=== PATIENT | male | born 1970 | race Caucasian/White ===

== ENCOUNTER 2020-07-31 23:23 | Emergency (ER) | payer OTHER, SELFPAY ==
--- NOTE | 2020-08-01 | ECG_ITS ---
Test Reason : CHEST PAIN Blood Pressure : / mmHG Vent. Rate : 079 BPM Atrial Rate : 079 BPM P-R Int : 196 ms QRS Dur : 154 ms QT Int : 408 ms P-R-T Axes : 055 024 -41 degrees QTc Int : 467 ms Atrial-sensed ventricular-paced rhythm Abnormal ECG When compared with ECG of 10-MAY-2020 23:18, Vent. rate has increased BY 9 BPM Referred By: Ran Lucero Electronically Signed By:JESSIE BELTRAN
[2020-08-01 01:10] VITALS: BP 126/76; PULSE 78; RESP 18; TEMP 36.9; O2SAT 99; BMI 35.5
--- NOTE | 2020-08-01 01:13 | XR_ITS ---
EXAMINATION: XR CHEST CLINICAL INFORMATION: Chest tightness COMPARISON: Report from 05/10/2020 TECHNIQUE: 2 views of the chest were obtained. FINDINGS: Left chest wall AICD/pacer with leads over the right atrium and right ventricle. Coronary sinus lead noted with curled course. Unfortunately, previous images are not available for comparison to assess for stability of lead positioning. The lungs are well expanded. There is no focal consolidation, edema, or effusion. No pneumothorax. The cardiomediastinal silhouette is within normal limits. No acute osseous abnormality. IMPRESSION: No acute pulmonary finding.
[2020-08-01 01:29] LABS: MANUAL DIFF FLAG NO
[2020-08-01 01:30] LABS: Basophils Percent Auto 0.5 % (0-2); Eosinophils Absolute Auto 0.2 X10*3/uL (0.0-0.4); Eosinophils Percent Auto 3.5 % (0-4); Hematocrit 39.3 % (42-52); Hemoglobin 13.8 g/dl (14.0-18.0); Imm Gran Abs Auto 0.03 X10*3/uL (0.00-0.03); Imm Gran Pct Auto 0.5 % (0.0-0.4); Lymphocytes Percent Auto 34.9 % (20-40); Mean Corpuscular HGB Conc 35.1 g/dl (31.0-36.0); Mean Corpuscular Hemoglobin 30.2 pg (27.0-33.0); Mean Platelet Volume 10.3 fL (9.4-12.4); Monocytes Absolute Auto 0.5 X10*3/uL (0.1-1.2); Monocytes Percent Auto 7.8 % (2-11); Neutrophils Absolute Auto 3.1 X10*3/uL (2.0-8.3); Neutrophils Percent Auto 52.8 % (45-73); Platelet Count 193 X10*3/uL (160-400); Red Blood Count 4.57 X10*6/uL (4.60-5.80); Red Cell Distribution Width 12.2 % (11.0-16.0); White Blood Count 5.8 X10*3/uL (4.8-10.8)
[2020-08-01 02:09] LABS: Anion Gap 13 (12-20); Blood Urea Nitrogen 16 mg/dL (9-16); Calcium 9.2 mg/dL (8.4-10.2); Carbon Dioxide 22 mmol/L (22-29); Chloride 103 mmol/L (96-108); Creatinine Clr Calc Pharmacy 74.3; Estimated Glomerular Filt Rate 57; Glucose Random 265 mg/dL (60-115); Sodium 134 mmol/L (135-145)
== END 2020-08-01 05:08 | disposition left against medical advice (07) ==
LOC: HO.ED 08-01 04:41
PROVIDERS: Emergency Provider Emergency Medicine
DX: Z20.828 Contact with and (suspected) exposure to other viral communicable diseases (principal)
CPT/HCPCS: 36415; 71046; 80048; 84484; 85025; 93005; 93010; 99282; 99283

== ENCOUNTER 2020-08-01 11:11 | Emergency (ER) | payer OTHER, SELFPAY ==
--- NOTE | 2020-08-01 11:12 | ECG_ITS ---
Test Reason : CHEST PAIN Blood Pressure : / mmHG Vent. Rate : 060 BPM Atrial Rate : 060 BPM P-R Int : 150 ms QRS Dur : 166 ms QT Int : 436 ms P-R-T Axes : 040 -07 -40 degrees QTc Int : 436 ms Atrial-sensed ventricular-paced rhythm Abnormal ECG When compared with ECG of 31-JUL-2020 23:25, Vent. rate has decreased BY 19 BPM Referred By: Dinora Munson Electronically Signed By:RUSTY WEBSTER MD
[2020-08-01 11:38] VITALS: BP 102/57; PULSE 73; RESP 18; TEMP 35.8; O2SAT 97; BMI 35.5
--- NOTE | 2020-08-01 14:09 | ED_ITS ---
HPI - Chest Pain General Chief Complaint: Chest Pain Stated Complaint: chest pain Time Seen by Provider: 08/01/20 13:42 Source: patient Mode of arrival: ambulatory History of Present Illness HPI narrative: 50-year-old male with a past medical history of DM, HTN, HLD, pacemaker, CHF, asthma c/o sudden onset chest tightness and SOB around 11:00 p.m. last night while rest. Reports symptoms constant since start. Also reports associated pain with inspiration. Denies fever, chills, cough, LE edema, calf pain, history of clots, recent travel, sick contacts, exposures to COVID-19 complaint: chest pain Onset (ago): day(s) Timing of current episode: constant Onset: during rest Severity: moderate Quality: tightness Risk Factors Coronary artery disease risk factors: diabetes, hyperlipidemia and hypertension Related Data Previous Rx's Medication Instructions Recorded albuterol sulfate 2 inh INHALATION Q4-6H PRN #1 ea 08/01/20 prednisone 40 mg PO DAILY 5 Days #10 tab 08/01/20 Allergies Allergy/AdvReac Type Severity Reaction Status Date / Time No Known Allergies Allergy Verified 08/01/20 11:38 [No Known Allergies*] Review of Systems Review of Systems: Constitutional: No Weight loss, No Fever, No Chills, No Night Sweats, No Fatigue, No Malaise ENT/Mouth: No Hearing loss, No Ear Pain, No Nasal Congestion, No Sinus Pain, No sore throat, No Rhinorrhea, No Swallowing Difficulty Eyes: No Eye Pain, No Swelling, No Redness, No Foreign Body, No Discharge, No Vision Changes Cardiovascular: Chest Pain, SOB, No Orthopnea, No Edema, No Palpitations Respiratory: No Cough, No Sputum, No Wheezing, No Smoke Exposure Gastrointestinal: No Nausea, No Vomiting, No Diarrhea, No Constipation, No abdominal Pain, No Hematochezia, No Melena Musculoskeletal: No joint pain, No Myalgias, No Joint Swelling Skin: No Skin Lesions, No rash Neuro: No Weakness, No Numbness, No Paresthesias, No Loss of Consciousness, No Dizziness, No Headache Psych: No Anxiety/Panic, No Depression, No SI/HI/AH/VH, No Social Issues, Heme/Lymph: No Bruising, No Bleeding, No Lymphadenopathy Endocrine: No Polyuria, No Polydipsia, No Temperature Intolerance Yes all other systems are reviewed and are negative PMFSH Past Medical History Attestation statement: The following information was validated with the patient. Medical History Diabetes High cholesterol HTN (hypertension) Pacemaker Social History Social History Advance Directives: No Advance Directives Information Provided: Yes Physical Exam Vital Signs and I&O and Narrative: Vital Signs and I&O: Vital Signs Temp 97.5 F 08/01/20 14:46 Pulse 60 08/01/20 14:46 Resp 22 H 08/01/20 14:46 BP 106/54 L 08/01/20 14:46 Pulse Ox 92 08/01/20 14:46 Intake & Output 07/31/20 08/01/20 08/01/20 18:59 06:59 18:59 Weight 99.798 kg Body Mass Index 35.5 Appearance: Alert. Oriented X3. No acute distress. Eyes: Pupils equal, round and reactive to light. ENT: Pharynx normal. Neck: Normal inspection. Neck supple. CVS: Normal heart rate and rhythm. Pulses normal. Respiratory: No respiratory distress. decreased breath sounds bibasilarly Abdomen: Soft and nontender. Skin: Skin warm and dry. Normal skin color. Normal skin turgor. Extremities: No lower extremity edema. No lower extremity edema. no calf pain Neuro: Oriented X 3. No motor deficit. No sensory deficit. Course Course Course Narrative: -1550-- D-dimer negative, creatinine slightly higher than baseline 1.47 >> will give 1 IVF initial troponin 5.0, repeat 5.6 > VT unlikely with delta CXR unremarkable -1600-- on re-evaluation patient reports symptomatic improvement after DuoNeb. Lungs with better air movement after treatment > Likely asthma exacerbation. also reports decreased p.o. intake. will give additional DuoNeb, IV Solu-Medrol and IVF with anticipated discharge home MDM - Chest Pain MDM Narrative Medical decision making narrative: 50-year-old male with a past medical history of DM, HTN, HLD, pacemaker, CHF, asthma c/o sudden onset chest tightness and SOB around 11:00 p.m. last night while rest. on exam VSS, NAD, nontoxic appearing, decreased breath sounds bibasilarly. Concern for ACS vs CHF vs PE vs asthma exacerbation. Low concern for dissection, viral syndrome/COVID-19, or pneumonia Plan: EKG, labs, CXR, albuterol, reassess Lab Data Result diagrams: 08/01/20 14:40 08/01/20 14:40 Labs: Lab Results 08/01/20 08/01/20 08/01/20 Range/Units 14:40 14:40 14:40 WBC 5.2 (4.8-10.8) X10*3/uL RBC 4.50 L (4.60-5.80) X10*6/uL Hgb 13.7 L (14.0-18.0) g/dl Hct 38.0 L (42-52) % MCV 84.4 (80-98) fL MCH 30.4 (27.0-33.0) pg MCHC 36.1 H (31.0-36.0) g/dl RDW 12.3 (11.0-16.0) % Plt Count 205 (160-400) X10*3/uL MPV 10.2 (9.4-12.4) fL Immature Gran % (Auto) 0.4 (0.0-0.4) % Neut % (Auto) 58.6 (45-73) % Lymph % (Auto) 30.0 (20-40) % [place] % (Auto) 7.5 (2-11) % Eos % (Auto) 3.1 (0-4) % Baso % (Auto) 0.4 (0-2) % Neut # (Auto) 3.0 (2.0-8.3) X10*3/uL Lymph # (Auto) 1.6 (1.2-4.9) X10*3/uL [place] # (Auto) 0.4 (0.1-1.2) X10*3/uL Eos # (Auto) 0.2 (0.0-0.4) X10*3/uL Baso # (Auto) 0.0 (0.0-0.2) X10*3/uL Abs Immat Gran (auto) 0.02 (0.00-0.03) X10*3/uL Absolute Nucleated RBC 0.000 (0.0-0.012) X10*3/uL Nucleated RBC % (auto) 0.0 (0.0-0.2) /100WBC D-Dimer < 200 NG/ML Sodium 137 (135-145) mmol/L Potassium 4.1 (3.3-5.1) mmol/l Chloride 102 (96-108) mmol/L Carbon Dioxide 24 (22-29) mmol/L Anion Gap 15 (12-20) BUN 16 (9-16) mg/dL Creatinine 1.47 H (0.5-1.4) mg/dL Estim Creat Clear Calc 67.2 Estimated GFR 51 Random Glucose 319 H (60-115) mg/dL Calcium 9.4 (8.4-10.2) mg/dL Magnesium 1.9 (1.6-2.6) mg/dL Total Bilirubin 0.3 (0.0-1.0) mg/dL Direct Bilirubin < 0.2 (0.0-0.5) mg/dL AST 16 (5-37) U/L ALT 23 (0-40) U/L Alkaline Phosphatase 85 (39-117) U/L Troponin I High Sens (<3.5-35.0) ng/L B-Natriuretic Peptide (<100) pg/mL Total Protein 7.0 (6.5-8.0) g/dL Albumin 4.2 (3.5-5.0) g/dL 08/01/20 Range/Units 14:40 WBC (4.8-10.8) X10*3/uL RBC (4.60-5.80) X10*6/uL Hgb (14.0-18.0) g/dl Hct (42-52) % MCV (80-98) fL MCH (27.0-33.0) pg MCHC (31.0-36.0) g/dl RDW (11.0-16.0) % Plt Count (160-400) X10*3/uL MPV (9.4-12.4) fL Immature Gran % (Auto) (0.0-0.4) % Neut % (Auto) (45-73) % Lymph % (Auto) (20-40) % [place] % (Auto) (2-11) % Eos % (Auto) (0-4) % Baso % (Auto) (0-2) % Neut # (Auto) (2.0-8.3) X10*3/uL Lymph # (Auto) (1.2-4.9) X10*3/uL [place] # (Auto) (0.1-1.2) X10*3/uL Eos # (Auto) (0.0-0.4) X10*3/uL Baso # (Auto) (0.0-0.2) X10*3/uL Abs Immat Gran (auto) (0.00-0.03) X10*3/uL Absolute Nucleated RBC (0.0-0.012) X10*3/uL Nucleated RBC % (auto) (0.0-0.2) /100WBC D-Dimer NG/ML Sodium (135-145) mmol/L Potassium (3.3-5.1) mmol/l Chloride (96-108) mmol/L Carbon Dioxide (22-29) mmol/L Anion Gap (12-20) BUN (9-16) mg/dL Creatinine (0.5-1.4) mg/dL Estim Creat Clear Calc Estimated GFR Random Glucose (60-115) mg/dL Calcium (8.4-10.2) mg/dL Magnesium (1.6-2.6) mg/dL Total Bilirubin (0.0-1.0) mg/dL Direct Bilirubin (0.0-0.5) mg/dL AST (5-37) U/L ALT (0-40) U/L Alkaline Phosphatase (39-117) U/L Troponin I High Sens 5.6 (<3.5-35.0) ng/L B-Natriuretic Peptide 53 (<100) pg/mL Total Protein (6.5-8.0) g/dL Albumin (3.5-5.0) g/dL ECG Data ECG #1: Attestation: I personally reviewed and interpreted this ECG as follows: Prior ECG tracings: available for review Interpretation: Atrial paced. Rate of 60. no ST elevation. unchanged from priors. Scores Heart Score History: -0- slightly suspicious ECG: -0- normal Age: -1- >45 - <65 Risk factory: -2- 3 or more risk factors or treated atherosclerosis Troponin: -0- < or = normal limit Score: 3 Risk: 1.7% Discharge Plan Discharge Clinical Impression: Chest pain, Asthma Instructions: Chest Pain (ED), Asthma (ED) Prescriptions: New prednisone 20 mg tablet 40 mg PO DAILY 5 Days Qty: 10 RF: 0 albuterol sulfate 90 mcg/actuation aerosol powdr breath activated 2 inh inhalation Q4-6H PRN (Reason: shortness of breath or wheezing) Qty: 1 RF: 0 Referrals: Tor Villela MD [Primary Care Provider] - 2 days Jose Nielson MD [Physician] - 2 days Print Language: Tunisian
[2020-08-01 14:46] VITALS: BP 106/54; PULSE 60; RESP 22; TEMP 36.4; O2SAT 92
[2020-08-01 14:54] LABS: MANUAL DIFF FLAG NO
[2020-08-01 14:56] LABS: Basophils Percent Auto 0.4 % (0-2); Eosinophils Absolute Auto 0.2 X10*3/uL (0.0-0.4); Eosinophils Percent Auto 3.1 % (0-4); Hemoglobin 13.7 g/dl (14.0-18.0); Imm Gran Abs Auto 0.02 X10*3/uL (0.00-0.03); Imm Gran Pct Auto 0.4 % (0.0-0.4); Lymphocytes Absolute Auto 1.6 X10*3/uL (1.2-4.9); Mean Corpuscular HGB Conc 36.1 g/dl (31.0-36.0); Mean Corpuscular Hemoglobin 30.4 pg (27.0-33.0); Mean Corpuscular Volume 84.4 fL (80-98); Mean Platelet Volume 10.2 fL (9.4-12.4); Monocytes Absolute Auto 0.4 X10*3/uL (0.1-1.2); Monocytes Percent Auto 7.5 % (2-11); Neutrophils Percent Auto 58.6 % (45-73); Platelet Count 205 X10*3/uL (160-400); Red Cell Distribution Width 12.3 % (11.0-16.0); White Blood Count 5.2 X10*3/uL (4.8-10.8)
[2020-08-01 15:06] LABS: D Dimer < 200 NG/ML
[2020-08-01] MEDS: Albuterol/Iprat 2.5/0.5MG 3 ML AMPUL.NEB INHALE ×2 (15:21→16:42)
[2020-08-01 15:27] LABS: Alanine Aminotransferase 23 U/L (0-40); Albumin Level 4.2 g/dL (3.5-5.0); Alkaline Phosphatase 85 U/L (39-117); Anion Gap 15 (12-20); Aspartate Amino Transferase 16 U/L (5-37); Bilirubin Direct < 0.2 mg/dL (0.0-0.5); Bilirubin Total 0.3 mg/dL (0.0-1.0); Blood Urea Nitrogen 16 mg/dL (9-16); Calcium 9.4 mg/dL (8.4-10.2); Carbon Dioxide 24 mmol/L (22-29); Chloride 102 mmol/L (96-108); Creatinine Clr Calc Pharmacy 67.2; Estimated Glomerular Filt Rate 51; Glucose Random 319 mg/dL (60-115); Magnesium 1.9 mg/dL (1.6-2.6); Potassium 4.1 mmol/l (3.3-5.1); Sodium 137 mmol/L (135-145)
[2020-08-01 15:30] LABS: B Type Natriuretic Peptide 53 pg/mL (<100); Troponin-I High Sensitivity 5.6 ng/L (<3.5-35.0)
--- NOTE | 2020-08-01 16:02 | PC.NURSE ---
REASSESSED BY MLP AT THIS TIME
[2020-08-01] MEDS: 0.9 % Sodium Chloride 1,000 ML 999 ML IVCONT (16:18)
[2020-08-01] MEDS: methylPREDNISolone Sod Succ/PF 125 MG/2 ML VIAL IVPUSH (16:19)
--- NOTE | 2020-08-01 16:19 | PC.NURSE ---
iv est 20 g l hand. ivf and steroids per orders. rt on way for 2nd ud
[2020-08-01 16:20] VITALS: BP 138/69; PULSE 76; RESP 18
== END 2020-08-01 17:30 | disposition home or self-care (01) ==
PROVIDERS: Physician Assistant; Emergency Provider Emergency Medicine; PCP Internal Medicine
DX: R07.9 Chest pain, unspecified (principal); J45.909 Unspecified asthma, uncomplicated; I10 Essential (primary) hypertension; E11.9 Type 2 diabetes mellitus without complications; Z20.828 Contact with and (suspected) exposure to other viral communicable diseases; Z79.899 Other long term (current) drug therapy
CPT/HCPCS: 36415; 80048; 80076; 83735; 83880; 84484; 85025; 85379; 93005; 96361; 96374; 99283; 99284; J2930

== ENCOUNTER → 2020-08-16 13:06 | Outpatient (BNVA) | payer OTHER, SELFPAY | PROVIDERS: PCP Internal Medicine; Referring Provider Internal Medicine; Visit Provider Nurse Practitioner Family | DX: I42.8 Other cardiomyopathies (principal); I10 Essential (primary) hypertension; E78.00 Pure hypercholesterolemia, unspecified; Z79.899 Other long term (current) drug therapy; Z95.810 Presence of automatic (implantable) cardiac defibrillator | CPT/HCPCS: 99214 ==

== ENCOUNTER 2020-11-09 13:10 | Outpatient (REF) | payer OTHER, SELFPAY | END 2020-11-09 13:11 | disposition home or self-care (01) | LOC: HO.LAB 13:10 | PROVIDERS: PCP Internal Medicine; Visit Provider Internal Medicine | DX: Z20.822 Contact with and (suspected) exposure to COVID-19 (principal) | CPT/HCPCS: 36415; C9803; U0003 ==

== ENCOUNTER 2020-12-12 12:59 | Outpatient (REF) | payer OTHER, SELFPAY ==
[2020-12-12 15:24] LABS: Anion Gap 14 (12-20); Carbon Dioxide 27 mmol/L (22-29); Chloride 97 mmol/L (96-108); Potassium 4.8 mmol/L (3.3-5.1); Sodium 133 mmol/L (135-145)
[2020-12-12 15:25] LABS: Blood Urea Nitrogen 21 mg/dL (9-16); Calcium 9.5 mg/dL (8.4-10.2); Estimated Glomerular Filt Rate 44
[2020-12-12 15:35] LABS: B Type Natriuretic Peptide 16 pg/mL (<100)
[2020-12-12 16:42] LABS: Glucose Random 448 mg/dL (60-115)
== END 2020-12-12 13:00 | disposition home or self-care (01) ==
LOC: HO.LAB 12:59
PROVIDERS: PCP Internal Medicine; Visit Provider Internal Medicine Cardiovascular Disease
DX: T82.110A Breakdown (mechanical) of cardiac electrode, initial encounter (principal); I50.20 Unspecified systolic (congestive) heart failure; I42.8 Other cardiomyopathies; Z45.02 Encounter for adjustment and management of automatic implantable cardiac defibrillator
CPT/HCPCS: 36415; 80048; 83880; 99212

== ENCOUNTER 2020-12-29 15:17 | Outpatient (REF) | payer OTHER, SELFPAY | END 2020-12-29 15:18 | disposition home or self-care (01) | LOC: HO.LAB 15:17 | PROVIDERS: Visit Provider Internal Medicine | DX: Z20.822 Contact with and (suspected) exposure to COVID-19 (principal) | CPT/HCPCS: 36415; C9803; U0003; U0005 ==

== ENCOUNTER → 2021-03-13 08:29 | Outpatient (BNVA) | payer OTHER, SELFPAY | PROVIDERS: PCP Internal Medicine; Visit Provider Nurse Practitioner Gerontology | DX: E11.22 Type 2 diabetes mellitus with diabetic chronic kidney disease (principal); I12.9 Hypertensive chronic kidney disease with stage 1 through stage 4 chronic kidney disease, or unspecified chronic kidney disease; N18.9 Chronic kidney disease, unspecified; E78.5 Hyperlipidemia, unspecified; E66.09 Other obesity due to excess calories; B35.3 Tinea pedis | CPT/HCPCS: 82947; 99212 ==

== ENCOUNTER → 2021-05-17 13:11 | Outpatient (REF) | payer OTHER, SELFPAY ==
--- NOTE | 2021-05-17 13:17 | CA_ITS ---
Transthoracic Echocardiogram Patient (Last, First, Middle): Ian Godinez, Gender: Male Date of : 1970 Age: 50 Procedure Date: 05/17/2021 Procedure Type: Transthoracic Echocardiogram Location: OP Height: 170.18 cm Weight: 97.52 kg BSA: 2.09 m2 Heart Rate: bpm BP: 110 / 64 mmHg Audio Installer: GREGG/FRANCES Referring MD: Jose Nielson MD Production Analyst: Jose Nielson MD Symptoms: I50.20 - Unspecified systolic (congestive) heart failure Study Quality: Fair/Contrast ECG Rhythm: Ventriculary paced rhythm Conclusions: - 1. [id number] LV systolic dysfunction with impaired relaxation filling pattern and elevated filling pressures 2. Moderately dilated left atrium 3. Mild mitral regurgitation 4. Normal RV systolic pressure 5. No pericardial effusion Findings Procedure Information Contrast agent, definity, is being given per protocol without apparent complications. Left Ventricle Normal left ventricular cavity size. There is normal left ventricular wall thickness. The left ventricular systolic function is mild to moderately decreased. The visually estimated ejection fraction is between 40-45%. There is moderate global hypokinesis. Spectral Doppler is indicative of an impaired relaxation filling pattern. Elevated filling pressures. E/E prime ratio is >15, consistent with elevated filling pressures. Right Ventricle Normal right ventricular cavity size and systolic function. There is an ICD wire seen in the right ventricle. Atria The left atrium is moderately dilated. There is no evidence of interatrial shunt. The right atrium is mildly dilated. A pacemaker wire is identified in the right atrium. Aortic Valve Normal aortic valve structure and function. There is no aortic valve stenosis. There is no aortic valve regurgitation. Mitral Valve There is mild anterior and posterior mitral leaflet thickening. There is mild mitral valve regurgitation. There is no mitral valve stenosis. Pulmonic Valve The pulmonic valve is likely normal. Tricuspid Valve Likely normal tricuspid valve structure and function. There is mild tricuspid valve regurgitation. The right ventricular systolic pressure is normal. The right ventricular systolic pressure is 29 mmHg. Normal right atrial pressure. There is no evidence of pulmonary hypertension. Great Vessels All visible segments of the aorta are normal in size. The pulmonary artery was not well visualized. Venous The inferior vena cava is normal in size and collapses greater than 50% with inspiration. Pericardium/Pleural There is no evidence of pericardial effusion. Prior Study Comparison No significant change compared to prior study dated: 07/07/2020. Measurements 2D Linear Measurements IVSd: 0.95 0.6-0.9/0.6-1.0 cm LVIDd: 5.45 3.9-5.3/4.2-5.9 cm LVIDd Index: 2.61 2.4-3.2/2.2-3.1 cm/m2 LVIDs: 4.55 2.0-3.6 cm LVPWd: 0.99 0.7-1.1 cm Ao Root: 3.30 2.1-3.5 cm LA Diam: 4.30 2.7-3.8/3.0-4.0 cm LAIDs Index: 2.06 1.5-2.3 cm/m2 LV Mass: 251.03 67-162/88-224 g LV Mass Index: 120.11 43-95/49-115 g/m2 LVOT Diam: 2.00 3.0+(-)1.3 cm 2D Systolic Function EF 4C: 41.60 >55% EF 2C: 40.40 >55% EF BiP: 40.70 >55% Mitral Valve MV Pk E: 1.18 MV PK A: 1.38 MV Decel Time: 270.00 E/A: 0.90 E'Lateral: 5.00 E'Medial: 5.22 E/E' Med: 22.60 E/E' Lat: 23.60 PHT: 79.00 MVA PHT: 2.78 Decel [place]: 4.38 Aortic Valve AoV Pk [place]: 1.68 AoV Mn Uastyn: 1.14 AoV VTI: 0.30 AoV Pk Grad: 11.00 Aov Mn Grad: 6.00 ALLAN Cont.VTI: 2.05 LVOT LVOT Pk Austyn: 1.11 LVOT Mn Austyn: 0.75 LVOT VTI: 0.19 LVOT Pk Grad: 5.00 LVOT Mn Grad: 3.00 LVOT Diam: 2.00 LVOT Area: 3.14 Diastolic Function MV Pk E: 1.18 MV Pk A: 1.38 E/A: 0.90 E'Medial: 5.22 E/E' Med: 22.60 E' Laterial: 5.00 E/E' Lat: 23.60 Tricuspid Valve TR Pk Austyn: 2.53 TR Pk Grad: 26.00 RA Press: 3.00 RVSP: 29.00 Great Vessels Aorta Ao Root-2D: 3.30 2.0-3.7 cm Ao Asc: 3.20 2.1-3.4 cm Ao Arch: 2.80 Updated in Other Vendor System with Status of Final Jose Nielson MD electronically signed on 05/18/2021 2:40:13 PM with status of Final
== END ==
LOC: HO.CARD 13:11
PROVIDERS: Visit Provider Internal Medicine Cardiovascular Disease
DX: I42.8 Other cardiomyopathies (principal); I50.20 Unspecified systolic (congestive) heart failure; Z95.810 Presence of automatic (implantable) cardiac defibrillator
CPT/HCPCS: 93306; Q9957

== ENCOUNTER → 2021-06-26 09:51 | Outpatient (BNVA) | payer OTHER, SELFPAY | PROVIDERS: PCP Internal Medicine; Visit Provider Nurse Practitioner Gerontology | DX: E11.22 Type 2 diabetes mellitus with diabetic chronic kidney disease (principal); I12.9 Hypertensive chronic kidney disease with stage 1 through stage 4 chronic kidney disease, or unspecified chronic kidney disease; N18.30 Chronic kidney disease, stage 3 unspecified; E78.00 Pure hypercholesterolemia, unspecified; E66.09 Other obesity due to excess calories; Z68.33 Body mass index [BMI] 33.0-33.9, adult | CPT/HCPCS: 82947; 99212 ==

== ENCOUNTER → 2021-07-23 10:35 | Outpatient (BNVA) | payer OTHER, SELFPAY | PROVIDERS: PCP Internal Medicine; Referring Provider Internal Medicine; Visit Provider Internal Medicine Cardiovascular Disease | DX: Z45.02 Encounter for adjustment and management of automatic implantable cardiac defibrillator (principal) | CPT/HCPCS: 99212 ==

== ENCOUNTER 2021-09-06 10:16 | Emergency (ER) | payer OTHER, SELFPAY ==
[2021-09-06 10:23] VITALS: BP 94/48; PULSE 73; RESP 19; TEMP 36.6; O2SAT 98; BMI 33.8
--- NOTE | 2021-09-06 11:25 | ED_ITS ---
HPI - Extremity Problem General Chief complaint: Extremity Injury, Upper Stated complaint: rt arm pain, itchy swollen hands Time Seen by Provider: 09/06/21 11:25 Source: patient Limitations: language barrier History of Present Illness HPI Narrative: Patient presents to the ER complaining of bilateral hand itching. Patient denies any pain. Patient interviewed with a foreign language interpreter. 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 Worsening itching over the past 24 hours. Patient also complaining of biceps patent after injuring his arm while pulling on a screw at work. Pain increases with range of motion or palpation of the bicipital tendon. Pain 6/10. Patient has longstanding history of hypercholesterolemia and diabetes which he takes metformin and Trulicity and Lantus 4. Symptoms are moderate. No other complaints at this time. No family members have similar rashes at home. Related Data Home Medications Medication Instructions Recorded Confirmed atorvastatin 20 mg tablet 20 mg PO DAILY 08/16/20 07/23/21 cholecalciferol (vitamin D3) 25 25 mcg PO QAM 08/16/20 07/23/21 mcg (1,000 unit) tablet trazodone 150 mg tablet 150 mg PO DAILY 08/16/20 07/23/21 insulin aspart U-100 100 unit/mL 12 unit SUBCUT ml 03/13/21 07/23/21 (3 mL) subcutaneous pen insulin glargine 100 unit/mL 40 unit SUBCUT ml 03/13/21 07/23/21 subcutaneous solution sertraline 100 mg tablet 100 mg PO tab 03/13/21 07/23/21 hydroxyzine pamoate 50 mg capsule 50 mg PO DAILY PRN 06/26/21 07/23/21 loratadine 10 mg tablet 10 mg PO DAILY 06/26/21 07/23/21 mirtazapine 45 mg tablet 45 mg PO BEDTIME 06/26/21 07/23/21 Previous Rx's Medication Instructions Recorded albuterol sulfate 2.5 mg/0.5 mL 5 mg INHALATION Q6H PRN #30 ea 08/01/20 solution for nebulization albuterol sulfate 90 mcg/actuation 2 inh INHALATION Q4-6H PRN #1 ea 08/01/20 breath activated powder inhaler blood sugar diagnostic (FreeStyle #150 ea 03/13/21 Lite Strips) lancets 33 gauge (TRUEplus Lancets) #200 ea 03/13/21 terbinafine HCl 1 % topical cream 1 appl TOPICAL BID #15 g 03/13/21 empagliflozin 10 mg tablet 10 mg PO QAM #30 tab 06/26/21 (Jardiance) metformin 500 mg tablet 500 mg PO BID #60 tab 06/26/21 dulaglutide 0.75 mg/0.5 mL 0.75 mg (0.5 mL) SUBCUT QWEEK #2 ml 07/04/21 subcutaneous pen injector (Trulicity) ivabradine 7.5 mg tablet (Corlanor) 7.5 mg PO BID #60 tab 08/08/21 sacubitril 97 mg-valsartan 103 mg 1 tab PO BID #60 tab 08/08/21 tablet (Entresto) spironolactone 25 mg tablet 25 mg PO QAM #90 tab 08/13/21 digoxin 250 mcg (0.25 mg) tablet 250 mcg PO QAM #90 tab 08/17/21 furosemide 80 mg tablet 80 mg PO QAM #90 tab 08/17/21 carvedilol 25 mg tablet See Rx Instructions PO BID #120 tab 09/06/21 dexamethasone 6 mg tablet 6 mg PO DAILY #4 tab 09/06/21 (Decadron) diphenhydramine HCl 50 mg capsule 50 mg PO TID PRN #20 cap 09/06/21 methocarbamol 750 mg tablet 750 mg PO TID PRN #30 tab 09/06/21 Allergies Allergy/AdvReac Type Severity Reaction Status Date / Time No Known Allergies Allergy Verified 06/26/21 10:22 [No Known Allergies*] Review of Systems Constitutional: Constitutional: Denies chills, Denies fever(s) and Denies headache(s) ENT: Denies headache(s) Cardiovascular: Cardiovascular: Denies chest pain and Denies dyspnea Respiratory: Respiratory: Denies dyspnea Gastrointestinal: Gastrointestinal: Denies nausea and Denies vomiting Musculoskeletal: Musculoskeletal: Denies joint swelling and Denies limited range of motion Comments: Right biceps pain Integumentary/Breasts: Skin/Breast: Reports rash Neurologic: Denies headache(s) [facility] Past Medical History Medical History Diabetes Heart failure with reduced ejection fraction High cholesterol HLD (hyperlipidemia) HTN (hypertension) Nonischemic cardiomyopathy Obesity due to excess calories NANO (obstructive sleep apnea) Pacemaker Type 2 diabetes mellitus with chronic kidney disease Surgical History History of circumcision History of permanent cardiac pacemaker placement (~2008) Hx of cardiac cath (~2006) Hx of transesophageal echocardiography (DAWN) for monitoring (~2014) Family History Family History Father HTN (hypertension) Diabetes CVD (cardiovascular disease) Hypercholesterolemia Mother Hypercholesterolemia HTN (hypertension) Diabetes Social History Social History Household Members: Significant Other Household Members Other:: SO:Thu Patient Tobacco Use Status: Current someday Tobacco user Advance Directives: No Physical Exam Vital Signs: Vital Signs: Last Vital Signs Temp 98 F 09/06/21 10:23 Pulse 73 09/06/21 10:23 Resp 19 09/06/21 10:23 BP 94/48 L 09/06/21 10:23 Pulse Ox 98 09/06/21 10:23 Body Mass Index 33.8 vital signs have been reviewed as normal and appeared to be correct. Blood pressure normal. Heart rate normal. Respiration rate normal. Temperature normal. Oxygen saturation normal. Appearance: Alert. Oriented X3. No acute distress. Head: Normal external exam. Normocephalic. Atraumatic. Eyes: PERRLA. EOMI. Conjunctiva and sclera normal. Eyelids normal. ENT: Pharynx normal. Uvula midline. Moist mucous membranes. Neck: Soft full range of motion CVS: Heart regular rate and rhythm no murmurs and rubs Respiratory: Breath sounds are clear to auscultation bilaterally. No accessory muscle use noted. Abdomen: Soft nontender no rebound or guarding positive bowel sounds Skin: Slight raised maculopapular rash to the bilateral hands webspaces are clear. Positive fortune cookie maker is equal bilaterally of the hands full flexion-extension positive pulses positive cessation no sign of lymphangitis. Extremities: Positive tenderness in the right bicep tendon no sign of bicipital tendon rupture. On exam. Neuro: Oriented X 3. No motor deficit. No sensory deficit. Reflexes normal. Course Course Course Narrative: Contact dermatitis Scabies Right arm pain Bicipital tendon rupture Bicipital tendinitis Symptoms consistent with a contact dermatitis and bicipital tendinitis. Will treat patient with diphenhydramine 0 short course of Decadron patient understands that his blood sugar will increase on the Decadron. Patient will also be placed on nonsteroidals and muscle relaxant for the right bicipital tendinitis. Discharge Plan Discharge Clinical Impression: Tendonitis, bicipital Contact dermatitis Qualifiers: Contact dermatitis type: irritant Contact dermatitis trigger: unspecified trigger Qualified Code(s): L24.9 - Irritant contact dermatitis, unspecified cause Patient Disposition: Home, Self-Care Instructions: Contact Dermatitis (ED) Additional Instructions: Rash seems to be secondary to a contact dermatitis medications as directed remember to check your blood sugars regularly since Decadron will increase her blood sugar. Clinical signs tendinitis in the right bicep. Prescriptions: New diphenhydramine HCl 50 mg capsule 50 mg PO TID PRN (Reason: itching) Qty: 20 RF: 0 dexamethasone [Decadron] 6 mg tablet 6 mg PO DAILY Qty: 4 RF: 0 methocarbamol 750 mg tablet 750 mg PO TID PRN (Reason: muscle spasm) Qty: 30 RF: 0 No Action Trulicity 0.75 mg/0.5 mL pen injector 0.75 mg subcut QWEEK Qty: 2 RF: 6 Corlanor 7.5 mg tablet 7.5 mg PO BID Qty: 60 RF: 5 Entresto 97-103 mg tablet 1 tab PO BID Qty: 60 RF: 5 spironolactone 25 mg tablet 25 mg PO QAM Qty: 90 RF: 1 furosemide 80 mg tablet 80 mg PO QAM Qty: 90 RF: 1 digoxin 250 mcg (0.25 mg) tablet 250 mcg PO QAM Qty: 90 RF: 1 carvedilol 25 mg tablet See Rx Instructions PO BID Qty: 120 RF: 3 albuterol sulfate 90 mcg/actuation aerosol powdr breath activated 2 inh inhalation Q4-6H PRN (Reason: shortness of breath or wheezing) Qty: 1 RF: 0 albuterol sulfate 2.5 mg/0.5 mL solution for nebulization 5 mg inhalation Q6H PRN (Reason: shortness of breath or wheezing) Qty: 30 RF: 0 atorvastatin 20 mg tablet 20 mg PO DAILY RF: 0 cholecalciferol (vitamin D3) 25 mcg (1,000 unit) tablet 25 mcg PO QAM RF: 0 trazodone 150 mg tablet 150 mg PO DAILY RF: 0 sertraline 100 mg tablet 100 mg PO RF: 0 insulin aspart U-100 100 unit/mL (3 mL) insulin pen 12 unit subcut RF: 0 Lantus U-100 Insulin 100 unit/mL solution 40 unit subcut RF: 0 (DME) FreeStyle Lite Strips Strip See Rx Instructions .ROUTE .MEDSUPPLY Qty: 150 RF: 11 (DME) lancets [TRUEplus Lancets] 33 gauge misc See Rx Instructions .ROUTE .MEDSUPPLY Qty: 200 RF: 11 terbinafine HCl 1 % cream 1 appl topical BID Qty: 15 RF: 1 loratadine 10 mg tablet 10 mg PO DAILY RF: 0 mirtazapine 45 mg tablet 45 mg PO BEDTIME RF: 0 hydroxyzine pamoate 50 mg capsule 50 mg PO DAILY PRNRF: 0 metformin 500 mg tablet 500 mg PO BID Qty: 60 RF: 6 Jardiance 10 mg tablet 10 mg PO QAM Qty: 30 RF: 6 Print Language: Pashto
== END 2021-09-06 11:56 | disposition home or self-care (01) ==
PROVIDERS: Emergency Provider Emergency Medicine; PCP Internal Medicine
DX: M75.21 Bicipital tendinitis, right shoulder (principal); L24.9 Irritant contact dermatitis, unspecified cause; E11.9 Type 2 diabetes mellitus without complications; I11.0 Hypertensive heart disease with heart failure; I50.20 Unspecified systolic (congestive) heart failure; Z79.4 Long term (current) use of insulin
CPT/HCPCS: 99283

== ENCOUNTER → 2021-09-11 09:46 | Outpatient (REF) | payer OTHER, SELFPAY ==
--- NOTE | ~2021-09-11 | NM_ITS ---
Lexiscan Myocardial perfusion study Indication: Chest pain, assess for coronary disease and ischemia Technique: The patient was brought in for a Lexiscan perfusion study on 09/12/2021 and was injected 0.4 mg of Lexiscan intravenously. Within a minute of this injection 35 mCi of sestamibi was given intravenously. Images were obtained using the SPECT gamma camera interlaced with the gating device. Images were obtained in supine position. Resting perfusion study was performed on 09/11/2021. Patient was administered 35 mCi of sestamibi intravenously at rest. Images were then obtained in supine position. Total DLP 104mGy-cm. Images were processed with the software and compared side to side in short axis, horizontal long axis and vertical long axis views. Findings: Raw acquisition reviewed. There is intense subdiaphragmatic hepatic tracer uptake. The stress perfusion study showed mildly diminished tracer uptake in the basal to mid septum and anterior septum; distal inferior wall. With CT attenuation correction, there is further diminished tracer uptake including the anterior wall, septum, anterior septum, apex. The gated study shows diminished LV systolic function with calculated LVEF of 29%. LV cavity is dilated in size. The gated study shows globally diminished wall thickening and contractility. Resting study shows diminished tracer uptake in the basal to mid septum and anterior septum; distal inferior wall and overall similar to the stress acquisition. Tracer uptake seems worse with the attenuation correction.. Gating at rest reveals globally diminished wall motion with ejection fraction at 24%. The findings are consistent with no clear reversible defects. Fixed defect in the basal to mid septum, anterior septum, distal inferior wall. NM/NM miah perf SPECT rest & str Impression: 1. Myocardial perfusion imaging study shows no evidence of ischemia. Fixed defects in the basal to mid anterior septum, septum probably related to known nonischemic cardiomyopathy. Distal inferior fixed defect could be from subdiaphragmatic uptake/diaphragmatic attenuation. 2. Gated LVEF is 29% during stress and 24% during rest. Correlate with echocardiogram. 3. Transient ischemic dilatation not present but LV cavity is dilated. EKG component of the test reported separately.
--- NOTE | 2021-09-11 09:51 | CA_ITS ---
Acquisition Time: 2021-09-12 10:12:42 Total Exercise Time: 00:02:00 Test Indications: Chest Pain Medications: SEE H Protocol: LEXISCAN Max HR: 088 BPM 51% of Pred: 170 BPM Max BP: 092/054 mmHG Max Work Load: 1.0 METS Pharmacological stress test with Lexiscan injection, while sitting and slowly kicking his legs, without anginal symptoms, without arrythmia, with low BP at baseline 92/50 and then 88/54 post injection, with nondiagnostic EKG for ischemia. In recovery he was given 100 cc normal saline infusion and Aminophylline 75mg IVP with improvement in BP to 90/54, asymptomatic . Nuclear images pending. Test reviewed with Dr Puente. Referred By: Jose Nielson Overread By: CONSTANTINE GAITAN
== END ==
LOC: HO.CARD 09:46
PROVIDERS: PCP Internal Medicine; Visit Provider Internal Medicine Cardiovascular Disease
DX: R07.9 Chest pain, unspecified (principal)
CPT/HCPCS: 78452; 93017; A9500; J0280; J2785

== ENCOUNTER → 2021-11-01 10:16 | Outpatient (BNVA) | payer OTHER, SELFPAY | PROVIDERS: PCP Internal Medicine; Visit Provider Nurse Practitioner Gerontology | DX: E11.22 Type 2 diabetes mellitus with diabetic chronic kidney disease (principal); I12.9 Hypertensive chronic kidney disease with stage 1 through stage 4 chronic kidney disease, or unspecified chronic kidney disease; N18.30 Chronic kidney disease, stage 3 unspecified; E78.00 Pure hypercholesterolemia, unspecified; E66.09 Other obesity due to excess calories; Z68.33 Body mass index [BMI] 33.0-33.9, adult; L60.0 Ingrowing nail | CPT/HCPCS: 82947; 83036; 99212 ==

== ENCOUNTER 2021-12-25 10:09 | Outpatient (REF) | payer OTHER, SELFPAY ==
[2021-12-25 10:51] LABS: MANUAL DIFF FLAG NO
[2021-12-25 11:04] LABS: Basophils Percent Auto 0.3 % (0-2); Eosinophils Absolute Auto 0.2 X10*3/uL (0.0-0.4); Eosinophils Percent Auto 2.7 % (0-4); Hematocrit 44.2 % (42.0-52.0); Hemoglobin 14.7 g/dl (14.0-18.0); Imm Gran Abs Auto 0.02 X10*3/uL (0.00-0.03); Imm Gran Pct Auto 0.3 % (0.0-0.4); Lymphocytes Absolute Auto 1.7 X10*3/uL (1.2-4.9); Lymphocytes Percent Auto 23.4 % (20-40); Mean Corpuscular HGB Conc 33.3 g/dl (31.0-36.0); Mean Corpuscular Hemoglobin 28.7 pg (27.0-33.0); Mean Corpuscular Volume 86.3 fL (80.0-98.0); Mean Platelet Volume 10.3 fL (9.4-12.4); Monocytes Absolute Auto 0.5 X10*3/uL (0.1-1.2); Monocytes Percent Auto 6.1 % (2-11); Neutrophils Absolute Auto 4.9 x10*3/uL (2.0-8.3); Neutrophils Percent Auto 67.2 % (45-73); Platelet Count 227 X10*3/uL (160-400); Red Blood Count 5.12 X10*6/uL (4.60-5.80); Red Cell Distribution Width 12.8 % (11.0-16.0); White Blood Count 7.4 X10*3/uL (4.8-10.8)
[2021-12-25 11:50] LABS: Phosphorus 2.6 mg/dL (2.7-4.5)
[2021-12-25 11:58] LABS: Alanine Aminotransferase 32 U/L (0-40); Albumin Level 4.8 g/dL (3.5-5.0); Alkaline Phosphatase 100 U/L (39-117); Anion Gap 17 (12-20); Aspartate Amino Transferase 18 U/L (5-37); Bilirubin Total 0.5 mg/dL (0.0-1.0); Blood Urea Nitrogen 30 mg/dL (9-16); Calcium 10.4 mg/dL (8.4-10.2); Carbon Dioxide 27 mmol/L (22-29); Chloride 97 mmol/L (96-108); Cholesterol 166 mg/dL; Estimated Glomerular Filt Rate 35; Glucose Fasting 250 mg/dL (60-99); HDL Cholesterol 34 mg/dL; Potassium 4.6 mmol/L (3.3-5.1); Sodium 136 mmol/L (135-145); Triglycerides 543 mg/dL
[2021-12-25 12:08] LABS: Vitamin D 25-OH Total 34.3 ng/mL (>30)
[2021-12-25 12:34] LABS: Creatinine Urine 18.19 mg/dL; Microalbumin Urine < 5.0 mg/L
[2021-12-25 12:46] LABS: Creatinine Urine 18.61 mg/dL; Total Protein Urine Random < 7 mg/dL (<12)
[2021-12-25 13:49] LABS: Reflex LDLD? Yes
[2021-12-26 05:31] LABS: LDL Cholesterol Direct 70 mg/dL (<100)
[2021-12-27 15:06] LABS: Calcium (PTHI) 10.5 mg/dL (8.6-10.3); PTHI 52 pg/mL (14-64)
== END 2021-12-25 10:10 | disposition home or self-care (01) ==
LOC: HO.LAB 10:09
PROVIDERS: Absent Provider Nurse Practitioner Gerontology; PCP Internal Medicine; Visit Provider Internal Medicine Nephrology
DX: I12.9 Hypertensive chronic kidney disease with stage 1 through stage 4 chronic kidney disease, or unspecified chronic kidney disease (principal); N18.32 Chronic kidney disease, stage 3b; E11.22 Type 2 diabetes mellitus with diabetic chronic kidney disease
CPT/HCPCS: 36415; 80053; 80061; 82043; 82306; 83721; 83970; 84100; 84156; 85025

== ENCOUNTER 2022-01-17 09:34 | Outpatient (REF) | payer OTHER, SELFPAY ==
[2022-01-17 12:31] LABS: B Type Natriuretic Peptide 20 pg/mL (<100)
[2022-01-17 12:35] LABS: Anion Gap 16 (12-20); Blood Urea Nitrogen 22 mg/dL (9-16); Calcium 10.4 mg/dL (8.4-10.2); Carbon Dioxide 28 mmol/L (22-29); Chloride 101 mmol/L (96-108); Estimated Glomerular Filt Rate 37; Glucose Random 137 mg/dL (60-115); Potassium 5.2 mmol/L (3.3-5.1); Sodium 140 mmol/L (135-145)
[2022-01-17 12:47] LABS: Digoxin 1.1 ng/mL (0.8-2.0)
== END 2022-01-17 09:35 | disposition home or self-care (01) ==
LOC: HO.LAB 09:34
PROVIDERS: PCP Internal Medicine; Referring Provider Internal Medicine; Visit Provider Internal Medicine Cardiovascular Disease
DX: Z01.810 Encounter for preprocedural cardiovascular examination (principal); I50.20 Unspecified systolic (congestive) heart failure; I48.20 Chronic atrial fibrillation, unspecified; Z79.899 Other long term (current) drug therapy
CPT/HCPCS: 36415; 80048; 80162; 83880; 99212

== ENCOUNTER 2022-01-25 07:41 | Day surgery (SDC) | payer OTHER, SELFPAY ==
--- NOTE | 2021-12-13 08:43 | HO.ANESPROP2 ---
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-D in situ [facility] Active Problems Active Problems: All Active Problems (Updated 12/10/21 @ 10:09 by Cristiana Tavarez, RN) Biventricular ICD (implantable cardioverter-defibrillator) in place (Acute) Implantable cardioverter-defibrillator lead failure (Acute) Tinea pedis of left foot (Acute) Ingrown toenail of left foot (Acute) Type 2 diabetes mellitus with chronic kidney disease (Acute) HLD (hyperlipidemia) (Acute) HTN (hypertension) (Acute) Obesity due to excess calories (Acute) Heart failure with reduced ejection fraction (Acute) High cholesterol (Acute) Nonischemic cardiomyopathy (Acute) Past Medical History Medical History (Updated 12/10/21 @ 10:09 by Cristiana Tavarez, RN) Asthma Diabetes GERD (gastroesophageal reflux disease) Heart failure with reduced ejection fraction High cholesterol HLD (hyperlipidemia) HTN (hypertension) Nonischemic cardiomyopathy Obesity due to excess calories NANO (obstructive sleep apnea) Pacemaker Type 2 diabetes mellitus with chronic kidney disease Family History Family History Father HTN (hypertension) Diabetes CVD (cardiovascular disease) Hypercholesterolemia Mother Hypercholesterolemia HTN (hypertension) Diabetes Surgical History Surgical History (Updated 12/10/21 @ 10:13 by Cristiana Tavarez RN) History of circumcision History of permanent cardiac pacemaker placement (~2008) History of tonsillectomy Hx of cardiac cath Hx of transesophageal echocardiography (DAWN) for monitoring Social History Social History Household Members: Significant Other Household Members Other:: SO:Thu Patient Tobacco Use Status: Current someday Tobacco user Meds Allergies Allergy/AdvReac Type Severity Reaction Status Date / Time No Known Allergies Allergy Verified 11/01/21 10:50 [No Known Allergies*] Home Medications Medication Instructions Recorded Confirmed Last Taken Type atorvastatin 20 mg tablet 20 mg PO DAILY 08/16/20 12/10/21 Unknown History cholecalciferol (vitamin D3) 25 25 mcg PO QAM 08/16/20 12/10/21 Unknown History mcg (1,000 unit) tablet trazodone 150 mg tablet 150 mg PO DAILY 08/16/20 12/10/21 Unknown History insulin aspart U-100 100 unit/mL 12 unit SUBCUT ml 03/13/21 11/01/21 Unknown History (3 mL) subcutaneous pen insulin glargine 100 unit/mL 40 unit SUBCUT BEDTIME ml 03/13/21 12/10/21 Unknown History subcutaneous solution sertraline 100 mg tablet 100 mg PO DAILY tab 03/13/21 12/10/21 Unknown History hydroxyzine pamoate 50 mg capsule 50 mg PO DAILY PRN 06/26/21 12/10/21 Unknown History loratadine 10 mg tablet 10 mg PO DAILY 06/26/21 12/10/21 Unknown History mirtazapine 45 mg tablet 45 mg PO BEDTIME 06/26/21 12/10/21 Unknown History aspirin 81 mg tablet,delayed 81 mg PO QPM 11/01/21 12/10/21 Unknown History release omeprazole 40 mg capsule,delayed 40 mg PO DAILY 11/01/21 12/10/21 Unknown History release pen needle, diabetic 32 gauge x #50 ea 11/01/21 11/01/21 Unknown History (Pentips) Exam Exam Date and Time: December 13, 2021 0843 Narrative Narrative: EKG 10/2021 Remote ICD function generated 11/13/2021.? ICD function is adequate.? Nonsustained VT episodes noted NM miah perf SPECT rest & str 08/2021 Impression: ? 1.? Myocardial perfusion imaging study shows no evidence of ischemia. Fixed defects in the basal to mid anterior septum, septum probably related to known nonischemic cardiomyopathy. Distal inferior fixed defect could be from subdiaphragmatic uptake/diaphragmatic attenuation. 2.? Gated LVEF is 29% during stress and 24% during rest. Correlate with echocardiogram. 3. Transient ischemic dilatation not present but LV cavity is dilated. ? EKG component of the test reported separately.(Nondiagnostic for ischemia) ECHO 04/2021 Conclusions: - 1. Tuqt-er-lglolqax LV systolic dysfunction with impaired? ? ? relaxation filling pattern and elevated filling pressures? 2. Moderately dilated left atrium? 3. Mild mitral regurgitation ? 4. Normal RV systolic pressure ? 5. No pericardial effusion ?? Assessment and Plan Assessment Anesthesia Assessment: Chart Reviewed
--- NOTE | 2022-01-24 10:22 | HO.ANESPROP2 ---
Documented by User: Johanny Hoffman NP 01/24/22 10:26 HPI - Anesthesia Eval Consult details Narrative: 51yo M for Upper Endoscopy and Colonoscopy LEAD MAN OVER ALL DIES IN PATTERN SHOP-D in situ Per Cardiology 01/17/22 Preoperative cardiovascular risk stratification this management with prior history of heart failure.? Clinically euvolemic and well compensated.? Currently optimized to undergo colonoscopy with low risk for perioperative cardiovascular morbidity mortality.? If use of cautery is anticipated, consider placing a magnet over the device. ? [facility] Active Problems Active Problems: All Active Problems (Updated 01/17/22 @ 10:17 by Jose Nielson MD) Biventricular ICD (implantable cardioverter-defibrillator) in place (Acute) Tinea pedis of left foot (Acute) Ingrown toenail of left foot (Acute) Type 2 diabetes mellitus with chronic kidney disease (Acute) HLD (hyperlipidemia) (Acute) HTN (hypertension) (Acute) Obesity due to excess calories (Acute) Heart failure with reduced ejection fraction (Acute) High cholesterol (Acute) Nonischemic cardiomyopathy (Acute) Past Medical History Medical History Asthma Diabetes GERD (gastroesophageal reflux disease) Heart failure with reduced ejection fraction High cholesterol HLD (hyperlipidemia) HTN (hypertension) Implantable cardioverter-defibrillator lead failure Nonischemic cardiomyopathy Obesity due to excess calories NANO (obstructive sleep apnea) Pacemaker Type 2 diabetes mellitus with chronic kidney disease Family History Family History Father HTN (hypertension) Diabetes CVD (cardiovascular disease) Hypercholesterolemia Mother Hypercholesterolemia HTN (hypertension) Diabetes Surgical History Surgical History History of circumcision History of permanent cardiac pacemaker placement (~2008) History of tonsillectomy Hx of cardiac cath Hx of transesophageal echocardiography (DAWN) for monitoring Social History Social History Household Members: Significant Other Household Members Other:: SO:Thu Patient Tobacco Use Status: Current someday Tobacco user Tobacco use type: Cigarette Use of substances other than those prescribed or required for medical reasons: No Are you DNR?: No Advance Directives: No Advance Directives Information Provided: Yes Recently lost weight without trying: No Meds Allergies Allergy/AdvReac Type Severity Reaction Status Date / Time No Known Allergies Allergy Verified 11/01/21 10:50 [No Known Allergies*] Home Medications Medication Instructions Recorded Confirmed Last Taken Type atorvastatin 20 mg tablet 20 mg PO DAILY 08/16/20 01/17/22 Unknown History cholecalciferol (vitamin D3) 25 25 mcg PO QAM 08/16/20 01/17/22 Unknown History mcg (1,000 unit) tablet trazodone 150 mg tablet 150 mg PO DAILY 08/16/20 01/17/22 Unknown History insulin aspart U-100 100 unit/mL 12 unit SUBCUT ml 03/13/21 01/17/22 Unknown History (3 mL) subcutaneous pen insulin glargine 100 unit/mL 40 unit SUBCUT BEDTIME ml 03/13/21 01/17/22 Unknown History subcutaneous solution sertraline 100 mg tablet 100 mg PO DAILY tab 03/13/21 01/17/22 Unknown History hydroxyzine pamoate 50 mg capsule 50 mg PO DAILY PRN 06/26/21 01/17/22 Unknown History loratadine 10 mg tablet 10 mg PO DAILY 06/26/21 01/17/22 Unknown History mirtazapine 45 mg tablet 45 mg PO BEDTIME 06/26/21 01/17/22 Unknown History aspirin 81 mg tablet,delayed 81 mg PO QPM 11/01/21 01/25/22 01/24/22 History release omeprazole 40 mg capsule,delayed 40 mg PO DAILY 11/01/21 01/17/22 Unknown History release pen needle, diabetic 32 gauge x #50 ea 11/01/21 01/17/22 Unknown History (P[place]ips) Exam Exam Date and Time: January 24, 2022 1022 Pertinent Lab Results Pertinent Lab Results: Laboratory Tests 12/25/21 01/17/22 10:50 11:08 WBC 7.4 Hgb 14.7 Hct 44.2 Plt Count 227 Sodium 140 Potassium 5.2 H Chloride 101 Carbon Dioxide 28 BUN 22 H Creatinine 1.93 H Laboratory Tests 01/17/22 11:08 B-Natriuretic Peptide 20 Narrative Narrative: EKG 10/2021 Remote ICD function generated 11/13/2021.? ICD function is adequate.? Nonsustained VT episodes noted NM miah perf SPECT rest & str 08/2021 Impression: ? 1.? Myocardial perfusion imaging study shows no evidence of ischemia. Fixed defects in the basal to mid anterior septum, septum probably related to known nonischemic cardiomyopathy. Distal inferior fixed defect could be from subdiaphragmatic uptake/diaphragmatic attenuation. 2.? Gated LVEF is 29% during stress and 24% during rest. Correlate with echocardiogram. 3. Transient ischemic dilatation not present but LV cavity is dilated. ? EKG component of the test reported separately.(Nondiagnostic for ischemia) ECHO 04/2021 Conclusions: - 1. Khvt-cx-vyloydwr LV systolic dysfunction with impaired? ? ? relaxation filling pattern and elevated filling pressures? 2. Moderately dilated left atrium? 3. Mild mitral regurgitation ? 4. Normal RV systolic pressure ? 5. No pericardial effusion ?? Documented by User: Neal Anderson MD 01/28/22 21:22 [facility] Past Medical History Medical History Asthma Diabetes GERD (gastroesophageal reflux disease) Heart failure with reduced ejection fraction High cholesterol HLD (hyperlipidemia) HTN (hypertension) Implantable cardioverter-defibrillator lead failure Nonischemic cardiomyopathy Obesity due to excess calories NANO (obstructive sleep apnea) Pacemaker Type 2 diabetes mellitus with chronic kidney disease Family History Family History Father HTN (hypertension) Diabetes CVD (cardiovascular disease) Hypercholesterolemia Mother Hypercholesterolemia HTN (hypertension) Diabetes Family history of problems with anesthesia: No Surgical History Surgical History History of circumcision History of permanent cardiac pacemaker placement (~2008) History of tonsillectomy Hx of cardiac cath Hx of transesophageal echocardiography (DAWN) for monitoring History of Problems with Anesthesia: No Social History Social History Household Members: Significant Other Household Members Other:: SO:Thu Patient Tobacco Use Status: Current someday Tobacco user Tobacco use type: Cigarette Use of substances other than those prescribed or required for medical reasons: No Are you DNR?: No Advance Directives: No Advance Directives Information Provided: Yes Recently lost weight without trying: No Meds Allergies Allergy/AdvReac Type Severity Reaction Status Date / Time No Known Allergies Allergy Verified 11/01/21 10:50 [No Known Allergies*] Home Medications Medication Instructions Recorded Confirmed Last Taken Type atorvastatin 20 mg tablet 20 mg PO DAILY 08/16/20 01/17/22 Unknown History cholecalciferol (vitamin D3) 25 25 mcg PO QAM 08/16/20 01/17/22 Unknown History mcg (1,000 unit) tablet trazodone 150 mg tablet 150 mg PO DAILY 08/16/20 01/17/22 Unknown History insulin aspart U-100 100 unit/mL 12 unit SUBCUT ml 03/13/21 01/17/22 Unknown History (3 mL) subcutaneous pen insulin glargine 100 unit/mL 40 unit SUBCUT BEDTIME ml 03/13/21 01/17/22 Unknown History subcutaneous solution sertraline 100 mg tablet 100 mg PO DAILY tab 03/13/21 01/17/22 Unknown History hydroxyzine pamoate 50 mg capsule 50 mg PO DAILY PRN 06/26/21 01/17/22 Unknown History loratadine 10 mg tablet 10 mg PO DAILY 06/26/21 01/17/22 Unknown History mirtazapine 45 mg tablet 45 mg PO BEDTIME 06/26/21 01/17/22 Unknown History aspirin 81 mg tablet,delayed 81 mg PO QPM 11/01/21 01/25/22 01/24/22 History release omeprazole 40 mg capsule,delayed 40 mg PO DAILY 11/01/21 01/17/22 Unknown History release pen needle, diabetic 32 gauge x #50 ea 11/01/21 01/17/22 Unknown History (Pentips) Exam Airway Mallampati Class: II TM Dist: >3cm Neck ROM: Full Loose/Missing/Broken Teeth: Yes Heart: S1 S2 Lungs: b/l breath sounds Assessment and Plan Assessment Anesthesia Assessment: Anesthesia Plan Discussed Final Anesthetic Review Family History of Problems with Anesthesia: No History of Problems with Anesthesia: No NPO: Yes ASA Class: III Final Preanesthetic Review: Meds/Allgs Chart Reviewed, Consent Obtained/Reviewed and Anes Risks/Benef Reviewed Patient Risk: High Procedure Risk: Intermediate Anesthetic Plan Anesthetic Plan: MAC: Disposition: Standard PACU
[2022-01-25] VITALS (9 sets, daily range): BP systolic 83–115; BP diastolic 47–70; PULSE 73–88; RESP 18–20; TEMP 36.2–36.7; O2SAT 95–98; BMI 31.3
[2022-01-25 07:51] LABS: Glucose, Whole Blood 264 mg/dL (60-115)
--- NOTE | 2022-01-25 08:38 | PC.NURSE ---
anesthesia aware of ptatients bs results
[2022-01-25] MEDS: Lactated Ringers 1,000 ML 50 ML IVCONT (08:50)
[2022-01-25] MEDS: Insulin Lispro 100 UNIT/ML 3 ML VIAL SUBCUT (09:02)
--- NOTE | 2022-01-25 09:56 | P.BOP_ITS ---
Brief Operative Note Date of Service: 01/25/22 Pre-op diagnosis: GERD, Screening Post-op diagnosis: other (Small hiatal hernia, Antral gastritis, Diverticulosis) Procedure: EGD with biopsy, Colonoscopy to the cecum Surgeon: Juan M Morel Anesthesia: MAC Was an Transportation Maintenance Operator used for this Procedure?: No Estimated blood loss (mL): 2.0 Pathology: other (A. Gastric antrum B. EG Junction at 40cm) Condition: stable Disposition: PACU
[2022-01-25 10:24] LABS: Glucose, Whole Blood 186 mg/dL (60-115)
--- NOTE | 2022-01-25 11:33 | OP_ITS ---
SURGEON: Juan M Morel MD INDICATIONS: The patient presents for evaluation of gastroesophageal reflux and colorectal cancer screening. Full consent was obtained from him for this, including risks of bleeding and perforation. PREOPERATIVE DIAGNOSIS: POSTOPERATIVE DIAGNOSIS: PROCEDURE PERFORMED: Esophagogastroduodenoscopy with biopsies, and colonoscopy to the cecum. ESTIMATED BLOOD LOSS: COMPLICATIONS: ANESTHESIA: Monitored anesthesia care. ASSISTANTS: SPECIMENS: PREOPERATIVE DIAGNOSES: Gastroesophageal reflux and colorectal cancer screening. POSTOPERATIVE DIAGNOSES: Gastroesophageal reflux and colorectal cancer screening, small hiatal hernia, mild antral gastritis, mild diverticulosis, small internal hemorrhoids. DESCRIPTION OF PROCEDURE: The patient was placed in the left lateral decubitus position. The Olympus video gastroscope was passed in the posterior oropharynx and upper esophagus under direct vision. The scope was passed slowly into the distal esophagus. The gastroesophageal junction appeared at 40 cm. There was some very slight irregularity consistent with reflux, but no definitive evidence of Feliciano's mucosa and there was no esophagitis. The scope entered into the stomach, there was a minimal hiatal hernia. The scope was advanced to pylorus and duodenum was cannulated to the descending portion. The duodenum including the bulb appeared normal without mass or ulceration. The scope was withdrawn back to the stomach. The gastric antrum had some areas of edema and erythema consistent with mild gastritis. There were no erosions nor ulceration. There was good peristalsis. Biopsies were obtained. The scope was retroflexed visualizing the proximal stomach carefully, which appeared normal, without any sign of mass or ulceration. The scope was straightened and withdrawn back to the esophagus. Biopsies were obtained at the EG junction at 40 cm. Proximal to that, the esophageal mucosa appeared normal. The scope was withdrawn from the patient. He was turned around for colonoscopy. The digital rectal exam revealed no abnormalities. The Olympus video pediatric colonoscope was entered into the rectum and advanced easily to the cecum. Once in the cecum. I did identify normal-appearing cecal pouch with appendiceal orifice and a normal-appearing ileocecal valve. The entire cecum and ileocecal valve were well visualized and appeared normal. The scope was slowly withdrawn assessing all mucosal surfaces carefully. Preparation was excellent. I did not visualize any sign of polyps, colitis, nor angiodysplasia. There were occasional diverticula noted in the sigmoid colon. In the rectum, scope was retroflexed visualizing internal hemorrhoids, but no other pathology. The rectal mucosa appeared normal. The scope was straightened and withdrawn from the patient. He tolerated both procedures well and was returned to recovery area in stable condition. IMPRESSION: 1. Small hiatal hernia, gastroesophageal reflux. 2. Mild antral gastritis. 3. Sigmoid diverticulosis. 4. Internal hemorrhoids. PLAN: The results of biopsies will be checked. He will continue his daily omeprazole. He was advised to resume his aspirin by tomorrow. He should have a repeat colonoscopy for screening in 10 years. He will otherwise see me on a p.r.n. basis. MD ALBA Gamboa/TESSA / [phone]
== END 2022-01-25 11:15 | disposition home or self-care (01) ==
PROVIDERS: PCP Internal Medicine; Visit Provider Internal Medicine
PROC: (CPT 43239; principal; 2022-01-25 09:10)
DX: Z12.11 Encounter for screening for malignant neoplasm of colon (principal); K57.30 Diverticulosis of large intestine without perforation or abscess without bleeding; K64.8 Other hemorrhoids; K21.00 Gastro-esophageal reflux disease with esophagitis, without bleeding; K29.70 Gastritis, unspecified, without bleeding; K44.9 Diaphragmatic hernia without obstruction or gangrene; I13.0 Hypertensive heart and chronic kidney disease with heart failure and stage 1 through stage 4 chronic kidney disease, or unspecified chronic kidney disease; I50.22 Chronic systolic (congestive) heart failure; N18.30 Chronic kidney disease, stage 3 unspecified; E11.22 Type 2 diabetes mellitus with diabetic chronic kidney disease; E78.5 Hyperlipidemia, unspecified; I27.20 Pulmonary hypertension, unspecified; J45.909 Unspecified asthma, uncomplicated; Z79.4 Long term (current) use of insulin; Z79.82 Long term (current) use of aspirin; Z79.899 Other long term (current) drug therapy
CPT/HCPCS: 43239; G0121; 82947; 88305; 88342; J2370

== ENCOUNTER → 2022-01-31 10:09 | Outpatient (BNVA) | payer OTHER, SELFPAY | PROVIDERS: PCP Internal Medicine; Visit Provider Nurse Practitioner Gerontology | DX: E11.22 Type 2 diabetes mellitus with diabetic chronic kidney disease (principal); E11.21 Type 2 diabetes mellitus with diabetic nephropathy; I13.0 Hypertensive heart and chronic kidney disease with heart failure and stage 1 through stage 4 chronic kidney disease, or unspecified chronic kidney disease; I50.20 Unspecified systolic (congestive) heart failure; N18.30 Chronic kidney disease, stage 3 unspecified; E78.5 Hyperlipidemia, unspecified; E78.00 Pure hypercholesterolemia, unspecified; E66.09 Other obesity due to excess calories; F17.210 Nicotine dependence, cigarettes, uncomplicated; Z68.32 Body mass index [BMI] 32.0-32.9, adult; Z95.0 Presence of cardiac pacemaker; Z98.890 Other specified postprocedural states; Z79.82 Long term (current) use of aspirin; Z79.4 Long term (current) use of insulin; Z79.899 Other long term (current) drug therapy | CPT/HCPCS: 82947; 83036; 99212 ==

== ENCOUNTER 2022-05-07 11:58 | Emergency (ER) | payer OTHER, MEDICAID, SELFPAY ==
--- NOTE | ~2022-05-07 | XR_ITS ---
EXAMINATION: XR CHEST CLINICAL INFORMATION: Dizziness. Low blood pressure. COMPARISON: Previous chest x-ray most recent July 2020 TECHNIQUE: 2 views of the chest were obtained. FINDINGS: Left subclavian pacemaker AICD device appear unchanged. The cardiac and mediastinal contours are normal. The lungs are clear. There is no pleural effusion or pneumothorax. Bony structures are normal. XR/XR chest 2V IMPRESSION: No evidence for acute disease in the chest.
[2022-05-07 12:44] VITALS: BP 99/52; PULSE 60; RESP 19; TEMP 36.9; O2SAT 98; BMI 32.5
--- NOTE | 2022-05-07 12:48 | ECG_ITS ---
Test Reason : dizziness Blood Pressure : / mmHG Vent. Rate : 060 BPM Atrial Rate : 060 BPM P-R Int : 194 ms QRS Dur : 180 ms QT Int : 474 ms P-R-T Axes : 058 -40 078 degrees QTc Int : 474 ms AV dual-paced rhythm Biventricular pacemaker detected Abnormal ECG When compared with ECG of 01-AUG-2020 11:12, No significant change was found Referred By: Generic ED Physician Electronically Signed By:GLO HUNTLEY MD
[2022-05-07 13:21] LABS: MANUAL DIFF FLAG NO
[2022-05-07 13:23] LABS: Appearance Urine CLEAR; Color Urine YELLOW; Glucose Urine UA >=1000 MG/DL (NEG); Leukocyte Esterase Urine NEG (NEG); Nitrite Urine NEG (NEG); Urine Blood NEG (NEG); Urine Ketones NEG (NEG); Urine Protein NEG (NEG-TRACE)
[2022-05-07 13:24] LABS: Basophils Percent Auto 0.5 % (0-2); Eosinophils Absolute Auto 0.1 X10*3/uL (0.0-0.4); Eosinophils Percent Auto 2.3 % (0-4); Hematocrit 42.4 % (42.0-52.0); Hemoglobin 14.6 g/dl (14.0-18.0); Imm Gran Abs Auto 0.02 X10*3/uL (0.00-0.03); Imm Gran Pct Auto 0.3 % (0.0-0.4); Lymphocytes Absolute Auto 1.7 X10*3/uL (1.2-4.9); Lymphocytes Percent Auto 27.4 % (20-40); Mean Corpuscular HGB Conc 34.4 g/dl (31.0-36.0); Mean Corpuscular Hemoglobin 29.7 pg (27.0-33.0); Mean Corpuscular Volume 86.2 fL (80.0-98.0); Mean Platelet Volume 9.7 fL (9.4-12.4); Monocytes Absolute Auto 0.6 X10*3/uL (0.1-1.2); Monocytes Percent Auto 9.2 % (2-11); Neutrophils Absolute Auto 3.7 x10*3/uL (2.0-8.3); Neutrophils Percent Auto 60.3 % (45-73); Platelet Count 198 X10*3/uL (160-400); Red Blood Count 4.92 X10*6/uL (4.60-5.80); Red Cell Distribution Width 13.3 % (11.0-16.0); White Blood Count 6.1 X10*3/uL (4.8-10.8)
--- NOTE | 2022-05-07 13:33 | ED_ITS ---
HPI - General Adult General Chief complaint: General Medical Stated complaint: Low Blood Pressure Dizzy Time Seen by Provider: 05/07/22 13:17 Source: patient Mode of arrival: ambulatory Limitations: no limitations History of Present Illness HPI narrative: patient with headache, diaphoresis and dizziness. the symptoms happened yesterday, but has not had them before. No history of migraine ANGELES. Patient did not know his blood pressure was running low, no recent changes to his medication. Patient has had 15lbs weight loss over the last three months. Onset (ago): day(s) Severity: moderate Exacerbating factors: movement and other (standing) Associated symptoms: headaches and weakness Related Data Home Medications Medication Instructions Recorded Confirmed atorvastatin 20 mg tablet 20 mg PO DAILY 08/16/20 01/31/22 cholecalciferol (vitamin D3) 25 25 mcg PO QAM 08/16/20 01/31/22 mcg (1,000 unit) tablet trazodone 150 mg tablet 150 mg PO DAILY 08/16/20 01/31/22 insulin glargine 100 unit/mL 40 unit subcut BEDTIME 03/13/21 01/31/22 subcutaneous solution sertraline 100 mg tablet 100 mg PO DAILY 03/13/21 01/31/22 hydroxyzine pamoate 50 mg capsule 50 mg PO DAILY PRN Anxiety 06/26/21 01/31/22 loratadine 10 mg tablet 10 mg PO DAILY 06/26/21 01/31/22 mirtazapine 45 mg tablet 45 mg PO BEDTIME 06/26/21 01/31/22 aspirin 81 mg tablet,delayed 81 mg PO QPM 11/01/21 01/31/22 release omeprazole 40 mg capsule,delayed 40 mg PO DAILY 11/01/21 01/31/22 release pen needle, diabetic 32 gauge x #50 ea 11/01/21 01/31/22/32 (Pentips) Previous Rx's Medication Instructions Recorded albuterol sulfate 2.5 mg/0.5 mL 5 mg inhalation Q6H PRN shortness 08/01/20 solution for nebulization of breath or wheezing #30 ea albuterol sulfate 90 mcg/actuation 2 inh inhalation Q4-6H PRN 08/01/20 breath activated powder inhaler shortness of breath or wheezing #1 ea lancets 33 gauge (TRUEplus Lancets) #200 ea 03/13/21 terbinafine HCl 1 % topical cream 1 appl topical BID #15 grams 03/13/21 diphenhydramine HCl 50 mg capsule 50 mg PO TID PRN itching #20 caps 09/06/21 methocarbamol 750 mg tablet 750 mg PO TID PRN muscle spasm #30 09/06/21 tabs dulaglutide 0.75 mg/0.5 mL 0.75 mg (0.5 mL) subcut QWEEK #2 mL 12/28/21 subcutaneous pen injector ([employer]) fenofibrate micronized 30 mg 30 mg PO DAILY #30 caps 01/31/22 capsule flash glucose scanning reader #1 ea 01/31/22 (FreeStyle Garrick 2 Hobbs) flash glucose sensor (FreeStyle #2 ea 01/31/22 Garrick 2 Sensor) insulin aspart U-100 100 unit/mL 12 - 20 unit (0.12 - 0.2 mL) 01/31/22 (3 mL) subcutaneous pen subcut TID #15 mL carvedilol 25 mg tablet See Rx Instructions PO BID #120 02/04/22 tabs metformin 500 mg tablet 500 mg PO BID #60 tabs 02/05/22 spironolactone 25 mg tablet 25 mg PO QAM #90 tabs 02/08/22 digoxin 250 mcg (0.25 mg) tablet 250 mcg PO QAM #90 tabs 03/06/22 furosemide 80 mg tablet 80 mg PO QAM #90 tabs 03/06/22 ivabradine 7.5 mg tablet (Corlanor) 7.5 mg PO BID #60 tabs 03/06/22 sacubitril 97 mg-valsartan 103 mg 1 tab PO BID #60 tabs 03/06/22 tablet (Entresto) empagliflozin 25 mg tablet 25 mg PO QAM #30 tabs 04/30/22 (Jardiance) blood sugar diagnostic (FreeStyle #150 ea 05/02/22 Lite Strips) Allergies Allergy/AdvReac Type Severity Reaction Status Date / Time No Known Allergies Allergy Verified 01/31/22 10:16 [No Known Allergies*] Review of Systems Constitutional: Constitutional: Reports no additional constitutional complaints Eyes: Eyes: Reports no additional eye complaints ENT: Denies dizziness Cardiovascular: Cardiovascular: Reports no additional cardiovascular complaints Respiratory: Respiratory: Reports as per HPI Gastrointestinal: Gastrointestinal: Reports no additional gastrointestinal complaints Musculoskeletal: Musculoskeletal: Reports no additional musculoskeletal complaints Integumentary/Breasts: Skin/Breast: Denies rash Neurologic: Reports system reviewed and no additional complaints, except as documented, Denies dizziness and Denies Sensory deficit (Neuro) Psychiatric: Psychiatric: Denies anxiety [facility] [place] Past Medical History Medical History Asthma Diabetes GERD (gastroesophageal reflux disease) Heart failure with reduced ejection fraction High cholesterol HLD (hyperlipidemia) HTN (hypertension) Implantable cardioverter-defibrillator lead failure Nonischemic cardiomyopathy Obesity due to excess calories NANO (obstructive sleep apnea) Pacemaker Type 2 diabetes mellitus with chronic kidney disease Surgical History History of circumcision History of permanent cardiac pacemaker placement (~2008) History of tonsillectomy Hx of cardiac cath Hx of transesophageal echocardiography (DAWN) for monitoring Family History Family History Father HTN (hypertension) Diabetes CVD (cardiovascular disease) Hypercholesterolemia Mother Hypercholesterolemia HTN (hypertension) Diabetes Social History Social History Household Members: Significant Other Household Members Other:: SO:Thu Alcohol intake: current Alcohol intake frequency: holidays/special occasions only Patient Tobacco Use Status: Current someday Tobacco user Tobacco use type: Cigarette Smoked in Last 30 Days: Yes Use of substances other than those prescribed or required for medical reasons: No Advance Directives: No Advance Directives Information Provided: Yes Physical Exam ED Vital Signs: Vital Signs - 24 hr 05/07/22 12:44 05/07/22 14:48 Temperature 98.5 F 97.6 F Pulse Rate 60 60 Respiratory Rate 19 12 Blood Pressure 99/52 L 105/53 L Pulse Oximetry 98 96 Oxygen Delivery Method Room Air Room Air BMI result Body Mass Index 32.5 Const General: healthy appearing Nutritional Appearance: average body habitus Orientation/consciousness: oriented to person and patient oriented x3 Limitations: no limitations HENMT Head: Yes normal to inspection Ears: external ears normal General nose exam: Normal external nose present Mouth: Normal oral and palatal mucosa present and oropharynx normal Throat: Yes posterior oropharynx normal Eyes General: appearance normal, both eyes and all related structures Neck Neck: Yes normal visual inspection Chest Chest palpation & inspection: normal inspection of the chest Resp Auscultation: clear to auscultation bilaterally Cardio Jugular venous distension: no JVD Rate: regular rate Rhythm: regular rhythm Heart sounds: S1 normal heart sound present and S2 normal heart sound present GI Inspection: Yes normal to inspection Palpation (GI): Soft to palpation, nontender and No hepatosplenomegaly present Auscultation: normal bowel sounds General: Yes no CVA tenderness Back/Spine/Pelvis Back: no CVA tenderness Skin General skin exam: no rashes or lesions noted Neuro General: oriented to person and patient oriented x3 Cranial nerves: Yes CN's II-XII intact bilaterally Motor exam (neuro): 5/5 motor strength present throughout Sensory Exam: No Sensory deficit (Neuro) Extrem General: Yes normal to inspection Psych Appearance: grossly normal Course Reevaluation(s) Reevaluation #1: patient with baseline renal insufficiency and hyperglycemia, BP running low probably from his weight loss and needs slight medication adjustment. Will dc home for follow up Time: 15:07 Medical Decision Making Lab Data Result diagrams: 05/07/22 13:11 05/07/22 13:11 Labs: Lab Results 05/07/22 05/07/22 05/07/22 Range/Units 13:03 13:03 13:03 WBC (4.8-10.8) X10*3/uL RBC (4.60-5.80) X10*6/uL Hgb (14.0-18.0) g/dl Hct (42.0-52.0) % MCV (80.0-98.0) fL MCH (27.0-33.0) pg MCHC (31.0-36.0) g/dl RDW (11.0-16.0) % Plt Count (160-400) X10*3/uL MPV (9.4-12.4) fL Immature Gran % (Auto) (0.0-0.4) % Neut % (Auto) (45-73) % Lymph % (Auto) (20-40) % Stevens % (Auto) (2-11) % Eos % (Auto) (0-4) % Baso % (Auto) (0-2) % Lymph # (Auto) (1.2-4.9) X10*3/uL Stevens # (Auto) (0.1-1.2) X10*3/uL Eos # (Auto) (0.0-0.4) X10*3/uL Baso # (Auto) (0.0-0.2) X10*3/uL Abs Immat Gran (auto) (0.00-0.03) X10*3/uL Absolute Neuts (auto) (2.0-8.3) x10*3/uL Absolute Nucleated RBC (0.0-0.012) X10*3/uL Nucleated RBC % (auto) (0.0-0.2) /100WBC Sodium (135-145) mmol/L Potassium (3.3-5.1) mmol/L Chloride (96-108) mmol/L Carbon Dioxide (22-29) mmol/L Anion Gap (12-20) BUN (9-16) mg/dL Creatinine (0.5-1.4) mg/dL Estim Creat Clear Calc Estimated GFR Random Glucose (60-115) mg/dL Calcium (8.4-10.2) mg/dL Troponin I High Sens (<3.5-35.0) ng/L Urine Color YELLOW Urine Appearance CLEAR Urine pH 6.0 (5.0-8.0) Ur Specific Goodman 1.010 (1.005-1.025) Urine Protein NEG (NEG-TRACE) MG/DL Urine Glucose (UA) >=1000 H (NEG) MG/DL Urine Ketones NEG (NEG) MG/DL Urine Blood NEG (NEG) Urine Nitrite NEG (NEG) Ur Leukocyte Esterase NEG (NEG) Urine RBC 0 (0) /HPF Urine WBC 0 (0-4) /HPF Ur Squamous Epith Cells NONE /LPF Urine Bacteria NONE /LPF Urine Mucus 3+ /LPF COVID-19 (CHARLES) Negative (Negative) COVID-19 Clin Com See Note Influenza Type A (NURY) Negative (Negative) Influenza Type B (NURY) Negative (Negative) Influenza A & B Note See Note 05/07/22 05/07/22 05/07/22 Range/Units 13:11 13:11 13:11 WBC 6.1 (4.8-10.8) X10*3/uL RBC 4.92 (4.60-5.80) X10*6/uL Hgb 14.6 (14.0-18.0) g/dl Hct 42.4 (42.0-52.0) % MCV 86.2 (80.0-98.0) fL MCH 29.7 (27.0-33.0) pg MCHC 34.4 (31.0-36.0) g/dl RDW 13.3 (11.0-16.0) % Plt Count 198 (160-400) X10*3/uL MPV 9.7 (9.4-12.4) fL Immature Gran % (Auto) 0.3 (0.0-0.4) % Neut % (Auto) 60.3 (45-73) % Lymph % (Auto) 27.4 (20-40) % Stevens % (Auto) 9.2 (2-11) % Eos % (Auto) 2.3 (0-4) % Baso % (Auto) 0.5 (0-2) % Lymph # (Auto) 1.7 (1.2-4.9) X10*3/uL Stevens # (Auto) 0.6 (0.1-1.2) X10*3/uL Eos # (Auto) 0.1 (0.0-0.4) X10*3/uL Baso # (Auto) 0.0 (0.0-0.2) X10*3/uL Abs Immat Gran (auto) 0.02 (0.00-0.03) X10*3/uL Absolute Neuts (auto) 3.7 (2.0-8.3) x10*3/uL Absolute Nucleated RBC 0.000 (0.0-0.012) X10*3/uL Nucleated RBC % (auto) 0.0 (0.0-0.2) /100WBC Sodium 137 (135-145) mmol/L Potassium 4.3 (3.3-5.1) mmol/L Chloride 102 (96-108) mmol/L Carbon Dioxide 22 (22-29) mmol/L Anion Gap 17 (12-20) BUN 23 H (9-16) mg/dL Creatinine 1.85 H (0.5-1.4) mg/dL Estim Creat Clear Calc 52.2 Estimated GFR 39 Random Glucose 202 H D (60-115) mg/dL Calcium 9.7 D (8.4-10.2) mg/dL Troponin I High Sens 5.3 (<3.5-35.0) ng/L Urine Color Urine Appearance Urine pH (5.0-8.0) Ur Specific Goodman (1.005-1.025) Urine Protein (NEG-TRACE) MG/DL Urine Glucose (UA) (NEG) MG/DL Urine Ketones (NEG) MG/DL Urine Blood (NEG) Urine Nitrite (NEG) Ur Leukocyte Esterase (NEG) Urine RBC (0) /HPF Urine WBC (0-4) /HPF Ur Squamous Epith Cells /LPF Urine Bacteria /LPF Urine Mucus /LPF COVID-19 (CHARLES) (Negative) COVID-19 Clin Com Influenza Type A (NURY) (Negative) Influenza Type B (NURY) (Negative) Influenza A & B Note ECG Data Attestation: I personally reviewed and interpreted this ECG as follows: Interpretation: dual paced no notable ischemia Discharge Plan Discharge Clinical Impression: Drug side effects, Blood pressure lower than prior measurement Patient Disposition: Home, Self-Care Instructions: Hypotension (ED) Prescriptions: No Action Trulicity 0.75 mg/0.5 mL pen injector 0.75 mg subcut QWEEK Qty: 2 6RF carvedilol 25 mg tablet See Rx Instructions PO BID Qty: 120 3RF Rx Instructions: 25mg 2 tablets PO 2 times a day; metformin 500 mg tablet 500 mg PO BID Qty: 60 6RF spironolactone 25 mg tablet 25 mg PO QAM Qty: 90 2RF Entresto 97-103 mg tablet 1 tab PO BID Qty: 60 5RF Corlanor 7.5 mg tablet 7.5 mg PO BID Qty: 60 5RF furosemide 80 mg tablet 80 mg PO QAM Qty: 90 1RF digoxin 250 mcg (0.25 mg) tablet 250 mcg PO QAM Qty: 90 1RF Jardiance 25 mg tablet 25 mg PO QAM Qty: 30 6RF (DME) FreeStyle Lite Strips Strip See Rx Instructions .ROUTE .MEDSUPPLY Qty: 150 11RF Rx Instructions: As directed four times a day albuterol sulfate 90 mcg/actuation aerosol powdr breath activated 2 inh inhalation Q4-6H PRN (Reason: shortness of breath or wheezing) Qty: 1 0RF albuterol sulfate 2.5 mg/0.5 mL solution for nebulization 5 mg inhalation Q6H PRN (Reason: shortness of breath or wheezing) Qty: 30 0RF diphenhydramine HCl 50 mg capsule 50 mg PO TID PRN (Reason: itching) Qty: 20 0RF methocarbamol 750 mg tablet 750 mg PO TID PRN (Reason: muscle spasm) Qty: 30 0RF atorvastatin 20 mg tablet 20 mg PO DAILY cholecalciferol (vitamin D3) 25 mcg (1,000 unit) tablet 25 mcg PO QAM trazodone 150 mg tablet 150 mg PO DAILY sertraline 100 mg tablet 100 mg PO DAILY Lantus U-100 Insulin 100 unit/mL solution 40 unit subcut BEDTIME (DME) lancets [TRUEplus Lancets] 33 gauge misc See Rx Instructions .ROUTE .MEDSUPPLY Qty: 200 11RF Rx Instructions: Four times a day terbinafine HCl 1 % cream 1 appl topical BID Qty: 15 1RF Rx Instructions: Use for 10 days loratadine 10 mg tablet 10 mg PO DAILY mirtazapine 45 mg tablet 45 mg PO BEDTIME hydroxyzine pamoate 50 mg capsule 50 mg PO DAILY PRN (Reason: Anxiety) aspirin 81 mg tablet,delayed release (DR/EC) 81 mg PO QPM omeprazole 40 mg capsule,delayed release(DR/EC) 40 mg PO DAILY (DME) pen needle, diabetic [Pentips] 32 gauge x 5/32 needle See Rx Instructions .ROUTE TID Qty: 50 Rx Instructions: As directed fenofibrate micronized 30 mg capsule 30 mg PO DAILY Qty: 30 11RF insulin aspart U-100 100 unit/mL (3 mL) insulin pen 12 - 20 unit subcut TID Qty: 15 6RF (DME) FreeStyle Garrick 2 Hobbs Misc See Rx Instructions .ROUTE .MEDSUPPLY Qty: 1 0RF Rx Instructions: As directed (DME) FreeStyle Garrick 2 Sensor Kit See Rx Instructions .ROUTE .MEDSUPPLY Qty: 2 11RF Rx Instructions: As directed every 2 weeks Referrals: Tor Villela MD [Primary Care Provider] - 3 days
[2022-05-07 13:40] LABS: Mucus Urine 3+ /LPF; RBC Urine 0 /HPF (0); WBC Urine 0 /HPF (0-4)
[2022-05-07 13:43] LABS: Influenza A Negative (Negative); Influenza B2 Negative (Negative)
[2022-05-07 13:44] LABS: COVID-19 Test Negative (Negative); IDNOW Serial# 16C4AD1C
[2022-05-07 13:47] LABS: Troponin-I High Sensitivity 5.3 ng/L (<3.5-35.0)
[2022-05-07 13:58] LABS: Anion Gap 17 (12-20); Blood Urea Nitrogen 23 mg/dL (9-16); Calcium 9.7 mg/dL (8.4-10.2); Carbon Dioxide 22 mmol/L (22-29); Chloride 102 mmol/L (96-108); Creatinine Clr Calc Pharmacy 52.2; Estimated Glomerular Filt Rate 39; Glucose Random 202 mg/dL (60-115); Potassium 4.3 mmol/L (3.3-5.1); Sodium 137 mmol/L (135-145)
[2022-05-07 14:48] VITALS: BP 105/53; PULSE 60; RESP 12; TEMP 36.4; O2SAT 96
[2022-05-07] MEDS: Acetaminophen 325 MG TABLET 975 MG PO (14:56)
[2022-05-07 15:07] LABS: Digoxin 0.7 ng/mL (0.8-2.0)
== END 2022-05-07 15:32 | disposition home or self-care (01) ==
PROVIDERS: Emergency Provider Emergency Medicine; PCP Internal Medicine
DX: R42 Dizziness and giddiness (principal); F17.210 Nicotine dependence, cigarettes, uncomplicated; Z71.6 Tobacco abuse counseling; Z20.822 Contact with and (suspected) exposure to COVID-19; Z79.899 Other long term (current) drug therapy
CPT/HCPCS: 36415; 71046; 80048; 80162; 81001; 84484; 85025; 87502; 87635; 93005; 99283; 99284

== ENCOUNTER 2022-05-16 08:02 | Emergency (ER) | payer OTHER, MEDICAID, SELFPAY ==
[2022-05-16 08:19] VITALS: BP 140/71; PULSE 83; RESP 18; TEMP 36.7; O2SAT 98; BMI 32.5
--- NOTE | 2022-05-16 09:46 | ED_ITS ---
HPI - Dental/Oral General Chief complaint: Dental/Oral Stated complaint: right side facial swelling Time Seen by Provider: 05/16/22 09:31 Source: patient and family ( at bedside) Mode of arrival: ambulatory Limitations: language barrier ( Niuean-speaking) History of Present Illness HPI Narrative: 51-year-old male with poor dentition presenting to the ED with complaints of right upper dental pain/ molar pain with right upper facial swelling for the past week worse today. Reports that he went to his dentist yesterday and they prescribed him Augmentin 500 mg t.i.d. that he is taking as prescribed reports he took approximately 4 doses along with his prescribed 800 mg ibuprofen although no symptomatic relief. He reports he took ibuprofen at 04:00. They reported to him that they did not have any x-rays or CT scans therefore they did not perform any imaging. Instructed him to return if any new or worsening symptoms although patient decided to come here. He denies any fevers, trouble swallowing or breathing, drooling, change in voice or any other symptoms complaints or concerns at this time. MD Complaint: tooth pain Teeth map: 1. Onset (ago): week(s) (1) Duration: worsening Severity: severe Severity scale (1-10): >10 Relieving factors: nothing Exacerbating factors: chewing and other ( or palpation) Context: history of dental caries and poor dental care Associated symptoms: gum swelling and other ( and right upper facial swelling) Treatment prior to arrival: other ( has been taking 100 mg ibuprofen last took at 04:00 this morning, taking 500 mg of Augmentin that he started yesterday 3 ti mes a day has taken 4 doses total.) Related Data Home Medications Medication Instructions Recorded Confirmed atorvastatin 20 mg tablet 20 mg PO DAILY 08/16/20 01/31/22 cholecalciferol (vitamin D3) 25 25 mcg PO QAM 08/16/20 01/31/22 mcg (1,000 unit) tablet trazodone 150 mg tablet 150 mg PO DAILY 08/16/20 01/31/22 insulin glargine 100 unit/mL 40 unit subcut BEDTIME 03/13/21 01/31/22 subcutaneous solution sertraline 100 mg tablet 100 mg PO DAILY 03/13/21 01/31/22 hydroxyzine pamoate 50 mg capsule 50 mg PO DAILY PRN Anxiety 06/26/21 01/31/22 loratadine 10 mg tablet 10 mg PO DAILY 06/26/21 01/31/22 mirtazapine 45 mg tablet 45 mg PO BEDTIME 06/26/21 01/31/22 aspirin 81 mg tablet,delayed 81 mg PO QPM 11/01/21 01/31/22 release omeprazole 40 mg capsule,delayed 40 mg PO DAILY 11/01/21 01/31/22 release pen needle, diabetic 32 gauge x #50 ea 11/01/21 01/31/2232 (Pentips) Previous Rx's Medication Instructions Recorded albuterol sulfate 2.5 mg/0.5 mL 5 mg inhalation Q6H PRN shortness 08/01/20 solution for nebulization of breath or wheezing #30 ea albuterol sulfate 90 mcg/actuation 2 inh inhalation Q4-6H PRN 08/01/20 breath activated powder inhaler shortness of breath or wheezing #1 ea lancets 33 gauge (TRUEplus Lancets) #200 ea 03/13/21 terbinafine HCl 1 % topical cream 1 appl topical BID #15 grams 03/13/21 diphenhydramine HCl 50 mg capsule 50 mg PO TID PRN itching #20 caps 09/06/21 methocarbamol 750 mg tablet 750 mg PO TID PRN muscle spasm #30 09/06/21 tabs dulaglutide 0.75 mg/0.5 mL 0.75 mg (0.5 mL) subcut QWEEK #2 mL 12/28/21 subcutaneous [facility] fenofibrate micronized 30 mg 30 mg PO DAILY #30 caps 01/31/22 capsule flash glucose scanning reader #1 ea 01/31/22 (FreeStyle Garrick 2 [place]) flash glucose sensor (FreeStyle #2 ea 01/31/22 Garrick 2 Sensor kit) insulin aspart U-100 100 unit/mL 12 - 20 unit (0.12 - 0.2 mL) 01/31/22 (3 mL) subcutaneous pen subcut TID #15 mL carvedilol 25 mg tablet See Rx Instructions PO BID #120 02/04/22 tabs metformin 500 mg tablet 500 mg PO BID #60 tabs 02/05/22 spironolactone 25 mg tablet 25 mg PO QAM #90 tabs 02/08/22 digoxin 250 mcg (0.25 mg) tablet 250 mcg PO QAM #90 tabs 03/06/22 furosemide 80 mg tablet 80 mg PO QAM #90 tabs 03/06/22 ivabradine 7.5 mg tablet (Corlanor) 7.5 mg PO BID #60 tabs 03/06/22 sacubitril 97 mg-valsartan 103 mg 1 tab PO BID #60 tabs 03/06/22 tablet (Entresto) empagliflozin 25 mg tablet 25 mg PO QAM #30 tabs 04/30/22 (Jardiance) blood sugar diagnostic (FreeStyle #150 ea 05/02/22 Lite Strips) acetaminophen 500 mg tablet 1,000 mg PO QID PRN fever or pain 05/16/22 (Tylenol Extra Strength) #14 tabs oxycodone 5 mg tablet 5 mg PO Q6H PRN pain #15 tabs 05/16/22 Allergies Allergy/AdvReac Type Severity Reaction Status Date / Time No Known Allergies Allergy Verified 01/31/22 10:16 [No Known Allergies*] Review of Systems Review of Systems: Constitutional : No Fever, No Chills, No changes in PO intake, No difficulty speaking, no recent dental procedure, no heat or cold intolerance while eating, no recent face trauma, ENT/Mouth : + Dental pain, No Sore throat, No Jaw pain, No throat swelling, No swallowing difficulty, no change in voice, + facial swelling, no drooling, no trismus, no bleeding, no lacerations, no tongue swelling, + gum swelling, Eyes: No Eye Pain, No periorbital Swelling Cardiovascular : No Chest Pain, No SOB Respiratory : No Cough, No Sputum, No Wheezing, No Smoke Exposure, No Dyspnea Gastrointestinal : No Nausea, No Vomiting, No Diarrhea Genitourinary : No Dysuria Musculoskeletal : No Myalgias Skin : No rash, no facial swelling or redness, Neuro : No Weakness, No Numbness, No Headache Yes all other systems are reviewed and are negative [facility] Past Medical History Attestation statement: The following information was validated with the patient. Source: old records reviewed, obtained from family and nursing notes reviewed Medical History Asthma Diabetes GERD (gastroesophageal reflux disease) Heart failure with reduced ejection fraction High cholesterol HLD (hyperlipidemia) HTN (hypertension) Implantable cardioverter-defibrillator lead failure Nonischemic cardiomyopathy Obesity due to excess calories NANO (obstructive sleep apnea) Pacemaker Type 2 diabetes mellitus with chronic kidney disease Surgical History History of circumcision History of permanent cardiac pacemaker placement (~2008) History of tonsillectomy Hx of cardiac cath Hx of transesophageal echocardiography (DAWN) for monitoring Family History Family History Father HTN (hypertension) Diabetes CVD (cardiovascular disease) Hypercholesterolemia Mother Hypercholesterolemia HTN (hypertension) Diabetes Social History Social History Household Members: Significant Other Household Members Other:: SO:Thu Alcohol intake: current Alcohol intake frequency: holidays/special occasions only Patient Tobacco Use Status: Current someday Tobacco user Tobacco use type: Cigarette Advance Directives: No Advance Directives Information Provided: Yes Physical Exam Vital Signs: Vital Signs: Last Vital Signs Temp 98.0 F 05/16/22 08:19 Pulse 83 05/16/22 08:19 Resp 18 05/16/22 08:19 BP 140/71 H 05/16/22 08:19 Pulse Ox 98 05/16/22 08:19 O2 Del Method 05/16/22 08:19 BMI result Body Mass Index 32.5 vital signs have been reviewed as normal and appeared to be correct. Blood pressure 140/71. Heart rate normal. Respiration rate normal. Temperature norm al. Oxygen saturation normal. Appearance: Alert. Oriented X3. No acute dis tress. Head: Normal external exam. Normocephalic. Atraumatic. Eyes: PERRLA. EOMI. Conjunctiva and sclera normal. Eyelids normal. ENT: EAC normal. TM's Normal. Pharynx normal. Uvula midline. Moist mucous membranes. No trismus noted. No drooling noted. No muffled voice noted. Dentition: Patient with poor dentition throughout with multiple old fractured teeth with multiple dental caries. To the right 3rd molar upper patient does have a dental/gingival abscess. No additional abscesses. The rest of the gingiva is within normal limits. No fluctuance. Not consistent with peritonsillar abscess. No salivary duct obstruction noted. Neck: Normal inspection. Neck supple. FROM. No adenopathy. Thyroid Normal. No meningeal signs. No neck mass noted. Trachea midline. CVS: Normal heart rate and rhythm. Heart sound normal. No murmurs noted. Pulses normal throughout. Respiratory: No respiratory distress. Painless inspiration. Breath sounds normal. No wheezes/rales/rhonchi noted. Chest nontender. No accessory muscle usage noted or decreased air movement noted. Back: Full range of motion noted. Skin: Skin warm and dry. Normal skin color. Normal skin turgor. No rashes/lesions/lacerations noted. Extremities:Extremities exhibit normal range of motion. Extremities nontender. Neuro: Oriented X 3. No motor deficit. No sensory deficit. Reflexes normal. Course Course Course Narrative: 51-year-old male with poor dentition presenting to the ED with complaints of right upper dental pain/ molar pain with right upper facial swelling for the past week worse today. Reports that he went to his dentist yesterday and they prescribed him Augmentin 500 mg t.i.d. that he is taking as prescribed reports he took approximately 4 doses along with his prescribed 800 mg ibuprofen a lthough no symptomatic relief. He reports he took ibuprofen at 04:00. They reported to him that they did not have any x-rays or CT scans therefore they did not perform any imaging. Instructed him to return if any new or worsening symptoms although patient decided to come here. He denies any fevers, trouble swallowing or breathing, drooling, change in voice or any other symptoms complaints or concerns at this time. patient now status post dental /gingival abscess I&D with needle aspiration and 11 and scalp 0. Moderate amount of purulent drainage of blood excreted. Patient tolerated procedure well. No complications. Not consistent with peritonsillar/ pharyngeal abscess. Patient tolerating secretions well. No complications. No trismus/ drooling. Therefore at this time I explained to the patient to continue taking his previously prescribed antibiotics as previously prescribed will also prescribe Tylenol and oxycodone so he can take with the Motrin and to follow up with his oral surgeon and to return if any new or worsening symptoms. Patient understands agrees with this plan. [facility] - Dental/Oral Medical Records Attestation: I reviewed the patient's medical records. Procedures Abscess I/D Site: other ( Dental) Side (if applicable): right Technique: needle aspiration and incised with blade Amount of fluid expressed (mL): 5 Sent for culture/gram staining?: No Irrigation: Yes Packing used?: none Complications: bleeding ( only mild bleeding no complications) Discharge Plan Discharge Clinical Impression: Dental caries, Gingival abscess, Dental abscess Patient Disposition: Home, Self-Care Instructions: Dental Abscess (ED) Additional Instructions: continue taking your previously prescribed antibiotics as previously prescribed. You can take Motrin / Tylenol and oxycodone all at the same time. Return if any new or worsening symptoms that she you develop any difficulty swallowing or breathing or any worsening swelling or worsening symptoms or fevers. Follow-up with your dentist as scheduled. contin?e tomando los antibi?ticos recetados anteriormente marisa se los recet? anteriormente. Puede esperanza Motrin / Tylenol y oxicodona al mismo tiempo. Regrese si hay alg?n s?ntoma nuevo o que empeore que desarrolle alguna dificultad para tragar o respirar o cualquier empeoramiento de la hinchaz?n o empeoramiento de los s?ntomas o fiebre. Chiki un seguimiento con roldan dentista seg?n lo programado. Prescriptions: New oxycodone 5 mg tablet 5 mg PO Q6H PRN (Reason: pain) Qty: 15 0RF Rx Instructions: Partial Fill upon patient request. acetaminophen [Tylenol Extra Strength] 500 mg tablet 1,000 mg PO QID PRN (Reason: fever or pain) Qty: 14 0RF No Action Trulicity 0.75 mg/0.5 mL pen injector 0.75 mg subcut QWEEK Qty: 2 6RF carvedilol 25 mg tablet See Rx Instructions PO BID Qty: 120 3RF Rx Instructions: 25mg 2 tablets PO 2 times a day; metformin 500 mg tablet 500 mg PO BID Qty: 60 6RF spironolactone 25 mg tablet 25 mg PO QAM Qty: 90 2RF Entresto 97-103 mg tablet 1 tab PO BID Qty: 60 5RF Corlanor 7.5 mg tablet 7.5 mg PO BID Qty: 60 5RF furosemide 80 mg tablet 80 mg PO QAM Qty: 90 1RF digoxin 250 mcg (0.25 mg) tablet 250 mcg PO QAM Qty: 90 1RF Jardiance 25 mg tablet 25 mg PO QAM Qty: 30 6RF (DME) FreeStyle Lite Strips Strip See Rx Instructions .ROUTE .MEDSUPPLY Qty: 150 11RF Rx Instructions: As directed four times a day albuterol sulfate 90 mcg/actuation aerosol powdr breath activated 2 inh inhalation Q4-6H PRN (Reason: shortness of breath or wheezing) Qty: 1 0RF albuterol sulfate 2.5 mg/0.5 mL solution for nebulization 5 mg inhalation Q6H PRN (Reason: shortness of breath or wheezing) Qty: 30 0RF diphenhydramine HCl 50 mg capsule 50 mg PO TID PRN (Reason: itching) Qty: 20 0RF methocarbamol 750 mg tablet 750 mg PO TID PRN (Reason: muscle spasm) Qty: 30 0RF atorvastatin 20 mg tablet 20 mg PO DAILY cholecalciferol (vitamin D3) 25 mcg (1,000 unit) tablet 25 mcg PO QAM trazodone 150 mg tablet 150 mg PO DAILY sertraline 100 mg tablet 100 mg PO DAILY Lantus U-100 Insulin 100 unit/mL solution 40 unit subcut BEDTIME (DME) lancets [TRUEplus Lancets] 33 gauge misc See Rx Instructions .ROUTE .MEDSUPPLY Qty: 200 11RF Rx Instructions: Four times a day terbinafine HCl 1 % cream 1 appl topical BID Qty: 15 1RF Rx Instructions: Use for 10 days loratadine 10 mg tablet 10 mg PO DAILY mirtazapine 45 mg tablet 45 mg PO BEDTIME hydroxyzine pamoate 50 mg capsule 50 mg PO DAILY PRN (Reason: Anxiety) aspirin 81 mg tablet,delayed release (DR/EC) 81 mg PO QPM omeprazole 40 mg capsule,delayed release(DR/EC) 40 mg PO DAILY (DME) pen needle, diabetic [Pentips] 32 gauge x 5/32 needle See Rx Instructions .ROUTE TID Qty: 50 Rx Instructions: As directed fenofibrate micronized 30 mg capsule 30 mg PO DAILY Qty: 30 11RF insulin aspart U-100 100 unit/mL (3 mL) insulin pen 12 - 20 unit subcut TID Qty: 15 6RF (DME) FreeStyle Garrick 2 [place] Misc See Rx Instructions .ROUTE .MEDSUPPLY Qty: 1 0RF Rx Instructions: As directed (DME) FreeStyle Garrick 2 Sensor Kit See Rx Instructions .ROUTE .MEDSUPPLY Qty: 2 11RF Rx Instructions: As directed every 2 weeks Referrals: Tor Villela MD [Primary Care Provider] - 1 week Print Language: Niuean
[2022-05-16] MEDS: oxyCODONE HCl Immed Release 5 MG TABLET PO (10:40)
== END 2022-05-16 10:43 | disposition home or self-care (01) ==
PROVIDERS: Emergency Provider Emergency Medicine Emergency Medical Services; PCP Internal Medicine
DX: K08.89 Other specified disorders of teeth and supporting structures (principal); K02.9 Dental caries, unspecified; K04.7 Periapical abscess without sinus; K05.312 Chronic periodontitis, localized, moderate; E11.22 Type 2 diabetes mellitus with diabetic chronic kidney disease; I13.0 Hypertensive heart and chronic kidney disease with heart failure and stage 1 through stage 4 chronic kidney disease, or unspecified chronic kidney disease; N18.9 Chronic kidney disease, unspecified; I50.9 Heart failure, unspecified; E78.5 Hyperlipidemia, unspecified; E66.9 Obesity, unspecified; Z68.32 Body mass index [BMI] 32.0-32.9, adult; F17.210 Nicotine dependence, cigarettes, uncomplicated; Z95.0 Presence of cardiac pacemaker; Z79.02 Long term (current) use of antithrombotics/antiplatelets; Z79.4 Long term (current) use of insulin; Z79.82 Long term (current) use of aspirin; Z79.899 Other long term (current) drug therapy
CPT/HCPCS: 41800; 99283; 99284

== ENCOUNTER → 2022-06-25 13:58 | Outpatient (REF) | payer OTHER, SELFPAY ==
--- NOTE | 2022-06-25 14:01 | CA_ITS ---
Transthoracic Echocardiogram Patient (Last, First, Middle): Ian Godinez, Gender: Male Date of : 1970 Age: 51 Procedure Date: 06/25/2022 Procedure Type: Transthoracic Echocardiogram Location: OP Height: 172.72 cm Weight: 94.35 kg BSA: 2.08 m2 Heart Rate: bpm BP: 115 / 65 mmHg Loss Prevention Coordinator: FRANCES Referring MD: Jose Nielson MD Dog Day Care Attendant: Jose Nielson MD Symptoms: I50.20 - Unspecified systolic (congestive) heart failure Study Quality: Fair/Contrast ECG Rhythm: Ventriculary paced rhythm Conclusions: - 1. [id number] LV systolic dysfunction with LVEF of 40 45% with impaired relaxation filling pattern 2. Normal cardiac valvular Doppler 3. Normal RV systolic pressure 4. No gross pericardial effusion Findings Procedure Information Contrast agent, definity, is being given per protocol without apparent complications. Left Ventricle Normal left ventricular cavity size. There is normal left ventricular wall thickness. The left ventricular systolic function is mild to moderately decreased. The visually estimated ejection fraction is between 40-45%. Spectral Doppler is indicative of an impaired relaxation filling pattern. E/E prime ratio is between 8 and 15 consistent with indeterminate filling pressures. Right Ventricle Normal right ventricular cavity size and systolic function. There is an ICD wire seen in the right ventricle. Atria The left atrium is normal in size. There is no evidence of interatrial shunt. The right atrium is normal in size. A pacemaker wire is identified in the right atrium. Aortic Valve Normal aortic valve structure and function. There is no aortic valve stenosis. There is no aortic valve regurgitation. Mitral Valve There is mild anterior and posterior mitral leaflet thickening. There is trace mitral valve regurgitation. There is no mitral valve stenosis. Pulmonic Valve The pulmonic valve was not well visualized. Tricuspid Valve Likely normal tricuspid valve structure and function. There is trace tricuspid valve regurgitation. The right ventricular systolic pressure is normal. The right ventricular systolic pressure is 31 mmHg. Normal right atrial pressure. There is no evidence of pulmonary hypertension. Great Vessels All visible segments of the aorta are normal in size. The pulmonary artery was not well visualized. Venous The inferior vena cava is normal in size and collapses greater than 50% with inspiration. Pericardium/Pleural There is no evidence of pericardial effusion. Prior Study Comparison No significant change compared to prior study dated: 05/17/2021. Measurements 2D Linear Measurements IVSd: 1.08 0.6-0.9/0.6-1.0 cm LVIDd: 5.41 3.9-5.3/4.2-5.9 cm LVIDd Index: 2.60 2.4-3.2/2.2-3.1 cm/m2 LVIDs: 4.30 2.0-3.6 cm LVPWd: 1.11 0.7-1.1 cm LA Diam: 3.50 2.7-3.8/3.0-4.0 cm LAIDs Index: 1.68 1.5-2.3 cm/m2 LV Mass: 291.86 67-162/88-224 g LV Mass Index: 140.32 43-95/49-115 g/m2 LVOT Diam: 2.20 3.0+(-)1.3 cm 2D Systolic Function EF 4C: 42.00 >55% EF 2C: 48.90 >55% EF BiP: 45.00 >55% Mitral Valve MV Pk E: 0.77 MV PK A: 1.07 MV Decel Time: 215.00 E/A: 0.70 E'Lateral: 5.87 E'Medial: 6.64 E/E' Med: 11.60 E/E' Lat: 13.10 PHT: 63.00 MVA PHT: 3.49 Decel [place]: 3.58 LVOT LVOT Diam: 2.20 LVOT Area: 3.80 Diastolic Function MV Pk E: 0.77 MV Pk A: 1.07 E/A: 0.70 E'Medial: 6.64 E/E' Med: 11.60 E' Laterial: 5.87 E/E' Lat: 13.10 Right Ventricle TAPSE (mm): 26.30 TVS' [place]: 15.10 Tricuspid Valve TR Pk [place]yn: 2.65 TR Pk Grad: 28.00 RA Press: 3.00 RVSP: 31.00 Great Vessels Aorta Sinus of Valsalva: 3.26 2.0-3.[address] [place]: 2.68 1.7-3.4 cm Ao Asc: 3.30 2.1-3.4 cm Updated in Other Vendor System with Status of Final Jose Nielson MD electronically signed on 06/26/2022 4:44:06 PM with status of Final
== END ==
LOC: HO.CARD 13:58
PROVIDERS: PCP Internal Medicine; Visit Provider Internal Medicine Cardiovascular Disease
DX: I50.20 Unspecified systolic (congestive) heart failure (principal)
CPT/HCPCS: 93306; Q9957

== ENCOUNTER → 2022-07-15 12:27 | Outpatient (BNVA) | payer OTHER, SELFPAY | PROVIDERS: PCP Internal Medicine; Referring Provider Internal Medicine; Visit Provider Internal Medicine Cardiovascular Disease | DX: T82.110A Breakdown (mechanical) of cardiac electrode, initial encounter (principal); I50.20 Unspecified systolic (congestive) heart failure; I48.20 Chronic atrial fibrillation, unspecified; Z45.02 Encounter for adjustment and management of automatic implantable cardiac defibrillator | CPT/HCPCS: 99212 ==

== ENCOUNTER 2022-07-17 11:20 | Emergency (ER) | payer OTHER, SELFPAY ==
--- NOTE | ~2022-07-17 | XR_ITS ---
EXAMINATION: XR CHEST CLINICAL INFORMATION: Dyspnea. COMPARISON: Chest radiograph dated from 05/07/2022. TECHNIQUE: Frontal view of the chest was obtained. FINDINGS: Left-sided pacer/AICD in similar positioning to prior. Stable cardiomediastinal silhouette. No focal airspace opacity, pleural effusion or pneumothorax. No acute osseous abnormalities. The included upper abdomen is within normal limits. XR/XR chest 1V IMPRESSION: No acute cardiopulmonary findings.
[2022-07-17 13:14] VITALS: BP 69/46; PULSE 62; RESP 18; TEMP 36.1; O2SAT 96; BMI 31.9
--- NOTE | 2022-07-17 13:37 | ECG_ITS ---
Test Reason : chest pain Blood Pressure : / mmHG Vent. Rate : 060 BPM Atrial Rate : 060 BPM P-R Int : 196 ms QRS Dur : 174 ms QT Int : 478 ms P-R-T Axes : 044 -42 084 degrees QTc Int : 478 ms AV dual-paced rhythm Biventricular pacemaker detected Abnormal ECG When compared with ECG of 07-MAY-2022 13:04, No significant change was found Referred By: Rianna Munson Electronically Signed By:JESSIE BELTRAN
[2022-07-17 13:38] VITALS: BP 114/59
--- NOTE | 2022-07-17 13:47 | ED_ITS ---
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 He is vaccinated for COVID x 3. He denies sick contacts, travel, recent food exposures or antibiotic use. MD complaint: chest pain Pertinent past history: other (cardiomyopathy) Onset (ago): day(s) (2) Onset: during rest Pain location: substernal, left chest and right chest Pain radiation: none Severity: mild Quality: tightness Relieving factors: nothing Exacerbating factors: exertion and other (coughing) Associated symptoms: nausea, dyspnea, cough and other (headaches, diarrhea) Treatment prior to arrival: none Related Data Home Medications Medication Instructions Recorded Confirmed atorvastatin 20 mg tablet 20 mg PO DAILY 08/16/20 07/15/22 cholecalciferol (vitamin D3) 25 25 mcg PO QAM 08/16/20 07/15/22 mcg (1,000 unit) tablet trazodone 150 mg tablet 150 mg PO DAILY 08/16/20 07/15/22 insulin glargine 100 unit/mL 40 unit subcut BEDTIME 03/13/21 07/15/22 subcutaneous solution sertraline 100 mg tablet 100 mg PO DAILY 03/13/21 07/15/22 hydroxyzine pamoate 50 mg capsule 50 mg PO DAILY PRN Anxiety 06/26/21 07/15/22 loratadine 10 mg tablet 10 mg PO DAILY 06/26/21 07/15/22 mirtazapine 45 mg tablet 45 mg PO BEDTIME 06/26/21 07/15/22 omeprazole 40 mg capsule,delayed 40 mg PO DAILY 11/01/21 07/15/22 release pen needle, diabetic 32 gauge x #50 ea 11/01/21 07/15/2232 (Pentips) Previous Rx's Medication Instructions Recorded albuterol sulfate 2.5 mg/0.5 mL 5 mg inhalation Q6H PRN shortness 08/01/20 solution for nebulization of breath or wheezing #30 ea albuterol sulfate 90 mcg/actuation 2 inh inhalation Q4-6H PRN 08/01/20 breath activated powder inhaler shortness of breath or wheezing #1 ea lancets 33 gauge (TRUEplus Lancets) #200 ea 03/13/21 terbinafine HCl 1 % topical cream 1 appl topical BID #15 grams 03/13/21 diphenhydramine HCl 50 mg capsule 50 mg PO TID PRN itching #20 caps 09/06/21 methocarbamol 750 mg tablet 750 mg PO TID PRN muscle spasm #30 09/06/21 tabs dulaglutide 0.75 mg/0.5 mL 0.75 mg (0.5 mL) subcut QWEEK #2 mL 12/28/21 subcutaneous pen injector (TrCSMG) fenofibrate micronized 30 mg 30 mg PO DAILY #30 caps 01/31/22 capsule flash glucose scanning reader #1 ea 01/31/22 (Group 47Style Garrick 2 [place]) flash glucose sensor (Group 47Style #2 ea 01/31/22 Garrick 2 Sensor kit) insulin aspart U-100 100 unit/mL 12 - 20 unit (0.12 - 0.2 mL) 01/31/22 (3 mL) subcutaneous pen subcut TID #15 mL metformin 500 mg tablet 500 mg PO BID #60 tabs 02/05/22 spironolactone 25 mg tablet 25 mg PO QAM #90 tabs 02/08/22 digoxin 250 mcg (0.25 mg) tablet 250 mcg PO QAM #90 tabs 03/06/22 furosemide 80 mg tablet 80 mg PO QAM #90 tabs 03/06/22 ivabradine 7.5 mg tablet (Corlanor) 7.5 mg PO BID #60 tabs 03/06/22 sacubitril 97 mg-valsartan 103 mg 1 tab PO BID #60 tabs 03/06/22 tablet (Entresto) empagliflozin 25 mg tablet 25 mg PO QAM #30 tabs 04/30/22 (Jardiance) blood sugar diagnostic (FreeStyle #150 ea 05/02/22 Lite Strips) acetaminophen 500 mg tablet 1,000 mg PO QID PRN fever or pain 05/16/22 (Tylenol Extra Strength) #14 tabs oxycodone 5 mg tablet 5 mg PO Q6H PRN pain #15 tabs 05/16/22 carvedilol 25 mg tablet See Rx Instructions PO BID #120 06/17/22 tabs Allergies Allergy/AdvReac Type Severity Reaction Status Date / Time No Known Allergies Allergy Verified 01/31/22 10:16 [No Known Allergies*] Review of Systems Review of Systems: Constitutional : No Fever, No Chills ENT/Mouth : No sore throat, No Rhinorrhea, No Swallowing Difficulty Eyes: No Eye Pain, No Swelling, No Redness Cardiovascular : pos Chest Pain, positive SOB, No Orthopnea, no Edema Respiratory : pos Cough, No Sputum, No Wheezing, positive dyspnea Gastrointestinal : pos Nausea, No Vomiting, pos Diarrhea, No abdominal Pain, No Hematochezia, No Melena Genitourinary : No Dysuria, No Urinary Frequency, No Hematuria Musculoskeletal : No joint pain, No Myalgias Skin : No Skin Lesions, No rash Neuro : No Weakness, No Numbness, No Dizziness, pos Headache Psych : No Anxiety/Panic, No Depression Heme/Lymph: No Bruising, No Lymphadenopathy Endocrine : No Polyuria, No Polydipsia All other systems reviewed and are negative [facility] Past Medical History Attestation statement: The following information was validated with the patient. Source: old records reviewed Medical History Asthma Diabetes GERD (gastroesophageal reflux disease) Heart failure with reduced ejection fraction High cholesterol HLD (hyperlipidemia) HTN (hypertension) Implantable cardioverter-defibrillator lead failure Nonischemic cardiomyopathy Obesity due to excess calories NANO (obstructive sleep apnea) Pacemaker Type 2 diabetes mellitus with chronic kidney disease Surgical History History of circumcision History of permanent cardiac pacemaker placement (~2008) History of tonsillectomy Hx of cardiac cath Hx of transesophageal echocardiography (DAWN) for monitoring Family History Family History Father HTN (hypertension) Diabetes CVD (cardiovascular disease) Hypercholesterolemia Mother Hypercholesterolemia HTN (hypertension) Diabetes Social History Social History Household Members: Significant Other Household Members Other:: SO:Thu Alcohol intake: current Alcohol intake frequency: a few times a week Patient Tobacco Use Status: Current someday Tobacco user Tobacco use type: Cigarette Use of substances other than those prescribed or required for medical reasons: No Advance Directives: No Advance Directives Information Provided: No Physical Exam Vital Signs: Vital Signs: Last Vital Signs Temp 98.2 F 07/17/22 15:59 Pulse 60 07/17/22 15:59 Resp 16 07/17/22 15:59 BP 110/59 L 07/17/22 15:59 Pulse Ox 98 07/17/22 15:59 O2 Del Method 07/17/22 15:59 BMI result Body Mass Index 31.9 Appearance: Alert. Oriented X3. No acute distress. Eyes: Pupils equal, round and reactive to light. ENT: Pharynx normal. Neck: Normal inspection. Neck supple. CVS: Normal heart rate and rhythm. Pulses normal. Respiratory: No respiratory distress. Breath sounds diminished throughout with scant wheezes Abdomen: Soft and non-tender. Skin: Skin warm and dry. Normal skin color. Extremities: No lower extremity edema. Neuro: Oriented X 3. No motor deficit. No sensory deficit. Course Course Course Narrative: INITIAL BP LIKELY IN ERROR - CHECKED ON ARRIVAL TO ROOM 114/59 NO INTERVENTIONS DONE, HE WAS TALKING WITHOUT ISSUE AND APPEARED WELL BNP and CXR negative, ddimer and troponin negative > 6 hours of symptoms repeat fluid bolus for dehydration ordered. patient is very stressed out about his PPM discussed no obvious lead fracture - neg troponin, CXR, bnp, ddimer he wants to know when EP is going to fix it and I discussed with him that I am not sure. COVID negative, 98% on RA, lungs CTAB the patient is also very anxious about when EP is going to change his ICD as no one has contacted him. repeat trop and lactic acid pending as well as call back from Cardiology with plan to discuss ICD follow up. signed out to Dr. Patterson plan for follow up cardiology saw CXR - no issues, he has to wait for EP to call him. MDM - Chest Pain MDM Narrative Medical decision making narrative: 52 yo male with hx of HTN, HLD, DM, nonischemic cardiomyopathy EF 40% Biventricular [employer] ICD with failed LV lead here with c/o chest tightness with wheezing - he will need CXR, bnp, neb treatment and COVID swab - troponin ordered as well. He has other symptoms such as diarrhea, headache, cough - could be COVID. Swab is ordered. He is not toxic, initial BP likely in error Lab Data Result diagrams: 07/17/22 14:18 07/17/22 14:18 Labs: Lab Results 07/17/22 07/17/22 07/17/22 Range/Units 14:18 14:18 14:18 WBC 7.1 (4.8-10.8) X10*3/uL RBC 5.03 (4.60-5.80) X10*6/uL Hgb 14.9 (14.0-18.0) g/dl Hct 42.0 (42.0-52.0) % MCV 83.5 (80.0-98.0) fL MCH 29.6 (27.0-33.0) pg MCHC 35.5 (31.0-36.0) g/dl RDW 12.6 (11.0-16.0) % Plt Count 208 (160-400) X10*3/uL MPV 9.9 (9.4-12.4) fL Immature Gran % (Auto) 0.3 (0.0-0.4) % Neut % (Auto) 59.0 (45-73) % Lymph % (Auto) 30.9 (20-40) % [place] % (Auto) 6.9 (2-11) % Eos % (Auto) 2.5 (0-4) % Baso % (Auto) 0.4 (0-2) % Lymph # (Auto) 2.2 (1.2-4.9) X10*3/uL [place] # (Auto) 0.5 (0.1-1.2) X10*3/uL Eos # (Auto) 0.2 (0.0-0.4) X10*3/uL Baso # (Auto) 0.0 (0.0-0.2) X10*3/uL Abs Immat Gran (auto) 0.02 (0.00-0.03) X10*3/uL Absolute Neuts (auto) 4.2 (2.0-8.3) x10*3/uL Absolute Nucleated RBC 0.000 (0.0-0.012) X10*3/uL Nucleated RBC % (auto) 0.0 (0.0-0.2) /100WBC PT (10.0-13.1) SEC INR (0.9-1.1) D-Dimer High Sensitivty NG/ML Sodium 137 (135-145) mmol/L Potassium 3.9 (3.3-5.1) mmol/L Chloride 98 (96-108) mmol/L Carbon Dioxide 26 (22-29) mmol/L Anion Gap 17 (12-20) BUN 32 H (9-16) mg/dL Creatinine 2.09 H (0.5-1.4) mg/dL Estim Creat Clear Calc 46.8 Estimated GFR 34 Random Glucose 254 H (60-115) mg/dL Lactic Acid (0.5-2.0) mmol/L Calcium 9.7 (8.4-10.2) mg/dL Magnesium 1.9 (1.6-2.6) mg/dL Total Bilirubin 0.5 (0.0-1.0) mg/dL Direct Bilirubin 0.2 (0.0-0.5) mg/dL AST 15 (5-37) U/L ALT 23 (0-40) U/L Alkaline Phosphatase 87 (39-117) U/L Troponin I High Sens (<3.5-35.0) ng/L C-Reactive Protein 0.34 (< or = 0.50) mg/dL B-Natriuretic Peptide < 10 (<100) pg/mL Total Protein 7.4 (6.5-8.0) g/dL Albumin 4.5 (3.5-5.0) g/dL Lipase 39 (8-78) U/L Urine Color Urine Appearance Urine pH (5.0-9.0) Ur Specific [place] (1.005-1.025) Urine Protein (Neg-Trace) mg/dL Urine Glucose (UA) (Negative) mg/dL Urine Ketones (Negative) mg/dL Urine Blood (Negative) Urine Nitrite (Negative) Ur Leukocyte Esterase (Negative) Urine RBC (0-2) /HPF Urine WBC (0-5) /HPF Ur Squamous Epith Cells (0-2) /HPF Urine Bacteria (None Seen) Hyaline Casts (0-2) /LPF COVID-19 (CHARLES) (Negative) COVID-19 Clin Com 07/17/22 07/17/2207/17/22 Range/Units 14:18 14:18 14:18 WBC (4.8-10.8) X10*3/uL RBC (4.60-5.80) X10*6/uL Hgb (14.0-18.0) g/dl Hct (42.0-52.0) % MCV (80.0-98.0) fL MCH (27.0-33.0) pg MCHC (31.0-36.0) g/dl RDW (11.0-16.0) % Plt Count (160-400) X10*3/uL MPV (9.4-12.4) fL Immature Gran % (Auto) (0.0-0.4) % Neut % (Auto) (45-73) % Lymph % (Auto) (20-40) % [place] % (Auto) (2-11) % Eos % (Auto) (0-4) % Baso % (Auto) (0-2) % Lymph # (Auto) (1.2-4.9) X10*3/uL [place] # (Auto) (0.1-1.2) X10*3/uL Eos # (Auto) (0.0-0.4) X10*3/uL Baso # (Auto) (0.0-0.2) X10*3/uL Abs Immat Gran (auto) (0.00-0.03) X10*3/uL Absolute Neuts (auto) (2.0-8.3) x10*3/uL Absolute Nucleated RBC (0.0-0.012) X10*3/uL Nucleated RBC % (auto) (0.0-0.2) /100WBC PT 10.7 (10.0-13.1) SEC INR 0.9 (0.9-1.1) D-Dimer High Sensitivty < 150 NG/ML Sodium (135-145) mmol/L Potassium (3.3-5.1) mmol/L Chloride (96-108) mmol/L Carbon Dioxide (22-29) mmol/L Anion Gap (12-20) BUN (9-16) mg/dL Creatinine (0.5-1.4) mg/dL Estim Creat Clear Calc Estimated GFR Random Glucose (60-115) mg/dL Lactic Acid 2.1 H* (0.5-2.0) mmol/L Calcium (8.4-10.2) mg/dL Magnesium (1.6-2.6) mg/dL Total Bilirubin (0.0-1.0) mg/dL Direct Bilirubin (0.0-0.5) mg/dL AST (5-37) U/L ALT (0-40) U/L Alkaline Phosphatase (39-117) U/L Troponin I High Sens 5.6 (<3.5-35.0) ng/L C-Reactive Protein (< or = 0.50) mg/dL B-Natriuretic Peptide (<100) pg/mL Total Protein (6.5-8.0) g/dL Albumin (3.5-5.0) g/dL Lipase (8-78) U/L Urine Color Urine Appearance Urine pH (5.0-9.0) Ur Specific [place] (1.005-1.025) Urine Protein (Neg-Trace) mg/dL Urine Glucose (UA) (Negative) mg/dL Urine Ketones (Negative) mg/dL Urine Blood (Negative) Urine Nitrite (Negative) Ur Leukocyte Esterase (Negative) Urine RBC (0-2) /HPF Urine WBC (0-5) /HPF Ur Squamous Epith Cells (0-2) /HPF Urine Bacteria (None Seen) Hyaline Casts (0-2) /LPF COVID-19 (CHARLES) (Negative) COVID-19 Clin Com 07/17/22 07/17/22 Range/Units 14:19 15:22 WBC (4.8-10.8) X10*3/uL RBC (4.60-5.80) X10*6/uL Hgb (14.0-18.0) g/dl Hct (42.0-52.0) % MCV (80.0-98.0) fL MCH (27.0-33.0) pg MCHC (31.0-36.0) g/dl RDW (11.0-16.0) % Plt Count (160-400) X10*3/uL MPV (9.4-12.4) fL Immature Gran % (Auto) (0.0-0.4) % Neut % (Auto) (45-73) % Lymph % (Auto) (20-40) % [place] % (Auto) (2-11) % Eos % (Auto) (0-4) % Baso % (Auto) (0-2) % Lymph # (Auto) (1.2-4.9) X10*3/uL [place] # (Auto) (0.1-1.2) X10*3/uL Eos # (Auto) (0.0-0.4) X10*3/uL Baso # (Auto) (0.0-0.2) X10*3/uL Abs Immat Gran (auto) (0.00-0.03) X10*3/uL Absolute Neuts (auto) (2.0-8.3) x10*3/uL Absolute Nucleated RBC (0.0-0.012) X10*3/uL Nucleated RBC % (auto) (0.0-0.2) /100WBC PT (10.0-13.1) SEC INR (0.9-1.1) D-Dimer High Sensitivty NG/ML Sodium (135-145) mmol/L Potassium (3.3-5.1) mmol/L Chloride (96-108) mmol/L Carbon Dioxide (22-29) mmol/L Anion Gap (12-20) BUN (9-16) mg/dL Creatinine (0.5-1.4) mg/dL Estim Creat Clear Calc Estimated GFR Random Glucose (60-115) mg/dL Lactic Acid (0.5-2.0) mmol/L Calcium (8.4-10.2) mg/dL Magnesium (1.6-2.6) mg/dL Total Bilirubin (0.0-1.0) mg/dL Direct Bilirubin (0.0-0.5) mg/dL AST (5-37) U/L ALT (0-40) U/L Alkaline Phosphatase (39-117) U/L Troponin I High Sens (<3.5-35.0) ng/L C-Reactive Protein (< or = 0.50) mg/dL B-Natriuretic Peptide (<100) pg/mL Total Protein (6.5-8.0) g/dL Albumin (3.5-5.0) g/dL Lipase (8-78) U/L Urine Color Yellow Urine Appearance Clear Urine pH 5.5 (5.0-9.0) Ur Specific [place] 1.020 (1.005-1.025) Urine Protein Negative (Neg-Trace) mg/dL Urine Glucose (UA) >=1000 H (Negative) mg/dL Urine Ketones Negative (Negative) mg/dL Urine Blood Negative (Negative) Urine Nitrite Negative (Negative) Ur Leukocyte Esterase Negative (Negative) Urine RBC 0-2 (0-2) /HPF Urine WBC 0-5 (0-5) /HPF Ur Squamous Epith Cells 0-2 (0-2) /HPF Urine Bacteria None Seen (None Seen) Hyaline Casts 0-2 (0-2) /LPF COVID-19 (CHARLES) Negative (Negative) COVID-19 Clin Com See Note ECG Data ECG #1: Attestation: I personally reviewed and interpreted this ECG as follows: ECG interpretation date: 07/17/22 ECG interpretation time: 14:00 Interpretation: Rate: 60 Rhythm: paced rhythm Okay: left Normal P waves. Normal PHILLY. wide complex ST T wave : no LYUDMILA qTC: normal prior studies: unchanged The study has been interpreted contemporaneously by me. . Discharge Plan Discharge Clinical Impression: Acute dehydration, Acute dyspnea Asthma Qualifiers: Asthma severity: mild Asthma persistence: persistent Asthma complication type: with acute exacerbation Qualified Code(s): J45.31 - Mild persistent asthma with (acute) exacerbation Patient Disposition: Still a Patient Prescriptions: No Action Trulicity 0.75 mg/0.5 mL pen injector 0.75 mg subcut QWEEK Qty: 2 6RF metformin 500 mg tablet 500 mg PO BID Qty: 60 6RF spironolactone 25 mg tablet 25 mg PO QAM Qty: 90 2RF Entresto 97-103 mg tablet 1 tab PO BID Qty: 60 5RF Corlanor 7.5 mg tablet 7.5 mg PO BID Qty: 60 5RF furosemide 80 mg tablet 80 mg PO QAM Qty: 90 1RF digoxin 250 mcg (0.25 mg) tablet 250 mcg PO QAM Qty: 90 1RF Jardiance 25 mg tablet 25 mg PO QAM Qty: 30 6RF (DME) FreeStyle Lite Strips Strip See Rx Instructions .ROUTE .MEDSUPPLY Qty: 150 11RF Rx Instructions: As directed four times a day carvedilol 25 mg tablet See Rx Instructions PO BID Qty: 120 3RF Rx Instructions: 25mg 2 tablets PO 2 times a day; albuterol sulfate 90 mcg/actuation aerosol powdr breath activated 2 inh inhalation Q4-6H PRN (Reason: shortness of breath or wheezing) Qty: 1 0RF albuterol sulfate 2.5 mg/0.5 mL solution for nebulization 5 mg inhalation Q6H PRN (Reason: shortness of breath or wheezing) Qty: 30 0RF oxycodone 5 mg tablet 5 mg PO Q6H PRN (Reason: pain) Qty: 15 0RF Rx Instructions: Partial Fill upon patient request. acetaminophen [Tylenol Extra Strength] 500 mg tablet 1,000 mg PO QID PRN (Reason: fever or pain) Qty: 14 0RF diphenhydramine HCl 50 mg capsule 50 mg PO TID PRN (Reason: itching) Qty: 20 0RF methocarbamol 750 mg tablet 750 mg PO TID PRN (Reason: muscle spasm) Qty: 30 0RF atorvastatin 20 mg tablet 20 mg PO DAILY cholecalciferol (vitamin D3) 25 mcg (1,000 unit) tablet 25 mcg PO QAM trazodone 150 mg tablet 150 mg PO DAILY sertraline 100 mg tablet 100 mg PO DAILY Lantus U-100 Insulin 100 unit/mL solution 40 unit subcut BEDTIME (DME) lancets [TRUEplus Lancets] 33 gauge misc See Rx Instructions .ROUTE .MEDSUPPLY Qty: 200 11RF Rx Instructions: Four times a day terbinafine HCl 1 % cream 1 appl topical BID Qty: 15 1RF Rx Instructions: Use for 10 days loratadine 10 mg tablet 10 mg PO DAILY mirtazapine 45 mg tablet 45 mg PO BEDTIME hydroxyzine pamoate 50 mg capsule 50 mg PO DAILY PRN (Reason: Anxiety) omeprazole 40 mg capsule,delayed release(DR/EC) 40 mg PO DAILY (DME) pen needle, diabetic [Pentips] 32 gauge x 5/32 needle See Rx Instructions .ROUTE TID Qty: 50 Rx Instructions: As directed fenofibrate micronized 30 mg capsule 30 mg PO DAILY Qty: 30 11RF insulin aspart U-100 100 unit/mL (3 mL) insulin pen 12 - 20 unit subcut TID Qty: 15 6RF (DME) FreeStyle Garrick 2 [place] Misc See Rx Instructions .ROUTE .MEDSUPPLY Qty: 1 0RF Rx Instructions: As directed (DME) FreeStyle Garrick 2 Sensor Kit See Rx Instructions .ROUTE .MEDSUPPLY Qty: 2 11RF Rx Instructions: As directed every 2 weeks
[2022-07-17 14:01] VITALS: PULSE 60; RESP 18; O2SAT 96
[2022-07-17] MEDS: Albuterol/Iprat 2.5/0.5MG 3 ML AMPUL.NEB INHALE (14:01)
[2022-07-17 14:25] LABS: MANUAL DIFF FLAG NO
[2022-07-17] MEDS: 0.9 % Sodium Chloride 500 ML IV ×2 (14:25→15:19)
[2022-07-17 14:26] VITALS: BP 103/57; PULSE 60; RESP 17; O2SAT 98
[2022-07-17 14:27] LABS: Basophils Percent Auto 0.4 % (0-2); Eosinophils Absolute Auto 0.2 X10*3/uL (0.0-0.4); Eosinophils Percent Auto 2.5 % (0-4); Hemoglobin 14.9 g/dl (14.0-18.0); Imm Gran Abs Auto 0.02 X10*3/uL (0.00-0.03); Imm Gran Pct Auto 0.3 % (0.0-0.4); Lymphocytes Absolute Auto 2.2 X10*3/uL (1.2-4.9); Lymphocytes Percent Auto 30.9 % (20-40); Mean Corpuscular HGB Conc 35.5 g/dl (31.0-36.0); Mean Corpuscular Hemoglobin 29.6 pg (27.0-33.0); Mean Corpuscular Volume 83.5 fL (80.0-98.0); Mean Platelet Volume 9.9 fL (9.4-12.4); Monocytes Absolute Auto 0.5 X10*3/uL (0.1-1.2); Monocytes Percent Auto 6.9 % (2-11); Neutrophils Absolute Auto 4.2 x10*3/uL (2.0-8.3); Platelet Count 208 X10*3/uL (160-400); Red Blood Count 5.03 X10*6/uL (4.60-5.80); Red Cell Distribution Width 12.6 % (11.0-16.0); White Blood Count 7.1 X10*3/uL (4.8-10.8)
[2022-07-17 14:31] LABS: INTERNATIONAL NORM RATIO 0.9 (0.9-1.1); Prothrombin Time 10.7 SEC (10.0-13.1)
[2022-07-17 14:40] LABS: Lactic Acid 2.1 mmol/L (0.5-2.0)
[2022-07-17 14:44] LABS: Alanine Aminotransferase 23 U/L (0-40); Albumin Level 4.5 g/dL (3.5-5.0); Alkaline Phosphatase 87 U/L (39-117); Anion Gap 17 (12-20); Aspartate Amino Transferase 15 U/L (5-37); Bilirubin Direct 0.2 mg/dL (0.0-0.5); Bilirubin Total 0.5 mg/dL (0.0-1.0); Blood Urea Nitrogen 32 mg/dL (9-16); C Reactive Protein 0.34 mg/dL (< or = 0.50); Calcium 9.7 mg/dL (8.4-10.2); Carbon Dioxide 26 mmol/L (22-29); Chloride 98 mmol/L (96-108); Creatinine Clr Calc Pharmacy 46.8; Estimated Glomerular Filt Rate 34; Glucose Random 254 mg/dL (60-115); Lipase 39 U/L (8-78); Magnesium 1.9 mg/dL (1.6-2.6); Potassium 3.9 mmol/L (3.3-5.1); Sodium 137 mmol/L (135-145); Total Protein 7.4 g/dL (6.5-8.0)
[2022-07-17 14:47] LABS: B Type Natriuretic Peptide < 10 pg/mL (<100); Troponin-I High Sensitivity 5.6 ng/L (<3.5-35.0)
[2022-07-17 14:49] LABS: D Dimer High Sensitivity < 150 NG/ML
[2022-07-17 15:06] LABS: IDNOW Serial# 16C4AD1C
[2022-07-17 15:07] LABS: COVID-19 Test Negative (Negative)
[2022-07-17] MEDS: methylPREDNISolone Sod Succ 125 MG/2 ML VIAL 60 MG IVPUSH (15:24)
[2022-07-17 15:34] LABS: Appearance Urine Clear; Color Urine Yellow; Glucose Urine UA >=1000 mg/dL (Negative); Leukocyte Esterase Urine Negative (Negative); Nitrite Urine Negative (Negative); PH 5.5 (5.0-9.0); UMIC TRIGGER UACC YES; Urine Blood Negative (Negative); Urine Ketones Negative (Negative); Urine Protein Negative (Neg-Trace)
[2022-07-17 15:39] LABS: Bacteria Urine None Seen (None Seen); Hyaline Casts Urine 0-2 /LPF (0-2); RBC Urine 0-2 /HPF (0-2); Squamous Epithelial Cell Urine 0-2 /HPF (0-2); WBC Urine 0-5 /HPF (0-5)
[2022-07-17 15:59] VITALS: BP 110/59; PULSE 60; RESP 16; TEMP 36.8; O2SAT 98
[2022-07-17 16:23] LABS: Reflex Lactate? Lactic Acid Added
[2022-07-17 16:42] VITALS: BP 123/67; PULSE 65; RESP 13; O2SAT 97
[2022-07-17] MEDS: LORazepam 1 MG TABLET 2 MG PO (16:47)
--- NOTE | 2022-07-17 16:59 | PC.NURSE ---
pt's at bedside. informed provider that pt reported 7/10 chest pain. medicated patient according to TEVIN.
[2022-07-17 17:00] LABS: ~Lactic Acid-LAB USE ONLY 0.9 mmol/L (0.5-2.0)
[2022-07-17 17:10] LABS: Troponin-I High Sensitivity 5.9 ng/L (<3.5-35.0)
== END 2022-07-17 17:52 | disposition home or self-care (01) ==
PROVIDERS: Emergency Medicine; Emergency Provider Emergency Medicine; PCP Internal Medicine
DX: J45.31 Mild persistent asthma with (acute) exacerbation (principal); Z20.822 Contact with and (suspected) exposure to COVID-19; R07.9 Chest pain, unspecified; R06.02 Shortness of breath; R53.1 Weakness; R51.9 Headache, unspecified; I10 Essential (primary) hypertension; E78.5 Hyperlipidemia, unspecified; E11.9 Type 2 diabetes mellitus without complications; F17.210 Nicotine dependence, cigarettes, uncomplicated; Z79.899 Other long term (current) drug therapy; Z79.02 Long term (current) use of antithrombotics/antiplatelets; Z79.4 Long term (current) use of insulin
CPT/HCPCS: 36415; 71045; 80048; 80076; 81001; 83605; 83690; 83735; 83880; 84484; 85025; 85379; 85610; 86140; 87635; 93005; 94640; 96361; 96374; 99284; 99285; J2930

== ENCOUNTER 2022-08-21 23:04 | Emergency (ER) | payer OTHER, SELFPAY ==
--- NOTE | ~2022-08-21 | XR_ITS ---
EXAMINATION: XR KNEE, RIGHT CLINICAL INFORMATION: Pain and swelling COMPARISON: None TECHNIQUE: Two views of the right knee. FINDINGS: No fracture or dislocation. Compartmental joint spaces are maintained. Moderate joint effusion. The soft tissues are otherwise unremarkable. XR/XR knee RT 2V IMPRESSION: Moderate joint effusion. No acute osseous abnormality.
[2022-08-21 23:13] VITALS: BP 136/81; PULSE 90; RESP 16; TEMP 37; O2SAT 99; BMI 31.9
[2022-08-22] VITALS: BP 139/76; PULSE 93; RESP 16; TEMP 37.3; O2SAT 96
[2022-08-22 01:20] LABS: Basophils Percent Auto 0.3 % (0-2); Eosinophils Absolute Auto 0.1 X10*3/uL (0.0-0.4); Hematocrit 38.3 % (42.0-52.0); Hemoglobin 13.5 g/dl (14.0-18.0); Imm Gran Abs Auto 0.03 X10*3/uL (0.00-0.03); Imm Gran Pct Auto 0.3 % (0.0-0.4); Lymphocytes Absolute Auto 1.3 X10*3/uL (1.2-4.9); Lymphocytes Percent Auto 13.6 % (20-40); MANUAL DIFF FLAG NO; Mean Corpuscular HGB Conc 35.2 g/dl (31.0-36.0); Mean Corpuscular Hemoglobin 29.2 pg (27.0-33.0); Mean Corpuscular Volume 82.7 fL (80.0-98.0); Mean Platelet Volume 10.1 fL (9.4-12.4); Monocytes Absolute Auto 0.8 X10*3/uL (0.1-1.2); Monocytes Percent Auto 8.3 % (2-11); Neutrophils Absolute Auto 7.1 x10*3/uL (2.0-8.3); Neutrophils Percent Auto 76.5 % (45-73); Platelet Count 184 X10*3/uL (160-400); Red Blood Count 4.63 X10*6/uL (4.60-5.80); Red Cell Distribution Width 12.8 % (11.0-16.0); White Blood Count 9.3 X10*3/uL (4.8-10.8)
[2022-08-22] MEDS: HYDROmorphone HCl 0.5 MG/0.5 ML SYRINGE IVPUSH (01:27)
--- NOTE | 2022-08-22 01:40 | ED_ITS ---
HPI - Extremity Injury (Lower) General Chief Complaint: Extremity Injury, Lower Stated Complaint: pain in right knee, cannot stand Time Seen by Provider: 08/22/22 00:15 History of Present Illness HPI Narrative: Patient is a 52-year-old male history of AICD history of diabetes presented today with having left knee pain. Patient denies any trauma to the knee. Complaining of pain worse with movement. Unable to ambulate. Patient home. There is no fever no chills no systemic complaints. No cough no congestion or symptoms. Patient come home. Related Data Home Medications Medication Instructions Recorded Confirmed atorvastatin 20 mg tablet 20 mg PO DAILY 08/16/20 07/15/22 cholecalciferol (vitamin D3) 25 25 mcg PO QAM 08/16/20 07/15/22 mcg (1,000 unit) tablet trazodone 150 mg tablet 150 mg PO DAILY 08/16/20 07/15/22 insulin glargine 100 unit/mL 40 unit subcut BEDTIME 03/13/21 07/15/22 subcutaneous solution sertraline 100 mg tablet 100 mg PO DAILY 03/13/21 07/15/22 hydroxyzine pamoate 50 mg capsule 50 mg PO DAILY PRN Anxiety 06/26/21 07/15/22 loratadine 10 mg tablet 10 mg PO DAILY 06/26/21 07/15/22 mirtazapine 45 mg tablet 45 mg PO BEDTIME 06/26/21 07/15/22 omeprazole 40 mg capsule,delayed 40 mg PO DAILY 11/01/21 07/15/22 release pen needle, diabetic 32 gauge x #50 ea 11/01/21 07/15/2232 (Pentips) Previous Rx's Medication Instructions Recorded albuterol sulfate 2.5 mg/0.5 mL 5 mg inhalation Q6H PRN shortness 08/01/20 solution for nebulization of breath or wheezing #30 ea albuterol sulfate 90 mcg/actuation 2 inh inhalation Q4-6H PRN 08/01/20 breath activated powder inhaler shortness of breath or wheezing #1 ea lancets 33 gauge (TRUEplus Lancets) #200 ea 03/13/21 terbinafine HCl 1 % topical cream 1 appl topical BID #15 grams 03/13/21 diphenhydramine HCl 50 mg capsule 50 mg PO TID PRN itching #20 caps 09/06/21 methocarbamol 750 mg tablet 750 mg PO TID PRN muscle spasm #30 09/06/21 tabs fenofibrate micronized 30 mg 30 mg PO DAILY #30 caps 01/31/22 capsule flash glucose scanning reader #1 ea 01/31/22 (FreeStyle Gar[place] 2 [place]) flash glucose sensor (FreeStyle #2 ea 01/31/22 Garrick 2 Sensor kit) insulin aspart U-100 100 unit/mL 12 - 20 unit (0.12 - 0.2 mL) 01/31/22 (3 mL) subcutaneous pen subcut TID #15 mL metformin 500 mg tablet 500 mg PO BID #60 tabs 02/05/22 spironolactone 25 mg tablet 25 mg PO QAM #90 tabs 02/08/22 digoxin 250 mcg (0.25 mg) tablet 250 mcg PO QAM #90 tabs 03/06/22 furosemide 80 mg tablet 80 mg PO QAM #90 tabs 03/06/22 ivabradine 7.5 mg tablet (Corlanor) 7.5 mg PO BID #60 tabs 03/06/22 sacubitril 97 mg-valsartan 103 mg 1 tab PO BID #60 tabs 03/06/22 tablet (Entresto) empagliflozin 25 mg tablet 25 mg PO QAM #30 tabs 04/30/22 (Jardiance) blood sugar diagnostic (FreeStyle #150 ea 05/02/22 Lite Strips) acetaminophen 500 mg tablet 1,000 mg PO QID PRN fever or pain 05/16/22 (Tylenol Extra Strength) #14 tabs oxycodone 5 mg tablet 5 mg PO Q6H PRN pain #15 tabs 05/16/22 carvedilol 25 mg tablet See Rx Instructions PO BID #120 06/17/22 tabs loperamide 2 mg capsule 2 mg PO Q4H PRN loose stool #14 07/17/22 (Anti-Diarrheal (loperamide)) caps ondansetron HCl 4 mg tablet 4 mg PO Q6H PRN nausea and 07/17/22 vomiting #10 tabs dulaglutide 0.75 mg/0.5 mL 0.75 mg (0.5 mL) subcut QWEEK #2 mL 08/12/22 subcutaneous pen injector ([facility]) Allergies Allergy/AdvReac Type Severity Reaction Status Date / Time No Known Allergies Allergy Verified 08/21/22 23:15 [No Known Allergies*] Review of Systems Review of Systems: Positive pain to left knee Yes all other systems are reviewed and are negative [facility] Past Medical History Attestation statement: The following information was validated with the patient. Medical History Asthma Diabetes GERD (gastroesophageal reflux disease) Heart failure with reduced ejection fraction High cholesterol HLD (hyperlipidemia) HTN (hypertension) Implantable cardioverter-defibrillator lead failure Nonischemic cardiomyopathy Obesity due to excess calories NANO (obstructive sleep apnea) Pacemaker Type 2 diabetes mellitus with chronic kidney disease Surgical History History of circumcision History of permanent cardiac pacemaker placement (~2008) History of tonsillectomy Hx of cardiac cath Hx of transesophageal echocardiography (DAWN) for monitoring Family History Family History Father HTN (hypertension) Diabetes CVD (cardiovascular disease) Hypercholesterolemia Mother Hypercholesterolemia HTN (hypertension) Diabetes Social History Social History Household Members: Significant Other Household Members Other:: SO:Thu Alcohol intake: current Alcohol intake frequency: a few times a week Patient Tobacco Use Status: Current someday Tobacco user Tobacco use type: Cigarette Advance Directives: No Advance Directives Information Provided: No Physical Exam Vital Signs: Vital Signs: Last Vital Signs Temp 98.7 F 08/22/22 01:44 Pulse 82 08/22/22 01:44 Resp 16 08/22/22 01:44 BP 117/59 L 08/22/22 01:44 Pulse Ox 94 08/22/22 01:44 O2 Del Method 08/22/22 01:44 BMI result Body Mass Index 31.9 Appearance: Alert. Oriented X3. No acute distress. Eyes: Pupils equal, round and reactive to light. ENT: Pharynx normal. Neck: Normal inspection. Neck supple. No lymph nodes noted. No crepitus CVS: Normal heart rate and rhythm. Pulses normal. Normal S1 and S2 Respiratory: No respiratory distress. Breath sounds normal. No Wheezing. No rales Abdomen: Soft and nontender. No rigidity. No distention. good BS x4 Skin: Skin warm and dry. Normal skin color. Normal skin turgor. Extremities: examination of the right knee positive for having effusion in the consult in the knee. Resume on limited range of motion. distal pulses are intact sensations are intact Neuro: Oriented X 3. No motor deficit. No sensory deficit. Moving all extermities. No slurred speech MDM - Extremity Injury (Lower) MDM Narrative Medical decision making narrative: patient has joint effusion noted in the right knee X-ray and by exam. Risk and benefit of Joint aspiration discussed with patient. An 18 gauge needle was used to aspirate approximately 30 cc of synovial fluid. Symptomatically improved. Currently awaiting cell count culture results. In stable condition.. Lab Data Result diagrams: 08/22/22 01:15 08/22/22 01:15 Labs: Lab Results 08/22/22 08/22/22 Range/Units 01:15 01:56 WBC 9.3 (4.8-10.8) X10*3/uL RBC 4.63 (4.60-5.80) X10*6/uL Hgb 13.5 L (14.0-18.0) g/dl Hct 38.3 L (42.0-52.0) % MCV 82.7 (80.0-98.0) fL MCH 29.2 (27.0-33.0) pg MCHC 35.2 (31.0-36.0) g/dl RDW 12.8 (11.0-16.0) % Plt Count 184 (160-400) X10*3/uL MPV 10.1 (9.4-12.4) fL Immature Gran % (Auto) 0.3 (0.0-0.4) % Neut % (Auto) 76.5 H (45-73) % Lymph % (Auto) 13.6 L (20-40) % Gaines % (Auto) 8.3 (2-11) % Eos % (Auto) 1.0 (0-4) % Baso % (Auto) 0.3 (0-2) % Lymph # (Auto) 1.3 (1.2-4.9) X10*3/uL Gaines # (Auto) 0.8 (0.1-1.2) X10*3/uL Eos # (Auto) 0.1 (0.0-0.4) X10*3/uL Baso # (Auto) 0.0 (0.0-0.2) X10*3/uL Abs Immat Gran (auto) 0.03 (0.00-0.03) X10*3/uL Absolute Neuts (auto) 7.1 (2.0-8.3) x10*3/uL Absolute Nucleated RBC 0.000 (0.0-0.012) X10*3/uL Nucleated RBC % (auto) 0.0 (0.0-0.2) /100WBC Synovial Source right knee Procedures Joint Aspiration/Injection Joint Asp./Inject. 1: Time Out Performed: Yes Side of body: right Joint Aspirated: knee Ultrasound Guidance: No Skin Prep: Povidone-Iodine1% Local Anesthetic: lidocaine 1% Needle Size Used: 18G Fluid Obtained: turbid Total fluid obtained (mL): 10 Amount of medication injected (mL): 30 Patient Tolerated Procedure: well Complications: none Discharge Plan Discharge Clinical Impression: Joint effusion Patient Disposition: Still a Patient Prescriptions: No Action metformin 500 mg tablet 500 mg PO BID Qty: 60 6RF spironolactone 25 mg tablet 25 mg PO QAM Qty: 90 2RF Entresto 97-103 mg tablet 1 tab PO BID Qty: 60 5RF Corlanor 7.5 mg tablet 7.5 mg PO BID Qty: 60 5RF furosemide 80 mg tablet 80 mg PO QAM Qty: 90 1RF digoxin 250 mcg (0.25 mg) tablet 250 mcg PO QAM Qty: 90 1RF Jardiance 25 mg tablet 25 mg PO QAM Qty: 30 6RF (DME) FreeStyle Lite Strips Strip See Rx Instructions .ROUTE .MEDSUPPLY Qty: 150 11RF Rx Instructions: As directed four times a day carvedilol 25 mg tablet See Rx Instructions PO BID Qty: 120 3RF Rx Instructions: 25mg 2 tablets PO 2 times a day; Trulicity 0.75 mg/0.5 mL pen injector 0.75 mg subcut QWEEK Qty: 2 2RF albuterol sulfate 90 mcg/actuation aerosol powdr breath activated 2 inh inhalation Q4-6H PRN (Reason: shortness of breath or wheezing) Qty: 1 0RF albuterol sulfate 2.5 mg/0.5 mL solution for nebulization 5 mg inhalation Q6H PRN (Reason: shortness of breath or wheezing) Qty: 30 0RF oxycodone 5 mg tablet 5 mg PO Q6H PRN (Reason: pain) Qty: 15 0RF Rx Instructions: Partial Fill upon patient request. acetaminophen [Tylenol Extra Strength] 500 mg tablet 1,000 mg PO QID PRN (Reason: fever or pain) Qty: 14 0RF loperamide [Anti-Diarrheal (loperamide)] 2 mg capsule 2 mg PO Q4H PRN (Reason: loose stool) Qty: 14 0RF Rx Instructions: administer after each loose stool until symptoms controlled; do not exceed 8 mg per 24 hrs ondansetron HCl 4 mg tablet 4 mg PO Q6H PRN (Reason: nausea and vomiting) Qty: 10 0RF diphenhydramine HCl 50 mg capsule 50 mg PO TID PRN (Reason: itching) Qty: 20 0RF methocarbamol 750 mg tablet 750 mg PO TID PRN (Reason: muscle spasm) Qty: 30 0RF atorvastatin 20 mg tablet 20 mg PO DAILY cholecalciferol (vitamin D3) 25 mcg (1,000 unit) tablet 25 mcg PO QAM trazodone 150 mg tablet 150 mg PO DAILY sertraline 100 mg tablet 100 mg PO DAILY Lantus U-100 Insulin 100 unit/mL solution 40 unit subcut BEDTIME (DME) lancets [TRUEplus Lancets] 33 gauge misc See Rx Instructions .ROUTE .MEDSUPPLY Qty: 200 11RF Rx Instructions: Four times a day terbinafine HCl 1 % cream 1 appl topical BID Qty: 15 1RF Rx Instructions: Use for 10 days loratadine 10 mg tablet 10 mg PO DAILY mirtazapine 45 mg tablet 45 mg PO BEDTIME hydroxyzine pamoate 50 mg capsule 50 mg PO DAILY PRN (Reason: Anxiety) omeprazole 40 mg capsule,delayed release(DR/EC) 40 mg PO DAILY (DME) pen needle, diabetic [Pentips] 32 gauge x 5/32 needle See Rx Instructions .ROUTE TID Qty: 50 Rx Instructions: As directed fenofibrate micronized 30 mg capsule 30 mg PO DAILY Qty: 30 11RF insulin aspart U-100 100 unit/mL (3 mL) insulin pen 12 - 20 unit subcut TID Qty: 15 6RF (DME) FreeStyle Garrick 2 [place] Misc See Rx Instructions .ROUTE .MEDSUPPLY Qty: 1 0RF Rx Instructions: As directed ([facility] [place]) FreeStyle Garrick 2 Sensor Kit See Rx Instructions .ROUTE .MEDSUPPLY Qty: 2 11RF Rx Instructions: As directed every 2 weeks
[2022-08-22 01:44] VITALS: BP 117/59; PULSE 82; RESP 16; TEMP 37.1; O2SAT 94
[2022-08-22 02:03] LABS: Source Synovial Fluid right knee
[2022-08-22 02:26] LABS: MN% 6.4 %; PMN% 93.6 %
[2022-08-22 02:28] LABS: RBC Synovial Fluid 0.007 X10*6/uL
[2022-08-22 02:52] LABS: Anion Gap 20 (12-20); Blood Urea Nitrogen 22 mg/dL (9-16); Calcium 9.3 mg/dL (8.4-10.2); Carbon Dioxide 19 mmol/L (22-29); Chloride 100 mmol/L (96-108); Creatinine Clr Calc Pharmacy 65.6; Estimated Glomerular Filt Rate 50; Glucose Random 271 mg/dL (60-115); Potassium 4.3 mmol/L (3.3-5.1); Sodium 135 mmol/L (135-145)
--- NOTE | 2022-08-22 03:14 | PC.NURSE ---
Took over care from MANSOOR Bramblia. Will continue to monitor.
[2022-08-22] MEDS: Acetaminophen 325 MG TABLET 650 MG PO (03:30)
[2022-08-22] MEDS: oxyCODONE HCl Immed Release 5 MG TABLET PO (03:31)
--- NOTE | 2022-08-22 03:33 | PC.NURSE ---
Dr. Saha into assess pt. pt reports having right Knee pain, medicated per Dec.
[2022-08-22] MEDS: predniSONE 20 MG TABLET 60 MG PO (03:44)
[2022-08-22 03:48] VITALS: BP 116/59; PULSE 87; RESP 16; TEMP 36.2; O2SAT 98
[2022-08-22 03:49] LABS: BF Shift QC OK YES; Lymphocytes Synovial Fluid 4 %; Man Diluent Bkgrd OK YES; Monocytes Synovial Fluid 11 %; Neutrophils Synovial Fluid 85 %
--- NOTE | 2022-08-22 03:49 | PC.NURSE ---
Medicated pt per Dec. Right leg has CMS and pedal pulses. Iv removed. Reviewed discharge instructions with pt and pt verbalized understanding.
[2022-08-22 06:03] LABS: Glucose Synovial Fluid 228 MG/DL
[2022-08-22 06:04] LABS: Uric Acid Synovial Fluid 8 MG/DL
[2022-08-26 16:27] LABS: Lyme PCR Source SYNOVIAL FLUID
== END 2022-08-22 03:54 | disposition home or self-care (01) ==
PROVIDERS: Emergency Provider Emergency Medicine Emergency Medical Services
DX: M25.461 Effusion, right knee (principal); M25.561 Pain in right knee; R60.0 Localized edema; Z79.899 Other long term (current) drug therapy; F17.200 Nicotine dependence, unspecified, uncomplicated; Z71.6 Tobacco abuse counseling
CPT/HCPCS: 20611; 36415; 73560; 80048; 82945; 84560; 85025; 87070; 87073; 87205; 87476; 89051; 99284; J1170

== ENCOUNTER 2022-09-16 12:23 | Emergency (ER) | payer OTHER, SELFPAY ==
--- NOTE | ~2022-09-16 | XR_ITS ---
EXAMINATION: XR KNEE, RIGHT CLINICAL INFORMATION: Pain. No history of injury. COMPARISON: Previous x-ray July 2022 TECHNIQUE: Four views of the right knee. FINDINGS: Bone alignment is normal. No fracture or dislocation. Normal disc spaces. Moderate joint effusion similar to previous exam. XR/XR knee RT 4V IMPRESSION: Moderate joint effusion similar to previous exam.
[2022-09-16 12:30] VITALS: BP 112/44; PULSE 72; RESP 18; TEMP 36.6; O2SAT 99; BMI 30.9
--- NOTE | 2022-09-16 12:35 | ED.EXTPRO ---
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 Patient states that he keeps having these incidents of his right knee swelling. Patient states that he was seen here last month and had it drained. Patient states that he has an appointment with orthopedics but it isn't until mid way through next month. Patient denies any dizziness, lightheadedness, abdominal pain, nausea, vomiting, fever, chills, blurry vision, double vision, loss of vision, chest pain, difficulty breathing, shortness of breath, back pain, night sweats, pain with urination, increased urinary frequency, increased urinary urgency, blood in his urine or stool, syncope or a near syncopal episode, recent trauma or falls, bowel incontinence, bladder incontinence, bowel retention, bladder retention, or any other complaints at this time. <FLOR Payne - Last Filed: 09/16/22 14:16> MD Complaint: extremity pain and extremity swelling <FLOR Payne - Last Filed: 09/16/22 14:16> Onset (ago): day(s) <FLOR Payne Last Filed: 09/16/22 14:16> Pain Consistency: intermittent <FLOR Payne Last Filed: 09/16/22 14:16> Location: right <FLOR Payne Last Filed: 09/16/22 14:16> Severity scale (1-10): 3 <FLOR Payne - Last Filed: 09/16/22 14:16> Quality: aching <FLOR Payne - Last Filed: 09/16/22 14:16> Radiation: none <FLOR Payne - Last Filed: 09/16/22 14:16> Relieving factors: nothing <FLOR Payne - Last Filed: 09/16/22 14:16> Exacerbating factors: nothing <FLOR Payne - Last Filed: 09/16/22 14:16> Associated symptoms: denies other symptoms <FLOR Payne - Last Filed: 09/16/22 14:16> Related Data Home medications: Home Medications Medication Instructions Recorded Confirmed atorvastatin 20 mg tablet 20 mg PO DAILY 08/16/20 07/15/22 cholecalciferol (vitamin D3) 25 25 mcg PO QAM 08/16/20 07/15/22 mcg (1,000 unit) tablet trazodone 150 mg tablet 150 mg PO DAILY 08/16/20 07/15/22 insulin glargine 100 unit/mL 40 unit subcut BEDTIME 03/13/21 07/15/22 subcutaneous solution sertraline 100 mg tablet 100 mg PO DAILY 03/13/21 07/15/22 hydroxyzine pamoate 50 mg capsule 50 mg PO DAILY PRN Anxiety 06/26/21 07/15/22 loratadine 10 mg tablet 10 mg PO DAILY 06/26/21 07/15/22 mirtazapine 45 mg tablet 45 mg PO BEDTIME 06/26/21 07/15/22 omeprazole 40 mg capsule,delayed 40 mg PO DAILY 11/01/21 07/15/22 release pen needle, diabetic 32 gauge x #50 ea 11/01/21 07/15/22 5/32 (Pentips) Previous Rx's Medication Instructions Recorded albuterol sulfate 2.5 mg/0.5 mL 5 mg inhalation Q6H PRN shortness 08/01/20 solution for nebulization of breath or wheezing #30 ea albuterol sulfate 90 mcg/actuation 2 inh inhalation Q4-6H PRN 08/01/20 breath activated powder inhaler shortness of breath or wheezing #1 ea lancets 33 gauge (TRUEplus Lancets) #200 ea 05/18/21 terbinafine HCl 1 % topical cream 1 appl topical BID #15 grams 03/13/21 diphenhydramine HCl 50 mg capsule 50 mg PO TID PRN itching #20 caps 09/06/21 methocarbamol 750 mg tablet 750 mg PO TID PRN muscle spasm #30 09/06/21 tabs fenofibrate micronized 30 mg 30 mg PO DAILY #30 caps 01/31/22 capsule flash glucose scanning reader #1 ea 01/31/22 (FreeStyle Garrick 2 [place]) flash glucose sensor (FreeStyle #2 ea 01/31/22 Garrick 2 Sensor kit) insulin aspart U-100 100 unit/mL 12 - 20 unit (0.12 - 0.2 mL) 01/31/22 (3 mL) subcutaneous pen subcut TID #15 mL metformin 500 mg tablet 500 mg PO BID #60 tabs 02/05/22 spironolactone 25 mg tablet 25 mg PO QAM #90 tabs 02/08/22 furosemide 80 mg tablet 80 mg PO QAM #90 tabs 03/06/22 ivabradine 7.5 mg tablet (Corlanor) 7.5 mg PO BID #60 tabs 03/06/22 sacubitril 97 mg-valsartan 103 mg 1 tab PO BID #60 tabs 03/06/22 tablet (Entresto) empagliflozin 25 mg tablet 25 mg PO QAM #30 tabs 04/30/22 (Jardiance) blood sugar diagnostic (FreeStyle #150 ea 05/02/22 Lite Strips) acetaminophen 500 mg tablet 1,000 mg PO QID PRN fever or pain 05/16/22 (Tylenol Extra Strength) #14 tabs oxycodone 5 mg tablet 5 mg PO Q6H PRN pain #15 tabs 05/16/22 carvedilol 25 mg tablet See Rx Instructions PO BID #120 06/17/22 tabs loperamide 2 mg capsule 2 mg PO Q4H PRN loose stool #14 07/17/22 (Anti-Diarrheal (loperamide)) caps ondansetron HCl 4 mg tablet 4 mg PO Q6H PRN nausea and 07/17/22 vomiting #10 tabs dulaglutide 0.75 mg/0.5 mL 0.75 mg (0.5 mL) subcut QWEEK #2 mL 08/12/22 subcutaneous pen injector (Trulicity) oxycodone 5 mg tablet 5 mg PO Q8H PRN pain #7 tabs 08/22/22 prednisone 20 mg tablet 40 mg PO DAILY #10 tabs 08/22/22 digoxin 250 mcg (0.25 mg) tablet 250 mcg PO QAM #90 tabs 09/16/22 <Ryan Evans DO - Last Filed: 09/16/22 12:37> Allergies/Adverse reactions: Allergies Allergy/AdvReac Type Severity Reaction Status Date / Time No Known Allergies Allergy Verified 08/21/22 23:15 [No Known Allergies*] <Ryan Evans DO - Last Filed: 09/16/22 12:37> Review of Systems Constitutional: Constitutional: Reports no additional constitutional complaints, Denies chills, Denies fever(s) and Denies night sweats <FLOR Payne Last Filed: 09/16/22 14:16> Eyes: Eyes: Reports no additional eye complaints, Denies blurry vision, Denies change in vision, Denies diplopia, Denies eye discharge, Denies loss of vision and Denies eye pain <FLOR Payne Last Filed: 09/16/22 14:16> ENT: Denies dizziness <FLOR Payne Last Filed: 09/16/22 14:16> Cardiovascular: Cardiovascular: Reports no additional cardiovascular complaints, Denies chest pain, Denies lightheadedness, Denies Loss of Consciousness and Denies dyspnea <FLOR Payne Last Filed: 09/16/22 14:16> Respiratory: Respiratory: Reports no additional respiratory complaints and Denies dyspnea <FLOR Payne Last Filed: 09/16/22 14:16> Gastrointestinal: Gastrointestinal: Reports no additional gastrointestinal complaints, Denies abdominal pain, Denies melena, Denies hematochezia, Denies change in bowel habits and Denies change in stool character <FLOR Payne Last Filed: 09/16/22 14:16> Genitourinary: Genitourinary: Reports no additional male genitourinary complaints, Denies hematuria, Denies oliguria, Denies difficulty urinating, Denies dysuria, Denies urinary frequency, Denies urinary hesitancy, Denies urinary incontinence and Denies urinary urgency <FLOR Payne - Last Filed: 09/16/22 14:16> Musculoskeletal: Musculoskeletal: Reports no additional musculoskeletal complaints, Denies numbness and Denies tingling <FLOR Payne - Last Filed: 09/16/22 14:16> Comments: right knee pain, right knee swelling <FLOR Payne - Last Filed: 09/16/22 14:16> Neurologic: Denies dizziness, Denies loss of vision, Denies numbness and Denies tingling <FLOR Payne - Last Filed: 09/16/22 14:16> Psychiatric: Psychiatric: Reports no additional psychiatric complaints <FLOR Payne - Last Filed: 09/16/22 14:16> Endocrine: Endocrine: Reports no additional endocrine complaints <FLOR Payne - Last Filed: 09/16/22 14:16> Hematologic/Lymphatic: Hematologic/Lymphatic: Reports no additional hematologic/lymphatic complaints <FLOR Payne - Last Filed: 09/16/22 14:16> Allergic/Immunologic: Allergic/Immunologic: Reports no additional allergic/immunologic complaints <FLOR Payne - Last Filed: 09/16/22 14:16> [facility] Past Medical History Attestation statement: The following information was validated with the patient. <FLOR Payne - Last Filed: 09/16/22 14:16> Source: old records reviewed <FLOR Payne - Last Filed: 09/16/22 14:16> Medical History: Medical History Asthma Diabetes GERD (gastroesophageal reflux disease) Heart failure with reduced ejection fraction High cholesterol HLD (hyperlipidemia) HTN (hypertension) Implantable cardioverter-defibrillator lead failure Nonischemic cardiomyopathy Obesity due to excess calories NANO (obstructive sleep apnea) Pacemaker Type 2 diabetes mellitus with chronic kidney disease <Ryan Evans DO - Last Filed: 09/16/22 12:37> Surgical History: Surgical History History of circumcision History of permanent cardiac pacemaker placement (~2008) History of tonsillectomy Hx of cardiac cath Hx of transesophageal echocardiography (DAWN) for monitoring <Ryan Evans DO - Last Filed: 09/16/22 12:37> Family History Family History: Family History Father HTN (hypertension) Diabetes CVD (cardiovascular disease) Hypercholesterolemia Mother Hypercholesterolemia HTN (hypertension) Diabetes <Ryan Evans DO - Last Filed: 09/16/22 12:37> Social History Social History: Social History Household Members: Significant Other Household Members Other:: SO:Thu Alcohol intake: current Alcohol intake frequency: a few times a week Patient Tobacco Use Status: Never used Tobacco Tobacco use type: Cigarette Advance Directives: No Advance Directives Information Provided: Yes <Ryan Evans DO - Last Filed: 09/16/22 12:37> Physical Exam Vital Signs: Vital Signs: Last Vital Signs Temp 97.9 F 09/16/22 12:30 Pulse 72 09/16/22 12:30 Resp 18 09/16/22 12:30 BP 112/44 L 09/16/22 12:30 Pulse Ox 99 09/16/22 12:30 O2 Del Method 09/16/22 12:30 BMI result Body Mass Index 30.9 <Ryan Evans DO - Last Filed: 09/16/22 12:37> Vital Signs: Last Vital Signs Temp 97.9 F 09/16/22 12:30 Pulse 72 09/16/22 12:30 Resp 18 09/16/22 12:30 BP 112/44 L 09/16/22 12:30 Pulse Ox 99 09/16/22 12:30 O2 Del Method 09/16/22 12:30 BMI result Body Mass Index 30.9 <FLOR Payne - Last Filed: 09/16/22 14:16> Const: General: cooperative, no acute distress, alert and awake <FLOR Payne - Last Filed: 09/16/22 14:16> Nutritional Appearance: well nourished <FLOR Payne - Last Filed: 09/16/22 14:16> Orientation/consciousness: patient oriented x3 <FLOR Payne - Last Filed: 09/16/22 14:16> Limitations: no limitations <FLOR Payne - Last Filed: 09/16/22 14:16> HEENT: Head: Yes normal to inspection and Yes atraumatic <Jennifer Sneed [facility] Last Filed: 09/16/22 14:16> Ears: hearing grossly normal bilaterally and external ears normal <Jennifer Sneed [facility] Last Filed: 09/16/22 14:16> General nose exam: Normal external nose present, no nasal discharge noted and no epistaxis <Jennifer Sneed [facility] Last Filed: 09/16/22 14:16> Face and sinus: Yes normal facial exam, No abrasion and No laceration <Jennifer Sneed [facility] Last Filed: 09/16/22 14:16> Mouth: Normal oral and palatal mucosa present, no drooling and no muffled voice <Jennifer Sneed [facility] Last Filed: 09/16/22 14:16> Eyes: General: appearance normal, both eyes and all related structures <Jennifer Sneed [facility] Last Filed: 09/16/22 14:16> Periorbital: periorbital findings normal <Jennifer Sneed [facility] Last Filed: 09/16/22 14:16> Eyelids: Yes eyelids normal <Jennifer Sneed [facility] Last Filed: 09/16/22 14:16> Conjunctivae: conjunctivae normal <Jennifer Sneed [facility] Last Filed: 09/16/22 14:16> Pupils: Equal, round and reactive pupils present <Jennifer Sneed [facility] Last Filed: 09/16/22 14:16> EOM: EOMs intact bilaterally <Jennifer Sneed [facility] Last Filed: 09/16/22 14:16> Neck: Neck: Yes normal visual inspection, Yes full ROM and Yes no lymphadenopathy <Jennifer Sneed [facility] Last Filed: 09/16/22 14:16> Chest: Chest palpation & inspection: normal inspection of the chest <Jennifer Garayjoi [facility] Last Filed: 09/16/22 14:16> Resp: Effort & Inspection: normal respiratory effort and able to speak in complete sentences <Jennifer Garayjoi [facility] Last Filed: 09/16/22 14:16> Auscultation: clear to auscultation bilaterally <Jennifer Garayjoi PA - Last Filed: 09/16/22 14:16> Cardio: Rate: regular rate <Jennifer Sneed PA - Last Filed: 09/16/22 14:16> Rhythm: regular rhythm <Jennifer Sneed PA - Last Filed: 09/16/22 14:16> GI: Inspection: Yes normal to inspection <Jennifer Sneed PA - Last Filed: 09/16/22 14:16> Neuro: General: patient oriented x3 and moves all extremities <Jennifer Sneed PA - Last Filed: 09/16/22 14:16> Cranial nerves: Yes Equal, round and reactive pupils present <Jennifer Sneed PA - Last Filed: 09/16/22 14:16> Cognition (Neuro): normal cognition <Jennifer Sneed PA - Last Filed: 09/16/22 14:16> Motor exam (neuro): 5/5 motor strength present throughout <Jennifer Sneed PA - Last Filed: 09/16/22 14:16> Sensory Exam: Normal double simultaneous stimulation for sensation <Jennifer Sneed PA - Last Filed: 09/16/22 14:16> Coordination: [id number] test normal <Jennifer Sneed PA - Last Filed: 09/16/22 14:16> Extrem: Other: minimal swelling to the right knee, no erythema, no warmth <Jennifer Sneed PA - Last Filed: 09/16/22 14:16> General: Yes full ROM and Yes capillary refill normal <Jennifer Sneed PA - Last Filed: 09/16/22 14:16> Psych: Appearance: grossly normal <Jennifer Sneed PA - Last Filed: 09/16/22 14:16> Mental Status: mental status grossly normal <Jennifer Sneed PA - Last Filed: 09/16/22 14:16> Affect: normal affect <Jennifer GarayFLOR tamez - Last Filed: 09/16/22 14:16> Attitude: cooperative <Jennifer Sneed PA - Last Filed: 09/16/22 14:16> Thought process: Normal thought process present <Jennifer GarayFLOR tamez - Last Filed: 09/16/22 14:16> Thought content: Normal thought content present <Jennifer Garayjoi PA - Last Filed: 09/16/22 14:16> Insight: Good insight present (Psych) <LFOR Payne - Last Filed: 09/16/22 14:16> Course Course Course Narrative: 52 year old male with acute on chronic right knee pain and swelling. He denies any falls or injuries. He denies fever chills nausea vomiting or diarrhea. Right knee had similiar swelling one month ago. Patient states he has not been able to follow up. Patient unsure for the reason of the swelling and states he can't walk now. He is currently disabled due to having a pacemaker and having diabetes. I will get a XR I saw this patient in triage and did a rapid medical screening exam. No redness to the knee at this time. Tender all over with palpation. I will get a XR and sign out to be seen by another provider. <Ryan Evans DO - Last Filed: 09/16/22 12:37> MDM - Extremity (Nontraumatic) MDM Narrative Medical decision making narrative: Patient is a 52 year old assigned male at with a history of DM, HTN, and heart failure presenting to the emergency department today with right knee pain. Patient's physical exam showed very minimal swelling of the right knee joint with no warmth or erythema. Patient's right knee x-ray showed a moderate joint effusion but was otherwise unremarkable. I explained my physical exam findings as well as all test results to the patient. I answered all questions asked by the patient. Patient's right knee was wrapped in a pressure dressing, without incident. I stressed the importance of the patient taking his medication as prescribed. I stressed the importance of the patient following up with his primary care provider and an orthopedic provider. I stressed the importance of the patient returning to the emergency department immediately if his symptoms were to worsen or if he were to develop any dizziness, shortness of breath, difficulty breathing, chest pain, blurry vision, loss of vision, nausea, vomiting, abdominal pain, fever, chills, back pain, or any other complaints. Patient verbalized agreement and understanding with this treatment plan and discharge. <FLOR Payne - Last Filed: 09/16/22 14:16> Medical Records Attestation: I reviewed the patient's medical records. <FLOR Payne - Last Filed: 09/16/22 14:16> Imaging Data Right knee x-ray: Attestation: I personally reviewed and interpreted this imaging study as follows: <FLOR Payne - Last Filed: 09/16/22 14:16> My impression: Moderate joint effusion. <FLOR Payne - Last Filed: 09/16/22 14:16> Radiologist's impression: EXAMINATION: XR KNEE, RIGHT? CLINICAL INFORMATION: Pain. No history of injury.? COMPARISON: Previous x-ray July 2022? TECHNIQUE: Four views of the right knee. FINDINGS: Bone alignment is normal. No fracture or dislocation. Normal disc spaces. Moderate joint effusion similar to previous exam.? XR/XR knee RT 4V IMPRESSION: Moderate joint effusion similar to previous exam. ? Dictated By: Era Valerio MD Signed By: Electronically signed by Era Valerio MD 09/16/22 [id number] <FLOR Payne - Last Filed: 09/16/22 14:16> Procedures Orthopedic Splinting/Casting Injury #1: Side: right <FLOR Payne - Last Filed: 09/16/22 14:16> Lower Extremity Injury Location: knee <FLOR Pyane - Last Filed: 09/16/22 14:16> Lower Extremity Immobilizer: Ryan wrap <FLOR Payne - Last Filed: 09/16/22 14:16> Discharge Plan Discharge Clinical Impression: Joint effusion <Ryan Evans DO - Last Filed: 09/16/22 12:37> Patient Disposition: Home, Self-Care <Ryan Evans DO - Last Filed: 09/16/22 12:37> Instructions: Swollen Knee Joint (ED) <Ryan Evans DO - Last Filed: 09/16/22 12:37> Additional Instructions: Follow up with your primary care provider and an orthopedic provider. Return to the emergency department immediately if your symptoms worsen or if you develop any dizziness, shortness of breath, difficulty breathing, chest pain, blurry vision, loss of vision, nausea, vomiting, abdominal pain, fever, chills, back pain, or any other complaints. Chiki un seguimiento con roldan proveedor de atenci?n primaria y un proveedor ortop?dico. Regrese al departamento de emergencias de inmediato si emma s?ntomas empeoran o si presenta mareos, falta de aire, dificultad para respirar, dolor de pecho, visi?n borrosa, p?rdida de la visi?n, n?useas, v?mitos, dolor abdominal, fiebre, escalofr?os, dolor de espalda o cualquier otras quejas. <Ryan Evans, DO - Last Filed: 09/16/22 12:37> Prescriptions: No Action metformin 500 mg tablet 500 mg PO BID Qty: 60 6RF spironolactone 25 mg tablet 25 mg PO QAM Qty: 90 2RF Entresto 97-103 mg tablet 1 tab PO BID Qty: 60 5RF Corlanor 7.5 mg tablet 7.5 mg PO BID Qty: 60 5RF furosemide 80 mg tablet 80 mg PO QAM Qty: 90 1RF Jardiance 25 mg tablet 25 mg PO QAM Qty: 30 6RF (DME) FreeStyle Lite Strips Strip See Rx Instructions .ROUTE .MEDSUPPLY Qty: 150 11RF Rx Instructions: As directed four times a day carvedilol 25 mg tablet See Rx Instructions PO BID Qty: 120 3RF Rx Instructions: 25mg 2 tablets PO 2 times a day; Trulicity 0.75 mg/0.5 mL pen injector 0.75 mg subcut QWEEK Qty: 2 2RF digoxin 250 mcg (0.25 mg) tablet 250 mcg PO QAM Qty: 90 3RF albuterol sulfate 90 mcg/actuation aerosol powdr breath activated 2 inh inhalation Q4-6H PRN (Reason: shortness of breath or wheezing) Qty: 1 0RF albuterol sulfate 2.5 mg/0.5 mL solution for nebulization 5 mg inhalation Q6H PRN (Reason: shortness of breath or wheezing) Qty: 30 0RF oxycodone 5 mg tablet 5 mg PO Q6H PRN (Reason: pain) Qty: 15 0RF Rx Instructions: Partial Fill upon patient request. acetaminophen [Tylenol Extra Strength] 500 mg tablet 1,000 mg PO QID PRN (Reason: fever or pain) Qty: 14 0RF loperamide [Anti-Diarrheal (loperamide)] 2 mg capsule 2 mg PO Q4H PRN (Reason: loose stool) Qty: 14 0RF Rx Instructions: administer after each loose stool until symptoms controlled; do not exceed 8 mg per 24 hrs ondansetron HCl 4 mg tablet 4 mg PO Q6H PRN (Reason: nausea and vomiting) Qty: 10 0RF oxycodone 5 mg tablet 5 mg PO Q8H PRN (Reason: pain) Qty: 7 0RF Rx Instructions: Partial Fill upon patient request. prednisone 20 mg tablet 40 mg PO DAILY Qty: 10 0RF diphenhydramine HCl 50 mg capsule 50 mg PO TID PRN (Reason: itching) Qty: 20 0RF methocarbamol 750 mg tablet 750 mg PO TID PRN (Reason: muscle spasm) Qty: 30 0RF atorvastatin 20 mg tablet 20 mg PO DAILY cholecalciferol (vitamin D3) 25 mcg (1,000 unit) tablet 25 mcg PO QAM trazodone 150 mg tablet 150 mg PO DAILY sertraline 100 mg tablet 100 mg PO DAILY Lantus U-100 Insulin 100 unit/mL solution 40 unit subcut BEDTIME (DME) lancets [TRUEplus Lancets] 33 gauge misc See Rx Instructions .ROUTE .MEDSUPPLY Qty: 200 11RF Rx Instructions: Four times a day terbinafine HCl 1 % cream 1 appl topical BID Qty: 15 1RF Rx Instructions: Use for 10 days loratadine 10 mg tablet 10 mg PO DAILY mirtazapine 45 mg tablet 45 mg PO BEDTIME hydroxyzine pamoate 50 mg capsule 50 mg PO DAILY PRN (Reason: Anxiety) omeprazole 40 mg capsule,delayed release(DR/EC) 40 mg PO DAILY (DME) pen needle, diabetic [Pentips] 32 gauge x 532 needle See Rx Instructions .ROUTE TID Qty: 50 Rx Instructions: As directed fenofibrate micronized 30 mg capsule 30 mg PO DAILY Qty: 30 11RF insulin aspart U-100 100 unit/mL (3 mL) insulin pen 12 - 20 unit subcut TID Qty: 15 6RF (DME) FreeStyle Garrick 2 [place] Misc See Rx Instructions .ROUTE .MEDSUPPLY Qty: 1 0RF Rx Instructions: As directed (DME) FreeStyle Garrick 2 Sensor Kit See Rx Instructions .ROUTE .MEDSUPPLY Qty: 2 11RF Rx Instructions: As directed every 2 weeks <Ryan Evans DO - Last Filed: 09/16/22 12:37> Referrals: [facility] [facility] [Provider Group] Tor Villela MD [Primary Care Provider] - <Ryan Evans DO - Last Filed: 09/16/22 12:37> Print Language: Greenlandic <Ryan Evans DO - Last Filed: 09/16/22 12:37>
--- OUTSIDE RECORDS SUMMARY | 2022-09-16 12:48 | XMS_ITS ---
:1970 Author Organization [facility] Address [address] [place] [address] Care Team Providers Name Role Phone Juan M Morel Unavailable Unavailable PROBLEMS Type Condition ICD9-CM [id number] Onset Condition SNOMED Cod e Code Code Dates Status Problem Gastritis K29.70 Active 5850752 Problem Diverticulosis of K57.30 Active 73 4702807 colon Problem Encounter for Z12.11 Active 561502 004 screening for malignant neoplasm of colon Problem Gastroesophageal K21.9 Active 235 000671 reflux disease, unspecified whether esophagitis present Problem Gastroesophageal K21.9 Active reflux ALLERGIES No Known Allergies ENCOUNTERS Encounter Location Date Diagnosis [facility] Outpatient [address] [place] [address] Jan, Colon cancer [place], [place] [id number] Z12.11 ; D iverticulosis of colon K57.30 ; I nternal hemorrhoid K64.8 ; Gastritis K29.70 ; Gastroe sophageal reflux K21.9 and Hiatal hernia K44.[address] [facility] [address] [place] [address] [facility] [address] [place] [address] Sep, [facility] [address] [place] disease, u nspecified whether [address] esophagitis pres ent K21.9 and Encounter fo r screening for malignant ne oplasm of colon Z12.11 IMMUNIZATIONS No Known Immunizations SOCIAL HISTORY Qualifiers Date Current Smoker REASON FOR REFERRAL FUNCTIONAL STATUS PLAN OF CARE Activity Details Pending Test Pathology Future/Pending Procedure UPPER GI ENDOSCOPY 20211009 Future/Pending Procedure COLONOSCOPY 20211009 VITAL SIGNS Weight 205 lbs 2021-10-09 Height 67 in 2021-10-09 BMI 32.10 kg/m2 2021-10-09 Temperature 97.3 degrees Fahrenheit 2021-10-09 Blood pressure systolic 00 mm Hg 2021-10-09 Blood pressure diastolic 00 mm Hg 2021-10-09 MEDICATIONS Medication Instructions Dosage Frequency Start End Duration Statu s Date Date Entresto 30 Active MG Lantus 100 INJECT 40 UNITS 24 Activ e UNIT/ML SUBCUTANEOUSLY AT BEDTIME Spironolactone 25 90 Active MG Jardiance 10 MG TAKE 1 TABLET BY 30 Active MOUTH EVERY MORNING Diagnosis Unavailable Furosemide 80 MG TAKE 1 TABLET BY 30 Active MOUTH EVERY MORNING Corlanor 7.5 MG 30 Active Omeprazole 40 MG 90 Active metFORMIN HCl 500 30 Active MG Carvedilol 25 MG TAKE 2 TABLETS 30 Active BY MOUTH TWICE DAILY IN THE MORNING AND EVENING Digoxin 250 MCG 30 Active NovoLOG FlexPen 30 Active 100 UNIT/ML glipiZIDE XL 10 30 Active MG Sertraline HCl TAKE 2 TABLETS 30 Ac tive 100 MG BY MOUTH EVERY DAY AT BEDTIME Diagnosis Unavailable Loratadine 10 MG 30 Active Albuterol Sulfate INHALE 1 AMPULE 10 Active (2.5 MG/3ML) USING A 0.083% NEBULIZER THREE TIMES DAILY Atorvastatin TAKE 1 TABLET BY 90 Ac tive Calcium 20 MG MOUTH EVERY EVENING Aspirin Low Dose 90 Active 81 MG Trulicity 0.75 28 Active MG/0.5ML Vitamin D3 25 MCG TAKE 1 TABLET BY 90 Active MOUTH EVERY MORNING PROCEDURES Procedure Date Ordered Result Body Site BP SCR NOT PRFRM REC REASON NOS Oct 09, 2021 Pt scrn tbco and id as user Oct 09, 2021 DOC MEDS VERIFIED W/PT OR RE Oct 09, 2021 UPPER GI ENDOSCOPY, BIOPSY January 25, 2022 COLORECTAL CA SCREEN DOC REV Oct 09, 2021 DIAGNOSTIC COLONOSCOPY January 25, 2022 RESULTS Name Result Date Reference Range Glucose, Whole Blood 2022-01-25 Glucose, Whole Blood 186 60-115 Glucose, Whole Blood 2022-01-25 Glucose, Whole Blood 264 60-115 REASON FOR VISIT gerd,screening, gerd,screening, clearance , Patient presents today for a screening colonoscopy Insurance Providers [facility] Health Member Patient Patient Patient Patient Patient Subscriber Subscriber Subscriber Group Insurance Plan Plan Plan Plan ID Relationship Address Phone Name Date of ID Name Date of No Type Insurance Insurance Insurance Coverage to Subscriber Address Phone Name Dates [employer] [phone] [employer] self [place]MINA [id number] [facility] [address] [facility] [address]
[2022-09-16] MEDS: HYDROcodone Bit/Acetam 5/325 TABLET 1 TAB PO (14:29)
== END 2022-09-16 14:43 | disposition home or self-care (01) ==
PROVIDERS: Emergency Provider Student in an Organized Health Care Education/Training Program; PCP Internal Medicine
DX: M25.461 Effusion, right knee (principal); M25.561 Pain in right knee
CPT/HCPCS: 73564; 99283

== ENCOUNTER 2022-09-21 06:09 | Emergency (ER) | payer OTHER, SELFPAY ==
--- NOTE | ~2022-09-21 | XR_ITS ---
EXAMINATION: XR CHEST CLINICAL INFORMATION: Cough and congestion COMPARISON: 07/17/2022 TECHNIQUE: 2 views of the chest were obtained. FINDINGS: Left chest wall pacer is unchanged. The lungs are well expanded. There is no focal consolidation, edema, or effusion. No pneumothorax. The cardiomediastinal silhouette is within normal limits. No acute osseous abnormality. Degenerative changes of the spine. XR/XR chest 2V IMPRESSION: Clear lungs.
[2022-09-21 06:12] VITALS: BP 131/79; PULSE 82; RESP 16; TEMP 36.5; O2SAT 98; BMI 30.9
--- OUTSIDE RECORDS SUMMARY | 2022-09-21 06:38 | XMS_ITS ---
:1970 Author Organization [facility] Address [address] [place] [address] Care Team Providers Name Role Phone Juan M Morel Unavailable Unavailable PROBLEMS Type Condition ICD9-CM [id number] Onset Condition SNOMED Cod e Code Code Dates Status Problem Gastritis K29.70 Active 8275595 Problem Diverticulosis of K57.30 Active 73 5027436 colon Problem Encounter for Z12.11 Active 717915 004 screening for malignant neoplasm of colon Problem Gastroesophageal K21.9 Active 235 417222 reflux disease, unspecified whether esophagitis present Problem Gastroesophageal K21.9 Active reflux ALLERGIES No Known Allergies ENCOUNTERS Encounter Location Date Diagnosis [facility] Outpatient [address] [place] [address] Jan, Colon cancer [place], [place] [id number] Z12.11 ; D iverticulosis of colon K57.30 ; I nternal hemorrhoid K64.8 ; Gastritis K29.70 ; Gastroe sophageal reflux K21.9 and Hiatal hernia K44.[address] [facility] [address] [place] [address] [facility] [address] [place] [address] Sep, [facility] [address] [place] disease, u nspecified whether [address] esophagitis pres ent K21.9 and Encounter fo [...] today for a screening colonoscopy Insurance Providers [facility] Health Member Patient Patient Patient Patient Patient Subscriber Subscriber Subscriber Group Insurance Plan Plan Plan Plan ID Relationship Address Phone Name Date of ID Name Date of No Type Insurance Insurance Insurance Coverage to Subscriber Address Phone Name Dates COMM[employer]WEAL [phone] [employer] self [place]MINA [id number] [facility] [address] [facility] [address]
[2022-09-21 06:43] LABS: COVID-19 Test Negative (Negative); IDNOW Serial# 16C4AD1C; IDNOW Serial# BCCEAD1C; Influenza A Positive (Negative); Influenza B2 Negative (Negative)
[2022-09-21] MEDS: Albuterol/Iprat 2.5/0.5MG 3 ML AMPUL.NEB INHALE (07:20)
[2022-09-21] MEDS: Albuterol Sulfate 2.5 MG, Albuterol Sulfate (0.083%) 2.5 MG 5 MG INHALE (07:21)
[2022-09-21 07:22] VITALS: PULSE 71; RESP 17; O2SAT 96
[2022-09-21] MEDS: predniSONE 20 MG TABLET 40 MG PO (07:31)
--- NOTE | 2022-09-21 07:44 | ED_ITS ---
HPI - URI/Sore Throat General Chief Complaint: Upper Respiratory Symptoms Stated Complaint: Sob Time Seen by Provider: 09/21/22 06:45 Source: patient and student finance advisor Mode of arrival: ambulatory Limitations: no limitations History of Present Illness HPI Narrative: 52-year-old male for came in for evaluation of coughing and shortness of breath with wheezing. Patient is known to have asthma 3 days ago started to have upper respiratory symptoms with generalized body ache and low-grade fever, no exposure to sick contacts. Coughing with clear sputum, no fever chills. Related Data Home Medications Medication Instructions Recorded Confirmed atorvastatin 20 mg tablet 20 mg PO DAILY 08/16/20 07/15/22 cholecalciferol (vitamin D3) 25 25 mcg PO QAM 08/16/20 07/15/22 mcg (1,000 unit) tablet trazodone 150 mg tablet 150 mg PO DAILY 08/16/20 07/15/22 insulin glargine 100 unit/mL 40 unit subcut BEDTIME 03/13/21 07/15/22 subcutaneous solution sertraline 100 mg tablet 100 mg PO DAILY 03/13/21 07/15/22 hydroxyzine pamoate 50 mg capsule 50 mg PO DAILY PRN Anxiety 06/26/21 07/15/22 loratadine 10 mg tablet 10 mg PO DAILY 06/26/21 07/15/22 mirtazapine 45 mg tablet 45 mg PO BEDTIME 06/26/21 07/15/22 omeprazole 40 mg capsule,delayed 40 mg PO DAILY 11/01/21 07/15/22 release pen needle, diabetic 32 gauge x #50 ea 11/01/21 07/15/22 5/32 (Pentips) Previous Rx's Medication Instructions Recorded albuterol sulfate 2.5 mg/0.5 mL 5 mg inhalation Q6H PRN shortness 08/01/20 solution for nebulization of breath or wheezing #30 ea albuterol sulfate 90 mcg/actuation 2 inh inhalation Q4-6H PRN 08/01/20 breath activated powder inhaler shortness of breath or wheezing #1 ea lancets 33 gauge (TRUEplus Lancets) #200 ea 03/13/21 terbinafine HCl 1 % topical cream 1 appl topical BID #15 grams 03/13/21 diphenhydramine HCl 50 mg capsule 50 mg PO TID PRN itching #20 caps 09/06/21 methocarbamol 750 mg tablet 750 mg PO TID PRN muscle spasm #30 09/06/21 tabs fenofibrate micronized 30 mg 30 mg PO DAILY #30 caps 01/31/22 capsule flash glucose scanning reader #1 ea 01/31/22 (FreeStyle Garrick 2 Novinger) flash glucose sensor (FreeStyle #2 ea 01/31/22 Garrick 2 Sensor kit) insulin aspart U-100 100 unit/mL 12 - 20 unit (0.12 - 0.2 mL) 01/31/22 (3 mL) subcutaneous pen subcut TID #15 mL metformin 500 mg tablet 500 mg PO BID #60 tabs 02/05/22 spironolactone 25 mg tablet 25 mg PO QAM #90 tabs 02/08/22 furosemide 80 mg tablet 80 mg PO QAM #90 tabs 03/06/22 ivabradine 7.5 mg tablet (Corlanor) 7.5 mg PO BID #60 tabs 03/06/22 sacubitril 97 mg-valsartan 103 mg 1 tab PO BID #60 tabs 03/06/22 tablet (Entresto) empagliflozin 25 mg tablet 25 mg PO QAM #30 tabs 04/30/22 (Jardiance) blood sugar diagnostic (FreeStyle #150 ea 05/02/22 Lite Strips) acetaminophen 500 mg tablet 1,000 mg PO QID PRN fever or pain 05/16/22 (Tylenol Extra Strength) #14 tabs oxycodone 5 mg tablet 5 mg PO Q6H PRN pain #15 tabs 05/16/22 carvedilol 25 mg tablet See Rx Instructions PO BID #120 06/17/22 tabs loperamide 2 mg capsule 2 mg PO Q4H PRN loose stool #14 07/17/22 (Anti-Diarrheal (loperamide)) caps ondansetron HCl 4 mg tablet 4 mg PO Q6H PRN nausea and 07/17/22 vomiting #10 tabs dulaglutide 0.75 mg/0.5 mL 0.75 mg (0.5 mL) subcut QWEEK #2 mL 08/12/22 subcutaneous pen injector ([facility]) oxycodone 5 mg tablet 5 mg PO Q8H PRN pain #7 tabs 08/22/22 prednisone 20 mg tablet 40 mg PO DAILY #10 tabs 08/22/22 digoxin 250 mcg (0.25 mg) tablet 250 mcg PO QAM #90 tabs 09/16/22 albuterol sulfate 90 mcg/actuation 1 inh inhalation QID PRN shortness 09/21/22 aerosol inhaler of breath or wheezing #8.5 grams dextromethorphan 5 mg-guaifenesin 20 ml PO Q4-6H PRN cough #118 mL 09/21/22 50 mg/5 mL oral liquid (Robitussin Cough-Chest Congestion DM) prednisone 20 mg tablet 20 mg PO BID #10 tabs 09/21/22 Allergies Allergy/AdvReac Type Severity Reaction Status Date / Time No Known Allergies Allergy Verified 08/21/22 23:15 [No Known Allergies*] Review of Systems Review of Systems: All other systems are reviewed and are negative Constitutional: Reports as per HPI and Reports no additional constitutional complaints Eyes: Reports as per HPI and Reports no additional eye complaints Reports system reviewed and no additional complaints, except as documented Cardiovascular: Reports as per HPI and Reports no additional cardiovascular complaints Respiratory: Reports as per HPI and Reports no additional respiratory complaints Gastrointestinal: Reports as per HPI and Reports no additional gastrointestinal complaints Genitourinary: Reports no additional female genitourinary complaints Musculoskeletal: Reports no additional musculoskeletal complaints Skin/Breast: Reports system reviewed and no additional complaints, except as docu Psychiatric: Reports no additional psychiatric complaints Endocrine: Reports no additional endocrine complaints Hematologic/Lymphatic: Reports no additional hematologic/lymphatic complaints Allergic/Immunologic: Reports no additional allergic/immunologic complaints Reports system reviewed and no additional complaints, except as documented and Reports Abnormal speech present [facility] Past Medical History Medical History Asthma Diabetes GERD (gastroesophageal reflux disease) Heart failure with reduced ejection fraction High cholesterol HLD (hyperlipidemia) HTN (hypertension) Implantable cardioverter-defibrillator lead failure Nonischemic cardiomyopathy Obesity due to excess calories NANO (obstructive sleep apnea) Pacemaker Type 2 diabetes mellitus with chronic kidney disease Surgical History History of circumcision History of permanent cardiac pacemaker placement (~2008) History of tonsillectomy Hx of cardiac cath Hx of transesophageal echocardiography (DAWN) for monitoring Family History Family History Father HTN (hypertension) Diabetes CVD (cardiovascular disease) Hypercholesterolemia Mother Hypercholesterolemia HTN (hypertension) Diabetes Social History Social History Household Members: Significant Other Household Members Other:: SO:Thu Alcohol intake: never Patient Tobacco Use Status: Never used Tobacco Tobacco use type: Cigarette Smoked in Last 30 Days: Yes Use of substances other than those prescribed or required for medical reasons: No Advance Directives: No Advance Directives Information Provided: No Physical Exam Vital Signs: Vital Signs: Last Vital Signs Temp 97.7 F 09/21/22 06:12 Pulse 71 09/21/22 07:22 Resp 17 09/21/22 07:22 BP 131/79 09/21/22 06:12 Pulse Ox 98 09/21/22 06:12 O2 Del Method 09/21/22 06:12 BMI result Body Mass Index 30.9 Vital signs have been reviewed as appeared to be correct. Blood pressure normal. Heart rate normal. Respiration rate normal. Temperature normal. Oxygen saturation normal. Appearance: Alert. Oriented X3. No acute distress. Head: Normal external exam. Normocephalic. Atraumatic. No Cox signs noted. No raccoon eyes noted Eyes: PERRLA. EOMI. Conjunctiva and sclera normal. Eyelids normal. ENT: TM's Normal. Pharynx normal. Uvula midline. Moist mucous membranes. No trismus noted. No drooling noted. No muffled voice noted. Neck: Normal inspection. Neck supple. FROM. No adenopathy. Thyroid Normal. No meningeal signs. No neck mass noted. CVS: Normal heart rate and rhythm. Heart sound normal. No murmurs noted. Pulses normal throughout. Respiratory: No respiratory distress. Painless inspiration. Breath sounds normal. Expiratory wheezing with prolonged expiration. Chest nontender. No accessory muscle usage noted or decreased air movement noted. Abdomen: Soft and nontender. Bowel sounds normal in all 4 quadrants. No distention noted. No organomegaly noted. No visible injury noted. Back: No CVA tenderness. Full range of motion noted. Skin: Skin warm and dry. Normal skin color. Normal skin turgor. No rashes/lesions/lacerations noted. Extremities: No lower extremity edema. Extremities exhibit normal range of motion. Extremities nontender. Neuro: Oriented X 3. Cranial nerve exam: II-XII are grossly intact No motor deficit. No sensory deficit. Reflexes normal. Course Course Course Narrative: 52-year-old male with history of asthma came in with upper respiratory symptoms patient tested positive for influenza A, patient's upper respiratory symptoms has improved 3 days ago patient will not benefit from Tamiflu at this point, improvement with bronchodilator and prednisone and coughing medication. Medications Administered Discontinued Medications Generic Name Dose Route Start Last Admin Trade Name Freq PRN Reason Stop Dose Admin Albuterol Sulfate 2.5 mg/ 5 mg 09/21/22 07:01 09/21/22 07:21 Albuterol Sulfate 2.5 mg INHALE 09/21/22 07:02 5 mg ONCE ONE Administration Albuterol/Ipratropium 3 ml 09/21/22 07:01 09/21/22 07:20 Albuterol/Iprat 2.5/0.5mg 3 Ml Ampul.Neb INHALE 09/21/22 07:02 3 ml ONCE ONE Administration Prednisone 40 mg 09/21/22 07:01 09/21/22 07:31 Prednisone 20 Mg Tablet PO 09/21/22 07:02 40 mg ONCE ONE Administration MDM - URI/Sore Throat Lab Data Attestation: I reviewed the patient's lab results. Labs: Lab Results 09/21/22 09/21/22 Range/Units 06:15 06:15 COVID-19 (CHARLES) Negative (Negative) COVID-19 Clin Com See Note Influenza Type A (NURY) Positive A (Negative) Influenza Type B (NURY) Negative (Negative) Influenza A & B Note See Note Imaging Data Chest x-ray: Attestation: I personally reviewed and interpreted this imaging study as follows: Radiologist's impression: No acute pathology. Discharge Plan Discharge Clinical Impression: Influenza A, Asthma exacerbation Patient Disposition: Home, Self-Care Instructions: Asthma (ED) Prescriptions: New albuterol sulfate 90 mcg/actuation HFA aerosol inhaler 1 inh inhalation QID PRN (Reason: shortness of breath or wheezing) Qty: 8.5 0RF prednisone 20 mg tablet 20 mg PO BID Qty: 10 0RF Robitussin Cough-Chest Satnam DM 5-50 mg/5 mL liquid 20 ml PO Q4-6H PRN (Reason: cough) Qty: 118 0RF No Action metformin 500 mg tablet 500 mg PO BID Qty: 60 6RF spironolactone 25 mg tablet 25 mg PO QAM Qty: 90 2RF Entresto 97-103 mg tablet 1 tab PO BID Qty: 60 5RF Corlanor 7.5 mg tablet 7.5 mg PO BID Qty: 60 5RF furosemide 80 mg tablet 80 mg PO QAM Qty: 90 1RF Jardiance 25 mg tablet 25 mg PO QAM Qty: 30 6RF (DME) FreeStyle Lite Strips Strip See Rx Instructions .ROUTE .MEDSUPPLY Qty: 150 11RF Rx Instructions: As directed four times a day carvedilol 25 mg tablet See Rx Instructions PO BID Qty: 120 3RF Rx Instructions: 25mg 2 tablets PO 2 times a day; Trulicity 0.75 mg/0.5 mL pen injector 0.75 mg subcut QWEEK Qty: 2 2RF digoxin 250 mcg (0.25 mg) tablet 250 mcg PO QAM Qty: 90 3RF albuterol sulfate 90 mcg/actuation aerosol powdr breath activated 2 inh inhalation Q4-6H PRN (Reason: shortness of breath or wheezing) Qty: 1 0RF albuterol sulfate 2.5 mg/0.5 mL solution for nebulization 5 mg inhalation Q6H PRN (Reason: shortness of breath or wheezing) Qty: 30 0RF oxycodone 5 mg tablet 5 mg PO Q6H PRN (Reason: pain) Qty: 15 0RF Rx Instructions: Partial Fill upon patient request. acetaminophen [Tylenol Extra Strength] 500 mg tablet 1,000 mg PO QID PRN (Reason: fever or pain) Qty: 14 0RF loperamide [Anti-Diarrheal (loperamide)] 2 mg capsule 2 mg PO Q4H PRN (Reason: loose stool) Qty: 14 0RF Rx Instructions: administer after each loose stool until symptoms controlled; do not exceed 8 mg per 24 hrs ondansetron HCl 4 mg tablet 4 mg PO Q6H PRN (Reason: nausea and vomiting) Qty: 10 0RF oxycodone 5 mg tablet 5 mg PO Q8H PRN (Reason: pain) Qty: 7 0RF Rx Instructions: Partial Fill upon patient request. prednisone 20 mg tablet 40 mg PO DAILY Qty: 10 0RF diphenhydramine HCl 50 mg capsule 50 mg PO TID PRN (Reason: itching) Qty: 20 0RF methocarbamol 750 mg tablet 750 mg PO TID PRN (Reason: muscle spasm) Qty: 30 0RF atorvastatin 20 mg tablet 20 mg PO DAILY cholecalciferol (vitamin D3) 25 mcg (1,000 unit) tablet 25 mcg PO QAM trazodone 150 mg tablet 150 mg PO DAILY sertraline 100 mg tablet 100 mg PO DAILY Lantus U-100 Insulin 100 unit/mL solution 40 unit subcut BEDTIME (DME) lancets [TRUEplus Lancets] 33 gauge misc See Rx Instructions .ROUTE .MEDSUPPLY Qty: 200 11RF Rx Instructions: Four times a day terbinafine HCl 1 % cream 1 appl topical BID Qty: 15 1RF Rx Instructions: Use for 10 days loratadine 10 mg tablet 10 mg PO DAILY mirtazapine 45 mg tablet 45 mg PO BEDTIME hydroxyzine pamoate 50 mg capsule 50 mg PO DAILY PRN (Reason: Anxiety) omeprazole 40 mg capsule,delayed release(DR/EC) 40 mg PO DAILY (DME) pen needle, diabetic [Pentips] 32 gauge x 5/32 needle See Rx Instructions .ROUTE TID Qty: 50 Rx Instructions: As directed fenofibrate micronized 30 mg capsule 30 mg PO DAILY Qty: 30 11RF insulin aspart U-100 100 unit/mL (3 mL) insulin pen 12 - 20 unit subcut TID Qty: 15 6RF (DME) FreeStyle Garrick 2 Novinger Misc See Rx Instructions .ROUTE .MEDSUPPLY Qty: 1 0RF Rx Instructions: As directed (DME) FreeStyle Garrick 2 Sensor Kit See Rx Instructions .ROUTE .MEDSUPPLY Qty: 2 11RF Rx Instructions: As directed every 2 weeks Referrals: Tor Villela MD [Primary Care Provider] -
[2022-09-21 08:03] VITALS: PULSE 95; RESP 15; O2SAT 96
[2022-09-21] MEDS: guaiFEN/Codeine SF 200/20/10ML 10 ML LIQUID PO (08:04)
== END 2022-09-21 09:10 | disposition home or self-care (01) ==
PROVIDERS: Emergency Provider Emergency Medicine; PCP Internal Medicine
DX: J11.1 Influenza due to unidentified influenza virus with other respiratory manifestations (principal); J45.901 Unspecified asthma with (acute) exacerbation; R50.9 Fever, unspecified; Z20.822 Contact with and (suspected) exposure to COVID-19
CPT/HCPCS: 71046; 87502; 87635; 99284

== ENCOUNTER 2022-09-26 07:42 | Outpatient (REF) | payer OTHER, SELFPAY ==
--- NOTE | ~2022-09-26 | XR_ITS ---
EXAMINATION: Knee x-ray CLINICAL INFORMATION: Knee pain COMPARISON: Previous x-ray of the right knee August 2022 TECHNIQUE: AP bilateral standing view of the knees and sunrise view of the right knee was obtained. FINDINGS: Bone alignment is normal. No fracture or dislocation. Joint spaces are normal. Soft tissue calcification or ossification that projects adjacent to the medial patellar facet on the sunrise view likely corresponds to a soft tissue calcification adjacent to the inferior patellar tendon when compared with lateral x-ray August 2022. XR/XR knee RT 1V IMPRESSION: Unremarkable exam.
--- NOTE | ~2022-09-26 | XR_ITS ---
EXAMINATION: Knee x-ray CLINICAL INFORMATION: Knee pain COMPARISON: Previous x-ray of the right knee August 2022 TECHNIQUE: AP bilateral standing view of the knees and sunrise view of the right knee was obtained. FINDINGS: Bone alignment is normal. No fracture or dislocation. Joint spaces are normal. Soft tissue calcification or ossification that projects adjacent to the medial patellar facet on the sunrise view likely corresponds to a soft tissue calcification adjacent to the inferior patellar tendon when compared with lateral x-ray August 2022. XR/XR knee standing BI IMPRESSION: Unremarkable exam.
== END 2022-09-26 07:43 | disposition home or self-care (01) ==
LOC: HO.HOSX 07:42
PROVIDERS: Visit Provider Physician Assistant
DX: M17.11 Unilateral primary osteoarthritis, right knee (principal); E11.9 Type 2 diabetes mellitus without complications
CPT/HCPCS: 20610; 73560; 73565; 99202; 99212; J1020

== ENCOUNTER → 2022-10-16 12:33 | Outpatient (BNVA) | payer OTHER, SELFPAY | PROVIDERS: PCP Internal Medicine; Visit Provider Internal Medicine Cardiovascular Disease | DX: T82.110A Breakdown (mechanical) of cardiac electrode, initial encounter (principal); I50.20 Unspecified systolic (congestive) heart failure; Z45.02 Encounter for adjustment and management of automatic implantable cardiac defibrillator | CPT/HCPCS: 99212 ==

== ENCOUNTER 2023-01-15 16:58 | Outpatient (REF) | payer OTHER, SELFPAY ==
[2023-01-15 18:33] LABS: Anion Gap 12 (12-20); Blood Urea Nitrogen 12 mg/dL (9-16); Calcium 9.5 mg/dL (8.4-10.2); Carbon Dioxide 28 mmol/L (22-29); Chloride 104 mmol/L (96-108); Estimated Glomerular Filt Rate 59; Potassium 4.4 mmol/L (3.3-5.1); Sodium 140 mmol/L (135-145)
== END 2023-01-15 16:59 | disposition home or self-care (01) ==
LOC: HO.LAB 16:58
PROVIDERS: PCP Internal Medicine; Visit Provider Internal Medicine Nephrology
DX: I12.9 Hypertensive chronic kidney disease with stage 1 through stage 4 chronic kidney disease, or unspecified chronic kidney disease (principal); N18.32 Chronic kidney disease, stage 3b
CPT/HCPCS: 36415; 80051; 82310; 82565; 84520

== ENCOUNTER 2023-01-17 10:00 | Outpatient (RCR) | payer OTHER, SELFPAY ==
--- NOTE | 2022-11-08 13:08 | MHC.PT.EP ---
[facility] [place] Office [place] Office [place] Office [address] [phone] F: [phone] F: [phone] F: [phone] F: [phone] Physical Therapy Plan of Care Date of Evaluation: Date of Surgery: Diagnosis: R knee internal derangement Assessment: Patient is a 52 y.o. male who is referred to PT by Destini Champion with Dx of R knee internal derangement. PT diagnosis is unclear due to him being unable to do or tolerate most palpation and movement with increased muscle guarding and also some resistance to education about proper use of cane in opposite hand to reduce his compensation. He also requests pain medication but I let him know we do not precribe that in PT, will need to contact ortho or PCP. Patient impairments include pain, weakness, and limited ROM. Patient current functional limitations are walking, sit/stand low surfaces, ascend/descend stairs, dressing or bathing without assist, and sleeping through the night. Patient will benefit from skilled PT to address aforementioned impairments and functional limitations to meet established goals. Frequency and Duration: The patient will be seen 1x/week for 4 weeks Short Term Goals: 2 weeks Patient demonstrates consistency and independence with HEP to self manage symptoms. Patient is able to demonstrate improves gait pattern with cane in L hand with step through pattern to reduce compensatory patterns. Longterm Goals: 4 weeks Patient presents with increased R knee flexion 110 degrees to perform sit to stand from low surfaces. Patient presents with increased R extension 4-/5 to be able to ascend/descend 3 steps with cane. Treatment Plan: Modalities to reduce pain, spasms and effusion. Manual therapy to restore motion and function. Therapeutic exercise to improve strength and flexibility. Neuromuscular re-education for posture and balance. Therapeutic activities to return to functional activities of daily living. Electronically signed by: Chloe Sevilla, PT, DPT Please sign and return to therapist. Thank you for your referral.
--- NOTE | 2023-01-22 17:05 | MHC.PT.DC ---
[facility] [place] Office [place] Office [place] Office [address] Kevin Garibay [address] [phone] F: [phone] F: [phone] F: [phone] F: [phone] Physical Therapy Discharge Report Diagnosis: R knee internal derangement Date of Surgery: Date of Evaluation: 11/08/22 Date of Discharge: 01/17/23 Treatments to Date: 9 Cancellations to Date: 1 No Shows to Date: 2 Discharge Status: Improved Function Independent with HEP Discharge Summary: Pt is I with HEP , with significant improvement LEFS score. 7 to 22 out of 80. He is discharged from PT at this time. Electronically signed by: Chloe Sevilla, PT, DPT Please sign and return to therapist. Thank you for your referral.
== END 2023-01-22 17:06 | disposition home or self-care (01) ==
LOC: HO.PT 10:00
PROVIDERS: PCP Internal Medicine; Visit Provider Physician Assistant
DX: M23.91 Unspecified internal derangement of right knee (principal)
CPT/HCPCS: 97035; 97110; 97116; 97140; 97162; 97530

== ENCOUNTER → 2023-02-27 13:24 | Outpatient (BNVA) | payer OTHER, MEDICAID, SELFPAY | PROVIDERS: PCP Internal Medicine; Visit Provider Physician Assistant | DX: M17.11 Unilateral primary osteoarthritis, right knee (principal); E11.9 Type 2 diabetes mellitus without complications | CPT/HCPCS: 20610; 99212; J1020 ==

== ENCOUNTER 2023-04-09 13:00 | Outpatient (RCR) | payer OTHER, SELFPAY ==
--- NOTE | 2023-04-04 12:39 | MHC.PT.EP ---
[facility] [place] Office [place] Office [place] Office [address] Traci Garibay [address] [phone] F: [phone] F: [phone] F: [phone] F: [phone] Physical Therapy Plan of Care Date of Evaluation: Date of Surgery: NA Diagnosis: INTERNAL DERANGEMENT R KNEE Assessment: Pt 52 YO M REFERRED TO PT FROM ORTHO ([facility]) WITH INTERNAL DERANGEMENT R KNEE. Pt REPORTS SOME PAIN IN L KNEE ALSO. Pt WAS SEEN IN PT FROM OCT TO DECEMBER FOR SAME DIAGNOSIS WITH SOME RELIEF BUT HAS NOT CONTINUED WITH HOME PROGRAM. Pt REPORTS HAS TRIED TO GO TO GYM BUT UNABLE TO DO MUCH (RECOMMENDED POOL TRIAL). PRESENTS TO PT WITH SLIGHT DECREASE END RANGE OF R KNEE FLEXION (WITH PAIN) AND SOME PATELLAR MALALIGNMENT. SHOULD BENEFIT FROM PT TO ADDRESS THESE ISSUES WITH HOME PROGRAM AND KT TRIAL Frequency and Duration: The patient will be seen 2X/WK X4 WKS Short Term Goals: 1.INCREASED AWARENESS KNEE CARE 2. I KT IF INDICATED Residential Goals: 1. I HEP WITH DC EX PLAN 2. DECREASED KNEE PAIN AT LEAST 50% WITH ADLS 3. R KNEE FLEX TO 135 WITH LESS END RANGE PAIN Treatment Plan: Modalities to reduce pain, spasms and effusion. Manual therapy to restore motion and function. Therapeutic exercise to improve strength and flexibility. Neuromuscular re-education for posture and balance. Therapeutic activities to return to functional activities of daily living. Electronically signed by: JESU BAILEY PT Please sign and return to therapist. Thank you for your referral.
--- NOTE | 2023-05-20 16:06 | MHC.PT.DC ---
[facility] [place] Office [place] Office [place] Office [address] Kevin Garibay [address] [phone] F: [phone] F: [phone] F: [phone] F: [phone] Physical Therapy Discharge Report Diagnosis: INTERNAL DERANGEMENT R KNEE Date of Surgery: NA Date of Evaluation: 04/04/23 Date of Discharge: 05/20/23 Treatments to Date: 2 Cancellations to Date: No Shows to Date: Discharge Status: Visit Non-compliance Discharge Summary: Pt SEEN FOR INIT EVAL AND 1 VISIT. PER ASSESSMENT AT LAST APPT BY KARLI GARZA MEDICAL PRACTICE ADMINISTRATOR ON 04/09 pt encourage to continue SLR at home. Today pt was falling to sleep between ex. PER INITIAL ASSESSMENT Pt 52 YO M REFERRED TO PT FROM ORTHO ([facility]) WITH INTERNAL DERANGEMENT R KNEE. Pt REPORTS SOME PAIN IN L KNEE ALSO. Pt WAS SEEN IN PT FROM OCT TO DECEMBER FOR SAME DIAGNOSIS WITH SOME RELIEF BUT HAS NOT CONTINUED WITH HOME PROGRAM. Pt REPORTS HAS TRIED TO GO TO GYM BUT UNABLE TO DO MUCH (RECOMMENDED POOL TRIAL). PRESENTS TO PT WITH SLIGHT DECREASE END RANGE OF R KNEE FLEXION (WITH PAIN) AND SOME PATELLAR MALALIGNMENT. SHOULD BENEFIT FROM PT TO ADDRESS THESE ISSUES WITH HOME PROGRAM AND KT TRIAL Electronically signed by: JESU BAILEY PT Please sign and return to therapist. Thank you for your referral.
== END 2023-05-20 16:07 | disposition home or self-care (01) ==
LOC: HO.PT 13:00
PROVIDERS: PCP Internal Medicine; Visit Provider Physician Assistant
DX: M23.91 Unspecified internal derangement of right knee (principal)
CPT/HCPCS: 97110; 97161; 97535

== ENCOUNTER 2023-05-12 12:35 | Outpatient (AMB) | payer OTHER, SELFPAY ==
[2023-05-12 12:49] VITALS: BP 116/70; PULSE 64; BMI 30.5
--- NOTE | 2023-05-12 12:49 | A.OFFVIS_ITS ---
Intake Vital Signs 05/12/23 12:49 Height 5 ft 8 in Weight 200 lb 9.93 oz BMI 30.5 BP 116/70 Blood Pressure Location Lt brachial Position Sitting Pulse 64 Intake Visit Reasons: pacer check then follow-up Intake Note: Follow-up after [facility] check feeling good Residential Field Manager Required: Yes Residential Field Manager Name: Katharina de oliveira Roller Skate Assembler: Roller Skate Assembler Present Accompanied by: Spouse Allergies No Known Allergies [No Known Allergies*] Allergy (Verified 02/27/23 13:37) Medication List - Last Reconciled 05/12/23 by Jose Nielson MD acetaminophen (Tylenol Extra Strength) 1,000 mg (2 x 500 mg) PO QID PRN albuterol sulfate 90 mcg/actuation 2 inhalations inhalation Q4-6H PRN albuterol sulfate 5 mg inhalation Q6H PRN albuterol sulfate 90 mcg/actuation 1 inh inhalation QID PRN aspirin 81 mg PO DAILY atorvastatin 20 mg PO DAILY blood sugar diagnostic (FreeStyle Lite Strips) As directed four times a day carvedilol 50 mg (2 x 25 mg) PO BID 30 days cholecalciferol (vitamin D3) 25 mcg PO QAM dextromethorphan polistirex ER (12-Hour Cough Relief) 10 mL PO Q12H PRN dextromethorphan-guaifenesin 5-50 mg/5 mL (Robitussin Cough-Chest Congestion DM) 20 mL PO Q4-6H PRN digoxin 250 mcg PO QAM diphenhydramine HCl 50 mg PO TID PRN dulaglutide (Trulicity) 0.75 mg (0.5 mL) subcut QWEEK empagliflozin (Jardiance) 25 mg PO QAM fenofibrate micronized 30 mg PO DAILY flash glucose scanning reader (FAGUOStyle Garrick 2 [place]) As directed flash glucose sensor (FreeStyle Garrick 2 Sensor kit) As directed every 2 weeks furosemide 80 mg PO QAM hydroxyzine pamoate 50 mg PO DAILY PRN insulin aspart U-100 12 - 20 units (0.12 - 0.2 mL) subcut TID insulin glargine 40 units subcut BEDTIME ivabradine (Corlanor) 7.5 mg PO BID lancets (TRUEplus Lancets) Four times a day loperamide (Anti-Diarrheal (loperamide)) 2 mg PO Q4H PRN loratadine 10 mg PO DAILY metformin 500 mg PO BID methocarbamol 750 mg PO TID PRN mirtazapine 45 mg PO BEDTIME omeprazole 40 mg PO DAILY ondansetron HCl 4 mg PO Q6H PRN oxycodone 5 mg PO Q6H PRN pen needle, diabetic ([place]) As directed sacubitril-valsartan 97-103 mg (Entresto) 1 tab PO BID sertraline 100 mg PO DAILY spironolactone 25 mg PO QAM terbinafine HCl 1% 1 appl topical BID trazodone 150 mg PO DAILY HPI HPI Comments History of Present Illness Details Ian comes for follow-up. History was obtained with help of local superintendent. Patient says he is doing very well. He has had no worsening symptoms of heart failure. Maintains high level of activity level and NYHA class 1. Takes all his medications. Denies orthopnea, PND, leg edema, abdominal distension. Denies palpitations, lightheadedness, syncope, ICD discharge. [facility] Medical History Asthma Diabetes GERD (gastroesophageal reflux disease) Heart failure with reduced ejection fraction High cholesterol HLD (hyperlipidemia) HTN (hypertension) Implantable cardioverter-defibrillator lead failure Nonischemic cardiomyopathy Obesity due to excess calories NANO (obstructive sleep apnea) Pacemaker Type 2 diabetes mellitus with chronic kidney disease Surgical History History of circumcision History of permanent cardiac pacemaker placement (~2008) History of tonsillectomy Hx of cardiac cath Hx of transesophageal echocardiography (DAWN) for monitoring Family History Father HTN (hypertension) Diabetes CVD (cardiovascular disease) Hypercholesterolemia Mother Hypercholesterolemia HTN (hypertension) Diabetes Social History Household Members: Significant Other Household Members Other:: SO:Thu Alcohol intake: never Patient Tobacco Use Status: Never used Tobacco Tobacco use type: Cigarette Review of Systems Const Denies chills, Denies fatigue, Denies fever(s), Denies frequent falls, Denies weakness, Denies weight gain and Denies weight loss ENT Denies dizziness Card Denies chest pain, Denies leg edema, Denies lightheadedness, Denies palpitations, Denies dyspnea, Denies dyspnea on exertion, Denies orthopnea and Denies other (loss of consciousness) Resp Denies cough, Denies dyspnea and Denies dyspnea on exertion GI Denies hematochezia and Denies change in stool character Musc Denies abnormal gait, Denies muscle weakness, Denies numbness, Denies radiating pain into limb and Denies tingling Neuro Denies abnormal gait, Denies dizziness, Denies frequent falls, Denies numbness, Denies tingling and Denies weakness Endo Denies fatigue and Denies palpitations Physical Exam Vital Signs: Last Vital Signs Pulse 64 05/12/23 12:49 BP 116/70 05/12/23 12:49 BMI result Body Mass Index 30.5 Const General: cooperative, comfortable, no acute distress, alert and awake Nutritional Appearance: obese Orientation/consciousness: patient oriented x3 Limitations: no limitations Neck Neck: Yes trachea midline, Yes supple and Yes no JVD Chest Chest palpation & inspection: normal inspection of the chest Resp Effort & Inspection: normal respiratory effort Auscultation: clear to auscultation bilaterally Cardio Jugular venous distension: no JVD Palpation: abnormal PMI displaced PMI Rate: regular rate Rhythm: regular rhythm Heart sounds: S1 normal heart sound present and S2 normal heart sound present GI Auscultation: normal bowel sounds Skin General skin exam: no rashes or lesions noted Neuro General: patient oriented x3 and no focal motor deficits Extrem General: Yes no clubbing, cyanosis or edema Psych Appearance: grossly normal Office Procedures Cardiac Device Check Cardiac Device Check Details: Biventricular [employer] ICD with LV lead failure. Programmed in VVI at 40 beats per minute. RV pacing thresholds are excellent. RA and RV pacing lead impedance and shock lead impedance are within acceptable limits. Battery life is not 6 years. Some nonsustained ventricular tachycardia noted. Heart failure monitoring would be programmed [id number] Cardiac Device Check, multi lead implantable defibrillator Procedure code (CPT) selection complete Assessment & Plan Assessment & Plan (1) Heart failure with reduced ejection fraction: Code(s): I50.20 - Unspecified systolic (congestive) heart failure Plan: Heart failure with reduced ejection fraction with much improved LV ejection fraction 40-45% with much improved symptoms with NYHA class 1 symptoms. Currently still follows with advanced heart failure clinic at [facility] on annual basis. Continue current neurohormonal modulation with Entresto, carvedilol, Jardiance, spironolactone and Corlanor therapy. Continue current diuretic regimen. Daily weight monitoring and avoidance of salt loading was discussed. Continue aggressive blood pressure control. Encouraged to continue to participate in physical activity as tolerated and participate in weight loss program. He has done extremely well with medical management despite no DIRECTOR ECONOMIC. Follow-up echocardiogram in 1 month's time. Advised to call me with any worsening symptoms. (2) Biventricular ICD (implantable cardioverter-defibrillator) in place: Code(s): Z95.810 - Presence of automatic (implantable) cardiac defibrillator Plan: Biventricular ICD in place with failed LV pacing lead. Has had no change in his symptomatology since loss of cardiac resynchronization therapy. Will continue monitor clinically. If there is any worsening symptoms may require earlier reoperation and upgrade to cardiac resynchronization therapy with ICD. This was discussed with him. Will follow with him in the clinic in 6 months time. Orders: Orders CA echo transthoracic complete 1 Month I42.8 - Other cardiomyopathies Coding Level of Care Code Est Pt Level 4 (69329) Diagnoses Heart failure with reduced ejection fraction I50.20 Biventricular ICD (implantable cardioverter-defibrillator) in place Z95.810 CPT Codes Cardiac Device Check - Cardiac Device 6: [id number] Cardiac Device Check, multi lead implantable defibrillator ([id number])
== END 2023-05-12 13:24 | disposition home or self-care (01) ==
PROVIDERS: PCP Internal Medicine; Visit Provider Internal Medicine Cardiovascular Disease
DX: I50.20 Unspecified systolic (congestive) heart failure (principal); Z95.810 Presence of automatic (implantable) cardiac defibrillator
CPT/HCPCS: 93284; 99214

== ENCOUNTER → 2023-05-12 12:35 | Outpatient (BNVA) | payer OTHER, SELFPAY | PROVIDERS: PCP Internal Medicine; Visit Provider Internal Medicine Cardiovascular Disease | DX: I50.20 Unspecified systolic (congestive) heart failure (principal); Z45.02 Encounter for adjustment and management of automatic implantable cardiac defibrillator; Z79.899 Other long term (current) drug therapy | CPT/HCPCS: 99212 ==

== ENCOUNTER → 2023-05-20 23:59 | Outpatient (BNV) | payer OTHER, SELFPAY ==
--- NOTE | 2023-05-28 14:58 | A.OFFVIS_ITS ---
Intake Intake Visit Reasons: Remote ICD Check- I Do Now I Don't Allergies No Known Allergies [No Known Allergies*] Allergy (Verified 02/27/23 13:37) PFSH Medical History Asthma Diabetes GERD (gastroesophageal reflux disease) Heart failure with reduced ejection fraction High cholesterol HLD (hyperlipidemia) HTN (hypertension) Implantable cardioverter-defibrillator lead failure Nonischemic cardiomyopathy Obesity due to excess calories NANO (obstructive sleep apnea) Pacemaker Type 2 diabetes mellitus with chronic kidney disease Surgical History History of circumcision History of permanent cardiac pacemaker placement (~2008) History of tonsillectomy Hx of cardiac cath Hx of transesophageal echocardiography (DAWN) for monitoring Family History Father HTN (hypertension) Diabetes CVD (cardiovascular disease) Hypercholesterolemia Mother Hypercholesterolemia HTN (hypertension) Diabetes Social History Household Members: Significant Other Household Members Other:: SO:Thu Alcohol intake: never Patient Tobacco Use Status: Never used Tobacco Tobacco use type: Cigarette Office Procedures Cardiac Device Check Cardiac Device Check Details: Remote ICD report generated 05/20/2023. ICD function is adequate. [id number] Cardiac Interrogation, implant defibrillator w/interim Procedure code (CPT) selection complete Coding Level of Care Code Procedure Only Diagnoses CPT Codes Cardiac Device Check - Cardiac Device 13: [id number] Cardiac Interrogation, im plant defibrillator w/interim ([id number])
== END ==
PROVIDERS: PCP Internal Medicine; Visit Provider Internal Medicine Cardiovascular Disease
DX: I42.8 Other cardiomyopathies (principal); Z95.810 Presence of automatic (implantable) cardiac defibrillator
CPT/HCPCS: 93295

== ENCOUNTER 2023-06-04 10:41 | Outpatient (REF) | payer OTHER, SELFPAY ==
[2023-06-04 11:56] LABS: Cholesterol 192 mg/dL; HDL Cholesterol 31 mg/dL; Triglycerides 1078 mg/dL
[2023-06-04 11:57] LABS: Alanine Aminotransferase 27 U/L (0-40); Albumin Level 4.3 g/dL (3.5-5.0); Alkaline Phosphatase 108 U/L (39-117); Anion Gap 17 (12-20); Aspartate Amino Transferase 18 U/L (5-37); Bilirubin Direct 0.1 mg/dL (0.0-0.5); Bilirubin Total 0.6 mg/dL (0.0-1.0); Blood Urea Nitrogen 27 mg/dL (9-16); Calcium 10.2 mg/dL (8.4-10.2); Carbon Dioxide 23 mmol/L (22-29); Chloride 101 mmol/L (96-108); Estimated Glomerular Filt Rate 43; Glucose Random 328 mg/dL (60-115); Potassium 4.5 mmol/L (3.3-5.1); Sodium 136 mmol/L (135-145); Total Protein 7.9 g/dL (6.5-8.0)
[2023-06-04 12:12] LABS: Reflex LDLD? Yes
[2023-06-06 09:03] LABS: LDL Cholesterol Direct 46 mg/dL (<100)
== END 2023-06-04 10:42 | disposition home or self-care (01) ==
LOC: HO.LAB 10:41
PROVIDERS: PCP Internal Medicine; Visit Provider Internal Medicine
DX: E78.2 Mixed hyperlipidemia (principal)
CPT/HCPCS: 36415; 80048; 80061; 80076; 83721

== ENCOUNTER 2023-06-05 13:51 | Outpatient (REF) | payer OTHER, SELFPAY ==
[2023-06-05 16:08] LABS: Anion Gap 16 (12-20); Blood Urea Nitrogen 33 mg/dL (9-16); Carbon Dioxide 25 mmol/L (22-29); Chloride 99 mmol/L (96-108); Estimated Glomerular Filt Rate 33; Potassium 3.9 mmol/L (3.3-5.1); Sodium 136 mmol/L (135-145)
== END 2023-06-05 13:52 | disposition home or self-care (01) ==
LOC: HO.LAB 13:51
PROVIDERS: PCP Internal Medicine; Visit Provider Internal Medicine Nephrology
DX: I12.9 Hypertensive chronic kidney disease with stage 1 through stage 4 chronic kidney disease, or unspecified chronic kidney disease (principal); N18.32 Chronic kidney disease, stage 3b
CPT/HCPCS: 36415; 80051; 82310; 82565; 84520

== ENCOUNTER → 2023-06-12 09:31 | Outpatient (REF) | payer OTHER, SELFPAY ==
--- NOTE | 2023-06-12 09:33 | CA_ITS ---
Transthoracic Echocardiogram Patient (Last, First, Middle): Ian Hernandez, Gender: Male Date of : 1970 Age: 52 Procedure Date: 06/12/2023 Procedure Type: Transthoracic Echocardiogram Location: OP Height: 170.18 cm Weight: 90.72 kg BSA: 2.02 m2 Heart Rate: 64 bpm BP: 85 / 55 mmHg Fashion Intern: CARINA Referring MD: Jose Nielson MD Lumber Marker: Jose Nielson MD Symptoms: I42.8 - Other cardiomyopathies Study Quality: Fair ECG Rhythm: Arrhythmia Conclusions: - 1. Mildly reduced LV ejection fraction 45-50% with impaired relaxation filling pattern 2. Mildly dilated left atrium 3. Normal cardiac valvular Dopplers 4. Normal RV systolic pressure 5. Upper limits of normal ascending aortic size 6. No pericardial effusion Findings Left Ventricle Normal left ventricular cavity size. There is normal left ventricular wall thickness. The left ventricular systolic function is mildly decreased. The visually estimated ejection fraction is between 45-50%. Spectral Doppler is indicative of an impaired relaxation filling pattern. E/E prime ratio is between 8 and 15 consistent with indeterminate filling pressures. Right Ventricle Normal right ventricular cavity size. There is normal right ventricular systolic function. There is an ICD wire seen in the right ventricle. Atria The left atrium is mildly dilated. There is lipomatous hypertrophy of the interatrial septum. There is no evidence of interatrial shunt. The right atrium is normal in size. A pacemaker wire is identified in the right atrium. Aortic Valve Normal aortic valve structure and function. There is no aortic valve stenosis. There is no aortic valve regurgitation. Mitral Valve There is mild anterior and posterior mitral leaflet thickening. There is mild anterior and mild posterior mitral annular calcification. There is trace mitral valve regurgitation. There is no mitral valve stenosis. Pulmonic Valve The pulmonic valve was not well visualized. Tricuspid Valve Normal tricuspid valve structure. There is trace tricuspid valve regurgitation. The right ventricular systolic pressure is normal. The right ventricular systolic pressure is 24 mmHg. Normal right atrial pressure. There is no evidence of pulmonary hypertension. Great Vessels The pulmonary artery was not well visualized. Venous The inferior vena cava is normal in size and collapses greater than 50% with inspiration. Pericardium/Pleural There is no evidence of pericardial effusion. Prior Study Comparison Changes noted compared to prior study dated: 06/25/2022. LV ejection fraction is marginally improved Measurements 2D Linear Measurements IVSd: 0.99 0.6-0.9/0.6-1.0 cm LVIDd: 5.36 3.9-5.3/4.2-5.9 cm LVIDd Index: 2.65 2.4-3.2/2.2-3.1 cm/m2 LVIDs: 4.13 2.0-3.6 cm LVPWd: 0.90 0.7-1.1 cm LA Diam: 3.40 2.7-3.8/3.0-4.0 cm LAIDs Index: 1.68 1.5-2.3 cm/m2 LV Mass: 236.17 67-162/88-224 g LV Mass Index: 116.92 43-95/49-115 g/m2 LVOT Diam: 2.30 3.0+(-)1.3 cm 2D Systolic Function EF 4C: 44.00 >55% EF 2C: 48.90 >55% EF BiP: 46.20 >55% Mitral Valve MV Pk E: 0.79 MV PK A: 0.88 MV Decel Time: 357.00 E/A: 0.90 E'Lateral: 5.96 E'Medial: 7.18 E/E' Med: 11.00 E/E' Lat: 13.20 PHT: 104.00 MVA PHT: 2.12 Decel [place]: 2.21 Aortic Valve AoV Pk [place]: 1.44 AoV Mn [place]: 1.06 AoV VTI: 0.26 AoV Pk Grad: 8.00 Aov Mn Grad: 5.00 ALLAN Cont.VTI: 2.93 LVOT LVOT Pk [place]: 1.05 LVOT Mn [place]: 0.76 LVOT VTI: 0.18 LVOT Pk Grad: 4.00 LVOT Mn Grad: 3.00 LVOT Diam: 2.30 LVOT Area: 4.15 Diastolic Function MV Pk E: 0.79 MV Pk A: 0.88 E/A: 0.90 E'Medial: 7.18 E/E' Med: 11.00 E' Laterial: 5.96 E/E' Lat: 13.20 Right Ventricle TAPSE (mm): 2.30 TVS' [place]: 17.10 Tricuspid Valve TR Pk [place]: 2.28 TR Pk Grad: 21.00 RA Press: 3.00 RVSP: 24.00 Great Vessels Aorta Sinus of Valsalva: 3.50 2.0-3.5 cm Ao Asc: 3.50 2.1-3.4 cm Pulmonary Valve PV Pk [place]: 1.29 Peak PV Grad: 7.00 Updated in Other Vendor System with Status of Final Jose Nielson MD electronically signed on 06/13/2023 2:24:34 PM with status of Final
== END ==
LOC: HO.CARD 09:31
PROVIDERS: PCP Internal Medicine; Visit Provider Internal Medicine Cardiovascular Disease
DX: I42.8 Other cardiomyopathies (principal)
CPT/HCPCS: 93306

== ENCOUNTER → 2023-06-12 09:33 | Outpatient (BNV) | payer OTHER, SELFPAY | PROVIDERS: PCP Internal Medicine; Visit Provider Internal Medicine Cardiovascular Disease | DX: I34.81 Nonrheumatic mitral (valve) annulus calcification (principal); I42.8 Other cardiomyopathies | CPT/HCPCS: 93306 ==

== ENCOUNTER 2023-07-10 09:50 | Outpatient (REF) | payer OTHER, SELFPAY ==
[2023-07-10 11:15] LABS: Anion Gap 15 (12-20); Blood Urea Nitrogen 22 mg/dL (9-16); Carbon Dioxide 24 mmol/L (22-29); Chloride 103 mmol/L (96-108); Estimated Glomerular Filt Rate 35; Potassium 4.6 mmol/L (3.3-5.1); Sodium 137 mmol/L (135-145)
== END 2023-07-10 09:51 | disposition home or self-care (01) ==
LOC: HO.LAB 09:50
PROVIDERS: PCP Internal Medicine; Visit Provider Internal Medicine Nephrology
DX: I12.9 Hypertensive chronic kidney disease with stage 1 through stage 4 chronic kidney disease, or unspecified chronic kidney disease (principal); N18.32 Chronic kidney disease, stage 3b
CPT/HCPCS: 36415; 80051; 82310; 82565; 84520

== ENCOUNTER 2023-08-06 09:49 | Outpatient (REF) | payer OTHER, SELFPAY ==
[2023-08-06 11:13] LABS: Anion Gap 16 (12-20); Blood Urea Nitrogen 20 mg/dL (9-16); Calcium 9.9 mg/dL (8.4-10.2); Carbon Dioxide 25 mmol/L (22-29); Chloride 99 mmol/L (96-108); Estimated Glomerular Filt Rate 38; Potassium 4.8 mmol/L (3.3-5.1); Sodium 135 mmol/L (135-145)
== END 2023-08-06 09:50 | disposition home or self-care (01) ==
LOC: HO.LAB 09:49
PROVIDERS: PCP Internal Medicine; Visit Provider Internal Medicine Nephrology
DX: Z13.89 Encounter for screening for other disorder (principal)
CPT/HCPCS: 36415; 80051; 82310; 82565; 84520

== ENCOUNTER 2023-08-13 13:57 | Inpatient (IN) | payer OTHER, SELFPAY ==
[2023-08-13] VITALS (9 sets, daily range): BP systolic 86–123; BP diastolic 49–68; PULSE 58–71; RESP 18–22; O2SAT 93–98; BMI 32.9
--- NOTE | ~2023-08-13 | XR_ITS ---
EXAMINATION: XR CHEST CLINICAL INFORMATION: Syncope COMPARISON: 09/21/2022, 07/17/2022 TECHNIQUE: 2 views of the chest were obtained. FINDINGS: Pacer/AICD with unchanged leads. Heart, mediastinum, pulmonary vessels and lung etienne within normal limits. Bony structures are intact. XR/XR chest 2V IMPRESSION: No acute cardiopulmonary disease or interval change.
--- NOTE | ~2023-08-13 | CT_ITS ---
EXAMINATION: CT HEAD WITHOUT CONTRAST CLINICAL INFORMATION: Fall with head strike. Revision. COMPARISON: CT head 11/30/2018. TECHNIQUE: Contiguous axial imaging was performed from the skull base to vertex without intravenous administration of contrast. This CT examination was performed using dose optimization techniques as appropriate, variously including the following: *Automated exposure control *Adjustment of mA and/or kV according to patient size (this includes techniques or standardized protocols for targeted exams where dose is matched to indication/reason for exam; i.e. extremities or head) *Use of iterative reconstruction technique DLP: 794 mGy-cm FINDINGS: There is no acute intracranial hemorrhage or abnormal extra-axial collection. No intracranial mass effect or midline shift. No hydrocephalus. Martinze-white matter differentiation is grossly preserved and there is no evidence of acute territorial infarct. There is mild focal swelling of the left parietal scalp. The underlying calvarium is intact. No acute skull base fracture. No active paranasal sinus disease. CT/CT head/brain wo IV con IMPRESSION: Mild focal swelling of the left parietal scalp. Otherwise unremarkable examination. No acute intracranial hemorrhage.
--- NOTE | 2023-08-13 14:04 | ED_ITS ---
HPI - General Adult General Chief complaint: Syncope Stated complaint: DIZZINESS Time Seen by Provider: 08/13/23 14:03 Source: patient and dermatology physician assistant Mode of arrival: EMS Limitations: language barrier History of Present Illness HPI narrative: Patient is a 53-year-old Japanese-speaking male with history of T2DM with CKD, heart failure with reduced EF, nonischemic cardiomyopathy, biventricular ICD with failed LV pacing lead, asthma, NANO, HLD, HTN presenting to the emergency department with complaint of dizziness and syncope at home. States that his reported to him that his eyes rolled back prior to his syncopal episode. He is unsure if he hit his head, states that he believes his assisted him to the ground. not currently at the bedside but patient states she is coming to the ED. He reports mild dizziness and 6/10 headache at this time as well as blurred vision. Denies chest pain or shortness of breath. Denies abdominal pain, nausea, vomiting, diarrhea. States that he was recently started on Corlanor 7.5mg. States checked BP at home and it was low. Reports that he was feeling fine yesterday. MD complaint: syncope, dizziness Onset (ago): minute(s) Location: head Radiation: non-radiation Severity scale (1-10): 6 Quality: aching Pain Consistency: constant Relieving factors: none Exacerbating factors: none Associated symptoms: other (blurred vision) Treatments prior to arrival: none Related Data Home Medications Medication Instructions Recorded Confirmed atorvastatin 20 mg tablet 20 mg PO DAILY 08/16/20 05/12/23 cholecalciferol (vitamin D3) 25 25 mcg PO QAM 08/16/20 05/12/23 mcg (1,000 unit) tablet trazodone 150 mg tablet 150 mg PO DAILY 08/16/20 05/12/23 insulin glargine 100 unit/mL 40 unit subcut BEDTIME 03/13/21 05/12/23 subcutaneous solution sertraline 100 mg tablet 100 mg PO DAILY 03/13/21 05/12/23 hydroxyzine pamoate 50 mg capsule 50 mg PO DAILY PRN Anxiety 06/26/21 05/12/23 loratadine 10 mg tablet 10 mg PO DAILY 06/26/21 05/12/23 mirtazapine 45 mg tablet 45 mg PO BEDTIME 06/26/21 05/12/23 omeprazole 40 mg capsule,delayed 40 mg PO DAILY 11/01/21 05/12/23 release pen needle, diabetic 32 gauge x #50 ea 11/01/21 05/12/23/32 (Pentips) aspirin 81 mg tablet,delayed 81 mg PO DAILY 10/16/22 05/12/23 release Previous Rx's Medication Instructions Recorded albuterol sulfate 2.5 mg/0.5 mL 5 mg inhalation Q6H PRN shortness 08/01/20 solution for nebulization of breath or wheezing #30 ea albuterol sulfate 90 mcg/actuation 2 inh inhalation Q4-6H PRN 08/01/20 breath activated powder inhaler shortness of breath or wheezing #1 ea lancets 33 gauge (TRUEplus Lancets) #200 ea 03/13/21 terbinafine HCl 1 % topical cream 1 appl topical BID #15 grams 03/13/21 diphenhydramine HCl 50 mg capsule 50 mg PO TID PRN itching #20 caps 09/06/21 methocarbamol 750 mg tablet 750 mg PO TID PRN muscle spasm #30 09/06/21 tabs fenofibrate micronized 30 mg 30 mg PO DAILY #30 caps 01/31/22 capsule flash glucose scanning reader #1 ea 01/31/22 (FreeStyle Garrick 2 [place]) flash glucose sensor (FreeStyle #2 ea 01/31/22 Garrick 2 Sensor kit) insulin aspart U-100 100 unit/mL 12 - 20 unit (0.12 - 0.2 mL) 01/31/22 (3 mL) subcutaneous pen subcut TID #15 mL metformin 500 mg tablet 500 mg PO BID #60 tabs 02/05/22 empagliflozin 25 mg tablet 25 mg PO QAM #30 tabs 04/30/22 (Jardiance) blood sugar diagnostic (FreeStyle #150 ea 05/02/22 Lite Strips) acetaminophen 500 mg tablet 1,000 mg (2 x 500 mg) PO QID PRN 05/16/22 (Tylenol Extra Strength) fever or pain #14 tabs oxycodone 5 mg tablet 5 mg PO Q6H PRN pain #15 tabs 05/16/22 loperamide 2 mg capsule 2 mg PO Q4H PRN loose stool #14 07/17/22 (Anti-Diarrheal (loperamide)) caps ondansetron HCl 4 mg tablet 4 mg PO Q6H PRN nausea and 07/17/22 vomiting #10 tabs dulaglutide 0.75 mg/0.5 mL 0.75 mg (0.5 mL) subcut QWEEK #2 mL 08/12/22 subcutaneous pen injector (Trulicity) digoxin 250 mcg (0.25 mg) tablet 250 mcg PO QAM #90 tabs 09/16/22 albuterol sulfate 90 mcg/actuation 1 inh inhalation QID PRN shortness 09/21/22 aerosol inhaler of breath or wheezing #8.5 grams dextromethorphan 5 mg-guaifenesin 20 ml PO Q4-6H PRN cough #118 mL 09/21/22 50 mg/5 mL oral liquid (Robitussin Cough-Chest Congestion DM) dextromethorphan polistirex 30 10 ml PO Q12H PRN cough #89 mL 09/21/22 mg/5 mL oral susp ext.release 12hr (12-Hour Cough Relief) furosemide 80 mg tablet 80 mg PO QAM #90 tabs 09/26/22 sacubitril 97 mg-valsartan 103 mg 1 tab PO BID #60 tabs 09/26/22 tablet (Entresto) carvedilol 25 mg tablet 50 mg (2 x 25 mg) PO BID 30 days 10/22/22 #120 tabs spironolactone 25 mg tablet 25 mg PO QAM #90 tabs 01/20/23 ivabradine 7.5 mg tablet (Corlanor) 7.5 mg PO BID #60 tabs 08/01/23 Allergies Allergy/AdvReac Type Severity Reaction Status Date / Time No Known Allergies Allergy Verified 02/27/23 13:37 [No Known Allergies*] Review of Systems 2 Review of Systems: As per HPI. Yes all other systems are reviewed and are negative Constitutional: Constitutional: Reports as per HPI COUNT INCLUDES [facility] Past Medical History Medical History Asthma Diabetes GERD (gastroesophageal reflux disease) Heart failure with reduced ejection fraction High cholesterol HLD (hyperlipidemia) HTN (hypertension) Implantable cardioverter-defibrillator lead failure Nonischemic cardiomyopathy Obesity due to excess calories NANO (obstructive sleep apnea) Pacemaker Type 2 diabetes mellitus with chronic kidney disease Surgical History History of circumcision History of permanent cardiac pacemaker placement (~2008) History of tonsillectomy Hx of cardiac cath Hx of transesophageal echocardiography (DAWN) for monitoring Family History Family History Father HTN (hypertension) Diabetes CVD (cardiovascular disease) Hypercholesterolemia Mother Hypercholesterolemia HTN (hypertension) Diabetes Social History Social History Household Members: Significant Other Household Members Other:: SO:Thu Alcohol intake: current Alcohol intake frequency: 3 or more drinks per day Patient Tobacco Use Status: Never used Tobacco Tobacco use type: Cigarette Smoked in Last 30 Days: Yes Use of substances other than those prescribed or required for medical reasons: No Advance Directives: No Advance Directives Information Provided: No Physical Exam ED Vital Signs: Vital Signs - 24 hr 08/13/23 14:14 08/13/23 15:31 08/13/23 15:33 Pulse Rate 58 61 Respiratory Rate 18 20 Blood Pressure 97/49 L 108/61 Pulse Oximetry 97 96 98 Oxygen Delivery Method Room Air Room Air Room Air 08/13/23 16:17 08/13/23 18:17 08/13/23 18:20 Pulse Rate 60 64 67 Respiratory Rate 19 Blood Pressure 111/54 L 110/60 98/56 L Pulse Oximetry 97 Oxygen Delivery Method Room Air 08/13/23 18:20 Pulse Rate 71 Respiratory Rate Blood Pressure 86/55 L Pulse Oximetry Oxygen Delivery Method BMI result Body Mass Index 32.9 Vital signs have been reviewed and appear to be correct. Blood pressure low. Heart rate bradycardic. Respiratory rate normal. Temperature normal. Oxygen saturation normal. Const General: cooperative, healthy appearing and no acute distress Orientation/consciousness: oriented to person, oriented to place, oriented to time and patient oriented x3 Limitations: no limitations HENMT Head: Yes normal to inspection, Yes No palpable skull fracture present, Yes normocephalic, Yes atraumatic, No Cox's sign, No raccoon eyes and No periorbital ecchymosis Ears: external ears normal, TM's normal bilaterally and EAC's normal General nose exam: Normal external nose present, Normal nasal mucous membranes and turbinates present and Normal septum present Face and sinus: Yes face symmetric Mouth: oropharynx normal and moist mucous membranes Teeth and gingiva: dentition normal Throat: Yes uvula midline Eyes Pupils: Equal, round and reactive pupils present Neck Neck: Yes normal visual inspection and Yes supple Resp Effort & Inspection: normal respiratory effort and able to speak in complete sentences Auscultation: clear to auscultation bilaterally Cardio Rate: bradycardic Rhythm: regular rhythm Heart sounds: S1 normal heart sound present and S2 normal heart sound present GI Palpation (GI): Soft to palpation and nontender Auscultation: normoactive bowel sounds General: Yes no CVA tenderness Back/Spine/Pelvis Back: no CVA tenderness Skin General skin exam: elasticity normal and turgor normal Neuro General: oriented to person, oriented to place, oriented to time, patient oriented x3, moves all extremities, no focal motor deficits and CN's II-XI intact bilaterally Cranial nerves: Yes Equal, round and reactive pupils present Cognition (Neuro): normal cognition Extrem General: Yes full ROM, Yes no pedal edema and Yes no calf tenderness Psych Mental Status: mental status grossly normal Affect: normal affect Thought process: Normal thought process present Course Reevaluation(s) Reevaluation #1: Reviewed CBC, CMP, Trop today without acute abnormalities when compared to prior. I reviewed Cardiology Dr. Nielson's note from April 2023, at that time he had no changes in symptomology since loss of cardiac resynchronization therapy, the plan was to monitor him and should he develop symptoms he may require reoperation with upgrade of ICD. His EKG today appears to be a sinus bradycardia with LBBB, continues to have significant dizziness and unsteady gait, positive orthostatics, ordered 500 mL normal saline ICV, consulted with cardiology shampoo person, Dr. Joel no additional recommendations at this time, patient to be admitted to Medicine Service under Dr. Davis, cardiology to consult tomorrow Time: 19:38 Medications Administered Discontinued Medications Generic Name Dose Route Start Last Admin Trade Name Freq PRN Reason Stop Dose Admin Sodium Chloride 500 mls @ 999 mls/hr 08/13/23 18:45 08/13/23 18:50 Ns IV 08/13/23 19:15 999 mls/hr .Q31M RITA Administration Medical Decision Making Medical Decision Making MDM Narrative: Patient is a 53-year-old Japanese-speaking male with history of T2DM with CKD, heart failure with reduced EF, nonischemic cardiomyopathy, biventricular ICD with failed LV pacing lead, asthma, NANO, HLD, HTN presenting to the emergency department with complaint of dizziness and syncope at home. On exam patient is awake, A+Ox3, VS WNL, afebrile, normal neurological exam without focal deficits, physical exam findings as above. Given reported symptoms and physical exam findings, initial differential includes ACS, cardiac dysrhythmia, ICD malfunction, electrolyte abnormality, anemia, orthostatic intolerance, vasovagal, adverse medication reaction. Less likely SAH/ICH but will obtain CT head. Do not suspect AAA rupture, aortic dissection, PE. EKG showing sinus bradycardia with LBBB. All prior EKGs show paced rhythm. [place] text to Dr. Joel. now at beside, reporting that earlier today patient got out of bed to go to the bathroom and she was in another room. He called out to her and as she walked into the room where he was, his eyes rolled back in his head and he started to fall backwards. She ran towards him and was able to assist him to the bed. She states he did not fully fall to the floor and she denies head strike. She states that he was only unresponsive for a few seconds, that he was able to answer questions once she lowered him onto the bed. She also reports that around one week ago he complained of palpitations but did not call his PCP or furnace combination analyst at that time. No evidence of infection on UA. X-ray chest without acute abnormalities. CT head shows no evidence of ICH. My interpretation is in agreement with the radiologist's interpretation. Patient signed out to VIKKI Esquivel pending labs. Differential Diagnosis Differential Diagnoses: The differential diagnosis associated with the presentation includes As per [facility] Admission/Observation Consideration of admission/observation: Escalation of care including admission/observation considered Consult Healthcare Provider Management of the patient was discussed with: Director Script (Dr. Joel) Lab Data 08/13/23 16:16 08/13/23 16:16 Labs: Lab Results 08/13/23 08/13/23 08/13/23 Range/Units 15:39 15:49 16:16 WBC 8.4 (4.8-10.8) X10*3/uL RBC 4.88 (4.60-5.80) X10*6/uL Hgb 14.6 (14.0-18.0) g/dl Hct 41.4 L (42.0-52.0) % MCV 84.8 (80.0-98.0) fL MCH 29.9 (27.0-33.0) pg MCHC 35.3 (31.0-36.0) g/dl RDW 12.8 (11.0-16.0) % Plt Count 212 (160-400) X10*3/uL MPV 10.0 (9.4-12.4) fL Immature Gran % (Auto) 0.5 H (0.0-0.4) % Neut % (Auto) 69.2 (45-73) % Lymph % (Auto) 20.9 (20-40) % [place] % (Auto) 6.8 (2-11) % Eos % (Auto) 2.2 (0-4) % Baso % (Auto) 0.4 (0-2) % Lymph # (Auto) 1.8 (1.2-4.9) X10*3/uL [place] # (Auto) 0.6 (0.1-1.2) X10*3/uL Eos # (Auto) 0.2 (0.0-0.4) X10*3/uL Baso # (Auto) 0.0 (0.0-0.2) X10*3/uL Abs Immat Gran (auto) 0.04 H (0.00-0.03) X10*3/uL Absolute Neuts (auto) 5.8 (2.0-8.3) x10*3/uL Absolute Nucleated RBC 0.000 (0.0-0.012) X10*3/uL Nucleated RBC % (auto) 0.0 (0.0-0.2) /100WBC PT 10.8 L (11.1-13.3) SEC INR 0.9 (0.9-1.1) Sodium 139 (135-145) mmol/L Potassium 4.6 (3.3-5.1) mmol/L Chloride 101 (96-108) mmol/L Carbon Dioxide 23 (22-29) mmol/L Anion Gap 20 (12-20) BUN 23 H (9-16) mg/dL Creatinine 2.03 H (0.5-1.4) mg/dL Estim Creat Clear Calc 46.8 Estimated GFR 35 POC Glucose 195 H (60-115) mg/dL Random Glucose 181 H (60-115) mg/dL Calcium 10.5 H D (8.4-10.2) mg/dL Total Bilirubin 0.3 (0.0-1.0) mg/dL AST 18 (5-37) U/L ALT 27 (0-40) U/L Alkaline Phosphatase 79 (39-117) U/L Troponin I High Sens < 2.7 (<3.5-35.0) ng/L Total Protein 7.6 (6.5-8.0) g/dL Albumin 4.3 (3.5-5.0) g/dL Urine Color Yellow Urine Appearance Clear Urine pH 5.5 (5.0-9.0) Ur Specific [place] 1.015 (1.005-1.025) Urine Protein Negative (Neg-Trace) mg/dL Urine Glucose (UA) >=1000 H (Negative) mg/dL Urine Ketones Negative (Negative) mg/dL Urine Blood Negative (Negative) Urine Nitrite Negative (Negative) Ur Leukocyte Esterase Negative (Negative) Urine RBC 0-2 (0-2) /HPF Urine WBC 0-5 (0-5) /HPF Ur Squamous Epith Cells 0-2 (0-2) /HPF Urine Bacteria None Seen (None Seen) Hyaline Casts 3-5 (0-2) /LPF Independent Interpretation I performed an independent interpretation of an: Plain X-Ray and CT Scan Interpretation: X-ray chest without acute abnormalities. CT head shows mild focal swelling of left parietal scalp but otherwise unremarkable exam, no ICH. Radiology Impression Discussion of test interpretation with radiology: I have reviewed the radiologist's reading. Radiologist Impression: XR/XR chest 2V IMPRESSION: No acute cardiopulmonary disease or interval change. CT/CT head/brain wo IV con IMPRESSION: Mild focal swelling of the left parietal scalp. Otherwise unremarkable examination. No acute intracranial hemorrhage. Independent Historian Clinical information obtained from an independent historian. History obtained from or confirmed by: Spouse External Record Review External record reviewed: Inpatient record and Office record Chronic Conditions Patient?s care impacted by: Diabetes and Other (heart failure, ICD) Discharge Plan Discharge Clinical Impression: Syncope Patient Disposition: Admitted As Inpatient Prescriptions: No Action metformin 500 mg tablet 500 mg PO BID Qty: 60 6RF Jardiance 25 mg tablet 25 mg PO QAM Qty: 30 6RF (DME) FreeStyle Lite Strips Strip See Rx Instructions .ROUTE .MEDSUPPLY Qty: 150 11RF Rx Instructions: As directed four times a day Trulicity 0.75 mg/0.5 mL pen injector 0.75 mg subcut QWEEK Qty: 2 2RF digoxin 250 mcg (0.25 mg) tablet 250 mcg PO QAM Qty: 90 3RF Entresto 97-103 mg tablet 1 tab PO BID Qty: 60 5RF furosemide 80 mg tablet 80 mg PO QAM Qty: 90 3RF carvedilol 25 mg tablet 50 mg PO BID 30 Days Qty: 120 5RF spironolactone 25 mg tablet 25 mg PO QAM Qty: 90 3RF Corlanor 7.5 mg tablet 7.5 mg PO BID Qty: 60 5RF albuterol sulfate 90 mcg/actuation aerosol powdr breath activated 2 inh inhalation Q4-6H PRN (Reason: shortness of breath or wheezing) Qty: 1 0RF albuterol sulfate 2.5 mg/0.5 mL solution for nebulization 5 mg inhalation Q6H PRN (Reason: shortness of breath or wheezing) Qty: 30 0RF oxycodone 5 mg tablet 5 mg PO Q6H PRN (Reason: pain) Qty: 15 0RF Rx Instructions: Partial Fill upon patient request. acetaminophen [Tylenol Extra Strength] 500 mg tablet 1,000 mg PO QID PRN (Reason: fever or pain) Qty: 14 0RF loperamide [Anti-Diarrheal (loperamide)] 2 mg capsule 2 mg PO Q4H PRN (Reason: loose stool) Qty: 14 0RF Rx Instructions: administer after each loose stool until symptoms controlled; do not exceed 8 mg per 24 hrs ondansetron HCl 4 mg tablet 4 mg PO Q6H PRN (Reason: nausea and vomiting) Qty: 10 0RF diphenhydramine HCl 50 mg capsule 50 mg PO TID PRN (Reason: itching) Qty: 20 0RF methocarbamol 750 mg tablet 750 mg PO TID PRN (Reason: muscle spasm) Qty: 30 0RF albuterol sulfate 90 mcg/actuation HFA aerosol inhaler 1 inh inhalation QID PRN (Reason: shortness of breath or wheezing) Qty: 8.5 0RF Robitussin Cough-Chest Satnam DM 5-50 mg/5 mL liquid 20 ml PO Q4-6H PRN (Reason: cough) Qty: 118 0RF dextromethorphan polistirex [12-Hour Cough Relief] 30 mg/5 mL suspension,extended rel 12 hr 10 ml PO Q12H PRN (Reason: cough) Qty: 89 0RF atorvastatin 20 mg tablet 20 mg PO DAILY cholecalciferol (vitamin D3) 25 mcg (1,000 unit) tablet 25 mcg PO QAM trazodone 150 mg tablet 150 mg PO DAILY sertraline 100 mg tablet 100 mg PO DAILY Lantus U-100 Insulin 100 unit/mL solution 40 unit subcut BEDTIME (DME) lancets [TRUEplus Lancets] 33 gauge misc See Rx Instructions .ROUTE .MEDSUPPLY Qty: 200 11RF Rx Instructions: Four times a day terbinafine HCl 1 % cream 1 appl topical BID Qty: 15 1RF Rx Instructions: Use for 10 days loratadine 10 mg tablet 10 mg PO DAILY mirtazapine 45 mg tablet 45 mg PO BEDTIME hydroxyzine pamoate 50 mg capsule 50 mg PO DAILY PRN (Reason: Anxiety) omeprazole 40 mg capsule,delayed release(DR/EC) 40 mg PO DAILY (DME) pen needle, diabetic [Pentips] 32 gauge x 5/32 needle See Rx Instructions .ROUTE TID Qty: 50 Rx Instructions: As directed fenofibrate micronized 30 mg capsule 30 mg PO DAILY Qty: 30 11RF insulin aspart U-100 100 unit/mL (3 mL) insulin pen 12 - 20 unit subcut TID Qty: 15 6RF (DME) FreeStyle Garrick 2 [place] Misc See Rx Instructions .ROUTE .MEDSUPPLY Qty: 1 0RF Rx Instructions: As directed (DME) FreeStyle Garrick 2 Sensor Kit See Rx Instructions .ROUTE .MEDSUPPLY Qty: 2 11RF Rx Instructions: As directed every 2 weeks aspirin 81 mg tablet,delayed release (DR/EC) 81 mg PO DAILY
--- NOTE | 2023-08-13 14:19 | ECG_ITS ---
Test Reason : cp Blood Pressure : / mmHG Vent. Rate : 057 BPM Atrial Rate : 057 BPM P-R Int : 200 ms QRS Dur : 158 ms QT Int : 448 ms P-R-T Axes : 007 027 -38 degrees QTc Int : 436 ms Sinus bradycardia T-wave inversion in Inferior leads Left bundle branch block Abnormal ECG When compared with ECG of 17-JUL-2022 13:36, Sinus rhythm has replaced Electronic ventricular pacemaker Referred By: Lin Haley Electronically Signed By:RUSTY WEBSTER MD
--- OUTSIDE RECORDS SUMMARY | 2023-08-13 14:37 | XMS_ITS | Patient Health Record ---
Author Name Unknown Organization [facility] Address [address] [place] [address] Care Team Providers Care Search Engine Optimizer Name Role Phone Megan Bañuelos MD, Tor Primary Care Provide r Unavailable Juan M Morel Unavailable [phone] ALLERGIES No Known Allergies REASON FOR REFERRAL No Information MEDICATIONS Medication SIG (Take, Route, Frequency, Duration) Notes Start Date End Date Status Furosemide 80 MG TAKE 1 TABLET BY IOANA TH EVERY MORNING Oral for 30 Active Trulicity 0.75 MG/0.5ML Subcutaneous for 28 Active Entresto 97-103 MG Oral for 30 Active Lantus 100 UNIT/ML INJECT 40 UNITS SUBCUTANEOUSLY AT BEDTIME Subcutaneous for 24 Active Digoxin 250 MCG Oral for 30 Ac tive Corlanor 7.5 MG Oral for 30 Ac tive Atorvastatin Calcium 20 MG TAKE 1 TABLET BY MOUTH EVERY EVENING Oral for 90 Active Loratadine 10 MG Oral for 30 A ctive glipiZIDE XL 10 MG Oral for 30 Active metFORMIN HCl 500 MG Oral for 30 Active Sertraline HCl 100 MG TAKE 2 TABLETS BY MOUTH EVERY DAY AT BEDTIME Diagnosis Unavailable Oral for 30 Active Jardiance 10 MG TAKE 1 TABLET BY IOANA TH EVERY MORNING Diagnosis Unavailable Oral for 30 Active NovoLOG FlexPen 100 UNIT/ML Subcutaneous for 30 Active Albuterol Sulfate (2.5 MG/3ML) 0.083% INHALE 1 AMPULE USING A NEBULIZER THREE TIMES DAILY Inhalation for 10 Active Aspirin Low Dose 81 MG Oral for 90 Active Spironolactone 25 MG Oral for 90 Active Carvedilol 25 MG TAKE 2 TABLETS BY MO UTH TWICE DAILY IN THE MORNING AND EVENING Oral for 30 Active Vitamin D3 25 MCG TAKE 1 TABLET BY IOANA TH EVERY MORNING Oral for 90 Active Omeprazole 40 MG Oral for 90 A ctive IMMUNIZATIONS Vaccine Route Administration Date Status Comme nts Influenza Unknown 10/09/2021 Refused SOCIAL HISTORY Tobacco Use: Social History Observation Description Date Details (start date - stop date) Current Smoker NA - NA Sex Assigned At : Social History Observation Description Sex Assigned At Unknown Tobacco Use/Smoking Question Answer Notes Patient is a current smoker How often do you smoke cigarettes? some days, bu t not every day How many cigarettes a day do you smoke? 5 or les s Alcohol Screen Question Answer Notes Did you have a drink contain ing alcohol in the past year? Yes How often did you have a dri nk containing alcohol in the past year? 2 to 4 times a month (2 points) How many drinks did you have on a typical day when you were drinking in the past year? 1 or 2 drinks (0 point) Points 2 Interpretation Negative PROBLEMS Problem Type ICD Code Onset Dates Problem Status W/U Status Risk SNOMED Code Notes Problem Gastroesophageal reflux disease, unspecified whether esophagitis present (K21.9) Active confirmed 947150740 Problem Encounter for screening for malignant neoplasm of colon (Z12.11) Active confirmed 356617140 Problem Diverticulosis of colon (K57.30) Active confirmed Diverticulosi s of colon (131179053) Problem Gastritis (K29.70) Active confirmed Gas tritis (5376222) Problem Gastroesophageal reflux (K21.9) Active confirmed Esophageal reflux finding (473011334) PLAN OF TREATMENT Pending Test Test Name Order Date Pathology 01/25/2022 Future Test Test Name Order Date UPPER GI ENDOSCOPY 10/09/2021 COLONOSCOPY 10/09/2021 Insurance Providers Payer Name Payer Address Payer Phone Subscriber Number Group Number Insured Name Patient Relationship to Insured Coverage Start Date Coverage End Date [facility] [address] [place] [address] [id number] CARMINA LOMAX Self - patient is the insured MEDICAL (GENERAL) HISTORY Medical History History ICD Code GERD IDDM Hypertension Nonischemic cardiomyopathy-Johnny Nielson---seen at [facility] in [place] for ? cardiac transplant, but not on active list Sleep apnea- cpap machine Depression CHF Hyperlipidemia CKD stage 3 Asthma Pacemaker Denies [place],CVA Surgical History Surgery Date(Month/Year) Pacemaker 2008
--- NOTE | 2023-08-13 15:42 | PC.NURSE ---
pt is alert and oriented, skin appropriate for ethnicity, respirations even and unlabored, pt's reports that the pt had a syncope episode in front of her, pt was walking then started to collapse the eased him to the bed, never hit head but when the pt came to he reported feeling dizzy, pt is still feeling slightly dizzy, spinning in circles but pt denies pain, nadeem on the monitor ranging from 50-60's with a bundle branch
[2023-08-13 15:48] LABS: Appearance Urine Clear; Color Urine Yellow; Glucose Urine UA >=1000 mg/dL (Negative); Leukocyte Esterase Urine Negative (Negative); Nitrite Urine Negative (Negative); PH 5.5 (5.0-9.0); Specific Gravity - Urine 1.015 (1.005-1.025); UMIC TRIGGER UACC YES; Urine Blood Negative (Negative); Urine Ketones Negative (Negative); Urine Protein Negative (Neg-Trace)
[2023-08-13 15:52] LABS: Bacteria Urine None Seen (None Seen); RBC Urine 0-2 /HPF (0-2); Squamous Epithelial Cell Urine 0-2 /HPF (0-2); WBC Urine 0-5 /HPF (0-5)
[2023-08-13 15:54] LABS: Glucose, Whole Blood 195 mg/dL (60-115)
[2023-08-13 16:23] LABS: MANUAL DIFF FLAG NO
[2023-08-13 16:30] LABS: Basophils Percent Auto 0.4 % (0-2); Eosinophils Absolute Auto 0.2 X10*3/uL (0.0-0.4); Eosinophils Percent Auto 2.2 % (0-4); Hematocrit 41.4 % (42.0-52.0); Hemoglobin 14.6 g/dl (14.0-18.0); Imm Gran Abs Auto 0.04 X10*3/uL (0.00-0.03); Imm Gran Pct Auto 0.5 % (0.0-0.4); Lymphocytes Absolute Auto 1.8 X10*3/uL (1.2-4.9); Lymphocytes Percent Auto 20.9 % (20-40); Mean Corpuscular HGB Conc 35.3 g/dl (31.0-36.0); Mean Corpuscular Hemoglobin 29.9 pg (27.0-33.0); Mean Corpuscular Volume 84.8 fL (80.0-98.0); Monocytes Absolute Auto 0.6 X10*3/uL (0.1-1.2); Monocytes Percent Auto 6.8 % (2-11); Neutrophils Absolute Auto 5.8 x10*3/uL (2.0-8.3); Neutrophils Percent Auto 69.2 % (45-73); Platelet Count 212 X10*3/uL (160-400); Red Blood Count 4.88 X10*6/uL (4.60-5.80); Red Cell Distribution Width 12.8 % (11.0-16.0); White Blood Count 8.4 X10*3/uL (4.8-10.8)
[2023-08-13 16:32] LABS: INTERNATIONAL NORM RATIO 0.9 (0.9-1.1); Prothrombin Time 10.8 SEC (11.1-13.3)
[2023-08-13 16:44] LABS: Alanine Aminotransferase 27 U/L (0-40); Albumin Level 4.3 g/dL (3.5-5.0); Alkaline Phosphatase 79 U/L (39-117); Anion Gap 20 (12-20); Aspartate Amino Transferase 18 U/L (5-37); Bilirubin Total 0.3 mg/dL (0.0-1.0); Blood Urea Nitrogen 23 mg/dL (9-16); Calcium 10.5 mg/dL (8.4-10.2); Carbon Dioxide 23 mmol/L (22-29); Chloride 101 mmol/L (96-108); Creatinine Clr Calc Pharmacy 46.8; Estimated Glomerular Filt Rate 35; Glucose Random 181 mg/dL (60-115); Potassium 4.6 mmol/L (3.3-5.1); Sodium 139 mmol/L (135-145); Total Protein 7.6 g/dL (6.5-8.0)
[2023-08-13 16:52] LABS: Troponin-I High Sensitivity < 2.7 ng/L (<3.5-35.0)
--- NOTE | 2023-08-13 18:27 | PC.NURSE ---
pt's orthostatic vs performed pt did drop significantly from laying to standing, but denies feeling dizzy and no pain at this time, kelley SENIOR LEAD JAVA DEVELOPER aware
[2023-08-13] MEDS: 0.9 % Sodium Chloride 500 ML 999 ML IV (18:50)
--- NOTE | 2023-08-13 19:38 | PM.IMHP ---
History of Present Illness Date of Service: 08/13/23 Chief Complaint: Syncope This is a 53-year-old male with pertinent history of congestive heart failure with reduced ejection fraction, essential hypertension, mixed hyperlipidemia, insulin-dependent diabetes mellitus, mood disorder who presents to the emergency department for evaluation of syncope. Patient states while he was getting up to go to the bathroom, he got dizzy/lightheaded and passed out. Patient's saw him lying on the floor. He was passed out for about 10 seconds. No rhythmic jerking movement of extremities prior to passing out. Patient states has been having loose stools, 5-6 episodes on the day of presentation. No vomiting. Patient also states he has been having chest discomfort at rest that has been ongoing for the last 1 week. Not relieved with rest but sometimes exacerbated with exertion. No fever, chills, palpitations, shortness of breath, abdominal pain, changes in urinary or bowel habits. In the emergency department, orthostatic vital signs noted to be positive and Cardiology was consulted who requested admission. Review of Systems Constitutional: Constitutional: Reports fatigue and Reports malaise ENT: Reports dizziness Cardiovascular: Cardiovascular: Reports chest pain and Reports syncope Respiratory: Respiratory: Reports no additional respiratory complaints Gastrointestinal: Gastrointestinal: Reports diarrhea Genitourinary: Genitourinary: Reports no additional male genitourinary complaints Neurologic: Reports dizziness and Reports syncope Endocrine: Endocrine: Reports fatigue [facility] Medical History GERD (gastroesophageal reflux disease) Asthma NANO (obstructive sleep apnea) Obesity due to excess calories HLD (hyperlipidemia) Type 2 diabetes mellitus with chronic kidney disease Heart failure with reduced ejection fraction Implantable cardioverter-defibrillator lead failure Nonischemic cardiomyopathy High cholesterol Diabetes HTN (hypertension) Pacemaker Family History Father HTN (hypertension) Diabetes CVD (cardiovascular disease) Hypercholesterolemia Mother Hypercholesterolemia HTN (hypertension) Diabetes Surgical History History of tonsillectomy Hx of cardiac cath Hx of transesophageal echocardiography (DAWN) for monitoring History of permanent cardiac pacemaker placement (~2008) History of circumcision Social History Household Members: Significant Other Household Members Other:: SO:Thu Alcohol intake: current Alcohol intake frequency: 3 or more drinks per day Patient Tobacco Use Status: Never used Tobacco Tobacco use type: Cigarette Smoked in Last 30 Days: Yes Use of substances other than those prescribed or required for medical reasons: No Advance Directives: No Advance Directives Information Provided: No Nutrition Risks: No Nutritional Risk Meds Allergies Allergy/AdvReac Type Severity Reaction Status Date / Time No Known Allergies Allergy Verified 02/27/23 13:37 [No Known Allergies*] Active Medications: Current Medications Sodium Chloride (Ns) 500 mls @ 500 mls/hr IV .Q1H ONE Stop: 08/13/23 20:35 Home Medications Medication Instructions Recorded Confirmed Last Taken Type cholecalciferol (vitamin D3) 25 25 mcg PO QAM 08/16/20 08/13/23 08/13/23 History mcg (1,000 unit) tablet insulin glargine 100 unit/mL 40 unit subcut BEDTIME 03/13/21 08/13/23 Unknown History subcutaneous solution sertraline 100 mg tablet 200 mg PO DAILY 03/13/21 08/13/23 08/13/23 History hydroxyzine pamoate 50 mg capsule 50 mg PO BEDTIME PRN Anxiety 06/26/21 08/13/23 Unknown History mirtazapine 45 mg tablet 45 mg PO BEDTIME 06/26/21 08/13/23 Unknown History omeprazole 40 mg capsule,delayed 40 mg PO DAILY 11/01/21 08/13/23 08/13/23 History release pen needle, diabetic 32 gauge x #50 ea 11/01/21 05/12/23 Unknown History (Pentips) aspirin 81 mg tablet,delayed 81 mg PO DAILY 10/16/22 08/13/23 08/13/23 History release albuterol sulfate 2.5 mg/3 mL 2.5 mg inhalation TID PRN wheezing 08/13/23 08/13/23 Unknown History (0.083 %) solution for nebulization dulaglutide 1.5 mg/0.5 mL 1.5 mg subcut TU 08/13/23 08/13/23 08/12/23 History subcutaneous pen injector (Trulicity) fenofibrate 54 mg tablet 54 mg PO QAM 08/13/23 08/13/23 08/13/23 History insulin aspart U-100 100 unit/mL See Protocol subcut QIDACHS 08/13/23 08/13/23 08/13/23 History (3 mL) subcutaneous pen omega-3 300 mg-dha 120 mg-epa 180 1 cap PO TID 08/13/23 08/13/23 08/13/23 History mg-fish oil 1,000 mg capsule Physical Exam Vital Signs and Narrative: Vital Signs: Last Vital Signs Pulse 71 08/13/23 18:20 Resp 19 08/13/23 16:17 BP 86/55 L 08/13/23 18:20 Pulse Ox 97 08/13/23 16:17 O2 Del Method Room Air 08/13/23 16:17 BMI result Body Mass Index 32.9 Middle-aged male lying in bed in no distress Neck supple, no JVD Regular rate and rhythm, S1-S2 heard Regular breath sounds bilaterally, no wheezing or crackles appreciated Abdomen soft nontender, no guarding, no rigidity Patient is awake, alert and oriented to self, place, time and person ; no focal motor deficit Psych: Normal mood No pedal edema Results Labs 08/13/23 16:16 08/13/23 16:16 Labs: Laboratory Results - last 24 hr 08/13/23 08/13/23 08/13/23 15:39 15:49 16:16 MCV 84.8 MCH 29.9 MCHC 35.3 RDW 12.8 Plt Count 212 MPV 10.0 Immature Gran % (Auto) 0.5 H Neut % (Auto) 69.2 Lymph % (Auto) 20.9 [place] % (Auto) 6.8 Eos % (Auto) 2.2 Baso % (Auto) 0.4 Lymph # (Auto) 1.8 [place] # (Auto) 0.6 Eos # (Auto) 0.2 Baso # (Auto) 0.0 Abs Immat Gran (auto) 0.04 H Absolute Neuts (auto) 5.8 Absolute Nucleated RBC 0.000 Nucleated RBC % (auto) 0.0 PT 10.8 L INR 0.9 Anion Gap 20 Estim Creat Clear Calc 46.8 Estimated GFR 35 POC Glucose 195 H Random Glucose 181 H Calcium 10.5 H D Total Bilirubin 0.3 AST 18 ALT 27 Alkaline Phosphatase 79 Total Protein 7.6 Albumin 4.3 Urine Color Yellow Urine Appearance Clear Urine pH 5.5 Ur Specific [place] 1.015 Urine Protein Negative Urine Glucose (UA) >=1000 H Urine Ketones Negative Urine Blood Negative Urine Nitrite Negative Ur Leukocyte Esterase Negative Urine RBC 0-2 Urine WBC 0-5 Ur Squamous Epith Cells 0-2 Urine Bacteria None Seen Hyaline Casts 3-5 Imaging Radiologist's Impressions: Impressions Chest X-Ray 08/13/23 14:28 IMPRESSION: No acute cardiopulmonary disease or interval change. Head CT 08/13/23 14:41 IMPRESSION: Mild focal swelling of the left parietal scalp. Otherwise unremarkable examination. No acute intracranial hemorrhage. Assessment and Plan (1) Syncope: Status: Acute Plan This is a 53-year-old male with pertinent history of congestive heart failure with reduced ejection fraction, essential hypertension, mixed hyperlipidemia, insulin-dependent diabetes mellitus, mood disorder who presents to the emergency department for evaluation of syncope. #. Syncope, likely orthostatic: Noted orthostatic vital signs positive in the ER. Will admit patient with cardiac monitoring. Repeat orthostatic vital signs in a.m. Resuscitated with IV crystalloids #. Chest discomfort, atypical: Trend troponin. Cardiology consulted from the ER, appreciate assistance #. Diarrhea: Supportive care. GI panel pending #. Congestive heart failure with reduced ejection fraction: No decompensation during admission. #. Insulin-dependent diabetes mellitus with hyperglycemia. Initiating basal plus insulin regimen #. Mood disorder: Continue home mood stabilizers Med rec pending DVT prophylaxis: Lovenox Full code Time Spent With Patient Time: Total time managing care of this patient today ____ minutes. Quality Stroke Does the patient have a stroke diagnosis?: No VTE Prior VTE?: No VTE Risk Level:: Medical - moderate - high VTE Device Contraindication: Treatment Not Indicated VTE Drug Contraindication: N/A - Med Ordered
--- NOTE | 2023-08-13 20:02 | PHA.MEDREC ---
Pharmacy Consult ? Medication Reconciliation Pharmacy has completed the medication reconciliation. Patient had med box list with him. Patient confirmed medicaitons that were not on list. Scarlett Martinez, LokiD
[2023-08-13] MEDS: Enoxaparin Sodium 40 MG/0.4 ML SYRINGE SUBCUT (20:28)
[2023-08-13] MEDS: 0.9 % Sodium Chloride 500 ML IV (20:29)
[2023-08-13] MEDS: Insulin Lispro 100 UNIT/ML 3 ML VIAL SUBCUT (20:35)
[2023-08-13 20:37] LABS: Glucose, Whole Blood 196 mg/dL (60-115)
[2023-08-13 20:46] LABS: B Type Natriuretic Peptide 12 pg/mL (<100)
[2023-08-13] MEDS: Insulin Glargine,Hum.rec.anlog 100 UNIT/ML 10 ML VIAL 30 UNIT SUBCUT (21:28)
[2023-08-14] VITALS (8 sets, daily range): BP systolic 96–116; BP diastolic 51–74; PULSE 68–79; RESP 16–20; TEMP 36–36.7; O2SAT 93–97; BMI 31.9
[2023-08-14 05:17] LABS: Hematocrit 40.3 % (42.0-52.0); Hemoglobin 14.4 g/dl (14.0-18.0); Mean Corpuscular HGB Conc 35.7 g/dl (31.0-36.0); Mean Corpuscular Hemoglobin 30.8 pg (27.0-33.0); Mean Corpuscular Volume 86.1 fL (80.0-98.0); Mean Platelet Volume 10.1 fL (9.4-12.4); Platelet Count 200 X10*3/uL (160-400); Red Blood Count 4.68 X10*6/uL (4.60-5.80); Red Cell Distribution Width 12.8 % (11.0-16.0); White Blood Count 6.7 X10*3/uL (4.8-10.8)
[2023-08-14 05:33] LABS: Anion Gap 17 (12-20); Blood Urea Nitrogen 22 mg/dL (9-16); Calcium 9.7 mg/dL (8.4-10.2); Carbon Dioxide 20 mmol/L (22-29); Chloride 105 mmol/L (96-108); Creatinine Clr Calc Pharmacy 58.2; Estimated Glomerular Filt Rate 45; Glucose Random 230 mg/dL (60-115); Sodium 138 mmol/L (135-145)
[2023-08-14 05:46] LABS: Troponin-I High Sensitivity < 2.7 ng/L (<3.5-35.0)
[2023-08-14 07:21] LABS: Glucose, Whole Blood 179 mg/dL (60-115)
[2023-08-14] MEDS: Insulin Lispro 100 UNIT/ML 3 ML VIAL SUBCUT ×4 (07:22→20:16)
[2023-08-14] MEDS: 0.9 % Sodium Chloride Flush 3 ML SYRINGE IVFLUSH ×3 (07:23→21:15)
--- NOTE | 2023-08-14 08:04 | PC.NURSE ---
awake, alert, and oriented. resting quietly in room eating breakfast. offering no complaints at this time.
[2023-08-14] MEDS: Acetaminophen 325 MG TABLET 650 MG PO (09:36)
--- NOTE | 2023-08-14 09:39 | MHC.CM.PN ---
CM met with Patient and his at bedside and addressed DESIR with them, providing Patient with the original and placing a copy on the chart. Patient lives in an apartment with his and he uses a walker to assist with mobility. Patient receives 6 hours/day of [employer] services and home/resume said services is the goal. CM has initiated and will follow for dc planning. PCP is Dr. Tor Villela.
--- NOTE | 2023-08-14 11:19 | P.CONCA_ITS ---
History of Present Illness History of Present Illness Date of Service: 08/14/23 Chief complaint: Syncope Narrative: This is a cardiology consultation for syncope. Patient has a history of cardiomyopathy. He has a ICD in place but apparently LV lead has a high pacing threshold and hence the device is only used for primary prevention and programmed VVI. In spite of this, apparently has been generally doing okay. Per last office note by Dr. Nielson, his ejection fraction is generally in the 40s and he has been stable. He is on a very good regimen including Entresto, carvedilol, Jardiance, spironolactone as well as Corlanor. Patient was apparently doing well but more recently started feeling dizzy. This has been going on for the last few days. Every time he walks, he feels as though he is going to be unsteady and fall down. That led to the current hospitalization. Blood pressures are lower side but not profoundly low. He is not able to unfortunately recall the names but for the most part meds are accurate. With regard to the interested dose, it seems that he might be taking 1 tablet in the morning and half a tablet at nighttime but again difficult to be absolutely sure of that. He thinks the kidney doctor also made some changes and hence there is a confusion because of that. Review of Systems 2 Review of Systems: Yes all other systems are reviewed and are negative Constitutional: Constitutional: Reports as per HPI and Reports no additional constitutional complaints Eyes: Eyes: Reports as per HPI and Denies no additional eye complaints ENT: Denies system reviewed and no additional complaints, except as documented and Reports as per HPI Cardiovascular: Cardiovascular: Reports as per HPI, Reports no additional cardiovascular complaints, Denies acrocyanosis, Denies cool extremities, Denies chest pain, Denies leg edema, Denies lightheadedness, Denies palpitations and Reports dyspnea Respiratory: Respiratory: Reports as per HPI, Denies no additional respiratory complaints and Reports dyspnea Gastrointestinal: Gastrointestinal: Reports as per HPI and Denies no additional gastrointestinal complaints Genitourinary: Genitourinary: Reports no additional male genitourinary complaints and Reports as per HPI Musculoskeletal: Musculoskeletal: Reports no additional musculoskeletal complaints and Reports as per HPI Integumentary/Breasts: Skin/Breast: Reports system reviewed and no additional complaints, except as docu Neurologic: Reports system reviewed and no additional complaints, except as documented and Reports as per HPI Psychiatric: Psychiatric: Reports no additional psychiatric complaints and Reports as per HPI Endocrine: Endocrine: Reports no additional endocrine complaints, Reports as per HPI and Denies palpitations Hematologic/Lymphatic: Hematologic/Lymphatic: Reports no additional hematologic/lymphatic complaints and Reports as per HPI Allergic/Immunologic: Allergic/Immunologic: Reports no additional allergic/immunologic complaints and Reports as per HPI [facility] Past Medical History Medical History GERD (gastroesophageal reflux disease) Asthma NANO (obstructive sleep apnea) Obesity due to excess calories HLD (hyperlipidemia) Type 2 diabetes mellitus with chronic kidney disease Heart failure with reduced ejection fraction Implantable cardioverter-defibrillator lead failure Nonischemic cardiomyopathy High cholesterol Diabetes HTN (hypertension) Pacemaker Family History Family History Father HTN (hypertension) Diabetes CVD (cardiovascular disease) Hypercholesterolemia Mother Hypercholesterolemia HTN (hypertension) Diabetes Surgical History Surgical History History of tonsillectomy Hx of cardiac cath Hx of transesophageal echocardiography (DAWN) for monitoring History of permanent cardiac pacemaker placement (~2008) History of circumcision Social History Social History Household Members: Significant Other Household Members Other:: SO:Thu Alcohol intake: current Alcohol intake frequency: 3 or more drinks per day Patient Tobacco Use Status: Never used Tobacco Tobacco use type: Cigarette service: No Meds Allergies Allergy/AdvReac Type Severity Reaction Status Date / Time No Known Allergies Allergy Verified 02/27/23 13:37 [No Known Allergies*] Active Medications: Current Medications Acetaminophen (Acetaminophen 325 Mg Tablet) 650 mg PO Q6H PRN PRN Reason: Pain, Mild (Pain Scale 1-3) Last Admin: 08/14/23 09:36 Dose: 650 mg Dextrose (Dextrose 50 % 25 Gm/50 Ml Syringe) 25 gm IVPUSH Q15M PRN; Protocol PRN Reason: per Hypoglycemia Standing Ord. Enoxaparin Sodium (Enoxaparin Sodium 40 Mg/0.4 Ml Syringe) 40 mg SUBCUT Q24H RITA Last Admin: 08/13/23 20:28 Dose: 40 mg Glucose (Glucose Gel 15 Gm Gel..Gram.) 15 gm PO Q15M PRN; Protocol PRN Reason: per Hypoglycemia Standing Ord. Insulin Glargine (Insulin Glargine,Hum.Rec.Anlog 100 Unit/Ml 10 Ml Vial) 30 unit SUBCUT BEDTIME [facility] Last Admin: 08/13/23 21:28 Dose: 30 unit Insulin Human Lispro (Insulin Lispro 100 Unit/Ml 3 Ml Vial) 0 unit SUBCUT QIDACHS [facility]; Protocol Last Admin: 08/14/23 07:22 Dose: 2 unit Melatonin (Melatonin 3 Mg Tablet) 6 mg PO BEDTIME PRN PRN Reason: Insomnia Mirtazapine (Mirtazapine 15 Mg Tablet) 45 mg PO BEDTIME [facility] Last Admin: 08/13/23 22:24 Dose: Not Given Ondansetron HCl (Ondansetron Hcl 4 Mg/2 Ml Vial) 4 mg IVPUSH Q8H PRN PRN Reason: Nausea and Vomiting Sodium Chloride (0.9 % Sodium Chloride Flush 3 Ml Syringe) 3 ml IVFLUSH QSHIFT [facility] Last Admin: 08/14/23 07:23 Dose: 3 ml Home Medications Medication Instructions Recorded Confirmed Last Taken Type cholecalciferol (vitamin D3) 25 25 mcg PO QAM 08/16/20 08/13/23 08/13/23 History mcg (1,000 unit) tablet insulin glargine 100 unit/mL 40 unit subcut BEDTIME 03/13/21 08/13/23 Unknown History subcutaneous solution sertraline 100 mg tablet 200 mg PO DAILY 03/13/21 08/13/23 08/13/23 History hydroxyzine pamoate 50 mg capsule 50 mg PO BEDTIME PRN Anxiety 06/26/21 08/13/23 Unknown History mirtazapine 45 mg tablet 45 mg PO BEDTIME 06/26/21 08/13/23 Unknown History omeprazole 40 mg capsule,delayed 40 mg PO DAILY 11/01/21 08/13/23 08/13/23 History release pen needle, diabetic 32 gauge x #50 ea 11/01/21 05/12/23 Unknown History (Pentips) aspirin 81 mg tablet,delayed 81 mg PO DAILY 10/16/22 08/13/23 08/13/23 History release albuterol sulfate 2.5 mg/3 mL 2.5 mg inhalation TID PRN wheezing 08/13/23 08/13/23 Unknown History (0.083 %) solution for nebulization dulaglutide 1.5 mg/0.5 mL 1.5 mg subcut TU 08/13/23 08/13/23 08/12/23 History subcutaneous pen injector (Trulicity) fenofibrate 54 mg tablet 54 mg PO QAM 08/13/23 08/13/23 08/13/23 History insulin aspart U-100 100 unit/mL See Protocol subcut QIDACHS 08/13/23 08/13/23 08/13/23 History (3 mL) subcutaneous pen omega-3 300 mg-dha 120 mg-epa 180 1 cap PO TID 08/13/23 08/13/23 08/13/23 History mg-fish oil 1,000 mg capsule Physical Exam 2 Vital Signs: Vital Signs: Last Vital Signs Temp 97.8 F 08/14/23 09:25 Pulse 79 08/14/23 09:31 Resp 20 08/14/23 09:25 BP 108/62 08/14/23 09:31 Pulse Ox 97 08/14/23 09:25 O2 Del Method Room Air 08/14/23 09:25 BMI result Body Mass Index 31.9 Const: General: comfortable and no acute distress O rientation/consciousness: patient oriented x3 HEENT: Other: Unremarkable Head: Yes normal to inspection Neck: Neck: Yes normal visual inspection Chest: Chest palpation & inspection: normal inspection of the chest Resp: Auscultation: clear to auscultation bilaterally Cardio: Palpation: normal PMI Heart sounds: S1 normal heart sound present, S2 normal heart sound present, no gallops, no murmurs and no rubs GI: Palpation (GI): Soft to palpation Back/Spine/Pelvis: Other: unremarkable Skin: General skin exam: no rashes or lesions noted Neuro: General: patient oriented x3 Extrem: General: Yes normal to inspection Psych: Mental Status: mental status grossly normal Objective Labs and Meds 08/14/23 05:12 08/14/23 05:12 Lab results: Laboratory Results - last 24 hr 08/13/23 08/13/23 08/13/23 15:39 15:49 16:16 WBC 8.4 RBC 4.88 Hgb 14.6 Hct 41.4 L MCV 84.8 MCH 29.9 MCHC 35.3 RDW 12.8 Plt Count 212 MPV 10.0 Immature Gran % (Auto) 0.5 H Neut % (Auto) 69.2 Lymph % (Auto) 20.9 [place] % (Auto) 6.8 Eos % (Auto) 2.2 Baso % (Auto) 0.4 Lymph # (Auto) 1.8 [place] # (Auto) 0.6 Eos # (Auto) 0.2 Baso # (Auto) 0.0 Abs Immat Gran (auto) 0.04 H Absolute Neuts (auto) 5.8 Absolute Nucleated RBC 0.000 Nucleated RBC % (auto) 0.0 PT 10.8 L INR 0.9 Sodium 139 Potassium 4.6 Chloride 101 Carbon Dioxide 23 Anion Gap 20 BUN 23 H Creatinine 2.03 H Estim Creat Clear Calc 46.8 Estimated GFR 35 POC Glucose 195 H Random Glucose 181 H Calcium 10.5 H D Total Bilirubin 0.3 AST 18 ALT 27 Alkaline Phosphatase 79 Troponin I High Sens < 2.7 B-Natriuretic Peptide 12 Total Protein 7.6 Albumin 4.3 Urine Color Yellow Urine Appearance Clear Urine pH 5.5 Ur Specific [place] 1.015 Urine Protein Negative Urine Glucose (UA) >=1000 H Urine Ketones Negative Urine Blood Negative Urine Nitrite Negative Ur Leukocyte Esterase Negative Urine RBC 0-2 Urine WBC 0-5 Ur Squamous Epith Cells 0-2 Urine Bacteria None Seen Hyaline Casts 3-5 08/13/23 08/14/23 08/14/23 20:32 05:12 07:18 WBC 6.7 RBC 4.68 Hgb 14.4 Hct 40.3 L MCV 86.1 MCH 30.8 MCHC 35.7 RDW 12.8 Plt Count 200 MPV 10.1 Immature Gran % (Auto) Neut % (Auto) Lymph % (Auto) [place] % (Auto) Eos % (Auto) Baso % (Auto) Lymph # (Auto) [place] # (Auto) Eos # (Auto) Baso # (Auto) Abs Immat Gran (auto) Absolute Neuts (auto) Absolute Nucleated RBC 0.000 Nucleated RBC % (auto) 0.0 PT INR Sodium 138 Potassium 4.0 Chloride 105 Carbon Dioxide 20 L Anion Gap 17 BUN 22 H Creatinine 1.63 H Estim Creat Clear Calc 58.2 Estimated GFR 45 POC Glucose 196 H 179 H Random Glucose 230 H Calcium 9.7 D Total Bilirubin AST ALT Alkaline Phosphatase Troponin I High Sens < 2.7 B-Natriuretic Peptide Total Protein Albumin Urine Color Urine Appearance Urine pH Ur Specific [place] Urine Protein Urine Glucose (UA) Urine Ketones Urine Blood Urine Nitrite Ur Leukocyte Esterase Urine RBC Urine WBC Ur Squamous Epith Cells Urine Bacteria Hyaline Casts ECG Interpretation: EKG shows sinus bradycardia 57/Min; left bundle-branch block pattern. Imaging Radiologist's impression: Impressions Chest X-Ray 08/13/23 14:28 IMPRESSION: No acute cardiopulmonary disease or interval change. Head CT 08/13/23 14:41 IMPRESSION: Mild focal swelling of the left parietal scalp. Otherwise unremarkable examination. No acute intracranial hemorrhage. Assessment and Plan (1) Syncope: Status: Acute (2) Nonischemic cardiomyopathy: Status: Acute (3) Biventricular ICD (implantable cardioverter-defibrillator) in place: Status: Acute (4) ICD (implantable cardioverter-defibrillator) lead failure: Status: Acute Plan Based on the last echocardiogram, LVEF 45-50%. Otherwise mostly unremarkable. With regard to labs, BUN is 22 and creatinine is 1.63. High sensitivity troponins are within range. Cardiac BNP is well within normal limits. In fact almost all his cardiac BNPs on record are well within range. Imaging studies also noted. Overall, feeling dizzy/presyncopal in context of lowish blood pressures but not profound hypotension. Based on cardiac BNP and overall symptoms, no evidence of heart failure decompensation. Due to ongoing dizzy feeling, we can cut back on the Entresto dosing. Listed to be on 97/103 mg b.i.d. but he states he does not take that does and not be just taking either 1 in the morning and half at nighttime or have both the times- somewhat confusing. Hence we can cut this dose to the lowest possible dose and hopefully that should help with this dizziness. Would like to at least continue other medications without changes. If he still however feels dizzy, may have to cut back on those as well. Discussed with significant other as well. Used senior cytogenetic technologist for this encounter. Discussed with Traci Alvarado. Time Spent With Patient Time: Total time managing care of this patient today ____ minutes. Procedures Date of Service Date of Service: 08/14/23
[2023-08-14 11:32] LABS: Glucose, Whole Blood 270 mg/dL (60-115)
--- NOTE | 2023-08-14 14:42 | MHC.CM.PN ---
PER RN/UR CM, Patient will be switched from OBSERVATION to INPATIENT. CM met with Patient at bedside and addressed IMM with him, providing Patient with the original and a copy has been placed on the chart.
--- NOTE | 2023-08-14 15:13 | HO.PM.IMPN ---
Subjective Subjective Date of Service: 08/14/23 Interval History: Orthostatic hypotension resolved Still dizzy at rest and with positional changes intermittently no palps, sob, cp Review of Systems Review of Systems: Yes all other systems are reviewed and are negative Physical Exam Vital Signs: Vital Signs: Last Vital Signs Temp 98.0 F 08/14/23 11:18 Pulse 78 08/14/23 11:18 Resp 20 08/14/23 11:18 BP 96/55 L 08/14/23 11:18 Pulse Ox 95 08/14/23 11:18 O2 Del Method Room Air 08/14/23 11:18 BMI result Body Mass Index 31.9 Constitutional - Awake and Alert, No apparent distress Eyes - PERRLA, EOMI Cardiovascular - S1S2, RRR, No edema Respiratory - Normal lung expansion, Normal respiratory effort, No respiratory distress, CTA bilaterally Extremities - no calf tenderness bilaterally, no swelling Skin - Warm/Dry Neurological - Alert & oriented x3, CN II-XII in tact Psychological - Appropriate affect Objective Data Active Medications Acetaminophen (Acetaminophen 325 Mg Tablet) 650 mg PO Q6H PRN PRN Reason: Pain, Mild (Pain Scale 1-3) Last Admin: 08/14/23 09:36 Dose: 650 mg Documented By: JAVID Dextrose (Dextrose 50 % 25 Gm/50 Ml Syringe) 25 gm IVPUSH Q15M PRN; Protocol PRN Reason: per Hypoglycemia Standing Ord. Enoxaparin Sodium (Enoxaparin Sodium 40 Mg/0.4 Ml Syringe) 40 mg SUBCUT Q24H [facility] Last Admin: 08/13/23 20:28 Dose: 40 mg Documented By: JANIE Glucose (Glucose Gel 15 Gm Gel..Gram.) 15 gm PO Q15M PRN; Protocol PRN Reason: per Hypoglycemia Standing Ord. Insulin Glargine (Insulin Glargine,Hum.Rec.Anlog 100 Unit/Ml 10 Ml Vial) 30 unit SUBCUT BEDTIME [facility] Last Admin: 08/13/23 21:28 Dose: 30 unit Documented By: JANIE Insulin Human Lispro (Insulin Lispro 100 Unit/Ml 3 Ml Vial) 0 unit SUBCUT QIDACHS [facility]; Protocol Last Admin: 08/14/23 11:42 Dose: 6 unit Documented By: JAVID Melatonin (Melatonin 3 Mg Tablet) 6 mg PO BEDTIME PRN PRN Reason: Insomnia Mirtazapine (Mirtazapine 15 Mg Tablet) 45 mg PO BEDTIME [facility] Last Admin: 08/13/23 22:24 Dose: Not Given Documented By: JANIE Non-Admin Reason: Patient Refused Ondansetron HCl (Ondansetron Hcl 4 Mg/2 Ml Vial) 4 mg IVPUSH Q8H PRN PRN Reason: Nausea and Vomiting Sodium Chloride (0.9 % Sodium Chloride Flush 3 Ml Syringe) 3 ml IVFLUSH QSHIFT [facility] Last Admin: 08/14/23 07:23 Dose: 3 ml Documented By: QUINCY Labs 08/14/23 05:12 08/14/23 05:12 Labs: Laboratory Results - last 24 hr 08/13/23 08/13/23 08/13/23 15:39 15:49 16:16 MCV 84.8 MCH 29.9 MCHC 35.3 RDW 12.8 Plt Count 212 MPV 10.0 Immature Gran % (Auto) 0.5 H Neut % (Auto) 69.2 Lymph % (Auto) 20.9 [place] % (Auto) 6.8 Eos % (Auto) 2.2 Baso % (Auto) 0.4 Lymph # (Auto) 1.8 [place] # (Auto) 0.6 Eos # (Auto) 0.2 Baso # (Auto) 0.0 Abs Immat Gran (auto) 0.04 H Absolute Neuts (auto) 5.8 Absolute Nucleated RBC 0.000 Nucleated RBC % (auto) 0.0 PT 10.8 L INR 0.9 Anion Gap 20 Estim Creat Clear Calc 46.8 Estimated GFR 35 POC Glucose 195 H Random Glucose 181 H Calcium 10.5 H D Total Bilirubin 0.3 AST 18 ALT 27 Alkaline Phosphatase 79 B-Natriuretic Peptide 12 Total Protein 7.6 Albumin 4.3 Urine Color Yellow Urine Appearance Clear Urine pH 5.5 Ur Specific [place] 1.015 Urine Protein Negative Urine Glucose (UA) >=1000 H Urine Ketones Negative Urine Blood Negative Urine Nitrite Negative Ur Leukocyte Esterase Negative Urine RBC 0-2 Urine WBC 0-5 Ur Squamous Epith Cells 0-2 Urine Bacteria None Seen Hyaline Casts 3-5 08/13/23 08/14/23 08/14/23 20:32 05:12 07:18 MCV 86.1 MCH 30.8 MCHC 35.7 RDW 12.8 Plt Count 200 MPV 10.1 Immature Gran % (Auto) Neut % (Auto) Lymph % (Auto) [place] % (Auto) Eos % (Auto) Baso % (Auto) Lymph # (Auto) [place] # (Auto) Eos # (Auto) Baso # (Auto) Abs Immat Gran (auto) Absolute Neuts (auto) Absolute Nucleated RBC 0.000 Nucleated RBC % (auto) 0.0 PT INR Anion Gap 17 Estim Creat Clear Calc 58.2 Estimated GFR 45 POC Glucose 196 H 179 H Random Glucose 230 H Calcium 9.7 D Total Bilirubin AST ALT Alkaline Phosphatase B-Natriuretic Peptide Total Protein Albumin Urine Color Urine Appearance Urine pH Ur Specific [place] Urine Protein Urine Glucose (UA) Urine Ketones Urine Blood Urine Nitrite Ur Leukocyte Esterase Urine RBC Urine WBC Ur Squamous Epith Cells Urine Bacteria Hyaline Casts 08/14/23 11:13 MCV MCH MCHC RDW Plt Count MPV Immature Gran % (Auto) Neut % (Auto) Lymph % (Auto) [place] % (Auto) Eos % (Auto) Baso % (Auto) Lymph # (Auto) [place] # (Auto) Eos # (Auto) Baso # (Auto) Abs Immat Gran (auto) Absolute Neuts (auto) Absolute Nucleated RBC Nucleated RBC % (auto) PT INR Anion Gap Estim Creat Clear Calc Estimated GFR POC Glucose 270 H Random Glucose Calcium Total Bilirubin AST ALT Alkaline Phosphatase B-Natriuretic Peptide Total Protein Albumin Urine Color Urine Appearance Urine pH Ur Specific [place] Urine Protein Urine Glucose (UA) Urine Ketones Urine Blood Urine Nitrite Ur Leukocyte Esterase Urine RBC Urine WBC Ur Squamous Epith Cells Urine Bacteria Hyaline Casts Assessment and Plan (1) Syncope: Status: Acute (2) Hypotension: Status: Acute (3) Orthostatic hypotension: Status: Acute Plan This is a 53-year-old male with pertinent history of congestive heart failure with reduced ejection fraction, essential hypertension, mixed hyperlipidemia, insulin-dependent diabetes mellitus, mood disorder who presents to the emergency department for evaluation of syncope. # orthostatic hypotension with syncope -likely multifactorial r/t medication and diarrhea -resolved with IV fluids -continue telemetry # lightheadedness- related to hypotension -persists -antihypertensives on hold -blood pressure improved to 115/66 on re-evaluation -resume antihypertensives a.m.. Reduce Entresto dose to 24/36 per Cardiology -encourage p.o. hydration -cardiology input appreciated #Chest discomfort, atypical -resolved -troponins unremarkable #Diarrhea- resolved #Congestive heart failure with reduced ejection fraction -No decompensation during admission -resume diuretics am #Insulin-dependent diabetes mellitus with hyperglycemia -dose adjusted basal insulin, Humalog on sliding scale -diabetic diet -POC glucose #Mood disorder -Continue home mood stabilizers DVT prophylaxis-Lovenox Full code Patient requires ongoing inpatient stay of at least 2 midnights for management of persistent lightheadedness and recent syncope with systolic blood pressure in the 90s requiring close monitoring as well as medication adjustment and expert consultation Time Spent With Patient Time: Total time managing care of this patient today ____ minutes. Quality Stroke Does the patient have a stroke diagnosis?: No VTE Prior VTE?: No VTE Risk Level:: Medical - moderate - high VTE Device Contraindication: Treatment Not Indicated VTE Drug Contraindication: N/A - Med Ordered
[2023-08-14] MEDS: Furosemide 40 MG TABLET 80 MG PO (16:15)
[2023-08-14] MEDS: Spironolactone 25 MG TABLET 12.5 MG PO (16:16)
[2023-08-14] MEDS: Empagliflozin 25 MG TABLET PO (16:16)
[2023-08-14] MEDS: Cholecalciferol (Vitamin D3) 25 MCG TABLET PO (16:16)
[2023-08-14] MEDS: Digoxin 0.25 MG TABLET PO (16:16)
[2023-08-14] MEDS: Fenofibrate 54 MG TABLET PO (16:22)
[2023-08-14 16:30] LABS: Glucose, Whole Blood 283 mg/dL (60-115)
[2023-08-14 19:38] LABS: Glucose, Whole Blood 268 mg/dL (60-115)
[2023-08-14] MEDS: Insulin Glargine,Hum.rec.anlog 100 UNIT/ML 10 ML VIAL 30 UNIT SUBCUT (20:17)
[2023-08-14] MEDS: carvediloL 12.5 MG TABLET PO (20:18)
[2023-08-14] MEDS: Mirtazapine 15 MG TABLET 45 MG PO (20:18)
[2023-08-14] MEDS: Enoxaparin Sodium 40 MG/0.4 ML SYRINGE SUBCUT (20:19)
[2023-08-15 03:54] VITALS: BP 129/59; PULSE 75; RESP 14; TEMP 36.5; O2SAT 96
[2023-08-15 05:43] LABS: MANUAL DIFF FLAG NO
[2023-08-15 05:46] LABS: Basophils Percent Auto 0.7 % (0-2); Eosinophils Absolute Auto 0.2 X10*3/uL (0.0-0.4); Eosinophils Percent Auto 3.4 % (0-4); Hematocrit 42.3 % (42.0-52.0); Hemoglobin 14.6 g/dl (14.0-18.0); Imm Gran Abs Auto 0.04 X10*3/uL (0.00-0.03); Imm Gran Pct Auto 0.7 % (0.0-0.4); Lymphocytes Absolute Auto 2.2 X10*3/uL (1.2-4.9); Mean Corpuscular HGB Conc 34.5 g/dl (31.0-36.0); Mean Corpuscular Hemoglobin 29.3 pg (27.0-33.0); Mean Corpuscular Volume 84.8 fL (80.0-98.0); Mean Platelet Volume 9.7 fL (9.4-12.4); Monocytes Absolute Auto 0.5 X10*3/uL (0.1-1.2); Monocytes Percent Auto 8.1 % (2-11); Neutrophils Absolute Auto 3.2 x10*3/uL (2.0-8.3); Neutrophils Percent Auto 52.1 % (45-73); Platelet Count 192 X10*3/uL (160-400); Red Blood Count 4.99 X10*6/uL (4.60-5.80); Red Cell Distribution Width 12.7 % (11.0-16.0); White Blood Count 6.2 X10*3/uL (4.8-10.8)
[2023-08-15 06:06] LABS: Anion Gap 18 (12-20); Blood Urea Nitrogen 25 mg/dL (9-16); Calcium 9.9 mg/dL (8.4-10.2); Carbon Dioxide 20 mmol/L (22-29); Chloride 104 mmol/L (96-108); Creatinine Clr Calc Pharmacy 59.2; Estimated Glomerular Filt Rate 46; Glucose Random 269 mg/dL (60-115); Potassium 4.1 mmol/L (3.3-5.1); Sodium 138 mmol/L (135-145)
[2023-08-15] MEDS: Omeprazole 40 MG CAPSULE.DR PO (06:08)
[2023-08-15 07:45] VITALS: BP 112/63; PULSE 83
[2023-08-15 08:00] VITALS: BP 107/67; PULSE 80; RESP 16; TEMP 36.1; O2SAT 96
[2023-08-15 08:13] LABS: Glucose, Whole Blood 294 mg/dL (60-115)
[2023-08-15 08:45] VITALS: BP 102/62; BP 109/64; PULSE 93; PULSE 99
[2023-08-15] MEDS: Spironolactone 25 MG TABLET 12.5 MG PO (09:04)
[2023-08-15] MEDS: Digoxin 0.25 MG TABLET PO (09:04)
[2023-08-15] MEDS: Aspirin Enteric Coated 81 MG TABLET.DR PO (09:05)
[2023-08-15] MEDS: Fenofibrate 54 MG TABLET PO (09:05)
[2023-08-15] MEDS: Sertraline HCL 100 MG TABLET 200 MG PO (09:05)
[2023-08-15] MEDS: carvediloL 12.5 MG TABLET PO (09:05)
[2023-08-15] MEDS: Empagliflozin 25 MG TABLET PO (09:05)
[2023-08-15] MEDS: Cholecalciferol (Vitamin D3) 25 MCG TABLET PO (09:05)
[2023-08-15] MEDS: Furosemide 40 MG TABLET 80 MG PO (09:05)
[2023-08-15] MEDS: Insulin Lispro 100 UNIT/ML 3 ML VIAL SUBCUT ×2 (09:07→11:53)
[2023-08-15] MEDS: 0.9 % Sodium Chloride Flush 3 ML SYRINGE IVFLUSH (09:11)
--- NOTE | 2023-08-15 10:38 | MHC.CM.PN ---
EMR reviewed and per MD rounds pt is medically cleared for dc. DP: Home, is at bedside and will transport, resume private pay [employer] services. IMM 08/14.
--- NOTE | 2023-08-15 10:55 | P.DS_ITS ---
DS: Providers Provider Date of Service: 08/15/23 Date of admission: 08/14/23 14:45 Primary care physician: Tor Villela MD Consults: 08/13/23 19:38 Consult to Cardiology Routine Consulting Provider: [facility] Reason for consultation: syncope Has provider been notified: Yes DS: Diagnosis Discharge Diagnosis (1) Syncope: Status: Acute (2) Hypotension: Status: Acute (3) Orthostatic hypotension: Status: Acute DS: Summary Hospital Course Hospital Course: Admission note HPI This is a 53-year-old male with pertinent history of congestive heart failure with reduced ejection fraction, essential hypertension, mixed hyperlipidemia, insulin-dependent diabetes mellitus, mood disorder who presents to the emergency department for evaluation of syncope. Patient states while he was getting up to go to the bathroom, he got dizzy/lightheaded and passed out. Patient's saw him lying on the floor. He was passed out for about 10 seconds. No rhythmic jerking movement of extremities prior to passing out. Patient states has been having loose stools, 5-6 episodes on the day of presentation. No vomiting. Patient also states he has been having chest discomfort at rest that has been ongoing for the last 1 week. Not relieved with rest but sometimes exacerbated with exertion. No fever, chills, palpitations, shortness of breath, abdominal pain, changes in urinary or bowel habits. In the emergency department, orthostatic vital signs noted to be positive and Cardiology was consulted who requested admission. Hospital course Treated for orthostatic hypotension with syncope with IV fluids and decreasing his home medicaitons doses of Carvedilol, Enteresto and Spironoloactone. Followed by bushel worker who recommended to keep all his medications but in a lower dose. repeated Orthostatic vitals were negative. To be followed as outpatient. Decrease Carvedilol, Enteresto and Spironolactone as prescribed Follow with cardiiology as outpatient take your time when changing position Monitor blood pressure at home and report readings for your PCP\Biomedical Scientist Time Spent with Patient Time attestation: Total time managing care of this patient today ____ minutes. Discharge coordination time: Less than 30 minutes Quality: Safe Use of Opioids Does Pt have an Active Cancer Diagnosis on the Problem List?: No Quality: Stroke Does the patient have a stroke diagnosis?: No Physical Exam Vital Signs: Vital Signs: Last Vital Signs Temp 97.0 F 08/15/23 08:00 Pulse 99 08/15/23 08:45 Resp 16 08/15/23 08:00 BP 109/64 08/15/23 08:45 Pulse Ox 96 08/15/23 08:00 O2 Del Method Room Air 08/15/23 08:00 BMI result Body Mass Index 31.9 Const: Other: Constitutional : Awake, interactive, not in distress Neck : Normal inspection, Supple Cardiovascular : RRR, no JVP, no lower extremity edema, pacemaker in place Respiratory : good bilateral air entry, no crackles, wheezes or rhonchi Gastrointestinal: soft, lax, Normal bowel sounds, Non tender Skin : Warm, Dry Neurological : Alert & oriented x3, No focal deficit DS: Data Data Completed and Pending Labs on day of discharge: Laboratory Results - last 24 hr 08/14/23 08/14/23 08/14/23 11:13 16:22 19:17 WBC RBC Hgb Hct MCV MCH MCHC RDW Plt Count MPV Immature Gran % (Auto) Neut % (Auto) Lymph % (Auto) [place] % (Auto) Eos % (Auto) Baso % (Auto) Lymph # (Auto) [place] # (Auto) Eos # (Auto) Baso # (Auto) Abs Immat Gran (auto) Absolute Neuts (auto) Absolute Nucleated RBC Nucleated RBC % (auto) Sodium Potassium Chloride Carbon Dioxide Anion Gap BUN Creatinine Estim Creat Clear Calc Estimated GFR POC Glucose 270 H 283 H 268 H Random Glucose Calcium 08/15/23 08/15/23 05:37 08:09 WBC 6.2 RBC 4.99 Hgb 14.6 Hct 42.3 MCV 84.8 MCH 29.3 MCHC 34.5 RDW 12.7 Plt Count 192 MPV 9.7 Immature Gran % (Auto) 0.7 H Neut % (Auto) 52.1 Lymph % (Auto) 35.0 [place] % (Auto) 8.1 Eos % (Auto) 3.4 Baso % (Auto) 0.7 Lymph # (Auto) 2.2 [place] # (Auto) 0.5 Eos # (Auto) 0.2 Baso # (Auto) 0.0 Abs Immat Gran (auto) 0.04 H Absolute Neuts (auto) 3.2 Absolute Nucleated RBC 0.000 Nucleated RBC % (auto) 0.0 Sodium 138 Potassium 4.1 Chloride 104 Carbon Dioxide 20 L Anion Gap 18 BUN 25 H Creatinine 1.58 H Estim Creat Clear Calc 59.2 Estimated GFR 46 POC Glucose 294 H Random Glucose 269 H Calcium 9.9 Imaging Chest x-ray: Radiologist's impression: ITS Impressions Chest X-Ray 08/13/23 14:28 IMPRESSION: No acute cardiopulmonary disease or interval change. Head CT 08/13/23 14:41 IMPRESSION: Mild focal swelling of the left parietal scalp. Otherwise unremarkable examination. No acute intracranial hemorrhage. Discharge Plan Discharge Anticipated Discharge Date/Time: 08/15/23 10:28 Patient Disposition: Home, Self-Care Discharge Diagnosis: Orthostatic hypotenstion Referrals: Tor Villela MD [Primary Care Provider] - 1 Week Discharge Medications: New carvedilol 12.5 mg Tablet 12.5 mg PO BID Qty: 60 0RF Protocol: Hold for SBP/HR < HOLD for SBP < : 90 HOLD for HR < : 60 spironolactone 25 mg Tablet 12.5 mg PO DAILY Qty: 30 0RF Protocol: Hold for SBP< HOLD for SBP < : 90 Entresto 24-26 mg Tablet 1 tab PO BID Qty: 30 0RF Protocol: Hold for SBP< HOLD for SBP < : 90 Continued metformin 500 mg tablet 500 mg PO BID Qty: 60 6RF Jardiance 25 mg tablet 25 mg PO QAM Qty: 30 6RF (DME) FreeStyle Lite Strips Strip See Rx Instructions .ROUTE .MEDSUPPLY Qty: 150 11RF Rx Instructions: As directed four times a day digoxin 250 mcg (0.25 mg) tablet 250 mcg PO QAM Qty: 90 3RF furosemide 80 mg tablet 80 mg PO QAM Qty: 90 3RF Corlanor 7.5 mg tablet 7.5 mg PO BID Qty: 60 5RF albuterol sulfate 90 mcg/actuation aerosol powdr breath activated 2 inh inhalation Q4-6H PRN (Reason: shortness of breath or wheezing) Qty: 1 0RF acetaminophen [Tylenol Extra Strength] 500 mg tablet 1,000 mg PO QID PRN (Reason: fever or pain) Qty: 14 0RF albuterol sulfate 2.5 mg /3 mL (0.083 %) solution for nebulization 2.5 mg inhalation TID PRN (Reason: wheezing) fenofibrate 54 mg tablet 54 mg PO QAM Trulicity 1.5 mg/0.5 mL pen injector 1.5 mg subcut TU omega 2-oed-pcz-fish oil 300 mg (120 mg- 180mg)-1,000 mg capsule 1 cap PO TID insulin aspart U-100 100 unit/mL (3 mL) insulin pen See Protocol subcut QIDACHS Protocol: Insulin Correction Scale Less than or equal to 110 ---- Give (units): 0 111 to 150 Give (units): 0 151 to 200 Give (units): 2 201 to 250 Give (units): 4 251 to 300 Give (units): 6 301 to 350 Give (units): 8 Greater than 350 Give (units): 10 Call MD if Blood Glucose > : 350 cholecalciferol (vitamin D3) 25 mcg (1,000 unit) tablet 25 mcg PO QAM sertraline 100 mg tablet 200 mg PO DAILY insulin glargine 100 unit/mL solution 40 unit subcut BEDTIME (DME) lancets [TRUEplus Lancets] 33 gauge misc See Rx Instructions .ROUTE .MEDSUPPLY Qty: 200 11RF Rx Instructions: Four times a day mirtazapine 45 mg tablet 45 mg PO BEDTIME hydroxyzine pamoate 50 mg capsule 50 mg PO BEDTIME PRN (Reason: Anxiety) omeprazole 40 mg capsule,delayed release(DR/EC) 40 mg PO DAILY (DME) pen needle, diabetic [Pentips] 32 gauge x 32 needle See Rx Instructions .ROUTE TID Qty: 50 Rx Instructions: As directed (DME) FreeStyle Garrick 2 Pinnacle Misc See Rx Instructions .ROUTE .MEDSUPPLY Qty: 1 0RF Rx Instructions: As directed (DME) FreeStyle Gar[place] 2 Sensor Kit See Rx Instructions .ROUTE .MEDSUPPLY Qty: 2 11RF Rx Instructions: As directed every 2 weeks aspirin 81 mg tablet,delayed release (DR/EC) 81 mg PO DAILY Discontinued Entresto 97-103 mg tablet 1 tab PO BID Qty: 60 5RF carvedilol 25 mg tablet 50 mg PO BID 30 Days Qty: 120 5RF spironolactone 25 mg tablet 25 mg PO QAM Qty: 90 3RF Discharge Orders: Discharge Order (Routine); Ordered 08/15/23 Ordered By: Yanely Gallardo Diet: Advance to usual diet Activity on Discharge: As tolerated Stand Alone Forms: Patient Portal Discharge page Care Plan Goals: Read below Health Concerns: Read below Plan of Treatment: Read below Assessment: You were treated for low blood pressures readings. evaluated by bushel worker. Decrease Carvedilol, Enteresto and Spironolactone as prescribed Follow with cardiiology as outpatient take your time when changing position Monitor blood pressure at home and report readings for your PCP\Biomedical Scientist
[2023-08-15 11:28] LABS: Glucose, Whole Blood 228 mg/dL (60-115)
[2023-08-15 11:41] VITALS: BP 110/67; PULSE 80; RESP 18; TEMP 36.1; O2SAT 94
== END 2023-08-15 12:06 | disposition home or self-care (01) | DRG 312 ==
LOC: HO.ED 19:39 → HO.EDOVER 19:43 → HO.IMC 08-14 07:45
PROVIDERS: Physician Assistant; Registered Nurse Emergency; Admitting Provider Student in an Organized Health Care Education/Training Program; Emergency Provider Emergency Medicine Emergency Medical Services; PCP Internal Medicine; Visit Provider Student in an Organized Health Care Education/Training Program
DX: I95.1 Orthostatic hypotension (principal); I42.8 Other cardiomyopathies; I50.22 Chronic systolic (congestive) heart failure; G47.33 Obstructive sleep apnea (adult) (pediatric); E78.2 Mixed hyperlipidemia; I11.0 Hypertensive heart disease with heart failure; E11.65 Type 2 diabetes mellitus with hyperglycemia; Z95.810 Presence of automatic (implantable) cardiac defibrillator; Z79.82 Long term (current) use of aspirin; Z79.4 Long term (current) use of insulin; Z79.84 Long term (current) use of oral hypoglycemic drugs; Z79.899 Other long term (current) drug therapy
CPT/HCPCS: 36415; 70450; 71046; 80048; 80053; 81001; 82947; 83880; 84484; 85025; 85027; 85610; 93005; 99285; J1650

== ENCOUNTER → 2023-08-13 19:37 | Outpatient (BNV) | payer OTHER, SELFPAY | PROVIDERS: Admitting Provider Student in an Organized Health Care Education/Training Program; Emergency Provider Emergency Medicine Emergency Medical Services; PCP Internal Medicine; Visit Provider Internal Medicine | DX: R55 Syncope and collapse (principal); I42.8 Other cardiomyopathies; Z95.810 Presence of automatic (implantable) cardiac defibrillator; T82.110A Breakdown (mechanical) of cardiac electrode, initial encounter | CPT/HCPCS: 99223 ==

== ENCOUNTER → 2023-08-13 19:37 | Outpatient (BNV) | payer OTHER, SELFPAY | PROVIDERS: Admitting Provider Student in an Organized Health Care Education/Training Program; Emergency Provider Emergency Medicine Emergency Medical Services; PCP Internal Medicine; Visit Provider Student in an Organized Health Care Education/Training Program | DX: I95.9 Hypotension, unspecified (principal); I95.1 Orthostatic hypotension | CPT/HCPCS: 99222; 99232; 99238 ==

== ENCOUNTER → 2023-08-20 23:59 | Outpatient (BNV) | payer OTHER, SELFPAY ==
--- NOTE | 2023-09-08 12:05 | A.OFFVIS_ITS ---
Intake Intake Visit Reasons: Remote ICD Check- [employer] Allergies No Known Allergies [No Known Allergies*] Allergy (Verified 09/05/23 13:20) [facility] Medical History (Updated 09/05/23 @ 15:12 by Gabbi Lopez CNP) ICD (implantable cardioverter-defibrillator) lead failure Biventricular ICD (implantable cardioverter-defibrillator) in place GERD (gastroesophageal reflux disease) Asthma NANO (obstructive sleep apnea) Obesity due to excess calories HLD (hyperlipidemia) Type 2 diabetes mellitus with chronic kidney disease Heart failure with reduced ejection fraction Implantable cardioverter-defibrillator lead failure Nonischemic cardiomyopathy High cholesterol Diabetes HTN (hypertension) Pacemaker Surgical History History of tonsillectomy Hx of cardiac cath Hx of transesophageal echocardiography (DAWN) for monitoring History of permanent cardiac pacemaker placement (~2008) History of circumcision Family History Father HTN (hypertension) Diabetes CVD (cardiovascular disease) Hypercholesterolemia Mother Hypercholesterolemia HTN (hypertension) Diabetes Social History Household Members: Significant Other Household Members Other:: SO:Thu Alcohol intake: current Alcohol intake frequency: 3 or more drinks per day Patient Tobacco Use Status: Never used Tobacco Tobacco use type: Cigarette service: No Office Procedures Cardiac Device Check Cardiac Device Check Details: Remote ICD report generated 08/26/2023. ICD function is adequate [id number] Cardiac Interrogation, implant defibrillator w/interim Procedure code (CPT) selection complete Coding Level of Care Code Procedure Only CPT Codes Cardiac Device Check - Cardiac Device 13: [id number] Cardiac Interrogation, implant defibrillator w/interim ([id number])
== END ==
PROVIDERS: PCP Internal Medicine; Visit Provider Internal Medicine Cardiovascular Disease
DX: I42.9 Cardiomyopathy, unspecified (principal); Z95.810 Presence of automatic (implantable) cardiac defibrillator
CPT/HCPCS: 93295

== ENCOUNTER 2023-09-04 10:48 | Outpatient (AMB) | payer OTHER, SELFPAY ==
[2023-09-04 11:20] VITALS: BP 80/60; PULSE 69; BMI 30.4
--- NOTE | 2023-09-04 11:20 | HO.NEPHOV_ITS ---
HPI HPI Comments History of Present Illness Details I had the privilege of seeing Ian in follow-up his chronic kidney disease. He has cardiomyopathy. He is followed up in [place] for his heart issues. His diabetic control is better. He is now compliant with medications. His was physically present during the encounter. He denies any chest pain, shortness of breath, nausea, vomiting, diarrhea, pedal edema or dizziness. He denies taking nonsteroidal anti-inflammatory medications. His recent serum creatinine was 1.58. [facility] Medical History GERD (gastroesophageal reflux disease) Asthma NANO (obstructive sleep apnea) Obesity due to excess calories HLD (hyperlipidemia) Type 2 diabetes mellitus with chronic kidney disease Heart failure with reduced ejection fraction Implantable cardioverter-defibrillator lead failure Nonischemic cardiomyopathy High cholesterol Diabetes HTN (hypertension) Pacemaker Surgical History History of tonsillectomy Hx of cardiac cath Hx of transesophageal echocardiography (DAWN) for monitoring History of permanent cardiac pacemaker placement (~2008) History of circumcision Family History Father HTN (hypertension) Diabetes CVD (cardiovascular disease) Hypercholesterolemia Mother Hypercholesterolemia HTN (hypertension) Diabetes Social History Household Members: Significant Other Household Members Other:: SO:Thu Alcohol intake: current Alcohol intake frequency: 3 or more drinks per day Patient Tobacco Use Status: Never used Tobacco Tobacco use type: Cigarette service: No Vital Signs 09/04/23 11:20 Height 5 ft 8 in Weight 200 lb 2 oz BMI 30.4 BP 80/60 L Blood Pressure Location Lt brachial Position Sitting Pulse 69 Pulse Source Pulse Oximeter Physical Exam Vital Signs: Last Vital Signs Pulse 69 09/04/23 11:20 BP 80/60 L 09/04/23 11:20 BMI result Body Mass Index 30.4 Const General: comfortable and no acute distress Orientation/consciousness: patient oriented x3 HEENT Head: Yes normocephalic Mouth: Normal oral and palatal mucosa present Eyes EOM: EOMs intact bilaterally Neck Neck: Yes supple Resp Auscultation: clear to auscultation bilaterally Cardio Jugular venous distension: no JVD Rate: regular rate Heart sounds: Murmur heart sound present GI Palpation (GI): Soft to palpation Auscultation: normal bowel sounds General: Yes no CVA tenderness Back/Spine/Pelvis Back: no CVA tenderness Skin General skin exam: no rashes or lesions noted Neuro General: patient oriented x3 and moves all extremities Extrem General: Yes no pedal edema Assessment & Plan Assessment & Plan (1) CKD stage G3b/A1, GFR 30-44 and albumin creatinine ratio <30 mg/g: Code(s): N18.32 - Chronic kidney disease, stage 3b Gerri Sosa has chronic kidney disease at baseline. He recently had a acute kidney injury which has been resolved. His serum creatinine has settled down to 1.58. His blood sugar control is better. He is on Jardiance. He is followed up closely in [place] for his cardiomyopathy. If his cardiac function and renal function decline he will need evaluation for heart and kidney transplantation. I reiterated the need for compliance with medications and keeping his blood sugar at goal. He is tolerating Entresto. He is also on spironolactone as well. His volume status is optimal. He should avoid nonsteroidal anti- inflammatory medications. All his and his 's questions were answered. Follow-up blood work and urine studies were ordered. Follow-up appointment was given. Time for the condition, patient care and retrieval of data 34 minutes. Orders: Orders Electrolytes 09/04/23 N18.32 - Chronic kidney disease, stage 3b Creatinine 09/04/23 N18.32 - Chronic kidney disease, stage 3b Calcium 09/04/23 N18.32 - Chronic kidney disease, stage 3b Complete Blood Count Auto Diff 09/04/23 N18.32 - Chronic kidney disease, stage 3b Protein Creatinine Ratio, Ur 09/04/23 N18.32 - Chronic kidney disease, stage 3b Blood Urea Nitrogen 09/04/23 N18.32 - Chronic kidney disease, stage 3b Coding Level of Care Code Est Pt Level 4 (71538) Diagnoses CKD stage G3b/A1, GFR 30-44 and albumin creatinine ratio <30 mg/g N18.32
== END 2023-09-04 11:38 | disposition home or self-care (01) ==
PROVIDERS: PCP Internal Medicine; Visit Provider Internal Medicine Nephrology
DX: N18.32 Chronic kidney disease, stage 3b (principal)
CPT/HCPCS: 99214

== ENCOUNTER → 2023-09-04 10:48 | Outpatient (BNVA) | payer OTHER, SELFPAY | PROVIDERS: PCP Internal Medicine; Visit Provider Internal Medicine Nephrology | DX: N18.32 Chronic kidney disease, stage 3b (principal); E11.22 Type 2 diabetes mellitus with diabetic chronic kidney disease; I42.9 Cardiomyopathy, unspecified | CPT/HCPCS: 99212 ==

== ENCOUNTER 2023-09-05 12:52 | Outpatient (AMB) | payer OTHER, SELFPAY ==
--- NOTE | 2023-09-05 13:13 | MHC.OFFVIS ---
Intake Vital Signs 09/05/23 13:14 Height 5 ft 8 in Weight 202 lb 2 oz BMI 30.7 BP 102/56 L Blood Pressure Location Rt brachial Position Sitting Respiration 16 Pulse 66 Pulse Source Pulse Oximeter Pulse Oximetry (%) 97 Oxygen Delivery Method Room Air Intake Visit Reasons: E-[employer] ARTILLERY: NANO -Confirmed Intake Note: Pt presents to the office for follow up NANO. He reports he has not been compliant with his CPAP. He has not been using it for almost a year. His states he is still having episodes and snoring a lot. Mandarin Tutor Required: No Allergies No Known Allergies [No Known Allergies*] Allergy (Verified 09/05/23 13:20) HPI HPI Comments History of Present Illness Details 53 male patient presents for new in-person visit to manage sleep apnea. Pt reports that he was diagnosed with NANO 3-4 years ago, started CPAP. The CPAP tubing was broken but he has not received the supplies and stopped using it, about an year ago. Pt does not know the current CPAP setting. The CPAP works well. His home care company is [employer]. He continues to have snoring, gasping, and frequent arousals. He is having non refreshing sleep and daytime sleepiness. Sleep questionnaire: Have you ever been diagnosed with a sleep disorder? Yes. NANO. Have you ever had a sleep study in the past? Yes. Have you ever been treated for a sleep disorder? Yes, CPAP, but stopped using it about an year ago. Do you take medications for a sleep disorder? Mirtazapine 45 mg. Do you snore? Yes. Do you wake up gasping at night? Yes. Do you have episodes of apneas? Yes. If yes, are they witnessed? Do you have episodes of nocturnal chest pain or dyspnea? Do you have difficulty initiating sleep? Yes. Do you have difficulty maintaining sleep? Yes. Do you wake up tired? Yes. Do you have headaches upon awakening? Yes, sometimes. Do you wake up with dry mouth or throat? Yes. Do you have GERD? Yes. Do you have nocturia? Yes. Do you have nocturnal leg cramps? No. Do you have symptoms of restless legs? Yes. Do you act out your dreams? No. Sleep hygiene questionnaire: What is your usual sleep routine? Usual bedtime is at 7 pm; Usual wake up time is at 5-6 am. Do you take naps? Yes, occasionally. Is your sleep environment cool, dark, and quiet? Yes. Do you exercise? Yes, gym, almost every day. Do you take caffeine or other stimulants? Coffee in the morning. Do you use electronics in bed? No. What is your work schedule? N/A. Hypersomnolence questionnaire: Do you have daytime tiredness or fatigue? Yes. Do you easily fall asleep when inactive? Yes. Have you ever had episodes of sudden weakness? No. Have you ever had episodes of sudden weakness associated with strong emotions? No. PFSH Medical History (Updated 09/05/23 @ 15:12 by Gabbi Lopez CNP) ICD (implantable cardioverter-defibrillator) lead failure Biventricular ICD (implantable cardioverter-defibrillator) in place GERD (gastroesophageal reflux disease) Asthma NANO (obstructive sleep apnea) Obesity due to excess calories HLD (hyperlipidemia) Type 2 diabetes mellitus with chronic kidney disease Heart failure with reduced ejection fraction Implantable cardioverter-defibrillator lead failure Nonischemic cardiomyopathy High cholesterol Diabetes HTN (hypertension) Pacemaker Surgical History History of tonsillectomy Hx of cardiac cath Hx of transesophageal echocardiography (DAWN) for monitoring History of permanent cardiac pacemaker placement (~2008) History of circumcision Family History Father HTN (hypertension) Diabetes CVD (cardiovascular disease) Hypercholesterolemia Mother Hypercholesterolemia HTN (hypertension) Diabetes Social History Household Members: Significant Other Household Members Other:: SO:Thu Alcohol intake: current Alcohol intake frequency: 3 or more drinks per day Patient Tobacco Use Status: Never used Tobacco Tobacco use type: Cigarette service: No Review of Systems Const All systems reviewed & are unremarkable except as noted in HPI and below ENT Reports Normal hearing present Neuro Reports Normal hearing present Physical Exam Vital Signs: Last Vital Signs Pulse 66 09/05/23 13:14 Resp 16 09/05/23 13:14 BP 102/56 L 09/05/23 13:14 Pulse Ox 97 09/05/23 13:14 Oxygen Delivery Method Room Air 09/05/23 13:14 BMI result Body Mass Index 30.7 Const General: cooperative Nutritional Appearance: obese Orientation/consciousness: patient oriented x3 Limitations: language barrier Neck Neck: Yes full ROM and Yes supple Resp Effort & Inspection: normal respiratory effort and able to speak in complete sentences Neuro General: patient oriented x3 and gait normal Cranial nerves: Yes Bilaterally intact EOM present, Yes Normal facial strength present, Yes Midline tongue present, Yes Symmetric palate elevation present, Yes Normal hearing present, Yes Ability to bilaterally rotate head present and Yes Ability to bilaterally elevate shoulders present Cognition (Neuro): normal cognition Gait exam (Neuro): Normal gait present Motor exam (neuro): 5/5 motor strength present throughout, Pronator motor function not present and no tremor noted Psych Appearance: grossly normal Mental Status: mental status grossly normal Speech and movement: Normal speech and movement present Affect: normal affect Attitude: cooperative Assessment & Plan Assessment & Plan (1) NANO (obstructive sleep apnea): Code(s): G47.33 - Obstructive sleep apnea (adult) (pediatric) Plan CPAP supply prescription sent to [facility], [place], and also provided the copy of the prescription to patient. Advised patient to restart CPAP. Stressed compliance, use CPAP nightly and more than 4 hrs. Wt reduction advised. Coding Level of Care Code New Pt Level 3 (39894) Diagnoses NANO (obstructive sleep apnea) G47.33
[2023-09-05 13:14] VITALS: BP 102/56; PULSE 66; RESP 16; O2SAT 97; BMI 30.7
== END 2023-09-05 13:53 | disposition home or self-care (01) ==
PROVIDERS: PCP Internal Medicine; Visit Provider Nurse Practitioner Family
DX: G47.33 Obstructive sleep apnea (adult) (pediatric) (principal)
CPT/HCPCS: 99203

== ENCOUNTER → 2023-09-05 12:52 | Outpatient (BNVA) | payer OTHER, SELFPAY | PROVIDERS: PCP Internal Medicine; Visit Provider Nurse Practitioner Family | DX: G47.33 Obstructive sleep apnea (adult) (pediatric) (principal) | CPT/HCPCS: 99202 ==

== ENCOUNTER 2023-09-09 07:32 | Outpatient (REF) | payer OTHER, SELFPAY ==
[2023-09-09 08:47] LABS: Anion Gap 18 (12-20); Blood Urea Nitrogen 18 mg/dL (9-16); Calcium 10.7 mg/dL (8.4-10.2); Carbon Dioxide 27 mmol/L (22-29); Chloride 103 mmol/L (96-108); Estimated Glomerular Filt Rate 40; Glucose Random 205 mg/dL (60-115); Potassium 4.6 mmol/L (3.3-5.1); Sodium 143 mmol/L (135-145)
[2023-09-09 08:49] LABS: Cholesterol 204 mg/dL (<200); HDL Cholesterol 34 mg/dL (>40); Triglycerides 448 mg/dL (<150)
[2023-09-09 09:20] LABS: Reflex LDLD? Yes
[2023-09-11 01:58] LABS: LDL Cholesterol Direct 105 mg/dL (<100)
== END 2023-09-09 07:33 | disposition home or self-care (01) ==
LOC: HO.LAB 07:32
PROVIDERS: Absent Provider Internal Medicine; PCP Internal Medicine; Visit Provider Internal Medicine Nephrology
DX: E78.1 Pure hyperglyceridemia (principal); I10 Essential (primary) hypertension
CPT/HCPCS: 36415; 80048; 80061; 83721; 99212

== ENCOUNTER 2023-09-09 08:05 | Outpatient (AMB) | payer OTHER, SELFPAY ==
[2023-09-09 08:43] VITALS: BP 100/62; PULSE 81
--- NOTE | 2023-09-09 08:43 | A.OFFVIS_ITS ---
Intake Vital Signs 09/09/23 08:43 Height 5 ft 8 in Weight 197 lb 8.547 oz BMI 30.0 BP 100/62 Blood Pressure Location Lt brachial Position Sitting Pulse 81 Pulse Source Pulse Oximeter Intake Visit Reasons: f/u [facility] Plunger Scoop Operator Required: Yes Plunger Scoop Operator Language: Rocket Test Fire Worker Name: yennifer dawson [id number] Student Union Consultant: Student Union Consultant Present Accompanied by: Significant Other Allergies No Known Allergies [No Known Allergies*] Allergy (Verified 09/09/23 08:46) Medication List - Last Reconciled 09/09/23 by CONCHITA Davies acetaminophen (Tylenol Extra Strength) 1,000 mg (2 x 500 mg) PO QID PRN albuterol sulfate 90 mcg/actuation 2 inhalations inhalation Q4-6H PRN albuterol sulfate 2.5 mg inhalation TID PRN aspirin 81 mg PO DAILY blood sugar diagnostic (FreeStyle Lite Strips) As directed four times a day carvedilol 12.5 mg See Protocol PO BID cholecalciferol (vitamin D3) 25 mcg PO QAM digoxin 250 mcg PO QAM dulaglutide (Trulicity) 1.5 mg subcut TU empagliflozin (Jardiance) 25 mg PO QAM fenofibrate 54 mg PO QAM flash glucose scanning reader (FreeStyle Garrick 2 Se[place]our) As directed flash glucose sensor (FreeStyle Garrick 2 Sensor kit) As directed every 2 weeks furosemide 80 mg PO QAM hydroxyzine pamoate 50 mg PO BEDTIME PRN insulin aspart U-100 See Protocol sliding scale doses subcut QIDACHS insulin glargine 40 units subcut BEDTIME ivabradine (Corlanor) 7.5 mg PO BID lancets (TRUEplus Lancets) Four times a day metformin 500 mg PO BID mirtazapine 45 mg PO BEDTIME omega 6-bhl-ozz-fish oil 300 mg (120 mg- 180mg)-1,000 mg 1 cap PO TID omeprazole 40 mg PO DAILY pen needle, diabetic (Pentips) As directed sacubitril-valsartan 24-26 mg (Entresto) 1 tab See Protocol PO BID sertraline 200 mg PO DAILY spironolactone 12.5 mg See Protocol PO DAILY HPI f/u [facility] HPI Details Ian is a 53-year-old male with past medical history of hypertension, hyperlipidemia, obstructive sleep apnea, nonischemic cardiomyopathy, Bi V ICD who was recently seen in the emergency room for a syncopal event. He was treated with IV fluids and reduction in his medication doses. Today he reports that he feels well overall with no concerning symptoms. He denies recurrent lightheadedness, presyncope, syncope, falls. No chest discomfort at rest or with activity. At times he will feel heart palpitations and fatigue. No shortness of breath, PND, orthopnea or edema. He feels he tires easy with exercise. Is interested in going to the gym. He says he was recently seen at [facility] and they are planning to change his pacemaker. is present. [facility] Medical History (Updated 09/09/23 @ 10:45 by Sue Diallo NP-C) ICD (implantable cardioverter-defibrillator) lead failure Biventricular ICD (implantable cardioverter-defibrillator) in place Nonischemic cardiomyopathy GERD (gastroesophageal reflux disease) Asthma NANO (obstructive sleep apnea) Obesity due to excess calories HLD (hyperlipidemia) Type 2 diabetes mellitus with chronic kidney disease Heart failure with reduced ejection fraction Implantable cardioverter-defibrillator lead failure High cholesterol Diabetes HTN (hypertension) Pacemaker Surgical History History of tonsillectomy Hx of cardiac cath Hx of transesophageal echocardiography (DAWN) for monitoring History of permanent cardiac pacemaker placement (~2008) History of circumcision Family History Father HTN (hypertension) Diabetes CVD (cardiovascular disease) Hypercholesterolemia Mother Hypercholesterolemia HTN (hypertension) Diabetes Social History Household Members: Significant Other Household Members Other:: SO:Thu Alcohol intake: current Alcohol intake frequency: 3 or more drinks per day Patient Tobacco Use Status: Never used Tobacco Tobacco use type: Cigarette service: No Review of Systems Const Details: fatigue All systems reviewed & are unremarkable except as noted in HPI and below ENT Denies dizziness Card Details: heart palpitations Denies chest pain, Denies chest pain at rest, Denies chest pain with activity, Denies rapid heart rate, Denies pedal edema, Denies edema, Denies leg edema, Denies lightheadedness, Denies palpitations, Denies dyspnea, Denies dyspnea on exertion and Denies orthopnea Resp Details: gasping in night. Has been without his mask as it broke. Denies cough, Denies dyspnea and Denies dyspnea on exertion GI Denies hematochezia and Denies change in stool character Musc Denies abnormal gait, Denies limited range of motion, Denies muscle cramps, Denies muscle weakness, Denies numbness, Denies radiating pain into limb, Denies stiffness and Denies tingling Neuro Denies abnormal gait, Denies dizziness, Denies numbness and Denies tingling Endo Denies palpitations Physical Exam Vital Signs: Last Vital Signs Pulse 81 09/09/23 08:43 BP 100/62 09/09/23 08:43 BMI result Body Mass Index 30.0 Assessment & Plan Assessment & Plan (1) Nonischemic cardiomyopathy: Comment: Follows with Dr Nielson and at [facility] Code(s): I42.8 - Other cardiomyopathies Plan: History of nonischemic cardiomyopathy. Prior cardiac catheterizations showed normal coronary arteries. Last echocardiogram done 06/12/2023 showing EF 45-50%, mildly dilated left atrium, normal valves, normal RV. He follows with [facility] heart failure clinic and recently reports visit with Dr. Solis. He was seen in the emergency room last week with syncopal event. He was found to be hypotensive and treated with a L of IV fluid. The doses of his carvedilol, Entresto and spironolactone were reduced. Blood pressure is still low today however he denies having any recurrent presyncope or syncope. On examination has no clinical signs of decompensated heart failure. He denies shortness of breath or leg edema. Will continue meds at current doses. Continue carvedilol and Entresto for neurohormonal modulation. Continue Corlanor, Aldactone, digoxin. Last digoxin level in our system 05/07/2022 was 0.7. Will order digoxin level to be done with next lab draw. Due to low blood pressure and recent med changes. Will have him follow-up in our office in 3-4 months for re- evaluation of blood pressure, heart failure. (2) Biventricular ICD (implantable cardioverter-defibrillator) in place: Code(s): Z95.810 - Presence of automatic (implantable) cardiac defibrillator Plan: [employer] Bi V ICD in place. LV lead not functioning properly, this is previously known. RA and RV leads are normal. He tells me that when he went to [facility] Dr. Solis is making arrangements to have him have a device change. Will work on obtaining his records to see plan of care. (3) ICD (implantable cardioverter-defibrillator) lead failure: Code(s): T82.110A - Breakdown (mechanical) of cardiac electrode, initial encounter Qualifiers: Encounter type: subsequent encounter Qualified Code(s): T82.110D - Breakdown (mechanical) of cardiac electrode, subsequent encounter Plan: Remote monitoring in use. Office interrogation will be due next visit (4) NANO (obstructive sleep apnea): Code(s): G47.33 - Obstructive sleep apnea (adult) (pediatric) Plan: He reports compliance with his CPAP however it recently broke. He is waiting for replacement equipment at this time. (5) HTN (hypertension): Code(s): I10 - Essential (primary) hypertension Qualifiers: Hypertension type: primary hypertension Qualified Code(s): I10 - Essential (primary) hypertension Plan: Blood pressure on low side, asymptomatic at present. He was seen in the emergency room last week for syncope which occurred when he got out of bed to use the bathroom. Most likel hypotensive event. Medications affecting blood pressure have been reduced. (6) High cholesterol: Code(s): E78.00 - Pure hypercholesterolemia, unspecified Coding Level of Care Code Est Pt Level 4 (94398) Diagnoses Nonischemic cardiomyopathy I42.8 Biventricular ICD (implantable cardioverter-defibrillator) in place Z95.810 Failure of implantable cardioverter-defibrillator (ICD) lead, subsequent encounter T82.110D Encounter type: subsequent encounter NANO (obstructive sleep apnea) G47.33 Primary hypertension I10 Hypertension type: primary hypertension High cholesterol E78.00 Time Spent (min) 30
== END 2023-09-09 09:16 | disposition home or self-care (01) ==
PROVIDERS: PCP Internal Medicine; Visit Provider Nurse Practitioner Family
DX: I42.8 Other cardiomyopathies (principal); Z95.810 Presence of automatic (implantable) cardiac defibrillator; T82.110D Breakdown (mechanical) of cardiac electrode, subsequent encounter; G47.33 Obstructive sleep apnea (adult) (pediatric); I10 Essential (primary) hypertension; E78.00 Pure hypercholesterolemia, unspecified
CPT/HCPCS: 99214

== ENCOUNTER 2023-09-11 08:59 | Outpatient (AMB) | payer OTHER, SELFPAY ==
--- NOTE | 2023-09-11 09:08 | MHC.OFFVIS ---
Intake Intake Visit Reasons: Inj - right knee injection, last inj 02/27/23 Intake Note: Ian is a 53 year old male who presents today for a injection for his right knee, last injection 02/27/23. Patient reports his last injection gave him 3 + months of relief. He is having complaints of right ankle pain which started before his knee pain. Allergies No Known Allergies [No Known Allergies*] Allergy (Verified 09/11/23 09:20) HPI Inj - right knee injection, last inj 02/27/23 HPI Details 53-year-old male, who is Danish speaking, presents in the office today for a follow up of right knee pain. The patient had a cortisone injection in the right knee on 02/27/2023. He reports 3+ months of relief. The patient reports having right ankle pain that began before the right knee pain. Patient has a significant medical history of diabetes mellitus. [facility] Medical History (Updated 09/11/23 @ 09:24 by Enid Borjas) ICD (implantable cardioverter-defibrillator) lead failure Biventricular ICD (implantable cardioverter-defibrillator) in place Nonischemic cardiomyopathy GERD (gastroesophageal reflux disease) Asthma NANO (obstructive sleep apnea) Obesity due to excess calories HLD (hyperlipidemia) Type 2 diabetes mellitus with chronic kidney disease Heart failure with reduced ejection fraction Implantable cardioverter-defibrillator lead failure High cholesterol Diabetes HTN (hypertension) Pacemaker Surgical History History of tonsillectomy Hx of cardiac cath Hx of transesophageal echocardiography (DAWN) for monitoring History of permanent cardiac pacemaker placement (~2008) History of circumcision Family History Father HTN (hypertension) Diabetes CVD (cardiovascular disease) Hypercholesterolemia Mother Hypercholesterolemia HTN (hypertension) Diabetes Social History Household Members: Significant Other Household Members Other:: SO:Thu Alcohol intake: current Alcohol intake frequency: 3 or more drinks per day Patient Tobacco Use Status: Never used Tobacco Tobacco use type: Cigarette service: No Review of Systems Const All systems reviewed & are unremarkable except as noted in HPI and below Physical Exam Const General: cooperative, healthy appearing and no acute distress Resp Effort & Inspection: normal respiratory effort and able to speak in complete sentences Cardio Rate: regular rate Peripheral pulses: Peripheral pulses 2+ throughout GI Palpation (GI): Soft to palpation Skin Lesions: no lesions Rashes: no rashes Extrem Other: Right knee: Normal to inspection. No ecchymosis, erythema, or joint effusion. No tenderness to palpation to the medial or lateral joint lines. ROM is 10-95 degrees. Negative Kenji's. Negative anterior draw. NVI. Office Procedures Joint Injection/Drain Joint Injection/Drain Primary Site: right knee Prep: site was prepped using aseptic technique, ethochloride spray was applied and injection warnings given Injected: 40 mg of, DepoMedrol, with 8 mL of (2% plain lido) and in the joint Approach Used: anterolateral Procedure: The patient tolerated the procedure well, but had some pain with the injection and there was some relief with the local anesthesia Coding 74091 - Large joint Procedure code (CPT) selection complete Assessment & Plan Assessment & Plan (1) Osteoarthritis of right knee: Code(s): M17.11 - Unilateral primary osteoarthritis, right knee Qualifiers: Osteoarthritis type: unspecified Qualified Code(s): M17.11 - Unilateral primary osteoarthritis, right knee (2) Diabetes: Code(s): E11.9 - Type 2 diabetes mellitus without complications Plan Mr. Herbert Godinez is a 53-year-old male, who is Danish speaking, presents in the office today for a follow up of right knee pain. The patient had a cortisone injection in the right knee on 02/27/2023. He reports 3+ months of relief. The patient reports having right ankle pain that began before the right knee pain. Patient has a significant medical history of diabetes mellitus. The patient was offered a cortisone injection in the right knee with 40 mg of DepoMedrol. The patient was explained the risk, benefits, and alternatives to receiving this injection. After receiving consent for the injection, the patient had the procedure done while in office today. The patient tolerated the procedure well with no complications. Due to the patient?s history of diabetes, they were instructed to monitor his blood glucose level. The patient was informed that they could see a rise in their numbers and if the numbers became too high, they were instructed to call their PCP. The patient was also informed that they could have facial flushing as a side effect of the injection but this will pass. Follow up will be PRN, or sooner if needed. Patient Instructions: Scribed for Destini Champion PA-C by Enid Borjas medical office asst, on 09/11/2023 at 9:03 am, EST. Coding Level of Care Code Est Pt Level 3 (75333) Diagnoses Osteoarthritis of right knee, unspecified osteoarthritis type M17.11 Osteoarthritis type: unspecified Diabetes E11.9 CPT Codes Coding - 71325 Large joint: 28097 - Large joint ([id number])
== END 2023-09-11 09:23 | disposition home or self-care (01) ==
PROVIDERS: PCP Internal Medicine; Visit Provider Physician Assistant
DX: M17.11 Unilateral primary osteoarthritis, right knee (principal); E11.9 Type 2 diabetes mellitus without complications
CPT/HCPCS: 20610; 99213

== ENCOUNTER → 2023-09-11 08:59 | Outpatient (BNVA) | payer OTHER, SELFPAY | PROVIDERS: PCP Internal Medicine; Visit Provider Physician Assistant | DX: M17.11 Unilateral primary osteoarthritis, right knee (principal); E11.9 Type 2 diabetes mellitus without complications | CPT/HCPCS: 20610; 99212; J1020 ==

== ENCOUNTER 2023-10-02 09:18 | Outpatient (REF) | payer OTHER, SELFPAY ==
--- NOTE | ~2023-10-02 | XR_ITS ---
EXAMINATION: XR ANKLE, RIGHT CLINICAL INFORMATION: Pain in right ankle and joints of foot. COMPARISON: None available. TECHNIQUE: AP, lateral, and mortise views of the right ankle. FINDINGS: Vascular calcifications. Tiny plantar calcaneal spur. Soft tissue swelling at the ankle. Bone mineralization is normal. Alignment preserved. XR/XR ankle RT min 3V IMPRESSION: Tiny plantar calcaneal spur. No displaced fracture. Recommend follow-up imaging in 10-14 days if fracture is suspected.. Correlation with clinical exam recommended to determine further management. If there is concern for fracture or other underlying pathology, MRI could be obtained for further evaluation.
== END 2023-10-02 09:19 | disposition home or self-care (01) ==
LOC: HO.HOSX 09:18
PROVIDERS: Visit Provider Physician Assistant
DX: M25.571 Pain in right ankle and joints of right foot (principal); M79.671 Pain in right foot
CPT/HCPCS: 73610; 99212

== ENCOUNTER 2023-10-02 10:34 | Outpatient (AMB) | payer OTHER, SELFPAY ==
--- NOTE | 2023-10-02 10:37 | A.OFFVIS_ITS ---
Intake Vital Signs 10/02/23 10:37 Height 5 ft 8 in Weight 197 lb BMI 30.0 Intake Visit Reasons: New Prob- Right ankle pain/ swelling Intake Note: Ian is a 53 year old male who presents today with his partner for a evaluation of his right ankle pain/swelling. Patient reports no recent injuries that might of caused his pain. He states that his pain came out of no where and he is unable to walk. Pain is worse when applying weight to that side per patient. He also noticed swelling on his ankle. Allergies No Known Allergies [No Known Allergies*] Allergy (Verified 10/02/23 10:37) HPI New Prob- Right ankle pain/ swelling HPI Details 53-year-old male, who is Moroccan speakin g, presents in the office today, with his partner, for an evaluation of right ankle pain and edema. The patient reports the pain started on 09/29/2023. denies any recent injury to the right ankle that might cause him pain. He claims his pain started out of no where and he is unable to ambulate. He reports his pain is worse when applying weight to the right lower extremity. He confirms edema in the right ankle. He states when he goes to bed he is fine but when he wakes up in the morning he is unable to step on the right foot. He reports his pain over the entire foot and ankle He states it is intermittent. He reports the pain radiated up to the knee. He denies numbness or tingling. He confirms he has been taking Tylenol with no relief. He states he had this pain 2-3 months ago with more edema. He denies a history of gout. He is accompanied by a family member while in the office today. [facility] Medical History (Updated 10/02/23 @ 11:02 by Enid Borjas) ICD (implantable cardioverter-defibrillator) lead failure Biventricular ICD (implantable cardioverter-defibrillator) in place Nonischemic cardiomyopathy GERD (gastroesophageal reflux disease) Asthma NANO (obstructive sleep apnea) Obesity due to excess calories HLD (hyperlipidemia) Type 2 diabetes mellitus with chronic kidney disease Heart failure with reduced ejection fraction Implantable cardioverter-defibrillator lead failure High cholesterol Diabetes HTN (hypertension) Pacemaker Surgical History History of tonsillectomy Hx of cardiac cath Hx of transesophageal echocardiography (DAWN) for monitoring History of permanent cardiac pacemaker placement (~2008) History of circumcision Family History Father HTN (hypertension) Diabetes CVD (cardiovascular disease) Hypercholesterolemia Mother Hypercholesterolemia HTN (hypertension) Diabetes Social History Household Members: Significant Other Household Members Other:: SO:Thu Alcohol intake: current Alcohol intake frequency: 3 or more drinks per day Patient Tobacco Use Status: Never used Tobacco Tobacco use type: Cigarette service: No Review of Systems Const All systems reviewed & are unremarkable except as noted in HPI and below Physical Exam Vital Signs: BMI result Body Mass Index 30.0 Const General: cooperative, healthy appearing and no acute distress Resp Effort & Inspection: normal respiratory effort and able to speak in complete sentences Cardio Rate: regular rate Peripheral pulses: Peripheral pulses 2+ throughout GI Palpation (GI): Soft to palpation Skin Lesions: no lesions Rashes: no rashes Extrem Other: Right ankle: Extremely reactive to palpation on all anatomical landmarks including medial and lateral malleolus, anterior and dorsal aspect of the right ankle, and plantar aspect of the foot into all the toes. Able to slightly dorsiflex and plantarflex but is limited due to pain. Sensation intact. Pedal pulse intact. Assessment & Plan Assessment & Plan (1) Right ankle pain: Code(s): M25.571 - Pain in right ankle and joints of right foot Qualifiers: Chronicity: unspecified Qualified Code(s): M25.571 - Pain in right ankle and joints of right foot (2) Right foot pain: Code(s): M79.671 - Pain in right foot (3) Diabetes: Code(s): E11.9 - Type 2 diabetes mellitus without complications Plan Mr. Herbert Godinez is a 53-year-old male, who is Moroccan speaking, presents in the office today, with his partner, for an evaluation of right ankle pain and edema. The patient reports the pain started on 09/29/2023. denies any recent injury to the right ankle that might cause him pain. He claims his pain started out of no where and he is unable to ambulate. He reports his pain is worse when applying weight to the right lower extremity. He confirms edema in the right ankle. He states when he goes to bed he is fine but when he wakes up in the morning he is unable to step on the right foot. He reports his pain over the entire foot and ankle He states it is intermittent. He reports the pain radiated up to the knee. He denies numbness or tingling. He confirms he has been taking Tylenol with no relief. He states he had this pain 2-3 months ago with more edema. He denies a history of gout. He is accompanied by a family member while in the office today. I will send in a prescription for ibuprofen 800 mg TID to the pharmacy to be taken for a few weeks to help with the edema. I have placed an order for physical therapy to work on ROM to keep the patient from becoming stiff. I do recommend wearing a supportive shoe. He was given a night splint, off the shelf, to only wear at night for support. Follow up will be in 4 weeks, or sooner if needed. X-rays of the right ankle which were obtained while in the office today and were reviewed by me, Destini Champion PA-C, revealed no acute fracture or dislocation. Orders: Orders XR ankle RT min 3V Today M25.579 - Pain in unspecified ankle and joints of unspecified foot PT Evaluation and Treatment Today M25.571 - Pain in right ankle and joints of right foot Medications: New ibuprofen 800 mg PO TID PRN 90 tabs 0RF pain Patient Instructions: Scribed for Destini Champion PA-C by Enid Borjas medical lab scientist, on 10/02/2023 at 10:44 am, EST. Coding Level of Care Code Est Pt Level 3 (93578) Diagnoses Right ankle pain, unspecified chronicity M25.571 Chronicity: unspecified Right foot pain M79.671 Diabetes E11.9
== END 2023-10-02 11:06 | disposition home or self-care (01) ==
PROVIDERS: PCP Internal Medicine; Visit Provider Physician Assistant
DX: M25.571 Pain in right ankle and joints of right foot (principal); M79.671 Pain in right foot; E11.9 Type 2 diabetes mellitus without complications
CPT/HCPCS: 99213

== ENCOUNTER 2023-11-10 12:47 | Outpatient (AMB) | payer OTHER, SELFPAY ==
[2023-11-10 13:24] VITALS: BP 110/70; PULSE 78; BMI 29.8
--- NOTE | 2023-11-10 13:24 | MHC.OFFVIS ---
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 Concrete Pipe Machine Operator Name: Magda de oliveira Allergies No Known Allergies [No Known Allergies*] Allergy (Verified 10/02/23 10:37) Medication List - Last Reconciled 11/10/23 by Jose Nielson MD acetaminophen (Tylenol Extra Strength) 1,000 mg (2 x 500 mg) PO QID PRN albuterol sulfate 90 mcg/actuation 2 inhalations inhalation Q4-6H PRN albuterol sulfate 2.5 mg inhalation TID PRN aspirin 81 mg PO DAILY blood sugar diagnostic (FreeStyle Lite Strips) As directed four times a day carvedilol 12.5 mg See Protocol PO BID cholecalciferol (vitamin D3) 25 mcg PO QAM digoxin 250 mcg PO QAM dulaglutide (Trulicity) 1.5 mg subcut TU empagliflozin (Jardiance) 25 mg PO QAM fenofibrate 54 mg PO QAM flash glucose scanning reader (Central LogicStyle Garrick 2 Delong) As directed flash glucose sensor (FreeStyle Garrick 2 Sensor kit) As directed every 2 weeks furosemide 80 mg PO QAM hydroxyzine pamoate 50 mg PO BEDTIME PRN ibuprofen 800 mg PO TID PRN insulin aspart U-100 See Protocol sliding scale doses subcut QIDACHS insulin glargine 40 units subcut BEDTIME ivabradine (Corlanor) 7.5 mg PO BID lancets (TRUEplus Lancets) Four times a day metformin 500 mg PO BID mirtazapine 45 mg PO BEDTIME omega 6-hju-jib-fish oil 300 mg (120 mg- 180mg)-1,000 mg 1 cap PO TID omeprazole 40 mg PO DAILY pen needle, diabetic (Pentips) As directed sacubitril-valsartan 24-26 mg (Entresto) 1 tab See Protocol PO BID sertraline 200 mg PO DAILY spironolactone 12.5 mg See Protocol PO DAILY HPI HPI Comments History of Present Illness Details Oliver comes for follow-up. He is scheduled to undergo LV lead revision on November 28 in [place]. His CPAP machine also currently not working. History was obtained with help of quiller tender. He says when he lays down the 1st time he does get short of breath and has to sit up. Per the gradually the symptoms resolve and then he is able to lay flat. He has currently not using his CPAP. Taking all his medications. He denies any palpitations, lightheadedness, syncope, ICD discharge. He denies worsening exertional shortness of breath and says he walks 1 miles without any issues. Denies any weight gain, leg edema, abdominal distension. [facility] Medical History ICD (implantable cardioverter-defibrillator) lead failure Biventricular ICD (implantable cardioverter-defibrillator) in place Nonischemic cardiomyopathy GERD (gastroesophageal reflux disease) Asthma NANO (obstructive sleep apnea) Obesity due to excess calories HLD (hyperlipidemia) Type 2 diabetes mellitus with chronic kidney disease Heart failure with reduced ejection fraction Implantable cardioverter-defibrillator lead failure High cholesterol Diabetes HTN (hypertension) Pacemaker Surgical History History of tonsillectomy Hx of cardiac cath Hx of transesophageal echocardiography (DAWN) for monitoring History of permanent cardiac pacemaker placement (~2008) History of circumcision Family History Father HTN (hypertension) Diabetes CVD (cardiovascular disease) Hypercholesterolemia Mother Hypercholesterolemia HTN (hypertension) Diabetes Social History Household Members: Significant Other Household Members Other:: SO:Thu Alcohol intake: current Alcohol intake frequency: 3 or more drinks per day Patient Tobacco Use Status: Never used Tobacco Tobacco use type: Cigarette service: No Review of Systems Const Denies chills, Denies fatigue, Denies fever(s), Denies frequent falls, Denies weakness, Denies weight gain and Denies weight loss ENT Denies dizziness Card Denies chest pain, Denies leg edema, Denies lightheadedness, Denies palpitations, Denies dyspnea, Denies dyspnea on exertion, Denies orthopnea and Denies other (loss of consciousness) Resp Denies cough, Denies dyspnea and Denies dyspnea on exertion GI Denies hematochezia and Denies change in stool character Musc Denies abnormal gait, Denies muscle weakness, Denies numbness, Denies radiating pain into limb and Denies tingling Neuro Denies abnormal gait, Denies dizziness, Denies frequent falls, Denies numbness, Denies tingling and Denies weakness Endo Denies fatigue and Denies palpitations Physical Exam Vital Signs: Last Vital Signs Pulse 78 11/10/23 13:24 BP 110/70 11/10/23 13:24 BMI result Body Mass Index 29.8 Const General: cooperative, comfortable, no acute distress, alert and awake Nutritional Appearance: obese Orientation/consciousness: patient oriented x3 Limitations: no limitations Neck Neck: Yes trachea midline, Yes supple and Yes no JVD Chest Chest palpation & inspection: normal inspection of the chest Resp Effort & Inspection: normal respiratory effort Auscultation: clear to auscultation bilaterally Cardio Jugular venous distension: no JVD Palpation: abnormal PMI displaced PMI Rate: regular rate Rhythm: regular rhythm Heart sounds: S1 normal heart sound present and S2 normal heart sound present GI Auscultation: normal bowel sounds Skin General skin exam: no rashes or lesions noted Neuro General: patient oriented x3 and no focal motor deficits Extrem General: Yes no clubbing, cyanosis or edema Psych Appearance: grossly normal Office Procedures Cardiac Device Check Cardiac Device Check Details: Biventricular [place] [employer] ICD in place. Programmed currently in VVI due to LV lead failure. Atrial and RV lead pacing thresholds are adequate. Pacing and shock lead impedance is stable. Battery life is excellent. [id number] Cardiac Device Check, multi lead implantable defibrillator Procedure code (CPT) selection complete Assessment & Plan Assessment & Plan (1) Heart failure with reduced ejection fraction: Code(s): I50.20 - Unspecified systolic (congestive) heart failure Plan: Patient with prior severe heart failure with reduced ejection fraction with progressive and advanced heart failure syndrome. Has done extremely well with medical therapy as well as with Bi V ICD and CPAP therapy. Therefore recommend to continue to pursue the same. Continue current neurohormonal modulation with Entresto, carvedilol, Jardiance as well as spironolactone therapy. Recommend blood work every 6 months. Continue current diuretic dose. Daily weight monitoring avoidance of salt loading was discussed. Continue Corlanor therapy as well. Encouraged to continue to participate in physical activity as tolerated. I think he will benefit from revision of his LV lead as there is some reductions LV systolic function since LV lead is functioning. Continue CPAP therapy. Continue participate in weight loss program. Additional diuretics as need be was discussed. He understands management well. Continue to follow with advanced heart failure clinic at [facility]. (2) Biventricular ICD (implantable cardioverter-defibrillator) in place: Code(s): Z95.810 - Presence of automatic (implantable) cardiac defibrillator Plan: Biventricular ICD in place with LV lead failure. Currently device was reprogrammed into VVI mode. Plan for LV lead revision in near future. I think he will benefit significantly with cardiac resynchronization therapy as he has in the past with improvement in heart failure symptoms as well as LV ejection fraction. Will follow up in 2 months time, sooner p.r.n.. Thank you for allowing me to partake in his care Coding Level of Care Code Est Pt Level 4 (97386) Diagnoses Heart failure with reduced ejection fraction I50.20 Biventricular ICD (implantable cardioverter-defibrillator) in place Z95.810 CPT Codes Cardiac Device Check - Cardiac Device 6: [id number]-[id number] Cardiac Device Check, multi lead implantable defibrillator ([id number])
== END 2023-11-10 13:48 | disposition home or self-care (01) ==
PROVIDERS: PCP Internal Medicine; Visit Provider Internal Medicine Cardiovascular Disease
DX: I50.20 Unspecified systolic (congestive) heart failure (principal); Z95.810 Presence of automatic (implantable) cardiac defibrillator
CPT/HCPCS: 93284; 99214

== ENCOUNTER → 2023-11-10 12:47 | Outpatient (BNVA) | payer OTHER, SELFPAY | PROVIDERS: PCP Internal Medicine; Visit Provider Internal Medicine Cardiovascular Disease | DX: Z45.02 Encounter for adjustment and management of automatic implantable cardiac defibrillator (principal); I50.20 Unspecified systolic (congestive) heart failure | CPT/HCPCS: 99212 ==

== ENCOUNTER 2023-11-18 09:26 | Outpatient (REF) | payer OTHER, SELFPAY | END 2023-11-18 09:27 | disposition home or self-care (01) | LOC: HO.HOSX 09:26 | PROVIDERS: Visit Provider Physician Assistant | DX: Z13.89 Encounter for screening for other disorder (principal) ==

== ENCOUNTER → 2023-11-25 23:59 | Outpatient (BNV) | payer OTHER, SELFPAY ==
--- NOTE | 2023-11-26 16:25 | A.OFFVIS_ITS ---
Intake Intake Visit Reasons: Remote ICD Check- [employer] Allergies No Known Allergies [No Known Allergies*] Allergy (Verified 10/02/23 10:37) [facility] Medical History ICD (implantable cardioverter-defibrillator) lead failure Biventricular ICD (implantable cardioverter-defibrillator) in place Nonischemic cardiomyopathy GERD (gastroesophageal reflux disease) Asthma NANO (obstructive sleep apnea) Obesity due to excess calories HLD (hyperlipidemia) Type 2 diabetes mellitus with chronic kidney disease Heart failure with reduced ejection fraction Implantable cardioverter-defibrillator lead failure High cholesterol Diabetes HTN (hypertension) Pacemaker Surgical History History of tonsillectomy Hx of cardiac cath Hx of transesophageal echocardiography (DAWN) for monitoring History of permanent cardiac pacemaker placement (~2008) History of circumcision Family History Father HTN (hypertension) Diabetes CVD (cardiovascular disease) Hypercholesterolemia Mother Hypercholesterolemia HTN (hypertension) Diabetes Social History Household Members: Significant Other Household Members Other:: SO:Thu Alcohol intake: current Alcohol intake frequency: 3 or more drinks per day Patient Tobacco Use Status: Never used Tobacco Tobacco use type: Cigarette service: No Office Procedures Cardiac Device Check Cardiac Device Check Details: Remote ICD report generated 11/25/2023. ICD function is adequate [id number] Cardiac Interrogation, implant defibrillator w/interim Procedure code (CPT) selection complete Assessment & Plan Assessment & Plan (1) Biventricular ICD (implantable cardioverter-defibrillator) in place: Code(s): Z95.810 - Presence of automatic (implantable) cardiac defibrillator Plan: See above Coding Level of Care Code Procedure Only Diagnoses Biventricular ICD (implantable cardioverter-defibrillator) in place Z95.810 CPT Codes Cardiac Device Check - Cardiac Device 13: [id number] Cardiac Interrogation, implant defibrillator w/interim ([id number])
== END ==
PROVIDERS: PCP Internal Medicine; Visit Provider Internal Medicine Cardiovascular Disease
DX: I50.20 Unspecified systolic (congestive) heart failure (principal); Z95.810 Presence of automatic (implantable) cardiac defibrillator
CPT/HCPCS: 93295

== ENCOUNTER 2023-12-05 09:42 | Outpatient (AMB) | payer OTHER, SELFPAY ==
[2023-12-05 09:48] VITALS: BP 80/50; PULSE 80; O2SAT 98; BMI 30.4
--- NOTE | 2023-12-05 09:48 | HO.NEPHOV ---
HPI HPI Comments History of Present Illness Details I had the privilege of seeing Ian in follow-up his chronic kidney disease. He has cardiomyopathy. He is followed up in [place] for his heart issues. His diabetic control is better. He is now compliant with medications. His was physically present during the encounter. He denies any chest pain, shortness of breath, nausea, vomiting, diarrhea, pedal edema or dizziness. He denies taking nonsteroidal anti-inflammatory medications. His recent serum creatinine was 1.79 PFSH Medical History ICD (implantable cardioverter-defibrillator) lead failure Biventricular ICD (implantable cardioverter-defibrillator) in place Nonischemic cardiomyopathy GERD (gastroesophageal reflux disease) Asthma NANO (obstructive sleep apnea) Obesity due to excess calories HLD (hyperlipidemia) Type 2 diabetes mellitus with chronic kidney disease Heart failure with reduced ejection fraction Implantable cardioverter-defibrillator lead failure High cholesterol Diabetes HTN (hypertension) Pacemaker Surgical History History of tonsillectomy Hx of cardiac cath Hx of transesophageal echocardiography (DAWN) for monitoring History of permanent cardiac pacemaker placement (~2008) History of circumcision Family History Father HTN (hypertension) Diabetes CVD (cardiovascular disease) Hypercholesterolemia Mother Hypercholesterolemia HTN (hypertension) Diabetes Social History Household Members: Significant Other Household Members Other:: SO:Thu Alcohol intake: current Alcohol intake frequency: 3 or more drinks per day Patient Tobacco Use Status: Never used Tobacco Tobacco use type: Cigarette service: No Vital Signs 12/05/23 09:48 Height 5 ft 8 in Weight 200 lb 2 oz BMI 30.4 BP 80/50 L Blood Pressure Location Rt brachial Position Sitting Pulse 80 Pulse Source Pulse Oximeter Pulse Oximetry (%) 98 Oxygen Delivery Method Room Air Physical Exam Vital Signs: Last Vital Signs Pulse 80 12/05/23 09:48 BP 80/50 L 12/05/23 09:48 Pulse Ox 98 12/05/23 09:48 Oxygen Delivery Method Room Air 12/05/23 09:48 BMI result Body Mass Index 30.4 Const General: comfortable and no acute distress Orientation/consciousness: patient oriented x3 HEENT Head: Yes normocephalic Mouth: Normal oral and palatal mucosa present Eyes EOM: EOMs intact bilaterally Neck Neck: Yes supple Resp Auscultation: clear to auscultation bilaterally Cardio Jugular venous distension: no JVD Rate: regular rate GI Palpation (GI): Soft to palpation Auscultation: normal bowel sounds General: Yes no CVA tenderness Back/Spine/Pelvis Back: no CVA tenderness Skin General skin exam: no rashes or lesions noted Neuro General: patient oriented x3 and moves all extremities Extrem General: Yes no pedal edema Assessment & Plan Assessment & Plan (1) CKD stage G3b/A1, GFR 30-44 and albumin creatinine ratio <30 mg/g: Code(s): N18.32 - Chronic kidney disease, stage 3b (2) HTN (hypertension): Code(s): I10 - Essential (primary) hypertension Qualifiers: Hypertension type: primary hypertension Qualified Code(s): I10 - Essential (primary) hypertension Plan Ian has chronic kidney disease at baseline. His serum creatinine has settled down to 1.79. His blood sugar control is better. He is on Jardiance. He is followed up closely in [place] for his cardiomyopathy. If his cardiac function and renal function decline he will need evaluation for heart and kidney transplantation. I reiterated the need for compliance with medications and keeping his blood sugar at goal. He is tolerating Entresto. He is also on spironolactone as well. His volume status is optimal. He should avoid nonsteroidal anti-inflammatory medications. All his and his 's questions were answered. Follow-up blood work and urine studies were ordered. Follow-up appointment was given. Orders: Orders Creatinine Today N18.32 - Chronic kidney disease, stage 3b Blood Urea Nitrogen Today N18.32 - Chronic kidney disease, stage 3b Electrolytes Today N18.32 - Chronic kidney disease, stage 3b Vitamin D 25-OH Total Today N18.32 - Chronic kidney disease, stage 3b Parathyroid Hormone Intact Today N18.32 - Chronic kidney disease, stage 3b Medications: Discontinued ibuprofen Discontinued Reason: Doctor's Order 800 mg PO TID PRN 90 tabs 0RF pain Coding Level of Care Code Est Pt Level 3 (31703) Diagnoses CKD stage G3b/A1, GFR 30-44 and albumin creatinine ratio <30 mg/g N18.32 Primary hypertension I10 Hypertension type: primary hypertension Results Reviewed Nephrology Results: Sodium 143 mmol/L (135-145) 09/09/23 Potassium 4.6 mmol/L (3.3-5.1) 09/09/23 Chloride 103 mmol/L (96-108) 09/09/23 Carbon Dioxide 27 mmol/L (22-29) 09/09/23 BUN 18 mg/dL (9-16) H 09/09/23 Creatinine 1.79 mg/dL (0.5-1.4) H 09/09/23 Calcium 10.7 mg/dL (8.4-10.2) H 09/09/23
== END 2023-12-05 10:12 | disposition home or self-care (01) ==
PROVIDERS: PCP Internal Medicine; Visit Provider Internal Medicine Nephrology
DX: N18.32 Chronic kidney disease, stage 3b (principal); I10 Essential (primary) hypertension
CPT/HCPCS: 99213

== ENCOUNTER → 2023-12-05 09:42 | Outpatient (BNVA) | payer OTHER, SELFPAY | PROVIDERS: PCP Internal Medicine; Visit Provider Internal Medicine Nephrology | DX: I12.9 Hypertensive chronic kidney disease with stage 1 through stage 4 chronic kidney disease, or unspecified chronic kidney disease (principal); N18.32 Chronic kidney disease, stage 3b | CPT/HCPCS: 99212 ==

== ENCOUNTER 2023-12-12 09:21 | Outpatient (AMB) | payer OTHER, SELFPAY ==
[2023-12-12 09:23] VITALS: BMI 30.4
--- NOTE | 2023-12-12 09:23 | A.OFFVIS_ITS ---
Intake Vital Signs 12/12/23 09:23 Height 5 ft 8 in Weight 200 lb BMI 30.4 Intake Visit Reasons: inj - right knee injection Intake Note: Ian is a 53 year old male who presents today for a injection for his right knee, last injection 09/11/23. Patient reports his last injection gave him 3 months of relief. Allergies No Known Allergies [No Known Allergies*] Allergy (Verified 12/12/23 09:23) HPI inj - right knee injection HPI Details 53-year-old male who presents in the office today for a follow up of right knee pain. I last saw the patient for his right knee on 09/11/2023 when he received a cortisone injection. Patient has a significant medical history of diabetes mellitus. [facility] Medical History ICD (implantable cardioverter-defibrillator) lead failure Biventricular ICD (implantable cardioverter-defibrillator) in place Nonischemic cardiomyopathy GERD (gastroesophageal reflux disease) Asthma NANO (obstructive sleep apnea) Obesity due to excess calories HLD (hyperlipidemia) Type 2 diabetes mellitus with chronic kidney disease Heart failure with reduced ejection fraction Implantable cardioverter-defibrillator lead failure High cholesterol Diabetes HTN (hypertension) Pacemaker Surgical History History of tonsillectomy Hx of cardiac cath Hx of transesophageal echocardiography (DAWN) for monitoring History of permanent cardiac pacemaker placement (~2008) History of circumcision Family History Father HTN (hypertension) Diabetes CVD (cardiovascular disease) Hypercholesterolemia Mother Hypercholesterolemia HTN (hypertension) Diabetes Social History Household Members: Significant Other Household Members Other:: SO:Thu Alcohol intake: current Alcohol intake frequency: 3 or more drinks per day Patient Tobacco Use Status: Never used Tobacco Tobacco use type: Cigarette service: No Review of Systems Const All systems reviewed & are unremarkable except as noted in HPI and below Physical Exam Vital Signs: BMI result Body Mass Index 30.4 Const General: cooperative, healthy appearing and no acute distress Resp Effort & Inspection: normal respiratory effort and able to speak in complete sentences Cardio Rate: regular rate Peripheral pulses: Peripheral pulses 2+ throughout GI Palpation (GI): Soft to palpation Skin Lesions: no lesions Rashes: no rashes Extrem Other: Right knee: Normal to inspection. No ecchymosis, erythema, or joint effusion. No tenderness to palpation to the medial or lateral joint lines. ROM is 10-95 degrees. Negative Kenji's. Negative anterior draw. NVI. Office Procedures Joint Injection/Drain Joint Injection/Drain Primary Site: right knee Prep: site was prepped using aseptic technique, ethochloride spray was applied and injection warnings given Injected: 40 mg of, DepoMedrol and with 8 mL of (2% plain lido ) Approach Used: anterolateral Procedure: The patient tolerated the procedure well, but had some pain with the injection and there was some relief with the local anesthesia Coding 01885 - Large joint Procedure code (CPT) selection complete Assessment & Plan Assessment & Plan (1) Osteoarthritis of right knee: Code(s): M17.11 - Unilateral primary osteoarthritis, right knee Qualifiers: Osteoarthritis type: unspecified Qualified Code(s): M17.11 - Unilateral primary osteoarthritis, right knee (2) Diabetes: Code(s): E11.9 - Type 2 diabetes mellitus without complications Plan Mr. Godinez is a 53-year-old male who presents in the office today for a follow up of right knee pain. I last saw the patient for his right knee on 09/11/2023 when he received a cortisone injection. Patient has a significant medical history of diabetes mellitus. The patient was offered a cortisone injection in the right knee with 40 mg of DepoMedrol. The patient was explained the risk, benefits, and alternatives to receiving this injection. After receiving consent for the injection, the patient had the procedure done while in office today. The patient tolerated the procedure well with no complications. Due to the patient?s history of diabetes, they were instructed to monitor his blood glucose level. The patient was informed that they could see a rise in their numbers and if the numbers became too high, they were instructed to call their PCP. The patient was also informed that they could have facial flushing as a side effect of the injection but this will pass. Follow up will be PRN, or sooner if needed. Patient Instructions: Scribed by megan Field scribe, radha Champion PA-C on 12/12/2023 at 9:25 am, EST. Coding Level of Care Code Est Pt Level 4 (84995) Diagnoses Osteoarthritis of right knee, unspecified osteoarthritis type M17.11 Osteoarthritis type: unspecified Diabetes E11.9 CPT Codes Coding - 99542 Large joint: 65008 - Large joint ([id number])
== END 2023-12-12 09:40 | disposition home or self-care (01) ==
PROVIDERS: PCP Internal Medicine; Visit Provider Physician Assistant
DX: M17.11 Unilateral primary osteoarthritis, right knee (principal); E11.9 Type 2 diabetes mellitus without complications
CPT/HCPCS: 20610

== ENCOUNTER → 2023-12-12 09:21 | Outpatient (BNVA) | payer OTHER, SELFPAY | PROVIDERS: PCP Internal Medicine; Visit Provider Physician Assistant | DX: M17.11 Unilateral primary osteoarthritis, right knee (principal); E11.9 Type 2 diabetes mellitus without complications | CPT/HCPCS: 20610; J1020 ==

== ENCOUNTER 2024-01-12 12:40 | Outpatient (AMB) | payer OTHER, SELFPAY ==
[2024-01-12 12:47] VITALS: BP 110/64; PULSE 68; BMI 30.6
--- NOTE | 2024-01-12 12:47 | MHC.OFFVIS ---
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: Yes Transfer Car Operator Drier [place] [facility] [place] Specialist: Commission Specialist Present Accompanied by: Spouse Allergies No Known Allergies [No Known Allergies*] Allergy (Verified 12/12/23 09:23) Medication List - Last Reconciled 01/12/24 by Jose Nielson MD acetaminophen (Tylenol Extra Strength) 1,000 mg (2 x 500 mg) PO QID PRN albuterol sulfate 90 mcg/actuation 2 inhalations inhalation Q4-6H PRN albuterol sulfate 2.5 mg inhalation TID PRN aspirin 81 mg PO DAILY blood sugar diagnostic (FreeStyle Lite Strips) As directed four times a day carvedilol 12.5 mg See Protocol PO BID cholecalciferol (vitamin D3) 25 mcg PO QAM digoxin 250 mcg PO QAM dulaglutide (Trulicity) 1.5 mg subcut TU empagliflozin (Jardiance) 25 mg PO QAM fenofibrate 54 mg PO QAM flash glucose scanning reader (FreeStyle Garrick 2 [place]) As directed flash glucose sensor (FreeStyle Garrick 2 Sensor kit) As directed every 2 weeks furosemide 80 mg PO QAM hydroxyzine pamoate 50 mg PO BEDTIME PRN insulin aspart U-100 See Protocol sliding scale doses subcut QIDACHS insulin glargine 40 units subcut BEDTIME ivabradine (Corlanor) 7.5 mg PO BID lancets (TRUEplus Lancets) Four times a day metformin 500 mg PO BID mirtazapine 45 mg PO BEDTIME omega 6-xwh-mjg-fish oil 300 mg (120 mg- 180mg)-1,000 mg 1 cap PO TID omeprazole 40 mg PO DAILY pen needle, diabetic ([place]) As directed sacubitril-valsartan 24-26 mg (Entresto) 1 tab See Protocol PO BID sertraline 200 mg PO DAILY spironolactone 12.5 mg See Protocol PO DAILY HPI HPI Comments History of Present Illness Details Ian comes for follow-up, accompanied by his . He has been taking all his medications. History was obtained with help of chiller tender at bedside. Patient says that over the last couple months he has been getting increasingly fatigued and short of breath with exercise. Denies any orthopnea, PND, leg edema. He has been taking all his medications. He did go and see the cardiology team in [place] for his heart failure and they decided not to upgrade his device, unclear as to the reason probably because he has not had any worsening heart failure syndrome. Last echocardiogram from May last year had shown LVEF of 45-50%. He does have underlying left bundle-branch block. Also says for the last 3 months he did not have his CPAP machine. He just guarded yesterday and he has been using it ever since. Denies any palpitations, lightheadedness, syncope, ICD discharge. Denies any exertional chest pain. Takes all his medications. [facility] Medical History ICD (implantable cardioverter-defibrillator) lead failure Biventricular ICD (implantable cardioverter-defibrillator) in place Nonischemic cardiomyopathy GERD (gastroesophageal reflux disease) Asthma NANO (obstructive sleep apnea) Obesity due to excess calories HLD (hyperlipidemia) Type 2 diabetes mellitus with chronic kidney disease Heart failure with reduced ejection fraction Implantable cardioverter-defibrillator lead failure High cholesterol Diabetes HTN (hypertension) Pacemaker Surgical History History of tonsillectomy Hx of cardiac cath Hx of transesophageal echocardiography (DAWN) for monitoring History of permanent cardiac pacemaker placement (~2008) History of circumcision Family History Father HTN (hypertension) Diabetes CVD (cardiovascular disease) Hypercholesterolemia Mother Hypercholesterolemia HTN (hypertension) Diabetes Social History Household Members: Significant Other Household Members Other:: SO:Thu Alcohol intake: current Alcohol intake frequency: 3 or more drinks per day Patient Tobacco Use Status: Never used Tobacco Tobacco use type: Cigarette service: No Review of Systems Const Denies chills, Denies fatigue, Denies fever(s), Denies frequent falls, Denies weakness, Denies weight gain and Denies weight loss ENT Denies dizziness Card Denies chest pain, Denies leg edema, Denies lightheadedness, Denies palpitations, Denies dyspnea, Denies dyspnea on exertion, Denies orthopnea and Denies other (loss of consciousness) Resp Denies cough, Denies dyspnea and Denies dyspnea on exertion GI Denies hematochezia and Denies change in stool character Musc Denies abnormal gait, Denies muscle weakness, Denies numbness, Denies radiating pain into limb and Denies tingling Neuro Denies abnormal gait, Denies dizziness, Denies frequent falls, Denies numbness, Denies tingling and Denies weakness Endo Denies fatigue and Denies palpitations Physical Exam Vital Signs: Last Vital Signs Pulse 68 01/12/24 12:47 BP 110/64 01/12/24 12:47 BMI result Body Mass Index 30.6 Const General: cooperative, comfortable, no acute distress, alert and awake Nutritional Appearance: obese Orientation/consciousness: patient oriented x3 Limitations: no limitations Neck Neck: Yes trachea midline, Yes supple and Yes no JVD Chest Chest palpation & inspection: normal inspection of the chest Resp Effort & Inspection: normal respiratory effort Auscultation: clear to auscultation bilaterally Cardio Jugular venous distension: no JVD Palpation: abnormal PMI displaced PMI Rate: regular rate Rhythm: regular rhythm Heart sounds: S1 normal heart sound present and S2 normal heart sound present GI Auscultation: normal bowel sounds Skin General skin exam: no rashes or lesions noted Neuro General: patient oriented x3 and no focal motor deficits Extrem General: Yes no clubbing, cyanosis or edema Psych Appearance: grossly normal Office Procedures Cardiac Device Check Cardiac Device Check Details: Biventricular [place] [employer] ICD in place but is programmed in VVI at 40 beats per min due to LV lead failure. Atrial ventricular sensing is adequate. RV pacing thresholds excellent. Battery life is at 5 and half years. Pacing and shock lead impedance is stable. No arrhythmias detected 68581-XC Cardiac Device Check, multi lead implantable defibrillator Procedure code (CPT) selection complete EKG Details: EKG shows normal sinus rhythm with left bundle-branch block 64258-[id number], Complete Assessment & Plan Assessment & Plan (1) Heart failure with reduced ejection fraction: Code(s): I50.20 - Unspecified systolic (congestive) heart failure Plan: Prior history of heart failure with reduced ejection fraction severe LV systolic dysfunction advanced heart failure being seen by heart transplant team at [facility]. He is done remarkably well with cardiac resynchronization therapy in the past as well as neurohormonal modulation with improving himself to NYHA class 1 with improved LV systolic function as well as by echocardiogram. Last echocardiogram showed mild LV systolic dysfunction but is current worsening of symptoms with exertion is concerning for worsening LV systolic function especially that he currently does not have the benefit of cardiac resynchronization therapy due to LV lead failure. At this point time therefore discussed with the patient about repeating an echocardiogram to pursue determination of LV systolic function this further worsening his LV systolic function may need to reconsider upgrading his device to a cardiac resynchronization therapy device. This was discussed with him. He understands agrees. Also possible that his symptoms are related to him not participating in CPAP therapy. Therefore will follow-up after the echocardiogram. Continue current neurohormonal modulation with carvedilol, Entresto, spironolactone, Corlanor, Jardiance. He is also currently on digoxin therapy. Clinically appears to be euvolemic and well compensated on current diuretic dose. Continue the same. Heart failure management was discussed. Daily weight monitoring avoidance of salt loading was discussed blood pressure is currently well optimized. (2) Biventricular ICD (implantable cardioverter-defibrillator) in place: Code(s): Z95.810 - Presence of automatic (implantable) cardiac defibrillator Plan: Bi V ICD in place with LV lead failure and currently programmed in VVI mode. Patient done very well with cardiac resynchronization therapy given that he had severe nonischemic cardiomyopathy with left bundle-branch block. Has done well over the last many months with heart failure syndrome and no worsening heart failure syndrome although his symptoms of worsening fatigue and shortness of breath or concerning. Will check LV systolic function if there is further reductions LV ejection fraction will pursue upgrade and revision of his LV lead. Will follow with him in 3 months time, sooner p.r.n.. Thank you for allowing me to partake in his care Orders: Orders CA echo transthoracic complete Today I42.8 - Other cardiomyopathies Coding Level of Care Code Est Pt Level 4 (57848) Diagnoses Heart failure with reduced ejection fraction I50.20 Biventricular ICD (implantable cardioverter-defibrillator) in place Z95.810 CPT Codes Cardiac Device Check - Cardiac Device 6: 12817-FF Cardiac Device Check, multi lead implantable defibrillator ([id number]) EKG - CPT: 58999-[id number], Complete ([id number])
== END 2024-01-12 13:46 | disposition home or self-care (01) ==
PROVIDERS: PCP Internal Medicine; Visit Provider Internal Medicine Cardiovascular Disease
DX: I50.20 Unspecified systolic (congestive) heart failure (principal); Z95.810 Presence of automatic (implantable) cardiac defibrillator
CPT/HCPCS: 93010; 93284; 99214

== ENCOUNTER → 2024-01-12 12:40 | Outpatient (BNVA) | payer OTHER, SELFPAY | PROVIDERS: PCP Internal Medicine; Visit Provider Internal Medicine Cardiovascular Disease | DX: R53.83 Other fatigue (principal); R06.02 Shortness of breath; I50.20 Unspecified systolic (congestive) heart failure; I42.8 Other cardiomyopathies; Z95.810 Presence of automatic (implantable) cardiac defibrillator | CPT/HCPCS: 93005; 99212 ==

== ENCOUNTER 2024-01-27 10:40 | Outpatient (AMB) | payer OTHER, SELFPAY ==
--- NOTE | 2024-01-27 10:41 | MHC.OFFVIS ---
Intake Vital Signs 01/27/24 10:43 Height 5 ft 8 in Weight 202 lb BMI 30.7 BP 124/82 Blood Pressure Location Rt brachial Position Sitting Pulse 86 Pulse Source Pulse Oximeter Pulse Oximetry (%) 98 Oxygen Delivery Method Room Air Intake Visit Reasons: Follow up - CONF w/ chic address Intake Note: Patient presents for follow up.patient using machine. Allergies No Known Allergies [No Known Allergies*] Allergy (Verified 01/27/24 10:44) HPI HPI Comments History of Present Illness Details 53 male patient presents for follow up of NANO on CPAP. Pt reports he has received the CPAP mask and tubing this morning from [employer]. Pt reports that he was diagnosed with NANO 3-4 years ago, started CPAP. The CPAP tubing was broken but he has not received the supplies and stopped using it, about an year ago. Pt does not know the current CPAP setting. The CPAP works well. He thought his home care company was [employer] but he got the supplies from [employer]. [facility] Medical History ICD (implantable cardioverter-defibrillator) lead failure Biventricular ICD (implantable cardioverter-defibrillator) in place Nonischemic cardiomyopathy GERD (gastroesophageal reflux disease) Asthma NANO (obstructive sleep apnea) Obesity due to excess calories HLD (hyperlipidemia) Type 2 diabetes mellitus with chronic kidney disease Heart failure with reduced ejection fraction Implantable cardioverter-defibrillator lead failure High cholesterol Diabetes HTN (hypertension) Pacemaker Surgical History History of tonsillectomy Hx of cardiac cath Hx of transesophageal echocardiography (DAWN) for monitoring History of permanent cardiac pacemaker placement (~2008) History of circumcision Family History Father HTN (hypertension) Diabetes CVD (cardiovascular disease) Hypercholesterolemia Mother Hypercholesterolemia HTN (hypertension) Diabetes Social History Household Members: Significant Other Household Members Other:: SO:Thu Alcohol intake: current Alcohol intake frequency: 3 or more drinks per day Patient Tobacco Use Status: Never used Tobacco Tobacco use type: Cigarette service: No Review of Systems Const All systems reviewed & are unremarkable except as noted in HPI and below ENT Reports Normal hearing present Neuro Reports Normal hearing present Physical Exam Vital Signs: Last Vital Signs Pulse 86 01/27/24 10:43 BP 124/82 01/27/24 10:43 Pulse Ox 98 01/27/24 10:43 Oxygen Delivery Method Room Air 01/27/24 10:43 BMI result Body Mass Index 30.7 Const General: cooperative, comfortable, no acute distress, alert and awake Nutritional Appearance: obese Orientation/consciousness: patient oriented x3 Limitations: no limitations Neck Neck: Yes trachea midline, Yes supple and Yes no JVD Chest Chest palpation & inspection: normal inspection of the chest Resp Effort & Inspection: normal respiratory effort Auscultation: clear to auscultation bilaterally Cardio Jugular venous distension: no JVD Palpation: abnormal PMI displaced PMI Rate: regular rate Rhythm: regular rhythm Heart sounds: S1 normal heart sound present and S2 normal heart sound present GI Auscultation: normal bowel sounds Skin General skin exam: no rashes or lesions noted Neuro General: patient oriented x3 and no focal motor deficits Cranial nerves: Yes Bilaterally intact EOM present, Yes Normal facial strength present, Yes Midline tongue present, Yes Symmetric palate elevation present, Yes Normal hearing present, Yes Ability to bilaterally rotate head present and Yes Ability to bilaterally elevate shoulders present Cognition (Neuro): normal cognition Gait exam (Neuro): Normal gait present Motor exam (neuro): 5/5 motor strength present throughout, Pronator motor function not present and no tremor noted Extrem General: Yes no clubbing, cyanosis or edema Psych Appearance: grossly normal Mental Status: mental status grossly normal Speech and movement: Normal speech and movement present Affect: normal affect Attitude: cooperative Assessment & Plan Assessment & Plan (1) NANO (obstructive sleep apnea): Code(s): G47.33 - Obstructive sleep apnea (adult) (pediatric) Plan Advised patient to restart CPAP. Stressed compliance, use CPAP nightly and more than 4 hrs. Wt reduction advised. Coding Level of Care Code Est Pt Level 3 (26051) Diagnoses NANO (obstructive sleep apnea) G47.33
[2024-01-27 10:43] VITALS: BP 124/82; PULSE 86; O2SAT 98; BMI 30.7
== END 2024-01-27 10:57 | disposition home or self-care (01) ==
PROVIDERS: PCP Internal Medicine; Visit Provider Nurse Practitioner Family
DX: G47.33 Obstructive sleep apnea (adult) (pediatric) (principal)
CPT/HCPCS: 99213

== ENCOUNTER → 2024-01-27 10:40 | Outpatient (BNVA) | payer OTHER, SELFPAY | PROVIDERS: PCP Internal Medicine; Visit Provider Nurse Practitioner Family | DX: G47.33 Obstructive sleep apnea (adult) (pediatric) (principal) | CPT/HCPCS: 99212 ==

== ENCOUNTER → 2024-02-19 07:43 | Outpatient (REF) | payer OTHER, SELFPAY ==
--- NOTE | 2024-02-19 07:47 | CA_ITS ---
Transthoracic Echocardiogram Patient (Last, First, Middle): Ian Hernandez, Gender: Male Date of : 1970 Age: 53 Procedure Date: 02/19/2024 Procedure Type: Transthoracic Echocardiogram Location: OP Height: 172.72 cm Weight: 90.72 kg BSA: 2.04 m2 Heart Rate: bpm BP: 110 / 78 mmHg Roll Tube Setter: TO Referring MD: Jose Nielson MD Symptoms: I42.8 - Other cardiomyopathies Study Quality: Fair/Contrast Conclusions: - 1. Mildly dilated left ventricle with moderate to severe LV systolic dysfunction with LVEF of 30-35% with impaired relaxation filling pattern 2. Mild mitral regurgitation 3. Normal RV systolic pressure 4. No gross pericardial effusion Findings Procedure Information Contrast agent, definity, is being given per protocol without apparent complications. Left Ventricle Mildly increased left ventricular cavity size. There is normal left ventricular wall thickness. The left ventricular systolic function is moderate to severely decreased. The visually estimated ejection fraction is between 30-35%. There is paradoxical septal motion consistent with a left bundle branch block. Spectral Doppler is indicative of an impaired relaxation filling pattern. Elevated filling pressures. E/E prime ratio is >15, consistent with elevated filling pressures. Right Ventricle Normal right ventricular cavity size and systolic function. There is an ICD wire seen in the right ventricle. Atria The left atrium is likely dilated. There is no evidence of interatrial shunt. The right atrium is normal in size. A pacemaker wire is identified in the right atrium. Aortic Valve Normal aortic valve structure and function. There is no aortic valve stenosis. There is no aortic valve regurgitation. Mitral Valve There is mild anterior and posterior mitral leaflet thickening. There is mild mitral valve regurgitation. There is no mitral valve stenosis. Pulmonic Valve The pulmonic valve is likely normal. Tricuspid Valve Normal tricuspid valve structure. There is mild tricuspid valve regurgitation. The right ventricular systolic pressure is normal. The right ventricular systolic pressure is 27 mmHg. Normal right atrial pressure. There is no evidence of pulmonary hypertension. Great Vessels All visible segments of the aorta are normal in size. The pulmonary artery was not well visualized. Venous The inferior vena cava is normal in size and collapses greater than 50% with inspiration. Pericardium/Pleural There is no evidence of pericardial effusion. Prior Study Comparison Changes noted compared to prior study dated: 06/12/2023. LV systolic function is significantly reduced Measurements 2D Linear Measurements IVSd: 0.93 0.6-0.9/0.6-1.0 cm LVIDd: 6.08 3.9-5.3/4.2-5.9 cm LVIDd Index: 2.98 2.4-3.2/2.2-3.1 cm/m2 LVIDs: 5.24 2.0-3.6 cm LVPWd: 0.96 0.7-1.1 cm LA Diam: 4.30 2.7-3.8/3.0-4.0 cm LAIDs Index: 2.11 1.5-2.3 cm/m2 LV Mass: 293.76 67-162/88-224 g LV Mass Index: 144.00 43-95/49-115 g/m2 LVOT Diam: 2.20 3.0+(-)1.3 cm 2D Systolic Function EF 4C: 32.10 >55% EF 2C: 32.50 >55% EF BiP: 31.80 >55% Mitral Valve MV VTI: 0.33 MV Pk Austyn: 1.19 MV Mn Austyn: 0.92 MV Pk Grad: 6.00 MV Mn Grad: 4.00 MV Pk E: 0.88 MV PK A: 1.12 MV Decel Time: 178.00 E/A: 0.80 E'Lateral: 5.77 E'Medial: 6.42 E/E' Med: 13.80 E/E' Lat: 15.30 PHT: 52.00 MVA PHT: 4.23 MVA Continuity: 2.17 Decel [place]: 4.96 Aortic Valve AoV Pk Austyn: 1.58 AoV Mn Austyn: 1.10 AoV VTI: 0.30 AoV Pk Grad: 10.00 Aov Mn Grad: 5.00 ALLAN Cont.VTI: 2.46 LVOT LVOT Pk [place]yn: 1.04 LVOT Mn Austyn: 0.72 LVOT VTI: 0.19 LVOT Pk Grad: 4.00 LVOT Mn Grad: 2.00 LVOT Diam: 2.20 LVOT Area: 3.80 Diastolic Function MV Pk E: 0.88 MV Pk A: 1.12 E/A: 0.80 E'Medial: 6.42 E/E' Med: 13.80 E' Laterial: 5.77 E/E' Lat: 15.30 Right Ventricle TAPSE (mm): 22.90 TVS' Austyn: 14.10 Tricuspid Valve TV Pk Austyn: 1.15 TV Mn Austyn: 0.77 TV Pk Grad: 5.00 TV Mn Grad: 3.00 TR Pk Austyn: 2.44 TR Pk Grad: 24.00 RA Press: 3.00 RVSP: 27.00 Great Vessels Aorta Sinus of Valsalva: 3.22 2.0-3.5 cm Ao Asc: 3.40 2.1-3.4 cm Updated in Other Vendor System with Status of Final Jose Nielson MD electronically signed on 02/20/2024 3:26:17 PM with status of Final
[2024-02-19 09:30] LABS: MANUAL DIFF FLAG NO
[2024-02-19 10:08] LABS: Basophils Absolute Auto 0.1 X10*3/uL (0.0-0.2); Eosinophils Absolute Auto 0.2 X10*3/uL (0.0-0.4); Eosinophils Percent Auto 3.1 % (0-4); Hematocrit 46.5 % (42.0-52.0); Hemoglobin 15.9 g/dl (14.0-18.0); Imm Gran Abs Auto 0.07 X10*3/uL (0.00-0.03); Imm Gran Pct Auto 1.2 % (0.0-0.4); Lymphocytes Absolute Auto 1.8 X10*3/uL (1.2-4.9); Lymphocytes Percent Auto 31.4 % (20-40); Mean Corpuscular HGB Conc 34.2 g/dl (31.0-36.0); Mean Corpuscular Hemoglobin 29.6 pg (27.0-33.0); Mean Corpuscular Volume 86.6 fL (80.0-98.0); Monocytes Absolute Auto 0.5 X10*3/uL (0.1-1.2); Monocytes Percent Auto 8.2 % (2-11); Neutrophils Absolute Auto 3.2 x10*3/uL (2.0-8.3); Neutrophils Percent Auto 55.1 % (45-73); Platelet Count 220 X10*3/uL (160-400); Red Blood Count 5.37 X10*6/uL (4.60-5.80); Red Cell Distribution Width 13.1 % (11.0-16.0); White Blood Count 5.8 X10*3/uL (4.8-10.8)
[2024-02-19 11:11] LABS: Anion Gap 13 (12-20); Blood Urea Nitrogen 22 mg/dL (9-16); Calcium 9.9 mg/dL (8.4-10.2); Carbon Dioxide 29 mmol/L (22-29); Chloride 105 mmol/L (96-108); Estimated Glomerular Filt Rate 48; Potassium 4.7 mmol/L (3.3-5.1); Sodium 142 mmol/L (135-145)
[2024-02-19 11:12] LABS: Creatinine Urine 18.71 mg/dL; Total Protein Urine Random < 7 mg/dL (<12)
[2024-02-19 11:22] LABS: Vitamin D 25-OH Total 30.9 ng/mL (>30)
== END ==
LOC: HO.CARD 07:43
PROVIDERS: Absent Provider Internal Medicine Nephrology; PCP Internal Medicine; Visit Provider Internal Medicine Cardiovascular Disease
DX: N18.32 Chronic kidney disease, stage 3b (principal); I42.8 Other cardiomyopathies
CPT/HCPCS: 36415; 80051; 82306; 82310; 82565; 82570; 83970; 84156; 84520; 85025; 93306; Q9957

== ENCOUNTER → 2024-02-19 07:47 | Outpatient (BNV) | payer OTHER, SELFPAY | PROVIDERS: Absent Provider Internal Medicine Nephrology; PCP Internal Medicine; Visit Provider Internal Medicine Cardiovascular Disease | DX: I42.8 Other cardiomyopathies (principal) | CPT/HCPCS: 93306 ==

== ENCOUNTER → 2024-02-24 23:59 | Outpatient (BNV) | payer OTHER, SELFPAY ==
--- NOTE | 2024-02-25 12:56 | MHC.OFFVIS ---
Intake Visit Reasons: Remote ICd Check- [employer] Allergies No Known Allergies [No Known Allergies*] Allergy (Verified 01/27/24 10:44) [facility] Medical History ICD (implantable cardioverter-defibrillator) lead failure Biventricular ICD (implantable cardioverter-defibrillator) in place Nonischemic cardiomyopathy GERD (gastroesophageal reflux disease) Asthma NANO (obstructive sleep apnea) Obesity due to excess calories HLD (hyperlipidemia) Type 2 diabetes mellitus with chronic kidney disease Heart failure with reduced ejection fraction Implantable cardioverter-defibrillator lead failure High cholesterol Diabetes HTN (hypertension) Pacemaker Surgical History History of tonsillectomy Hx of cardiac cath Hx of transesophageal echocardiography (DAWN) for monitoring History of permanent cardiac pacemaker placement (~2008) History of circumcision Family History Father HTN (hypertension) Diabetes CVD (cardiovascular disease) Hypercholesterolemia Mother Hypercholesterolemia HTN (hypertension) Diabetes Social History Household Members: Significant Other Household Members Other:: SO:Thu Alcohol intake: current Alcohol intake frequency: 3 or more drinks per day Patient Tobacco Use Status: Never used Tobacco Tobacco use type: Cigarette service: No Office Procedures Cardiac Device Check Cardiac Device Check Details: Remote ICD report generated 02/24/2024. ICD function is adequate. Known LV lead failure [id number] Cardiac Interrogation, implant defibrillator w/interim Procedure code (CPT) selection complete Assessment & Plan Assessment & Plan (1) Biventricular ICD (implantable cardioverter-defibrillator) in place: Code(s): Z95.810 - Presence of automatic (implantable) cardiac defibrillator Category: Medical Plan: See above Coding Level of Care Code Procedure Only Diagnoses Biventricular ICD (implantable cardioverter-defibrillator) in place Z95.810 CPT Codes Cardiac Device Check - Cardiac Device 13: [id number] Cardiac Interrogation, implant defibrillator w/interim ([id number])
== END ==
PROVIDERS: PCP Internal Medicine; Visit Provider Internal Medicine Cardiovascular Disease
DX: T82.110D Breakdown (mechanical) of cardiac electrode, subsequent encounter (principal); Z95.810 Presence of automatic (implantable) cardiac defibrillator
CPT/HCPCS: 93295

== ENCOUNTER 2024-02-25 10:00 | Outpatient (RCR) | payer OTHER, SELFPAY | END 2024-04-23 08:26 | disposition home or self-care (01) | LOC: HO.PT 10:00 | PROVIDERS: PCP Internal Medicine; Visit Provider Physician Assistant | DX: M25.571 Pain in right ankle and joints of right foot (principal) | CPT/HCPCS: 97110; 97112; 97161; 97535 ==

== ENCOUNTER 2024-03-05 10:44 | Outpatient (AMB) | payer OTHER, SELFPAY ==
--- NOTE | 2024-03-05 11:12 | HO.NEPHOV ---
Vital Signs 03/05/24 11:13 Height 5 ft 8 in Weight 205 lb BMI 31.2 BP 124/70 Blood Pressure Location Rt brachial Position Sitting Pulse 80 Pulse Source Pulse Oximeter Pulse Oximetry (%) 95 Oxygen Delivery Method Room Air Intake Visit Reasons: CKD/ 3 MO F/ Confirmed Buffing Wheel Former Machine Required: Yes Buffing Wheel Former Machine Name: Buffing Wheel Former Machine services refused Accompanied by: Significant Other Allergies No Known Allergies [No Known Allergies*] Allergy (Verified 03/05/24 11:15) HPI Comments Details: I had the privilege of seeing Ian in follow-up his chronic kidney disease. He has cardiomyopathy. He is followed up in [place] for his heart issues. His diabetic control is better. He is now compliant with medications. His was physically present during the encounter. He denies any chest pain, shortness of breath, nausea, vomiting, diarrhea, pedal edema or dizziness. He denies taking nonsteroidal anti-inflammatory medications. His recent serum creatinine is at baseline REPLACED BY [facility] Medical History ICD (implantable cardioverter-defibrillator) lead failure Biventricular ICD (implantable cardioverter-defibrillator) in place Nonischemic cardiomyopathy GERD (gastroesophageal reflux disease) Asthma NANO (obstructive sleep apnea) Obesity due to excess calories HLD (hyperlipidemia) Type 2 diabetes mellitus with chronic kidney disease Heart failure with reduced ejection fraction Implantable cardioverter-defibrillator lead failure High cholesterol Diabetes HTN (hypertension) Pacemaker Surgical History History of tonsillectomy Hx of cardiac cath Hx of transesophageal echocardiography (DAWN) for monitoring History of permanent cardiac pacemaker placement (~2008) History of circumcision Family History Father HTN (hypertension) Diabetes CVD (cardiovascular disease) Hypercholesterolemia Mother Hypercholesterolemia HTN (hypertension) Diabetes Social History Household Members: Significant Other Household Members Other:: SO:Thu Alcohol intake: current Alcohol intake frequency: 3 or more drinks per day Patient Tobacco Use Status: Never used Tobacco Tobacco use type: Cigarette service: No Physical Exam Vital Signs: Last Vital Signs Pulse 80 03/05/24 11:13 BP 124/70 03/05/24 11:13 Pulse Ox 95 03/05/24 11:13 Oxygen Delivery Method Room Air 03/05/24 11:13 BMI result Body Mass Index 31.2 Const General: comfortable and no acute distress Orientation/consciousness: patient oriented x3 HEENT Head: Yes normocephalic Mouth: Normal oral and palatal mucosa present Eyes EOM: EOMs intact bilaterally Neck Neck: Yes supple Resp Auscultation: clear to auscultation bilaterally Cardio Jugular venous distension: no JVD Rate: regular rate GI Palpation (GI): Soft to palpation Auscultation: normal bowel sounds General: Yes no CVA tenderness Back/Spine/Pelvis Back: no CVA tenderness Skin General skin exam: no rashes or lesions noted Neuro General: patient oriented x3 and moves all extremities Extrem General: Yes no pedal edema Results Reviewed Nephrology Results: Hgb 15.9 g/dl (14.0-18.0) 02/19/24 WBC 5.8 X10*3/uL (4.8-10.8) 02/19/24 Plt Count 220 X10*3/uL (160-400) 02/19/24 Sodium 142 mmol/L (135-145) 02/19/24 Potassium 4.7 mmol/L (3.3-5.1) 02/19/24 Chloride 105 mmol/L (96-108) 02/19/24 Carbon Dioxide 29 mmol/L (22-29) 02/19/24 BUN 22 mg/dL (9-16) H 02/19/24 Creatinine 1.54 mg/dL (0.5-1.4) H 02/19/24 Calcium 9.9 mg/dL (8.4-10.2) 02/19/24 Urine Creatinine 18.71 mg/dL 02/19/24 Protein/Creatinin Ratio TNP 02/19/24 Assessment & Plan Assessment & Plan (1) CKD stage G3b/A1, GFR 30-44 and albumin creatinine ratio <30 mg/g: Code(s): N18.32 - Chronic kidney disease, stage 3b Category: Medical (2) HTN (hypertension): Code(s): I10 - Essential (primary) hypertension Category: Medical Qualifiers: Hypertension type: primary hypertension Qualified Code(s): I10 - Essential (primary) hypertension Plan Ian has chronic kidney disease at baseline. His serum creatinine is at baseline now. His blood sugar control is better. He is on Jardiance. He is followed up closely in [place] for his cardiomyopathy. If his cardiac function and renal function decline he will need evaluation for heart and kidney transplantation. I reiterated the need for compliance with medications and keeping his blood sugar at goal. He is tolerating Entresto. He is also on spironolactone as well. His volume status is optimal. He should avoid nonsteroidal anti-inflammatory medications. All his and his 's questions were answered. Follow-up blood work was ordered. Follow-up appointment was given. Orders: Orders Creatinine Today N18.32 - Chronic kidney disease, stage 3b Blood Urea Nitrogen Today N18.32 - Chronic kidney disease, stage 3b Electrolytes Today N18.32 - Chronic kidney disease, stage 3b Coding Level of Care Code Est Pt Level 4 (85553) Diagnoses CKD stage G3b/A1, GFR 30-44 and albumin creatinine ratio <30 mg/g N18.32 Primary hypertension I10 Hypertension type: primary hypertension
[2024-03-05 11:13] VITALS: BP 124/70; PULSE 80; O2SAT 95; BMI 31.2
== END 2024-03-05 11:37 | disposition home or self-care (01) ==
PROVIDERS: PCP Internal Medicine; Visit Provider Internal Medicine Nephrology
DX: N18.32 Chronic kidney disease, stage 3b (principal); I10 Essential (primary) hypertension
CPT/HCPCS: 99214

== ENCOUNTER → 2024-03-05 10:44 | Outpatient (BNVA) | payer OTHER, SELFPAY | PROVIDERS: PCP Internal Medicine; Visit Provider Internal Medicine Nephrology | DX: I12.9 Hypertensive chronic kidney disease with stage 1 through stage 4 chronic kidney disease, or unspecified chronic kidney disease (principal); N18.32 Chronic kidney disease, stage 3b | CPT/HCPCS: 99212 ==

== ENCOUNTER 2024-03-19 07:50 | Outpatient (REF) | payer OTHER, SELFPAY ==
--- NOTE | ~2024-03-19 | XR_ITS ---
EXAMINATION: XR ANKLE, RIGHT CLINICAL INFORMATION: Pain in unspecified ankle and joints of foot. COMPARISON: 10/02/2023 right ankle. TECHNIQUE: AP, lateral, and mortise views of the right ankle. FINDINGS: Vascular calcifications. Ankle mortise is preserved. Tiny plantar calcaneal spur. No displaced fracture is appreciated. Bone mineralization is normal. Alignment maintained. XR/XR ankle RT min 3V IMPRESSION: Tiny plantar calcaneal spur.
== END 2024-03-19 07:51 | disposition home or self-care (01) ==
LOC: HO.HOSX 07:50
PROVIDERS: Visit Provider Physician Assistant
DX: M25.571 Pain in right ankle and joints of right foot (principal); M79.671 Pain in right foot; E11.9 Type 2 diabetes mellitus without complications
CPT/HCPCS: 73610; 99212

== ENCOUNTER 2024-03-19 10:53 | Outpatient (AMB) | payer OTHER, SELFPAY ==
--- NOTE | 2024-03-19 11:04 | A.OFFVIS_ITS ---
Intake Visit Reasons: OV- rt ANKLE PAIN Intake Note: Ian is a 53 year old male who presents today with his partner for a of his right ankle pain. Patient reports he report that he is noticing still having some swelling when he is coming out of PT. He states that he noticed a lump under his foot, which he notice about a month ago. Allergies No Known Allergies [No Known Allergies*] Allergy (Verified 03/19/24 11:05) HPI HPI OV- rt ANKLE PAIN: Details: 53-year-old male, who is Mongolian speaking, presents in the office today for a follow up of right ankle pain that began on 09/29/2023. I last saw the patient for the right ankle on 10/02/2023 when he was referred to PT and given a night splint for support. While in the office today the patient reports continued edema in the right ankle after attending physical therapy. He also reports a lump on the bottom of the right foot, which appeared around a month ago, in 01/2024. States it presents on the plantar aspect between the 1st and 2nd metatarsals. Patient has been attending physical therapy for his right ankle and has currently attended 8 sessions as of 02/25/2024. Patient has a significant medical history of diabetes mellitus. [facility] Medical History ICD (implantable cardioverter-defibrillator) lead failure Biventricular ICD (implantable cardioverter-defibrillator) in place Nonischemic cardiomyopathy GERD (gastroesophageal reflux disease) Asthma NANO (obstructive sleep apnea) Obesity due to excess calories HLD (hyperlipidemia) Type 2 diabetes mellitus with chronic kidney disease Heart failure with reduced ejection fraction Implantable cardioverter-defibrillator lead failure High cholesterol Diabetes HTN (hypertension) Pacemaker Surgical History History of tonsillectomy Hx of cardiac cath Hx of transesophageal echocardiography (DAWN) for monitoring History of permanent cardiac pacemaker placement (~2008) History of circumcision Family History Father HTN (hypertension) Diabetes CVD (cardiovascular disease) Hypercholesterolemia Mother Hypercholesterolemia HTN (hypertension) Diabetes Social History Household Members: Significant Other Household Members Other:: SO:Thu Alcohol intake: current Alcohol intake frequency: 3 or more drinks per day Patient Tobacco Use Status: Never used Tobacco Tobacco use type: Cigarette service: No Review of Systems Const All systems reviewed & are unremarkable except as noted in HPI and below Physical Exam Const General: cooperative, healthy appearing and no acute distress Resp Effort & Inspection: normal respiratory effort and able to speak in complete sentences Cardio Rate: regular rate Peripheral pulses: Peripheral pulses 2+ throughout GI Palpation (GI): Soft to palpation Skin Lesions: no lesions Rashes: no rashes Extrem Other: Right ankle: Extremely reactive to palpation on all anatomical landmarks including medial and lateral malleolus, anterior and dorsal aspect of the right ankle, and plantar aspect of the foot into all the toes. Able to slightly dorsiflex and plantarflex but is limited due to pain. Sensation intact. Pedal pulse intact. Assessment & Plan Assessment & Plan (1) Right ankle pain: Code(s): M25.571 - Pain in right ankle and joints of right foot Category: Medical Qualifiers: Chronicity: unspecified Qualified Code(s): M25.571 - Pain in right ankle and joints of right foot (2) Right foot pain: Code(s): M79.671 - Pain in right foot Category: Medical (3) Diabetes: Code(s): E11.9 - Type 2 diabetes mellitus without complications Category: Medical Plan Mr. Herbert Godinez is a 53-year-old male, who is Mongolian speaking, presents in the office today for a follow up of right ankle pain that began on 09/29/2023. I last saw the patient for the right ankle on 10/02/2023 when he was referred to PT and given a night splint for support. While in the office today the patient reports continued edema in the right ankle after attending physical therapy. He also reports a lump on the bottom of the right foot, which appeared around a month ago, in 01/2024. States it presents on the plantar aspect between the 1st and 2nd metatarsals. Patient has been attending physical therapy for his right ankle and has currently attended 8 sessions as of 02/25/2024. Patient has a significant medical history of diabetes mellitus. Patient will continue to work with physical therapy. A referral will be placed to [facility] for further evaluation and treatment. Follow up will be PRN, or sooner if needed. X-rays of the right ankle which were obtained while in the office today and were reviewed by me, Destini Champion PA-C, revealed no acute fracture or dislocation. Some calcified vessels and some small osteophytes along the calcaneus, the Achilles attachment, and the plantar fascia. Orders: Orders XR ankle RT min 3V Today M25.579 - Pain in unspecified ankle and joints of unspecified foot Referrals Orthopedics Referral M25.571 - Pain in right ankle and joints of right foot, M79.671 - Pain in right foot Patient Instructions: Scribed by Enid Borjas medical insurance claims processor, for Destini Champion PA-C on 03/19/2024 at 11:03 am, EST. Coding Level of Care Code Est Pt Level 3 (95224) Diagnoses Right ankle pain, unspecified chronicity M25.571 Chronicity: unspecified Right foot pain M79.671 Diabetes E11.9
== END 2024-03-19 11:17 | disposition home or self-care (01) ==
PROVIDERS: PCP Internal Medicine; Visit Provider Physician Assistant
DX: M25.571 Pain in right ankle and joints of right foot (principal); M79.671 Pain in right foot; E11.9 Type 2 diabetes mellitus without complications
CPT/HCPCS: 99213

== ENCOUNTER 2024-04-07 09:02 | Outpatient (REF) | payer OTHER, SELFPAY ==
[2024-04-07 09:54] LABS: Anion Gap 19 (12-20); Blood Urea Nitrogen 29 mg/dL (9-16); Carbon Dioxide 22 mmol/L (22-29); Chloride 99 mmol/L (96-108); Estimated Glomerular Filt Rate 45; Potassium 3.8 mmol/L (3.3-5.1); Sodium 136 mmol/L (135-145)
[2024-04-07 10:01] LABS: Parathyroid Hormone Intact 83.6 pg/mL (8.7-77.1)
== END 2024-04-07 09:03 | disposition home or self-care (01) ==
LOC: HO.LAB 09:02
PROVIDERS: PCP Internal Medicine; Visit Provider Internal Medicine Nephrology
DX: N18.32 Chronic kidney disease, stage 3b (principal)
CPT/HCPCS: 36415; 80051; 82565; 83970; 84520

== ENCOUNTER 2024-04-12 12:33 | Outpatient (AMB) | payer OTHER, SELFPAY ==
[2024-04-12 13:00] VITALS: BP 120/80; PULSE 77; BMI 30.4
--- NOTE | 2024-04-12 13:00 | MHC.OFFVIS ---
Vital Signs 04/12/24 13:00 Height 5 ft 8 in Weight 200 lb BMI 30.4 BP 120/80 Blood Pressure Location Lt brachial Position Sitting Pulse 77 Intake Visit Reasons: 3 mth w/ device ck Intake Note: 3 month follow-up with [facility] have surgery 04/26 feelng good Needle Leader Required: Yes Needle Leader Name: Jose A de oliveira Corporate Travel Consultant: Corporate Travel Consultant Present Accompanied by: Spouse Allergies No Known Allergies [No Known Allergies*] Allergy (Verified 03/19/24 11:05) Medication List - Last Reconciled 04/12/24 by Jose Nielson MD acetaminophen (Tylenol Extra Strength) 1,000 mg (2 x 500 mg) PO QID PRN albuterol sulfate 90 mcg/actuation 2 inhalations inhalation Q4-6H PRN albuterol sulfate 2.5 mg inhalation TID PRN aspirin 81 mg PO DAILY blood sugar diagnostic (FreeStyle Lite Strips) As directed four times a day carvedilol 12.5 mg See Protocol PO BID cholecalciferol (vitamin D3) 25 mcg PO QAM digoxin 250 mcg PO QAM dulaglutide (Trulicity) 1.5 mg subcut TU empagliflozin (Jardiance) 25 mg PO QAM fenofibrate 54 mg PO QAM flash glucose scanning reader (FreeStyle Garrick 2 [place]) As directed flash glucose sensor (FreeStyle Garrick 2 Sensor kit) As directed every 2 weeks furosemide 80 mg PO QAM hydroxyzine pamoate 50 mg PO BEDTIME PRN insulin aspart U-100 See Protocol sliding scale doses subcut QIDACHS insulin glargine 40 units subcut BEDTIME ivabradine (Corlanor) 7.5 mg PO BID lancets (TRUEplus Lancets) Four times a day metformin 500 mg PO BID mirtazapine 45 mg PO BEDTIME omega 2-nbe-ibu-fish oil 300 mg (120 mg- 180mg)-1,000 mg 1 cap PO TID omeprazole 40 mg PO DAILY pen needle, diabetic (Pentips) As directed sacubitril-valsartan 24-26 mg (Entresto) 1 tab See Protocol PO BID sertraline 200 mg PO DAILY spironolactone 12.5 mg See Protocol PO DAILY HPI Comments Details: Ian comes for follow-up. He has had no hospitalization related to heart failure. Denies any worsening symptoms. Stable currently. Is scheduled for ICD redo especially LV lead, was plan for today was canceled for unclear reasons. He has scheduled in the coming 2 weeks. He is taking all his medications. Denies any orthopnea, PND, leg edema. Denies any prolonged palpitations, irregular heartbeat. No lightheadedness, syncope, ICD discharge. [facility] Medical History ICD (implantable cardioverter-defibrillator) lead failure Biventricular ICD (implantable cardioverter-defibrillator) in place Nonischemic cardiomyopathy GERD (gastroesophageal reflux disease) Asthma NANO (obstructive sleep apnea) Obesity due to excess calories HLD (hyperlipidemia) Type 2 diabetes mellitus with chronic kidney disease Heart failure with reduced ejection fraction Implantable cardioverter-defibrillator lead failure High cholesterol Diabetes HTN (hypertension) Pacemaker Surgical History History of tonsillectomy Hx of cardiac cath Hx of transesophageal echocardiography (DAWN) for monitoring History of permanent cardiac pacemaker placement (~2008) History of circumcision Family History Father HTN (hypertension) Diabetes CVD (cardiovascular disease) Hypercholesterolemia Mother Hypercholesterolemia HTN (hypertension) Diabetes Social History Household Members: Significant Other Household Members Other:: SO:Thu Alcohol intake: current Alcohol intake frequency: 3 or more drinks per day Patient Tobacco Use Status: Never used Tobacco Tobacco use type: Cigarette service: No Review of Systems Const Denies chills, Denies fatigue, Denies fever(s), Denies frequent falls, Denies weakness, Denies weight gain and Denies weight loss ENT Denies dizziness Card Denies chest pain, Denies leg edema, Denies lightheadedness, Denies palpitations, Denies dyspnea, Denies dyspnea on exertion, Denies orthopnea and Denies other (loss of consciousness) Resp Denies cough, Denies dyspnea and Denies dyspnea on exertion GI Denies hematochezia and Denies change in stool character Musc Denies abnormal gait, Denies muscle weakness, Denies numbness, Denies radiating pain into limb and Denies tingling Neuro Denies abnormal gait, Denies dizziness, Denies frequent falls, Denies numbness, Denies tingling and Denies weakness Endo Denies fatigue and Denies palpitations Physical Exam Vital Signs: Last Vital Signs Pulse 77 04/12/24 13:00 BP 120/80 04/12/24 13:00 BMI result Body Mass Index 30.4 Const General: cooperative, comfortable, no acute distress, alert and awake Nutritional Appearance: obese Orientation/consciousness: patient oriented x3 Limitations: no limitations Neck Neck: Yes trachea midline, Yes supple and Yes no JVD Chest Chest palpation & inspection: normal inspection of the chest Resp Effort & Inspection: normal respiratory effort Auscultation: clear to auscultation bilaterally Cardio Jugular venous distension: no JVD Palpation: abnormal PMI displaced PMI Rate: regular rate Rhythm: regular rhythm Heart sounds: S1 normal heart sound present and S2 normal heart sound present GI Auscultation: normal bowel sounds Skin General skin exam: no rashes or lesions noted Neuro General: patient oriented x3 and no focal motor deficits Extrem General: Yes no clubbing, cyanosis or edema Psych Appearance: grossly normal Office Procedures Cardiac Device Check Cardiac Device Check Details: Biventricular [employer] ICD in place. Programmed in VVI at 40 beats per minute. Battery life is 5 years. LV lead failure. Couple of episodes of nonsustained ventricular tachycardia noted. Episode of SVT noted as well. RA and RV pacing thresholds adequate. Pacing lead impedance stable. Shock lead impedance is adequate. Atrial ventricular sensing is adequate. [id number] Cardiac Device Check, multi lead implantable defibrillator Procedure code (CPT) selection complete Assessment & Plan Assessment & Plan (1) Heart failure with reduced ejection fraction: Code(s): I50.20 - Unspecified systolic (congestive) heart failure Category: Medical Plan: Heart failure with reduced ejection fraction with marked LV systolic dysfunction in the past at done very well with resynchronization therapy till the LV lead failure. Since then his LV systolic function has reduced and he was having increased symptoms. Currently on guideline based medical therapy. Requires given his age re-attempt at cardiac resynchronization therapy. Has seen electrophysiology and plan for undergoing the procedure in the near future. Potentially increase risk given that he has multiple leads was discussed with him. Continue current neurohormonal modulation. Will require digoxin assay. Signs and symptoms of heart failure discussed advised to call me with worsening heart failure symptoms. Will follow up in the clinic in 2 months time. Thank you for allowing me to partake in his care Coding Level of Care Code Est Pt Level 4 (04355) Diagnoses Heart failure with reduced ejection fraction I50.20 CPT Codes Cardiac Device Check - Cardiac Device 6: [id number] Cardiac Device Check, multi lead implantable defibrillator ([id number])
== END 2024-04-12 13:32 | disposition home or self-care (01) ==
PROVIDERS: PCP Internal Medicine; Visit Provider Internal Medicine Cardiovascular Disease
DX: I50.20 Unspecified systolic (congestive) heart failure (principal); Z95.810 Presence of automatic (implantable) cardiac defibrillator
CPT/HCPCS: 93284; 99214

== ENCOUNTER → 2024-04-12 12:33 | Outpatient (BNVA) | payer OTHER, SELFPAY | PROVIDERS: PCP Internal Medicine; Visit Provider Internal Medicine Cardiovascular Disease | DX: Z45.02 Encounter for adjustment and management of automatic implantable cardiac defibrillator (principal); I50.20 Unspecified systolic (congestive) heart failure | CPT/HCPCS: 99212 ==

== ENCOUNTER 2024-05-03 10:21 | Outpatient (AMB) | payer OTHER, SELFPAY ==
--- NOTE | 2024-05-03 10:24 | MHC.OFFVIS ---
Intake Visit Reasons: Inj- Right knee injection, last inj 12/12/23 AH Intake Note: Ian is a 53 year old male who presents to the office today for right knee injection. Last injection was 12/12/23. Pt states the prior injection gave him a lot of relief. Allergies No Known Allergies [No Known Allergies*] Allergy (Verified 05/03/24 10:26) HPI HPI Inj- Right knee injection, last inj 12/12/23 AH: Details: 53-year-old male who is Czech speaking, presents in the office today for a follow-up of right knee pain. I last saw the patient in the office on 12/12/2023, when he received a cortisone injection in the right knee.? While in the office today, the patient reports that he has noticed significant relief from his previous cortisone injection in the right knee.? Patient has a significant medical history of diabetes mellitus.? [facility] Medical History ICD (implantable cardioverter-defibrillator) lead failure Biventricular ICD (implantable cardioverter-defibrillator) in place Nonischemic cardiomyopathy GERD (gastroesophageal reflux disease) Asthma NANO (obstructive sleep apnea) Obesity due to excess calories HLD (hyperlipidemia) Type 2 diabetes mellitus with chronic kidney disease Heart failure with reduced ejection fraction Implantable cardioverter-defibrillator lead failure High cholesterol Diabetes HTN (hypertension) Pacemaker Surgical History History of tonsillectomy Hx of cardiac cath Hx of transesophageal echocardiography (DAWN) for monitoring History of permanent cardiac pacemaker placement (~2008) History of circumcision Family History Father HTN (hypertension) Diabetes CVD (cardiovascular disease) Hypercholesterolemia Mother Hypercholesterolemia HTN (hypertension) Diabetes Social History Household Members: Significant Other Household Members Other:: SO:Thu Alcohol intake: current Alcohol intake frequency: 3 or more drinks per day Patient Tobacco Use Status: Never used Tobacco Tobacco use type: Cigarette service: No Review of Systems Const All systems reviewed & are unremarkable except as noted in HPI and below Physical Exam Const General: cooperative, healthy appearing and no acute distress Resp Effort & Inspection: normal respiratory effort and able to speak in complete sentences Cardio Rate: regular rate Peripheral pulses: Peripheral pulses 2+ throughout GI Palpation (GI): Soft to palpation Skin Lesions: no lesions Rashes: no rashes Extrem Other: Right knee: Normal to inspection. No ecchymosis, erythema, or joint effusion. No tenderness to palpation to the medial or lateral joint lines. ROM is 10-95 degrees. Negative Kenji's. Negative anterior draw. NVI. Office Procedures Joint Injection/Drain Joint Injection/Drain Primary Site: right knee Prep: site was prepped using aseptic technique, ethochloride spray was applied and injection warnings given Injected: 40 mg of, DepoMedrol and with 8 mL of (2% plain lido ) Approach Used: anterolateral Procedure: The patient tolerated the procedure well, but had some pain with the injection and there was some relief with the local anesthesia Coding 75515 - Large joint Procedure code (CPT) selection complete Assessment & Plan Assessment & Plan (1) Osteoarthritis of right knee: Code(s): M17.11 - Unilateral primary osteoarthritis, right knee Category: Medical Qualifiers: Osteoarthritis type: unspecified Qualified Code(s): M17.11 - Unilateral primary osteoarthritis, right knee (2) Diabetes: Code(s): E11.9 - Type 2 diabetes mellitus without complications Category: Medical Plan Mr. Godinez is a 53-year-old male who is Czech speaking, presents in the office today for a follow up of right knee pain. I last saw the patient in the office on 12/12/2023, when he received a cortisone injection into the right knee.? While in the office today, the patient reports that he has noticed significant relief from his previous cortisone injection in the right knee.? Patient has a significant medical history of diabetes mellitus.? ? The patient was offered a cortisone injection in the right knee with 40 mg of DepoMedrol. The patient was explained the risk, benefits, and alternatives to receiving this injection. After receiving consent for the injection, the patient had the procedure done while in the office today. The patient tolerated the procedure well with no complications.? ? Due to the patient?s history of diabetes, they were instructed to monitor his blood glucose level. The patient was informed that they could see a rise in their numbers and if the numbers became too high, they were instructed to call their PCP. The patient was also informed that they could have facial flushing as a side effect of the injection but this will pass. Follow-up will be PRN, or sooner if needed.? Patient Instructions: Scribed by Jp Sanchez medical collections specialist, for Destini Champion PA-C on 05/03/2024 at?10:45 AM EST.? Coding Level of Care Code Est Pt Level 4 (24477) Diagnoses Osteoarthritis of right knee, unspecified osteoarthritis type M17.11 Osteoarthritis type: unspecified Diabetes E11.9 CPT Codes Coding - 59524 Large joint: 11080 - Large joint ([id number])
== END 2024-05-03 10:39 | disposition home or self-care (01) ==
PROVIDERS: PCP Internal Medicine; Visit Provider Physician Assistant
DX: M17.11 Unilateral primary osteoarthritis, right knee (principal); E11.9 Type 2 diabetes mellitus without complications
CPT/HCPCS: 20610; 99213

== ENCOUNTER → 2024-05-03 10:21 | Outpatient (BNVA) | payer OTHER, SELFPAY | PROVIDERS: PCP Internal Medicine; Visit Provider Physician Assistant | DX: M17.11 Unilateral primary osteoarthritis, right knee (principal); E11.9 Type 2 diabetes mellitus without complications | CPT/HCPCS: 20610; 99212; J1010 ==

== ENCOUNTER 2024-05-04 13:10 | Outpatient (AMB) | payer OTHER, SELFPAY ==
--- NOTE | 2024-05-04 13:16 | A.OFFVIS_ITS ---
Vital Signs 05/04/24 13:17 Height 5 ft 8 in Weight 197 lb BMI 30.0 BMI Reason not done Patient refused/unable BP 118/60 Blood Pressure Location Lt brachial Position Sitting Pulse 67 Pulse Source Pulse Oximeter Intake Visit Reasons: wound check only Hand Shoes Sewer Required: Yes Hand Shoes Sewer Name: JOLENE [id number] / [id number] Accompanied by: Allergies No Known Allergies [No Known Allergies*] Allergy (Verified 05/04/24 13:40) Medication List - Last Reconciled 05/04/24 by Siena Valentino NP acetaminophen (Tylenol Extra Strength) 1,000 mg (2 x 500 mg) PO QID PRN albuterol sulfate 90 mcg/actuation 2 inhalations inhalation Q4-6H PRN albuterol sulfate 2.5 mg inhalation TID PRN aspirin 81 mg PO DAILY blood sugar diagnostic (FreeStyle Lite Strips) As directed four times a day carvedilol 12.5 mg See Protocol PO BID cholecalciferol (vitamin D3) 25 mcg PO QAM digoxin 250 mcg PO QAM dulaglutide (Trulicity) 1.5 mg subcut TU empagliflozin (Jardiance) 25 mg PO QAM fenofibrate 54 mg PO QAM flash glucose scanning reader (FreeStyle Garrick 2 [place]) As directed flash glucose sensor (FreeStyle Garrick 2 Sensor kit) As directed every 2 weeks furosemide 80 mg PO QAM hydroxyzine pamoate 50 mg PO BEDTIME PRN insulin aspart U-100 See Protocol sliding scale doses subcut QIDACHS insulin glargine 40 units subcut BEDTIME ivabradine (Corlanor) 7.5 mg PO BID lancets (TRUEplus Lancets) Four times a day metformin 500 mg PO BID mirtazapine 45 mg PO BEDTIME omega 4-qkl-exp-fish oil 300 mg (120 mg- 180mg)-1,000 mg 1 cap PO TID omeprazole 40 mg PO DAILY pen needle, diabetic (P[place]ips) As directed sacubitril-valsartan 24-26 mg (Entresto) 1 tab See Protocol PO BID sertraline 200 mg PO DAILY spironolactone 12.5 mg See Protocol PO DAILY HPI Comments Details: 53-year-old male presents for a wound check after ICD generator change. He reports he has been doing well with no fever, chills, pain, drainage, or odor. He had the ICD changed on 04/[address] Cota. Site is dressed. [facility] Medical History ICD (implantable cardioverter-defibrillator) lead failure Biventricular ICD (implantable cardioverter-defibrillator) in place Nonischemic cardiomyopathy GERD (gastroesophageal reflux disease) Asthma NANO (obstructive sleep apnea) Obesity due to excess calories HLD (hyperlipidemia) Type 2 diabetes mellitus with chronic kidney disease Heart failure with reduced ejection fraction Implantable cardioverter-defibrillator lead failure High cholesterol Diabetes HTN (hypertension) Pacemaker Surgical History (Updated 05/04/24 @ 13:44 by Siena Valentino NP) S/P ICD (internal cardiac defibrillator) procedure History of tonsillectomy Hx of cardiac cath Hx of transesophageal echocardiography (DAWN) for monitoring History of permanent cardiac pacemaker placement (~2008) History of circumcision Family History Father HTN (hypertension) Diabetes CVD (cardiovascular disease) Hypercholesterolemia Mother Hypercholesterolemia HTN (hypertension) Diabetes Social History Household Members: Significant Other Household Members Other:: SO:Thu Alcohol intake: current Alcohol intake frequency: 3 or more drinks per day Patient Tobacco Use Status: Never used Tobacco Tobacco use type: Cigarette service: No Review of Systems Const Denies weakness ENT Denies dizziness Card Denies chest pain, Denies chest pain with activity, Denies syncope, Denies rapid heart rate, Denies pedal edema, Denies edema, Denies leg edema, Denies lightheadedness, Denies palpitations, Denies dyspnea, Denies dyspnea on exertion and Denies orthopnea Resp Denies cough, Denies dyspnea and Denies dyspnea on exertion GI Denies hematochezia and Denies change in stool character Musc Denies abnormal gait, Denies muscle cramps, Denies muscle weakness, Denies numbness, Denies radiating pain into limb and Denies tingling Neuro Denies abnormal gait, Denies dizziness, Denies syncope, Denies numbness, Denies tingling and Denies weakness Endo Denies palpitations Physical Exam Vital Signs: Last Vital Signs Pulse 67 05/04/24 13:17 BP 118/60 05/04/24 13:17 BMI result Body Mass Index 30.0 Const General: healthy appearing and no acute distress Orientation/consciousness: patient oriented x3 HEENT Head: Yes normal to inspection Eyes General: appearance normal, both eyes and all related structures Neck Neck: Yes normal visual inspection Chest Other: ICD dressed with tegaderm and gauze. Removed. Site well approximated with skin glue. No erythema, drainage, odor, noted. Mild swelling. No tenderness with light palpitation. Chest palpation & inspection: normal inspection of the chest Resp Effort & Inspection: normal respiratory effort Auscultation: clear to auscultation bilaterally Cardio Jugular venous distension: no JVD Palpation: normal PMI Rate: regular rate Rhythm: regular rhythm Heart sounds: S1 normal heart sound present, S2 normal heart sound present, no click, no gallops, no murmurs and no rubs GI Inspection: Yes normal to inspection Palpation (GI): Soft to palpation Skin General skin exam: no rashes or lesions noted Neuro General: patient oriented x3 Extrem General: Yes normal to inspection Psych Appearance: grossly normal Assessment & Plan Assessment & Plan (1) S/P ICD (internal cardiac defibrillator) procedure: Comment: [employer]. Implant date 04/26/[address] Cota. Device [employer] TECHNICAL SYSTEM ANALYST-D [id number] Code(s): Z95.810 - Presence of automatic (implantable) cardiac defibrillator Category: Surgical Plan ICD dressed with tegaderm and gauze. Removed. Site well approximated with skin glue. No erythema, drainage, odor, noted. Mild swelling. No tenderness with light palpitation. Will follow remotely. Signs of infection reviewed. In office interrogation coming up. Appointment already made. Coding Level of Care Code Est Pt Level 3 (60935) Diagnoses S/P ICD (internal cardiac defibrillator) procedure Z95.810
[2024-05-04 13:17] VITALS: BP 118/60; PULSE 67
== END 2024-05-04 13:40 | disposition home or self-care (01) ==
PROVIDERS: PCP Internal Medicine; Visit Provider Nurse Practitioner
DX: Z95.810 Presence of automatic (implantable) cardiac defibrillator (principal)
CPT/HCPCS: 99213

== ENCOUNTER → 2024-05-04 13:10 | Outpatient (BNVA) | payer OTHER, SELFPAY | PROVIDERS: PCP Internal Medicine; Visit Provider Nurse Practitioner | DX: Z48.89 Encounter for other specified surgical aftercare (principal) | CPT/HCPCS: 99212 ==

== ENCOUNTER → 2024-05-25 23:59 | Outpatient (BNV) | payer OTHER, SELFPAY ==
--- NOTE | 2024-05-26 14:14 | MHC.OFFVIS ---
Intake Visit Reasons: Remote ICD check- [employer] Allergies No Known Allergies [No Known Allergies*] Allergy (Verified 05/04/24 13:40) [facility] Medical History ICD (implantable cardioverter-defibrillator) lead failure Biventricular ICD (implantable cardioverter-defibrillator) in place Nonischemic cardiomyopathy GERD (gastroesophageal reflux disease) Asthma NANO (obstructive sleep apnea) Obesity due to excess calories HLD (hyperlipidemia) Type 2 diabetes mellitus with chronic kidney disease Heart failure with reduced ejection fraction Implantable cardioverter-defibrillator lead failure High cholesterol Diabetes HTN (hypertension) Pacemaker Surgical History (Updated 05/04/24 @ 13:44 by Siena Valentino NP) S/P ICD (internal cardiac defibrillator) procedure History of tonsillectomy Hx of cardiac cath Hx of transesophageal echocardiography (DAWN) for monitoring History of permanent cardiac pacemaker placement (~2008) History of circumcision Family History Father HTN (hypertension) Diabetes CVD (cardiovascular disease) Hypercholesterolemia Mother Hypercholesterolemia HTN (hypertension) Diabetes Social History Household Members: Significant Other Household Members Other:: SO:Thu Alcohol intake: current Alcohol intake frequency: 3 or more drinks per day Patient Tobacco Use Status: Never used Tobacco Tobacco use type: Cigarette service: No Office Procedures Cardiac Device Check Cardiac Device Check Details: Remote ICD report generated 05/25/2024. Bi V pacing 97% of the time. ICD function is adequate 38404-Oufeac Cardiac Interrogation, implant defibrillator w/interim Procedure code (CPT) selection complete Assessment & Plan Assessment & Plan (1) S/P ICD (internal cardiac defibrillator) procedure: Comment: [employer]. Implant date 04/26/[address] Cota. Device [employer] MANAGER PULMONARY-D [id number] Code(s): Z95.810 - Presence of automatic (implantable) cardiac defibrillator Category: Surgical Plan: See above Coding Level of Care Code Procedure Only Diagnoses S/P ICD (internal cardiac defibrillator) procedure Z95.810 CPT Codes Cardiac Device Check - Cardiac Device 13: 06815-[place] Cardiac Interrogation, implant defibrillator w/interim ([id number])
== END ==
PROVIDERS: PCP Internal Medicine; Visit Provider Internal Medicine Cardiovascular Disease
DX: Z45.02 Encounter for adjustment and management of automatic implantable cardiac defibrillator (principal)
CPT/HCPCS: 93295

== ENCOUNTER 2024-05-27 08:42 | Outpatient (REF) | payer OTHER, SELFPAY ==
[2024-05-27 10:05] LABS: Anion Gap 14 (12-20); Blood Urea Nitrogen 28 mg/dL (9-16); Calcium 10.3 mg/dL (8.4-10.2); Carbon Dioxide 27 mmol/L (22-29); Chloride 106 mmol/L (96-108); Estimated Glomerular Filt Rate 42; Potassium 4.7 mmol/L (3.3-5.1); Sodium 142 mmol/L (135-145)
== END 2024-05-27 08:43 | disposition home or self-care (01) ==
LOC: HO.LAB 08:42
PROVIDERS: PCP Internal Medicine; Visit Provider Internal Medicine Nephrology
DX: N18.32 Chronic kidney disease, stage 3b (principal)
CPT/HCPCS: 36415; 80051; 82310; 82565; 84520

== ENCOUNTER 2024-06-02 12:04 | Outpatient (AMB) | payer OTHER, SELFPAY ==
--- NOTE | 2024-06-02 12:07 | HO.NEPHOV_ITS ---
Vital Signs 06/02/24 12:09 Height 5 ft 8 in Weight 203 lb BMI 30.9 BP 90/60 Blood Pressure Location Lt brachial Position Sitting Pulse 65 Pulse Source Pulse Oximeter Pulse Oximetry (%) 97 Oxygen Delivery Method Room Air Intake Visit Reasons: CKD/ 3 MO FU/ Conf Auto Research Engineer Required: Yes Auto Research Engineer Services: Auto Research Engineer Present Auto Research Engineer Name: Gabe [id number] Accompanied by: Significant Other Allergies No Known Allergies [No Known Allergies*] Allergy (Verified 06/02/24 12:12) HPI Comments Details: I had the privilege of seeing Ian in follow-up his chronic kidney disease. He has cardiomyopathy. He is followed up in [place] for his heart issues. His diabetic control is better. He is now compliant with medications. His was physically present during the encounter. He denies any chest pain, shortness of breath, nausea, vomiting, diarrhea, pedal edema or dizziness. He denies taking nonsteroidal anti-inflammatory medications. His recent serum creatinine is close to baseline [facility] Medical History ICD (implantable cardioverter-defibrillator) lead failure Biventricular ICD (implantable cardioverter-defibrillator) in place Nonischemic cardiomyopathy GERD (gastroesophageal reflux disease) Asthma NANO (obstructive sleep apnea) Obesity due to excess calories HLD (hyperlipidemia) Type 2 diabetes mellitus with chronic kidney disease Heart failure with reduced ejection fraction Implantable cardioverter-defibrillator lead failure High cholesterol Diabetes HTN (hypertension) Pacemaker Surgical History (Updated 05/04/24 @ 13:44 by Siena Valentino NP) S/P ICD (internal cardiac defibrillator) procedure History of tonsillectomy Hx of cardiac cath Hx of transesophageal echocardiography (DAWN) for monitoring History of permanent cardiac pacemaker placement (~2008) History of circumcision Family History Father HTN (hypertension) Diabetes CVD (cardiovascular disease) Hypercholesterolemia Mother Hypercholesterolemia HTN (hypertension) Diabetes Social History Household Members: Significant Other Household Members Other:: SO:Thu Alcohol intake: current Alcohol intake frequency: 3 or more drinks per day Patient Tobacco Use Status: Never used Tobacco Tobacco use type: Cigarette service: No Review of Systems Const All systems reviewed & are unremarkable except as noted in HPI and below Physical Exam Vital Signs: Last Vital Signs Pulse 65 06/02/24 12:09 BP 90/60 06/02/24 12:09 Pulse Ox 97 06/02/24 12:09 Oxygen Delivery Method Room Air 06/02/24 12:09 BMI result Body Mass Index 30.9 Const General: comfortable and no acute distress Orientation/consciousness: patient oriented x3 HEENT Head: Yes normocephalic Mouth: Normal oral and palatal mucosa present Eyes EOM: EOMs intact bilaterally Neck Neck: Yes supple Resp Auscultation: clear to auscultation bilaterally Cardio Jugular venous distension: no JVD Rate: regular rate GI Palpation (GI): Soft to palpation Auscultation: normal bowel sounds General: Yes no CVA tenderness Back/Spine/Pelvis Back: no CVA tenderness Skin General skin exam: no rashes or lesions noted Neuro General: patient oriented x3 and moves all extremities Extrem General: Yes no pedal edema Results Reviewed Nephrology Results: Sodium 142 mmol/L (135-145) 05/27/24 Potassium 4.7 mmol/L (3.3-5.1) 05/27/24 Chloride 106 mmol/L (96-108) 05/27/24 Carbon Dioxide 27 mmol/L (22-29) 05/27/24 BUN 28 mg/dL (9-16) H 05/27/24 Creatinine 1.73 mg/dL (0.5-1.4) H 05/27/24 Calcium 10.3 mg/dL (8.4-10.2) H 05/27/24 PTH Intact 83.6 pg/mL (8.7-77.1) H 04/07/24 Assessment & Plan Assessment & Plan (1) CKD stage G3b/A1, GFR 30-44 and albumin creatinine ratio <30 mg/g: Code(s): N18.32 - Chronic kidney disease, stage 3b Category: Medical (2) HTN (hypertension): Code(s): I10 - Essential (primary) hypertension Category: Medical Qualifiers: Hypertension type: primary hypertension Qualified Code(s): I10 - Essential (primary) hypertension Plan Ian has chronic kidney disease & the serum creatinine is close to baseline now. His blood sugar control is better. He is on Jardiance as well as Entresto. He is followed up closely in [place] for his cardiomyopathy. If his cardiac function and renal function decline he will need evaluation for heart and kidney transplantation. I reiterated the need for compliance with medications and keeping his blood sugar at goal. He is also on spironolactone as well with serum K being normal . His volume status is optimal. He should avoid nonsteroidal anti-inflammatory medications. All his and his 's questions were answered. Follow-up blood work was ordered. Follow-up appointment was given Orders: Orders Calcium Today I10 - Essential (primary) hypertension, N18.32 - Chronic kidney disease, stage 3b Blood Urea Nitrogen Today I10 - Essential (primary) hypertension, N18.32 - Chr onic kidney disease, stage 3b Electrolytes Today I10 - Essential (primary) hypertension, N18.32 - Chronic kidney disease, stage 3b Creatinine Today I10 - Essential (primary) hypertension, N18.32 - Chronic kidney disease, stage 3b Coding Level of Care Code Est Pt Level 4 (25855) Diagnoses CKD stage G3b/A1, GFR 30-44 and albumin creatinine ratio <30 mg/g N18.32 Primary hypertension I10 Hypertension type: primary hypertension
[2024-06-02 12:09] VITALS: BP 90/60; PULSE 65; O2SAT 97; BMI 30.9
== END 2024-06-02 12:23 | disposition home or self-care (01) ==
PROVIDERS: PCP Internal Medicine; Visit Provider Internal Medicine Nephrology
DX: N18.32 Chronic kidney disease, stage 3b (principal); I10 Essential (primary) hypertension
CPT/HCPCS: 99214

== ENCOUNTER → 2024-06-02 12:04 | Outpatient (BNVA) | payer OTHER, SELFPAY | PROVIDERS: PCP Internal Medicine; Visit Provider Internal Medicine Nephrology | DX: I12.9 Hypertensive chronic kidney disease with stage 1 through stage 4 chronic kidney disease, or unspecified chronic kidney disease (principal); N18.32 Chronic kidney disease, stage 3b | CPT/HCPCS: 99212 ==

== ENCOUNTER 2024-06-14 12:55 | Outpatient (AMB) | payer OTHER, SELFPAY ==
[2024-06-14 13:07] VITALS: BP 100/60; PULSE 60; BMI 30.8
--- NOTE | 2024-06-14 13:07 | MHC.OFFVIS ---
Vital Signs 06/14/24 13:07 Height 5 ft 8 in Weight 202 lb 13.204 oz BMI 30.8 BP 100/60 Blood Pressure Location Lt brachial Position Sitting Pulse 60 Pulse Source Monitor Intake Visit Reasons: 2 mth [facility] Intake Note: 2 mth f/up with device check Pinking Sewing Machine Operator Required: Yes Pinking Sewing Machine Operator Name: clare sr/yennifer/czech Accompanied by: Spouse Allergies No Known Allergies [No Known Allergies*] Allergy (Verified 06/02/24 12:12) Medication List - Last Reconciled 06/14/24 by Jose Nielson MD acetaminophen (Tylenol Extra Strength) 1,000 mg (2 x 500 mg) PO QID PRN albuterol sulfate 90 mcg/actuation 2 inhalations inhalation Q4-6H PRN albuterol sulfate 2.5 mg inhalation TID PRN aspirin 81 mg PO DAILY blood sugar diagnostic (FreeStyle Lite Strips) As directed four times a day carvedilol 12.5 mg See Protocol PO BID cholecalciferol (vitamin D3) 25 mcg PO QAM digoxin 250 mcg PO QAM dulaglutide (Trulicity) 1.5 mg subcut TU empagliflozin (Jardiance) 25 mg PO QAM fenofibrate 54 mg PO QAM flash glucose scanning reader (FollowapStyle Garrick 2 [place]) As directed flash glucose sensor (FreeStyle Garrick 2 Sensor kit) As directed every 2 weeks furosemide 80 mg PO QAM hydroxyzine pamoate 50 mg PO BEDTIME PRN insulin aspart U-100 See Protocol sliding scale doses subcut QIDACHS insulin glargine 40 units subcut BEDTIME ivabradine (Corlanor) 7.5 mg PO BID lancets (TRUEplus Lancets) Four times a day metformin 500 mg PO BID mirtazapine 45 mg PO BEDTIME omega 1-cft-xht-fish oil 300 mg (120 mg- 180mg)-1,000 mg 1 cap PO TID omeprazole 40 mg PO DAILY pen needle, diabetic (Pentips) As directed sacubitril-valsartan 24-26 mg (Entresto) 1 tab See Protocol PO BID sertraline 200 mg PO DAILY spironolactone 12.5 mg See Protocol PO DAILY HPI Comments Details: Oliver comes for follow-up. History was obtained with help of survey analyst. He underwent recently redo of his biventricular ICD with [employer] with left bundle-branch block lead. Patient did well after that. Currently says that he has been feeling better with improved shortness of breath with exertion. No heart failure symptoms. Denies any palpitations, syncope, ICD discharge. Does have low blood pressure and lightheadedness related to that. Uses CPAP. Denies any orthopnea, PND, leg edema. Taking all his medications regularly. [facility] Medical History ICD (implantable cardioverter-defibrillator) lead failure Biventricular ICD (implantable cardioverter-defibrillator) in place Nonischemic cardiomyopathy GERD (gastroesophageal reflux disease) Asthma NANO (obstructive sleep apnea) Obesity due to excess calories HLD (hyperlipidemia) Type 2 diabetes mellitus with chronic kidney disease Heart failure with reduced ejection fraction Implantable cardioverter-defibrillator lead failure High cholesterol Diabetes HTN (hypertension) Pacemaker Surgical History S/P ICD (internal cardiac defibrillator) procedure History of tonsillectomy Hx of cardiac cath Hx of transesophageal echocardiography (DAWN) for monitoring History of permanent cardiac pacemaker placement (~2008) History of circumcision Family History Father HTN (hypertension) Diabetes CVD (cardiovascular disease) Hypercholesterolemia Mother Hypercholesterolemia HTN (hypertension) Diabetes Social History Household Members: Significant Other Household Members Other:: SO:Thu Alcohol intake: current Alcohol intake frequency: 3 or more drinks per day Patient Tobacco Use Status: Never used Tobacco Tobacco use type: Cigarette service: No Review of Systems Const Denies chills, Denies fatigue, Denies fever(s), Denies frequent falls, Reports weakness, Denies weight gain and Denies weight loss ENT Reports dizziness Card Reports chest pain, Denies leg edema, Reports lightheadedness, Reports palpitations, Reports dyspnea and Reports dyspnea on exertion Resp Denies cough, Reports dyspnea and Reports dyspnea on exertion GI Denies hematochezia Musc Denies abnormal gait, Denies muscle weakness, Denies numbness, Denies radiating pain into limb and Denies tingling Neuro Denies abnormal gait, Reports dizziness, Denies frequent falls, Denies numbness, Denies tingling and Reports weakness Endo Denies fatigue and Reports palpitations Physical Exam Vital Signs: Last Vital Signs Pulse 60 06/14/24 13:07 BP 100/60 06/14/24 13:07 BMI result Body Mass Index 30.8 Const General: cooperative, comfortable, no acute distress, alert and awake Nutritional Appearance: obese Orientation/consciousness: patient oriented x3 Limitations: no limitations Neck Neck: Yes trachea midline, Yes supple and Yes no JVD Chest Chest palpation & inspection: normal inspection of the chest Resp Effort & Inspection: normal respiratory effort Auscultation: clear to auscultation bilaterally Cardio Jugular venous distension: no JVD Palpation: abnormal PMI displaced PMI Rate: regular rate Rhythm: regular rhythm Heart sounds: S1 normal heart sound present and S2 normal heart sound present GI Auscultation: normal bowel sounds Skin General skin exam: no rashes or lesions noted Neuro General: patient oriented x3 and no focal motor deficits Extrem General: Yes no clubbing, cyanosis or edema Psych Appearance: grossly normal Office Procedures Cardiac Device Check Cardiac Device Check Details: Biventricular [employer] ICD in place. Was reprogrammed for auto capture with battery life at 11 years now. Atrial and ventricular sensing was excellent. Atrial and biventricular pacing thresholds excellent. Pacing and shock lead impedance is stable. Couple of episodes of nonsustained ventricular tachycardia noted. Bi V pacing 97% of the time [id number] Cardiac Device Check, multi lead implantable defibrillator Procedure code (CPT) selection complete EKG Details: EKG shows atrially sensed, ventricularly paced rhythm with left bundle morphology [id number], Complete Assessment & Plan Assessment & Plan (1) Biventricular ICD (implantable cardioverter-defibrillator) in place: Code(s): Z95.810 - Presence of automatic (implantable) cardiac defibrillator Category: Medical Plan: Biventricular ICD with recent upgrade to functioning left bundle-branch block lead. Since then he said he has improved functional capacity which is expected. In the past he has done very well with LEAD DATA ARCHITECT. Will continue monitor remotely for heart failure as well as device check. Follow-up limited echocardiogram 6 weeks time, see below. (2) Heart failure with reduced ejection fraction: Code(s): I50.20 - Unspecified systolic (congestive) heart failure Category: Medical Plan: Heart failure with reduced ejection fraction with very advanced heart failure syndrome in the past which had improved with neurohormonal modulation as well as with LEAD DATA ARCHITECT therapy. Currently with much improved symptoms with NYHA class 1-2 symptoms. Follow-up limited echocardiogram in 6 weeks time. Continue neurohormonal modulation although noted low blood pressure lightheadedness. Will reduce carvedilol to 6.25 mg b.i.d.. Continue Entresto, spironolactone, Corlanor as well as Jardiance therapy. Continue current diuretic dose. Daily weight monitoring avoidance salt loading was discussed. Continue CPAP therapy. He is encouraged to continue to participate in regular physical activity and weight loss program. Follow up in the clinic in 6 months time, sooner p.r.n.. Thank you for allowing me to partake in his care Orders: Orders CA Echo Limited 6 Weeks I42.8 - Other cardiomyopathies Medications: New carvedilol (Coreg) must administer with a meal/food 6.25 mg PO BID 60 tabs 5RF Discontinued carvedilol Discontinued Reason: Doctor's Order 12.5 mg See Protocol PO BID 60 tabs 0RF Coding Level of Care Code Est Pt Level 4 (20438) Diagnoses Biventricular ICD (implantable cardioverter-defibrillator) in place Z95.810 Heart failure with reduced ejection fraction I50.20 CPT Codes Cardiac Device Check - Cardiac Device 6: 67926-PH Cardiac Device Check, multi lead implantable defibrillator ([id number]) EKG - CPT: 92243-[id number], Complete ([id number])
== END 2024-06-14 13:31 | disposition home or self-care (01) ==
PROVIDERS: PCP Internal Medicine; Visit Provider Internal Medicine Cardiovascular Disease
DX: Z95.810 Presence of automatic (implantable) cardiac defibrillator (principal); I50.20 Unspecified systolic (congestive) heart failure
CPT/HCPCS: 93010; 93284; 99214

== ENCOUNTER → 2024-06-14 12:55 | Outpatient (BNVA) | payer OTHER, SELFPAY | PROVIDERS: PCP Internal Medicine; Visit Provider Internal Medicine Cardiovascular Disease | DX: I50.20 Unspecified systolic (congestive) heart failure (principal); I42.8 Other cardiomyopathies; Z99.89 Dependence on other enabling machines and devices; Z95.810 Presence of automatic (implantable) cardiac defibrillator | CPT/HCPCS: 93005; 99212 ==

== ENCOUNTER 2024-07-02 08:49 | Outpatient (AMB) | payer OTHER, SELFPAY ==
[2024-07-02 08:51] VITALS: BP 100/74; BMI 30.9
--- NOTE | 2024-07-02 08:51 | MHC.OFFVIS ---
Vital Signs 07/02/24 08:51 Height 5 ft 8 in Weight 203 lb BMI 30.9 BP 100/74 Blood Pressure Location Rt brachial Position Sitting Intake Visit Reasons: 6 mnts f/u appt Intake Note: Patient presents for 6 month follow up Hand Dry Cleaner Required: Yes Hand Dry Cleaner Name: lei ortiz Allergies No Known Allergies [No Known Allergies*] Allergy (Verified 07/02/24 09:07) Medication List - Last Reconciled 07/02/24 by DARINEL Castillo acetaminophen (Tylenol Extra Strength) 1,000 mg (2 x 500 mg) PO QID PRN albuterol sulfate 90 mcg/actuation 2 inhalations inhalation Q4-6H PRN albuterol sulfate 2.5 mg inhalation TID PRN aspirin 81 mg PO DAILY blood sugar diagnostic (FreeStyle Lite Strips) As directed four times a day carvedilol (Coreg) 6.25 mg PO BID cholecalciferol (vitamin D3) 25 mcg PO QAM digoxin 250 mcg PO QAM dulaglutide (Trulicity) 1.5 mg subcut TU empagliflozin (Jardiance) 25 mg PO QAM fenofibrate 54 mg PO QAM flash glucose scanning reader (FreeStyle Garrick 2 [place]) As directed flash glucose sensor (FreeStyle Garrick 2 Sensor kit) As directed every 2 weeks furosemide 80 mg PO QAM hydroxyzine pamoate 50 mg PO BEDTIME PRN insulin aspart U-100 See Protocol sliding scale doses subcut QIDACHS insulin glargine 40 units subcut BEDTIME ivabradine (Corlanor) 7.5 mg PO BID lancets (TRUEplus Lancets) Four times a day metformin 500 mg PO BID mirtazapine 45 mg PO BEDTIME omega 9-wsm-kob-fish oil 300 mg (120 mg- 180mg)-1,000 mg 1 cap PO TID omeprazole 40 mg PO DAILY pen needle, diabetic (Pentips) As directed sacubitril-valsartan 24-26 mg (Entresto) 1 tab See Protocol PO BID sertraline 200 mg PO DAILY spironolactone 12.5 mg See Protocol PO DAILY HPI Comments Details: 53-yr-old male presents for follow-up visit for sleep apnea. Pt denies any significant medical changes since the last visit. Pt states he has not been able to use his CPAP, as his current masks is a full face mask, which he does not tolerate as he is claustrophobic. He states in the past, he used nasal pillows which he tolerated much better. States his dancing teacher wants him to use his CPAP nightly. He does wonder if he still needs to memo CPAP as he has lost 45 lbs since his last sleep study many years ago. He also notes episodes of waking up with body jerks (not coming from his pacemaker), restlessness in bed or sitting, and leg cramps when in bed or sitting for long. [facility], [facility] Medical History (Updated 07/02/24 @ 09:53 by DARINEL Castillo) ICD (implantable cardioverter-defibrillator) lead failure Biventricular ICD (implantable cardioverter-defibrillator) in place Nonischemic cardiomyopathy GERD (gastroesophageal reflux disease) Asthma NANO (obstructive sleep apnea) Obesity due to excess calories HLD (hyperlipidemia) Type 2 diabetes mellitus with chronic kidney disease Heart failure with reduced ejection fraction Implantable cardioverter-defibrillator lead failure High cholesterol Diabetes HTN (hypertension) Pacemaker Surgical History S/P ICD (internal cardiac defibrillator) procedure History of tonsillectomy Hx of cardiac cath Hx of transesophageal echocardiography (DAWN) for monitoring History of permanent cardiac pacemaker placement (~2008) History of circumcision Family History Father HTN (hypertension) Diabetes CVD (cardiovascular disease) Hypercholesterolemia Mother Hypercholesterolemia HTN (hypertension) Diabetes Social History Household Members: Significant Other Household Members Other:: SO:Thu Alcohol intake: current Alcohol intake frequency: 3 or more drinks per day Patient Tobacco Use Status: Never used Tobacco Tobacco use type: Cigarette service: No Physical Exam Vital Signs: Last Vital Signs BP 100/74 07/02/24 08:51 BMI result Body Mass Index 30.9 Const General: no acute distress Orientation/consciousness: patient oriented x3 Resp Effort & Inspection: able to speak in complete sentences Neuro General: patient oriented x3 Psych Mental Status: mental status grossly normal Speech and movement: Clear speech present Attitude: cooperative Assessment & Plan Assessment & Plan (1) NANO (obstructive sleep apnea): Code(s): G47.33 - Obstructive sleep apnea (adult) (pediatric) Category: Medical (2) Muscle cramps: Code(s): R25.2 - Cramp and spasm Category: Medical (3) Restless legs syndrome (RLS): Code(s): G25.81 - Restless legs syndrome Category: Medical Plan Will request in-lab PSG to assess status of obstructive sleep apnea, as pt reports he has had 45 lb weight loss since the last sleep study. In the meantime, continue CPAP 12 cmH2O nightly > 4 hrs. Will request new mask fitting for nasal pillow/mask. Will check labs for common etiologies of nocturnal/rest muscle cramps and restless leg symptoms. f/u in 6 months or sooner prn. Orders: Orders CRP High Sensitivity Today I10 - Essential (primary) hypertension, I42.8 - Other cardiomyopathies, R25.2 - Cramp and spasm TSH reflex Free T4 Today I10 - Essential (primary) hypertension, I42.8 - Other cardiomyopathies, R25.2 - Cramp and spasm Magnesium Today R25.2 - Cramp and spasm Complete Blood Count Auto Diff Today I10 - Essential (primary) hypertension, I42.8 - Other cardiomyopathies, R25.2 - Cramp and spasm Comprehensive Met. Panel Today I10 - Essential (primary) hypertension, I42.8 - Other cardiomyopathies, R25.2 - Cramp and spasm Creatine Kinase Total Today I10 - Essential (primary) hypertension, I42.8 - Other cardiomyopathies, R25.2 - Cramp and spasm Erythrocyte Sedimentation Rate Today I10 - Essential (primary) hypertension, I42.8 - Other cardiomyopathies, R25.2 - Cramp and spasm Vitamin B12 and Folate Today I10 - Essential (primary) hypertension, I42.8 - Other cardiomyopathies, R25.2 - Cramp and spasm Vitamin D 25-OH (D2 and D3) Today I10 - Essential (primary) hypertension, I42.8 - Other cardiomyopathies, R25.2 - Cramp and spasm RT PSG in-lab sleep study Today E66.09 - Other obesity due to excess calories, Z68.33 - Body mass index [BMI] 33.0-33.9, adult Coding Level of Care Code Est Pt Level 4 (15549) Diagnoses NANO (obstructive sleep apnea) G47.33 Muscle cramps R25.2 Restless legs syndrome (RLS) G25.81
== END 2024-07-02 09:48 | disposition home or self-care (01) ==
PROVIDERS: PCP Internal Medicine; Visit Provider Nurse Practitioner Family
DX: G47.33 Obstructive sleep apnea (adult) (pediatric) (principal); R25.2 Cramp and spasm
CPT/HCPCS: 99214

== ENCOUNTER → 2024-07-02 08:49 | Outpatient (BNVA) | payer OTHER, SELFPAY | PROVIDERS: PCP Internal Medicine; Visit Provider Nurse Practitioner Family | DX: G47.33 Obstructive sleep apnea (adult) (pediatric) (principal); G25.81 Restless legs syndrome; I10 Essential (primary) hypertension; I42.8 Other cardiomyopathies; Z99.89 Dependence on other enabling machines and devices | CPT/HCPCS: 99212 ==

== ENCOUNTER 2024-07-20 11:18 | Outpatient (REF) | payer OTHER, SELFPAY ==
[2024-07-20 12:49] LABS: Anion Gap 11 (12-20); Blood Urea Nitrogen 23 mg/dL (9-16); Calcium 9.3 mg/dL (8.4-10.2); Carbon Dioxide 22 mmol/L (22-29); Chloride 106 mmol/L (96-108); Estimated Glomerular Filt Rate 51; Sodium 135 mmol/L (135-145)
== END 2024-07-20 11:19 | disposition home or self-care (01) ==
LOC: HO.LAB 11:18
PROVIDERS: Absent Provider Internal Medicine Nephrology; PCP Internal Medicine; Visit Provider Nurse Practitioner Family
DX: I10 Essential (primary) hypertension (principal); N18.32 Chronic kidney disease, stage 3b
CPT/HCPCS: 36415; 80051; 82310; 82565; 84520

== ENCOUNTER → 2024-07-26 10:41 | Outpatient (REF) | payer OTHER, SELFPAY ==
--- NOTE | 2024-07-26 10:46 | CA_ITS ---
Transthoracic Echocardiogram Patient (Last, First, Middle): Ian Hernandez, Gender: Male Date of : 1970 Age: 54 Procedure Date: 07/26/2024 Procedure Type: Transthoracic Echocardiogram Location: OP Height: 172.72 cm Weight: 92.08 kg BSA: 2.06 m2 Heart Rate: bpm BP: 100 / 60 mmHg Platform Beater: FRANCES Referring MD: Jose Nielson MD Symptoms: I42.8 - Other cardiomyopathies Study Quality: Adequate with contrast Conclusions: - The left ventricular systolic function is mildly decreased. The visually estimated ejection fraction is between 45-50%. Findings Procedure Information Contrast agent, definity, is being given per protocol without apparent complications. Left Ventricle Normal left ventricular cavity size. The left ventricular systolic function is mildly decreased. The visually estimated ejection fraction is between 45 50%. There is paradoxical septal motion consistent with a left bundle branch block. Prior Study Comparison Changes noted compared to prior study dated: 02/19/2024. LVEF slightly higher than prior study. Measurements 2D Linear Measurements IVSd: 0.95 0.6-0.9/0.6-1.0 cm LVIDd: 5.89 3.9-5.3/4.2-5.9 cm LVIDd Index: 2.86 2.4-3.2/2.2-3.1 cm/m2 LVIDs: 4.58 2.0-3.6 cm LVPWd: 0.71 0.7-1.1 cm LV Mass: 235.79 67-162/88-224 g LV Mass Index: 114.46 43-95/49-115 g/m2 LVOT Diam: 2.00 3.0+(-)1.3 cm 2D Systolic Function EF 4C: 37.30 >55% EF 2C: 68.60 >55% EF BiP: 56.80 >55% LVOT LVOT Pk Austyn: 0.88 LVOT Mn Austyn: 0.64 LVOT VTI: 0.17 LVOT Pk Grad: 3.00 LVOT Mn Grad: 2.00 LVOT Diam: 2.00 LVOT Area: 3.14 Updated in Other Vendor System with Status of Final Marcelo Joel MD electronically signed on 07/27/2024 12:38:04 PM with status of Final
== END ==
LOC: HO.CARD 10:41
PROVIDERS: PCP Internal Medicine; Visit Provider Internal Medicine Cardiovascular Disease
DX: I42.8 Other cardiomyopathies (principal)
CPT/HCPCS: 93308; Q9957

== ENCOUNTER → 2024-07-26 10:46 | Outpatient (BNV) | payer OTHER, SELFPAY | PROVIDERS: PCP Internal Medicine; Visit Provider Internal Medicine | DX: I44.7 Left bundle-branch block, unspecified (principal) | CPT/HCPCS: 93308 ==

== ENCOUNTER 2024-07-29 11:41 | Outpatient (REF) | payer OTHER, SELFPAY ==
--- NOTE | ~2024-07-29 | XR_ITS ---
EXAMINATION: XR FOOT, RIGHT CLINICAL INFORMATION: Foot pain. Pain 3 months. Denies injury COMPARISON: X-ray right ankle 03/19/2024 TECHNIQUE: 4 views of the right foot. FINDINGS: Alignment is anatomic. Mild first joint arthritis. Mild arthritis in some of the interphalangeal joints of the toes. No acute displaced fracture is appreciated. Small plantar and posterior calcaneal spur. Vascular calcification. No unexpected radiopaque densities. XR/XR foot RT min 3V IMPRESSION: Mild arthritis. No radiographic evidence of acute fracture. Calcaneal spur Electronically signed by: Judd Walker MD 07/29/2024 02:10 PM EDT
== END 2024-07-29 11:42 | disposition home or self-care (01) ==
LOC: HO.HHCX 11:41
PROVIDERS: Visit Provider Internal Medicine
DX: M79.671 Pain in right foot (principal)
CPT/HCPCS: 73630

== ENCOUNTER 2024-09-03 09:22 | Outpatient (AMB) | payer OTHER, SELFPAY ==
--- NOTE | 2024-09-03 09:35 | HO.NEPHOV_ITS ---
Vital Signs 09/03/24 09:37 Height 5 ft 8 in Weight 202 lb 2 oz BMI 30.7 BP 80/60 L Blood Pressure Location Lt brachial Position Sitting Pulse 84 Pulse Source Pulse Oximeter Pulse Oximetry (%) 97 Oxygen Delivery Method Room Air Intake Visit Reasons: CKD-Conf Boat Painter Required: No Accompanied by: Significant Other Allergies No Known Allergies [No Known Allergies*] Allergy (Verified 09/03/24 09:37) HPI Comments Details: Ian was seen in follow-up his chronic kidney disease. He has cardiomyopathy. He is followed up in [place] for his heart issues. His diabetic control is better. He is now compliant with medications. His was physically present during the encounter. He denies any chest pain, shortness of breath, nausea, vomiting, diarrhea, pedal edema or dizziness. He denies taking nonsteroidal anti-inflammatory medications. His recent serum creatinine is close to baseline [facility] Medical History (Updated 07/02/24 @ 09:53 by DARINEL Castillo) ICD (implantable cardioverter-defibrillator) lead failure Biventricular ICD (implantable cardioverter-defibrillator) in place Nonischemic cardiomyopathy GERD (gastroesophageal reflux disease) Asthma NANO (obstructive sleep apnea) Obesity due to excess calories HLD (hyperlipidemia) Type 2 diabetes mellitus with chronic kidney disease Heart failure with reduced ejection fraction Implantable cardioverter-defibrillator lead failure High cholesterol Diabetes HTN (hypertension) Pacemaker Surgical History S/P ICD (internal cardiac defibrillator) procedure History of tonsillectomy Hx of cardiac cath Hx of transesophageal echocardiography (DAWN) for monitoring History of permanent cardiac pacemaker placement (~2008) History of circumcision Family History Father HTN (hypertension) Diabetes CVD (cardiovascular disease) Hypercholesterolemia Mother Hypercholesterolemia HTN (hypertension) Diabetes Social History Household Members: Significant Other Household Members Other:: SO:Thu Alcohol intake: current Alcohol intake frequency: 3 or more drinks per day Patient Tobacco Use Status: Never used Tobacco Tobacco use type: Cigarette service: No Review of Systems Const All systems reviewed & are unremarkable except as noted in HPI and below Physical Exam Vital Signs: Last Vital Signs Pulse 84 09/03/24 09:37 BP 80/60 L 09/03/24 09:37 Pulse Ox 97 09/03/24 09:37 Oxygen Delivery Method Room Air 09/03/24 09:37 BMI result Body Mass Index 30.7 Const General: comfortable and no acute distress Orientation/consciousness: patient oriented x3 HEENT Head: Yes normocephalic Mouth: Normal oral and palatal mucosa present Eyes EOM: EOMs intact bilaterally Neck Neck: Yes supple Resp Auscultation: clear to auscultation bilaterally Cardio Jugular venous distension: no JVD Rate: regular rate GI Palpation (GI): Soft to palpation Auscultation: normal bowel sounds General: Yes no CVA tenderness Back/Spine/Pelvis Back: no CVA tenderness Skin General skin exam: no rashes or lesions noted Neuro General: patient oriented x3 and moves all extremities Extrem General: Yes no pedal edema Results Reviewed Nephrology Results: Sodium 135 mmol/L (135-145) 07/20/24 Potassium 4.0 mmol/L (3.3-5.1) 07/20/24 Chloride 106 mmol/L (96-108) 07/20/24 Carbon Dioxide 22 mmol/L (22-29) 07/20/24 BUN 23 mg/dL (9-16) H 07/20/24 Creatinine 1.44 mg/dL (0.5-1.4) H 07/20/24 Calcium 9.3 mg/dL (8.4-10.2) 07/20/24 Assessment & Plan Assessment & Plan (1) CKD stage G3b/A1, GFR 30-44 and albumin creatinine ratio <30 mg/g: Code(s): N18.32 - Chronic kidney disease, stage 3b Category: Medical (2) HTN (hypertension): Code(s): I10 - Essential (primary) hypertension Category: Medical Qualifiers: Hypertension type: primary hypertension Qualified Code(s): I10 - Essential (primary) hypertension Plan Ian has chronic kidney disease & the serum creatinine is close to baseline now. His blood sugar control is better. He is on Jardiance as well as Entresto. He is followed up closely in [place] for his cardiomyopathy. If his cardiac function and renal function decline he will need evaluation for heart and kidney transplantation. I reiterated the need for compliance with medications and keeping his blood sugar at goal. He is also on spironolactone as well with serum K being normal . His volume status is optimal. He should avoid nonsteroidal anti-inflammatory medications. All his and his 's questions were answered. Follow-up blood work was ordered. Follow-up appointment was given Orders: Orders Creatinine 3 Months I10 - Essential (primary) hypertension, N18.32 - Chronic kidney disease, stage 3b Blood Urea Nitrogen 3 Months I10 - Essential (primary) hypertension, N18.32 - Chronic kidney disease, stage 3b Parathyroid Hormone Intact 3 Months I10 - Essential (primary) hypertension, N18.32 - Chronic kidney disease, stage 3b Complete Blood Count Auto Diff 3 Months I10 - Essential (primary) hypertension, N18.32 - Chronic kidney disease, stage 3b Electrolytes 3 Months I10 - Essential (primary) hypertension, N18.32 - Chronic kidney disease, stage 3b Calcium 3 Months I10 - Essential (primary) hypertension, N18.32 - Chronic kidney disease, stage 3b Vitamin D 25-OH Total 3 Months I10 - Essential (primary) hypertension, N18.32 - Chronic kidney disease, stage 3b Coding Level of Care Code Est Pt Level 4 (65459) Diagnoses CKD stage G3b/A1, GFR 30-44 and albumin creatinine ratio <30 mg/g N18.32 Primary hypertension I10 Hypertension type: primary hypertension
[2024-09-03 09:37] VITALS: BP 80/60; PULSE 84; O2SAT 97; BMI 30.7
== END 2024-09-03 09:47 | disposition home or self-care (01) ==
PROVIDERS: PCP Internal Medicine; Visit Provider Internal Medicine Nephrology
DX: I12.9 Hypertensive chronic kidney disease with stage 1 through stage 4 chronic kidney disease, or unspecified chronic kidney disease (principal); N18.32 Chronic kidney disease, stage 3b
CPT/HCPCS: 99214

== ENCOUNTER → 2024-09-03 09:22 | Outpatient (BNVA) | payer OTHER, SELFPAY | PROVIDERS: PCP Internal Medicine; Visit Provider Internal Medicine Nephrology | DX: I12.9 Hypertensive chronic kidney disease with stage 1 through stage 4 chronic kidney disease, or unspecified chronic kidney disease (principal); N18.32 Chronic kidney disease, stage 3b | CPT/HCPCS: 99212 ==

== ENCOUNTER 2024-09-13 10:08 | Outpatient (AMB) | payer OTHER, SELFPAY ==
--- NOTE | 2024-09-13 10:38 | MHC.OFFVIS ---
Intake Visit Reasons: OV- Inj- Right knee injection, last inj 05/03/24 Intake Note: Ian is a 54 year old male who presents today for a repeat injection for his right knee, last injection 05/03/24. Patient reports his last injection gave him about 3 - 4 months of relief. Allergies No Known Allergies [No Known Allergies*] Allergy (Verified 09/13/24 10:45) HPI HPI OV- Inj- Right knee injection, last inj 05/03/24: Details: 54-year-old male, who is Indonesian speaking, presents in the office today for a follow-up of right knee pain. I last saw the patient in the office on 05/03/24 when he received a cortisone injection in the right knee. While in the office today, the patient reports his last cortisone injection in the right knee provided about 3-4 months of relief. He would like to have a repeat injection today. The patient has a significant medical history of diabetes mellitus. [facility] Medical History (Updated 07/02/24 @ 09:53 by DARINEL Castillo) ICD (implantable cardioverter-defibrillator) lead failure Biventricular ICD (implantable cardioverter-defibrillator) in place Nonischemic cardiomyopathy GERD (gastroesophageal reflux disease) Asthma NANO (obstructive sleep apnea) Obesity due to excess calories HLD (hyperlipidemia) Type 2 diabetes mellitus with chronic kidney disease Heart failure with reduced ejection fraction Implantable cardioverter-defibrillator lead failure High cholesterol Diabetes HTN (hypertension) Pacemaker Surgical History S/P ICD (internal cardiac defibrillator) procedure History of tonsillectomy Hx of cardiac cath Hx of transesophageal echocardiography (DAWN) for monitoring History of permanent cardiac pacemaker placement (~2008) History of circumcision Family History Father HTN (hypertension) Diabetes CVD (cardiovascular disease) Hypercholesterolemia Mother Hypercholesterolemia HTN (hypertension) Diabetes Social History Household Members: Significant Other Household Members Other:: SO:Thu Alcohol intake: current Alcohol intake frequency: 3 or more drinks per day Patient Tobacco Use Status: Never used Tobacco Tobacco use type: Cigarette service: No Review of Systems Const All systems reviewed & are unremarkable except as noted in HPI and below Physical Exam Const General: cooperative, healthy appearing and no acute distress Resp Effort & Inspection: normal respiratory effort and able to speak in complete sentences Cardio Rate: regular rate Peripheral pulses: Peripheral pulses 2+ throughout GI Palpation (GI): Soft to palpation Skin Lesions: no lesions Rashes: no rashes Extrem Other: Right knee: Normal to inspection. No ecchymosis, erythema, or joint effusion. No tenderness to palpation to the medial or lateral joint lines. ROM is 10-95 degrees. Negative Kenji's. Negative anterior draw. NVI. Office Procedures AMB Joint Injection/Aspiration Joint Injection/Aspiration Primary Site: right knee Prep: site was prepped using aseptic technique, ethochloride spray was applied and injection warnings given Injected: 40 mg of, DepoMedrol, with 8 mL of (2% plain lido ) and in the joint Approach Used: anterolateral Procedure: The patient tolerated the procedure well, but had some pain with the injection and there was some relief with the local anesthesia Coding 97567 - Large joint Procedure code (CPT) selection complete Assessment & Plan Assessment & Plan (1) Osteoarthritis of right knee: Code(s): M17.11 - Unilateral primary osteoarthritis, right knee Category: Medical Qualifiers: Osteoarthritis type: unspecified Qualified Code(s): M17.11 - Unilateral primary osteoarthritis, right knee (2) Diabetes: Code(s): E11.9 - Type 2 diabetes mellitus without complications Category: Medical Plan Mr. Godinez is a 54-year-old male, who is Indonesian speaking, presents in the office today for a follow-up of right knee pain. I last saw the patient in the office on 05/03/24 when he received a cortisone injection in the right knee. While in the office today, the patient reports his last cortisone injection in the right knee provided about 3-4 months of relief. He would like to have a repeat injection today. The patient has a significant medical history of diabetes mellitus. The patient was offered a cortisone injection in the right knee with 40 mg of Depo-Medrol. The patient was explained the risk, benefits, and alternatives to receiving this injection. After receiving consent for the injection, the patient had the procedure done while in the office today. The patient tolerated the procedure well with no complications. Due to the patient?s history of diabetes, they were instructed to monitor his blood glucose level. The patient was informed that they could see a rise in their numbers and if the numbers became too high, they were instructed to call their PCP. The patient was also informed that they could have facial flushing as a side effect of the injection but this will pass. Follow up will be PRN, or sooner if needed. Patient Instructions: Scribed by Janae Hoover emergency medical technician basic, for Destini Champion PA-C on 09/13/2024 at 10:57 am EST. Coding Level of Care Code Est Pt Level 4 (69660) Diagnoses Osteoarthritis of right knee, unspecified osteoarthritis type M17.11 Osteoarthritis type: unspecified Diabetes E11.9 CPT Codes Coding - 33929 Large joint: 87329 - Large joint ([id number])
== END 2024-09-13 10:46 | disposition home or self-care (01) ==
PROVIDERS: PCP Internal Medicine; Visit Provider Physician Assistant
DX: M17.11 Unilateral primary osteoarthritis, right knee (principal); E11.9 Type 2 diabetes mellitus without complications
CPT/HCPCS: 20610; 99213

== ENCOUNTER → 2024-09-13 10:08 | Outpatient (BNVA) | payer OTHER, SELFPAY | PROVIDERS: PCP Internal Medicine; Visit Provider Physician Assistant | DX: M17.11 Unilateral primary osteoarthritis, right knee (principal); E11.9 Type 2 diabetes mellitus without complications | CPT/HCPCS: 20610; 99212; J1010; J2003 ==

== ENCOUNTER 2024-10-11 08:58 | Outpatient (REF) | payer OTHER, SELFPAY | END 2024-10-11 08:59 | disposition home or self-care (01) | LOC: HO.HOSX 08:58 | PROVIDERS: Visit Provider Physician Assistant | DX: Z13.89 Encounter for screening for other disorder (principal) ==

== ENCOUNTER 2024-10-16 11:23 | Emergency (ER) | payer OTHER, SELFPAY ==
--- NOTE | ~2024-10-16 | XR_ITS ---
EXAMINATION: XR CHEST CLINICAL INFORMATION: asthma, cough, sob COMPARISON: Chest 08/13/2023 TECHNIQUE: 2 views of the chest were obtained. FINDINGS: The lungs are well-expanded and clear acute process. There are pacer electrodes in right atrium and right ventricle. Heart size and pulmonary vascularity is normal. No gross bony abnormality seen. XR/XR chest 2V IMPRESSION: Unremarkable chest exam. Electronically signed by: Orlando Atkinson MD 10/16/2024 12:55 PM BARBARA
[2024-10-16 11:53] VITALS: BP 110/68; PULSE 96; RESP 18; TEMP 36.9; O2SAT 97; BMI 31.3
--- NOTE | 2024-10-16 11:53 | ED.ASTHMA ---
HPI - Asthma General Chief Complaint: Asthma Stated Complaint: asthma Time Seen by Provider: 10/16/24 12:06 Source: patient, family, RN notes reviewed and old records reviewed Mode of arrival: ambulatory Limitations: no limitations History of Present Illness ED Provider: Marian Jara PA-C HPI Narrative: 54 yo male with history of CKD, DM, NANO, nonischemic cardiomyopathy s/p ICD/PPM, HTN, HLD, who presents to the ER for evaluation of worsening asthma symptoms for the last 6 days. He reports chest tightness, shortness of breath wheezing, dry cough. He states his home nebulizer machine is broken and does not dispense the medication appropriately. He reports last night he was unable to sleep well due to coughing and shortness of breath. He denies any associated chest pain other than when he is coughing. He has had subjective fever and chills. He denies any known sick contacts. He denies any nausea, vomiting, diarrhea, abdominal pain. No leg swelling. MD complaint: shortness of breath and wheezing Onset (ago): day(s) Severity: moderate Context: medication non-compliance Associated symptoms: dry cough Treatments Prior to Arrival: inhaled bronchodilator Related Data Current Asthma Therapy: inhaled bronchodilator Home Medications ?Medication ?Instructions ?Recorded ?Confirmed cholecalciferol (vitamin D3) 25 25 mcg PO QAM 08/16/20 07/02/24 mcg (1,000 unit) tablet insulin glargine 100 unit/mL 40 unit subcut BEDTIME 03/13/21 07/02/24 subcutaneous solution sertraline 100 mg tablet 200 mg PO DAILY 03/13/21 07/02/24 hydroxyzine pamoate 50 mg capsule 50 mg PO BEDTIME PRN Anxiety 06/26/21 07/02/24 mirtazapine 45 mg tablet 45 mg PO BEDTIME 06/26/21 07/02/24 omeprazole 40 mg capsule,delayed 40 mg PO DAILY 11/01/21 07/02/24 release pen needle, diabetic 32 gauge x #50 ea 11/01/21 07/02/24 (Pentips Pen Needle) aspirin 81 mg tablet,delayed 81 mg PO DAILY 10/16/22 07/02/24 release albuterol sulfate 2.5 mg/3 mL 2.5 mg inhalation TID PRN wheezing 08/13/23 07/02/24 (0.083 %) solution for nebulization dulaglutide 1.5 mg/0.5 mL 1.5 mg subcut TU 08/13/23 07/02/24 subcutaneous pen injector (Trulicity) fenofibrate 54 mg tablet 54 mg PO QAM 08/13/23 07/02/24 insulin aspart U-100 100 unit/mL See Protocol subcut QIDACHS 08/13/23 07/02/24 (3 mL) subcutaneous pen omega-3 300 mg-dha 120 mg-epa 180 1 cap PO TID 08/13/23 07/02/24 mg-fish oil 1,000 mg capsule Previous Rx's ?Medication ?Instructions ?Recorded albuterol sulfate 90 mcg/actuation 2 inh inhalation Q4-6H PRN 08/01/20 breath activated powder inhaler shortness of breath or wheezing #1 ea lancets 33 gauge (TRUEplus Lancets) #200 ea 03/13/21 flash glucose scanning reader #1 ea 01/31/22 (FreeStyle Garrick 2 [place]) flash glucose sensor (FreeStyle #2 ea 01/31/22 Garrick 2 Sensor kit) metformin 500 mg tablet 500 mg PO BID #60 tabs 02/05/22 empagliflozin 25 mg tablet 25 mg PO QAM #30 tabs 04/30/22 (Jardiance) blood sugar diagnostic (FreeStyle #150 ea 05/02/22 Lite Strips) acetaminophen 500 mg tablet 1,000 mg (2 x 500 mg) PO QID PRN 05/16/22 (Tylenol Extra Strength) fever or pain #14 tabs furosemide 80 mg tablet 80 mg PO QAM #90 tabs 09/26/22 sacubitril 24 mg-valsartan 26 mg 1 tab PO BID #30 tabs 08/15/23 tablet (Entresto) spironolactone 25 mg tablet 12.5 mg PO DAILY #30 tabs 08/15/23 digoxin 250 mcg (0.25 mg) tablet 250 mcg PO QAM #90 tabs 10/15/23 carvedilol 6.25 mg tablet (Coreg) 6.25 mg PO BID #60 tabs 06/14/24 ivabradine 7.5 mg tablet (Corlanor) 7.5 mg PO BID #180 tabs 08/23/24 albuterol sulfate 2.5 mg/0.5 mL 5 mg inhalation Q6H PRN shortness 10/16/24 solution for nebulization of breath or wheezing #30 ea azithromycin 250 mg tablet See Rx Instructions PO .COMPLEX #6 10/16/24 (Zithromax Z-Chepe) tabs nebulizers (AeroEclipse II #1 ea 10/16/24 Nebulizer) prednisone 20 mg tablet 40 mg (2 x 20 mg) PO DAILY #10 tabs 10/16/24 Allergies Allergy/AdvReac Type Severity Reaction Status Date / Time No Known Allergies Allergy Verified 10/16/24 11:57 [No Known Allergies*] Review of Systems Review of Systems: Yes all other systems are reviewed and are negative [facility] Past Medical History Medical History (Updated 10/16/24 @ 14:17 by FLOR Baez) ICD (implantable cardioverter-defibrillator) lead failure Biventricular ICD (implantable cardioverter-defibrillator) in place Nonischemic cardiomyopathy GERD (gastroesophageal reflux disease) Asthma NANO (obstructive sleep apnea) Obesity due to excess calories HLD (hyperlipidemia) Type 2 diabetes mellitus with chronic kidney disease Heart failure with reduced ejection fraction Implantable cardioverter-defibrillator lead failure High cholesterol Diabetes HTN (hypertension) Pacemaker Surgical History S/P ICD (internal cardiac defibrillator) procedure History of tonsillectomy Hx of cardiac cath Hx of transesophageal echocardiography (DAWN) for monitoring History of permanent cardiac pacemaker placement (~2008) History of circumcision Family History Family History Father HTN (hypertension) Diabetes CVD (cardiovascular disease) Hypercholesterolemia Mother Hypercholesterolemia HTN (hypertension) Diabetes Social History Social History Household Members: Significant Other Household Members Other:: SO:Thu Alcohol intake: current Alcohol intake frequency: 3 or more drinks per day Patient Tobacco Use Status: Never used Tobacco Tobacco use type: Cigarette Advance Directives: No Advance Directives Information Provided: No service: No Physical Exam Vital Signs: Vital Signs: Last Vital Signs Temp 98.5 F 10/16/24 14:30 Pulse 103 H 10/16/24 14:30 Resp 16 10/16/24 14:30 BP 122/58 L 10/16/24 14:30 Pulse Ox 98 10/16/24 14:30 O2 Del Method Room Air 10/16/24 14:30 BMI result Body Mass Index 31.3 Appearance: Alert. Oriented X3. No acute distress. Head: normocephalic, atraumatic. Eyes: Pupils equal, round and reactive to light. ENT: Pharynx normal. No tonsillar swelling or exudate. Neck: Normal inspection. Neck supple. CVS: Normal heart rate and rhythm. Pulses normal. Respiratory: Mild respiratory distress, RR 20. Breath sounds wtih audible insp/exp wheezing throughout, coarse. Abdomen: Soft and nontender. +BS x4 Skin: Skin warm and dry. Normal skin color. Normal skin turgor. No rashes. Extremities: No lower extremity edema. No joint swelling. superficial abrasions on fingers on both hands Neuro/psych: Oriented X 3. No motor deficit. No sensory deficit. CN II-XII intact. Normal speech and cognition. Course Course Course Narrative: This is a Rapid Medical Exam performed in triage by Caitlin Alexandra PA-C. Full HPI, ROS and PE to be performed by primary ED provider. 54yo M w/PMHx GERD, asthma, NANO, HLD, diabetes, AICD, cardiomyopathy presenting to the ED c/o asthma exacerbation since Friday with dry cough, chest tightness & SOB. Has been using treatments at home w/o relief. Went to [facility] on & they prescribed Prednisone & some other medication w/o relief PE: +dry cough, insp/exp wheeze appreciated Plan: EKG, labs, CXR, viral testing Medications Administered Discontinued Medications Generic Name Dose Route Start Last Admin Trade Name Freq PRN Reason Stop Dose Admin Albuterol Sulfate 2.5 mg/ 5 mg 10/16/24 13:15 10/16/24 13:26 Albuterol Sulfate 2.5 mg INHALE 10/16/24 13:16 5 mg ONCE ONE Administration Bacitracin 1 appl 10/16/24 14:10 10/16/24 14:28 Bacitracin Oint 0.9 Gm Packet TOPICAL 10/16/24 14:11 1 appl ONCE ONE Administration Protocol Albuterol Sulfate 5 mg/ 0 mg 10/16/24 12:18 10/16/24 12:25 Albuterol/Ipratropium 3 ml INHALE 10/16/24 12:19 7.5 each ONCE ONE Administration Diphtheria/Tetanus/Acell Pertussis 0.5 ml 10/16/24 14:10 10/16/24 14:29 Diphth,Pertus(Acell),Tet Adult 0.5 Ml Syringe IM 10/16/24 14:11 0.5 ml .ONCE ONE Administration Insulin Human Lispro 10 unit 10/16/24 12:52 10/16/24 13:10 Insulin Lispro 100 Unit/Ml 3 Ml Vial SUBCUT 10/16/24 12:53 10 unit ONCE ONE Administration Prednisone 60 mg 10/16/24 12:24 10/16/24 12:44 Prednisone 20 Mg Tablet PO 10/16/24 12:25 60 mg ONCE ONE Administration Medical Decision Making Medical Decision Making MDM Narrative: 54 yo male with history of CKD, DM, NANO, nonischemic cardiomyopathy s/p ICD/PPM, HTN, HLD, who presents to the ER for evaluation of worsening asthma symptoms for the last 6 days. mild resp distress on arrival with audible wheezing. afebrile and hemodyncamically stable bronchodilator protocol ordered and patient given PO prednisone 60 mg labs showing no leukocytosis. there is a mild normocytic anemia. CKD is baseline. glucose 300s without anion gap. insulin sq given EKG w/ paced rhythm. troponin is nonischemic. no chest pain upon re-evaluation patient had ongoing wheezing although aeration was improved. another breathing treatment administererd cxr without focal infiltrate or effusion tested negative for covid, flu, rsv pt re-evaluated. he is feeling better after 2 nebs and steroids. he reports his neb machine at home is broken. will send a script for a new machine and albuterol refills. at this time he is stable for d/c home with treatment for acute bronchitis w/ steroids, nebs and zpack. advised to return if new or worsening symptoms. Differential Diagnosis Differential Diagnoses: The differential diagnosis associated with the presentation includes acute asthma exacerbation, acute CHF exacerbation, strep, covid, flu, rsv, other viral syndrome, bronchitis, pneumonia Admission/Observation Consideration of admission/observation: Escalation of care including admission/observation considered Lab Data [facility] Lab Attestation statement: I reviewed the patient's lab results. as above 10/16/24 12:21 10/16/24 12:21 Labs: Lab Results 10/16/24 10/16/24 Range/Units 12:21 13:10 WBC 8.2 (4.8-10.8) X10*3/uL RBC 4.71 (4.60-5.80) X10*6/uL Hgb 13.4 L (14.0-18.0) g/dl Hct 37.7 L (42.0-52.0) % MCV 80.0 (80.0-98.0) fL MCH 28.5 (27.0-33.0) pg MCHC 35.5 (31.0-36.0) g/dl RDW 12.7 (11.0-16.0) % Plt Count 230 (160-400) X10*3/uL MPV 9.8 (9.4-12.4) fL Immature Gran % (Auto) 1.2 H (0.0-0.4) % Neut % (Auto) 69.6 (45-73) % Lymph % (Auto) 20.5 (20-40) % Wagoner % (Auto) 7.4 (2-11) % Eos % (Auto) 1.1 (0-4) % Baso % (Auto) 0.2 (0-2) % Lymph # (Auto) 1.7 (1.2-4.9) X10*3/uL Wagoner # (Auto) 0.6 (0.1-1.2) X10*3/uL Eos # (Auto) 0.1 (0.0-0.4) X10*3/uL Baso # (Auto) 0.0 (0.0-0.2) X10*3/uL Abs Immat Gran (auto) 0.10 H (0.00-0.03) X10*3/uL Absolute Neuts (auto) 5.7 (2.0-8.3) x10*3/uL Absolute Nucleated RBC 0.000 (0.0-0.012) X10*3/uL Nucleated RBC % (auto) 0.0 (0.0-0.2) /100WBC Sodium 137 (135-145) mmol/L Potassium 3.8 (3.3-5.1) mmol/L Chloride 107 (96-108) mmol/L Carbon Dioxide 20 L (22-29) mmol/L Anion Gap 14 (12-20) BUN 30 H (9-16) mg/dL Creatinine 1.65 H (0.5-1.4) mg/dL Estim Creat Clear Calc 55.6 Estimated GFR 44 POC Glucose 340 H (60-115) mg/dL Random Glucose 339 H (60-115) mg/dL Calcium 8.8 (8.4-10.2) mg/dL Total Bilirubin 0.3 (0.0-1.0) mg/dL Direct Bilirubin 0.1 (0.0-0.5) mg/dL AST 19 (5-37) U/L ALT 23 (0-40) U/L Alkaline Phosphatase 73 (39-117) U/L Troponin I High Sens 5.1 D (<3.5-35.0) ng/L Total Protein 7.1 (6.5-8.0) g/dL Albumin 4.0 (3.5-5.0) g/dL Influenza Type A (PCR) NEGATIVE (Negative) Influenza Type B (PCR) NEGATIVE (Negative) RSV RNA Qual (PCR) NEGATIVE (Negative) SARS-CoV-2 RNA (RT-PCR) NEGATIVE (Negative) Independent Interpretation I performed an independent interpretation of an: Plain X-Ray Interpretation: no focal infiltrate or effusion Radiology Impression Discussion of test interpretation with radiology: I have reviewed the radiologist's reading. Independent Historian Clinical information obtained from an independent historian. History obtained from or confirmed by: Spouse External Record Review External record reviewed: Outpatient record, Prior outpatient labs and Prior outpatient radiology Prescription Management I considered prescription management with: Antibiotic and Other (bronchodilator, insulin, steroids) Chronic Conditions Patient?s care impacted by: Other (cardiomyopathy, asthma) Critical Care Time Critical Care Time Critical Care Time: Yes Total Critical Care Time: 36 Attestation: I have personally provided critical care time exclusive of time spent on separately billable procedures. Time includes review of lab data, radiology results, bedside reassessment of resp status after multiple neb treatments, and monitoring for potential decompensation. Intervention performed as documented. Discharge Plan Discharge Clinical Impression: Asthma exacerbation Qualifiers: Asthma severity: unspecified severity Asthma persistence: unspecified Qualified Code(s): J45.901 - Unspecified asthma with (acute) exacerbation Acute bronchitis Qualifiers: Bronchitis organism: unspecified organism Qualified Code(s): J20.9 - Acute bronchitis, unspecified Patient Disposition: Home, Self-Care Instructions: Asthma (DC), Acute Bronchitis (ED) Additional Instructions: You tested negative for COVID, flu, RSV. Your chest x-ray did not show any evidence of pneumonia. You are being treated for acute bronchitis with steroids, antibiotics and breathing treatments. Start the prednisone tomorrow and take it for 5 days. Your given 1st dose today in the ER. Adjust your insulin as needed. The prednisone is going to make her sugars higher. A paper prescription for the nebulizer is also provided in the event that the [facility] does not carry it. You may need to go to a medical supply store to fill this such as [facility] Follow up with your doctor next week If you develop new or worsening symptoms call 911 or come back to the ER for further evaluation. Prescriptions: New (DME) nebulizers [AeroEclipse II Nebulizer] [facility] See Rx Instructions .Route Qty: 1 0RF Rx Instructions: As directed albuterol sulfate 2.5 mg/0.5 mL solution for nebulization 5 mg inhalation Q6H PRN (Reason: shortness of breath or wheezing) Qty: 30 0RF azithromycin [Zithromax Z-Chepe] 250 mg tablet See Rx Instructions .ROUTE .COMPLEX Qty: 6 0RF Rx Instructions: take 500 mg today (day 1), then 250 mg for 4 days (days 2-5) prednisone 20 mg tablet 40 mg PO DAILY Qty: 10 0RF No Action metformin 500 mg tablet 500 mg PO BID Qty: 60 6RF Jardiance 25 mg tablet 25 mg PO QAM Qty: 30 6RF (DME) FreeStyle Lite Strips Strip See Rx Instructions .ROUTE .MEDSUPPLY Qty: 150 11RF Rx Instructions: As directed four times a day furosemide 80 mg tablet 80 mg PO QAM Qty: 90 3RF digoxin 250 mcg (0.25 mg) tablet 250 mcg PO QAM Qty: 90 3RF Corlanor 7.5 mg tablet 7.5 mg PO BID Qty: 180 3RF albuterol sulfate 90 mcg/actuation aerosol powdr breath activated 2 inh inhalation Q4-6H PRN (Reason: shortness of breath or wheezing) Qty: 1 0RF acetaminophen [Tylenol Extra Strength] 500 mg tablet 1,000 mg PO QID PRN (Reason: fever or pain) Qty: 14 0RF albuterol sulfate 2.5 mg /3 mL (0.083 %) solution for nebulization 2.5 mg inhalation TID PRN (Reason: wheezing) fenofibrate 54 mg tablet 54 mg PO QAM Trulicity 1.5 mg/0.5 mL pen injector 1.5 mg subcut TU omega 8-[id number]-lxn-fish oil 300 mg (120 mg- 180mg)-1,000 mg capsule 1 cap PO TID insulin aspart U-100 100 unit/mL (3 mL) insulin pen See Protocol subcut QIDACHS Protocol: Insulin Correction Scale Less than or equal to 110 ---- Give (units): 0 111 to 150 Give (units): 0 151 to 200 Give (units): 2 201 to 250 Give (units): 4 251 to 300 Give (units): 6 301 to 350 Give (units): 8 Greater than 350 Give (units): 10 Call MD if Blood Glucose > : 350 spironolactone 25 mg Tablet 12.5 mg PO DAILY Qty: 30 0RF Protocol: Hold for SBP< HOLD for SBP < : 90 Entresto 24-26 mg Tablet 1 tab PO BID Qty: 30 0RF Protocol: Hold for SBP< HOLD for SBP < : 90 cholecalciferol (vitamin D3) 25 mcg (1,000 unit) tablet 25 mcg PO QAM sertraline 100 mg tablet 200 mg PO DAILY insulin glargine 100 unit/mL solution 40 unit subcut BEDTIME (DME) lancets [TRUEplus Lancets] 33 gauge misc See Rx Instructions .ROUTE .MEDSUPPLY Qty: 200 11RF Rx Instructions: Four times a day mirtazapine 45 mg tablet 45 mg PO BEDTIME hydroxyzine pamoate 50 mg capsule 50 mg PO BEDTIME PRN (Reason: Anxiety) omeprazole 40 mg capsule,delayed release(DR/EC) 40 mg PO DAILY (DME) pen needle, diabetic [Pentips Pen Needle] 32 gauge x 5/32 needle See Rx Instructions .ROUTE TID Qty: 50 Rx Instructions: As directed (DME) FreeStyle Garrick 2 [place] Misc See Rx Instructions .ROUTE .MEDSUPPLY Qty: 1 0RF Rx Instructions: As directed (DME) FreeStyle Garrick 2 Sensor Kit See Rx Instructions .ROUTE .MEDSUPPLY Qty: 2 11RF Rx Instructions: As directed every 2 weeks aspirin 81 mg tablet,delayed release (DR/EC) 81 mg PO DAILY carvedilol [Coreg] 6.25 mg tablet 6.25 mg PO BID Qty: 60 5RF Rx Instructions: must administer with a meal/food Referrals: Tor Villela MD [Primary Care Provider] - Interventions: ED Discharge Assessment Last Done: 10/16/24 14:30 Discharge Date/Time: 10/16/24 14:34 Print Language: Jamaican
--- NOTE | 2024-10-16 11:57 | ECG_ITS ---
Test Reason : SOB Blood Pressure : / mmHG Vent. Rate : 087 BPM Atrial Rate : 087 BPM P-R Int : 032 ms QRS Dur : 134 ms QT Int : 366 ms P-R-T Axes : 088 093 -27 degrees QTc Int : 440 ms atrial-sensed ventricular-paced complexes Abnormal ECG When compared with ECG of 13-AUG-2023 14:55, Electronic ventricular pacemaker has replaced Sinus rhythm Vent. rate has increased BY 30 BPM Referred By: Caitlin Alexandra Electronically Signed By:JOZEF WORLEY
[2024-10-16 12:00] VITALS: BP 121/55; PULSE 95; RESP 28; TEMP 36.8; O2SAT 96
[2024-10-16 12:19] VITALS: PULSE 77; RESP 26; O2SAT 97
[2024-10-16] MEDS: Albuterol Sulfate 5 MG, Albuterol/Iprat 2.5/0.5MG 3 ML 3 ML INHALE (12:25)
[2024-10-16 12:26] LABS: MANUAL DIFF FLAG NO
[2024-10-16 12:37] LABS: Basophils Percent Auto 0.2 % (0-2); Eosinophils Absolute Auto 0.1 X10*3/uL (0.0-0.4); Eosinophils Percent Auto 1.1 % (0-4); Hematocrit 37.7 % (42.0-52.0); Hemoglobin 13.4 g/dl (14.0-18.0); Imm Gran Pct Auto 1.2 % (0.0-0.4); Lymphocytes Absolute Auto 1.7 X10*3/uL (1.2-4.9); Lymphocytes Percent Auto 20.5 % (20-40); Mean Corpuscular HGB Conc 35.5 g/dl (31.0-36.0); Mean Corpuscular Hemoglobin 28.5 pg (27.0-33.0); Mean Platelet Volume 9.8 fL (9.4-12.4); Monocytes Absolute Auto 0.6 X10*3/uL (0.1-1.2); Monocytes Percent Auto 7.4 % (2-11); Neutrophils Absolute Auto 5.7 x10*3/uL (2.0-8.3); Neutrophils Percent Auto 69.6 % (45-73); Platelet Count 230 X10*3/uL (160-400); Red Blood Count 4.71 X10*6/uL (4.60-5.80); Red Cell Distribution Width 12.7 % (11.0-16.0); White Blood Count 8.2 X10*3/uL (4.8-10.8)
[2024-10-16] MEDS: predniSONE 20 MG TABLET 60 MG PO (12:44)
[2024-10-16 12:45] LABS: Alanine Aminotransferase 23 U/L (0-40); Alkaline Phosphatase 73 U/L (39-117); Anion Gap 14 (12-20); Aspartate Amino Transferase 19 U/L (5-37); Bilirubin Direct 0.1 mg/dL (0.0-0.5); Bilirubin Total 0.3 mg/dL (0.0-1.0); Blood Urea Nitrogen 30 mg/dL (9-16); Calcium 8.8 mg/dL (8.4-10.2); Carbon Dioxide 20 mmol/L (22-29); Chloride 107 mmol/L (96-108); Creatinine Clr Calc Pharmacy 55.6; Estimated Glomerular Filt Rate 44; Glucose Random 339 mg/dL (60-115); Potassium 3.8 mmol/L (3.3-5.1); Sodium 137 mmol/L (135-145); Total Protein 7.1 g/dL (6.5-8.0)
[2024-10-16 12:51] LABS: Troponin-I High Sensitivity 5.1 ng/L (<3.5-35.0)
[2024-10-16 13:05] LABS: Influenza A PCR NEGATIVE (Negative); Influenza B PCR NEGATIVE (Negative); Resp Syncy Virus RNA Qual PCR NEGATIVE (Negative); SARS COV2 PCR INHOUSE NEGATIVE (Negative)
--- NOTE | 2024-10-16 13:07 | PC.NURSE ---
10 units double check confirmed with Rd MAX.
[2024-10-16] MEDS: Insulin Lispro 100 UNIT/ML 3 ML VIAL 10 UNIT SUBCUT (13:10)
[2024-10-16 13:15] VITALS: PULSE 104; RESP 24; O2SAT 95
[2024-10-16 13:16] LABS: Glucose, Whole Blood 340 mg/dL (60-115)
[2024-10-16] MEDS: Albuterol Sulfate 2.5 MG, Albuterol Sulfate (0.083%) 2.5 MG 5 MG INHALE (13:26)
[2024-10-16 14:00] VITALS: BP 124/52; PULSE 107; RESP 16; TEMP 36.6; O2SAT 97
[2024-10-16] MEDS: Bacitracin Oint 0.9 GM PACKET 1 APPL TOPICAL (14:28)
[2024-10-16] MEDS: Diphth,Pertus(ACell),Tet Adult 0.5 ML SYRINGE IM (14:29)
[2024-10-16 14:30] VITALS: BP 122/58; PULSE 103; RESP 16; TEMP 36.9; O2SAT 98
== END 2024-10-16 14:34 | disposition home or self-care (01) ==
PROVIDERS: Physician Assistant; Emergency Provider Emergency Medicine Emergency Medical Services; PCP Internal Medicine
DX: J45.901 Unspecified asthma with (acute) exacerbation (principal); J20.9 Acute bronchitis, unspecified; R06.02 Shortness of breath; S60.418A Abrasion of other finger, initial encounter; X58.XXXA Exposure to other specified factors, initial encounter; Y93.9 Activity, unspecified; Y92.9 Unspecified place or not applicable; Y99.9 Unspecified external cause status; E11.22 Type 2 diabetes mellitus with diabetic chronic kidney disease; I13.0 Hypertensive heart and chronic kidney disease with heart failure and stage 1 through stage 4 chronic kidney disease, or unspecified chronic kidney disease; N18.32 Chronic kidney disease, stage 3b; I50.20 Unspecified systolic (congestive) heart failure; E78.00 Pure hypercholesterolemia, unspecified; G47.33 Obstructive sleep apnea (adult) (pediatric); Z95.0 Presence of cardiac pacemaker; Z03.818 Encounter for observation for suspected exposure to other biological agents ruled out; Z79.84 Long term (current) use of oral hypoglycemic drugs; Z79.899 Other long term (current) drug therapy; Z79.85 Long-term (current) use of injectable non-insulin antidiabetic drugs; Z79.4 Long term (current) use of insulin; Z79.82 Long term (current) use of aspirin; Z23 Encounter for immunization
CPT/HCPCS: 0241U; 71046; 80048; 80076; 82947; 84484; 85025; 90471; 90715; 93005; 94640; 99284

== ENCOUNTER → 2024-10-16 11:57 | Outpatient (BNV) | payer OTHER, SELFPAY | PROVIDERS: Emergency Provider Emergency Medicine Emergency Medical Services; PCP Internal Medicine; Visit Provider Internal Medicine | DX: R94.31 Abnormal electrocardiogram [ECG] [EKG] (principal) | CPT/HCPCS: 93010 ==

== ENCOUNTER 2024-10-20 23:34 | Inpatient (IN) | payer OTHER, SELFPAY ==
--- NOTE | ~2024-10-20 | XR_ITS ---
CLINICAL HISTORY: SOB Chest Radiographs, 2 views Comparison: 10/16/24 Findings: No cardiomegaly. Left chest wall cardiac pacemaker/AICD. Normal mediastinal contours. No pneumothorax. No opacity. No pleural effusion. Normal upper abdomen. No acute fracture. Impression: No acute findings. This document has been electronically signed by: Kaelyn Mason MD on 10/23/2024 15:13:23
--- NOTE | ~2024-10-20 | XR_ITS ---
EXAMINATION: XR CHEST CLINICAL INFORMATION: dyspnea, wheezing, cough COMPARISON: October 16, 2024 TECHNIQUE: Frontal view of the chest was obtained. FINDINGS: The cardiomediastinal silhouette is stable. Pacer leads are again seen in place stable in position. There is no focal lung consolidation or pleural effusions. The bony structures and the soft tissues are unremarkable. XR/XR chest 1V IMPRESSION: No acute cardiopulmonary process. Electronically signed by: Isael Randolph MD 10/21/2024 12:37 AM [facility]
[2024-10-20 23:41] VITALS: BP 119/64; BP 125/71; PULSE 108; PULSE 70; RESP 10; TEMP 36.8; O2SAT 90; O2SAT 98
[2024-10-20 23:51] VITALS: PULSE 105; RESP 33; O2SAT 97
[2024-10-20] MEDS: Albuterol Sulfate 7.5 MG, Albuterol Sulfate (0.083%) 2.5 MG 10 MG INHALE (23:53)
[2024-10-21] VITALS (12 sets, daily range): BP systolic 113–143; BP diastolic 59–68; PULSE 93–109; RESP 17–24; TEMP 36.5–37; O2SAT 93–99
[2024-10-21 00:03] LABS: Basophils Percent Auto 0.5 % (0-2); Eosinophils Absolute Auto 0.2 X10*3/uL (0.0-0.4); Eosinophils Percent Auto 2.1 % (0-4); Hematocrit 37.2 % (42.0-52.0); Hemoglobin 12.9 g/dl (14.0-18.0); Imm Gran Pct Auto 1.3 % (0.0-0.4); Lymphocytes Absolute Auto 3.6 X10*3/uL (1.2-4.9); Lymphocytes Percent Auto 46.6 % (20-40); MANUAL DIFF FLAG NO; Mean Corpuscular HGB Conc 34.7 g/dl (31.0-36.0); Mean Corpuscular Hemoglobin 28.3 pg (27.0-33.0); Mean Corpuscular Volume 81.6 fL (80.0-98.0); Mean Platelet Volume 9.8 fL (9.4-12.4); Monocytes Absolute Auto 0.3 X10*3/uL (0.1-1.2); Monocytes Percent Auto 4.2 % (2-11); Neutrophils Absolute Auto 3.5 x10*3/uL (2.0-8.3); Neutrophils Percent Auto 45.3 % (45-73); Platelet Count 240 X10*3/uL (160-400); Red Blood Count 4.56 X10*6/uL (4.60-5.80); Red Cell Distribution Width 13.1 % (11.0-16.0); White Blood Count 7.7 X10*3/uL (4.8-10.8)
[2024-10-21 00:05] LABS: Venous Blood Gas Refer to POC result
[2024-10-21 00:06] LABS: VBG Base Excess -4.1 mmol/L; VBG HCO3 20 mmol/L (22-26); VBG pCO2 33 mmHg; VBG pH 7.38 (7.32-7.43); VBG pO2 219 mmHg
[2024-10-21] MEDS: Magnesium Sulfate/H2O 2 GM/50 ML PIGGYBACK IV (00:23)
[2024-10-21 00:30] LABS: Alanine Aminotransferase 32 U/L (0-40); Albumin Level 3.9 g/dL (3.5-5.0); Alkaline Phosphatase 97 U/L (39-117); Anion Gap 21 (12-20); Aspartate Amino Transferase 54 U/L (5-37); Bilirubin Total 0.2 mg/dL (0.0-1.0); Blood Urea Nitrogen 19 mg/dL (9-16); Calcium 8.8 mg/dL (8.4-10.2); Carbon Dioxide 17 mmol/L (22-29); Chloride 106 mmol/L (96-108); Creatinine Clr Calc Pharmacy 46.1; Estimated Glomerular Filt Rate 35; Glucose Random 440 mg/dL (60-115); Sodium 139 mmol/L (135-145); Total Protein 7.5 g/dL (6.5-8.0)
[2024-10-21 00:40] LABS: Influenza A PCR NEGATIVE (Negative); Influenza B PCR NEGATIVE (Negative); Resp Syncy Virus RNA Qual PCR NEGATIVE (Negative); SARS COV2 PCR INHOUSE NEGATIVE (Negative)
[2024-10-21 00:42] LABS: Glucose, Whole Blood 437 mg/dL (60-115)
[2024-10-21] MEDS: Insulin Lispro 100 UNIT/ML 3 ML VIAL 12 UNIT SUBCUT (00:43)
--- NOTE | 2024-10-21 00:57 | ED_ITS ---
HPI - SOB/Dyspnea General Chief Complaint: Dyspnea Stated Complaint: SOB hx of Asthma Time Seen by Provider: 10/20/24 23:43 Source: patient Mode of arrival: EMS Limitations: no limitations History of Present Illness ED Provider: HPI Narrative: Patient's history of asthma usually stable but last 2 weeks been very sick was seen here on 10/16 started on prednisone still not feeling good saturating 90% at room air on arrival. Patient does have a history of systolic CHF , CMP on ICD, HTN, HLD, insulin-dependent diabetes mellitus, mood disorder. Denies any chest pain no fever no chills cough is mostly dry patient received 2 DuoNeb treatment and IV Solu-Medrol by EMS Related Data Home Medications ?Medication ?Instructions ?Recorded ?Confirmed cholecalciferol (vitamin D3) 25 25 mcg PO QAM 08/16/20 07/02/24 mcg (1,000 unit) tablet insulin glargine 100 unit/mL 40 unit subcut BEDTIME 03/13/21 07/02/24 subcutaneous solution sertraline 100 mg tablet 200 mg PO DAILY 03/13/21 07/02/24 hydroxyzine pamoate 50 mg capsule 50 mg PO BEDTIME PRN Anxiety 06/26/21 07/02/24 mirtazapine 45 mg tablet 45 mg PO BEDTIME 06/26/21 07/02/24 omeprazole 40 mg capsule,delayed 40 mg PO DAILY 11/01/21 07/02/24 release pen needle, diabetic 32 gauge x #50 ea 11/01/21 07/02/24/32 (Pentips Pen Needle) aspirin 81 mg tablet,delayed 81 mg PO DAILY 10/16/22 07/02/24 release albuterol sulfate 2.5 mg/3 mL 2.5 mg inhalation TID PRN wheezing 08/13/23 07/02/24 (0.083 %) solution for nebulization dulaglutide 1.5 mg/0.5 mL 1.5 mg subcut TU 08/13/23 07/02/24 subcutaneous pen injector ([facility]) fenofibrate 54 mg tablet 54 mg PO QAM 08/13/23 07/02/24 insulin aspart U-100 100 unit/mL See Protocol subcut QIDACHS 08/13/23 07/02/24 (3 mL) subcutaneous pen omega-3 300 mg-dha 120 mg-epa 180 1 cap PO TID 08/13/23 07/02/24 mg-fish oil 1,000 mg capsule Previous Rx's ?Medication ?Instructions ?Recorded albuterol sulfate 90 mcg/actuation 2 inh inhalation Q4-6H PRN 08/01/20 breath activated powder inhaler shortness of breath or wheezing #1 ea lancets 33 gauge (TRUEplus Lancets) #200 ea 03/13/21 flash glucose scanning reader #1 ea 01/31/22 (FreeStyle Garrick 2 Cope) flash glucose sensor (FreeStyle #2 ea 01/31/22 Garrick 2 Sensor kit) metformin 500 mg tablet 500 mg PO BID #60 tabs 02/05/22 empagliflozin 25 mg tablet 25 mg PO QAM #30 tabs 04/30/22 (Jardiance) blood sugar diagnostic (FreeStyle #150 ea 05/02/22 Lite Strips) acetaminophen 500 mg tablet 1,000 mg (2 x 500 mg) PO QID PRN 05/16/22 (Tylenol Extra Strength) fever or pain #14 tabs furosemide 80 mg tablet 80 mg PO QAM #90 tabs 09/26/22 sacubitril 24 mg-valsartan 26 mg 1 tab PO BID #30 tabs 08/15/23 tablet (Entresto) spironolactone 25 mg tablet 12.5 mg PO DAILY #30 tabs 08/15/23 digoxin 250 mcg (0.25 mg) tablet 250 mcg PO QAM #90 tabs 10/15/23 carvedilol 6.25 mg tablet (Coreg) 6.25 mg PO BID #60 tabs 06/14/24 ivabradine 7.5 mg tablet (Corlanor) 7.5 mg PO BID #180 tabs 08/23/24 albuterol sulfate 2.5 mg/0.5 mL 5 mg inhalation Q6H PRN shortness 10/16/24 solution for nebulization of breath or wheezing #30 ea azithromycin 250 mg tablet See Rx Instructions PO .COMPLEX #6 10/16/24 (Zithromax Z-Chepe) tabs nebulizers (AeroEclipse II #1 ea 10/16/24 Nebulizer) prednisone 20 mg tablet 40 mg (2 x 20 mg) PO DAILY #10 tabs 10/16/24 Allergies Allergy/AdvReac Type Severity Reaction Status Date / Time No Known Allergies Allergy Verified 10/20/24 23:42 [No Known Allergies*] Review of Systems 2 Review of Systems: Yes all other systems are reviewed and are negative [facility] Past Medical History Medical History ICD (implantable cardioverter-defibrillator) lead failure Biventricular ICD (implantable cardioverter-defibrillator) in place Nonischemic cardiomyopathy GERD (gastroesophageal reflux disease) Asthma NANO (obstructive sleep apnea) Obesity due to excess calories HLD (hyperlipidemia) Type 2 diabetes mellitus with chronic kidney disease Heart failure with reduced ejection fraction Implantable cardioverter-defibrillator lead failure High cholesterol Diabetes HTN (hypertension) Pacemaker Surgical History S/P ICD (internal cardiac defibrillator) procedure History of tonsillectomy Hx of cardiac cath Hx of transesophageal echocardiography (DAWN) for monitoring History of permanent cardiac pacemaker placement (~2008) History of circumcision Family History Family History Father HTN (hypertension) Diabetes CVD (cardiovascular disease) Hypercholesterolemia Mother Hypercholesterolemia HTN (hypertension) Diabetes Social History Social History Household Members: Significant Other Household Members Other:: SO:Thu Alcohol intake: current Alcohol intake frequency: 3 or more drinks per day Patient Tobacco Use Status: Never used Tobacco Tobacco use type: Cigarette Smoked in Last 30 Days: Yes Use of substances other than those prescribed or required for medical reasons: No Advance Directives: No Advance Directives Information Provided: Yes service: No Physical Exam 2 Vital Signs: Vital Signs: Last Vital Signs Temp 98.3 F 10/20/24 23:41 Pulse 98 10/21/24 04:47 Resp 18 10/21/24 04:47 BP 113/59 L 10/21/24 02:55 Pulse Ox 96 10/21/24 02:55 O2 Del Method Nasal Cannula 10/21/24 02:55 O2 Flow Rate 2 10/21/24 02:55 Oxygen Flow Rate 6 10/20/24 23:41 BMI result Body Mass Index 30.0 Appearance: Alert. Oriented X3. No acute distress. Eyes: No pallor or icterus ENT: Pharynx normal. Oral Mucosa moist Neck: Normal inspection. Neck supple. CVS: Normal heart rate and rhythm. Pulses normal. Respiratory: No respiratory distress. Equal air entry bilateral, bilateral wheezing occasional rales Abdomen: Soft and nontender. Bowel sounds are present, no mass palpable, no CVA tenderness Skin: Skin warm and dry. Normal skin color. Normal skin turgor. Extremities: No lower extremity edema. No calf tenderness Neuro: Oriented X 3. No motor deficit. No sensory deficit Medications Administered Generic Name Dose Route Start Last Admin Trade Name Freq PRN Reason Stop Dose Admin Albuterol Sulfate 2.5 mg 10/21/24 03:54 10/21/24 04:45 Albuterol Sulfate (0.083%) 2.5 Mg/3 Ml Vial.Neb INHALE 2.5 mg Q4H PRN Administration Shortness of Breath/Wheezing Insulin Glargine 40 unit 10/21/24 04:00 10/21/24 05:06 Insulin Glargine,Hum.Rec.Anlog 100 Unit/Ml 10 Ml Vial SUBCUT 40 unit BEDTIME COUNT INCLUDES THE [facility] Administration Discontinued Medications Generic Name Dose Route Start Last Admin Trade Name Freq PRN Reason Stop Dose Admin Albuterol Sulfate 7.5 mg/ 10 mg 10/20/24 23:46 10/20/24 23:53 Albuterol Sulfate 2.5 mg INHALE 10/20/24 23:47 10 mg ONCE ONE Administration Magnesium Sulfate 2 gm in 50 mls @ 150 mls/hr 10/21/24 00:08 10/21/24 00:44 Magnesium Sulfate/H2o IV 10/21/24 00:27 Infused ONCE ONE Infusion Insulin Human Lispro 12 unit 10/21/24 00:31 10/21/24 00:43 Insulin Lispro 100 Unit/Ml 3 Ml Vial SUBCUT 10/21/24 00:32 12 unit ONCE ONE Administration Insulin Human Lispro 0 unit 10/21/24 04:00 10/21/24 05:27 Insulin Lispro 100 Unit/Ml 3 Ml Vial SUBCUT Not Given Q6H COUNT INCLUDES THE [facility] Protocol Medical Decision Making Medical Decision Making [facility] Narrative: Patient with asthma with exacerbation with resting hypoxia chest x-ray negative for infiltrate labs are stable clinically not in CHF will admit patient for worsening of the asthma for IV steroid and nebulizing treatment Differential Diagnosis Differential Diagnoses: The differential diagnosis associated with the presentation includes Asthma exacerbation/coronary artery disease/CHF Admission/Observation Consideration of admission/observation: Escalation of care including admission/observation considered Consult Healthcare Provider Management of the patient was discussed with: Hospitalist Lab Data MDM Lab Attestation statement: I reviewed the patient's lab results. 10/21/24 04:42 10/21/24 04:42 Labs: Lab Results 10/20/24 10/21/24 10/21/24 Range/Units 23:54 00:01 00:37 WBC 7.7 (4.8-10.8) X10*3/uL RBC 4.56 L (4.60-5.80) X10*6/uL Hgb 12.9 L (14.0-18.0) g/dl Hct 37.2 L (42.0-52.0) % MCV 81.6 (80.0-98.0) fL MCH 28.3 (27.0-33.0) pg MCHC 34.7 (31.0-36.0) g/dl RDW 13.1 (11.0-16.0) % Plt Count 240 (160-400) X10*3/uL MPV 9.8 (9.4-12.4) fL Immature Gran % (Auto) 1.3 H (0.0-0.4) % Neut % (Auto) 45.3 (45-73) % Lymph % (Auto) 46.6 H (20-40) % [place] % (Auto) 4.2 (2-11) % Eos % (Auto) 2.1 (0-4) % Baso % (Auto) 0.5 (0-2) % Lymph # (Auto) 3.6 (1.2-4.9) X10*3/uL [place] # (Auto) 0.3 (0.1-1.2) X10*3/uL Eos # (Auto) 0.2 (0.0-0.4) X10*3/uL Baso # (Auto) 0.0 (0.0-0.2) X10*3/uL Abs Immat Gran (auto) 0.10 H (0.00-0.03) X10*3/uL Absolute Neuts (auto) 3.5 (2.0-8.3) x10*3/uL Absolute Nucleated RBC 0.000 (0.0-0.012) X10*3/uL Nucleated RBC % (auto) 0.0 (0.0-0.2) /100WBC VBG pH 7.38 (7.32-7.43) VBG pCO2 33 mmHg VBG pO2 219 mmHg VBG HCO3 20 L (22-26) mmol/L VBG O2 Saturation 100.0 % VBG Base Excess -4.1 mmol/L Sodium 139 (135-145) mmol/L Potassium 5.0 D (3.3-5.1) mmol/L Chloride 106 (96-108) mmol/L Carbon Dioxide 17 L (22-29) mmol/L Anion Gap 21 H (12-20) BUN 19 H (9-16) mg/dL Creatinine 2.01 H (0.5-1.4) mg/dL Estim Creat Clear Calc 46.1 Estimated GFR 35 POC Glucose 437 H* (60-115) mg/dL Random Glucose 440 H* (60-115) mg/dL Calcium 8.8 (8.4-10.2) mg/dL Total Bilirubin 0.2 (0.0-1.0) mg/dL AST 54 H (5-37) U/L ALT 32 (0-40) U/L Alkaline Phosphatase 97 (39-117) U/L Total Protein 7.5 (6.5-8.0) g/dL Albumin 3.9 (3.5-5.0) g/dL Influenza Type A (PCR) NEGATIVE (Negative) Influenza Type B (PCR) NEGATIVE (Negative) RSV RNA Qual (PCR) NEGATIVE (Negative) SARS-CoV-2 RNA (RT-PCR) NEGATIVE (Negative) Independent Interpretation I performed an independent interpretation of an: Plain X-Ray Interpretation: NAD Radiology Impression Discussion of test interpretation with radiology: I discussed test interpretation with the radiologist and I have reviewed the radiologist's reading. Critical Care Time Critical Care Time Critical Care Time: Yes Total Critical Care Time: 55 Attestation: The patient was critically ill with a high probability of imminent or life threatening deterioration. I spent greater than 60??minutes of discontinuous time evaluating the patient,delivering critical care at the bedside, discussing and evaluating pertinent data with consultants. Critical care time does not include time spent performing separately billable procedures or teaching. Total time spent performing critical care was 55???minutes. Discharge Plan Discharge Clinical Impression: Asthma exacerbation, Nonischemic cardiomyopathy, Hypoxic respiratory failure Patient Disposition: Admitted As Inpatient
--- NOTE | 2024-10-21 04:01 | PM.IMHP ---
History of Present Illness Date of Service: 10/21/24 Chief Complaint: Dyspnea, wheezing A 54-year-old male with PMH of systolic CHF , CMP on ICD, HTN, HLD, insulin-dependent diabetes mellitus, mood disorder who presents to the emergency department for evaluation of worsening dyspnea and wheezing for few days. The patient states that he has been complaining of difficulties breathing and increasing cough and shortness of breath for the last 2 week inspite of using his home inhaler and nebulizer. No chest pain, palpitations, nausea, vomiting, diarrhea or urinary symptoms. In ED CXR did not show any infiltrates. BMP showed worsening CKD 3 and hyperglycemia. Started on Steroids, nebulizer treatment and admitted for further work up and management. Review of Systems Review of Systems: No fever, chills or weakness No chest pain, palpitation reporting shortness of breath and coughing No abdominal pain, nausea or vomiting No urinary symptoms No any rash or wounds PMFSH Medical History ICD (implantable cardioverter-defibrillator) lead failure Biventricular ICD (implantable cardioverter-defibrillator) in place Nonischemic cardiomyopathy GERD (gastroesophageal reflux disease) Asthma NANO (obstructive sleep apnea) Obesity due to excess calories HLD (hyperlipidemia) Type 2 diabetes mellitus with chronic kidney disease Heart failure with reduced ejection fraction Implantable cardioverter-defibrillator lead failure High cholesterol Diabetes HTN (hypertension) Pacemaker Family History Father HTN (hypertension) Diabetes CVD (cardiovascular disease) Hypercholesterolemia Mother Hypercholesterolemia HTN (hypertension) Diabetes Surgical History S/P ICD (internal cardiac defibrillator) procedure History of tonsillectomy Hx of cardiac cath Hx of transesophageal echocardiography (DAWN) for monitoring History of permanent cardiac pacemaker placement (~2008) History of circumcision Social History Household Members: Significant Other Household Members Other:: SO:Thu Alcohol intake: current Alcohol intake frequency: 3 or more drinks per day Patient Tobacco Use Status: Never used Tobacco Tobacco use type: Cigarette Smoked in Last 30 Days: Yes Use of substances other than those prescribed or required for medical reasons: No Advance Directives: No Advance Directives Information Provided: Yes service: No Meds Allergies Allergy/AdvReac Type Severity Reaction Status Date / Time No Known Allergies Allergy Verified 10/20/24 23:42 [No Known Allergies*] Active Medications: Current Medications Acetaminophen (Acetaminophen 325 Mg Tablet) 650 mg PO Q6H PRN PRN Reason: Pain, Mild 1-3,fever,headache Albuterol Sulfate (Albuterol Sulfate (0.083%) 2.5 Mg/3 Ml Vial.Neb) 2.5 mg INHALE Q4H PRN PRN Reason: Shortness of Breath/Wheezing Albuterol/Ipratropium (Albuterol/Iprat 2.5/0.5mg 3 Ml Ampul.Neb) 3 ml INHALE Q4H PRN PRN Reason: Shortness of Breath/Wheezing Benzonatate (Benzonatate 100 Mg Capsule) 100 mg PO TID PRN PRN Reason: Cough Calcium Carbonate (Calcium Carbonate 750 Mg Tab.Chew) 750 mg PO Q4H PRN PRN Reason: Heartburn Heparin Sodium (Porcine) (Heparin Sodium,Porcine 5,000 Unit/Ml Vial) 5,000 unit SUBCUT Q12H RITA Insulin Glargine (Insulin Glargine,Hum.Rec.Anlog 100 Unit/Ml 10 Ml Vial) 40 unit SUBCUT BEDTIME RITA Insulin Human Lispro (Insulin Lispro 100 Unit/Ml 3 Ml Vial) 0 unit SUBCUT Q6H RITA; Protocol Magnesium Hydroxide (Milk Of Magnesia 30 Ml Oral.Susp) 30 ml PO DAILY PRN PRN Reason: Constipation Melatonin (Melatonin 3 Mg Tablet) 6 mg PO BEDTIME PRN PRN Reason: Insomnia Methylprednisolone Sodium Succinate (Methylprednisolone Sod Succ 40 Mg/Ml Vial) 40 mg IVPUSH Q12H RITA Ondansetron HCl (Ondansetron Hcl 4 Mg/2 Ml Vial) 4 mg IVPUSH Q8H PRN PRN Reason: Nausea and Vomiting Sodium Chloride (0.9 % Sodium Chloride Flush 3 Ml Syringe) 3 ml IVFLUSH QSHIFT [facility] Home Medications ?Medication ?Instructions ?Recorded ?Confirmed ?Last Taken ?Type cholecalciferol (vitamin D3) 25 25 mcg PO QAM 08/16/20 07/02/24 08/13/23 History mcg (1,000 unit) tablet insulin glargine 100 unit/mL 40 unit subcut BEDTIME 03/13/21 07/02/24 Unknown History subcutaneous solution sertraline 100 mg tablet 200 mg PO DAILY 03/13/21 07/02/24 08/13/23 History hydroxyzine pamoate 50 mg capsule 50 mg PO BEDTIME PRN Anxiety 06/26/21 07/02/24 Unknown History mirtazapine 45 mg tablet 45 mg PO BEDTIME 06/26/21 07/02/24 Unknown History omeprazole 40 mg capsule,delayed 40 mg PO DAILY 11/01/21 07/02/24 08/13/23 History release pen needle, diabetic 32 gauge x #50 ea 11/01/21 07/02/24 Unknown History (Pentips Pen Needle) aspirin 81 mg tablet,delayed 81 mg PO DAILY 10/16/22 07/02/24 08/13/23 History release albuterol sulfate 2.5 mg/3 mL 2.5 mg inhalation TID PRN wheezing 08/13/23 07/02/24 Unknown History (0.083 %) solution for nebulization dulaglutide 1.5 mg/0.5 mL 1.5 mg subcut TU 08/13/23 07/02/24 08/12/23 History subcutaneous pen injector (Trulicity) fenofibrate 54 mg tablet 54 mg PO QAM 08/13/23 07/02/24 08/13/23 History insulin aspart U-100 100 unit/mL See Protocol subcut QIDACHS 08/13/23 07/02/24 08/13/23 History (3 mL) subcutaneous pen omega-3 300 mg-dha 120 mg-epa 180 1 cap PO TID 08/13/23 07/02/24 08/13/23 History mg-fish oil 1,000 mg capsule Physical Exam Vital Signs and Narrative: Vital Signs: Last Vital Signs Temp 98.3 F 10/20/24 23:41 Pulse 102 H 10/21/24 02:55 Resp 18 10/21/24 02:55 BP 113/59 L 10/21/24 02:55 Pulse Ox 96 10/21/24 02:55 O2 Del Method Nasal Cannula 10/21/24 02:55 O2 Flow Rate 2 10/21/24 02:55 Oxygen Flow Rate 6 10/20/24 23:41 BMI result Body Mass Index 30.0 Const: Other: Constitutional : Awake, interactive, in respiratory distress Neck : Normal inspection, Supple Cardiovascular : RRR, no JVP, no lower extremity edema Respiratory : decreased bilateral air entry, no crackles, bilateral expiratory wheezes Gastrointestinal: soft, lax, Normal bowel sounds, Non tender Skin : Warm, Dry Neurological : Alert & oriented x3, No focal deficit Results Labs 10/20/24 23:54 10/20/24 23:54 Labs: Laboratory Results - last 24 hr 10/20/24 10/21/24 10/21/24 23:54 00:01 00:37 MCV 81.6 MCH 28.3 MCHC 34.7 RDW 13.1 Plt Count 240 MPV 9.8 Immature Gran % (Auto) 1.3 H Neut % (Auto) 45.3 Lymph % (Auto) 46.6 H [place] % (Auto) 4.2 Eos % (Auto) 2.1 Baso % (Auto) 0.5 Lymph # (Auto) 3.6 [place] # (Auto) 0.3 Eos # (Auto) 0.2 Baso # (Auto) 0.0 Abs Immat Gran (auto) 0.10 H Absolute Neuts (auto) 3.5 Absolute Nucleated RBC 0.000 Nucleated RBC % (auto) 0.0 VBG pH 7.38 VBG pCO2 33 VBG pO2 219 VBG HCO3 20 L VBG O2 Saturation 100.0 VBG Base Excess -4.1 Anion Gap 21 H Estim Creat Clear Calc 46.1 Estimated GFR 35 POC Glucose 437 H* Random Glucose 440 H* Calcium 8.8 Total Bilirubin 0.2 AST 54 H ALT 32 Alkaline Phosphatase 97 Total Protein 7.5 Albumin 3.9 Influenza Type A (PCR) NEGATIVE Influenza Type B (PCR) NEGATIVE RSV RNA Qual (PCR) NEGATIVE SARS-CoV-2 RNA (RT-PCR) NEGATIVE Imaging Radiologist's Impressions: Impressions Chest X-Ray 10/20/24 23:51 IMPRESSION: No acute cardiopulmonary process. Electronically signed by: Isael Randolph MD 10/21/2024 12:37 AM [facility] Assessment and Plan (1) Asthma exacerbation: Status: Acute (2) Acute kidney injury superimposed on stage 3b chronic kidney disease: Status: Acute (3) Hyperglycemia due to type 2 diabetes mellitus: Status: Acute Plan A 54-year-old male with PMH of systolic CHF , CMP on ICD, HTN, HLD, insulin-dependent diabetes mellitus, mood disorder who presents to the emergency department for evaluation of worsening dyspnea and wheezing for few days. Dyspnea 2/2 Acute Asthma exacerbation IV steroids nebulizers ATC and PRN Wean O2 down as tolerated JULY on CKD Hold nephrotoxics for now monitor BMP and I\O Hyperglycemia 2/2 diabetes type 2 Start Lantus 40 units SSI w POC diabetic diet Congestive heart failure with reduced ejection fraction BNP pending, CXR not showing fluid overload Continue PO lasix for now Mood disorder Continue home mood stabilizers Pending med rec. DVT prophylaxis Heparin Full code The patient will need 2 overnight hospital stay for treatment of acute asthma exacerbation, monitoring worsening kidney function and elevated blood sugar which can not be done at any less acute care. Quality Stroke Does the patient have a stroke diagnosis?: No VTE Prior VTE?: No VTE Risk Level:: Medical - moderate - high VTE Device Contraindication: Treatment Not Indicated VTE Drug Contraindication: N/A - Med Ordered
[2024-10-21 04:41] LABS: Glucose, Whole Blood 319 mg/dL (60-115)
[2024-10-21] MEDS: Albuterol Sulfate (0.083%) 2.5 MG/3 ML VIAL.NEB INHALE (04:45)
[2024-10-21 04:56] LABS: Hematocrit 37.6 % (42.0-52.0); Hemoglobin 12.7 g/dl (14.0-18.0); Mean Corpuscular HGB Conc 33.8 g/dl (31.0-36.0); Mean Corpuscular Hemoglobin 28.2 pg (27.0-33.0); Mean Corpuscular Volume 83.6 fL (80.0-98.0); Platelet Count 211 X10*3/uL (160-400); White Blood Count 5.3 X10*3/uL (4.8-10.8)
[2024-10-21] MEDS: Insulin Glargine,Hum.rec.anlog 100 UNIT/ML 10 ML VIAL 40 UNIT SUBCUT ×2 (05:06→20:59)
[2024-10-21 05:13] LABS: Anion Gap 20 (12-20); Blood Urea Nitrogen 19 mg/dL (9-16); Calcium 8.9 mg/dL (8.4-10.2); Carbon Dioxide 16 mmol/L (22-29); Chloride 106 mmol/L (96-108); Creatinine Clr Calc Pharmacy 55.2; Estimated Glomerular Filt Rate 43; Glucose Random 347 mg/dL (60-115); Potassium 4.1 mmol/L (3.3-5.1); Sodium 138 mmol/L (135-145)
--- NOTE | 2024-10-21 06:41 | PC.NURSE ---
Patient is alert and oriented x4. Patient denies any pain, he continues to complaint of intermittent, productive cough and dyspnea with minimal exertion. O2 applied at 2 LPM NC. Patient has been maintaining O2 Sat at 98% on supplemental O2. Patient independent with ADL and ambulation, however he has been using urinal in bed to prevent episodes of dyspnea.
[2024-10-21 07:25] LABS: Glucose, Whole Blood 329 mg/dL (60-115)
[2024-10-21] MEDS: Insulin Lispro 100 UNIT/ML 3 ML VIAL SUBCUT ×2 (07:29→11:30)
[2024-10-21] MEDS: 0.9 % Sodium Chloride Flush 3 ML SYRINGE IVFLUSH ×3 (07:30→20:14)
[2024-10-21] MEDS: Albuterol/Iprat 2.5/0.5MG 3 ML AMPUL.NEB INHALE ×3 (07:30→15:29)
[2024-10-21] MEDS: Heparin Sodium,Porcine 5,000 UNIT/ML VIAL 5000 UNIT SUBCUT ×2 (07:32→20:14)
--- NOTE | 2024-10-21 08:27 | PHA.MEDREC ---
Addendum entered by Wagner Amin [facility] 10/21/24 08:57: Pt started Zpack on 10/18, only took 2 days, has 3 days remaining. Claims show Lantus 46 units daily, but pt states he takes 40 units daily. Addendum entered by Judy Lainez 10/21/24 08:49: Patient stated he stopped the Prednisone regimen 2 days ago due to feeling like it wasn't giving him any relief. Addendum entered by Wagner Amin [facility] 10/21/24 08:43: Reviewed by [facility]. Pharmacy claims show pt has not filled Trulicity recently, and HAS filled Ozempic recently. Waiting for to confirm dose and day of the week, and re-confirm pt is no longer on Trulicity. Claims show Ozempic 0.5mg once weekly, last filled last August. Original Note: Pharmacy Consult ? Medication Reconciliation Pharmacy has completed the medication reconciliation. 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 Patient was able to confirm his medications. Patient was able to confirm his Novolog sliding scale injection and confirmed he is injection it three times a day before meals. He confirmed the Lantus injection and confirmed he is injecting 40 units at bedtime. He states he is not taking any of the Albuterol [employer]ization [employer] at home right now and did not like how it made him feel, he confirmed he is still using the Albuterol Inhaler 2 puffs as needed. He states he is still taking the Carvedilol 6.25mg tablets twice daily. I asked about the patients Ozempic and he confirmed he takes it on Friday and when I asked about the dose and if he takes 0.5mg a week he stated I believe 1.5mg I asked if he was talking about the Trulicity but was not sure and called his to confirm. The stated she believes its 0.25mg once a week on Tuesdays and when I asked about it being 0.5mg once a week and asked about the Trulicity she was confused and stated she would look for her husbands list of medications and send it to him. I confirmed the med rec of the medications the patient confirmed with me and kept the Ozempic and Trulicity unconfirmed until I can correctly confirm those.
[2024-10-21 09:10] LABS: Beta-Hydroxybutyrate 0.83 mmol/L (0.02-0.27)
[2024-10-21] MEDS: Furosemide 40 MG TABLET 80 MG PO ×2 (09:19→09:25)
[2024-10-21] MEDS: Insulin Glargine,Hum.rec.anlog 100 UNIT/ML 10 ML VIAL 20 UNIT SUBCUT (09:20)
[2024-10-21] MEDS: methylPREDNISolone Sod Succ 40 MG/ML VIAL IVPUSH ×2 (09:25→20:14)
[2024-10-21] MEDS: guaiFENesin DM 600/30 1 TAB TAB.ER.12H PO ×2 (09:25→20:14)
[2024-10-21] MEDS: Lactated Ringers 1,000 ML 999 ML IV (09:28)
[2024-10-21] MEDS: Sacubitril/Valsartan 24/26 1 TAB TABLET PO ×2 (09:30→20:14)
[2024-10-21 11:12] LABS: Glucose, Whole Blood 388 mg/dL (60-115)
--- NOTE | 2024-10-21 11:28 | PC.NURSE ---
BS 388 ,Dr. Avery made aware
[2024-10-21] MEDS: Metoprolol Succinate ER 12.5 MG HALFTAB.ER.24H PO (11:32)
[2024-10-21] MEDS: carvediloL 6.25 MG TABLET PO ×2 (11:32→20:14)
[2024-10-21 13:25] LABS: Alanine Aminotransferase 29 U/L (0-40); Albumin Level 4.2 g/dL (3.5-5.0); Alkaline Phosphatase 86 U/L (39-117); Anion Gap 17 (12-20); Aspartate Amino Transferase 21 U/L (5-37); Bilirubin Total 0.3 mg/dL (0.0-1.0); Blood Urea Nitrogen 24 mg/dL (9-16); Calcium 9.5 mg/dL (8.4-10.2); Carbon Dioxide 24 mmol/L (22-29); Chloride 100 mmol/L (96-108); Estimated Glomerular Filt Rate 41; Potassium 4.9 mmol/L (3.3-5.1); Sodium 136 mmol/L (135-145); Total Protein 7.3 g/dL (6.5-8.0)
[2024-10-21 13:28] LABS: Glucose Random 462 mg/dL (60-115)
--- NOTE | 2024-10-21 13:53 | PM.EVENT ---
Event Note Date of Service: 10/21/24 Event Note: Chart reviewed/patient examined. Agree with exam as outlined. Review of labs this a.m. demonstrates a bicarb of 60 and a sugar of greater than 350. Normal saline DC in favor of a 500 cc lactated Ringer's bolus. 20 units of Lantus was given as well this a.m.. Repeat labs at noon time showed gap closed sugars remain elevated likely secondary steroids. We will adjust long-acting insulin based on response Time Spent With Patient Time: Total time managing care of this patient today ____ minutes.
[2024-10-21] MEDS: Insulin Regular, Human 100 UNIT/ML 10 ML VIAL 10 UNIT IVPUSH (15:05)
[2024-10-21 16:15] LABS: Glucose, Whole Blood 195 mg/dL (60-115)
[2024-10-21] MEDS: Insulin Regular, Human 100 UNIT/ML 10 ML VIAL SUBCUT ×2 (16:28→20:59)
[2024-10-21] MEDS: Mirtazapine 15 MG TABLET 45 MG PO (20:14)
[2024-10-21] MEDS: Benzonatate 100 MG CAPSULE PO (20:14)
[2024-10-21] MEDS: metFORMIN HCl 500 MG TABLET PO (20:14)
[2024-10-21 20:37] LABS: Glucose, Whole Blood 396 mg/dL (60-115)
[2024-10-21 20:44] LABS: B Type Natriuretic Peptide 32 pg/mL (<100)
--- NOTE | 2024-10-21 21:52 | PC.NURSE ---
Pt's blood sugar was 396. Pt received 40 units of Lantus and [address] Paulina dean.
[2024-10-22 03:25] VITALS: BP 113/70; PULSE 83; RESP 17; TEMP 36.3; O2SAT 94
[2024-10-22] MEDS: Benzonatate 100 MG CAPSULE PO ×2 (05:49→13:20)
[2024-10-22] MEDS: Omeprazole 40 MG CAPSULE.DR PO (05:52)
[2024-10-22 06:22] LABS: MANUAL DIFF FLAG NO
[2024-10-22 06:41] LABS: Alanine Aminotransferase 24 U/L (0-40); Alkaline Phosphatase 75 U/L (39-117); Anion Gap 16 (12-20); Aspartate Amino Transferase 20 U/L (5-37); Bilirubin Total 0.4 mg/dL (0.0-1.0); Blood Urea Nitrogen 29 mg/dL (9-16); Calcium 9.2 mg/dL (8.4-10.2); Carbon Dioxide 23 mmol/L (22-29); Chloride 102 mmol/L (96-108); Creatinine Clr Calc Pharmacy 65.8; Estimated Glomerular Filt Rate 53; Glucose Fasting 344 mg/dL (60-99); Potassium 4.6 mmol/L (3.3-5.1); Sodium 136 mmol/L (135-145); Total Protein 6.9 g/dL (6.5-8.0)
[2024-10-22 07:07] LABS: Basophils Percent Auto 0.1 % (0-2); Hematocrit 41.4 % (42.0-52.0); Imm Gran Abs Auto 0.09 X10*3/uL (0.00-0.03); Imm Gran Pct Auto 0.9 % (0.0-0.4); Lymphocytes Absolute Auto 0.8 X10*3/uL (1.2-4.9); Lymphocytes Percent Auto 8.5 % (20-40); Mean Corpuscular HGB Conc 33.8 g/dl (31.0-36.0); Mean Corpuscular Hemoglobin 27.9 pg (27.0-33.0); Mean Corpuscular Volume 82.5 fL (80.0-98.0); Mean Platelet Volume 10.3 fL (9.4-12.4); Monocytes Absolute Auto 0.2 X10*3/uL (0.1-1.2); Monocytes Percent Auto 2.3 % (2-11); Neutrophils Absolute Auto 8.4 x10*3/uL (2.0-8.3); Neutrophils Percent Auto 88.2 % (45-73); Platelet Count 245 X10*3/uL (160-400); Red Blood Count 5.02 X10*6/uL (4.60-5.80); Red Cell Distribution Width 13.2 % (11.0-16.0); White Blood Count 9.6 X10*3/uL (4.8-10.8)
[2024-10-22 07:13] VITALS: BP 128/67; PULSE 78; RESP 16; TEMP 36.3; O2SAT 96
[2024-10-22 07:22] LABS: Glucose, Whole Blood 349 mg/dL (60-115)
[2024-10-22] MEDS: Heparin Sodium,Porcine 5,000 UNIT/ML VIAL 5000 UNIT SUBCUT ×2 (08:20→21:00)
[2024-10-22] MEDS: methylPREDNISolone Sod Succ 40 MG/ML VIAL IVPUSH ×2 (08:20→21:28)
[2024-10-22] MEDS: Digoxin 0.25 MG TABLET PO (08:21)
[2024-10-22] MEDS: Sertraline HCL 100 MG TABLET 200 MG PO (08:21)
[2024-10-22] MEDS: 0.9 % Sodium Chloride Flush 3 ML SYRINGE IVFLUSH ×3 (08:21→21:05)
[2024-10-22] MEDS: guaiFENesin DM 600/30 1 TAB TAB.ER.12H PO ×2 (08:21→21:00)
[2024-10-22] MEDS: Insulin Glargine,Hum.rec.anlog 100 UNIT/ML 10 ML VIAL 30 UNIT SUBCUT (08:21)
[2024-10-22] MEDS: Furosemide 40 MG TABLET 80 MG PO (08:21)
[2024-10-22] MEDS: Insulin Regular, Human 100 UNIT/ML 10 ML VIAL SUBCUT ×4 (08:21→21:34)
[2024-10-22] MEDS: carvediloL 6.25 MG TABLET PO ×2 (08:21→21:01)
[2024-10-22] MEDS: Spironolactone 25 MG TABLET 12.5 MG PO (08:22)
[2024-10-22] MEDS: Sacubitril/Valsartan 24/26 1 TAB TABLET PO ×2 (08:22→21:01)
[2024-10-22] MEDS: Aspirin Enteric Coated 81 MG TABLET.DR PO (08:22)
[2024-10-22] MEDS: Metoprolol Succinate ER 12.5 MG HALFTAB.ER.24H PO (08:22)
[2024-10-22] MEDS: metFORMIN HCl 500 MG TABLET PO (08:22)
[2024-10-22 11:18] LABS: Glucose, Whole Blood 346 mg/dL (60-115)
--- NOTE | 2024-10-22 12:46 | HO.PM.IMPN ---
Subjective Subjective Date of Service: 10/22/24 Interval History: Continues to improve slowly. Sugars more control with regular insulin sliding scale Review of Systems Denies chest pain Admits shortness of breath with minimal movement Denies nausea vomiting diarrhea Denies fever chills Physical Exam Vital Signs: Vital Signs: Last Vital Signs Temp 97.3 F 10/22/24 07:13 Pulse 78 10/22/24 07:13 Resp 16 10/22/24 07:13 BP 128/67 10/22/24 07:13 Pulse Ox 96 10/22/24 07:13 O2 Del Method Room Air 10/22/24 07:13 O2 Flow Rate 6 10/21/24 07:33 Oxygen Flow Rate 6 10/20/24 23:41 BMI result Body Mass Index 30.0 Const: Other: Awake alert oriented x3 Resp: Other: Diminished at bases with improved aeration. Scattered coarse rhonchi with diffuse expiratory wheezes throughout lower lobes Cardio: Other: No S4; positive S1-S2; no S3 murmurs rubs or gallops GI: Other: Soft nontender nondistended normoactive bowel sounds Extrem: Other: No edema Objective Data Active Medications Acetaminophen (Acetaminophen 325 Mg Tablet) 650 mg PO Q6H PRN PRN Reason: Pain, Mild 1-3,fever,headache Albuterol Sulfate (Albuterol Sulfate (0.083%) 2.5 Mg/3 Ml Vial.Neb) 2.5 mg INHALE Q4H PRN PRN Reason: Shortness of Breath/Wheezing Last Admin: 10/21/24 04:45 Dose: 2.5 mg Documented By: EVELYNE Albuterol/Ipratropium (Albuterol/Iprat 2.5/0.5mg 3 Ml Ampul.Neb) 3 ml INHALE Q4H PRN PRN Reason: Shortness of Breath/Wheezing Last Admin: 10/21/24 15:29 Dose: 3 ml Documented By: KONSTANTIN Aspirin (Aspirin Enteric Coated 81 Mg Tablet.) 81 mg PO DAILY RITA Last Admin: 10/22/24 08:22 Dose: 81 mg Documented By: LUIS Benzonatate (Benzonatate 100 Mg Capsule) 100 mg PO TID PRN PRN Reason: Cough Last Admin: 10/22/24 05:49 Dose: 100 mg Documented By: DONNIE Calcium Carbonate (Calcium Carbonate 750 Mg Tab.Chew) 750 mg PO Q4H PRN PRN Reason: Heartburn Carvedilol (Carvedilol 6.25 Mg Tablet) 6.25 mg PO BID [facility]; Protocol Last Admin: 10/22/24 08:21 Dose: 6.25 mg Documented By: LUIS Digoxin (Digoxin 0.25 Mg Tablet) 0.25 mg PO DAILY [facility]; Protocol Last Admin: 10/22/24 08:21 Dose: 0.25 mg Documented By: LUIS Furosemide (Furosemide 40 Mg Tablet) 80 mg PO DAILY [facility]; Protocol Last Admin: 10/22/24 08:21 Dose: 80 mg Documented By: LUIS Glucose (Glucose Gel 15 Gm Gel..Gram.) 15 gm PO Q15M PRN; Protocol PRN Reason: per Hypoglycemia Standing Ord. Guaifenesin/Dextromethorphan (Guaifenesin Dm 600/30 1 Tab Tab.Er.12h) 1 tab PO BID [facility] Last Admin: 10/22/24 08:21 Dose: 1 tab Documented By: LUIS Heparin Sodium (Porcine) (Heparin Sodium,Porcine 5,000 Unit/Ml Vial) 5,000 unit SUBCUT Q12H [facility] Last Admin: 10/22/24 08:20 Dose: 5,000 unit Documented By: LUIS Hydroxyzine HCl (Hydroxyzine Hcl 50 Mg Tablet) 50 mg PO BEDTIME PRN PRN Reason: Anxiety Dextrose (D10) 250 mls @ 750 mls/hr IV Q15M PRN; Protocol PRN Reason: per Hypoglycemia Standing Ord. Insulin Glargine (Insulin Glargine,Hum.Rec.Anlog 100 Unit/Ml 10 Ml Vial) 40 unit SUBCUT BEDTIME [facility] Last Admin: 10/21/24 20:59 Dose: 40 unit Documented By: DONNIE Insulin Human Regular (Insulin Regular, Human 100 Unit/Ml 10 Ml Vial) 0 unit SUBCUT QIDACHS [facility]; Protocol Last Admin: 10/22/24 11:47 Dose: 8 unit Documented By: ROSI Co-signed By: LUIS Magnesium Hydroxide (Milk Of Magnesia 30 Ml Oral.Susp) 30 ml PO DAILY PRN PRN Reason: Constipation Melatonin (Melatonin 3 Mg Tablet) 6 mg PO BEDTIME PRN PRN Reason: Insomnia Metformin HCl (Metformin Hcl 500 Mg Tablet) 500 mg PO BID [facility] Last Admin: 10/22/24 08:22 Dose: 500 mg Documented By: LUIS Methylprednisolone Sodium Succinate (Methylprednisolone Sod Succ 40 Mg/Ml Vial) 40 mg IVPUSH Q12H [facility] Last Admin: 10/22/24 08:20 Dose: 40 mg Documented By: LUIS Metoprolol Succinate (Metoprolol Succinate Er 12.5 Mg Halftab.Er.24h) 12.5 mg PO DAILY [facility]; Protocol Last Admin: 10/22/24 08:22 Dose: 12.5 mg Documented By: LUIS Mirtazapine (Mirtazapine 15 Mg Tablet) 45 mg PO BEDTIME [facility] Last Admin: 10/21/24 20:14 Dose: 45 mg Documented By: DONNIE Non-Formulary Medication (Ivabradine [Corlanor]) 7.5 mg PO BID [facility] Omeprazole (Omeprazole 40 Mg Capsule.Dr) 40 mg PO DAILY@0630 [facility] Last Admin: 10/22/24 05:52 Dose: 40 mg Documented By: DONNIE Ondansetron HCl (Ondansetron Hcl 4 Mg/2 Ml Vial) 4 mg IVPUSH Q8H PRN PRN Reason: Nausea and Vomiting Sacubitril/Valsartan (Sacubitril/Valsartan 1 Tab Tablet) 1 tab PO BID [facility]; Protocol Last Admin: 10/22/24 08:22 Dose: 1 tab Documented By: LUIS Sertraline HCl (Sertraline Hcl 100 Mg Tablet) 200 mg PO DAILY [facility] Last Admin: 10/22/24 08:21 Dose: 200 mg Documented By: LUIS Sodium Chloride (0.9 % Sodium Chloride Flush 3 Ml Syringe) [facility] Last Admin: 10/22/24 08:21 Dose: 3 ml Documented By: LUIS Spironolactone (Spironolactone 25 Mg Tablet) 12.5 mg PO DAILY [facility]; Protocol Last Admin: 10/22/24 08:22 Dose: 12.5 mg Documented By: LUIS Labs 10/22/24 05:33 10/22/24 05:33 Labs: Laboratory Results - last 24 hr 12/10/21/24 10/21/24 23:54 13:03 16:11 MCV MCH MCHC RDW Plt Count MPV Immature Gran % (Auto) Neut % (Auto) Lymph % (Auto) Cotton % (Auto) Eos % (Auto) Baso % (Auto) Lymph # (Auto) Cotton # (Auto) Eos # (Auto) Baso # (Auto) Abs Immat Gran (auto) Absolute Neuts (auto) Absolute Nucleated RBC Nucleated RBC % (auto) Anion Gap 17 Estim Creat Clear Calc 53.0 Estimated GFR 41 POC Glucose 195 H Random Glucose 462 H* Fasting Glucose Calcium 9.5 D Total Bilirubin 0.3 AST 21 ALT 29 Alkaline Phosphatase 86 B-Natriuretic Peptide 32 Total Protein 7.3 Albumin 4.2 10/21/24 10/22/24 10/22/24 20:33 05:33 07:18 MCV 82.5 MCH 27.9 MCHC 33.8 RDW 13.2 Plt Count 245 MPV 10.3 Immature Gran % (Auto) 0.9 H Neut % (Auto) 88.2 H Lymph % (Auto) 8.5 L Cotton % (Auto) 2.3 Eos % (Auto) 0.0 Baso % (Auto) 0.1 Lymph # (Auto) 0.8 L Cotton # (Auto) 0.2 Eos # (Auto) 0.0 Baso # (Auto) 0.0 Abs Immat Gran (auto) 0.09 H Absolute Neuts (auto) 8.4 H Absolute Nucleated RBC 0.000 Nucleated RBC % (auto) 0.0 Anion Gap 16 Estim Creat Clear Calc 65.8 Estimated GFR 53 POC Glucose 396 H* 349 H Random Glucose Fasting Glucose 344 H Calcium 9.2 Total Bilirubin 0.4 AST 20 ALT 24 Alkaline Phosphatase 75 B-Natriuretic Peptide Total Protein 6.9 Albumin 4.0 10/22/24 11:06 MCV MCH MCHC RDW Plt Count MPV Immature Gran % (Auto) Neut % (Auto) Lymph % (Auto) Cotton % (Auto) Eos % (Auto) Baso % (Auto) Lymph # (Auto) Cotton # (Auto) Eos # (Auto) Baso # (Auto) Abs Immat Gran (auto) Absolute Neuts (auto) Absolute Nucleated RBC Nucleated RBC % (auto) Anion Gap Estim Creat Clear Calc Estimated GFR POC Glucose 346 H Random Glucose Fasting Glucose Calcium Total Bilirubin AST ALT Alkaline Phosphatase B-Natriuretic Peptide Total Protein Albumin Assessment and Plan (1) Asthma exacerbation: Status: Acute (2) Hyperglycemia due to type 2 diabetes mellitus: Status: Acute Plan A 54-year-old male with PMH of systolic CHF , CMP on ICD, HTN, HLD, insulin-dependent diabetes mellitus, mood disorder who presents to the emergency department for evaluation of worsening dyspnea and wheezing for few days. 1.Acute Asthma exacerbation -continue IV steroids... Switch to p.o. when improved -will start IV doxycyline given productive cough -nebulizers ATC and PRN -Wean O2 down as tolerated 2.JULY on CKD -responded to fluids. -follow renals/divalents 3.Type II DDM... Sugars elevated secondary to steroids -responding well to regular insulin sliding scale -Lantus 40 units HS/30 units a.m. -will increase metformin to a 1000 mg twice daily 4.Systolic Congestive heart failure with reduced ejection fraction -stable and well compensated Heparin Full code Patient requires ongoing hospitalization for IV steroids to treat asthma exacerbation Quality Stroke Does the patient have a stroke diagnosis?: No VTE Prior VTE?: No VTE Risk Level:: Medical - moderate - high VTE Device Contraindication: Treatment Not Indicated VTE Drug Contraindication: N/A - Med Ordered
--- NOTE | 2024-10-22 12:59 | MHC.CM.PN ---
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
[2024-10-22] MEDS: Doxycycline Hyclate 100 MG in 0.9 % Sodium Chloride 250 ML 166.67 MG IV ×2 (13:16→21:02)
[2024-10-22 15:49] VITALS: BP 117/64; PULSE 71; RESP 18; TEMP 36.6; O2SAT 94
[2024-10-22 16:31] LABS: Glucose, Whole Blood 371 mg/dL (60-115)
[2024-10-22] MEDS: metFORMIN HCl 1,000 MG TABLET 1000 MG PO (16:41)
--- NOTE | 2024-10-22 18:05 | P.CDIM_ITS ---
PROVIDER RESPONSE TEXT: To clarify, the appropriate diagnosis supported by the clinical indicators: Mild persistent: with exacerbation QUERY TEXT: PHYSICIAN'S DOCUMENTATION REQUEST Date of Query: 10/22/2024 08:51 AM EST Patient Name: Ian Hernandez Admit Date: 10/21/2024 Dear Nic Avery DO, A review of the medical record indicates additional documentation may be needed. Please review below and update the documentation accordingly. The diagnosis of asthma was documented in the record on 10/21/24. Additional clinical indicators from the record include: dyspnea, acute asthma exacerbation IV steroids, nebulizers, oxygen Based on the above, please clarify in the Progress Notes further specificity regarding the type and a cuity of the asthma: Mild intermittent Please specify if with or without acute exacerbation or status asthmaticus Mild persistent Please specify if with or without acute exacerbation or status asthmaticus Moderate persistent Please specify if with or without acute exacerbation or status asthmaticus Severe persistent Please specify if with or without acute exacerbation or status asthmaticus Exercise induced Please specify if with or without acute exacerbation or status asthmaticus Chronic obstructive asthma and indicate if with acute lower respiratory infection Please specify if with or without acute exacerbation or status asthmaticus Asthma with underlying COPD and indicate if with acute lower respiratory infection Please specify if with or without acute exacerbation or status asthmaticus Other (explain) Clinically unable to determine (explain) Thank you, Lore Davalos RN Use of terms such as suspected, likely, concern for, or probable (associated with a specific diagnosi s that is being evaluated, monitored, or treated as if it exists) are acceptable and can be coded in the inpatient se tting, when documented at the time of discharge. Please use your independent medical judgment in providing your response. THIS QUERY IS PART OF THE PERMANENT MEDICAL RECORD
[2024-10-22 20:00] VITALS: BP 106/56; PULSE 75; RESP 18; TEMP 36.6; O2SAT 96
[2024-10-22] MEDS: Mirtazapine 15 MG TABLET 45 MG PO (21:01)
[2024-10-22 21:05] LABS: Glucose, Whole Blood 255 mg/dL (60-115)
[2024-10-22] MEDS: Insulin Glargine,Hum.rec.anlog 100 UNIT/ML 10 ML VIAL 40 UNIT SUBCUT (21:26)
[2024-10-23 03:39] VITALS: BP 111/59; PULSE 70; RESP 18; TEMP 36.4; O2SAT 93
[2024-10-23] MEDS: Omeprazole 40 MG CAPSULE.DR PO (05:54)
[2024-10-23 06:29] LABS: MANUAL DIFF FLAG NO
[2024-10-23 06:54] LABS: Alanine Aminotransferase 31 U/L (0-40); Albumin Level 3.9 g/dL (3.5-5.0); Alkaline Phosphatase 89 U/L (39-117); Anion Gap 15 (12-20); Aspartate Amino Transferase 16 U/L (5-37); Bilirubin Total 0.4 mg/dL (0.0-1.0); Blood Urea Nitrogen 36 mg/dL (9-16); Carbon Dioxide 24 mmol/L (22-29); Chloride 105 mmol/L (96-108); Creatinine Clr Calc Pharmacy 53.9; Estimated Glomerular Filt Rate 42; Potassium 5.1 mmol/L (3.3-5.1); Sodium 139 mmol/L (135-145); Total Protein 6.9 g/dL (6.5-8.0)
[2024-10-23 06:59] LABS: Basophils Percent Auto 0.1 % (0-2); Eosinophils Percent Auto 0.1 % (0-4); Hematocrit 44.6 % (42.0-52.0); Hemoglobin 15.1 g/dl (14.0-18.0); Imm Gran Abs Auto 0.12 X10*3/uL (0.00-0.03); Imm Gran Pct Auto 1.6 % (0.0-0.4); Lymphocytes Absolute Auto 1.2 X10*3/uL (1.2-4.9); Lymphocytes Percent Auto 15.6 % (20-40); Mean Corpuscular HGB Conc 33.9 g/dl (31.0-36.0); Mean Corpuscular Hemoglobin 28.4 pg (27.0-33.0); Mean Corpuscular Volume 83.8 fL (80.0-98.0); Mean Platelet Volume 10.5 fL (9.4-12.4); Monocytes Absolute Auto 0.2 X10*3/uL (0.1-1.2); Monocytes Percent Auto 2.7 % (2-11); Neutrophils Percent Auto 79.9 % (45-73); Platelet Count 244 X10*3/uL (160-400); Red Blood Count 5.32 X10*6/uL (4.60-5.80); Red Cell Distribution Width 13.2 % (11.0-16.0); White Blood Count 7.5 X10*3/uL (4.8-10.8)
[2024-10-23 07:07] LABS: Glucose Fasting 355 mg/dL (60-99)
[2024-10-23 07:53] LABS: Glucose, Whole Blood 298 mg/dL (60-115)
[2024-10-23 07:54] VITALS: BP 104/64; PULSE 76; RESP 16; TEMP 36.1; O2SAT 95
[2024-10-23] MEDS: Sertraline HCL 100 MG TABLET 200 MG PO (08:12)
[2024-10-23] MEDS: Spironolactone 25 MG TABLET 12.5 MG PO (08:12)
[2024-10-23] MEDS: guaiFENesin DM 600/30 1 TAB TAB.ER.12H PO ×2 (08:12→20:42)
[2024-10-23] MEDS: carvediloL 6.25 MG TABLET PO ×2 (08:12→20:42)
[2024-10-23] MEDS: metFORMIN HCl 1,000 MG TABLET 1000 MG PO (08:13)
[2024-10-23] MEDS: Aspirin Enteric Coated 81 MG TABLET.DR PO (08:13)
[2024-10-23] MEDS: Digoxin 0.25 MG TABLET PO (08:13)
[2024-10-23] MEDS: Metoprolol Succinate ER 12.5 MG HALFTAB.ER.24H PO (08:13)
[2024-10-23] MEDS: 0.9 % Sodium Chloride Flush 3 ML SYRINGE IVFLUSH ×2 (08:14→16:48)
[2024-10-23] MEDS: Sacubitril/Valsartan 24/26 1 TAB TABLET PO ×2 (08:14→20:42)
[2024-10-23] MEDS: Insulin Regular, Human 100 UNIT/ML 10 ML VIAL SUBCUT ×4 (08:14→21:52)
[2024-10-23] MEDS: Heparin Sodium,Porcine 5,000 UNIT/ML VIAL 5000 UNIT SUBCUT ×2 (08:17→20:43)
[2024-10-23] MEDS: Doxycycline Hyclate 100 MG in 0.9 % Sodium Chloride 250 ML 166.67 MG IV ×2 (08:18→20:37)
[2024-10-23] MEDS: Furosemide 40 MG TABLET 80 MG PO (08:21)
[2024-10-23] MEDS: Benzonatate 100 MG CAPSULE PO (09:38)
[2024-10-23] MEDS: methylPREDNISolone Sod Succ 125 MG/2 ML VIAL 60 MG IVPUSH ×3 (09:49→21:51)
--- NOTE | 2024-10-23 11:09 | P.PNIM_ITS ---
Subjective Subjective Date of Service: 10/23/24 Interval History: Some improvement with the addition of doxycycline however remains wheezy. Sugars fairly well control with NPH sliding scale Review of Systems Denies chest pain Admits shortness of breath with minimal movement Denies nausea vomiting diarrhea Denies fever chills Physical Exam 2 Vital Signs: Vital Signs: Last Vital Signs Temp 96.9 F 10/23/24 07:54 Pulse 76 10/23/24 07:54 Resp 16 10/23/24 07:54 BP 104/64 10/23/24 07:54 Pulse Ox 95 10/23/24 07:54 O2 Del Method Room Air 10/23/24 07:54 O2 Flow Rate 6 10/21/24 07:33 Oxygen Flow Rate 6 10/20/24 23:41 BMI result Body Mass Index 30.0 Const: Other: Awake alert oriented x3 Resp: Other: Diminished at bases with improved aeration. Scattered coarse rhonchi with diffuse expiratory wheezes throughout lower lobes; faint crackles right base Cardio: Other: No S4; positive S1-S2; no S3 murmurs rubs or gallops GI: Other: Soft nontender nondistended normoactive bowel sounds Extrem: Other: No edema Objective Data Active Medications Acetaminophen (Acetaminophen 325 Mg Tablet) 650 mg PO Q6H PRN PRN Reason: Pain, Mild 1-3,fever,headache Albuterol Sulfate (Albuterol Sulfate (0.083%) 2.5 Mg/3 Ml Vial.Neb) 2.5 mg INHALE Q4H PRN PRN Reason: Shortness of Breath/Wheezing Last Admin: 10/21/24 04:45 Dose: 2.5 mg Documented By: EVELYNE Albuterol/Ipratropium (Albuterol/Iprat 2.5/0.5mg 3 Ml Ampul.Neb) 3 ml INHALE Q4H PRN PRN Reason: Shortness of Breath/Wheezing Last Admin: 10/21/24 15:29 Dose: 3 ml Documented By: KONSTANTIN Aspirin (Aspirin Enteric Coated 81 Mg Tablet.) 81 mg PO DAILY [facility] Last Admin: 10/23/24 08:13 Dose: 81 mg Documented By: ROSI Benzonatate (Benzonatate 100 Mg Capsule) 100 mg PO TID PRN PRN Reason: Cough Last Admin: 10/23/24 09:38 Dose: 100 mg Documented By: ROSI Calcium Carbonate (Calcium Carbonate 750 Mg Tab.Chew) 750 mg PO Q4H PRN PRN Reason: Heartburn Carvedilol (Carvedilol 6.25 Mg Tablet) 6.25 mg PO BID [facility]; Protocol Last Admin: 10/23/24 08:12 Dose: 6.25 mg Documented By: ROSI Digoxin (Digoxin 0.25 Mg Tablet) 0.25 mg PO DAILY [facility]; Protocol Last Admin: 10/23/24 08:13 Dose: 0.25 mg Documented By: ROSI Furosemide (Furosemide 40 Mg Tablet) 80 mg PO DAILY [facility]; Protocol Last Admin: 10/22/24 08:21 Dose: 80 mg Documented By: LUIS Glucose (Glucose Gel 15 Gm Gel..Gram.) 15 gm PO Q15M PRN; Protocol PRN Reason: per Hypoglycemia Standing Ord. Glyburide (Glyburide 5 Mg Tablet) 10 mg PO BIDWM [facility] Guaifenesin/Dextromethorphan (Guaifenesin Dm 600/30 1 Tab Tab.Er.12h) 1 tab PO BID [facility] Last Admin: 10/23/24 08:12 Dose: 1 tab Documented By: ROSI Heparin Sodium (Porcine) (Heparin Sodium,Porcine 5,000 Unit/Ml Vial) 5,000 unit SUBCUT Q12H [facility] Last Admin: 10/23/24 08:17 Dose: 5,000 unit Documented By: ROSI Hydroxyzine HCl (Hydroxyzine Hcl 50 Mg Tablet) 50 mg PO BEDTIME PRN PRN Reason: Anxiety Dextrose (D10) 250 mls @ 750 mls/hr IV Q15M PRN; Protocol PRN Reason: per Hypoglycemia Standing Ord. Doxycycline Hyclate 100 mg/ (Sodium Chloride) 250 mls @ 166.67 mls/hr IV BID [facility] Last Infusion: 10/23/24 09:52 Dose: Infused Documented By: ROSI Insulin Glargine (Insulin Glargine,Hum.Rec.Anlog 100 Unit/Ml 10 Ml Vial) 40 unit SUBCUT BEDTIME [facility] Last Admin: 10/22/24 21:26 Dose: 40 unit Documented By: JAMEY Insulin Human Regular (Insulin Regular, Human 100 Unit/Ml 10 Ml Vial) 0 unit SUBCUT QIDACHS [facility]; Protocol Last Admin: 10/23/24 08:14 Dose: 6 unit Documented By: ROSI Co-signed By: BRIDGETTE Magnesium Hydroxide (Milk Of Magnesia 30 Ml Oral.Susp) 30 ml PO DAILY PRN PRN Reason: Constipation Melatonin (Melatonin 3 Mg Tablet) 6 mg PO BEDTIME PRN PRN Reason: Insomnia Metformin HCl (Metformin Hcl 500 Mg Tablet) 500 mg PO BIDWM [facility] Methylprednisolone Sodium Succinate (Methylprednisolone Sod Succ 125 Mg/2 Ml Vial) 60 mg IVPUSH Q6H [facility] Last Admin: 10/23/24 09:49 Dose: 60 mg Documented By: ROSI Metoprolol Succinate (Metoprolol Succinate Er 12.5 Mg Halftab.Er.24h) 12.5 mg PO DAILY [facility]; Protocol Last Admin: 10/23/24 08:13 Dose: 12.5 mg Documented By: ROSI Mirtazapine (Mirtazapine 15 Mg Tablet) 45 mg PO BEDTIME [facility] Last Admin: 10/22/24 21:01 Dose: 45 mg Documented By: JAMEY Non-Formulary Medication (Ivabradine [Corlanor]) 7.5 mg PO BID [facility] Omeprazole (Omeprazole 40 Mg Capsule.Dr) 40 mg PO DAILY@0630 [facility] Last Admin: 10/23/24 05:54 Dose: 40 mg Documented By: JAMEY Ondansetron HCl (Ondansetron Hcl 4 Mg/2 Ml Vial) 4 mg IVPUSH Q8H PRN PRN Reason: Nausea and Vomiting Sacubitril/Valsartan (Sacubitril/Valsartan 1 Tab Tablet) 1 tab PO BID [facility]; Protocol Last Admin: 10/23/24 08:14 Dose: 1 tab Documented By: ROSI Sertraline HCl (Sertraline Hcl 100 Mg Tablet) 200 mg PO DAILY [facility] Last Admin: 10/23/24 08:12 Dose: 200 mg Documented By: ROSI Sodium Chloride (0.9 % Sodium Chloride Flush 3 Ml Syringe) 3 ml IVFLUSH QSHIFT [facility] Last Admin: 10/23/24 08:14 Dose: 3 ml Documented By: ROSI Spironolactone (Spironolactone 25 Mg Tablet) 12.5 mg PO DAILY [facility]; Protocol Last Admin: 10/23/24 08:12 Dose: 12.5 mg Documented By: ROSI Labs 10/23/24 05:33 10/23/24 05:33 Labs: Laboratory Results - last 24 hr 10/22/24 10/22/24 10/22/24 11:06 16:25 21:02 MCV MCH MCHC RDW Plt Count MPV Immature Gran % (Auto) Neut % (Auto) Lymph % (Auto) Butts % (Auto) Eos % (Auto) Baso % (Auto) Lymph # (Auto) Butts # (Auto) Eos # (Auto) Baso # (Auto) Abs Immat Gran (auto) Absolute Neuts (auto) Absolute Nucleated RBC Nucleated RBC % (auto) Anion Gap Estim Creat Clear Calc Estimated GFR POC Glucose 346 H 371 H* 255 H Fasting Glucose Calcium Total Bilirubin AST ALT Alkaline Phosphatase Total Protein Albumin 10/23/24 10/23/24 05:33 07:50 MCV 83.8 MCH 28.4 MCHC 33.9 RDW 13.2 Plt Count 244 MPV 10.5 Immature Gran % (Auto) 1.6 H Neut % (Auto) 79.9 H Lymph % (Auto) 15.6 L Butts % (Auto) 2.7 Eos % (Auto) 0.1 Baso % (Auto) 0.1 Lymph # (Auto) 1.2 Butts # (Auto) 0.2 Eos # (Auto) 0.0 Baso # (Auto) 0.0 Abs Immat Gran (auto) 0.12 H Absolute Neuts (auto) 6.0 Absolute Nucleated RBC 0.000 Nucleated RBC % (auto) 0.0 Anion Gap 15 Estim Creat Clear Calc 53.9 Estimated GFR 42 POC Glucose 298 H Fasting Glucose 355 H* Calcium 10.0 D Total Bilirubin 0.4 AST 16 ALT 31 Alkaline Phosphatase 89 Total Protein 6.9 Albumin 3.9 Assessment and Plan (1) Asthma exacerbation: Status: Acute (2) Acute kidney injury superimposed on stage 3b chronic kidney disease: Status: Acute (3) Hyperglycemia due to type 2 diabetes mellitus: Status: Acute Plan A 54-year-old male with PMH of systolic CHF , CMP on ICD, HTN, HLD, insulin- dependent diabetes mellitus, mood disorder who presents to the emergency department for evaluation of worsening dyspnea and wheezing for few days. 1.Acute Asthma exacerbation -increase Solu-Medrol to 60 mg IV q.6 hours -continue doxycycline (2) -nebulizers ATC and PRN -no O2 requirement -repeat chest x-ray in department 2.JULY on CKD -responded to fluids. -follow renals/divalents 3.Type II DDM... Sugars elevated secondary to steroids -responding well to regular insulin sliding scale -Lantus 40 units HS/30 units a.m.... -metformin reduced to 500 mg b.i.d. secondary to renal function -add glyburide 10 mg b.i.d. 4.Systolic Congestive heart failure with reduced ejection fraction -stable and well compensated Heparin Full code Patient requires ongoing hospitalization for IV steroids to treat asthma exacerbation Quality Stroke Does the patient have a stroke diagnosis?: No VTE Prior VTE?: No VTE Risk Level:: Medical - moderate - high VTE Device Contraindication: Treatment Not Indicated VTE Drug Contraindication: N/A - Med Ordered
[2024-10-23 11:46] LABS: Glucose, Whole Blood 320 mg/dL (60-115)
[2024-10-23] MEDS: glyBURIDE 5 MG TABLET 10 MG PO ×2 (11:52→16:43)
[2024-10-23] MEDS: Albuterol Sulfate (0.083%) 2.5 MG/3 ML VIAL.NEB INHALE (15:16)
[2024-10-23 15:17] VITALS: PULSE 76; RESP 16; O2SAT 98
[2024-10-23 15:22] VITALS: BP 119/69; PULSE 68; RESP 16; TEMP 35.9; O2SAT 98
[2024-10-23 16:34] LABS: Glucose, Whole Blood 294 mg/dL (60-115)
[2024-10-23] MEDS: metFORMIN HCl 500 MG TABLET PO (16:43)
[2024-10-23 19:13] VITALS: BP 120/67; PULSE 70; RESP 14; TEMP 36; O2SAT 96
[2024-10-23 20:34] LABS: Glucose, Whole Blood 345 mg/dL (60-115)
[2024-10-23] MEDS: Mirtazapine 15 MG TABLET 45 MG PO (20:42)
[2024-10-23] MEDS: Insulin Glargine,Hum.rec.anlog 100 UNIT/ML 10 ML VIAL 40 UNIT SUBCUT (21:51)
[2024-10-24] MEDS: 0.9 % Sodium Chloride Flush 3 ML SYRINGE IVFLUSH ×3 (01:06→16:56)
[2024-10-24 03:16] VITALS: BP 100/61; PULSE 75; RESP 16; TEMP 36.2; O2SAT 95
[2024-10-24] MEDS: methylPREDNISolone Sod Succ 125 MG/2 ML VIAL 60 MG IVPUSH ×4 (03:21→21:54)
[2024-10-24] MEDS: Omeprazole 40 MG CAPSULE.DR PO (06:30)
[2024-10-24 06:40] LABS: MANUAL DIFF FLAG NO
[2024-10-24 06:42] LABS: Basophils Percent Auto 0.1 % (0-2); Hematocrit 42.4 % (42.0-52.0); Hemoglobin 14.6 g/dl (14.0-18.0); Imm Gran Abs Auto 0.13 X10*3/uL (0.00-0.03); Imm Gran Pct Auto 1.3 % (0.0-0.4); Lymphocytes Absolute Auto 0.9 X10*3/uL (1.2-4.9); Lymphocytes Percent Auto 8.9 % (20-40); Mean Corpuscular HGB Conc 34.4 g/dl (31.0-36.0); Mean Corpuscular Hemoglobin 28.2 pg (27.0-33.0); Mean Platelet Volume 10.4 fL (9.4-12.4); Monocytes Absolute Auto 0.2 X10*3/uL (0.1-1.2); Monocytes Percent Auto 2.1 % (2-11); Neutrophils Absolute Auto 8.9 x10*3/uL (2.0-8.3); Neutrophils Percent Auto 87.6 % (45-73); Platelet Count 235 X10*3/uL (160-400); Red Blood Count 5.17 X10*6/uL (4.60-5.80); Red Cell Distribution Width 13.2 % (11.0-16.0); White Blood Count 10.2 X10*3/uL (4.8-10.8)
[2024-10-24 06:58] LABS: Alanine Aminotransferase 28 U/L (0-40); Albumin Level 3.6 g/dL (3.5-5.0); Alkaline Phosphatase 76 U/L (39-117); Anion Gap 14 (12-20); Aspartate Amino Transferase 11 U/L (5-37); Bilirubin Total 0.3 mg/dL (0.0-1.0); Blood Urea Nitrogen 35 mg/dL (9-16); Calcium 9.7 mg/dL (8.4-10.2); Carbon Dioxide 23 mmol/L (22-29); Chloride 106 mmol/L (96-108); Creatinine Clr Calc Pharmacy 67.7; Estimated Glomerular Filt Rate 54; Glucose Fasting 303 mg/dL (60-99); Potassium 4.5 mmol/L (3.3-5.1); Sodium 138 mmol/L (135-145); Total Protein 6.4 g/dL (6.5-8.0)
[2024-10-24 07:16] LABS: Glucose, Whole Blood 257 mg/dL (60-115)
[2024-10-24 07:28] VITALS: BP 104/60; PULSE 83; RESP 16; TEMP 36.4; O2SAT 97
[2024-10-24] MEDS: Albuterol Sulfate (0.083%) 2.5 MG/3 ML VIAL.NEB INHALE (07:40)
[2024-10-24 07:42] VITALS: PULSE 85; RESP 16; O2SAT 97
[2024-10-24] MEDS: Insulin Regular, Human 100 UNIT/ML 10 ML VIAL SUBCUT ×4 (08:10→20:10)
[2024-10-24] MEDS: Furosemide 40 MG TABLET 80 MG PO (08:10)
[2024-10-24] MEDS: Heparin Sodium,Porcine 5,000 UNIT/ML VIAL 5000 UNIT SUBCUT ×2 (08:10→20:12)
[2024-10-24] MEDS: Aspirin Enteric Coated 81 MG TABLET.DR PO (08:12)
[2024-10-24] MEDS: Sertraline HCL 100 MG TABLET 200 MG PO (08:12)
[2024-10-24] MEDS: Digoxin 0.25 MG TABLET PO (08:12)
[2024-10-24] MEDS: guaiFENesin DM 600/30 1 TAB TAB.ER.12H PO ×2 (08:12→20:14)
[2024-10-24] MEDS: carvediloL 6.25 MG TABLET PO ×2 (08:12→20:13)
[2024-10-24] MEDS: Metoprolol Succinate ER 12.5 MG HALFTAB.ER.24H PO (08:12)
[2024-10-24] MEDS: Sacubitril/Valsartan 24/26 1 TAB TABLET PO ×2 (08:13→20:13)
[2024-10-24] MEDS: metFORMIN HCl 500 MG TABLET PO ×2 (08:13→16:56)
[2024-10-24] MEDS: glyBURIDE 5 MG TABLET 10 MG PO ×2 (08:13→16:56)
[2024-10-24] MEDS: Spironolactone 25 MG TABLET 12.5 MG PO (08:13)
[2024-10-24] MEDS: Doxycycline Hyclate 100 MG in 0.9 % Sodium Chloride 250 ML 166.67 MG IV ×2 (08:15→20:14)
--- NOTE | 2024-10-24 10:22 | HO.PM.IMPN ---
Subjective Subjective Date of Service: 10/24/24 Interval History: Notable improvement with increase in steroids. Sugars remained fairly well controlled. Review of Systems Denies chest pain Admits shortness of breath with minimal movement Denies nausea vomiting diarrhea Denies fever chills Physical Exam Vital Signs: Vital Signs: Last Vital Signs Temp 97.6 F 10/24/24 07:28 Pulse 85 10/24/24 07:42 Resp 16 10/24/24 07:42 BP 104/60 10/24/24 07:28 Pulse Ox 97 10/24/24 07:28 O2 Del Method Room Air 10/24/24 07:28 O2 Flow Rate 6 10/21/24 07:33 Oxygen Flow Rate 6 10/20/24 23:41 BMI result Body Mass Index 30.0 Const: Other: Awake alert oriented x3 Resp: Other: Diminished at bases with improved aeration. Scattered coarse rhonchi with diffuse expiratory wheezes throughout lower lobes; faint crackles right base Cardio: Other: No S4; positive S1-S2; no S3 murmurs rubs or gallops GI: Other: Soft nontender nondistended normoactive bowel sounds Extrem: Other: No edema Objective Data Active Medications Acetaminophen (Acetaminophen 325 Mg Tablet) 650 mg PO Q6H PRN PRN Reason: Pain, Mild 1-3,fever,headache Albuterol Sulfate (Albuterol Sulfate (0.083%) 2.5 Mg/3 Ml Vial.Neb) 2.5 mg INHALE Q4H PRN PRN Reason: Shortness of Breath/Wheezing Last Admin: 10/24/24 07:40 Dose: 2.5 mg Documented By: BAKARI Albuterol/Ipratropium (Albuterol/Iprat 2.5/0.5mg 3 Ml Ampul.Neb) 3 ml INHALE Q4H PRN PRN Reason: Shortness of Breath/Wheezing Last Admin: 10/21/24 15:29 Dose: 3 ml Documented By: KONSTANTIN Aspirin (Aspirin Enteric Coated 81 Mg Tablet.Dr) 81 mg PO DAILY RITA Last Admin: 10/24/24 08:12 Dose: 81 mg Documented By: ROSI Benzonatate (Benzonatate 100 Mg Capsule) 100 mg PO TID PRN PRN Reason: Cough Last Admin: 10/23/24 09:38 Dose: 100 mg Documented By: ROSI Calcium Carbonate (Calcium Carbonate 750 Mg Tab.Chew) 750 mg PO Q4H PRN PRN Reason: Heartburn Carvedilol (Carvedilol 6.25 Mg Tablet) 6.25 mg PO BID [facility]; Protocol Last Admin: 10/24/24 08:12 Dose: 6.25 mg Documented By: ROSI Digoxin (Digoxin 0.25 Mg Tablet) 0.25 mg PO DAILY [facility]; Protocol Last Admin: 10/24/24 08:12 Dose: 0.25 mg Documented By: ROSI Furosemide (Furosemide 40 Mg Tablet) 80 mg PO DAILY [facility]; Protocol Last Admin: 10/24/24 08:10 Dose: 80 mg Documented By: ROSI Glucose (Glucose Gel 15 Gm Gel..Gram.) 15 gm PO Q15M PRN; Protocol PRN Reason: per Hypoglycemia Standing Ord. Glyburide (Glyburide 5 Mg Tablet) 10 mg PO BIDWM [facility] Last Admin: 10/24/24 08:13 Dose: 10 mg Documented By: ROSI Guaifenesin/Dextromethorphan (Guaifenesin Dm 600/30 1 Tab Tab.Er.12h) 1 tab PO BID [facility] Last Admin: 10/24/24 08:12 Dose: 1 tab Documented By: ROSI Heparin Sodium (Porcine) (Heparin Sodium,Porcine 5,000 Unit/Ml Vial) 5,000 unit SUBCUT Q12H [facility] Last Admin: 10/24/24 08:10 Dose: 5,000 unit Documented By: ROSI Hydroxyzine HCl (Hydroxyzine Hcl 50 Mg Tablet) 50 mg PO BEDTIME PRN PRN Reason: Anxiety Dextrose (D10) 250 mls @ 750 mls/hr IV Q15M PRN; Protocol PRN Reason: per Hypoglycemia Standing Ord. Doxycycline Hyclate 100 mg/ (Sodium Chloride) 250 mls @ 166.67 mls/hr IV BID [facility] Last Admin: 10/24/24 08:15 Dose: 166.67 mls/hr Documented By: ROSI Insulin Glargine (Insulin Glargine,Hum.Rec.Anlog 100 Unit/Ml 10 Ml Vial) 40 unit SUBCUT BEDTIME [facility] Last Admin: 10/23/24 21:51 Dose: 40 unit Documented By: JAMEY Insulin Human Regular (Insulin Regular, Human 100 Unit/Ml 10 Ml Vial) 0 unit SUBCUT QIDACHS [facility]; Protocol Last Admin: 10/24/24 08:10 Dose: 6 unit Documented By: ROSI Co-signed By: BRIELLE Magnesium Hydroxide (Milk Of Magnesia 30 Ml Oral.Susp) 30 ml PO DAILY PRN PRN Reason: Constipation Melatonin (Melatonin 3 Mg Tablet) 6 mg PO BEDTIME PRN PRN Reason: Insomnia Metformin HCl (Metformin Hcl 500 Mg Tablet) 500 mg PO BIDWM [facility] Last Admin: 10/24/24 08:13 Dose: 500 mg Documented By: ROSI Methylprednisolone Sodium Succinate (Methylprednisolone Sod Succ 125 Mg/2 Ml Vial) 60 mg IVPUSH Q6H [facility] Last Admin: 10/24/24 08:11 Dose: 60 mg Documented By: ROSI Metoprolol Succinate (Metoprolol Succinate Er 12.5 Mg Halftab.Er.24h) 12.5 mg PO DAILY [facility]; Protocol Last Admin: 10/24/24 08:12 Dose: 12.5 mg Documented By: ROSI Mirtazapine (Mirtazapine 15 Mg Tablet) 45 mg PO BEDTIME [facility] Last Admin: 10/23/24 20:42 Dose: 45 mg Documented By: JAMEY Non-Formulary Medication (Ivabradine [Corlanor]) 7.5 mg PO BID [facility] Omeprazole (Omeprazole 40 Mg Capsule.Dr) 40 mg PO DAILY@0630 [facility] Last Admin: 10/24/24 06:30 Dose: 40 mg Documented By: JAMEY Ondansetron HCl (Ondansetron Hcl 4 Mg/2 Ml Vial) 4 mg IVPUSH Q8H PRN PRN Reason: Nausea and Vomiting Sacubitril/Valsartan (Sacubitril/Valsartan 1 Tab Tablet) 1 tab PO BID [facility]; Protocol Last Admin: 10/24/24 08:13 Dose: 1 tab Documented By: ROSI Sertraline HCl (Sertraline Hcl 100 Mg Tablet) 200 mg PO DAILY [facility] Last Admin: 10/24/24 08:12 Dose: 200 mg Documented By: ROSI Sodium Chloride (0.9 % Sodium Chloride Flush 3 Ml Syringe) 3 ml IVFLUSH QSHIFT [facility] Last Admin: 10/24/24 08:16 Dose: 3 ml Documented By: ROSI Spironolactone (Spironolactone 25 Mg Tablet) 12.5 mg PO DAILY [facility]; Protocol Last Admin: 10/24/24 08:13 Dose: 12.5 mg Documented By: ROSI Labs 10/24/24 06:02 10/24/24 06:02 Labs: Laboratory Results - last 24 hr 10/23/24 10/23/24 10/23/24 11:42 16:26 20:30 MCV MCH MCHC RDW Plt Count MPV Immature Gran % (Auto) Neut % (Auto) Lymph % (Auto) Stearns % (Auto) Eos % (Auto) Baso % (Auto) Lymph # (Auto) Stearns # (Auto) Eos # (Auto) Baso # (Auto) Abs Immat Gran (auto) Absolute Neuts (auto) Absolute Nucleated RBC Nucleated RBC % (auto) Anion Gap Estim Creat Clear Calc Estimated GFR POC Glucose 320 H 294 H 345 H Fasting Glucose Calcium Total Bilirubin AST ALT Alkaline Phosphatase Total Protein Albumin 10/24/24 10/24/24 06:02 07:12 MCV 82.0 MCH 28.2 MCHC 34.4 RDW 13.2 Plt Count 235 MPV 10.4 Immature Gran % (Auto) 1.3 H Neut % (Auto) 87.6 H Lymph % (Auto) 8.9 L Stearns % (Auto) 2.1 Eos % (Auto) 0.0 Baso % (Auto) 0.1 Lymph # (Auto) 0.9 L Stearns # (Auto) 0.2 Eos # (Auto) 0.0 Baso # (Auto) 0.0 Abs Immat Gran (auto) 0.13 H Absolute Neuts (auto) 8.9 H Absolute Nucleated RBC 0.000 Nucleated RBC % (auto) 0.0 Anion Gap 14 Estim Creat Clear Calc 67.7 Estimated GFR 54 POC Glucose 257 H Fasting Glucose 303 H Calcium 9.7 Total Bilirubin 0.3 AST 11 ALT 28 Alkaline Phosphatase 76 Total Protein 6.4 L Albumin 3.6 Assessment and Plan (1) Asthma exacerbation: Status: Acute (2) Acute kidney injury superimposed on stage 3b chronic kidney disease: Status: Acute (3) Type 2 diabetes mellitus with chronic kidney disease: Status: Acute Plan A 54-year-old male with PMH of systolic CHF , CMP on ICD, HTN, HLD, insulin-dependent diabetes mellitus, mood disorder who presents to the emergency department for evaluation of worsening dyspnea and wheezing for few days. 1.Acute Asthma exacerbation -increase Solu-Medrol to 60 mg IV q.6 hours -continue doxycycline (3)... Likely switch to p.o. in a.m. -nebulizers ATC and PRN -no O2 requirement -repeat chest x-ray without acute findings 2.JULY on CKD -responded to fluids. -follow renals/divalents 3.Type II DDM... Sugars elevated secondary to steroids -responding well to regular insulin sliding scale -Lantus 40 units HS/30 units a.m.... -metformin reduced to 500 mg b.i.d. secondary to renal function -add glyburide 10 mg b.i.d.... Good response -continue same hopefully switch to p.o. steroids in a.m. 4.Systolic Congestive heart failure with reduced ejection fraction -stable and well compensated Heparin Full code Patient requires ongoing hospitalization for IV steroids to treat asthma exacerbation Quality Stroke Does the patient have a stroke diagnosis?: No VTE Prior VTE?: No VTE Risk Level:: Medical - moderate - high VTE Device Contraindication: Treatment Not Indicated VTE Drug Contraindication: N/A - Med Ordered
[2024-10-24 11:20] LABS: Glucose, Whole Blood 374 mg/dL (60-115)
[2024-10-24 15:19] VITALS: BP 108/63; PULSE 71; RESP 15; TEMP 36.1; O2SAT 95
[2024-10-24 16:33] LABS: Glucose, Whole Blood 350 mg/dL (60-115)
[2024-10-24 19:05] VITALS: BP 114/58; PULSE 74; RESP 16; TEMP 36.3; O2SAT 94
[2024-10-24 19:50] LABS: Glucose, Whole Blood 301 mg/dL (60-115)
[2024-10-24] MEDS: Insulin Glargine,Hum.rec.anlog 100 UNIT/ML 10 ML VIAL 40 UNIT SUBCUT (20:08)
[2024-10-24] MEDS: Mirtazapine 15 MG TABLET 45 MG PO (20:12)
[2024-10-24 20:13] VITALS: BP 118/67; PULSE 65
[2024-10-25 03:06] VITALS: BP 114/56; PULSE 74; RESP 16; TEMP 36.1; O2SAT 95
[2024-10-25] MEDS: methylPREDNISolone Sod Succ 125 MG/2 ML VIAL 60 MG IVPUSH ×2 (03:10→10:48)
[2024-10-25] MEDS: 0.9 % Sodium Chloride Flush 3 ML SYRINGE IVFLUSH ×2 (03:13→08:04)
[2024-10-25] MEDS: Omeprazole 40 MG CAPSULE.DR PO (05:56)
[2024-10-25 07:15] VITALS: BP 106/61; PULSE 76; RESP 16; TEMP 36.2; O2SAT 95
[2024-10-25 07:33] LABS: Glucose, Whole Blood 215 mg/dL (60-115)
[2024-10-25] MEDS: Sacubitril/Valsartan 24/26 1 TAB TABLET PO (08:05)
[2024-10-25] MEDS: metFORMIN HCl 500 MG TABLET PO (08:05)
[2024-10-25] MEDS: glyBURIDE 5 MG TABLET 10 MG PO (08:05)
[2024-10-25] MEDS: Heparin Sodium,Porcine 5,000 UNIT/ML VIAL 5000 UNIT SUBCUT (08:05)
[2024-10-25] MEDS: carvediloL 6.25 MG TABLET PO (08:05)
[2024-10-25] MEDS: Furosemide 40 MG TABLET 80 MG PO (08:06)
[2024-10-25] MEDS: Sertraline HCL 100 MG TABLET 200 MG PO (08:06)
[2024-10-25] MEDS: Metoprolol Succinate ER 12.5 MG HALFTAB.ER.24H PO (08:06)
[2024-10-25] MEDS: Doxycycline Monohydrate 100 MG CAPSULE PO (08:06)
[2024-10-25] MEDS: Digoxin 0.25 MG TABLET PO (08:06)
[2024-10-25] MEDS: guaiFENesin DM 600/30 1 TAB TAB.ER.12H PO (08:07)
[2024-10-25] MEDS: Spironolactone 25 MG TABLET 12.5 MG PO (08:07)
[2024-10-25] MEDS: Aspirin Enteric Coated 81 MG TABLET.DR PO (08:07)
[2024-10-25] MEDS: Insulin Regular, Human 100 UNIT/ML 10 ML VIAL SUBCUT ×2 (08:25→11:27)
--- NOTE | 2024-10-25 11:01 | P.DS_ITS ---
DS: Providers Provider Date of Service: 10/25/24 Date of admission: 10/21/24 03:54 Date of discharge: 10/25/24 Primary care physician: Tor Villela MD DS: Diagnosis Discharge Diagnosis (1) Asthma exacerbation: Status: Acute (2) Acute kidney injury superimposed on stage 3b chronic kidney disease: Status: Acute (3) Type 2 diabetes mellitus with chronic kidney disease: Status: Acute DS: Summary Hospital Course Hospital Course: 54-year-old male with PMH of systolic CHF , CMP on ICD, HTN, HLD, insulin- dependent diabetes mellitus, mood disorder who presents to the emergency department for evaluation of worsening dyspnea and wheezing for few days. The patient states that he has been complaining of difficulties breathing and increasing cough and shortness of breath for the last 2 week inspite of using his home inhaler and nebulizer. No chest pain, palpitations, nausea, vomiting, diarrhea or urinary symptoms. In ED CXR did not show any infiltrates. BMP showed worsening CKD 3 and hyperglycemia. Started on Steroids, nebulizer treatment and admitted for further work up and management. Hospital Course Patient admitted to general medical floor and continued on pulse dose steroids. Wheezing persisted and steroids were increased to q.6 hours. Doxycycline was added given productive cough. The patient progressed slowly over the next 48 hours however at this point in time is medically acceptable for discharge. Patient sugars were initially difficult to manage so patient was maintained on a regular insulin sliding scale. Glipizide 10 mg b.i.d. was added to his regimen for discharge. He will be discharged home to complete a short taper prednisone on a course of doxycycline Time Attestation Discharge Coordination Time (in mins): 35 Quality: Safe Use of Opioids Does Pt have an Active Cancer Diagnosis on the Problem List?: No Quality: Stroke Does the patient have a stroke diagnosis?: No Physical Exam Vital Signs: Vital Signs: Last Vital Signs Temp 97.1 F 10/25/24 07:15 Pulse 76 10/25/24 07:15 Resp 16 10/25/24 07:15 BP 106/61 10/25/24 07:15 Pulse Ox 95 10/25/24 07:15 O2 Del Method Room Air 10/25/24 07:15 O2 Flow Rate 6 10/21/24 07:33 Oxygen Flow Rate 6 10/20/24 23:41 BMI result Body Mass Index 30.0 Const: Other: Awake alert oriented x3 Resp: Other: Good aeration to bases with scattered expiratory wheezes noted Cardio: Other: No S4; positive S1-S2; no S3 murmurs rubs or gallops GI: Other: Soft nontender nondistended normoactive bowel sounds Extrem: Other: No edema DS: Data Data Completed and Pending Labs on day of discharge: Laboratory Results - last 24 hr 10/24/24 10/24/24 10/24/24 11:14 16:29 19:46 POC Glucose 374 H* 350 H* 301 H 10/25/24 07:17 POC Glucose 215 H Discharge Plan Discharge Anticipated Discharge Date/Time: 10/25/24 10:49 Patient Disposition: Home Health Service Discharge Diagnosis: Acute exacerbation of asthma Referrals: Tor Villela MD [Primary Care Provider] - 1 Week Discharge Medications: New glyburide 5 mg Tablet 10 mg PO BIDWM Qty: 60 0RF doxycycline hyclate 100 mg tablet 100 mg PO BID Qty: 14 0RF prednisone 20 mg tablet See Rx Instructions .Route .COMPLEX Qty: 18 0RF Rx Instructions: 20 mg orally; 3 tabs daily for 3 days, 2 tabs daily for 3 days, 1 tab daily for 3 days Continued metformin 500 mg tablet 500 mg PO BID Qty: 60 6RF (DME) FreeStyle Lite Strips Strip See Rx Instructions .ROUTE .MEDSUPPLY Qty: 150 11RF Rx Instructions: As directed four times a day Corlanor 7.5 mg tablet 7.5 mg PO BID Qty: 180 3RF albuterol sulfate 90 mcg/actuation aerosol powdr breath activated 2 inh inhalation Q4-6H PRN (Reason: shortness of breath or wheezing) Qty: 1 0RF acetaminophen [Tylenol Extra Strength] 500 mg tablet 1,000 mg PO QID PRN (Reason: fever or pain) Qty: 14 0RF fenofibrate 54 mg tablet 54 mg PO DAILY omega 8-ptz-crg-fish oil 300 mg (120 mg- 180mg)-1,000 mg capsule 1 cap PO TID insulin aspart U-100 100 unit/mL (3 mL) insulin pen See Protocol subcut TIDAC Protocol: Insulin Correction Scale Less than or equal to 110 ---- Give (units): 0 111 to 150 Give (units): 0 151 to 200 Give (units): 2 201 to 250 Give (units): 4 251 to 300 Give (units): 6 301 to 350 Give (units): 8 Greater than 350 Give (units): 10 Call MD if Blood Glucose > : 350 spironolactone 25 mg Tablet 12.5 mg PO DAILY Qty: 30 0RF Protocol: Hold for SBP< HOLD for SBP < : 90 sacubitril-valsartan [Entresto] 24-26 mg Tablet 1 tab PO BID Qty: 30 0RF Protocol: Hold for SBP< HOLD for SBP < : 90 furosemide 40 mg tablet 40 mg PO DAILY metoprolol succinate 25 mg tablet extended release 24 hr 12.5 mg PO DAILY Ozempic 0.25 mg or 0.5 mg (2 mg/3 mL) pen injector 0.5 mg subcut WE digoxin 250 mcg (0.25 mg) tablet 250 mcg PO DAILY Jardiance 25 mg tablet 25 mg PO DAILY (DME) nebulizers [AeroEclipse II Nebulizer] Misc See Rx Instructions .Route Qty: 1 0RF Rx Instructions: As directed cholecalciferol (vitamin D3) 25 mcg (1,000 unit) tablet 25 mcg PO DAILY sertraline 100 mg tablet 200 mg PO DAILY insulin glargine 100 unit/mL solution 40 unit subcut BEDTIME (DME) lancets [TRUEplus Lancets] 33 gauge misc See Rx Instructions .ROUTE .MEDSUPPLY Qty: 200 11RF Rx Instructions: Four times a day mirtazapine 45 mg tablet 45 mg PO BEDTIME hydroxyzine pamoate 50 mg capsule 50 mg PO BEDTIME PRN (Reason: Anxiety) omeprazole 40 mg capsule,delayed release(DR/EC) 40 mg PO DAILY@0630 (DME) pen needle, diabetic [Pentips Pen Needle] 32 gauge x 5/32 needle See Rx Instructions .ROUTE TID Qty: 50 Rx Instructions: As directed (DME) FreeStyle Garrick 2 [place] Misc See Rx Instructions .ROUTE .MEDSUPPLY Qty: 1 0RF Rx Instructions: As directed (DME) FreeStyle Garrick 2 Sensor Kit See Rx Instructions .ROUTE .MEDSUPPLY Qty: 2 11RF Rx Instructions: As directed every 2 weeks aspirin 81 mg tablet,delayed release (DR/EC) 81 mg PO DAILY carvedilol [Coreg] 6.25 mg tablet 6.25 mg PO BID Qty: 60 5RF Rx Instructions: must administer with a meal/food Discontinued azithromycin [Zithromax Z-Chepe] 250 mg tablet See Rx Instructions .ROUTE .COMPLEX Qty: 6 0RF Rx Instructions: take 500 mg today (day 1), then 250 mg for 4 days (days 2-5) Discharge Orders: Discharge Order (Routine); Ordered 10/25/24 Ordered By: Nic Avery Diet: Advance to usual diet Activity on Discharge: As tolerated Stand Alone Forms: Patient Portal Discharge page Print Language: Belarusian Care Plan Goals: Resume all meds as taken prior to the hospital. Glipizide 10 mg twice daily has been added to your regimen. You sugars were all remain elevated but will return to baseline when you complete the prednisone taper. Health Concerns: You have been given a course of prednisone; take as directed. You also have been given a course of doxycycline 100 mg twice daily for 7 days Plan of Treatment: Follow up with your PCP next available. [facility]NA will assist you in managing his sugars Assessment: See discharge summary
[2024-10-25 11:12] LABS: Glucose, Whole Blood 199 mg/dL (60-115)
--- NOTE | 2024-10-25 12:35 | W.MHC.F2F ---
Service Date Service Date: 10/25/24 Encounter Date of encounter: 10/25/24 Encounter: Acute hospitalization Reasons for Services Signs and symptoms assessed: Respiratory status and blood sugar Reason for shelter: diabetic teaching, medication management and teach disease management Homebound: Leaving the home is medically contraindicated at this time without the asist of a device and/or another person due th the listed conditions above and below. Reason homebound: unsteady gait / fall risk and unable to drive Certification: Based on the above findings, I certify that this patient is confined to the home and needs intermittent shelter care, physical therapy and/or speech therapy, or continues to need occupational therapy. The patient is under my care, and I have initiated the establishment of the plan of care. The patient will be followed by a physician who will periodically review the plan of care. Time Spent With Patient Time: Total time managing care of this patient today ____ minutes.
== END 2024-10-25 12:18 | disposition home health service (06) | DRG 202 ==
LOC: HO.ED 10-21 00:34 → HO.EDOVER 10-21 04:13 → HO.S3 10-21 07:14
PROVIDERS: Admitting Provider Student in an Organized Health Care Education/Training Program; Emergency Provider Internal Medicine; PCP Internal Medicine; Visit Provider Hospitalist
DX: J45.31 Mild persistent asthma with (acute) exacerbation (principal); J96.01 Acute respiratory failure with hypoxia; I13.0 Hypertensive heart and chronic kidney disease with heart failure and stage 1 through stage 4 chronic kidney disease, or unspecified chronic kidney disease; I50.22 Chronic systolic (congestive) heart failure; N17.9 Acute kidney failure, unspecified; I42.8 Other cardiomyopathies; N18.32 Chronic kidney disease, stage 3b; E11.22 Type 2 diabetes mellitus with diabetic chronic kidney disease; E11.65 Type 2 diabetes mellitus with hyperglycemia; Z20.822 Contact with and (suspected) exposure to COVID-19; Z95.810 Presence of automatic (implantable) cardiac defibrillator; Z79.4 Long term (current) use of insulin; Z79.82 Long term (current) use of aspirin; Z79.85 Long-term (current) use of injectable non-insulin antidiabetic drugs; Z79.899 Other long term (current) drug therapy
CPT/HCPCS: 0241U; 36415; 71045; 71046; 80048; 80053; 82010; 82803; 82947; 83880; 85025; 85027; 94640; 99285; J1644; J2919; J3475; J7120

== ENCOUNTER 2024-10-21 03:54 | Outpatient (BNV) | payer OTHER, SELFPAY | END 2024-10-23 10:05 | PROVIDERS: Admitting Provider Student in an Organized Health Care Education/Training Program; Emergency Provider Internal Medicine; PCP Internal Medicine; Visit Provider Radiology Diagnostic Radiology | DX: R06.02 Shortness of breath (principal) | CPT/HCPCS: 71046 ==

== ENCOUNTER → 2024-10-21 03:54 | Outpatient (BNV) | payer OTHER, SELFPAY | PROVIDERS: Admitting Provider Student in an Organized Health Care Education/Training Program; Emergency Provider Internal Medicine; Visit Provider Student in an Organized Health Care Education/Training Program | DX: N17.9 Acute kidney failure, unspecified (principal); E11.22 Type 2 diabetes mellitus with diabetic chronic kidney disease; N18.32 Chronic kidney disease, stage 3b; J45.901 Unspecified asthma with (acute) exacerbation | CPT/HCPCS: 99223; 99232; 99239; 99499; G0180 ==

== ENCOUNTER 2024-11-23 10:26 | Outpatient (REF) | payer OTHER, SELFPAY ==
[2024-11-23 10:38] LABS: MANUAL DIFF FLAG NO
[2024-11-23 10:56] LABS: Basophils Percent Auto 0.3 % (0-2); Eosinophils Absolute Auto 0.1 X10*3/uL (0.0-0.4); Eosinophils Percent Auto 1.5 % (0-4); Hemoglobin 14.5 g/dl (14.0-18.0); Imm Gran Abs Auto 0.06 X10*3/uL (0.00-0.03); Imm Gran Pct Auto 0.8 % (0.0-0.4); Lymphocytes Absolute Auto 1.5 X10*3/uL (1.2-4.9); Lymphocytes Percent Auto 20.7 % (20-40); Mean Corpuscular HGB Conc 34.5 g/dl (31.0-36.0); Mean Corpuscular Hemoglobin 28.5 pg (27.0-33.0); Mean Corpuscular Volume 82.7 fL (80.0-98.0); Mean Platelet Volume 10.4 fL (9.4-12.4); Monocytes Absolute Auto 0.4 X10*3/uL (0.1-1.2); Monocytes Percent Auto 5.8 % (2-11); Neutrophils Absolute Auto 5.2 x10*3/uL (2.0-8.3); Neutrophils Percent Auto 70.9 % (45-73); Platelet Count 231 X10*3/uL (160-400); Red Blood Count 5.08 X10*6/uL (4.60-5.80); Red Cell Distribution Width 13.1 % (11.0-16.0); White Blood Count 7.3 X10*3/uL (4.8-10.8)
--- OUTSIDE RECORDS SUMMARY | 2024-11-23 11:24 | XMS_ITS | Encounter Summary ---
Author Organization [employer] Address [address] [place] [address] Care Team Providers Care Telephone Interviewer Name Role Phone Tor Crews MD Primary Care Provide r Reason for Visit * Reason Comments Med Refill Encounter Details Date Type Department Care Team (Late st Contact Info) Description 12/19/2023 Refill [facility]S [address] [place], [place] [phone] Sinai Sesay MD [address] [place] [address] Social History Tobacco Use Types Packs/Day Years Used Date Smoking Tobacco: Some Days Cigarettes Passive Smoke Exposure: Current Smokeless Tobacco: Never Alcohol Use Standard Drinks/Week Comments Yes 0 (1 standard drink = 0.6 oz pur e alcohol) Depression Answer Date Recorded Patient Health Questionnaire-9 Score 4 03/04/2023 Housing Stability Answer Date Recorded What is your housing situation today? I have jessbrandon su 08/11/[address] you li ve. Do you have problems with any of the following? None of the above 08/11/2023 Food Insecurity Answer Date Recorded Within the past 12 months, y ou worried that your food would run out before you got money to buy more: Never True 08/11/2023 Within the past 12 months,th e food you bought just didn't last and you didn't have enough money to get more: Never True Transportation Answer Date Recorded In the past 12 months, has l ack of transportation kept you from medical appts, meetings, work or from getting things needed for daily living? No 08/11/2023 Utilities Answer Date Recorded In the past 12 months, has t he electric, gas, oil or water company threatened to shut off services in your home? No 08/11/2023 Depression Answer Date Recorded Patient Health Questionnaire-2 Score 1 03/04/2023 Sex and Gender Information Value Date Recorded Sex Assigned at Male 08/26/2022 10:22 AM EDT Legal Sex Male 10:22 AM EDT Gender Identity Male 08/26/2022 10:22 AM EDT Sexual Orientation Straight 08/26/2022 10 :22 AM EDT documented as of this encounter Plan of Treatment Upcoming Encounters Date Type Department Care Team (Late st Contact Info) Description 11/29/2024 10:00 AM EST Office Visit [facility] AD[facility] DENTAL [address] [place] [address] Kristen Perez 12/07/2024 11:15 AM EST Office Visit [facility] MEDICINE [address] [place] [address] Tor Crews MD [address] [place] [phone] documented as of this encounter Visit Diagnoses Not on filedocumented in this encounter Additional Health Concerns Assessment Noted Time PHQ-9 Depression Total Score: 4 03/04/20 23 2:58 PM EDT documented as of this encounter Care Teams Telephone Interviewer Relationship Specialty Start Date End Date Tor Crews MD [address] [place] [phone] PCP - General Internal Medicine 07/21/14 documented as of this encounter
--- OUTSIDE RECORDS SUMMARY | 2024-11-23 11:24 | XMS_ITS | Encounter Summary ---
Author Organization [employer] Address [address] [place] [address] Care Team Providers Care Trim Mounter Name Role Phone Tor Crews MD Primary Care Provide r Reason for Visit * Reason Comments Med Refill Encounter Details Date Type Department Care Team ([facility] st Contact Info) Description 08/07/2023 Refill [facility] MED[facility] [address] [place], [place] [phone] Tor Crews MD [address] [place], [place] [phone] Hypertriglyceridemia Social History Tobacco Use Types Packs/Day Years [...] Description 11/29/2024 10:00 AM EST Office Visit [facility] ADULT DENTAL [address] [place] [address] Kristen Perez 12/07/2024 11:15 AM EST Office Visit [facility] MED[facility] [address] [place] [address] Tor Crews MD [address] [place] [phone] documented as of this encounter Visit Diagnoses Diagnosis Hypertriglyceridemia Pure hyperglyceridemia documented in this encounter Additional Health Concerns Assessment Noted Time PHQ-9 Depression Total Score: 4 03/04/20 23 2:58 PM EDT documented as of this encounter Care Teams Trim Mounter Relationship Specialty Start Date End Date Tor Crews MD [address] [place] [phone] PCP - General Internal Medicine 07/21/14 documented as of this encounter
--- OUTSIDE RECORDS SUMMARY | 2024-11-23 11:24 | XMS_ITS | Patient Health Record ---
Author Organization [facility] Address [address] [place] [address] Care Team Providers Care Hair Blender Name Role Phone Megan Bañuelos MD, Tor Primary Care Provide r Unavailable Juan M Morel Unavailable [phone] ALLERGIES No Known Allergies REASON FOR REFERRAL [...] unspecified whether esophagitis present (K21.9) Active confirmed [id number] Problem Encounter for screening for malignant neoplasm of colon (Z12.11) Active confirmed [id number] Problem Diverticulosis of colon (K57.30) Active confirmed Diverticulosi s of colon (570567933) Problem Gastritis (K29.70) Active confirmed Gas tritis (7297840) Problem Gastroesophageal reflux (K21.9) Active confirmed Esophageal reflux finding (917357431) PLAN OF TREATMENT Pending Test Test Name Order Date Pathology 01/25/2022 Future Test Test Name Order Date UPPER GI ENDOSCOPY 10/09/2021 COLONOSCOPY 10/09/2021 Insurance Providers Payer Name Payer Address Payer Phone Subscriber Number Group Number Insured Name Patient Relationship to Insured Coverage Start Date Coverage End Date [facility] [address] [facility] [place] [phone] [id number] CARMINA LOMAX Self - patient is the insured MEDICAL (GENERAL) HISTORY Medical History History ICD Code GERD IDDM Hypertension Nonischemic cardiomyopathy-[place]---seen at [facility] in [place] for ? cardiac transplant, but not on active list Sleep apnea- cpap machine Depression CHF Hyperlipidemia CKD stage [address],CVA Surgical History Surgery Date(Month/Year) Pacemaker 2009
--- OUTSIDE RECORDS SUMMARY | 2024-11-23 11:25 | XMS_ITS | Encounter Summary ---
Author Organization [employer] Address [address] [facility] [address] [place] [address] Care Team Providers Care Janitorial Manager Name Role Phone Tor Crews MD Primary Care Provide r Reason for Visit * Reason Onset Date Comments Chart Prep 11/11/2024 Encounter Details Date Type Department Care Team ([facility] st Contact Info) Description 11/11/2024 Telephone [facility] MEDICINE [address] [place], [place] [phone] Tor Crews MD [address] [place], [place] [phone] Chart Prep Social History Tobacco Use Types Packs/Day Years Used Date Smoking Tobacco: Former Cigarettes Passive Smoke Exposure: Past Smokeless Tobacco: Never Alcohol Use Standard Drinks/Week Comments Yes 0 (1 standard drink = 0.6 oz pur e alcohol) Depression Answer Date Recorded Patient Health Questionnaire-9 Score 4 03/04/2023 Housing Stability Answer Date Recorded What is your housing situation today? I have jess su 03/23/[address] you li ve. Do you have problems with any of the following? None of the above 03/23/2024 Food Insecurity Answer Date Recorded Within the past 12 months, y ou worried that your food would run out before you got money to buy more: Never True 03/23/2024 Within the past 12 months,th e food you bought just didn't last and you didn't have enough money to get more: Never True Transportation Answer Date Recorded In the past 12 months, has l ack of transportation kept you from medical appts, meetings, work or from getting things needed for daily living? No 03/23/2024 Utilities Answer Date Recorded In the past 12 months, has t he electric, gas, oil or water company threatened to shut off services in your home? No 03/23/2024 Depression Answer Date Recorded Patient Health Questionnaire-2 Score 1 03/23/2024 Internet Access Answer Date Recorded Internet Access Q1 Yes 10/26/2024 Internet Access Q2 Not on file 10/26/2024 Sex and Gender Information Value Date Recorded Sex Assigned at Male 08/26/2022 10:22 AM EDT Legal Sex Male 10:22 AM EDT Gender Identity Male 08/26/2022 10:22 AM EDT Sexual Orientation Straight 08/26/2022 10 :22 AM EDT documented as of this encounter Miscellaneous Notes * Telephone Encounter - Beverley Hollis MA - 11/11/2024 2:47 PM EST Chart Prep Labs: not applicable Images: not applicable Vaccines due: Covid Due and Hep B Due Referrals: Not Applicable Screenings: Foot Exam and HIV screening Overdue care gaps: Glucose, Sbirt, and Oral Health Chart prep for upcoming appt with Dr.Esparza campbell. LB documented in this encounter Plan of Treatment Upcoming Encounters Date Type Department Care Team (Late st Contact Info) Description 11/29/2024 10:00 AM EST Office Visit [facility] ADULT DENTAL [address] [place] [phone] Kristen Perez 12/07/2024 11:15 AM EST Office Visit [facility] MEDICINE [address] [place] [phone] Tor Crews MD [address] [place] [phone] documented as of this encounter Visit Diagnoses Not on filedocumented in this encounter Additional Health Concerns Assessment Noted Time PHQ-9 Depression Total Score: 4 03/04/20 23 2:58 PM EDT documented as of this encounter Care Teams Janitorial Manager Relationship Specialty Start Date End Date Tor Crews MD [address] [place] [id number] PCP - General Internal Medicine 07/21/14 documented as of this encounter
--- OUTSIDE RECORDS SUMMARY | 2024-11-23 11:25 | XMS_ITS | Encounter Summary ---
Author Organization [facility] Address [address] [facility] [address] [place] [address] Phone Care Team Providers Care Retread Builder Name Role Phone Tor Guzman MD Primary Care Provider Derek ailable Encounter Details Date Type Department Care Team (Late st Contact Info) Description 11/10/2023 Office Communication [facility] [address] [place] [place] [address] Ko Gorman MD [address] [facility] [address] [place] [address] Social History Tobacco Use Types Packs/Day Years Used Date Smoking Tobacco: Never Smokeless Tobacco: Never Alcohol Use Standard Drinks/Week Comments Yes 0 (1 standard drink = 0.6 oz pure alcohol) Alcoholic Drinks/day: Occasional social drink Sex and Gender Information Value Date Recorded Sex Assigned at Not on file Legal Sex Male 4:43 PM EST Gender Identity Not on file Sexual Orientation Not on file documented as of this encounter Miscellaneous Notes * Telephone Encounter - Nelsy Peng - 11/11/2023 8:42 AM EST Patient following up with Dr. Guzmán per 08/28 cancellation, and follow up call when patient hung up. He stated he is not coming to [facility] * Telephone Encounter - Ko Gorman MD - 11/10/2023 8:42 PM EST Cathy appt with me in 4-6 wks documented in this encounter Plan of Treatment Not on file documented as of this encounter Visit Diagnoses Not on filedocumented in this encounter Care Teams Retread Builder Relationship Specialty Start Date End Date Tor Guzman MD PCP - General 11/06/20 documented as of this encounter
--- OUTSIDE RECORDS SUMMARY | 2024-11-23 11:25 | XMS_ITS | Encounter Summary ---
Author Organization [employer] Address [address] [facility] [address] [place] [address] Care Team Providers Care Tool Drawing Checker Name Role Phone Tor Crews MD Primary Care Provide r Reason for Visit * Reason Comments Transition Of Care (Tcm) HDF- scheduled and SDOH screening completed on 03/23/2024 Encounter Details Date Type Department Care Team ([facility] st Contact Info) Description 10/26/2024 Patient Outreach [facility] MEDICINE [address] [place], [place] [phone] Tor Crews MD [address] [place], [place] [phone] Transition Of Care (Tcm) (HDF- scheduled and SDOH screening completed on 03/23/2024) Social History Tobacco Use Types Packs/Day Years [...] as of this encounter Miscellaneous Notes * Significant Event - Traci Kaye - 10/26/2024 9:51 AM EST 10/26/24 0950 Hospital Discharges and Admission for [facility] Type of Visit Hospital Admission Date of Admission/Visit 10/21/24 Date of Discharge 10/25/24 Facility [facility] Diagnosis Asthma exacerbation, Acute kidney injury superimposed on stage 3b chronic kidney disease,Type 2 diabetes mellitus with chronic kidney disease Disposition Discharged with Home Care Services Follow-Up Actions Follow-Up Needed Provider appointment Follow-Up Outcome Spoke to Patient;Booked Appointment Initial Contact Date 10/26/24 MANUEL Scott placed outbound call to patient for HDF outreach. Patient's name and were confirmed. Patient educated on the importance of follow up with provider following inpatient admission. Patient offered an HDF appt. Patient is agreeable to an appointment and has been scheduled for 11/18/2024t 1:30PM with . Insurance verified prior to scheduling. Patient advised to bring to appointment a photo id and insurance card. Patient provided with education on contacting the Health Center with any questions or concerns prior to the scheduled appointment. Patient educated on extended clinic hours on Mondays and Wednesdays, and Walk-In Urgent Care Located in [facility]. Patient provided with after-hours line for [facility], , which offer night time triage service and option to transfer to cushion worker provider if needed. CC scanned discharge summary into patient's chart. Biggestconcern for appointment at this time is patient would like to know why he was diagnosed with asthmaif he never had asthma before Appropriate screenings completed in anticipation of appointment. documented in this encounter Plan of Treatment Upcoming Encounters Date Type Department Care Team (Late st Contact Info) Description 11/29/2024 10:00 AM EST Office Visit [facility] ADULT DENTAL [address] [place] [phone] Kristen Perez 12/07/2024 11:15 AM EST Office Visit [facility] MEDICINE [address] [place] [address] Tor Crews MD [address] [place] [phone] documented as of this encounter Visit Diagnoses Not on filedocumented in this encounter Additional Health Concerns Assessment Noted Time PHQ-9 Depression Total Score: 4 03/04/20 23 2:58 PM EDT documented as of this encounter Care Teams Tool Drawing Checker Relationship Specialty Start Date End Date Tor Crews MD [address] [place] [phone] PCP - General Internal Medicine 07/21/14 documented as of this encounter
--- OUTSIDE RECORDS SUMMARY | 2024-11-23 11:25 | XMS_ITS | Clinical Summary ---
Author Organization [employer] Address [address] [place] [address] Care Team Providers Care Dry Wall Applicator Name Role Phone Tor Crews MD Primary Care Provide r Allergies No known active allergies Medications cholecalciferol (Vitamin D-3) 25 MCG tabletIndication s:Low vitamin D level Take 1 tablet (25 mcg) by mouth in the morning. 90 tablet 3 022 Active albuterol (ProAir HFA) 108 (90 Base) MCG/ACT inhaler Inhale 2 puffs every 4 (four) hours if needed. 018 Active EPINEPHrine (Epipen) 0.3 MG/0.3ML injection syringe Inject into the shoulder, thigh, or buttocks. 022 Active hydrOXYzine pamoate (Vistaril) 50 MG capsule Take 1 capsule by mouth if needed at bedtime. 021 Active Corlanor 7.5 MG tablet TAKE 1 TABLET BY MOUTH TWICE DAILY IN THE MORNING AND IN THE EVENING 023 Active metFORMIN (Glucophage) 500 MG tablet Take 500 mg by mouth 2 times daily. Active mirtazapine (Remeron) 45 MG tablet Take 45 mg by mouth at bedtime. 023 Active oxyCODONE (Roxicodone) 5 MG immediate release tablet Take 1 tablet by mouth every 8 (eight) hours. Active sertraline (Zoloft) 100 MG tablet TAKE 2 TABLETS BY MOUTH EVERY DAY AT BEDTIME Diagnosis Unavailable 021 Active SM All Day Allergy Relief 10 MG tabletIndication s:Mixed hyperlipidemia TAKE 1 TABLET BY MOUTH EVERY DAY 90 tablet 023 Active empagliflozin (Jardiance) 25 MGIndications:Ty pe 2 diabetes mellitus without complication, unspecified whether snf insulin use ([facility]) take 1 tablet by oral route every day in the morning 90 tablet 1 023 Active atorvastatin (Lipitor) 40 MG tablet TAKE 1 TABLET BY MOUTH AT BEDTIME 90 tablet 3 023 Active Alcohol Swabs (Alcohol Prep) 70 % pads USE TWICE DAILY 100 each 11 023 Active UltiCare Insulin Syringe 30G X 1/2 0.5 ML misc USE DIRECTED ONCE DAILY 90 each 3 023 Active Pentips 32G X 4 MM misc USE DIRECTED WITH NOVOLOG FLEXPEN 100 each 3 024 Active aspirin (Aspirin Low Dose) 81 MG EC tabletIndication s:Cardiomyopathy , unspecified type ([facility]) TAKE 1 TABLET BY MOUTH EVERY EVENING 90 tablet 3 024 Active omega-3 (Fish Oil) 1000 MG capsuleIndicatio ns:Mixed hyperlipidemia TAKE 1 CAPSULE BY MOUTH THREE TIMES DAILY 90 capsule 5 024 Active digoxin (Lanoxin) 250 MCG tab;et Take 250 mcg by mouth in the morning. 024 Active fluticasone (Flonase) 50 MCG/ACT nasal sprayIndications :Seasonal allergies INSTILL 2 SPRAYS IN EACH NOSTRIL ONCE DAILY. SHAKE GENTLY. PRIME BEFORE FIRST USE. CLEAN DIRECTED 16 g 3 024 Active NovoLOG FLEXPEN 100 UNIT/ML penIndications:T ype 2 diabetes mellitus without complication, with long-term current use of insulin ([facility]) INJECT SUBCUTANEOUSLY PER SLIDING SCALE: BLOOD SUGAR < 150 = DO NOT USE, 151-200 = 3 UNITS, 201-250 = 5U, 251-300 = 8U, 301-350 = 10U, 351-400 = 12U, > 400 = 15U AND CALL DOCTOR 15 mL 3 024 Active omeprazole (PriLOSEC) [address] capsuleIndicatio ns:Gastroesophag eal reflux disease without esophagitis TAKE 1 CAPSULE BY MOUTH EVERY DAY BEFORE MEALS 90 capsule 2 024 Active metoprolol succinate XL (Toprol-XL) 25 MG 24 hr tablet Take 25 mg by mouth Once per day. 1/2 tab daily Active furosemide (Lasix) 40 MG tablet Take 40 mg by mouth in the morning. 024 Active FREESTYLE LITE test stripIndications :Type 2 diabetes mellitus with stage 3b chronic kidney disease, with long-term current use of insulin ([facility]) Use to test blood sugar 3 times daily 100 each 12 024 2024 Active Lancets miscIndications: Type 2 diabetes mellitus with stage 3b chronic kidney disease, with long-term current use of insulin ([facility]) Use to test blood sugar 3 times daily 100 each 024 Active Blood Glucose Monitoring Suppl (FreeStyle [place] Lite) w/Device kitIndications:T ype 2 diabetes mellitus with stage 3b chronic kidney disease, with long-term current use of insulin ([facility]) Use to test blood sugar 3 times daily 1 kit 024 Active predniSONE (Deltasone) 20 MG tabletIndication s:Viral URI,Mild intermittent asthma with acute exacerbation 2 tabs po daily for 5 days 10 tablet 024 Active Vaporizer miscIndications: Viral URI,Mild intermittent asthma with acute exacerbation Dx asthma, viral uri 1 each 024 Active fenofibrate (Tricor) 54 MG tabletIndication s:Hypertriglycer idemia TAKE 1 TABLET BY MOUTH EVERY MORNING 90 tablet 1 024 Active albuterol (2.5 MG/3ML) 0.083% nebulizer solution Take 3 mL (2.5 mg) by nebulization every 8 (eight) hours if needed for wheezing. 75 mL 2 024 Active spironolactone (Aldactone) 25 MG tablet TAKE 1/2 TABLET BY MOUTH EVERY MORNING 45 tablet 024 Active Lantus 100 UNIT/ML injectionIndicat ions:Type 2 diabetes mellitus without complication, with long-term current use of insulin ([facility]) INJECT 46 UNITS SUBCUTANEOUSLY AT BEDTIME 15 mL 3 025 Active Entresto 24-26 MG tablet Take 1 tablet by mouth 2 times daily. 025 Active semaglutide (Ozempic) 2 MG/1.5ML solution pen-injectorIndi cations:Type 2 diabetes mellitus with stage 3b chronic kidney disease, with long-term current use of insulin ([facility]) Inject 1 mg under the skin 1 (one) time per week. 2 each 12 Active glyBURIDE (Diabeta) 5 MG tabletIndication s:Type 2 diabetes mellitus with stage 3b chronic kidney disease, with long-term current use of insulin (CMS/HCC) Take 1 tablet (5 mg) by mouth 2 times daily. 60 tablet 1 Active triamcinolone (Kenalog) 0.1 % cream Apply topically if needed in the morning and at bedtime (affected area). 30 g 2 Active Lantus 100 UNIT/ML injectionIndicat ions:Type 2 diabetes mellitus without complication, with long-term current use of insulin (CMS/HCC) INJECT 46 UNITS SUBCUTANEOUSLY AT BEDTIME 10 mL 3 024 2024 Discontinued semaglutide (Ozempic) 2 MG/1.5ML solution pen-injectorIndi cations:Type 2 diabetes mellitus without complication, with long-term current use of insulin (CMS/HCC) Inject 0.5 mg under the skin 1 (one) time per week. 1 each 1 024 2024 Discontinued(M ed list cleanup (will not trigger notification to Pharmacy)) glyBURIDE (Diabeta) 5 MG tablet Take 2 tablets by mouth 2 times daily. 024 2024 Discontinued(R eorder (will not trigger notification to Pharmacy)) Ozempic, 0.25 or 0.5 MG/DOSE, 2 MG/3ML solution pen-injector Inject 0.5 mg under the skin every 7 (seven) days. 025 2024 Discontinued(D ose adjustment) Active Problems Problem Noted Date Diagnosed Date Hospital discharge follow-up 11/18/2024 Assessment & Plan (11/18/2024 1:37 PM EST): Patient is here for a HDF He was admitted to [facility] from 10/21-10/25/2024 After he presented with worsening dyspnea and wheezing for 2 weeks. CXR showed no infiltrates. BMP revealed worsening CKD and hyperglycemia (374 mg/dL). Started on steroids and nebulizer, admitted for further workup. Wheezing persisted, steroids increased to every 6 hours. Productive cough was treated with doxycycline. Hyperglycemia was challenging to manage while in the Hospital and he was started on a sulfonylurea. Mild intermittent asthma without complication Assessment & Plan (11/18/2024 1:38 PM EST): Recent exacerbation requiring hospitalization Assessment & Plan (10/14/2024 10:04 AM EST): Expiratory wheezing with scattered rhonchi. Likely asthma exacerbation due to underlying URI. -prescribed azithromycin (Zithromax) 250 MG tablet, BID for first day and then once daily for 5 days. -prescribed predniSONE (Deltasone) 20 MG tablet, taper. -ER precautions discussed. -Seek medical attention for worsening symptoms. Viral URI 10/14/2024 Assessment & Plan (10/14/2024 9:59 AM EST): COVID, Flu, and Strep negative. -No evidence of respiratory distress. Symptoms mild. -No evidence of dehydration. -Supportive care advised. -Isolation recommendations discussed. -ER precautions discussed. -Seek medical attention for worsening symptoms. Laceration of left ring fing er without foreign body without damage to nail 10/14/2024 Assessment & Plan (10/14/2024 10:10 AM EST): Superficial laceration. See image in chart. -Cleaned and used [place] cary to close laceration. -ER precautions discussed. -Seek medical attention for worsening symptoms. Laceration of left index fin glory w/o foreign body w/o damage to nail, initial encounter 10/14/2024 Assessment & Plan (10/14/2024 10:09 AM EST): Superficial laceration. See image in chart. -Encouraged keeping wound cleaned and covered. -Supportive care discussed. -ER precautions discussed. -Seek medical attention for worsening symptoms. Right foot pain 07/27/2024 Assessment & Plan (07/27/2024 3:43 PM EDT): Patient with c/o right foot pain for several weeks. On exam there is tenderness to palpation underneath his right 2 MTT joint, no redness, no swelling, no palpable masses. Plan: Podiatry evaluation,plain x-ray Implantable cardioverter-defibrillator lead fail ure 03/23/2024 Assessment & Plan (03/23/2024 11:08 AM EDT): Patient under the care of Dr. Nielson, he is awaiting this to be changed, pt tells me he is awaiting a phone call Onychomycosis 11/25/2023 Assessment & Plan (11/25/2023 12:06 PM EST): Right great toe nail start Terbinafine 250 mg po daily x 3 months Syncope 08/21/2023 Assessment & Plan (08/21/2023 2:35 PM EDT): Pt here for a HDF after a recent admission to [facility] for a syncopal episode. Pt presented to the emergency department after a fall at home.. Patient states while he was getting up to go to the bathroom, he got dizzy/lightheaded and passed out. Patient's saw him lying on the floor. He was passed out for about 10 seconds. No rhythmic jerking movement of extremities prior to passing out. Patient stated has been having loose stools, 5-6 episodes on the day of presentation. No vomiting. Patient also stated he had been having chest discomfort at rest that has been ongoing for the last 1 week. In the emergency department, orthostatic vital signs noted to be positive and Cardiology was consulted who requested admission. Patient was treated for orthostatic hypotension with syncope with IV fluids and his home medicaitons were decreased. doses of Carvedilol, Enteresto and Spironoloactone. Followed by electric freight car operator who recommended to keep all his medications but in a lower dose. repeated Orthostatic vitals were negative prior to discharge. Pt feeling much better with the adjustment in his medications. Alcohol use 07/15/2023 Assessment & Plan (07/15/2023 3:31 PM EDT): Patient's mentioned that he drinks heavily 3 to 4 days a week, sometimes up to 18 cans of beer in one day. She reports instances of having to take him out of places due to alcohol intoxication. Patient minimizes this, insists that if he wants to stop drinking he can do that on his own, refuses help or referrals to our AUD provider. I had a detailed conversation with patient and his partners and let them know that if he changes his mind he should reach out to us. Discussed with him the risk that he is putting himself given his underlying medical conditions and heavy drinking could result in worsening heart failure and liver damage. Pt verbalizes understanding Extruded tooth 07/10/2023 Periodontal disease 07/10/2023 Primary osteoarthritis of right knee 05/13/2023 Assessment & Plan (09/21/2024 12:59 PM EST): Pt here for a follow up He was initially seen in the ER 08/22/2022. Pt reported that while he was lifting his laundry his right knee gave way, he twisted his knee since that moment he developed persistent pain, swelling and difficulty walking, also his knee gives way when he walks, he has been using a cane. X-ray in the ER showed effusion but no bony abnormality Unable to do MRI of right knee due to Pace maker Pt was last seen by Ortho 09/13/2024 received a steroid injection. Assessment & Plan (05/13/2023 9:52 AM EDT): Pt here for a follow up He was initially seen in the ER 08/22/2022. Pt reported that while he was lifting his laundry his right knee gave way, he twisted his knee since that moment he developed persistent pain, swelling and difficulty walking, also his knee gives way when he walks, he has been using a cane. X-ray in the ER showed effusion but no bony abnormality Unable to do MRI of right knee due to Pace maker Pt was referred to Ortho According to RN notes: Pt was seen last at ortho on 02/27 for for injection of??methylPREDNISolone acetate [DEPO-MedroL] ??40 mg. They stated, he patient had a cortisone injection on 09/26/2022. He states the injection gave him relief. ?? Pt was referred to PT by Destini Champion with Dx of R knee internal derangement on 11/08/22 and discharged on 01/22/23. He was then re-referred on 03/11/23 for unspecified R knee internal derangement. Pt had PT scheduled for 04/04 at 11am. Records requested Today pt tells me he is doing great in terms of his knee and does not need anything else. 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 Personal goal of weight loss discussedPatient has comorbidity of: DM Dietary Recommendations: Fruits, vegetables, whole grains, protein foods, and fat-free or low-fat dairy products are healthy choices. Eat different types of protein foods in your diet. This can include seafood, lean meats, poultry, beans, peas, lentils, nuts, seeds, soy products, and eggs. Limit foods and beverages higher in added sugars, saturated fat, and sodium. Exercise Recommendations: At least 150 minutes of moderate-intensity physical activity per week, or an equivalent combination of moderate- and vigorous-intensity activity Assessment & Plan (03/04/2023 3:08 PM EDT): Patient has been counseled and educated about diet and exercise. Personal goal of weight loss discussedPatient has comorbidity of: DM Other male erectile dysfunction 02/25/2023 Assessment & Plan (05/13/2023 9:00 AM EDT): Testosterone free and total to r/o hypogonadism 08/16/2015 Normal I asked him to discuss with Dr. Nielson regarding medications such as Viagra. Assessment & Plan (03/04/2023 3:02 PM EDT): Testosterone free and total to r/o hypogonadism 08/16/2015 Normal I asked him to discuss with Dr. Nielson regarding medications such as Viagra. Preventative health care 02/25/2023 Assessment & Plan (05/13/2023 8:59 AM EDT): Colonoscopy: January 25/2022 Dr carreon , diverticulosis and hemorrhoids. 10 year follow up recommended Assessment & Plan (03/04/2023 3:06 PM EDT): Colonoscopy: January 25/2022 Dr carreon , diverticulosis and hemorrhoids. 10 year follow up recommended Stress incontinence of urine 11/01/2022 Assessment & Plan (05/13/2023 8:56 AM EDT): Referred to Urology, pt missed the appointment Pt needs diapers Diverticulosis of colon 09/11/2022 Assessment & Plan (03/04/2023 3:02 PM EDT): Seen on colonoscopy 01/25/2022 Chronic systolic heart failure 07/31/2017 Assessment & Plan (09/21/2024 1:02 PM EST): Patient is here for a f/u He has non-ischemic cardiomyopathy diagnosed in 2008 (etiology ? NANO ? ETOH relate ? Pt gives a Hx of over 20 years of very heavy drinking. Basic blood work to r/o other etiologies: TSH 06/09/2013 was wnl, , Lyme titers were negative, HIV (neg 12/2012 at [facility]) , SAMEER (neg 01/03/2013 at [facility] ) , ADRIÁN level was normal. Pt is s/p ICD placement in 2008 ([facility]) Follows at the HF clinic , last seen 07/2022 Dr. Nielson recommended to Continue current neurohormonal modulation with Entresto, Daily weight monitoring and avoidance of salt loading . Continue aggressive blood pressure control. Encouraged to continue to participate in physical activity as tolerated and participate in weight loss program. He has done extremely well with medical management despite no UTILITY DRIVER. He was advised to continue to follow at [facility] for heart transplant evaluation.on annual basis. Last seen 07/14/2024 He was last seen by Dr Nielson 02/25/2024 He is on: Toprol X: 12.5 mg One tablet Daily Entresto 24-26 mg BID And Lasix 40 mg once Daily Had stress test at [facility] 09/14/[address] Rich ECHO 08/05/2024 showed a normal EF improved from previous one. Assessment & Plan (07/27/2024 11:44 AM EDT): Patient is here for a f/u He has non-ischemic cardiomyopathy diagnosed in 2008 (etiology ? NANO ? ETOH relate ? Pt gives a Hx of over 20 years of very heavy drinking. Basic blood work to r/o other etiologies: TSH 06/09/2013 was wnl, , Lyme titers were negative, HIV (neg 12/2012 at [facility]) , SAMEER (neg 01/03/2013 at [facility] ) , ADRIÁN level was normal. Pt is s/p ICD placement in 2008 ([facility]) Follows at the HF clinic , last seen 07/2022 Heart failure with reduced ejection fraction with much improved LV ejection fraction 40-45% with much improved symptoms with NYHA class [address] Nielson recommended to Continue current neurohormonal modulation with Entresto, Daily weight monitoring and avoidance of salt loading . Continue aggressive blood pressure control. Encouraged to continue to participate in physical activity as tolerated and participate in weight loss program. He has done extremely well with medical management despite no UTILITY DRIVER. He was advised to continue to follow at [facility] for heart transplant evaluation.on annual basis. Last seen 07/14/2024 He was last seen by Dr Nielson 02/25/2024 His Carvedilol was replaced with Toprol X: 12.5 mg One tablet Daily His Entresto was lowered to 24-26 mg BID His Lasix was lowered to 40 mg once Daily by Dr Rich at [facility] Assessment & Plan (03/23/2024 11:09 AM EDT): Patient is here for a f/u He has non-ischemic cardiomyopathy diagnosed in 2008 (etiology ? NANO ? ETOH relate ? Pt gives a Hx of over 20 years of very heavy drinking. Basic blood work to r/o other etiologies: TSH 06/09/2013 was wnl, , Lyme titers were negative, HIV (neg 12/2012 at [facility]) , SAMEER (neg 01/03/2013 at [facility] ) , ADRIÁN level was normal. Pt is s/p ICD placement in 2008 ([employer]) Follows at the HF clinic , last seen 07/2022 Heart failure with reduced ejection fraction with much improved LV ejection fraction 40-45% with much improved symptoms with NYHA class [address] Nielson recommended to Continue current neurohormonal modulation with Entresto, carvedilol, Jardiance, spironolactone and Corlanor therapy. Continue current diuretic regimen. Daily weight monitoring and avoidance of salt loading . Continue aggressive blood pressure control. Encouraged to continue to participate in physical activity as tolerated and participate in weight loss program. He has done extremely well with medical management despite no UTILITY DRIVER. He was advised to continue to follow with Dr Rivas at [facility] for heart transplant evaluation.on annual basis. He was last seen by Dr Nielson 02/25/2024 Assessment & Plan (11/25/2023 12:04 PM EST): Patient is here for a f/u He has non-ischemic cardiomyopathy diagnosed in 2008 (etiology ? NANO ? ETOH relate ? Pt gives a Hx of over 20 years of very heavy drinking. Basic blood work to r/o other etiologies: TSH 06/09/2013 was wnl, , Lyme titers were negative, HIV (neg 12/2012 at [facility]) , SAMEER (neg 01/03/2013 at [facility] ) , ADRIÁN level was normal. Pt is s/p ICD placement in 2008 ([employer]) Follows at the HF clinic , last seen 07/2022 Heart failure with reduced ejection fraction with much improved LV ejection fraction 40-45% with much improved symptoms with NYHA class [address] Nielson recommended to Continue current neurohormonal modulation with Entresto, carvedilol, Jardiance, spironolactone and Corlanor therapy. Continue current diuretic regimen. Daily weight monitoring and avoidance of salt loading . Continue aggressive blood pressure control. Encouraged to continue to participate in physical activity as tolerated and participate in weight loss program. He has done extremely well with medical management despite no UTILITY DRIVER. Dr Nielson recommended Follow-up echocardiogram in 1 month's time. He was advised to continue to follow with Dr Rivas at [facility] for heart transplant evaluation.on annual basis. He was last seen 10/2023 Assessment & Plan (05/13/2023 9:40 AM EDT): Patient is here for a f/u He has non-ischemic cardiomyopathy diagnosed in 2008 (etiology ? NANO ? ETOH relate ? Pt gives a Hx of over 20 years of very heavy drinking. Basic blood work to r/o other etiologies: TSH 06/09/2013 was wnl, , Lyme titers were negative, HIV (neg 12/2012 at [facility]) , SAMEER (neg 01/03/2013 at [facility] ) , ADRIÁN level was normal. Pt is s/p ICD placement in 2008 ([employer]) Follows at the HF clinic , last seen 07/2022 Heart failure with reduced ejection fraction with much improved LV ejection fraction 40-45% with much improved symptoms with NYHA class 1 symptoms. Last seen by Dr. Nielson 05/12/2023 He was advised to continue to follow with Dr Rivas at [facility] for heart transplant evaluation.on annual basis. Dr. Nielson recommended to Continue current neurohormonal modulation with Entresto, carvedilol, Jardiance, spironolactone and Corlanor therapy. Continue current diuretic regimen. Daily weight monitoring and avoidance of salt loading . Continue aggressive blood pressure control. Encouraged to continue to participate in physical activity as tolerated and participate in weight loss program. He has done extremely well with medical management despite no UTILITY DRIVER. Dr Nielson recommended Follow-up echocardiogram in 1 month's time. Assessment & Plan (03/04/2023 3:01 PM EDT): Patient is here for a f/u He has non-ischemic cardiomyopathy diagnosed in 2008 (etiology ? NANO ? ETOH relate ? Pt gives a Hx of over 20 years of very heavy drinking. Basic blood work to r/o other etiologies: TSH 06/09/2013 was wnl, , Lyme titers were negative, HIV (neg 12/2012 at [facility]) , SAMEER (neg 01/03/2013 at [facility] ) , ADRIÁN level was normal. last EF 20-25% 2017 Pt is s/p ICD placement in 2008 ([employer]) Follows at the HF clinic , last seen 07/2022 Pt tells me he has a f/u with Dr. Nielson as well He was advised to continue to keep appointment with Dr Rivas at [facility] for heart transplant evaluation. CKD stage 3 secondary to diabetes 12/26/2015 Assessment & Plan (11/18/2024 1:39 PM EST): Under the care of Nephrology, last seen 09/03/2024 Dr. Chad campbell client technologies analyst Lab Results Component Value Date GLUCOSE 340 (H) 10/16/2024 NA 137 10/16/2024 K 3.8 10/16/2024 CO2 20 (L) 10/16/2024 CL 107 10/16/2024 BUN 30 (H) 10/16/2024 CREATININE 1.65 (H) 10/16/2024 Will repeat Assessment & Plan (09/21/2024 12:58 PM EST): Under the care of Nephrology, last seen 09/03/2024 Dr. Chad campbell client technologies analyst Assessment & Plan (07/27/2024 11:47 AM EDT): Under the care of Nephrology, last seen 03/05/2024 Dr. Chad campbell client technologies analyst Assessment & Plan (03/23/2024 11:01 AM EDT): Under the care of Nephrology, last seen 03/05/2024 Dr. Chad campbell client technologies analyst Assessment & Plan (11/25/2023 12:08 PM EST): Under the care of Nephrology, last seen 07/16/2023. Dr. Chad campbell client technologies analyst Assessment & Plan (06/10/2023 9:25 AM EDT): Under the care of Nephrology, last seen 12/2022. I sent a message via [employer] to Dr. Chad campbell client technologies analyst letting him know I am starting patient on fenofibrate Assessment & Plan (05/13/2023 8:55 AM EDT): Under the care of Nephrology Assessment & Plan (03/04/2023 3:02 PM EDT): Under the care of Nephrology Essential hypertension 10/26/2015 Assessment & Plan (11/18/2024 1:38 PM EST): Here for a f/u BP controlled on Metoprolol ER 12.5 mg daily, Entresto 24/26 mg twice a day and Spironolactone 12.5 mg daily, Furosemide 40 mg po daily l I have recommended: to continue with current medical regimen. Most recent BMP Lab Results Component Value Date NA 137 10/16/2024 NA 135 07/20/2024 K 3.8 10/16/2024 K 4.0 07/20/2024 CL 107 10/16/2024 CL 106 07/20/2024 BUN 30 (H) 10/16/2024 BUN 23 (H) 07/20/2024 CREATININE 1.65 (H) 10/16/2024 CREATININE 1.44 (H) 07/20/2024 Will repeat today patient has advised to adhere to a low sodium diet, encouraged about medication compliance, counseled about weight loss. Assessment & Plan (09/21/2024 1:02 PM EST): Here for a f/u BP controlled on Metoprolol ER 12.5 mg daily, Entresto 24/26 mg twice a day and Spironolactone 12.5 mg daily, Furosemide 40 mg po daily l I have recommended: to continue with current medical regimen. Lytes Bun and Cr 07/20/2024 showed an elevated Cr 1.44 patient has advised to adhere to a low sodium diet, encouraged about medication compliance, counseled about weight loss. Assessment & Plan (07/27/2024 11:46 AM EDT): Here for a f/u BP controlled on Metoprolol ER 12.5 mg daily, Entresto 24/26 mg twice a day and Spironolactone 12.5 mg daily, Furosemide 40 mg po daily l I have recommended: to continue with current medical regimen. Lytes Bun and Cr 07/20/2024 showed an elevated Cr 1.44 patient has advised to adhere to a low sodium diet, encouraged about medication compliance, counseled about weight loss. Assessment & Plan (03/23/2024 11:00 AM EDT): Here for a f/u BP controlled on Carvedilol 12.5 mg bid, Entresto 24/26 mg twice a day and Spironolactone 12.5 mg daily, Furosemide 40 mg po daily l I have recommended: to continue with current medical regimen. Lytes Bun and Cr 01/2024 showed an elevated Cr 1.54 patient has advised to adhere to a low sodium diet, encouraged about medication compliance, counseled about weight loss. Assessment & Plan (11/25/2023 11:59 AM EST): Here for a f/u BP controlled on Carvedilol 12.5 mg bid, Entresto 24/26 mg twice a day and Spironolactone 12.5 mg daily, Furosemide 40 mg po daily l I have recommended: to continue with current medical regimen. Lytes Bun and Cr 09/09/2023 showed an elevated Cr 1.79 patient has advised to adhere to a low sodium diet, encouraged about medication compliance, counseled about weight loss. Assessment & Plan (08/21/2023 2:34 PM EDT): Here for a f/u BP controlled on Carvedilol 12.5 mg bid, Entresto 24/26 mg twice a day and Spironolactone 12.5 mg daily, Furosemide 40 mg po daily l I have recommended: to continue with current medical regimen. Lytes Bun and Cr 07/10/2023 showed an elevated Cr 2.03. Will repeat patient has advised to adhere to a low sodium diet, encouraged about medication compliance, counseled about weight loss. Assessment & Plan (05/13/2023 8:51 AM EDT): Here for a f/u BP controlled on Entresto 49/51 BID, spironolactone 25 mg 1/2 tab po daily, Coreg 25 mg 2 tabs po BID , Furosemide 80mg po daily Given adequate blood pressure control I have recommended: to continue with current medical regimen. Lytes Bun and Cr 02/05/2023 showed an elevated Cr 1.34 patient has advised to adhere to a low sodium diet, encouraged about medication compliance, counseled about weight loss. Assessment & Plan (03/04/2023 3:02 PM EDT): Here for a f/u BP controlled on Entresto 49/51 BID, spironolactone 25 mg 1/2 tab po daily, Coreg 25 mg 2 tabs po BID , Furosemide 80mg po daily Given adequate blood pressure control I have recommended: to continue with current medical regimen. Lytes Bun and Cr 02/05/2023 showed an elevated Cr 1.34 patient has advised to adhere to a low sodium diet, encouraged about medication compliance, counseled about weight loss. Hypertriglyceridemia 10/26/2015 Assessment & Plan (08/21/2023 2:30 PM EDT): Here for a f/u Most recent lipid profile from: 06/04/2023 shows a total cholesterol of: 192 triglycerides of: 1,078 HDL of: 31 and LDL of: Unable to calculate Pt's tells me he overeats fried chicken and fried food in general as well as eats a lot od cheese He was on Atorvastatin 40 mg po daily and Fish Oil capsules Last visit I DC Atorvastatin and started Fenofibrate Insurance would not cover the brand name. Last visit we substituted for generic Follow up with me in 3 months. We might re-introduce Atorvastatin after triglycerides are at a more acceptable range. counseled and educated about diet and exercise, Patient encouraged to come up with a personal goal for weight loss. Will repeat Lipid profile Assessment & Plan (07/15/2023 3:28 PM EDT): Here for a f/u Most recent lipid profile from: 06/04/2023 shows a total cholesterol of: 192 triglycerides of: 1,078 HDL of: 31 and LDL of: Unable to calculate Pt's tells me he overeats fried chicken and fried food in general as well as eats a lot od cheese He was on Atorvastatin 40 mg po daily and Fish Oil capsules Last visit I DC Atorvastatin and started Fenofibrate Insurance would not cover the brand name. Today we substituted for generic Follow up with me in 1 month. We might re-introduce Atorvastatin after triglycerides are at a more acceptable range. counseled and educated about diet and exercise, Patient encouraged to come up with a personal goal for weight loss. Will repeat Lipid profile in 1 month, prior to his next visit with me Assessment & Plan (06/10/2023 9:19 AM EDT): Here for a f/u Most recent lipid profile from: 06/04/2023 shows a total cholesterol of: 192 triglycerides of: 1,078 HDL of: 31 and LDL of: Unable to calculate Currently on Atorvastatin 40 mg po daily , Pt reports compliance ( Has a medbox ( He is also on Fish Oil capsules Plan: Discussed lifestyle changes, counseled about low fat low cholesterol diet, Referred to Bag Maker. RENITA Atorvastatin . Start Fenofibrate Follow up with me in 1 month. We might re-introduce Atorvastatin after triglycerides are at a more acceptable range. counseled and educated about diet and exercise, Patient encouraged to come up with a personal goal for weight loss. Assessment & Plan (05/13/2023 8:52 AM EDT): Here for a f/u Most recent lipid profile from: 02/06/2022 shows a total cholesterol of: 140 triglycerides of: 483 HDL of: 33 and LDL of: Unable to calculate Currently on Atorvastatin 40 mg po daily Plan: Continue with current regimen, Repeat Lipid profile advised to try to adhere to a low cholesterol diet, counseled and educated about diet and exercise, Patient encouraged to come up with a personal goal for weight loss. Type 2 diabetes mellitus wit h stage 3b chronic kidney disease, with long-term current use of insulin 04/13/2014 Assessment & Plan (11/18/2024 1:54 PM EST): Pt here for a f/u Blood glucose log shows BG ranging between 99 296 Hgb A1c 09/21/2024 was: 9.2 from 9.7 Microalbumin level 12/25/2021 was 5 Eye exam: 01/23/2022 Currently on a regimen of: Lantus 46 units sc qpm, Humalog sliding scale, Jardiance 25 mg, Ozempic 0.5 once a week His Metformin was restarted by Triage Technician in [place] 500 mg po BID once a day he stopped taking the Trulicity due to c/o nausea and vomiting. While in the hospital he was started on a sulfonylurea Glyburide 10 mg po BID Plan: Increase Ozempic 1mg once a week, Lower Glyburide to 5 mg po BID and I have instructed patient to STOP if Blood sugar starts dropping below 80 2 month follow up Foot check risk of zero Pt reports compliance with Asa 81 mg po daily Pt advised to: adhere to diabetic diet check your blood sugars regularly check your feet on a daily basis Assessment & Plan (09/21/2024 1:20 PM EST): Pt here for a f/u Did not bring gluvometer, new onse sent Hgb A1c 09/21/2024 was: 9.2 from 9.7 Microalbumin level 12/25/2021 was 5 Eye exam: 01/23/2022 Currently on a regimen of: Lantus 46 units sc qpm, Humalog 12 units with breakfast and Lunch and 16 units with dinner, Jardiance 25 mg, His Metformin was restarted by Triage Technician in [place] 500 mg po BID once a day he stopped taking the Trulicity due to c/o nausea and vomiting. And Ozempic 0.25 once a week Plan: increase Ozempic to 0.5 mg briscoe a week 2 month follow up f/u 3 months Foot check risk of zero Pt reports compliance with Asa 81 mg po daily Pt advised to: adhere to diabetic diet check your blood sugars regularly check your feet on a daily basis Assessment & Plan (07/27/2024 3:42 PM EDT): Pt here for a f/u Glucose; 325 Hgb A1c 07/27/2024 was: 9.7 from 8.4 from 7.6 Microalbumin level 12/25/2021 was 5 Eye exam: 01/23/2022 Pt did not bring his glucometer again. Currently on a regimen of: Lantus 46 units sc qpm, Humalog 12 units with breakfast and Lunch and 16 units with dinner, Jardiance 25 mg, His Metformin was restarted by Triage Technician in [place] 500 mg po BID once a day he stopped taking the Trulicity due to c/o nausea and vomiting. Plan: DC trulicity , start Ozempic 0.25 once a week f/u 1 month Foot check risk of zero Pt reports compliance with Asa 81 mg po daily Pt advised to: adhere to diabetic diet check your blood sugars regularly check your feet on a daily basis Assessment & Plan (03/23/2024 11:16 AM EDT): Pt here for a f/u Hgb A1c 03/23/2024 was: 8.4 from 7.6 Microalbumin level 12/25/2021 was 5 Eye exam: 01/23/2022 Pt did not bring his glucometer Currently on a regimen of: Lantus 46 units sc qpm, Humalog 12 units with breakfast and Lunch and 16 units with dinner, Jardiance 25 mg once a day and Trulicity once a week 1.5 mg His Metformin was restarted by Triage Technician in [place] 500 mg po BID Plan: No changes until he brings his glucometer f/u 2 months Foot check risk of zero Pt reports compliance with Asa 81 mg po daily Pt advised to: adhere to diabetic diet check your blood sugars regularly check your feet on a daily basis Assessment & Plan (11/25/2023 12:02 PM EST): Pt here for a f/u Hgb A1c 11/25/2023 was: 7.6 Microalbumin level 12/25/2021 was 5 Eye exam: 01/23/2022 Pt's glucometer show an average of: 148 Currently on a regimen of: Lantus 46 units sc qpm, Humalog 12 units with breakfast and Lunch and 16 units with dinner, Jardiance 25 mg once a day and Trulicity once a week 1.5 mg Metformin was Dced due to worsening renal function. Plan: Continue with current regimen f/u 4 months Foot check risk of zero Pt reports compliance with Asa 81 mg po daily Pt advised to: adhere to diabetic diet check your blood sugars regularly check your feet on a daily basis Assessment & Plan (07/15/2023 3:32 PM EDT): Pt here for a f/u Hgb A1c 07/15/2023 was: 7.8 from 8.2 from 8.6 Microalbumin level 12/25/2021 was 5 Eye exam: 01/23/2022 Pt's glucometer show an average of: 136 Currently on a regimen of: Lantus 46 units sc qpm, Humalog 12 units with breakfast and Lunch and 16 units with dinner, Jardiance 25 mg once a day and Trulicity once a week 1.5 mg Metformin was Dced due to worsening renal function. Plan: Continue with current regimen f/u 4 months Foot check risk of zero Pt reports compliance with Asa 81 mg po daily Pt advised to: adhere to diabetic diet check your blood sugars regularly check your feet on a daily basis Assessment & Plan (05/13/2023 9:49 AM EDT): Pt here for a f/u Hgb A1c 05/13/2023 was: 8.2 from 8.6 Microalbumin level 12/25/2021 was 5 Eye exam: 01/23/2022 Pt's glucometer show an average of: 176 Currently on a regimen of: Lantus 40 units sc qpm, Humalog 12 units with breakfast and Lunch and 16 units with dinner, Jardiance 25 mg once a day and Trulicity once a week 1.5 mg Metformin was Dced due to worsening renal function. Plan: Increase Lantus to 46 units q pm f/u 4 months Foot check risk of zero Pt reports compliance with Asa 81 mg po daily Pt advised to: adhere to diabetic diet check your blood sugars regularly check your feet on a daily basis Assessment & Plan (03/04/2023 3:17 PM EDT): Pt here for a f/u Hgb A1c 03/04/2023 was: 8.6 Microalbumin level 12/25/2021 was 5 Eye exam: 01/23/2022 Pt's glucometer show an average of: 198 Currently on a regimen of: Lantus 40 units sc qpm, Humalog 12 units with breakfast and Lunch and 16 units with dinner, Jardiance 25 mg once a day and Trulicity once a week 1.5 mg Metformin was Dced due to worsening renal function. I discussed with Pharmacy pt non compliant Plan: No changes until it becomes compliant f/u 4 months Foot check risk of zero Pt reports compliance with Asa 81 mg po daily Pt advised to: adhere to diabetic diet check your blood sugars regularly check your feet on a daily basis Depressive disorder 08/25/2013 Assessment & Plan (05/13/2023 8:57 AM EDT): Pt currently seeing a psychotherapist her name is Aj at [facility] . He used to see Dr. Colon but stopped due to lack of transportation His biggest complaint was lack of sleep. I have agreed to prescribe trazodone 100 mg po q hs prn. Obstructive sleep apnea syndrome 01/21/2013 Assessment & Plan (03/23/2024 10:59 AM EDT): Under the care of medical certification specialist (Dr Rucker). [facility] 01/27/2024 Awaiting Cpap Assessment & Plan (11/25/2023 11:58 AM EST): Sleep study done on 03/08/2013 confirmed the diagnosis of moderately severe NANO. Pt reported compliance with Cpap machine And is now under the care of medical certification specialist (Dr Rucker). Awaiting Cpap Assessment & Plan (05/13/2023 8:57 AM EDT): Sleep study done on 03/08/2013 confirmed the diagnosis of moderately severe NANO. Pt reported compliance with Cpap machine And is now under the care of medical certification specialist (Dr Rucker). He told me his Cpap was no longer working and needed a new one He was referred back for Sleep study, to sleep clinic. Appointment scheduled for 05/16/2023 Assessment & Plan (03/04/2023 3:01 PM EDT): Sleep study done on 03/08/2013 confirmed the diagnosis of moderately severe NANO. Pt reported compliance with Cpap machine And is now under the care of medical certification specialist (Dr Rucker). He tells me his Cpap is no longer working and needs a new one Plan: Sleep study, will refer to sleep clinic Cardiomyopathy 01/11/2013 Gastroesophageal reflux disease 01/11/2013 Resolved Problems Problem Noted Date Diagnosed Date Resolved Date Ingrowing nail, right great toe 10/06/2017 11/25/2023 Assessment & Plan (07/15/2023 3:25 PM EDT): Pt tells me the health nurse requested authorization from PCP to take care of his ingrown toe nail Plan: Podiatry referral Congestive heart failure 01/21/2013 Encounters Date Type Department Care Team Description 11/23/2024 Orders Only GENERIC EXTERNAL DATA DEPARTMENT Provider, Generic External Data 11/20/2024 Refill [facility] [place] [address] Tor Crews MD Mixed hyperlipidemia; Type 2 diabetes mellitus without complication, with long-term current use of insulin ([facility]) 11/18/2024 1:30 PM EST Office Visit [facility] [place] [address] Tor Crews MD Hospital discharge follow-up (Primary Dx); Mild intermittent asthma without complication; Essential hypertension; CKD stage 3 secondary to diabetes ([facility]); Type 2 diabetes mellitus with stage 3b chronic kidney disease, with long-term current use of insulin ([facility]); Class 1 obesity due to excess calories with serious comorbidity and body mass index (BMI) of 30.0 to 30.9 in adult; Dietary counseling; Exercise counseling 11/18/2024 Travel 11/18/2024 Refill [facility] [place] [address] Tor Crews MD Type 2 diabetes mellitus without complications ([facility]/HCC) 11/12/2024 Refill [facility] [place] [address] Brooke Meraz MD Type 2 diabetes mellitus without complication, with long-term current use of insulin ([facility]) 11/11/2024 Telephone [facility] [place] [address] oTr Crews MD Chart Prep 10/26/2024 Patient Outreach [facility] [place] [address] Tor Crews MD Transition Of Care (Tcm) (HDF- scheduled and SDOH screening completed on 03/23/2024) 10/26/2024 Telephone [facility] [place] [address] Tor Crews MD Hospital Follow-up 10/21/2024 Orders Only [facility] External Provider, [facility] 10/20/2024 Refill [facility] MED & PEDS [address] [place] [address] Tor Crews MD 10/18/2024 Refill [facility] MED[facility]INE [address] [place] [id number] Tor Crews MD 10/16/2024 Orders Only GENERIC EXTERNAL DATA DEPARTMENT Provider, Generic External Data 10/15/2024 Orders Only [facility] [address] [place] [id number] Arcelia Watkins ANP 10/15/2024 Refill [facility] [address] [place] [address] Tor Crews MD Hypertriglyceridemia 10/14/2024 9:40 AM EST [facility] [address] [address] Michelle Sosa MD Viral URI (Primary Dx); Mild intermittent asthma with acute exacerbation; Laceration of left ring finger without foreign body without damage to nail, initial encounter; Laceration of left index finger w/o foreign body w/o damage to nail, initial encounter 10/07/2024 9:20 AM EST [facility] [address] [address] Adebayo Baker MD Arthritis of right knee (Primary Dx) 10/07/[address] [address] Tor Crews MD Nurse Triage 09/21/2024 1:00 PM EST Office Visit [address] [address] Tor Crews MD Type 2 diabetes mellitus with stage 3b chronic kidney disease, with long-term current use of insulin ([facility]/H[facility]) (Primary Dx); Essential hypertension; Chronic systolic heart failure ([facility]); Type 2 diabetes mellitus without complication, with long-term current use of insulin ([facility]); CKD stage 3 secondary to diabetes ([facility]); Primary osteoarthritis of right knee; Encounter for immunization 09/21/2024 Travel 09/20/2024 11:30 AM EST Office Visit [facility] ADULT DENTAL [address] [facility] [address] Marlon Durham DMD 09/06/2024 Telephone [facility] [address] [facility] [place] [address] Tor Crews MD Error (VOID this visit) 09/06/2024 Telephone [facility] [address] [facility] [place] [address] Tor Crews MD Chart Prep from Last 3 Months Immunizations Name Administration Dates Next Due Hep B, adult 09/21/2024 Influenza injectable quadriv alent IIV4 with preservative 10/26/2015 Influenza injectable quadrivalent preservative f ree 08/21/2023 Influenza, Split (incl. purified surface antigen ) 09/06/2014,08/25/2013 Influenza, seasonal, injectable, preservative fr ee 09/21/2024 Pneumococcal Conjugate PCV 20 04/17/2023 Pneumococcal Polysaccharide PPSV23 02/03/2012 Tdap 10/16/2024,10/26/2015 Zoster, Recombinant 04/17/2023,02/13/2023 Family History Medical History Relation Name Comments Blindness Father Diabetes Father Diabetes Mother Relation Name Status Comments Father Mother Social History Tobacco Use Types Packs/Day Years Used Date Smoking Tobacco: Former Cigarettes Passive Smoke Exposure: Past Smokeless Tobacco: Never Tobacco Cessation:Counseling Given: Not Answered Alcohol Use Standard Drinks/Week Comments Yes 0 [...] Orientation Straight 08/26/2022 10 :22 AM EDT Last Filed Vital Signs Vital Sign Reading Time Taken Comments Blood Pressure 101/61 11/18/2024 1:33 PM EST Pulse 83 11/18/2024 1:33 PM EST Temperature 36.7 ??C (98.1 ??F) 11/18/2024 1:33 PM ES T Respiratory Rate 17 11/18/2024 1:33 PM EST Oxygen Saturation 98% 11/18/2024 1:33 PM EST Inhaled Oxygen Concentration - - Weight 93.4 kg (206 lb) 11/18/2024 1:33 PM EST Height 172.7 cm (5' 8 ) 11/18/2024 1:33 PM EST Body Mass Index 31.32 11/18/2024 1:33 PM EST Plan of Treatment Upcoming Encounters Date Type Department Care Team (Late st Contact Info) Description 11/29/2024 10:00 AM EST Office Visit [facility] ADULT DENTAL [address] [place] [address] Kristen Perez 12/07/2024 11:15 AM EST Office Visit [facility] MEDICINE [address] [place] [address] Tor Crews MD [address] [place] [address] Health Maintenance Due Date Last Done Comments CT Colonography 1971 Dental Prophylaxis 1971 FIT DNA/Cologuard 1971 FIT 1971 FOBT 1971 HIV Screening 1971 Sigmoidoscopy 1971 Diabetes: Foot Exam 1981 Alcohol/Substance Use Screening 1983 Hepatitis C Screening 1989 Dental Oral Exam 10/19/2021 04/18/2021 COVID-19 Vaccine ( season) 2024 11/20/2021, 01/10/2021, 12/20/2020 Lipid Panel 09/09/2024 09/09/2023, 08/27, 06/04/2023, Additional history exists Hepatitis B Vaccines (2 of 3 - 19+ 3-dose series) 10/19/2024 09/21/2024 Diabetes: Hemoglobin A1C 12/22/2024 024, 07/27/2024, 03/23/2024, Additional history exists Depression Screening 03/23/2025 03/23/2024, 03/04/20 23 SDOH Screening 03/23/2025 03/23/2024 Dental X-Ray: Bitewings 09/21/2025 09/20/2024, 04/18 Tobacco Screening 11/18/2025 11/18/2024 Eye Exam 07/02/2026 07/02/2024, 0903/2024, 07/02/2024, Additional history exists Dental X-Ray: Full Mouth 07/11/2026 07/10/2023, 03/28 Colonoscopy 01/26/2032 01/25/2022 Colorectal Cancer Screening 01/26/2032 DTaP/Tdap/Td Vaccines (3 - Td or Tdap) 10/16/2034 10/16/2024, 10/26/2015 RSV Patients and Patients Aged 60 years or older (1 - 1-dose 75+ series) 2046 Pneumococcal Vaccine: Pediatrics (0 to 5 Years) and At-Risk Patients (6 to 64 Years) Completed 04/17/2023, 02/03/2012 Zoster Vaccines Completed 04/17/2023, 02/13/2023 Influenza Vaccine Completed 09/21/2024, , 10/26/2015, Additional history exists HIB Vaccines Aged Out No longer eligi ble based on patient's age to complete this topic HPV Vaccines Aged Out No longer eligi ble based on patient's age to complete this topic Hepatitis A Vaccines Aged Out No long er eligible based on patient's age to complete this topic IPV Vaccines Aged Out No longer eligi ble based on patient's age to complete this topic Meningococcal Vaccine Aged Out No [place] eligible based on patient's age to complete this topic RSV under 20 months Aged Out No longe r eligible based on patient's age to complete this topic Rotavirus Vaccines Aged Out No longer eligible based on patient's age to complete this topic Procedures Procedure Name Priority Date/Time Associated Diagnosis Comments CBC WITH AUTO DIFFERENTIAL Routine 11/23/2024 10:37 AM EST XR CHEST 2 VIEWS Routine 10/23/2024 3:13 PM EST GLUCOSE, WHOLE BLOOD Routine 10/16/2024 1:10 PM EST XR CHEST 2 VIEWS Routine 10/16/2024 12:3 0 PM EST HIGH SENSITIVITY TROPONIN I Routine 10/16/2024 12:21 PM EST BASIC METABOLIC PANEL Routine 10/16/2024 12:21 PM EST HEPATIC FUNCTION PANEL Routine 12:21 PM EST CBC WITH AUTO DIFFERENTIAL Routine 10/16/2024 12:21 PM EST SARS COV2/INFLUENZA A/B AND RSV RNA QL NAAT Routine 10/16/2024 12:21 PM EST LACERATION REPAIR Routine 10/14/2024 10: 20 AM EST Laceration of left ring finger without foreign body without damage to nail, initial encounter POCT INFLUENZA B (ID NOW RAPID MOLECULAR) Routine 10/14/2024 9:52 AM EST Viral URI POCT INFLUENZA A (ID NOW RAPID MOLECULAR) Routine 10/14/2024 9:52 AM EST Viral URI POCT RAPID COVID ANTIGEN Routine 10/14/2024 9:52 AM EST Viral URI POCT GLYCATED HEMOGLOBIN, TOTAL Routine 09/21/2024 1:05 PM EST Type 2 diabetes mellitus without complication, with long-term current use of insulin ([facility]) POCT GLUCOSE Routine 09/21/2024 12:57 PM EST Type 2 diabetes mellitus without complication, with long-term current use of insulin ([facility]) ADJUNCTIVE GENERAL SERVICES - PROFESSIONAL VISITS - CASE PRESENTATION, SUBSEQUENT TO DETAILED AND EXTENSIVE TREATMENT PLANNING Routine 09/20/2024 11:30 AM EST ADJUNCTIVE GENERAL SERVICES - UNCLASSIFIED TREATMENT - PALLIATIVE TREATMENT OF DENTAL PAIN - PER VISIT Routine 09/20/2024 11:30 AM EST INTRAORAL - PERIAPICAL EACH ADDITIONAL RADIOGRAPHIC IMAGE Routine 09/20/2024 11:30 AM EST BITEWING - SINGLE RADIOGRAPHIC IMAGE Routine 09/20/2024 11:30 AM EST 19 INTRAORAL - PERIAPICAL FIRST RADIOGRAPHIC IMAGE Routine 09/20/2024 11:30 AM EST LIPID PANEL WITH REFLEX TO DIRECT LDL Routine 09/09/2023 7:57 AM EST Hypertriglyceridem ia PANORAMIC RADIOGRAPHIC IMAGE Routine 07/10/2023 10:45 AM EDT HM COLONOSCOPY Routine 01/25/2022 COMPREHENSIVE ORAL EVALUATION - NEW OR ESTABLISHED PATIENT Routine 04/18/2021 12:00 AM EDT from Last 3 Months or Most Recently Relevant to Health Maintenance Results * (ABNORMAL) CBC auto differential (11/23/2024 10:37 AM EST) Only the most recent of2 resultswithin the time period is included. White Blood Count 7.3 4.8 - 10.8 X10*3/uL [facility] Red Blood Count 5.08 4.60 - 5.80 X10*6/uL [facility] Hemoglobin 14.5 14.0 - 18.0 g/dl [facility] Hematocrit 42.0 42.0 - 52.0 % [facility] Mean Corpuscular Volume 82.7 80.0 - 98.0 fL [facility] Mean Corpuscular Hemoglobin 28.5 27.0 - 33.0 pg [facility] Mean Corpuscular HGB Conc 34.5 31.0 - 36.0 g/dl [facility] Red Cell Distribution Width 13.1 11.0 - 16.0 % [facility] Platelet Count 231 160 - 400 X10*3/uL [facility] Mean Platelet Volume 10.4 9.4 - 12.4 fL [facility] Neutrophils Percent Auto 70.9 45 - 73 % [facility] Imm Gran Pct Auto 0.8(H) 0.0 - 0.4 % [facility] Lymphocytes Percent Auto 20.7 20 - 40 % [facility] Monocytes Percent Auto 5.8 2 - 11 % [facility] Eosinophils Percent Auto 1.5 0 - 4 % [facility] Basophils Percent Auto 0.3 0 - 2 % [facility] NRBC Pct Auto 0.0 0.0 - 0.2 /100WBC [facility] Neutrophils Absolute Auto 5.2 2.0 - 8.3 x10*3/uL [facility] Imm Gran Abs Auto 0.06(H) 0.00 - 0.03 X10*3/uL [facility] Lymphocytes Absolute Auto 1.5 1.2 - 4.9 X10*3/uL [facility] Monocytes Absolute Auto 0.4 0.1 - 1.2 X10*3/uL [facility] Eosinophils Absolute Auto 0.1 0.0 - 0.4 X10*3/uL [facility] Basophils Absolute Auto 0.0 0.0 - 0.2 X10*3/uL [facility] NRBC Abs Auto 0.000 0.0 - 0.012 X10*3/uL [facility] 11/23/2024 10:3 7 AM EST 11/23/2024 10:37 AM EST us Generic External Data Provider LAB BLOOD ORDERAB LES Final Result [facility] [address] [place] [address] [phone] * XR Chest 2 Views (10/23/2024 3:13 PM EST) Only the most recent of2 resultswithin the time period is included. Anatomical Region Laterality Modality Chest Radiographic Fabiana ging 10/23/2024 3:13 PM EST Narrative 10/23/2024 3:14 PM EST ? [facility] ?[address] ?[place] [address] ?XRay Report ? Signed ? Patient: Godinez Godinez,Ian ?MR#: [id number] ?? [id number] ? : 1970 ?Acct:[id number] ? Age/Sex: 54 / M ?ADM Date: 10/21/24 ? Loc: HO.S3 ?346-1 ? Attending Dr: Nic Avery DO ? Ordering Physician: Nic Avery DO ?? Date of Service: 10/23/24 ?? Procedure(s): XR chest 2V ?? Accession Number(s): [id number] ? cc: Tor Villela MD; Nic Avery DO ? CLINICAL HISTORY: SOB ? Chest Radiographs, 2 views ? Comparison: 10/16/24 ? Findings: ?? No cardiomegaly. Left chest wall cardiac pacemaker/AICD. ?? Normal mediastinal contours. ?? No pneumothorax. No opacity. No pleural effusion. ?? Normal upper abdomen. ?? No acute fracture. ? Impression: ?? No acute findings. ? This document has been electronically signed by: Kaelyn Mason MD ?? on 10/23/2024 15:13:23 ? Dictated By: ?Kaelyn Leon MD ? Signed By: ?<Electronically signed by Kaelyn Leon MD in OV> ? 10/23/24 1514 ? DD/ 1513 ? TD/TT: 10/23/24 1513 ? Nursing Executive: ? Procedure Note Jessy, Image - 10/23/2024 [facility] [address] [place] [address] XRay Report Signed Patient: Ian HernandezMR#: [id number] : 1970Acct:[id number] Age/Sex: 54 / MADM Date: 10/21/24 Loc: [facility] 346-[address]: Nic Avery DO Ordering Physician: Nic Avery DO Date of Service: 10/23/24 Procedure(s): XR chest 2V Accession Number(s): [id number] cc: Tor Villela MD; Nic Avery DO CLINICAL HISTORY: SOB Chest Radiographs, 2 views Comparison: 10/16/24 Findings: No cardiomegaly. Left chest wall cardiac pacemaker/AICD. Normal mediastinal contours. No pneumothorax. No opacity. No pleural effusion. Normal upper abdomen. No acute fracture. Impression: No acute findings. This document has been electronically signed by: Kaelyn Mason MD on 10/23/2024 15:13:23 Dictated By: Kaelyn Leon MD Signed By: <Electronically signed by Kaelyn Leon MD in OV> 10/23/24 1514 DD/ 1513 TD/TT: 10/23/24 1513 Nursing Executive: [facility] External Provider IMG XR PROCEDURES Edited Result - Final * (ABNORMAL) Glucose, Whole Blood (10/16/2024 1:10 PM EST) Pathologist [facility] [place] Glucose, Whole Blood 340(H) 60 - 115 mg/dL [facility] Comment:METER #: [id number] 10/16/2024 1:10 PM EST 10/16/2024 1:15 PM EST Generic External Data Provider LAB BLOOD ORDERAB LES Final Result [facility] [address] [place] [phone] * High Sensitivity Troponin I (10/16/2024 12:21 PM EST) [facility] TROPONIN I HIGH SENSITIVITY 5.1 <3.5 - 35.0 ng/L [facility] Comment:The [place] high sens itivity Troponin-I results should beused in conjunction with other diagnostic information suchas ECG, clinical observations and information, and patientsymptoms to aid in the diagnosis of [place]. 10/16/2024 12:2 1 PM EST 10/16/2024 12:24 PM EST Generic External Data Provider LAB BLOOD ORDERAB LES Final Result Performing Organization Address [facility] Co de Phone Number [facility] [address] [place] [phone] * SARS-CoV-2 RNA, Influenza A/B, and RSV RNA, Ql NAAT (10/16/2024 12:21 PM EST) Influenza A PCR NEGATIVE Negative [facility] Influenza B PCR NEGATIVE Negative [facility] Resp Syncy Virus RNA Qual PCR NEGATIVE Negative [facility] SARS COV2 PCR NEGATIVE Negative [facility] Comment:All test results mus t be correlated with clinical findings.Negative results do not preclude SARS-CoV2, influenza Avirus, influenza B virus and/or RSV infectionand should not be used as the sole basis for treatment orother patient management decisions. Negative results must becombined with clinical observations, patient history, andepidemiological information.This test has not been evaluated for monitoring treatment ofinfection.This test has been authorized by the FDA under an EmergencyUse Authorization (EUA) for use by authorized laboratories.Testing performed on the [employer] GeneXpert utilizingreal-time RT-PCR.All SARS CoV2 and positive influenza A/B results arereported to [facility]. 10/16/2024 12:2 1 PM EST 10/16/2024 12:24 PM EST Generic External Data Provider LAB MICROBIOLOGY - GENERAL ORDERABLES Final Result Performing Organization Address [facility] Co de Phone Number [facility] [address] [place] [phone] * Hepatic Function Panel (10/16/2024 12:21 PM EST) Bilirubin, Total 0.3 0.0 - 1.0 mg/dL [facility] Bilirubin, Direct 0.1 0.0 - 0.5 mg/dL [facility] Aspartate Amino Transferase 19 5 - 37 U/L [facility] Alanine Aminotransferase 23 0 - 40 U/L [facility] Total Protein 7.1 6.5 - 8.0 g/dL [facility] Albumin Level 4.0 3.5 - 5.0 g/dL [facility] Alkaline Phosphatase 73 39 - 117 U/L [facility] 10/16/2024 12:2 1 PM EST 10/16/2024 12:24 PM EST us Generic External Data Provider LAB BLOOD ORDERAB LES Final Result Performing Organization Address City/State/[facility] Co de Phone Number [facility] [address] [place] [phone] * (ABNORMAL) Basic Metabolic Panel (10/16/2024 12:21 PM EST) Pathologist [facility] [place] Sodium 137 135 - 145 mmol/L [facility] Potassium 3.8 3.3 - 5.1 mmol/L [facility] Chloride 107 96 - 108 mmol/L [facility] Carbon Dioxide 20(L) 22 - 29 mmol/L [facility] Anion Gap 14 12 - 20 [facility] Urea Nitrogen (BUN) 30(H) 9 - 16 mg/dL [facility] Creatinine, Serum 1.65(H) 0.5 - 1.4 mg/dL [facility] Creatinine Clr Calc Pharmacy 55.6 [facility] Comment:eGFR (calculated fro m the MDRD study equation) and eCrCl(calculated from the Cockcroft-Gault equation) are based ondifferent parameters and may not yield comparable results.If eCrCl result is absurd, please check patient'sheight/weight. Estimated Glomerular Filt Rate 44 [facility] Comment:Chronic Kidney Disea se: Estimated GFR < 60 mL/min/1.69y2Ndzmpv Kidney Disease: Estimated GFR < 15 mL/min/1.73m2 Glucose 339(H) 60 - 115 mg/dL [facility] Calcium 8.8 8.4 - 10.2 mg/dL [facility] 10/16/2024 12:2 1 PM EST 10/16/2024 12:24 PM EST us Generic External Data Provider LAB BLOOD ORDERAB LES Final Result [facility] [address] [place] [phone] * Laceration Repair (10/14/2024 10:20 AM EST) Narrative Michelle Sosa MD - 10/14/2024 10:20 AM EST Michelle Sosa MD ? 10/14/2024 11:08 AM Laceration Repair Date/Time: 10/14/2024 10:20 AM Performed by: Michelle Sosa MD Authorized by: Michelle Sosa MD ?? Consent: ??Consent obtained: ??Verbal ??Consent given by: ??Patient ??Risks, benefits, and alternatives were discussed: yes ?Risks discussed: ??Pain ??Alternatives discussed: ??No treatment [place] protocol: ??Procedure explained and questions answered to patient or proxy's satisfaction: yes ?Site/side marked: yes ?Immediately prior to procedure, a time out was called: yes ?Patient identity confirmed: ??Verbally with patient Anesthesia: ??Anesthesia method: ??None Laceration details: ??Location: ??Finger ??Finger location: ??L small finger ??Length (cm): ??1 Exploration: ??Hemostasis achieved with: ??Direct pressure Treatment: ??Irrigation solution: ??Sterile saline ??Irrigation method: ??Syringe ??Debridement: ??None ??Undermining: ??None Skin repair: ??Repair method: derma cary. Repair type: ??Repair type: ??Simple Post-procedure details: ??Dressing: ??Non-adherent dressing ??Procedure completion: ??Tolerated Michelle Sosa MD IN CLINIC/BEDSIDE ORDERABL ES Final Result * Influenza B (ID NOW Rapid Molecular) (10/14/2024 9:52 AM EST) [facility] Influenza B Negative Negative, Indeterminate [facility] Swab 10/14/2024 9:52 AM EST Michelle Sosa MD POINT OF CARE TEST ENTER/E DIT ORDERABLES Final Result Performing Organization Address [facility] Co de Phone Number [facility] [address] [place] [phone] * Influenza A (ID NOW Rapid Molecular) (10/14/2024 9:52 AM EST) [facility] Influenza A Negative Negative, Indeterminate [facility] Swab 10/14/2024 9:52 AM EST Michelle Sosa MD POINT OF CARE TEST ENTER/E DIT ORDERABLES Final Result Performing Organization Address [facility] Co de Phone Number [facility] [address] [place] [phone] * POCT Rapid COVID Ag (10/14/2024 9:52 AM EST) [facility] Rapid COVID Ag Negative [facility] Swab 10/14/2024 9:52 AM EST Michelle Sosa MD POINT OF CARE TEST ENTER/E DIT ORDERABLES Final Result Performing Organization Address [facility] de Phone Number [facility] [address] [place] [phone] * (ABNORMAL) POCT HGB A1C (09/21/2024 1:05 PM EST) [facility] Hemoglobin A1C 9.2(A) 4.0 - 6.0 % QC Media Lot # [id number] Lot# Expiration Date [id number] Blood 09/21/2024 1:05 PM EST us Tor Bañuelos MD POINT OF CARE TEST EN TER/EDIT ORDERABLES Final Result * POCT Glucose (09/21/2024 12:57 PM EST) Glucose Blood, POC 160 60 - 200 mg/dL QC Media Lot # [id number] Lot# Expiration Date 5723,[id number] Blood Capillary blood specimen / Unknown 09/21/2024 12:57 PM EST us Tor Bañuelos MD POINT OF CARE TEST EN TER/EDIT ORDERABLES Final Result * (ABNORMAL) Lipid Panel with Reflex to Direct LDL (09/09/2023 7:57 AM EST) Triglycerides 448(H) <150 mg/dL [facility] Comment:Desirable Triglyceri de: less than 150 mg/dLBorderline High Triglyceride 150-199 mg/dLHigh Triglyceride: 200-499 mg/dLVery High Triglyceride: greater than or equal to 5OO mg/dL Cholesterol 204(H) <200 mg/dL [facility] Comment:Desirable Cholestero l: less than 200 mg/dLBorderline High Cholesterol: 200-239 mg/dLHigh Cholesterol: greater than 239 mg/dL LDL Cholesterol Calculated TNP <100 mg/dL [facility] Comment:Unable to calculate the LDL. The formula of Friedwald,Shepherd, and Pearl is only valid if the triglycerides areless than 400 mg/dl. HDL Cholesterol 34(L) >40 mg/dL [facility] Comment:Desirable HDL: great er than 40 mg/dL Note: This HDL assay may give artificially low results in patients with liver disease. Blood 09/09/2023 7:57 AM EST 09/09/2023 7:57 AM EST us Tor Bañuelos MD LAB BLOOD ORDERABLES Final Result [facility] [address] [place] [phone] * Colonoscopy (01/25/2022) Colonoscopy Normal Normal 01/25/2022 Radha Reed - 01/25/2022 2:56 PM EDT Recommended 10 year follow up ( see scanned notes) us Historical Provider HEALTH MAINTENANCE Edited Result - Final from Last 3 Months or Most Recently Relevant to Health Maintenance Insurance [facility] - [facility] Care Teams Dry Wall Applicator Relationship Specialty Start Date End Date Tor Crews MD [address] [place] [phone] PCP - General Internal Medicine 07/21/14
--- OUTSIDE RECORDS SUMMARY | 2024-11-23 11:25 | XMS_ITS | Encounter Summary ---
Author Organization [employer] Address [address] [place] [address] Care Team Providers Care Supervisor Blood Name Role Phone Tor Crews MD Primary Care Provide r Encounter Details Date Type Department Care Team ([facility] st Contact Info) Description 10/15/2024 Orders Only [facility] [address] [place], [place] [phone] Arcelia Watkins ANP [address] [place], [place] [phone] Social History Tobacco Use Types Packs/Day Years [...] Recorded Patient Health Questionnaire-2 Score 1 03/23/2024 Sex and Gender Information Value Date Recorded Sex Assigned at Male 08/26/2022 10:22 AM EDT Legal Sex Male 10:22 AM EDT Gender Identity Male 08/26/2022 10:22 AM EDT Sexual Orientation Straight 08/26/2022 10 :22 AM EDT documented as of this encounter Plan of Treatment Upcoming Encounters Date Type Department Care Team (Late st Contact Info) Description 11/29/2024 10:00 AM EST Office Visit [facility] [address] [place] [address] Kristen Perez 12/07/2024 11:15 AM EST Office Visit [facility] [address] [place] [address] Tor Crews MD [address] [place] [address] documented as of this encounter Visit Diagnoses Not on filedocumented in this encounter Additional Health Concerns Assessment Noted Time PHQ-9 Depression Total Score: 4 03/04/20 23 2:58 PM EDT documented as of this encounter Care Teams Supervisor Blood Relationship Specialty Start Date End Date Tor Crews MD [address] [place] [phone] PCP - General Internal Medicine 07/21/14 documented as of this encounter
--- OUTSIDE RECORDS SUMMARY | 2024-11-23 11:25 | XMS_ITS | Encounter Summary ---
Author Organization [employer] Address [address]t [place] [address] Care Team Providers Care Fireproof Door Assembler Name Role Phone Tor Crews MD Primary Care Provide r Reason for Visit * Reason Comments Med Refill Encounter Details Date Type Department Care Team ([facility] st Contact Info) Description 11/20/2024 Refill [facility] [address] [place], [place] [phone] Tor Crews MD [address] [place], [place] [phone] Mixed hyperlipidemia; Type 2 diabetes mellitus without complication, with long-term current use of insulin ([facility]) Social History Tobacco Use Types Packs/Day Years [...] Description 11/29/2024 10:00 AM EST Office Visit [facility] [address] [place] [address] Kristen Perez 12/07/2024 11:15 AM EST Office Visit [facility] [address] [place] [phone] Tor Crews MD [address] [place] [phone] documented as of this encounter Visit Diagnoses Diagnosis Mixed hyperlipidemia Type 2 diabetes mellitus without complication, with long-term current use of insulin ([facility]) documented in this encounter Additional Health Concerns Assessment Noted Time PHQ-9 Depression Total Score: 4 03/04/20 23 2:58 PM EDT documented as of this encounter Care Teams Fireproof Door Assembler Relationship Specialty Start Date End Date Tor Crews MD [address] [place] [phone] PCP - General Internal Medicine 07/21/14 documented as of this encounter
--- OUTSIDE RECORDS SUMMARY | 2024-11-23 11:25 | XMS_ITS | Encounter Summary ---
Author Organization [employer] Address [address] [place] [address] Care Team Providers Care Card Grinder Name Role Phone Tor Crews MD Primary Care Provide r Reason for Visit * Reason Comments Med Refill Encounter Details Date Type Department Care Team ([facility] st Contact Info) Description 11/12/2024 Refill [facility] [address] [place], [place] [phone] Brooke Meraz MD [address] [place] [phone] Type 2 diabetes mellitus without complication, with long-term current use of insulin ([facility]) Social History Tobacco Use Types Packs/Day Years [...] Description 11/29/2024 10:00 AM EST Office Visit [facility] ADULT [facility] [address] [place] [address] Kristen Perez 12/07/2024 11:15 AM EST Office Visit [facility] [address] [place] [address] Tor Crews MD [address] [place] [address] documented as of this encounter Visit Diagnoses Diagnosis Type 2 diabetes mellitus without complication, with long-term current use of insulin ([facility]) documented in this encounter Additional Health Concerns Assessment Noted Time PHQ-9 Depression Total Score: 4 03/04/20 23 2:58 PM EDT documented as of this encounter Care Teams Card Grinder Relationship Specialty Start Date End Date Tor Crews MD [address] [place] [phone] PCP - General Internal Medicine 07/21/14 documented as of this encounter
--- OUTSIDE RECORDS SUMMARY | 2024-11-23 11:25 | XMS_ITS | Encounter Summary ---
Author Organization [employer] Address [address] [place] [address] Care Team Providers Care Deep Submergence Vehicle Operator Name Role Phone Tor Crews MD Primary Care Provide r Encounter Details Date Type Department Care Team (Latest Contact Info) Description 11/18/2024 Travel Social History Tobacco Use Types Packs/Day Years Used Date Smoking Tobacco: Former Cigarettes Passive Smoke Exposure: Past Smokeless Tobacco: Never Alcohol Use Standard Drinks/Week Comments Yes 0 (1 standard drink = 0.6 oz pur e alcohol) Depression Answer Date Recorded Patient Health Questionnaire-9 Score 4 03/04/2023 Housing Stability Answer Date Recorded What is your housing situation today? I have jess sing 03/23/[address] you li [...] Description 11/29/2024 10:00 AM EST Office Visit [facility] [address] [place] [phone] Kristen Perez 12/07/2024 11:15 AM EST Office Visit [facility] [address] [place] [address] Tor Crews MD [address] [place] [address] documented as of this encounter Visit Diagnoses Not on filedocumented in this encounter Additional Health Concerns Assessment Noted Time PHQ-9 Depression Total Score: 4 03/04/20 23 2:58 PM EDT documented as of this encounter Care Teams Deep Submergence Vehicle Operator Relationship Specialty Start Date End Date Tor Crews MD [address] [place] [address] PCP - General Internal Medicine 07/21/14 documented as of this encounter
--- OUTSIDE RECORDS SUMMARY | 2024-11-23 11:25 | XMS_ITS | Encounter Summary ---
Author Organization [employer] Address [address] [facility] 7t [place] [address] Care Team Providers Care Semiconductor Wafers Tester Name Role Phone Tor Crews MD Primary Care Provide r Reason for Visit * Reason Comments Hospital Follow-up Encounter Details Date Type Department Care Team ([facility] st Contact Info) Description 11/18/2024 1:30 PM EST Office Visit [facility] MEDICINE [address] [place], [place] [phone] Tor Crews MD [address] [place], [place] [phone] Hospital discharge follow-up (Primary Dx); Mild intermittent asthma without complication; Essential hypertension; CKD stage 3 secondary to diabetes ([facility]); Type 2 diabetes mellitus with stage 3b chronic kidney disease, with long-term current use of insulin ([facility]); Class 1 obesity due to excess calories with serious comorbidity and body mass index (BMI) of 30.0 to 30.9 in adult; Dietary counseling; Exercise counseling Social History Tobacco Use Types Packs/Day Years [...] AM EDT documented as of this encounter Last Filed Vital Signs Vital Sign Reading [...] Mass Index 31.32 11/18/2024 1:33 PM EST documented in this encounter Progress Notes * Tor Bañuelos MD - 11/18/2024 1:30 PM EST SUBJECTIVE Ian Godinez is a 54 y.o. male who presents for Hospital Follow-up. Pt here for a HDF Review of Systems Constitutional: Negative for fever. HENT: Negative for sore throat. Respiratory: Negative for cough and shortness of breath. Cardiovascular: Negative for chest pain. Gastrointestinal: Negative for abdominal pain. Neurological: Negative for headaches. No Known Allergies OBJECTIVE Vitals: 11/18/24 1333 BP: 101/61 BP Location: Right arm Patient Position: Sitting BP Cuff Size: Adult Pulse: 83 Resp: 17 Temp: 98.1 ??F (36.7 ??C) TempSrc: Temporal SpO2: 98% Weight: 206 lb (93.4 kg) Height: 5' 8 (1.727 m) Physical Exam Vitals reviewed. Constitutional: Appearance: Normal appearance. HENT: Head: Normocephalic and atraumatic. Right Ear: External ear normal. Left Ear: External ear normal. Nose: Nose normal. Mouth/Throat: Mouth: Mucous membranes are moist. Eyes: Conjunctiva/sclera: Conjunctivae normal. Cardiovascular: Rate and Rhythm: Normal rate and regular rhythm. Pulmonary: Effort: Pulmonary effort is normal. Breath sounds: Normal breath sounds. Skin: General: Skin is warm. Neurological: Mental Status: He is alert. Mental status is at baseline. Assessment/Plan Problem List Items Addressed This Visit Hospital discharge follow-up - Primary Patient is here for a HDF He was admitted to [facility] from 10/21-10/25/2024 After he presented with worsening [...] and he was started on a sulfonylurea. Relevant Orders Basic Metabolic Panel Mild intermittent asthma without complication Recent exacerbation requiring hospitalization Essential hypertension Here for a f/u BP controlled on [...] about medication compliance, counseled about weight loss. CKD stage 3 secondary to diabetes ([facility]) Under the care of Nephrology, last seen 09/03/2024 Dr. Bonilla his resident athletic trainer Lab Results Component Value Date GLUCOSE 340 (H) 10/16/2024 NA 137 10/16/2024 K 3.8 10/16/2024 CO2 20 (L) 10/16/2024 CL 107 10/16/2024 BUN 30 (H) 10/16/2024 CREATININE 1.65 (H) 10/16/2024 Will repeat Type 2 diabetes mellitus with stage 3b chronic kidney disease, with long-term current use of insulin ([facility]) Pt here for a f/u Blood glucose log shows BG ranging between 99 296 Hgb A1c 09/21/2024 was: 9.2 from 9.7 Microalbumin level 12/25/2021 was 5 Eye exam: 01/23/2022 Currently on a regimen of: Lantus 46 units sc qpm, Humalog sliding scale, Jardiance 25 mg, Ozempic 0.5 once a week His Metformin was restarted by Compressor Repairer in [place] 500 mg po BID once a day [...] check your feet on a daily basis Relevant Medications semaglutide (Ozempic) 2 MG/1.5ML solution pen-injector glyBURIDE (Diabeta) 5 MG tablet Class 1 obesity due to excess calories with serious comorbidity and body mass index (BMI) of 30.0 to 30.9 in adult Patient has been counseled and educated about diet and exercise. Personal goal of weight loss discussedPatient has comorbidity of: DM Dietary Recommendations: Fruits, vegetables, whole grains, protein foods, and fat-free or low-fat dairy products are healthychoices. Eat different types of protein foods in your diet. This can include seafood, lean meats, poultry, beans, peas, lentils, nuts, seeds, soy products, and eggs. Limit foods and beverages higher in added sugars, saturated fat, and sodium. Exercise Recommendations: At least 150 minutes of moderate-intensity physical activity per week, or an equivalent combinationof moderate- and vigorous-intensity activity Other Visit Diagnoses Dietary counseling Exercise counseling documented in this encounter Miscellaneous Notes * Assessment & Plan Note - Tor Bañuelos MD - 11/18/2024 1:42 PM EST Associated Problem(s): Class 1 obesity due to excess calories with serious comorbidity and body mass index (BMI) of 30.0 to 30.9 in adult Patient has been counseled and educated about diet and exercise. Personal goal of weight loss discussedPatient has comorbidity of: DM Dietary Recommendations: Fruits, vegetables, whole grains, protein foods, and fat-free or low-fat dairy products are healthychoices. Eat different types of protein foods in your diet. This can include seafood, lean meats, poultry, beans, peas, lentils, nuts, seeds, soy products, and eggs. Limit foods and beverages higher in added sugars, saturated fat, and sodium. Exercise Recommendations: At least 150 minutes of moderate-intensity physical activity per week, or an equivalent combinationof moderate- and vigorous-intensity activity * Assessment & Plan Note - Tor Bañuelos MD - 11/18/2024 1:40 PM EST Associated Problem(s): Type 2 diabetes mellitus with stage 3b chronic kidney disease, with long-term current use of insulin ([facility]) Pt here for a f/u Blood glucose log shows BG ranging between 99 296 Hgb A1c 09/21/2024 was: 9.2 from 9.7 Microalbumin level 12/25/2021 was 5 Eye exam: 01/23/2022 Currently on a regimen of: Lantus 46 units sc qpm, Humalog sliding scale, Jardiance 25 mg, Ozempic 0.5 once a week His Metformin was restarted by Compressor Repairer in [place] 500 mg po BID once a day [...] check your feet on a daily basis * Assessment & Plan Note - Tor Bañuelos MD - 11/18/2024 1:39 PM EST Associated Problem(s): CKD stage 3 secondary to diabetes ([facility]) Under the care of Nephrology, last seen 09/03/2024 Dr. Bonilla his resident athletic trainer Lab Results Component Value Date GLUCOSE 340 (H) 10/16/2024 NA 137 10/16/2024 K 3.8 10/16/2024 CO2 20 (L) 10/16/2024 CL 107 10/16/2024 BUN 30 (H) 10/16/2024 CREATININE 1.65 (H) 10/16/2024 Will repeat * Assessment & Plan Note - Tor Bañuelos MD - 11/18/2024 1:38 PM EST Associated Problem(s): Essential hypertension Here for a f/u BP controlled on [...] about medication compliance, counseled about weight loss. * Assessment & Plan Note - Tor Bañuelos MD - 11/18/2024 1:38 PM EST Associated Problem(s): Mild intermittent asthma without complication Recent exacerbation requiring hospitalization * Assessment & Plan Note - Tor Bañuelos MD - 11/18/2024 1:37 PM EST Associated Problem(s): Hospital discharge follow-up Patient is here for a HDF He was admitted to [facility] from 10/21-10/25/2024 After he presented with worsening [...] and he was started on a sulfonylurea. documented in this encounter Plan of Treatment Upcoming Encounters Date Type Department Care Team (Late st Contact Info) Description 11/29/2024 10:00 AM EST Office Visit [facility] ADULT DENTAL [address] [place] [address] Kristen Perez 12/07/2024 11:15 AM EST Office Visit [facility] MEDICINE [address] [place] [address] Tor Crews MD [address] [place] [address] Scheduled Orders Name Type Priority Associated Diagnoses Orde r Schedule Basic Metabolic Panel Lab Routine Hospital discharge follow-up Ordered: 11/18/2024 documented as of this encounter Visit Diagnoses Diagnosis Hospital discharge follow-up- Primary Other follow-up examination Mild intermittent asthma without complication Essential hypertension Unspecified essential hypertension CKD stage 3 secondary to diabetes ([facility]) Type 2 diabetes mellitus with stage 3b chronic kidney disease, with long-term current use of insulin ([facility]) Class 1 obesity due to excess calories with serious comorbidity and body mass index (BMI) of 30.0 to 30.9 in adult Dietary counseling Dietary surveillance and counseling Exercise counseling documented in this encounter Additional Health Concerns Assessment Noted Time PHQ-9 Depression Total Score: 4 03/04/20 23 2:58 PM EDT documented as of this encounter Care Teams Semiconductor Wafers Tester Relationship Specialty Start Date End Date Tor Crews MD [address] [place] [address] PCP - General Internal Medicine 07/21/14 documented as of this encounter
--- OUTSIDE RECORDS SUMMARY | 2024-11-23 11:25 | XMS_ITS | Encounter Summary ---
Author Organization [employer] Address [address] [address] [place] [address] Care Team Providers Care Lapeler Name Role Phone Tor Crews MD Primary Care Provide r Encounter Details Date Type Department Care Team (Late st Contact Info) Description 11/23/2024 Orders Only GENERIC EXTERNAL DATA DEPARTMENT Provider, Generic External Data Social History Tobacco Use Types Packs/Day Years Used Date Smoking Tobacco: Former Cigarettes Passive Smoke Exposure: Past Smokeless Tobacco: Never Alcohol Use Standard Drinks/Week Comments Yes 0 (1 standard drink = 0.6 oz pur e alcohol) Depression Answer Date Recorded Patient Health Questionnaire-9 Score 4 03/04/2023 Housing Stability Answer Date Recorded What is your housing situation today? I have jess sharlene 03/23/[address] you li [...] 10:00 AM EST Office Visit [facility] ADULT DENTAL [address] [place] [address] Kristen Perez 12/07/2024 11:15 AM EST Office Visit [facility] MEDICINE [address] [place], [place] [phone] Tor Crews MD [address] [place] [address] documented as of this encounter Procedures Procedure Name Priority Date/Time Associated Diagnosis Comments CBC WITH AUTO DIFFERENTIAL Routine 11/23/2024 10:37 AM EST documented in this encounter Results * (ABNORMAL) CBC auto differential (11/23/2024 10:37 AM EST) White Blood Count 7.3 4.8 - 10.8 X10*3/uL [facility] Red Blood Count 5.08 4.60 - 5.80 X10*6/uL [facility] Hemoglobin 14.5 14.0 - 18.0 g/dl [facility] Hematocrit 42.0 42.0 - 52.0 % [facility] Mean Corpuscular Volume 82.7 80.0 - 98.0 fL [facility] Mean Corpuscular Hemoglobin 28.5 27.0 - 33.0 pg [facility] Mean Corpuscular HGB Conc 34.5 31.0 - 36.0 g/dl [facility] Red Cell Distribution Width 13.1 11.0 - 16.0 % [facility] Platelet Count 231 160 - 400 X10*3/uL [facility] Mean Platelet Volume 10.4 9.4 - 12.4 fL [facility] Neutrophils Percent Auto 70.9 45 - 73 % [facility] Imm Gran Pct Auto 0.8(H) 0.0 - 0.4 % [facility] Lymphocytes Percent Auto 20.7 20 - 40 % [facility] Monocytes Percent Auto 5.8 2 - 11 % [facility] Eosinophils Percent Auto 1.5 0 - 4 % [facility] Basophils Percent Auto 0.3 0 - 2 % [facility] NRBC Pct Auto 0.0 0.0 - 0.2 /100WBC [facility] Neutrophils Absolute Auto 5.2 2.0 - 8.3 x10*3/uL [facility] Imm Gran Abs Auto 0.06(H) 0.00 - 0.03 X10*3/uL [facility] Lymphocytes Absolute Auto 1.5 1.2 - 4.9 X10*3/uL [facility] Monocytes Absolute Auto 0.4 0.1 - 1.2 X10*3/uL [facility] Eosinophils Absolute Auto 0.1 0.0 - 0.4 X10*3/uL [facility] Basophils Absolute Auto 0.0 0.0 - 0.2 X10*3/uL [facility] NRBC Abs Auto 0.000 0.0 - 0.012 X10*3/uL [facility] 11/23/2024 10:3 7 AM EST 11/23/2024 10:37 AM EST us Generic External Data Provider LAB BLOOD ORDERAB LES Final Result [facility] [address] [place] [phone] documented in this encounter Visit Diagnoses Not on filedocumented in this encounter Additional Health Concerns Assessment Noted Time PHQ-9 Depression Total Score: 4 03/04/20 23 2:58 PM EDT documented as of this encounter Care Teams Lapeler Relationship Specialty Start Date End Date Tor Crews MD [address] [place] [id number] PCP - General Internal Medicine 07/21/14 documented as of this encounter
--- OUTSIDE RECORDS SUMMARY | 2024-11-23 11:25 | XMS_ITS | Encounter Summary ---
Author Organization [employer] Address [address] [facility] 7t [place] [address] Care Team Providers Care Speech Therapy Director Name Role Phone Tor Crews MD Primary Care Provide r Encounter Details Date Type Department Care Team (Late st Contact Info) Description 10/30/2022 Orders Only [facility] [address] [place] [address] Mahsa Bustillos LPN Social History Tobacco Use Types Packs/Day Years Used Date Smoking Tobacco: Never Assessed Sex and Gender Information Value Date Recorded [...] 10:00 AM EST Office Visit [facility] ADULT DENTAL [address] [place] [address] Kristen Perez 12/07/2024 11:15 AM EST Office Visit [facility] MEDICINE [address] [place] [address] Tor Crews MD [address] [place] [address] documented as of this encounter Visit Diagnoses Not on filedocumented in this encounter Care Teams Speech Therapy Director Relationship Specialty Start Date End Date Tor Crews MD [address] [place] [address] PCP - General Internal Medicine 07/21/14 documented as of this encounter
--- OUTSIDE RECORDS SUMMARY | 2024-11-23 11:25 | XMS_ITS | Encounter Summary ---
Author Organization [employer] Address [address] [facility] 7t [place] [address] Care Team Providers Care Biosecurity Officer Name Role Phone Tor Crews MD Primary Care Provide r Encounter Details Date Type Department Care Team (Latest Contact Info) Description 04/26/2021 Abstract [facility] CONVERSIONS Dental, Provider, DDS Social History Tobacco Use Types Packs/Day Years [...] Description 11/29/2024 10:00 AM EST Office Visit [facility] ADULT DENTAL [address] [place] [address] Kristen Perez 12/07/2024 11:15 AM EST Office Visit [facility] MEDICINE [address] [place] [address] Tor Crews MD [address] [place] [address] documented as of this encounter Visit Diagnoses Not on filedocumented in this encounter Care Teams Biosecurity Officer Relationship Specialty Start Date End Date Tor Crwes MD [address] [place] [address] PCP - General Internal Medicine 07/21/14 documented as of this encounter
--- OUTSIDE RECORDS SUMMARY | 2024-11-23 11:25 | XMS_ITS | Encounter Summary ---
Author Organization [employer] Address [address] [address] [facility] [address] [place] [address] Care Team Providers Care Hog Cutter Name Role Phone Tor Crews MD Primary Care Provide r Reason for Visit * Reason Onset Date Comments Hospital Follow-up 10/26/2024 Encounter Details Date Type Department Care Team ([facility] st Contact Info) Description 10/26/2024 Telephone [facility] MEDICINE [address] [place], [place] [phone] Tor Crews MD [address] [place], [place] [phone] Hospital Follow-up Social History Tobacco Use Types Packs/Day Years [...] encounter Miscellaneous Notes * Telephone Encounter - Harsha Song - 10/26/2024 9:32 AM EST Tc from pt requesting a HDF appt. Hospital: [facility] Date of admission: 10/20/2024 Discharge date: 10/25/2024 Diagnosed: Asthma *Send message to [place] Clinical Care Coordinators documented in this encounter Plan of Treatment Upcoming Encounters Date Type Department Care Team (Late st Contact Info) Description 11/29/2024 10:00 AM EST Office Visit [facility] ADULT DENTAL [address] [place] [address] Kristen Perez 12/07/2024 11:15 AM EST Office Visit [facility] MEDICINE [address] [place] [address] Tor Crews MD [address] [place] [address] documented as of this encounter Visit Diagnoses Not on filedocumented in this encounter Additional Health Concerns Assessment Noted Time PHQ-9 Depression Total Score: 4 03/04/20 23 2:58 PM EDT documented as of this encounter Care Teams Hog Cutter Relationship Specialty Start Date End Date Tor Crews MD [address] [place] [address] PCP - General Internal Medicine 07/21/14 documented as of this encounter
--- OUTSIDE RECORDS SUMMARY | 2024-11-23 11:25 | XMS_ITS | Encounter Summary ---
Author Organization [employer] Address [address] [facility] 7t [place] [address] Care Team Providers Care Combine Mechanic Name Role Phone Tor Crews MD Primary Care Provide r Reason for Visit * Reason Comments Med Refill Encounter Details Date Type Department Care Team ([facility] st Contact Info) Description 11/18/2024 Refill [facility] MEDICINE [address] [place], [place] [phone] Tor Crews MD [address] [place], [place] [phone] Type 2 diabetes mellitus without complications (CMS/HCC) Social History Tobacco Use Types Packs/Day Years [...] 10:00 AM EST Office Visit [facility] ADULT DENTAL [address] [place] [address] Kristen Perez 12/07/2024 11:15 AM EST Office Visit [facility] MEDICINE [address] [place] [address] Tor Crews MD [address] [place] [address] documented as of this encounter Visit Diagnoses Diagnosis Type 2 diabetes mellitus without complications (CMS/HCC) documented in this encounter Additional Health Concerns Assessment Noted Time PHQ-9 Depression Total Score: 4 03/04/20 23 2:58 PM EDT documented as of this encounter Care Teams Combine Mechanic Relationship Specialty Start Date End Date Tor Crews MD [address] [place] [phone] PCP - General Internal Medicine 07/21/14 documented as of this encounter
--- OUTSIDE RECORDS SUMMARY | 2024-11-23 11:25 | XMS_ITS | Encounter Summary ---
Author Organization [employer] Address [address] [facility] [address] [facility] [address] [place] [address] Care Team Providers Care Sleep Manager Name Role Phone Tor Crews MD Primary Care Provide r Encounter Details Date Type Department Care Team (Late Contact Info) Description 02/27/2023 Abstract [facility] MEDICINE [address] [place] [phone] Tor Crews MD [address] [place], [place] [phone] Social History Tobacco Use Types Packs/Day Years Used Date Smoking Tobacco: Every Day Cigarettes Smokeless Tobacco: Never Alcohol Use Standard Drinks/Week Comments Yes 0 (1 standard drink = 0.6 oz pur e alcohol) Sex and Gender Information Value Date Recorded Sex Assigned at Male 08/26/2022 10:22 AM EDT Legal Sex Male 10:22 AM EDT Gender Identity Male 08/26/2022 10:22 AM EDT Sexual Orientation Straight 08/26/2022 10 :22 AM EDT COVID-19 Exposure Response Date Recorded In the last 10 days, have yo u been in contact with someone who was confirmed or suspected to have Coronavirus/COVID-19? No / Unsure 02/13/2023 10:53 AM EDT documented as of this encounter Plan of Treatment Upcoming Encounters Date Type Department Care Team (Late st Contact Info) Description 11/29/2024 10:00 AM EST Office Visit [facility] ADULT DENTAL [address] [place] [phone] Kristen Perez 12/07/2024 11:15 AM EST Office Visit [facility] MEDICINE [address] [place], [place] [phone] Tor Crews MD [address] [place] [address] documented as of this encounter Procedures Procedure Name Priority Date/Time Associated Diagnosis Comments COLONOSCOPY Routine 01/25/2022 documented in this encounter Results * Hm Colonoscopy (01/25/2022) Colonoscopy Normal Normal 01/25/2022 Narrative Radha Alves - 01/25/2022 2:56 PM EDT Recommended 10 year follow up ( see scanned notes) us Historical Provider [employer] [facility] Edited Result - Final documented in this encounter Visit Diagnoses Not on filedocumented in this encounter Care Teams Sleep Manager Relationship Specialty Start Date End Date Tor Crews MD [address] [place] [address] PCP - General Internal Medicine 07/21/14 documented as of this encounter
--- OUTSIDE RECORDS SUMMARY | 2024-11-23 11:25 | XMS_ITS | Encounter Summary ---
Author Organization [employer] Address [address] [facility] 7t [place] [address] Care Team Providers Care Ultrasonic Seaming Machine Operator Name Role Phone Tor Crews MD Primary Care Provide r Reason for Visit * Reason Comments Med Refill Encounter Details Date Type Department Care Team (Late st Contact Info) Description 05/23/2023 Refill [facility] MEDICINE [address] [place], [place] [phone] Tor Crews MD [address] [place], [place] [phone] Acute pain of right knee Social History Tobacco Use Types Packs/Day Years Used Date Smoking Tobacco: Some Days Cigarettes Passive Smoke Exposure: Current Smokeless Tobacco: Never Alcohol Use Standard Drinks/Week Comments Yes 0 (1 standard drink = 0.6 oz pur e alcohol) Depression Answer Date Recorded Patient Health Questionnaire-9 Score 4 03/04/2023 Depression Answer Date Recorded Patient Health Questionnaire-2 [...] Description 11/29/2024 10:00 AM EST Office Visit [facility] ADULT DENTAL [address] [place], [place] [phone] Kristen Perez 12/07/2024 11:15 AM EST Office Visit [facility] MEDICINE [address] [place], [place] [phone] Tor Crews MD [address] [place], [place] [phone] documented as of this encounter Visit Diagnoses Diagnosis Acute pain of right knee documented in this encounter Additional Health Concerns Assessment Noted Time PHQ-9 Depression Total Score: 4 03/04/20 23 2:58 PM EDT documented as of this encounter Care Teams Ultrasonic Seaming Machine Operator Relationship Specialty Start Date End Date Tor Crews MD [address] [place] [address] PCP - General Internal Medicine 07/21/14 documented as of this encounter
--- OUTSIDE RECORDS SUMMARY | 2024-11-23 11:25 | XMS_ITS | Encounter Summary ---
Author Organization [employer] Address [address] [facility] 7t [place] [address] Care Team Providers Care Chucker Name Role Phone Tor Crews MD Primary Care Provide r Encounter Details Date Type Department Care Team (Late Contact Info) Description 11/28/2022 Abstract [facility] [address] [place] [phone] Tor Crews MD [address] [place], [place] [phone] Social History Tobacco Use Types Packs/Day Years [...] suspected to have Coronavirus/COVID-19? No / Unsure 11/15/2022 1:51 PM EST documented as of this encounter Plan of Treatment Upcoming Encounters Date Type Department Care Team (Late st Contact Info) Description 11/29/2024 10:00 AM EST Office Visit [facility] ADULT DENTAL [address] [place] [address] [phone] Kristen Perez 12/07/2024 11:15 AM EST Office Visit [facility] [address] [place], [place] [phone] Tor Crews MD [address] [place], [place] [phone] documented as of this encounter Visit Diagnoses Not on filedocumented in this encounter Care Teams Chucker Relationship Specialty Start Date End Date Tor Crews MD [address] [place], [place] [phone] PCP - General Internal Medicine 07/21/14 documented as of this encounter
--- OUTSIDE RECORDS SUMMARY | 2024-11-23 11:25 | XMS_ITS | Encounter Summary ---
Author Organization [employer] Address [address] [facility] [address] 7[address] [place] [address] Care Team Providers Care Sap Pi Architect Name Role Phone Tor Crews MD Primary Care Provide r Reason for Visit * Reason Onset Date Comments triage 01/13/2023 Encounter Details Date Type Department Care Team ([facility] st Contact Info) Description 01/13/2023 Telephone [facility] [address] [place] [address] Tor Crews MD [address] [place] [address] triage Social History Tobacco Use Types Packs/Day Years [...] encounter Miscellaneous Notes * Telephone Encounter - Fiorella Cabello RN - 01/13/2023 1:24 PM EDT Triage call with [place] [id number] Pt reports upper abdominal pain since last night. Pt has had diarrhea, watery, >5x and vomiting >7x today. Pt is unable to eat but, is drinking liquids which causes more vomiting. Advised to drink liquids in small sips constantly and Pt agreed. Pt reports headache neg for fever. Pt abdominal pain comes and goes with the diarrhea. Pt urine is light yellow/clear. Advised Pt to come to [facility] today and Pt agreed. Home care reviewed. Protocol Used: Abdominal Pain - Upper (Adult) Protocol-Based Disposition: See in Office or Video Visit Today or Tomorrow Video visit not offered Positive Triage Question: * Mild to Moderate pain that comes and goes (cramps) lasts > 24 hours * All higher-acuity triage questions were negative Care Advice Discussed: * Reassurance and Education - Stomach Pain * Drink Clear Fluids * Diet * Antacid Medicine * Reasons To Call Back - Abdomen pain is constant and present for more than 2 hours. - You become worse * Telephone Encounter - Aminah Rosenthal - 01/13/2023 12:05 PM EDT Symptom: Abdominal Pain - Male vomiting and diarrhea Outcome: Schedule an appointment to be seen within 24 hours Reason: No high acuity concerns reported by caller The caller accepted this outcome documented in this encounter Plan of Treatment Upcoming Encounters Date Type Department Care Team (Late st Contact Info) Description 11/29/2024 10:00 AM EST Office Visit [facility] ADULT [facility] [address] [place] [address] Kristen Perez 12/07/2024 11:15 AM EST Office Visit [facility] [address] [place] [address] Tor Crews MD [address] [place] [phone] documented as of this encounter Visit Diagnoses Not on filedocumented in this encounter Care Teams Sap Pi Architect Relationship Specialty Start Date End Date Tor Crews MD [address] [place] [phone] PCP - General Internal Medicine 07/21/14 documented as of this encounter
--- OUTSIDE RECORDS SUMMARY | 2024-11-23 11:25 | XMS_ITS | Encounter Summary ---
Author Organization [employer] Address [address] [facility] 7t [place] [address] Care Team Providers Care Computer Networking Instructor Name Role Phone Tor Crews MD Primary Care Provide r Encounter Details Date Type Department Care Team (Late st Contact Info) Description 12/17/2022 Orders Only [facility] [address] [place] [phone] Ally Rodríguez LPN Social History Tobacco Use Types Packs/Day [...] Description 11/29/2024 10:00 AM EST Office Visit [facility] ADULT DENTAL [address] [place] [phone] Kristen Perez 12/07/2024 11:15 AM EST Office Visit [facility] [address] [place], [place] [phone] Tor Crews MD [address] [place] [address] documented as of this encounter Visit Diagnoses Not on filedocumented in this encounter Care Teams Computer Networking Instructor Relationship Specialty Start Date End Date Tor Crews MD [address] [place] [address] PCP - General Internal Medicine 07/21/14 documented as of this encounter
--- OUTSIDE RECORDS SUMMARY | 2024-11-23 11:25 | XMS_ITS | Clinical Summary ---
Author Organization [facility] Address [address] [place] [phone] Phone Care Team Providers Care Training Coordinator Name Role Phone oTr Guzman MD Primary Care Provider Unav ailable Allergies No known active allergies Medications carvedilol (COREG) 25 MG tablet Take 2 tablets by mouth 2 (two) times a day Active cholecalcifero l (VITAMIN D-3) 25 MCG (1000 UT) capsule Take 1 capsule by mouth 1 (one) time each day Active digoxin (LANOXIN) 250 MCG tablet Take 1 tablet by mouth 1 (one) time each day Active furosemide (LASIX) 80 MG tablet Take 1 tablet by mouth 1 (one) time each day Active glipiZIDE (GLUCOTROL XL) 5 MG 24 hr tablet Take 1 tablet by mouth 1 (one) time each day Active omeprazole (PriLOSEC) [address] capsule Take 1 capsule by mouth 1 (one) time each day Active spironolactone (ALDACTONE) 25 MG tablet Take 1 tablet by mouth 1 (one) time each day Active traZODone (DESYREL) 150 MG tablet Take 1 tablet by mouth 1 (one) time each day Active Aspirin Low Dose 81 MG EC tablet Take 1 tablet by mouth at bed time 1 Active hydrOXYzine (VISTARIL) 50 MG capsule Take 1 capsule by mouth at night if needed 1 Active NovoLOG FLEXPEN 100 UNIT/ML injection INJECT NO INSULIN IF BG <150, INJECT 3 UNITS SUBCUTANEOUSLY FOR BG 151-200, INJECT 5 UNITS FOR BG 201-250, INJECT 8 UNITS IF BG IS 251-300, 1 Active Corlanor 7.5 MG tablet Take 1 tablet by mouth 2 (two) times a day 1 Active loratadine (CLARITIN) 10 MG tablet Take 1 tablet by mouth 1 (one) time each day 1 Active mirtazapine (REMERON) 45 MG tablet Take 1 tablet by mouth at bed time 1 Active Entresto 97-103 MG per tablet Take 1 tablet by mouth 2 (two) times a day 1 Active sertraline (ZOLOFT) 100 MG tablet Take 1.5 tablets by mouth at bed time 1 Active Cholecalcifero l (Vitamin D3) 25 MCG tablet Take 1 tablet by mouth 1 (one) time each day 1 Active metFORMIN (GLUCOPHAGE) 500 MG tablet Take 1 tablet by mouth 2 (two) times a day 1 Active albuterol (2.5 MG/3ML) 0.083% nebulizer solution INHALE 1 AMPULE USING A NEBULIZER THREE TIMES DAILY 2 Active Jardiance 25 MG tablet 2 Active Trulicity 1.5 MG/0.5ML solution pen-injector 2 Active omega-3 (FISH OIL) 1000 MG capsule 2 Active fluticasone (FLONASE) 50 MCG/ACT nasal spray INSTILL 2 SPRAYS IN EACH NOSTRIL ONCE DAILY 2 Active insulin glargine (LANTUS) 100 UNIT/ML injection Inject 46 Units under the skin 1 (one) time each day 2 Active fenofibrate (TRICOR) 54 MG tablet Take 1 tablet by mouth 1 (one) time each day 3 Active Active Problems Problem Noted Date Diagnosed Date Current drinker 07/15/2023 08/28/2023 Overview (08/28/2023): Last Assessment & Plan: Patient's mentioned that he drinks heavily 3 [...] failure and liver damage. Pt verbalizes understanding Periodontal disease 07/10/2023 08/28/2023 Extruded tooth 07/10/2023 08/28/2023 Chronic anal fissure 05/13/2023 06/11/2023 Overview (06/11/2023): Last Assessment & Plan: Pt was seen by Dr Stallings 07/27/2013 and underwent a lateral sphincterotomy Primary osteoarthritis of right knee 05/13/2023 06/11/2023 Overview (06/11/2023): Last Assessment & Plan: Pt here for a follow up He [...] ortho if any issues in the future Obesity 03/04/2023 06/11/2023 Overview (06/11/2023): Last Assessment & Plan: Patient has been counseled and educated about diet and exercise. Personal goal of weight loss discussedPatient has comorbidity of: DM Other male erectile dysfunction 02/25/2023 06/11/2023 Overview (06/11/2023): Last Assessment & Plan: Testosterone free and total to r/o hypogonadism 08/16/2015 Normal I asked him to discuss with Dr. Nielson regarding medications such as Viagra. Patient encounter status 02/25/2023 023 Overview (06/11/2023): Last Assessment & Plan: Colonoscopy: January 25/2022 Dr carreon , diverticulosis and hemorrhoids. 10 year follow up recommended Genuine stress incontinence 11/01/2022 Diverticulosis of colon 09/11/2022 Screening for malignant neoplasm of colon 2021 Hypertension 08/22/2021 Acute nontraumatic kidney injury 03/01/2021 Stage 3b chronic kidney disease 03/01/2021 Hypertensive disorder 03/01/2021 Hypertensive renal disease 03/01/2021 Type 2 diabetes mellitus 03/01/2021 Ingrowing toenail 10/06/2017 Chronic systolic heart failure 07/31/2017 Mixed hyperlipidemia 10/26/2015 Depressive disorder 08/25/2013 Pneumonia 01/31/2013 Overview (07/27/2024): Replacing diagnoses that were inactivated after the 07/27/24 Regulatory Import Congestive heart failure 01/21/2013 Obstructive sleep apnea syndrome 01/21/2013 Gastroesophageal reflux disease 01/11/2013 Cardiomyopathy 01/11/2013 Immunizations Name Administration Dates Next Due Influenza Split 08/25/2013 Influenza, Quadrivalent, With Preservative 10/26 Pneumococcal Conjugate Pcv 20 04/17/2023 Shingrix 04/17/2023,02/13/2023 Tdap 10/26/2015 Family History Medical History Relation Comments Diabetes Father Heart disease Father Hypertension Father Kidney disease Father Relation Status Comments Father Social History Tobacco Use Types Packs/Day Years Used Date Smoking Tobacco: Never Smokeless Tobacco: Never Tobacco Cessation:Counseling Given: Not Answered Alcohol Use Standard Drinks/Week Comments Yes 0 (1 standard drink = 0.6 oz pure alcohol) Alcoholic Drinks/day: Occasional social drink Sex and Gender Information Value Date Recorded Sex Assigned at Not on file Legal Sex Male 4:43 PM EST Gender Identity Not on file Sexual Orientation Not on file Last Filed Vital Signs Vital Sign Reading Time Taken Comments Blood Pressure 82/50 07/16/2023 2:02 PM EDT Pulse 63 07/16/2023 2:02 PM EDT Temperature - - Respiratory Rate - - Oxygen Saturation 97% 09/11/2022 2:37 PM EST Inhaled Oxygen Concentration - - Weight 91.8 kg (202 lb 6.4 oz) 07/16/2023 2:02 P M EDT Height 167.6 cm (5' 6 ) 03/03/2020 12:00 PM EDT Body Mass Index 32.67 03/03/2020 12:00 PM EDT Plan of Treatment Health Maintenance Due Date Last Done Comments Hepatitis B Vaccine (1 of 3 - 19+ 3-dose series) 1990 Colorectal Cancer Screening: Annual FOBT 2020 Colorectal Cancer Screening: Sigmoidoscopy 2020 Diabetes: Ophthalmology Exam 11/27/2020 Diabetes: Pedal Pulse Checked 11/27/2020 Diabetes: Sensory Foot Exam 11/27/2020 Diabetes: Visual Foot Exam 11/27/2020 Diabetes: Hemoglobin A1C 10/14/2023 023, 05/13/2023, 02/05/2023 Influenza Vaccine (#1) 2024 10/26/2015, 2012 Colorectal Cancer Screening: Colonoscopy 01/26/2032 01/25/2022 Pneumococcal Vaccine: Pediat rics (0 to 5 Years) and At-Risk Patients (6 to 64 Years) Completed 04/17/2023 [place] [id number] [facility] ([id number]) [facility] ([id number]) Care Teams Training Coordinator Relationship Specialty Start Date End Date Tor Guzman MD PCP - General 11/06/20
[2024-11-23 11:55] LABS: Parathyroid Hormone Intact 18.6 pg/mL (8.7-77.1)
[2024-11-23 11:59] LABS: Anion Gap 10 (12-20); Blood Urea Nitrogen 17 mg/dL (9-16); Calcium 10.3 mg/dL (8.4-10.2); Carbon Dioxide 24 mmol/L (22-29); Chloride 110 mmol/L (96-108); Estimated Glomerular Filt Rate 47; Potassium 4.3 mmol/L (3.3-5.1); Sodium 140 mmol/L (135-145)
[2024-11-23 12:04] LABS: Vitamin D 25-OH Total 31.5 ng/mL (>30)
== END 2024-11-23 10:27 | disposition home or self-care (01) ==
LOC: HO.LAB 10:26
PROVIDERS: PCP Internal Medicine; Visit Provider Internal Medicine Nephrology
DX: N18.32 Chronic kidney disease, stage 3b (principal); I10 Essential (primary) hypertension
CPT/HCPCS: 36415; 80051; 82306; 82310; 82565; 83970; 84520; 85025

== ENCOUNTER → 2024-11-23 23:59 | Outpatient (BNV) | payer OTHER, SELFPAY ==
--- NOTE | 2024-12-01 15:55 | MHC.OFFVIS ---
Intake Visit Reasons: Remote ICD check- [employer] Allergies No Known Allergies [No Known Allergies*] Allergy (Verified 12/01/24 10:44) REPLACED BY [facility] Medical History ICD (implantable cardioverter-defibrillator) lead failure Biventricular ICD (implantable cardioverter-defibrillator) in place Nonischemic cardiomyopathy GERD (gastroesophageal reflux disease) Asthma NANO (obstructive sleep apnea) Obesity due to excess calories HLD (hyperlipidemia) Type 2 diabetes mellitus with chronic kidney disease Heart failure with reduced ejection fraction Implantable cardioverter-defibrillator lead failure High cholesterol Diabetes HTN (hypertension) Pacemaker Surgical History S/P ICD (internal cardiac defibrillator) procedure History of tonsillectomy Hx of cardiac cath Hx of transesophageal echocardiography (DAWN) for monitoring History of permanent cardiac pacemaker placement (~2008) History of circumcision Family History Father HTN (hypertension) Diabetes CVD (cardiovascular disease) Hypercholesterolemia Mother Hypercholesterolemia HTN (hypertension) Diabetes Social History Household Members: Spouse Household Members Other:: SO:Thu Housing: Apartment Do you presently have visiting nurse or other home services: No Alcohol intake: current Alcohol intake frequency: 3 or more drinks per day Patient Tobacco Use Status: Never used Tobacco Tobacco use type: Cigarette service: No Office Procedures Cardiac Device Check Cardiac Device Check Details: Remote ICD report generated 11/22/2024. ICD function is adequate. Bi V pacing 97% of the time [id number] Cardiac Interrogation, implant defibrillator w/interim Procedure code (CPT) selection complete Assessment & Plan Assessment & Plan (1) S/P ICD (internal cardiac defibrillator) procedure: Comment: [employer]. Implant date 04/26/[address] Cota. Device Moment[employer] MASTER AUTOMOTIVE GLASS TECHNICIAN-D [id number] Code(s): Z95.810 - Presence of automatic (implantable) cardiac defibrillator Category: Surgical Plan: See above Coding Level of Care Code Procedure Only Diagnoses S/P ICD (internal cardiac defibrillator) procedure Z95.810 CPT Codes Cardiac Device Check - Cardiac Device 13: [id number] Cardiac Interrogation, implant defibrillator w/interim ([id number])
== END ==
PROVIDERS: PCP Internal Medicine; Visit Provider Internal Medicine Cardiovascular Disease
DX: Z45.02 Encounter for adjustment and management of automatic implantable cardiac defibrillator (principal)
CPT/HCPCS: 93295

== ENCOUNTER 2024-12-01 10:06 | Outpatient (AMB) | payer OTHER, SELFPAY ==
--- NOTE | 2024-12-01 10:43 | HO.NEPHOV ---
Vital Signs 12/01/24 10:45 Height 5 ft 8 in Weight 205 lb 8 oz BMI 31.2 BP 90/58 L Blood Pressure Location Rt brachial Position Sitting Pulse 78 Pulse Source Pulse Oximeter Pulse Oximetry (%) 96 Oxygen Delivery Method Room Air Intake Visit Reasons: CKD-Conf Slitting Machine Operator Helper Required: No Accompanied by: Significant Other Allergies No Known Allergies [No Known Allergies*] Allergy (Verified 12/01/24 10:44) HPI Comments Details: Ian was seen in follow-up his chronic kidney disease. He has cardiomyopathy. He is followed up in [place] for his heart issues. His diabetic control is better. He is now compliant with medications. His was physically present during the encounter. He denies any chest pain, shortness of breath, nausea, vomiting, diarrhea, pedal edema or dizziness. He denies taking nonsteroidal anti-inflammatory medications. His recent serum creatinine is close to baseline [facility] Medical History ICD (implantable cardioverter-defibrillator) lead failure Biventricular ICD (implantable cardioverter-defibrillator) in place Nonischemic cardiomyopathy GERD (gastroesophageal reflux disease) Asthma NANO (obstructive sleep apnea) Obesity due to excess calories HLD (hyperlipidemia) Type 2 diabetes mellitus with chronic kidney disease Heart failure with reduced ejection fraction Implantable cardioverter-defibrillator lead failure High cholesterol Diabetes HTN (hypertension) Pacemaker Surgical History S/P ICD (internal cardiac defibrillator) procedure History of tonsillectomy Hx of cardiac cath Hx of transesophageal echocardiography (DAWN) for monitoring History of permanent cardiac pacemaker placement (~2008) History of circumcision Family History Father HTN (hypertension) Diabetes CVD (cardiovascular disease) Hypercholesterolemia Mother Hypercholesterolemia HTN (hypertension) Diabetes Social History Household Members: Spouse Household Members Other:: SO:Thu Housing: Apartment Do you presently have visiting nurse or other home services: No Alcohol intake: current Alcohol intake frequency: 3 or more drinks per day Patient Tobacco Use Status: Never used Tobacco Tobacco use type: Cigarette service: No Review of Systems Const All systems reviewed & are unremarkable except as noted in HPI and below Physical Exam Vital Signs: Last Vital Signs Pulse 78 12/01/24 10:45 BP 90/58 L 12/01/24 10:45 Pulse Ox 96 12/01/24 10:45 Oxygen Delivery Method Room Air 12/01/24 10:45 BMI result Body Mass Index 31.2 Const General: comfortable and no acute distress Orientation/consciousness: patient oriented x3 HEENT Head: Yes normocephalic Mouth: Normal oral and palatal mucosa present Eyes EOM: EOMs intact bilaterally Neck Neck: Yes supple Resp Auscultation: clear to auscultation bilaterally Cardio Jugular venous distension: no JVD Rate: regular rate GI Palpation (GI): Soft to palpation Auscultation: normal bowel sounds General: Yes no CVA tenderness Back/Spine/Pelvis Back: no CVA tenderness Skin General skin exam: no rashes or lesions noted Neuro General: patient oriented x3 and moves all extremities Extrem General: Yes no pedal edema Results Reviewed Nephrology Results: Hgb 14.5 g/dl (14.0-18.0) 11/23/24 WBC 7.3 X10*3/uL (4.8-10.8) 11/23/24 Plt Count 231 X10*3/uL (160-400) 11/23/24 Sodium 140 mmol/L (135-145) 11/23/24 Potassium 4.3 mmol/L (3.3-5.1) 11/23/24 Chloride 110 mmol/L (96-108) H 11/23/24 Carbon Dioxide 24 mmol/L (22-29) 11/23/24 BUN 17 mg/dL (9-16) H 11/23/24 Creatinine 1.56 mg/dL (0.5-1.4) H 11/23/24 Calcium 10.3 mg/dL (8.4-10.2) H 11/23/24 PTH Intact 18.6 pg/mL (8.7-77.1) 11/23/24 Assessment & Plan Assessment & Plan (1) CKD stage G3b/A1, GFR 30-44 and albumin creatinine ratio <30 mg/g: Code(s): N18.32 - Chronic kidney disease, stage 3b Category: Medical (2) HTN (hypertension): Code(s): I10 - Essential (primary) hypertension Category: Medical Qualifiers: Hypertension type: primary hypertension Qualified Code(s): I10 - Essential (primary) hypertension Gerri Sosa has chronic kidney disease & the serum creatinine is close to baseline now. His blood sugar control is better. He is on Jardiance as well as Entresto. He is followed up closely in [place] for his cardiomyopathy. If his cardiac function and renal function decline he will need evaluation for heart and kidney transplantation. I reiterated the need for compliance with medications and keeping his blood sugar at goal. He is also on spironolactone as well with serum K being normal . His volume status is optimal. He should avoid nonsteroidal anti-inflammatory medications. All his and his 's questions were answered. Follow-up blood work was ordered. Follow-up appointment was given Orders: Orders Creatinine 3 Months N18.32 - Chronic kidney disease, stage 3b Blood Urea Nitrogen 3 Months N18.32 - Chronic kidney disease, stage 3b Electrolytes 3 Months N18.32 - Chronic kidney disease, stage 3b Coding Level of Care Code Est Pt Level 4 (52453) Diagnoses CKD stage G3b/A1, GFR 30-44 and albumin creatinine ratio <30 mg/g N18.32 Primary hypertension I10 Hypertension type: primary hypertension
[2024-12-01 10:45] VITALS: BP 90/58; PULSE 78; O2SAT 96; BMI 31.2
--- OUTSIDE RECORDS SUMMARY | 2024-12-01 10:59 | XMS_ITS | Encounter Summary ---
Author Organization [employer] Address [address] [facility] [address] 7[address] [place] [address] Care Team Providers Care Auger Operator Name Role Phone Tor Crews MD Primary Care Provide r Reason for Visit * Reason Comments Med Refill Encounter Details Date Type Department Care Team (Late st Contact Info) Description 12/19/2023 Refill [facility] [address] [place], [place] [phone] Sinai Sesay MD [address] [place] [address] Social History Tobacco Use Types Packs/Day Years [...] Care Team (Late st Contact Info) Description 12/02/2024 1:30 PM EST Medication Management [facility] [address] [place] [phone] 12/07/2024 11:15 AM EST Office Visit [facility] [address] [place] [phone] Tor Crews MD [address] [place] [phone] 06/01/2025 10:00 AM EDT Office Visit [facility] ADULT DENTAL [address] [place] [phone] Kristen Perez documented as of this encounter Visit Diagnoses Not on filedocumented in this encounter Additional Health Concerns Assessment Noted Time PHQ-9 Depression Total Score: 4 03/04/20 23 2:58 PM EDT documented as of this encounter Care Teams Auger Operator Relationship Specialty Start Date End Date Tor Crews MD [address] [place] [phone] PCP - General Internal Medicine 07/21/14 documented as of this encounter
--- OUTSIDE RECORDS SUMMARY | 2024-12-01 10:59 | XMS_ITS | Encounter Summary ---
Author Organization [employer] Address [address] [facility] [address] [address] [place] [address] Care Team Providers Care Spine Supervisor Name Role Phone Tor Crews MD Primary Care Provide r Reason for Visit * Reason Comments Med Refill Encounter Details Date Type Department Care Team ([facility] st Contact Info) Description 08/07/2023 Refill [facility] [address] [place], [place] [phone] Tor Crews MD [address] [place], [place] [phone] Hypertriglyceridemia Social History Tobacco Use Types Packs/Day [...] Description 12/02/2024 1:30 PM EST Medication Management [facility] [address] [place] [phone] 12/07/2024 11:15 AM EST Office Visit [facility] [address] [place] [phone] Tor Crews MD [address] [place] [address] 06/01/2025 10:00 AM EDT Office Visit [facility] ADULT DENTAL [address] [place] [address] Kristen Perez documented as of this encounter Visit Diagnoses Diagnosis Hypertriglyceridemia Pure hyperglyceridemia documented in this encounter Additional Health Concerns Assessment Noted Time PHQ-9 Depression Total Score: 4 03/04/20 23 2:58 PM EDT documented as of this encounter Care Teams Spine Supervisor Relationship Specialty Start Date End Date Tor Crews MD [address] [place] [phone] PCP - General Internal Medicine 07/21/14 documented as of this encounter
--- OUTSIDE RECORDS SUMMARY | 2024-12-01 11:00 | XMS_ITS | Encounter Summary ---
Author Organization [employer] Address [address] [facility] 7t [place] [address] Care Team Providers Care Design Leader Name Role Phone Tor Crews MD Primary Care Provide r Encounter Details Date Type Department Care Team (Late st Contact Info) Description 10/30/2022 Orders Only [facility]EDS [address] [place] [address] Mahsa Bustillos LPN Social History Tobacco Use [...] Description 12/02/2024 1:30 PM EST Medication Management [facility] [address] [place] [phone] 12/07/2024 11:15 AM EST Office Visit [facility] [address] [place] [phone] Tor Crews MD [address] [place] [phone] 06/01/2025 10:00 AM EDT Office Visit [facility] ADULT DENTAL [address] [place] [phone] Kristen Perez documented as of this encounter Visit Diagnoses Not on filedocumented in this encounter Care Teams Design Leader Relationship Specialty Start Date End Date Tor Crews MD [address] [place] [address] PCP - General Internal Medicine 07/21/14 documented as of this encounter
--- OUTSIDE RECORDS SUMMARY | 2024-12-01 11:00 | XMS_ITS | Encounter Summary ---
Author Organization [employer] Address [address] [facility] 7t [place] [address] Care Team Providers Care Logging Shovel Operator Name Role Phone Tor Crews MD Primary Care Provide r Encounter Details Date Type Department Care Team (Latest Contact Info) Description 04/26/2021 Abstract [facility] CONVERSIONS Dental, Provider, DDS Social History Tobacco [...] Description 12/02/2024 1:30 PM EST Medication Management [facility] [address] [place] [phone] 12/07/2024 11:15 AM EST Office Visit [facility] [address] [place] [phone] Tor Crews MD [address] [place] [phone] 06/01/2025 10:00 AM EDT Office Visit [facility] ADULT DENTAL [address] [place] [phone] Kristen Perez documented as of this encounter Visit Diagnoses Not on filedocumented in this encounter Care Teams Logging Shovel Operator Relationship Specialty Start Date End Date Tor Crews MD [address] [place] [phone] PCP - General Internal Medicine 07/21/14 documented as of this encounter
--- OUTSIDE RECORDS SUMMARY | 2024-12-01 11:00 | XMS_ITS | Encounter Summary ---
Author Organization [employer] Address [address] [facility] 7t [place] [address] Care Team Providers Care Granite Installer Name Role Phone Tor Crews MD Primary Care Provide r Reason for Visit * Reason Comments Med Refill Encounter Details Date Type Department Care Team ([facility] st Contact Info) Description 11/12/[address] [facility] [address] [place], [place] [phone] Brooke Meraz MD [address] [place] [address] Type 2 diabetes mellitus without complication, with long-term current use of insulin ([facility]) Social History Tobacco Use Types Packs/Day [...] Description 12/02/2024 1:30 PM EST Medication Management [facility] [address] [place] [phone] 12/07/2024 11:15 AM EST Office Visit [facility] [address] [place] [phone] Tor Crews MD [address] [place] [phone] 06/01/2025 10:00 AM EDT Office Visit [facility] ADULT DENTAL [address] [place] [phone] Kristen Perez documented as of this encounter Visit Diagnoses Diagnosis Type 2 diabetes mellitus without complication, with long-term current use of insulin ([facility]) documented in this encounter Additional Health Concerns Assessment Noted Time PHQ-9 Depression Total Score: 4 03/04/20 23 2:58 PM EDT documented as of this encounter Care Teams Granite Installer Relationship Specialty Start Date End Date Tor Crews MD [address] [place] [phone] PCP - General Internal Medicine 07/21/14 documented as of this encounter
--- OUTSIDE RECORDS SUMMARY | 2024-12-01 11:00 | XMS_ITS | Encounter Summary ---
Author Organization [employer] Address [address] [facility] [address] [place] [address] Care Team Providers Care Deskidding Machine Operator Name Role Phone Tor Crews [...] Description 12/02/2024 1:30 PM EST Medication Management [facility] [address] [place] [phone] 12/07/2024 11:15 AM EST Office Visit [facility] [address] [place] [address] Tor Crews MD [address] [place] [phone] 06/01/2025 10:00 AM EDT Office Visit [facility] ADULT DENT[facility] [address] [place] [address] Kristen Perez documented as of this encounter Visit Diagnoses Not on filedocumented in this encounter Additional Health Concerns Assessment Noted Time PHQ-9 Depression Total Score: 4 03/04/20 23 2:58 PM EDT documented as of this encounter Care Teams Deskidding Machine Operator Relationship Specialty Start Date End Date Tor Crews MD [address] [place] [phone] PCP - General Internal Medicine 07/21/14 documented as of this encounter
--- OUTSIDE RECORDS SUMMARY | 2024-12-01 11:00 | XMS_ITS | Encounter Summary ---
Author Organization [employer] Address [address] [facility] 7t [place] [address] Care Team Providers Care Drafting Instructor Name Role Phone Tor Crews MD Primary Care Provide r Reason for Visit * Reason Comments Med Refill Encounter Details Date Type Department Care Team (Late st Contact Info) Description 05/23/2023 Refill [facility] [address] [place] [phone] Tor Crews MD [address] [place] [address] [phone] Acute pain of right knee Social History [...] Description 12/02/2024 1:30 PM EST Medication Management [facility] [address] [place] [address] [phone] 12/07/2024 11:15 AM EST Office Visit [facility] [address] [place] [address] [phone] Tor Crews MD 230 [place] [address] 06/01/2025 10:00 AM EDT Office Visit [facility] ADULT DENTAL [address] [place] [address] Kristen Perez documented as of this encounter Visit Diagnoses Diagnosis Acute pain of right knee documented in this encounter Additional Health Concerns Assessment Noted Time PHQ-9 Depression Total Score: 4 03/04/20 23 2:58 PM EDT documented as of this encounter Care Teams Drafting Instructor Relationship Specialty Start Date End Date Tor rCews MD [address] [place] [address] PCP - General Internal Medicine 07/21/14 documented as of this encounter
--- OUTSIDE RECORDS SUMMARY | 2024-12-01 11:00 | XMS_ITS | Encounter Summary ---
Author Organization [employer] Address [address] [facility] [address]t [place] [address] Care Team Providers Care Skeet Operator Name Role Phone Tor Crews MD Primary Care Provide r Encounter Details Date Type Department Care Team ([facility] st Contact Info) Description 10/15/2024 Orders Only [facility] [address] [place], [place] [phone] Arcelia Watkins ANP [address] [place], [place] [phone] Social History Tobacco Use Types Packs/Day Years [...] Description 12/02/2024 1:30 PM EST Medication Management [facility] [address] [place] [address] 12/07/2024 11:15 AM EST Office Visit [facility] [address] [place] [address] Tor Crews MD [address] [place] [address] 06/01/2025 10:00 AM EDT Office Visit [facility] ADULT DENTAL [address] [place] [address] Kristen Perez documented as of this encounter Visit Diagnoses Not on filedocumented in this encounter Additional Health Concerns Assessment Noted Time PHQ-9 Depression Total Score: 4 03/04/20 23 2:58 PM EDT documented as of this encounter Care Teams Skeet Operator Relationship Specialty Start Date End Date Tor Crews MD [address] [place] [phone] PCP - General Internal Medicine 07/21/14 documented as of this encounter
--- OUTSIDE RECORDS SUMMARY | 2024-12-01 11:00 | XMS_ITS | Encounter Summary ---
Author Organization [employer] Address [address] [facility] 7t [place] [address] Care Team Providers Care Healthcare Or Medical Name Role Phone Tor Crews MD Primary Care Provide r Reason for Visit * Reason Comments Med Refill Encounter Details Date Type Department Care Team ([facility] st Contact Info) Description 11/18/2024 Refill [facility] 230 [place], [place] [phone] Tor Crews MD 230 [place], [place] [phone] Type 2 diabetes mellitus without complications (CMS/HCC) [...] Description 12/02/2024 1:30 PM EST Medication Management [facility] [address] [place] [phone] 12/07/2024 11:15 AM EST Office Visit [facility] [address] [place] [address] Tor Crews MD [address] [place] [phone] 06/01/2025 10:00 AM EDT Office Visit [facility] ADULT DENTAL [address] [place] [phone] Kristen Perez documented as of this encounter Visit Diagnoses Diagnosis Type 2 diabetes mellitus without complications (CMS/HCC) documented in this encounter Additional Health Concerns Assessment Noted Time PHQ-9 Depression Total Score: 4 03/04/20 23 2:58 PM EDT documented as of this encounter Care Teams Healthcare Or Medical Relationship Specialty Start Date End Date Tor Crews MD [address] [place] [phone] PCP - General Internal Medicine 07/21/14 documented as of this encounter
--- OUTSIDE RECORDS SUMMARY | 2024-12-01 11:00 | XMS_ITS | Encounter Summary ---
Author Organization [employer] Address [address] [facility] 7t [place] [address] Care Team Providers Care Labor Contractor Name Role Phone Tor Crews MD Primary Care Provide r Reason for Visit * Reason Comments Hospital Follow-up Encounter Details Date Type Department Care Team ([facility] st Contact Info) Description 11/18/2024 1:30 PM EST Office Visit [facility] [address] [place], [place] [phone] Tor Crews MD 230 [place], [place] [phone] Hospital discharge follow-up (Primary Dx); Mild intermittent asthma without complication; Essential hypertension; CKD stage 3 secondary to diabetes ([facility]); Type 2 diabetes mellitus with stage 3b chronic kidney disease, with long-term current use of insulin ([facility]); Class 1 obesity due to excess calories [...] for a HDF He was admitted to [facility] [place] 10/21-10/25/2024 After he presented with worsening [...] loss. CKD stage 3 secondary to diabetes ([facility]) Under the care of Nephrology, last seen 09/03/2024 Dr. 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) Pt here for a f/u Blood glucose log shows BG ranging between 99 296 Hgb A1c 09/21/2024 was: 9.2 from 9.7 Microalbumin level 12/25/2021 was 5 Eye exam: 01/23/2022 Currently on a regimen of: Lantus 46 units sc qpm, Humalog sliding scale, Jardiance 25 mg, Ozempic 0.5 once a week His Metformin was restarted by Supervisor [employer]elt in [place] 500 mg po BID once a day [...] disease, with long-term current use of insulin ([facility]) Pt here for a f/u Blood glucose log shows BG ranging between 99 296 Hgb A1c 09/21/2024 was: 9.2 from 9.7 Microalbumin level 12/25/2021 was 5 Eye exam: 01/23/2022 Currently on a regimen of: Lantus 46 units sc qpm, Humalog sliding scale, Jardiance 25 mg, Ozempic 0.5 once a week His Metformin was restarted by Supervisor Remelt in [place] 500 mg po BID once a day [...] Problem(s): CKD stage 3 secondary to diabetes (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 [address] [place] [phone] 12/07/2024 11:15 AM EST Office Visit [facility] [address] [facility] [place] [address] Tor Crews MD [facility] [place] [address] 06/01/2025 10:00 AM EDT Office Visit [facility] ADULT DENTAL [address] [place] [address] Kristen Perez Scheduled Orders Name Type Priority Associated Diagnoses Orde r Schedule Basic Metabolic Panel Lab Routine Hospital discharge follow-up Ordered: 11/18/2024 documented as of this encounter Visit Diagnoses Diagnosis Hospital discharge follow-up- Primary Other follow-up examination Mild intermittent asthma without complication Essential hypertension Unspecified essential hypertension CKD stage 3 secondary to diabetes ([facility]) Type 2 diabetes mellitus with stage 3b chronic kidney disease, with long-term current use of insulin ([facility]) Class 1 obesity due to excess calories with serious comorbidity and body mass index (BMI) of 30.0 to 30.9 in adult Dietary counseling Dietary surveillance and counseling Exercise counseling documented in this encounter Additional Health Concerns Assessment Noted Time PHQ-9 Depression Total Score: 4 03/04/20 23 2:58 PM EDT documented as of this encounter Care Teams Labor Contractor Relationship Specialty Start Date End Date Tor Crews MD [facility] [place] [address] PCP - General Internal Medicine 07/21/14 documented as of this encounter
--- OUTSIDE RECORDS SUMMARY | 2024-12-01 11:00 | XMS_ITS | Clinical Summary ---
Author Organization [employer] Address [address] [facility] [address] [place] [address] Care Team Providers Care Grinder Set Up Operator Name Role Phone Tor Crews MD [...] 2 diabetes mellitus without complication, unspecified whether custodial insulin use (CMS/[facility]) take 1 tablet by oral route every [...] MG EC tabletIndication s:Cardiomyopathy , unspecified type (CMS/HCC) TAKE 1 TABLET BY MOUTH EVERY EVENING 90 tablet 3 024 Active digoxin (Lanoxin) 250 MCG tab;et Take 250 mcg by mouth in the morning. 024 Active fluticasone (Flonase) 50 MCG/ACT nasal sprayIndications :Seasonal allergies INSTILL 2 SPRAYS IN EACH NOSTRIL ONCE DAILY. SHAKE GENTLY. PRIME BEFORE FIRST USE. CLEAN DIRECTED 16 g 3 024 Active omeprazole (PriLOSEC) 40 MG [...] disease, with long-term current use of insulin ([facility]) Use to test blood sugar 3 times daily 100 each 12 024 2024 Active Lancets miscIndications: Type 2 diabetes mellitus with stage 3b chronic kidney disease, with long-term current use of insulin ([facility]) Use to test blood sugar 3 times daily 100 each 024 Active Blood Glucose Monitoring Suppl (FreeStyle Stendal Lite) w/Device kitIndications:T ype 2 diabetes mellitus with stage 3b chronic kidney disease, with long-term current use of insulin ([facility]) Use to test blood sugar 3 times [...] complication, with long-term current use of insulin ([facility]) INJECT 46 UNITS SUBCUTANEOUSLY AT BEDTIME 15 mL 3 025 Active Entresto 24-26 MG tablet Take 1 tablet by mouth 2 times daily. 025 Active semaglutide (Ozempic) 2 MG/1.5ML solution pen-injectorIndi cations:Type 2 diabetes mellitus with stage 3b chronic kidney disease, with long-term current use of insulin ([facility]) Inject 1 mg under the skin 1 (one) time per week. 2 each 12 025 Active glyBURIDE (Diabeta) 5 MG tabletIndication s:Type 2 diabetes mellitus with stage 3b chronic kidney disease, with long-term current use of insulin ([facility]) Take 1 tablet (5 mg) by mouth 2 times daily. 60 tablet 1 025 Active triamcinolone (Kenalog) 0.1 % cream Apply topically if needed in the morning and at bedtime (affected area). 30 g 2 025 Active omega-3 (Fish Oil) 1000 MG capsuleIndicatio ns:Mixed hyperlipidemia TAKE 1 CAPSULE BY MOUTH THREE TIMES DAILY 90 capsule 5 025 Active NovoLOG FLEXPEN 100 UNIT/ML penIndications:T ype 2 diabetes mellitus without complication, with long-term current use of insulin (CMS/HCC) INJECT PER SLIDING SCALE FOR BLOOD SUGAR < 150 = DO NOT USE, 151-200 = 3 UNITS, 201-250 = 5U, 251-300 = 8U, 301-350 = 10U, 351-400 = 12U, > 400 = 15U AND CALL DOCTOR 15 mL 3 025 Active amoxicillin (Amoxil) 500 MG capsule Take 4 capsules of amoxicillin 500 mg 1 hour prior dental procedure 12 capsule 025 Active omega-3 (Fish Oil) 1000 MG capsuleIndicatio ns:Mixed hyperlipidemia TAKE 1 CAPSULE BY MOUTH THREE TIMES DAILY 90 capsule 5 024 2024 Discontinued Lantus 100 UNIT/ML injectionIndicat ions:Type 2 diabetes mellitus without complication, with long-term current use of insulin ([facility]) INJECT 46 UNITS SUBCUTANEOUSLY AT BEDTIME 10 mL 3 024 2024 Discontinued NovoLOG FLEXPEN 100 UNIT/ML penIndications:T ype 2 diabetes mellitus without complication, with long-term current use of insulin (CMS/[facility]) INJECT SUBCUTANEOUSLY PER SLIDING SCALE: BLOOD SUGAR < 150 = DO NOT USE, 151-200 = 3 UNITS, 201-250 = 5U, 251-300 = 8U, 301-350 = 10U, 351-400 = 12U, > 400 = 15U AND CALL DOCTOR 15 mL 3 024 2024 Discontinued semaglutide (Ozempic) 2 MG/1.5ML solution pen-injectorIndi cations:Type 2 diabetes mellitus without complication, with long-term current use of insulin ([facility]) Inject 0.5 mg under the skin 1 [...] for a HDF He was admitted to [facility] from 10/21-10/25/2024 After he presented with worsening [...] See image in chart. -Cleaned and used Stow cary to close laceration. -ER precautions discussed. [...] a HDF after a recent admission to [facility] for a syncopal episode. Pt presented to [...] of Carvedilol, Enteresto and Spironoloactone. Followed by valve assembler who recommended to keep all his medications [...] titers were negative, HIV (neg 12/2012 at [facility]) , SAMEER (neg 01/03/2013 at [facility] ) , ADRIÁN level was normal. Pt is s/p ICD placement in 2008 ([place] [employer]) Follows at the HF clinic , last seen 07/2022 Dr. Nielson recommended to Continue current neurohormonal modulation with Entresto, Daily weight monitoring and avoidance of salt loading . Continue aggressive blood pressure control. Encouraged to continue to participate in physical activity as tolerated and participate in weight loss program. He has done extremely well with medical management despite no CARE TRANSITION MGR. He was advised to continue to follow at [facility] for heart transplant evaluation.on annual basis. Last seen 07/14/2024 He was last seen by Dr Nielson 02/25/2024 He is on: Toprol X: 12.5 mg One tablet Daily Entresto 24-26 mg BID And Lasix 40 mg once Daily Had stress test at [facility] 09/14/[address] Rich ECHO 08/05/2024 showed [...] titers were negative, HIV (neg 12/2012 at [facility]) , SAMEER (neg 01/03/2013 at [facility] ) , ADRIÁN level was normal. Pt is s/p ICD placement in 2008 ([place] [employer]) Follows at the HF clinic , [...] extremely well with medical management despite no CARE TRANSITION MGR. He was advised to continue to follow at [facility] for heart transplant evaluation.on annual basis. Last seen 07/14/2024 He was last seen by Dr Nielson 02/25/2024 His Carvedilol was replaced with Toprol X: 12.5 mg One tablet Daily His Entresto was lowered to 24-26 mg BID His Lasix was lowered to 40 mg once Daily by Dr Rich at [facility] Assessment & Plan (03/23/2024 11:09 AM EDT): Patient is here for a f/u He has non-ischemic cardiomyopathy diagnosed in 2008 (etiology ? NANO ? ETOH relate ? Pt gives a Hx of over 20 years of very heavy drinking. Basic blood work to r/o other etiologies: TSH 06/09/2013 was wnl, , Lyme titers were negative, HIV (neg 12/2012 at [facility]) , SAMEER (neg 01/03/2013 at [facility] ) , ADRIÁN level was normal. Pt is s/p ICD placement in 2008 ([place] [employer]) Follows at the HF clinic , last [...] extremely well with medical management despite no CARE TRANSITION MGR. He was advised to continue to follow with Dr Rivas at [facility] for heart transplant evaluation.on annual basis. [...] titers were negative, HIV (neg 12/2012 at [facility]) , SAMEER (neg 01/03/2013 at [facility] ) , ADRIÁN level was normal. Pt is s/p ICD placement in 2008 ([place] [employer]) Follows at the HF clinic , [...] extremely well with medical management despite no CARE TRANSITION MGR. Dr Nielson recommended Follow-up echocardiogram in 1 month's time. He was advised to continue to follow with Dr Rivas at [facility] for heart transplant evaluation.on annual basis. [...] titers were negative, HIV (neg 12/2012 at [facility]) , SAMEER (neg 01/03/2013 at [facility] ) , ADRIÁN level was normal. Pt is s/p ICD placement in 2008 ([employer]) Follows at the HF clinic , last seen 07/2022 Heart failure with reduced ejection fraction with much improved LV ejection fraction 40-45% with much improved symptoms with NYHA class 1 symptoms. Last seen by Dr. Nielson 05/12/2023 He was advised to continue to follow with Dr Rivas at [facility] for heart transplant evaluation.on annual basis. [...] extremely well with medical management despite no CARE TRANSITION MGR. Dr Nielson recommended Follow-up echocardiogram in 1 [...] titers were negative, HIV (neg 12/2012 at [facility]) , SAMEER (neg 01/03/2013 at [facility] ) , ADRIÁN level was normal. last EF 20-25% 2017 Pt is s/p ICD placement in 2008 ([employer]) Follows at the HF clinic , last seen 07/2022 Pt tells me he has a f/u with Dr. Nielson as well He was advised to continue to keep appointment with Dr Rivas at [facility] for heart transplant evaluation. CKD stage 3 secondary to diabetes 12/26/2015 Assessment & Plan (11/18/2024 1:39 PM EST): Under the care of Nephrology, last seen 09/03/2024 Dr. Bonilla his ornament maker hand Lab Results Component Value Date GLUCOSE 340 (H) 10/16/2024 NA 137 10/16/2024 K 3.8 10/16/2024 CO2 20 (L) 10/16/2024 CL 107 10/16/2024 BUN 30 (H) 10/16/2024 CREATININE 1.65 (H) 10/16/2024 Will repeat Assessment & Plan (09/21/2024 12:58 PM EST): Under the care of Nephrology, last seen 09/03/2024 Dr. Bonilla his ornament maker hand Assessment & Plan (07/27/2024 11:47 AM EDT): Under the care of Nephrology, last seen 03/05/2024 Dr. Bonilla his ornament maker hand Assessment & Plan (03/23/2024 11:01 AM EDT): Under the care of Nephrology, last seen 03/05/2024 Dr. Chad campbell ornament maker hand Assessment & Plan (11/25/2023 12:08 PM EST): Under the care of Nephrology, last seen 07/16/2023. Dr. Bonilla his ornament maker hand Assessment & Plan (06/10/2023 9:25 AM EDT): Under the care of Nephrology, last seen 12/2022. I sent a message via [employer] to Dr. Bonilla his ornament maker hand letting him know I am starting patient [...] low fat low cholesterol diet, Referred to Case Sealer. DC Atorvastatin . Start Fenofibrate Follow up with [...] a week His Metformin was restarted by Board Attendant in [place] 500 mg po BID once a day [...] 25 mg, His Metformin was restarted by Board Attendant in [place] 500 mg po BID once a day [...] 25 mg, His Metformin was restarted by Board Attendant in [place] 500 mg po BID once a day [...] 1.5 mg His Metformin was restarted by Board Attendant in [place] 500 mg po BID Plan: No changes [...] a psychotherapist her name is Aj at [facility] . He used to see Dr. Colon but stopped due to lack of transportation His biggest complaint was lack of sleep. I have agreed to prescribe trazodone 100 mg po q hs prn. Obstructive sleep apnea syndrome 01/21/2013 Assessment & Plan (03/23/2024 10:59 AM EDT): Under the care of continuous improvement specialist (Dr Rucker). [facility]en [facility] 01/27/2024 Awaiting Cpap Assessment & Plan (11/25/2023 11:58 AM EST): Sleep study done on 03/08/2013 confirmed the diagnosis of moderately severe NANO. Pt reported compliance with Cpap machine And is now under the care of continuous improvement specialist (Dr Rucker). Awaiting Cpap Assessment & Plan (05/13/2023 8:57 AM EDT): Sleep study done on 03/08/2013 confirmed the diagnosis of moderately severe NANO. Pt reported compliance with Cpap machine And is now under the care of continuous improvement specialist (Dr Rucker). He told me his Cpap was no longer working and needed a new one He was referred back for Sleep study, to sleep clinic. Appointment scheduled for 05/16/2023 Assessment & Plan (03/04/2023 3:01 PM EDT): Sleep study done on 03/08/2013 confirmed the diagnosis of moderately severe NANO. Pt reported compliance with Cpap machine And is now under the care of continuous improvement specialist (Dr Rucker). He tells me his Cpap is no longer working and needs a new one Plan: Sleep study, will refer to sleep clinic Cardiomyopathy 01/11/2013 Gastroesophageal reflux disease 01/11/2013 Resolved Problems Problem Noted Date Diagnosed Date Resolved Date Ingrowing nail, right great toe 10/06/2017 11/25/2023 Assessment & Plan (07/15/2023 3:25 PM EDT): Pt tells me the foxing cutting machine operator requested authorization from PCP to take care of his ingrown toe nail Plan: Podiatry referral Congestive heart failure 01/21/2013 Encounters Date Type Department Care Team Description 11/29/2024 10:00 AM EST Office Visit [facility] [address] [place] [address] Kristen Perez Dental calculus (Primary Dx); Dental plaque; Tartar deposits on teeth; Subgingival dental calculus; Periodontal disease; Encounter for dental examination 11/29/2024 Telephone [facility] [address] [place] [address] Tor Crews MD Chart Prep 11/23/2024 Orders Only GENERIC EXTERNAL DATA DEPARTMENT Provider, Generic External Data 11/20/2024 Refill [facility] [address] [place] [address] Tor Crews MD Mixed hyperlipidemia; Type 2 diabetes mellitus without complication, with long-term current use of insulin (CMS/HCC) 11/18/2024 1:30 PM EST Office Visit [facility] [address] [place] [address] Tor Crews MD Hospital discharge follow-up (Primary Dx); Mild intermittent asthma without complication; Essential hypertension; CKD stage 3 secondary to diabetes (CMS/HCC); Type 2 diabetes mellitus with stage 3b chronic kidney disease, with long-term current use of insulin (CMS/HCC); Class 1 obesity due to excess calories with serious comorbidity and body mass index (BMI) of 30.0 to 30.9 in adult; Dietary counseling; Exercise counseling 11/18/2024 Travel 11/18/2024 Refill [facility] [address] [place] [address] Tor Crews MD Type 2 diabetes mellitus without complications ([facility]) 11/12/2024 Refill [facility] [address] [place] [address] Brooke Meraz MD Type 2 diabetes mellitus without complication, with long-term current use of insulin ([facility]) 11/11/2024 Telephone [facility] [address] [place] [phone] Tor Crews MD Chart Prep 10/26/2024 Patient Outreach [facility] [address] [place] [phone] Tor Crews MD Transition Of Care (Tcm) (HDF- scheduled and SDOH screening completed on 03/23/2024) 10/26/2024 Telephone [facility] [address] [place] [phone] Tor Crews MD Hospital Follow-up 10/21/2024 Orders Only [facility] External Provider, [facility] 10/20/2024 Refill [facility] [address] [place] [address] Tor Crews MD 10/18/2024 Refill [facility] [address] [place] [phone] Tor Crews MD 10/16/2024 Orders Only GENERIC EXTERNAL DATA DEPARTMENT Provider, Generic External Data 10/15/2024 Orders Only [facility] [address] [place] [phone] Arcelia Watkins ANP 10/15/2024 Refill [facility] [address] [place] [address] Tor Crews MD Hypertriglyceridemia 10/14/2024 9:40 AM EST Office Visit [facility] [address] [place] [phone] Michelle Sosa MD Viral URI (Primary Dx); Mild intermittent asthma with acute exacerbation; Laceration of left ring finger without foreign body without damage to nail, initial encounter; Laceration of left index finger w/o foreign body w/o damage to nail, initial encounter 10/07/2024 9:20 AM EST Office Visit [facility] [address] [place] [phone] Adebayo Baker MD Arthritis of right knee (Primary Dx) 10/07/2024 Telephone [facility] [address] [place] [phone] Tor Crews MD Nurse Triage 09/21/2024 1:00 PM EST Office Visit [address] [phone] Tor Crews MD Type 2 diabetes mellitus with stage 3b chronic kidney disease, with long-term current use of insulin (CMS/HCC) (Primary Dx); Essential hypertension; Chronic systolic heart failure (CMS/HCC); Type 2 diabetes mellitus without complication, with long-term current use of insulin (CMS/HCC); CKD stage 3 secondary to diabetes (CMS/HCC); Primary osteoarthritis of right knee; Encounter for immunization 09/21/2024 Travel 09/20/2024 11:30 AM EST Office Visit [facility] [address] [place] [phone] Marlon Durham, [place] 09/06/[address] [phone] Tor Crews MD Error (VOID this visit) 09/06/2024 Telephone [facility] [address] [place] [address] [phone] Tor Crews MD Chart Prep from Last [...] Sign Reading Time Taken Comments Blood Pressure 148/84 11/29/2024 10:14 AM EST Pulse 83 11/18/2024 1:33 PM EST [...] Description 12/02/2024 1:30 PM EST Medication Management [facility] [address] [place] [phone] 12/07/2024 11:15 AM EST Office Visit [facility] [address] [place] [phone] Tor Crews MD [address] [place] [phone] 06/01/2025 10:00 AM EDT Office Visit [facility] [address] [place] [phone] Kristen Peerz Health Maintenance Due Date Last Done Comments CT Colonography 1971 FIT DNA/Cologuard 1971 FIT 1971 FOBT 1971 HIV Screening 1971 Sigmoidoscopy 1971 Diabetes: Foot Exam 1981 Alcohol/Substance Use Screening 1983 Hepatitis C Screening 1989 COVID-19 Vaccine ( season) 2024 11/20/2021, 01/10/2021, 12/20/2020 Lipid Panel 09/09/2024 09/09/2023, 08/27, 06/04/2023, Additional history exists Hepatitis B Vaccines (2 of 3 - 19+ 3-dose series) 10/19/2024 09/21/2024 Diabetes: Hemoglobin A1C 12/22/202409/21/2 024, 07/27/2024, 03/23/2024, Additional history exists Depression Screening 03/23/2025 03/23/2024, 03/04/20 SDOH Screening 03/23/2025 03/23/2024 Dental Oral Exam 05/30/2025 11/29/2024, 04/18/2021 Dental Prophylaxis 05/30/2025 11/29/2024 Tobacco Screening 11/29/2025 11/29/2024 Dental X-Ray: Bitewings 11/30/2025 11/29/19 25, 09/20/2024, 04/18/2021 Eye Exam 07/02/2026 07/02/2024, 0903/2024, 07/02/2024, Additional history exists Dental X-Ray: Full Mouth 11/30/2027 025, 07/10/2023, 04/18/2021 Colonoscopy 01/26/2032 01/25/2022 Colorectal Cancer Screening 01/26/2032 DTaP/Tdap/Td Vaccines (3 - Td or Tdap) 10/16/2034 10/16/2024, 10/26/2015 RSV Patients and Patients Aged 60 years or older (1 - 1-dose 75+ series) 2046 Pneumococcal Vaccine: 50+ Years Completed 04/17/2023, 02/03/2012 Zoster Vaccines Completed 04/17/2023, [...] Procedure Name Priority Date/Time Associated Diagnosis Comments COMPREHENSIVE PERIODONTAL EVALUATION - NEW OR ESTABLISHED PATIENT Routine 11/29/2024 10:00 AM EST Dental calculus Dental plaque Tartar deposits on teeth Subgingival dental calculus Periodontal disease Encounter for dental examination ORAL HYGIENE INSTRUCTIONS Routine 11/29/2024 10:00 AM EST Dental calculus Dental plaque Tartar deposits on teeth Subgingival dental calculus ADJUNCTIVE GENERAL SERVICES - PROFESSIONAL VISITS - CASE PRESENTATION, SUBSEQUENT TO DETAILED AND EXTENSIVE TREATMENT PLANNING Routine 11/29/2024 10:00 AM EST PROPHYLAXIS - ADULT Routine 11/29/2024 1 0:00 AM EST Dental calculus Dental plaque Tartar deposits on teeth Subgingival dental calculus DIAGNOSTIC - DIAGNOSTIC IMAGING - INTRAORAL - COMPREHENSIVE SERIES OF RADIOGRAPHIC IMAGES Routine 11/29/2024 10:00 AM EST PERIODIC ORAL EVALUATION - ESTABLISHED PATIENT Routine 11/29/2024 10:00 AM EST Dental calculus Dental plaque Tartar deposits on teeth Subgingival dental calculus Periodontal disease Encounter for dental examination VITAMIN D,25-OH,TOTAL,IA Routine 11/23/2024 10:37 AM EST CALCIUM Routine 11/23/2024 10:37 AM EST CREATININE, SERUM Routine 11/23/2024 10: 37 AM EST UREA NITROGEN (BUN) Routine 11/23/2024 1 0:37 AM EST ELECTROLYTE PANEL Routine 11/23/2024 10: 37 AM EST PTH, INTACT WITHOUT CALCIUM Routine 11/23/2024 10:37 AM EST CBC WITH AUTO DIFFERENTIAL Routine 11/23/2024 10:37 [...] complication, with long-term current use of insulin ([facility]/HCC) POCT GLUCOSE Routine 09/21/2024 12:57 PM EST Type 2 diabetes mellitus without complication, with long-term current use of insulin (CMS/HCC) ADJUNCTIVE GENERAL SERVICES - PROFESSIONAL VISITS - [...] DIRECT LDL Routine 09/09/2023 7:57 AM EST Hypertriglyceridemi a HM COLONOSCOPY Routine 01/25/2022 from Last 3 Months or Most Recently Relevant to Health Maintenance Results * Vitamin D, 25-Hydroxy, Total, Immunoassay (11/23/2024 10:37 AM EST) Vitamin D 25-OH Total 31.5 >30 ng/mL [facility] Comment:Health Based Referen ce Values*< 20 ng/mL Hxlpdhpod62-99 ng/mL Insufficient> 30 ng/mL Sufficient*Rosa TIAN. N Engl J Med. 2007;[id number]:[id number] must be taken in interpreting Vitamin D results fromdifferent laboratories and methodologies. Published datademonstrated that results from patients undergoinghemodialysis may show a negative bias when tested withvarious automated 25-OH vitamin D assays when compared toLC-MS/MS.When testing samples from patients whose predominant form ofVitamin D is Vitamin D2, such as patients receiving VitaminD2 supplementation, results that are subtherapeutic shouldbe confirmed with another method such as LC-MS/MS. 11/23/2024 10:3 7 AM EST 11/23/2024 10:37 AM EST us Generic External Data Provider LAB BLOOD ORDERAB LES Final Result [facility] [address] [place] [phone] * (ABNORMAL) Creatinine, Serum (11/23/2024 10:37 AM EST) Creatinine, Serum 1.56(H) 0.5 - 1.4 mg/dL [facility] Estimated Glomerular Filt Rate 47 [facility] Comment:Chronic Kidney Disea se: Estimated GFR < 60 mL/min/1.02j1Dmvaic Kidney Disease: Estimated GFR < 15 mL/min/1.73m2 11/23/2024 10:3 7 AM EST 11/23/2024 10:37 AM EST us Generic External Data Provider LAB BLOOD ORDERAB LES Final Result [facility] [address] [place], [place] [phone] * (ABNORMAL) CBC auto differential (11/23/2024 10:37 AM EST) Only the most recent of2 resultswithin the time period is included. White Blood Count 7.3 4.8 - 10.8 X10*3/uL [facility] Red Blood Count 5.08 4.60 - 5.80 X10*6/uL [facility] Hemoglobin 14.5 14.0 - 18.0 g/dl [facility] Hematocrit 42.0 42.0 - 52.0 % [facility] Mean Corpuscular Volume 82.7 80.0 - 98.0 fL [facility] Mean Corpuscular Hemoglobin 28.5 27.0 - 33.0 pg [facility] Mean Corpuscular HGB Conc 34.5 31.0 - 36.0 g/dl [facility] Red Cell Distribution Width 13.1 11.0 - 16.0 % [facility] Platelet Count 231 160 - 400 X10*3/uL [facility] Mean Platelet Volume 10.4 9.4 - 12.4 fL [facility] Neutrophils Percent Auto 70.9 45 - 73 % [facility] Imm Gran Pct Auto 0.8(H) 0.0 - 0.4 % [facility] Lymphocytes Percent Auto 20.7 20 - 40 % [facility] Monocytes Percent Auto 5.8 2 - 11 % [facility] Eosinophils Percent Auto 1.5 0 - 4 % [facility] Basophils Percent Auto 0.3 0 - 2 % [facility] NRBC Pct Auto 0.0 0.0 - 0.2 /100WBC [facility] Neutrophils Absolute Auto 5.2 2.0 - 8.3 x10*3/uL [facility] Imm Gran Abs Auto 0.06(H) 0.00 - 0.03 X10*3/uL [facility] Lymphocytes Absolute Auto 1.5 1.2 - 4.9 X10*3/uL [facility] Monocytes Absolute Auto 0.4 0.1 - 1.2 X10*3/uL [facility] Eosinophils Absolute Auto 0.1 0.0 - 0.4 X10*3/uL [facility] Basophils Absolute Auto 0.0 0.0 - 0.2 X10*3/uL [facility] NRBC Abs Auto 0.000 0.0 - 0.012 X10*3/uL [facility] 11/23/2024 10:3 7 AM EST 11/23/2024 10:37 AM EST us Generic External Data Provider LAB BLOOD ORDERAB LES Final Result Performing Organization Address [facility] Co de Phone Number [facility] [address] [place] [phone] * (ABNORMAL) BUN (Blood Urea Nitrogen) (11/23/2024 10:37 AM EST) Urea Nitrogen (BUN) 17(H) 9 - 16 mg/dL [facility] 11/23/2024 10:3 7 AM EST 11/23/2024 10:37 AM EST Generic External Data Provider LAB BLOOD ORDERAB LES Final Result Performing Organization Address [facility] Co de Phone Number [facility] [address] [place] [address] [phone] * PTH, Intact Without Calcium (11/23/2024 10:37 AM EST) Parathyroid Hormone, Intact 18.6 8.7 - 77.1 pg/mL [facility] 11/23/2024 10:3 7 AM EST 11/23/2024 10:37 AM EST us Generic External Data Provider LAB BLOOD ORDERAB LES Final Result Performing Organization Address [facility] de Phone Number [facility] [address] [place] [address] [phone] * (ABNORMAL) Calcium (11/23/2024 10:37 AM EST) Calcium 10.3(H) 8.4 - 10.2 mg/dL [facility] 11/23/2024 10:3 7 AM EST 11/23/2024 10:37 AM EST Generic External Data Provider LAB BLOOD ORDERAB LES Final Result Performing Organization Address [facility] de Phone Number [facility] [address] [place] [address] [phone] * (ABNORMAL) Electrolyte Panel (11/23/2024 10:37 AM EST) Sodium 140 135 - 145 mmol/L [facility] Potassium 4.3 3.3 - 5.1 mmol/L [facility] Chloride 110(H) 96 - 108 mmol/L [facility] Carbon Dioxide 24 22 - 29 mmol/L [facility] Anion Gap 10(L) 12 - 20 [facility] 11/23/2024 10:3 7 AM EST 11/23/2024 10:37 AM EST Generic External Data Provider LAB BLOOD ORDERAB LES Final Result Performing Organization Address [facility] de Phone Number [facility] [address] [place] [phone] * XR Chest 2 Views (10/23/2024 3:13 PM EST) Only the most recent of2 resultswithin the time period is included. Anatomical Region Laterality Modality Chest Radiographic Fabiana ging 10/23/2024 3:13 PM EST Narrative 10/23/2024 3:14 PM EST ? [facility] ?[address] ?[place] [address] ?XRay Report ? Signed ? Patient: Godinez Godinez,Ian ?MR#: [id number] ?? [id number] ? : 1970 ?Acct:[id number] ? Age/Sex: 54 / M ?ADM Date: 10/21/24 ? Loc: HO.S3 ?346-1 ? Attending Dr: Nic Avery DO ? Ordering Physician: Nic Avery DO ?? Date of Service: 10/23/24 ?? Procedure(s): XR chest 2V ?? Accession Number(s): [id number] ? cc: Tor Villela MD; Nic Avery [...] 10/23/24 1514 ? DD/ 1513 ? TD/TT: 10/23/241512 ? Workforce Analyst: ? Procedure Note Jessy, Bailey - 10/23/2024 [place] [address] XRay Report Signed Patient: Ian HernandezMR#: [id number] : 1970Acct:[id number] Age/Sex: 54 / MADM Date: 10/21/24 Loc: HO.S3 346-[address]: Nic Avery DO Ordering Physician: Nic Avery DO Date of Service: 10/23/24 Procedure(s): XR chest 2V Accession Number(s): [id number] cc: Tor Villela MD; Nic Avery DO [...] signed by Kaelyn Leon MD in OV> 10/23/241513 DD/ 12 TD/TT: 10/23/241512 Workforce Analyst: [facility] External Provider IMG XR PROCEDURES Edited Result - Final * (ABNORMAL) Glucose, Whole Blood (10/16/2024 1:10 PM EST) Glucose, Whole Blood 340(H) 60 - 115 mg/dL [facility] Comment:METER #: [id number] 10/16/2024 1:10 PM EST 10/16/2024 1:15 PM EST Generic External Data Provider LAB BLOOD ORDERAB LES Final Result Performing Organization Address [facility]/ZIP Co de Phone Number [facility] [address] [place] [phone] * High Sensitivity Troponin I (10/16/2024 12:21 PM EST) TROPONIN I HIGH SENSITIVITY 5.1 <3.5 - 35.0 ng/L [facility] Comment:The [place] high sens itivity Troponin-I results should beused in conjunction with other diagnostic information suchas ECG, clinical observations and information, and patientsymptoms to aid in the diagnosis of [place]. 10/16/2024 12:2 1 PM EST 10/16/2024 12:24 PM EST Generic External Data Provider LAB BLOOD ORDERAB LES Final Result Performing Organization Address [facility]/ZIP Co de Phone Number [facility] [address] [place] [address] [phone] * SARS-CoV-2 RNA, Influenza A/B, and RSV RNA, Ql NAAT (10/16/2024 12:21 PM EST) Influenza A PCR NEGATIVE Negative [facility] Influenza B PCR NEGATIVE Negative [facility] Resp Syncy Virus RNA Qual PCR NEGATIVE Negative [facility] SARS COV2 PCR NEGATIVE Negative [facility] Comment:All test results mus t be [...] use by authorized laboratories.Testing performed on the [employer] GeneXpert utilizingreal-time RT-PCR.All SARS CoV2 and positive influenza A/B results arereported to [facility]. 10/16/2024 12:2 1 PM EST 10/16/2024 12:24 PM EST us Generic External Data Provider LAB MICROBIOLOGY - GENERAL ORDERABLES Final Result [facility] [address] [place] [address] [phone] * Hepatic Function Panel (10/16/2024 12:21 PM EST) Bilirubin, Total 0.3 0.0 - 1.0 mg/dL [facility] Bilirubin, Direct 0.1 0.0 - 0.5 mg/dL [facility] Aspartate Amino Transferase 19 5 - 37 U/L [facility] Alanine Aminotransferase 23 0 - 40 U/L [facility] Total Protein 7.1 6.5 - 8.0 g/dL [facility] Albumin Level 4.0 3.5 - 5.0 g/dL [facility] Alkaline Phosphatase 73 39 - 117 U/L [facility] 10/16/2024 12:2 1 PM EST 10/16/2024 12:24 PM EST us Generic External Data Provider LAB BLOOD ORDERAB LES Final Result Performing Organization Address City/[facility]/ZIP Co de Phone Number [facility] [address] [place] [phone] * (ABNORMAL) Basic Metabolic Panel (10/16/2024 12:21 PM EST) Sodium 137 135 - 145 mmol/L [facility] Potassium 3.8 3.3 - 5.1 mmol/L [facility] Chloride 107 96 - 108 mmol/L [facility] Carbon Dioxide 20(L) 22 - 29 mmol/L [facility] Anion Gap 14 12 - 20 [facility] Urea Nitrogen (BUN) 30(H) 9 - 16 mg/dL [facility] Creatinine, Serum 1.65(H) 0.5 - 1.4 mg/dL [facility] Creatinine Clr Calc Pharmacy 55.6 [facility] Comment:eGFR (calculated fro m the MDRD study equation) and eCrCl(calculated from the Cockcroft-Gault equation) are based ondifferent parameters and may not yield comparable results.If eCrCl result is absurd, please check patient'sheight/weight. Estimated Glomerular Filt Rate 44 [facility] Comment:Chronic Kidney Disea se: Estimated GFR < 60 mL/min/1.51a4Yzadzd Kidney Disease: Estimated GFR < 15 mL/min/1.73m2 Glucose 339(H) 60 - 115 mg/dL [facility] Calcium 8.8 8.4 - 10.2 mg/dL [facility] 10/16/2024 12:2 1 PM EST 10/16/2024 12:24 PM EST us Generic External Data Provider LAB BLOOD ORDERAB LES Final Result Performing Organization Address City/[facility]/ZIP Co de Phone Number [facility] [address] [place] [address] [phone] * Laceration Repair (10/14/2024 10:20 AM EST) Narrative Michelle Sosa MD - 10/14/2024 10:20 AM EST Michelle Sosa MD ? 10/14/2024 11:08 AM Laceration Repair Date/Time: 10/14/2024 10:20 AM Performed by: Michelle Sosa MD Authorized by: Michelle Sosa MD ?? Consent: ??Consent obtained: ??Verbal ??Consent given by: ??Patient ??Risks, benefits, and alternatives were discussed: yes ?Risks discussed: ??Pain ??Alternatives discussed: ??No treatment [place] protocol: ??Procedure explained and questions answered to [...] NOW Rapid Molecular) (10/14/2024 9:52 AM EST) Influenza B Negative Negative, Indeterminate [facility] Swab 10/14/2024 9:52 AM EST Michelle Sosa MD POINT OF CARE TEST ENTER/E DIT ORDERABLES Final Result [facility] [address] [place] [address] [phone] * Influenza A (ID NOW Rapid Molecular) (10/14/2024 9:52 AM EST) [facility] Influenza A Negative Negative, Indeterminate [facility] Swab 10/14/2024 9:52 AM EST Michelle Sosa MD POINT OF CARE TEST ENTER/E DIT ORDERABLES Final Result Performing Organization Address City/[facility]/ZIP Co de Phone Number [facility] [address] [place] [address] [phone] * POCT Rapid COVID Ag (10/14/2024 9:52 AM EST) [facility] Rapid COVID Ag Negative [facility] Swab 10/14/2024 9:52 AM EST Michelle Sosa MD POINT OF CARE TEST ENTER/E DIT ORDERABLES Final Result Performing Organization Address [facility]/ZIP Co de Phone Number [facility] [address] [place] [address] [phone] * (ABNORMAL) POCT HGB A1C (09/21/2024 1:05 PM EST) [facility] Hemoglobin A1C 9.2(A) 4.0 - 6.0 % QC Media Lot # [id number] Lot# Expiration Date , Blood 09/21/2024 1:05 PM EST Tor Bañuelos MD POINT OF CARE TEST EN TER/EDIT ORDERABLES Final Result * POCT Glucose (09/21/2024 12:57 PM EST) [facility] Glucose Blood, POC 160 60 - 200 mg/dL QC Media Lot # [id number] Lot# Expiration Date ,025 Blood Capillary blood specimen / Unknown 09/21/2024 12:57 PM EST Tor Bañuelos MD POINT OF CARE TEST EN TER/EDIT ORDERABLES Final Result * (ABNORMAL) Lipid Panel with Reflex to Direct LDL (09/09/2023 7:57 AM EST) Triglycerides 448(H) <150 mg/dL [facility] Comment:Desirable Triglyceri de: less than 150 mg/dLBorderline High Triglyceride 150-199 mg/dLHigh Triglyceride: 200-499 mg/dLVery High Triglyceride: greater than or equal to 5OO mg/dL Cholesterol 204(H) <200 mg/dL [facility] Comment:Desirable Cholestero l: less than 200 mg/dLBorderline High Cholesterol: 200-239 mg/dLHigh Cholesterol: greater than 239 mg/dL LDL Cholesterol Calculated TNP <100 mg/dL [facility] Comment:Unable to calculate the LDL. The formula of Friedwald,Shepherd, and Pearl is only valid if the triglycerides areless than 400 mg/dl. HDL Cholesterol 34(L) >40 mg/dL [facility] Comment:Desirable HDL: great er than 40 mg/dL Note: This HDL assay may give artificially low results in patients with liver disease. Blood 09/09/2023 7:57 AM EST 09/09/2023 7:57 AM EST Tor Bañuelos MD LAB BLOOD ORDERABLES Final Result [facility] [address] [place] [phone] * Hm Colonoscopy (01/25/2022) Colonoscopy Normal Normal 01/25/2022 Radha Reed - 01/25/2022 2:56 PM EDT Recommended 10 year follow up ( see scanned notes) Historical Provider HEALTH MAINTENANCE Edited Result - Final from Last 3 Months or Most Recently Relevant to Health Maintenance Insurance Care Teams Grinder Set Up Operator Relationship Specialty Start Date End Date Tor Crews MD [address] [place] [address] [place] PCP - General Internal Medicine 07/21/14
--- OUTSIDE RECORDS SUMMARY | 2024-12-01 11:00 | XMS_ITS | Encounter Summary ---
Author Organization [employer] Address [address] [place] [address] Care Team Providers Care Family Program Specialist Name Role Phone Tor Crews MD Primary [...] Description 12/02/2024 1:30 PM EST Medication Management [facility] [address] [place] [address] 12/07/2024 11:15 AM EST Office Visit [facility] [address] [place] [phone] Tor Crews MD [address] [place] [address] 06/01/2025 10:00 AM EDT Office Visit [facility] ADULT DENTAL [address] [place] [address] Kristen Perez documented as of this encounter Procedures Procedure Name Priority Date/Time Associated Diagnosis Comments VITAMIN D,25-OH,TOTAL,IA Routine 11/23/2024 10:37 AM EST CREATININE, SERUM Routine 11/23/2024 10: 37 AM EST CBC WITH AUTO DIFFERENTIAL Routine 11/23/2024 10:37 AM EST UREA NITROGEN (BUN) Routine 11/23/2024 1 0:37 AM EST PTH, INTACT WITHOUT CALCIUM Routine 11/23/2024 10:37 AM EST CALCIUM Routine 11/23/2024 10:37 AM EST ELECTROLYTE PANEL Routine 11/23/2024 10: 37 AM EST documented in this encounter Results * Vitamin D, 25-Hydroxy, Total, Immunoassay (11/23/2024 10:37 AM EST) Vitamin D 25-OH Total 31.5 >30 ng/mL [facility] Comment:Health Based Referen ce Values*< 20 ng/mL [id number] ng/mL Insufficient> 30 ng/mL Sufficient*Rosa TIAN. N [...] ORDERAB LES Final Result Performing Organization Address City/[facility]/ZIP Co de Phone Number [facility] [address] [place] [address] [phone] * (ABNORMAL) Calcium (11/23/2024 10:37 AM EST) Pathologist [facility] Calcium 10.3(H) 8.4 - 10.2 mg/dL [facility] 11/23/2024 10:3 7 AM EST 11/23/2024 10:37 AM EST Generic External Data Provider LAB BLOOD ORDERAB LES Final Result Performing Organization Address [facility] Co de Phone Number [facility] [address] [place] [address] [phone] * (ABNORMAL) Creatinine, Serum (11/23/2024 10:37 AM EST) Creatinine, Serum 1.56(H) 0.5 - 1.4 mg/dL [facility] Estimated Glomerular Filt Rate 47 [facility] Comment:Chronic Kidney Disea se: Estimated GFR < 60 mL/min/1.96f4Gvmlxy Kidney Disease: Estimated GFR < 15 mL/min/1.73m2 11/23/2024 10:3 7 AM EST 11/23/2024 10:37 AM EST Generic External Data Provider LAB BLOOD ORDERAB LES Final Result Performing Organization Address [facility] Phone Number [facility] [address] [place] [address] [phone] * (ABNORMAL) BUN (Blood Urea Nitrogen) (11/23/2024 10:37 AM EST) Urea Nitrogen (BUN) 17(H) 9 - 16 mg/dL [facility] 11/23/2024 10:3 7 AM EST 11/23/2024 10:37 AM EST Generic External Data Provider LAB BLOOD ORDERAB LES Final Result Performing Organization Address [facility] Phone Number [facility] [address] [place] [address] [phone] * (ABNORMAL) Electrolyte Panel (11/23/2024 10:37 AM EST) Sodium 140 135 - 145 mmol/L [facility] Potassium 4.3 3.3 - 5.1 mmol/L [facility] Chloride 110(H) 96 - 108 mmol/L [facility] Carbon Dioxide 24 22 - 29 mmol/L [facility] Anion Gap 10(L) 12 - 20 [facility] 11/23/2024 10:3 7 AM EST 11/23/2024 10:37 AM EST Generic External Data Provider LAB BLOOD ORDERAB LES Final Result Performing Organization Address [facility] de Phone Number [facility] [address] [place] [address] [phone] * PTH, Intact Without Calcium (11/23/2024 10:37 AM EST) Parathyroid Hormone, Intact 18.6 8.7 - 77.1 pg/mL [facility] 11/23/2024 10:3 7 AM EST 11/23/2024 10:37 AM EST us Generic External Data Provider LAB BLOOD ORDERAB LES Final Result Performing Organization Address City/State/[facility] Co de Phone Number [facility] [address] [place] [address] [phone] * (ABNORMAL) CBC auto differential (11/23/2024 10:37 AM EST) Pathologist [facility] White Blood Count 7.3 4.8 - 10.8 X10*3/uL [facility] Red Blood Count 5.08 4.60 - 5.80 X10*6/uL [facility] Hemoglobin 14.5 14.0 - 18.0 g/dl [facility] Hematocrit 42.0 42.0 - 52.0 % [facility] Mean Corpuscular Volume 82.7 80.0 - 98.0 fL [facility] Mean Corpuscular Hemoglobin 28.5 27.0 - 33.0 pg [facility] Mean Corpuscular HGB Conc 34.5 31.0 - 36.0 g/dl [facility] Red Cell Distribution Width 13.1 11.0 - 16.0 % [facility] Platelet Count 231 160 - 400 X10*3/uL [facility] Mean Platelet Volume 10.4 9.4 - 12.4 fL [facility] Neutrophils Percent Auto 70.9 45 - 73 % [facility] Imm Gran Pct Auto 0.8(H) 0.0 - 0.4 % [facility] Lymphocytes Percent Auto 20.7 20 - 40 % [facility] Monocytes Percent Auto 5.8 2 - 11 % [facility] Eosinophils Percent Auto 1.5 0 - 4 % [facility] Basophils Percent Auto 0.3 0 - 2 % [facility] NRBC Pct Auto 0.0 0.0 - 0.2 /100WBC [facility] Neutrophils Absolute Auto 5.2 2.0 - 8.3 x10*3/uL [facility] Imm Gran Abs Auto 0.06(H) 0.00 - 0.03 X10*3/uL [facility] Lymphocytes Absolute Auto 1.5 1.2 - 4.9 X10*3/uL [facility] Monocytes Absolute Auto 0.4 0.1 - 1.2 X10*3/uL [facility] Eosinophils Absolute Auto 0.1 0.0 - 0.4 X10*3/uL [facility] Basophils Absolute Auto 0.0 0.0 - 0.2 X10*3/uL [facility] NRBC Abs Auto 0.000 0.0 - 0.012 X10*3/uL [facility] 11/23/2024 10:3 7 AM EST 11/23/2024 10:37 AM EST us Generic External Data Provider LAB BLOOD ORDERAB LES Final Result Performing Organization Address City/State/[facility] Co de Phone Number [facility] [address] [place] [phone] documented in this encounter Visit Diagnoses Not on filedocumented in this encounter Additional Health Concerns Assessment Noted Time PHQ-9 Depression Total Score: 4 03/04/20 23 2:58 PM EDT documented as of this encounter Care Teams Family Program Specialist Relationship Specialty Start Date End Date Tor Crews MD [address] [place] [phone] PCP - General Internal Medicine 07/21/14 documented as of this encounter
--- OUTSIDE RECORDS SUMMARY | 2024-12-01 11:00 | XMS_ITS | Encounter Summary ---
Author Organization [employer] Address [address] [facility] 7t [place] [address] Care Team Providers Care Artisan Plasterer Name Role Phone Tor Crews MD Primary Care Provide r Reason for Visit * Reason Onset Date Comments Chart Prep 11/11/2024 Encounter Details Date Type Department Care Team ([facility] st Contact Info) Description 11/11/[address] [facility] [address] [place], [place] [phone] Tor Crews MD [address] [place], [place] [phone] Chart Prep Social History Tobacco Use Types [...] EST Medication Management [facility] [address] [place] [phone] 12/07/2024 11:15 AM EST Office [address] [facility] [address] [place] [phone] Tor Crews MD [address] [place] [phone] 06/01/2025 10:00 AM EDT Office Visit [facility] [address] [place] [phone] Kristen Perez documented as of this encounter Visit Diagnoses Not on filedocumented in this encounter Additional Health Concerns Assessment Noted Time PHQ-9 Depression Total Score: 4 03/04/20 23 2:58 PM EDT documented as of this encounter Care Teams Artisan Plasterer Relationship Specialty Start Date End Date Tor Crews MD [address] [place] [address] PCP - General Internal Medicine 07/21/14 documented as of this encounter
--- OUTSIDE RECORDS SUMMARY | 2024-12-01 11:00 | XMS_ITS | Encounter Summary ---
Author Organization [employer] Address [address] [place] [address] Care Team Providers Care Adviser Sales Name Role Phone Tor Crews MD Primary Care Provide r Reason for Visit * Reason Onset Date Comments Hospital Follow-up 10/26/2024 Encounter Details Date Type Department Care Team ([facility] st Contact Info) Description 10/26/2024 Telephone [facility] [address] [place], [place] [phone] Tor Crews MD [address] [place], [place] [phone] Hospital Follow-up Social History Tobacco Use Types [...] from pt requesting a HDF appt. Hospital: [facility] Date of admission: 10/20/2024 Discharge date: 10/25/2024 Diagnosed: Asthma *Send message to [place] Clinical Care Coordinators documented in this encounter Plan of Treatment Upcoming Encounters Date Type Department Care Team (Late st Contact Info) Description 12/02/2024 1:30 PM EST Medication Management [facility] [address] [place] [phone] 12/07/2024 11:15 AM EST Office Visit [facility] [address] [place] [phone] Tor Crews MD [address] [place] [phone] 06/01/2025 10:00 AM EDT Office Visit [facility] ADULT DENTAL [address] [place] [phone] Kristen Perez documented as of this encounter Visit Diagnoses Not on filedocumented in this encounter Additional Health Concerns Assessment Noted Time PHQ-9 Depression Total Score: 4 03/04/20 23 2:58 PM EDT documented as of this encounter Care Teams Adviser Sales Relationship Specialty Start Date End Date Tor Crews MD [address] [place] [phone] PCP - General Internal Medicine 07/21/14 documented as of this encounter
--- OUTSIDE RECORDS SUMMARY | 2024-12-01 11:00 | XMS_ITS | Encounter Summary ---
Author Organization [employer] Address [address] [place] [address] Care Team Providers Care Finger Cobbler Name Role Phone Tor Crews MD Primary Care Provide r Reason for Visit * Reason Comments Med Refill Encounter Details Date Type Department Care Team ([facility] st Contact Info) Description 11/20/2024 Refill [facility] [address] [place], [place] [phone] Tor Crews MD [address] [place], [place] [phone] Mixed hyperlipidemia; Type 2 diabetes mellitus without complication, with long-term current use of insulin ([facility]) Social History Tobacco Use Types [...] Description 12/02/2024 1:30 PM EST Medication Management [facility] [address] [place] [phone] 12/07/2024 11:15 AM EST Office Visit [facility] [address] [place] [phone] Tor Crews MD [address] [place] [phone] 06/01/2025 10:00 AM EDT Office Visit [facility] [address] [place] [phone] Kristen Perez documented as of this encounter Visit Diagnoses Diagnosis Mixed hyperlipidemia Type 2 diabetes mellitus without complication, with long-term current use of insulin ([facility]) documented in this encounter Additional Health Concerns Assessment Noted Time PHQ-9 Depression Total Score: 4 03/04/20 23 2:58 PM EDT documented as of this encounter Care Teams Finger Cobbler Relationship Specialty Start Date End Date Tor Crews MD [address] [place] [phone] PCP - General Internal Medicine 07/21/14 documented as of this encounter
--- OUTSIDE RECORDS SUMMARY | 2024-12-01 11:01 | XMS_ITS | Encounter Summary ---
Author Organization [employer] Address [address] [facility] 7t [place] [address] Care Team Providers Care Senior Hardware Engineer Name Role Phone Tor Crews MD Primary Care Provide r Encounter Details Date Type Department Care Team ([facility] Contact Info) Description 02/27/2023 Abstract [facility] MED[facility]INE [address] [place] [phone] Tor Crews MD [address] [place] [address] Social History Tobacco Use Types Packs/Day Years [...] Encounters Date Type Department Care Team (Late Contact Info) Description 12/02/2024 1:30 PM EST Medication Management [facility] [address] [place] [address] 12/07/2024 11:15 AM EST Office Visit [facility] [address] [place] [address] [phone] Tor Crews MD [address] [facility] [place] [address] 06/01/2025 10:00 AM EDT Office Visit [facility] ADULT DENTAL [address] [place] [address] Kristen Perez documented as of this encounter Procedures Procedure Name Priority Date/Time Associated Diagnosis Comments HM COLONOSCOPY Routine 01/25/2022 documented in this encounter Results * Hm Colonoscopy (01/25/2022) Colonoscopy Normal Normal 01/25/2022 Narrative Radha Alves - 01/25/2022 2:56 PM EDT Recommended 10 year follow up ( see scanned notes) Historical Provider [facility] Edited Result - Final documented in this encounter Visit Diagnoses Not on filedocumented in this encounter Care Teams Senior Hardware Engineer Relationship Specialty Start Date End Date Tor Crews MD [address] [place] [address] PCP - General Internal Medicine 07/21/14 documented as of this encounter
--- OUTSIDE RECORDS SUMMARY | 2024-12-01 11:01 | XMS_ITS | Encounter Summary ---
Author Organization [employer] Address [address] [facility] 7t [place] [address] Care Team Providers Care Ecclesiastical Worker Name Role Phone Tor Crews MD Primary Care Provide r Encounter Details Date Type Department Care Team (Late st Contact Info) Description 12/17/2022 Orders Only [facility] [address] [place], [place] [address] [address] Ally Rodríguez LPN Social History Tobacco Use [...] Description 12/02/2024 1:30 PM EST Medication Management [facility] [address] [place] [address] 12/07/2024 11:15 AM EST Office Visit [facility] [address] [place] [address] [place] [address] 06/01/2025 10:00 AM EDT Office Visit [facility] ADULT DENTAL [address] [place] [address] Kristen Perez documented as of this encounter Visit Diagnoses Not on filedocumented in this encounter Care Teams Ecclesiastical Worker Relationship Specialty Start Date End Date Tor Crews MD [address] [place] [address] PCP - General Internal Medicine 07/21/14 documented as of this encounter
--- OUTSIDE RECORDS SUMMARY | 2024-12-01 11:01 | XMS_ITS | Encounter Summary ---
Author Organization [facility] Address [address] [facility] [address] [place] [address] Phone Care Team Providers Care Project Developer Name Role Phone Tor Guzman MD Primary Care Provider Derek ailable Encounter Details Date Type Department Care Team (Late st Contact Info) Description 11/10/2023 Office Communication [facility] [address] [place] [address] [place] [address] Ko Gorman MD [phone] [facility] [address] [place] [address] Social History Tobacco Use Types [...] He stated he is not coming to [facility] * Telephone Encounter - Ko Gorman MD - 11/10/2023 8:42 PM EST Cathy appt with me in 4-6 wks documented in this encounter Plan of Treatment Not on file documented as of this encounter Visit Diagnoses Not on filedocumented in this encounter Care Teams Project Developer Relationship Specialty Start Date End Date Tor Guzman MD PCP - General 11/06/20 documented as of this encounter
--- OUTSIDE RECORDS SUMMARY | 2024-12-01 11:01 | XMS_ITS | Clinical Summary ---
Author Organization [facility] Address [address] [facility] [address] [place] [address] [place] [address] Phone Care Team Providers Care Neck Cutter Name Role Phone Tor Guzman MD Primary Care Provider Unav ailable [...] to 64 Years) Completed 04/17/[address] [place] [id number] [facility] ([id number]) [facility] ([id number]) Care Teams Neck Cutter Relationship Specialty Start Date End Date Tor Guzman MD PCP - General 11/06/20
--- OUTSIDE RECORDS SUMMARY | 2024-12-01 11:01 | XMS_ITS | Encounter Summary ---
Author Organization [employer] Address [address] [facility] [address] 7t [place] [address] Care Team Providers Care Gripper Attacher Name Role Phone Tor Crews MD Primary Care Provide r Reason for Visit * Reason Comments Routine Cleaning Dental Exam Encounter Details Date Type Department Care Team (Late st Contact Info) Description 11/29/2024 10:00 AM EST Office Visit [facility] ADULT DENTAL [address] [place] [address] Kristen Perez Dental calculus (Primary Dx); Dental plaque; Tartar deposits on teeth; Subgingival dental calculus; Periodontal disease; Encounter for dental examination Social History Tobacco Use Types Packs/Day Years [...] t he electric, gas, oil or water Aubrey threatened to shut off services in your [...] Pressure 148/84 11/29/2024 10:14 AM EST Pulse - - Temperature - - Respiratory Rate - - Oxygen Saturation - - Inhaled Oxygen Concentration - - Weight - - Height - - Body Mass Index - - documented in this encounter Progress Notes * Kristen Perez - 11/29/2024 10:00 AM EST Patient ID: Ian Godinez is a 54 y.o. male. Time Out: Timeout Date: 11/29/24, Timeout Time: 1016 (Dental Prophy Adult) Location: [facility] Tooth: Maxilla and Mandible Procedure: Exam, X-rays, and Prophylaxis Verified the above with patient, certified dental assistant, and provider. Confirmed via patient's chart, intraorally and by radiographs. Crimping Machine Operator: not applicable Medical Hx: Vitals: Blood pressure (!) 148/84. Medications, Med Hx reviewed with patient and updated in chart. Treatment Provided Dental procedures in this visit D0120 - PERIODIC ORAL EVALUATION - ESTABLISHED PATIENT (Completed) Service provider: Socorro Marinelli DDS Billing provider: Socorro Marinelli DDS D0210 - DIAGNOSTIC - DIAGNOSTIC IMAGING - INTRAORAL - COMPREHENSIVE SERIES OF RADIOGRAPHIC IMAGES (Completed) Service provider: Kristen Perez Billkalpesh provider: Socorro Marinelli DDS D1110 - PROPHYLAXIS - ADULT (Completed) Service provider: Kristen Perez Billkalpesh provider: Socorro Marinelli DDS D0180 - COMPREHENSIVE PERIODONTAL EVALUATION - NEW OR ESTABLISHED PATIENT (Completed) Service provider: Socorro Marinelli DDS Billing provider: Socorro Marinelli DDS D1330 - ORAL HYGIENE INSTRUCTIONS (Completed) Service provider: Kristen Perez Billing provider: Socorro Marinelli DDS D9450 - ADJUNCTIVE GENERAL SERVICES - PROFESSIONAL VISITS - CASE PRESENTATION, SUBSEQUENT TO DETAILED AND EXTENSIVE TREATMENT PLANNING (Completed) Service provider: Kristen Perez Billing provider: Socorro Marinelli DDS Instruments Used: Hand Scalers, Prophy angle, and Floss. Patient has pacemaker, hand instrumentation only. Fluoride: N/A Oral Cancer Screening: No lesions Head/Neck Exam: No Lesions Calculus: Heavy, Generalized, and Subgingival Plaque: Moderate and Generalized Stain: Light and Generalized Bleeding: Heavy and Generalized Gingiva: Perio Charting Completed, Recession- generalized, Erythematous, and Inflamed OH: Poor Perio Chart: Completed Patient presents with periodontal disease. Calculus present Subgingivally and Generalized that can be seen radiographically. BOP: Generalized and Heavy Exudate: Not Present Mobility: Grade I and On teeth # 24 Generalized Probing Depths Range: 4 to 8 mm Recession: Generalized ranging from 1 to 3 mm. Gingiva: Inflamed and Erythematous Bone loss visible radiographically: Generalized Pre Authorization requested for SRP. SRP treatment needed to promote gingival health, arrest disease progression of periodontal disease and prevent tooth loss. Provider: Kristen Perez Oral hygiene instructions provided to patient including brushing technique and flossing. Recommendations: [place] two times daily, modified kendrick technique, Floss daily, Electric toothbrush, Soft bristle toothbrush, [place] Tongue, Anti-sensitivity toothpaste Recall Frequency: 6 mo NV: 6mrc Hygienist: Kristen Perez RDH Cosigned by Socorro Marinelli DDS at 11/29/2024 1:53 PM EST Associated attestation - Socorro Marinelli DDS - 11/29/2024 1:53 PM EST I have reviewed the documentation and dental procedures made by the rendering provider, Kristen Perez RDH , and approve their chart entries for this visit. Socorro Marinelli DDS * Socorro Marinelli DDS - 11/29/2024 10:00 AM EST Dental procedures in this visit D0120 - PERIODIC ORAL EVALUATION - ESTABLISHED PATIENT (Completed) Service provider: Socorro Marinelli DDS Billing provider: Socorro Marinelli DDS D0210 - DIAGNOSTIC - DIAGNOSTIC IMAGING - INTRAORAL - COMPREHENSIVE SERIES OF RADIOGRAPHIC IMAGES (Completed) Service provider: Kristen Perez Billing provider: Socorro Marinelli DDS D1110 - PROPHYLAXIS - ADULT (Completed) Service provider: Kristen Perez Billing provider: Socorro Marinelli DDS D0180 - COMPREHENSIVE PERIODONTAL EVALUATION - NEW OR ESTABLISHED PATIENT (Completed) Service provider: Socorro Marinelli DDS Billing provider: Socorro Marinelli DDS D1330 - ORAL HYGIENE INSTRUCTIONS (Completed) Service provider: Kristen Perez Billing provider: Socorro Marinelli DDS D9450 - ADJUNCTIVE GENERAL SERVICES - PROFESSIONAL VISITS - CASE PRESENTATION, SUBSEQUENT TO DETAILED AND EXTENSIVE TREATMENT PLANNING (Completed) Service provider: Kristen Perez Billkalpesh provider: Socorro Marinelli DDS Patient ID: Ian Godinez is a 54 y.o. male. Time Out: Timeout Date: 11/29/24, Timeout Time: 1016 (Dental Prophy Adult) Location: [facility] Tooth: Maxilla and Mandible Procedure: Exam, X-rays, and Prophylaxis Verified the above with patient, certified dental assistant, and provider. Confirmed via patient's chart, intraorally and by radiographs. Crimping Machine Operator: not applicable Chief Complaint Patient presents with Routine Cleaning Dental Exam Medical Hx: Vitals: Blood pressure (!) 148/84. Past Medical History: Diagnosis Date Chronic systolic heart failure (CMS/HCC) Hypertension Ingrowing nail, right great toe 10/06/2017 Mixed hyperlipidemia Type 2 diabetes mellitus with stage 3a chronic kidney disease, with long-term current use of insulin ([facility]) Medications: Outpatient Encounter Medications as of 11/29/2024 Medication Sig Dispense Refill albuterol (2.5 MG/3ML) 0.083% nebulizer solution Take 3 mL (2.5 mg) by nebulization every 8 (eight)hours if needed for wheezing. 75 mL 2 albuterol (ProAir HFA) 108 (90 Base) MCG/ACT inhaler Inhale 2 puffs every 4 (four) hours if needed. Alcohol Swabs (Alcohol Prep) 70 % pads USE TWICE DAILY 100 each 11 aspirin (Aspirin Low Dose) 81 MG EC tablet TAKE 1 TABLET BY MOUTH EVERY EVENING 90 tablet 3 atorvastatin (Lipitor) 40 MG tablet TAKE 1 TABLET BY MOUTH AT BEDTIME 90 tablet 3 Blood Glucose Monitoring Suppl (VidtelStyle [place] Lite) w/Device kit Use to test blood sugar 3 times daily 1 kit 0 cholecalciferol (Vitamin D-3) 25 MCG tablet Take 1 tablet (25 mcg) by mouth in the morning. 90 tablet 3 Corlanor 7.5 MG tablet TAKE 1 TABLET BY MOUTH TWICE DAILY IN THE MORNING AND IN THE EVENING digoxin (Lanoxin) 250 MCG tab;et Take 250 mcg by mouth in the morning. empagliflozin (Jardiance) 25 MG take 1 tablet by oral route every day in the morning 90 tablet 1 Entresto 24-26 MG tablet Take 1 tablet by mouth 2 times daily. EPINEPHrine (Epipen) 0.3 MG/0.3ML injection syringe Inject into the shoulder, thigh, or buttocks. fenofibrate (Tricor) 54 MG tablet TAKE 1 TABLET BY MOUTH EVERY MORNING 90 tablet 1 fluticasone (Flonase) 50 MCG/ACT nasal spray INSTILL 2 SPRAYS IN EACH NOSTRIL ONCE DAILY. SHAKE GENTLY. PRIME BEFORE FIRST USE. CLEAN DIRECTED 16 g 3 FREESTYLE LITE test strip Use to test blood sugar 3 times daily 100 each 12 furosemide (Lasix) 40 MG tablet Take 40 mg by mouth in the morning. glyBURIDE (Diabeta) 5 MG tablet Take 1 tablet (5 mg) by mouth 2 times daily. 60 tablet 1 hydrOXYzine pamoate (Vistaril) 50 MG capsule Take 1 capsule by mouth if needed at bedtime. Lancets misc Use to test blood sugar 3 times daily 100 each 0 Lantus 100 UNIT/ML injection INJECT 46 UNITS SUBCUTANEOUSLY AT BEDTIME 15 mL 3 metFORMIN (Glucophage) 500 MG tablet Take 500 mg by mouth 2 times daily. metoprolol succinate XL (Toprol-XL) 25 MG 24 hr tablet Take 25 mg by mouth Once per day. 1/2 tab daily mirtazapine (Remeron) 45 MG tablet Take 45 mg by mouth at bedtime. NovoLOG FLEXPEN 100 UNIT/ML pen INJECT PER SLIDING SCALE FOR BLOOD SUGAR < 150 = DO NOT USE, 151-200 = 3 UNITS, 201-250 = 5U, 251-300 = 8U, 301-350 = 10U, 351- 400 = 12U, > 400 = 15U AND CALL DOCTOR 15 mL 3 omega-3 (Fish Oil) 1000 MG capsule TAKE 1 CAPSULE BY MOUTH THREE TIMES DAILY 90 capsule 5 omeprazole (PriLOSEC) [address] capsule TAKE 1 CAPSULE BY MOUTH EVERY DAY BEFORE MEALS 90 capsule 2 Pentips 32G X 4 MM misc USE DIRECTED WITH NOVOLOG FLEXPEN 100 each 3 predniSONE (Deltasone) 20 MG tablet 2 tabs po daily for 5 days 10 tablet 0 semaglutide (Ozempic) 2 MG/1.5ML solution pen-injector Inject 1 mg under the skin 1 (one) time per week. 2 each 12 sertraline (Zoloft) 100 MG tablet TAKE 2 TABLETS BY MOUTH EVERY DAY AT BEDTIME Diagnosis Unavailable SM All Day Allergy Relief 10 MG tablet TAKE 1 TABLET BY MOUTH EVERY DAY 90 tablet 0 spironolactone (Aldactone) 25 MG tablet TAKE 1/2 TABLET BY MOUTH EVERY MORNING 45 tablet 0 triamcinolone (Kenalog) 0.1 % cream Apply topically if needed in the morning and at bedtime (affected area). 30 g 2 UltiCare Insulin Syringe 30G X 1/2 0.5 ML misc USE DIRECTED ONCE DAILY 90 each 3 Vaporizer misc Dx asthma, viral uri 1 each 0 amoxicillin (Amoxil) 500 MG capsule Take 4 capsules of amoxicillin 500 mg 1 hour prior dental procedure 12 capsule 0 oxyCODONE (Roxicodone) 5 MG immediate release tablet Take 1 tablet by mouth every 8 (eight) hours. (Patient not taking: Reported on 11/29/2024) [DISCONTINUED] NovoLOG FLEXPEN 100 UNIT/ML pen INJECT SUBCUTANEOUSLY PER SLIDING SCALE: BLOOD SUGAR< 150 = DO NOT USE, 151-200 = 3 UNITS, 201-250 = 5U, 251-300 = 8U, 301-350 = 10U, 351-400 = 12U,> 400 = 15U AND CALL DOCTOR 15 mL 3 [DISCONTINUED] omega-3 (Fish Oil) 1000 MG capsule TAKE 1 CAPSULE BY MOUTH THREE TIMES DAILY 90 capsule 5 No facility-administered encounter medications on file as of 11/29/2024. Objective HPI Soft Tissue Exam No findings documented this visit Head and Neck Exam: Lymph Nodes, Lips, Palate, Buccal Mucosa, Floor of Mouth, Tongue, Tonsils, Alveolar Ridges, Oropharynx, Salivary Ducts, and Vestibules - no significant findings observed OCS: negative Dental Exam Radiographic Interpretation: Associated radiographs for today's visit were reviewed and finding(s) were discussed with the patient. Findings include: missing teeth, heavy tenacious calculus, bone loss generalized, poor OH Hard Tissue Exam: No decay Perio Dx: Generalized Chronic Periodontitis Stage: III Grade: B Reference tooth chart for additional findings. Oral Cancer Risk: Low Risk Oral Hygiene Instructions: [place] two times daily, modified kendrick technique, Floss daily, Soft bristle toothbrush, [place] Tongue Caries Risk Assessment: Low- no risk factor Assessment/Plan SRPs Add tooth upper RPD Patient tolerated procedure well, all questions answered and expressed understanding. Dismissed in good condition. NV: Earline Dry Cleaner: Kristen Perez Dentist: Socorro Marinelli DDS documented in this encounter Plan of Treatment Upcoming Encounters Date Type Department Care Team (Late st Contact Info) Description 12/02/2024 1:30 PM EST Medication Management [facility] MEDICINE [address] [place] [phone] 12/07/2024 11:15 AM EST Office Visit [facility] MEDICINE [address] [place] [address] Tor Crews MD [address] [place] [address] 06/01/2025 10:00 AM EDT Office Visit [facility] ADULT DENTAL [address] [place] [address] Kristen Perez Scheduled Orders Name Type Priority Associated Diagnoses Orde r Schedule 3 3 ADD TOOTH TO EXISTING PARTIAL DENTURE Dental Routine 1 Occur rences starting 11/29/2024 UL UL PERIODONTAL SCALING AND ROOT PLANING - 1 TO 3 TEETH PER QUADRANT Dental Routine [address] arting 11/29/2024 LL LL PERIODONTAL SCALING AND ROOT PLANING - 1 TO 3 TEETH PER QUADRANT Dental Routine [address] arting 11/29/2024 UR UR PERIODONTAL SCALING AND ROOT PLANING - 1 TO 3 TEETH PER QUADRANT Dental Routine [address] arting 11/29/2024 LR LR PERIODONTAL SCALING AND ROOT PLANING - 1 TO 3 TEETH PER QUADRANT Dental Routine [address] arting 11/29/2024 documented as of this encounter Procedures Procedure Name Priority Date/Time Associated Diagnosis Comments PROPHYLAXIS - ADULT Routine 11/29/2024 1 0:00 AM EST Dental calculus Dental plaque Tartar deposits on teeth Subgingival dental calculus PERIODIC ORAL EVALUATION - ESTABLISHED PATIENT Routine 11/29/2024 10:00 AM EST Dental calculus Dental plaque Tartar deposits on teeth Subgingival dental calculus Periodontal disease Encounter for dental examination ORAL HYGIENE INSTRUCTIONS Routine 2024 10:00 AM EST Dental calculus Dental plaque Tartar deposits on teeth Subgingival dental calculus DIAGNOSTIC - DIAGNOSTIC IMAGING - INTRAORAL - COMPREHENSIVE SERIES OF RADIOGRAPHIC IMAGES Routine 11/29/2024 10:00 AM EST COMPREHENSIVE PERIODONTAL EVALUATION - NEW OR ESTABLISHED PATIENT Routine 11/29/2024 10:00 AM EST Dental calculus Dental plaque Tartar deposits on teeth Subgingival dental calculus Periodontal disease Encounter for dental examination ADJUNCTIVE GENERAL SERVICES - PROFESSIONAL VISITS - CASE PRESENTATION, SUBSEQUENT TO DETAILED AND EXTENSIVE TREATMENT PLANNING Routine 11/29/2024 10:00 AM EST documented in this encounter Visit Diagnoses Diagnosis Dental calculus- Primary Accretions on teeth Dental plaque Accretions on teeth Tartar deposits on teeth Accretions on teeth Subgingival dental calculus Accretions on teeth Periodontal disease Unspecified gingival and periodontal disease Encounter for dental examination documented in this encounter Additional Health Concerns Assessment Noted Time PHQ-9 Depression Total Score: 4 03/04/20 23 2:58 PM EDT documented as of this encounter Care Teams Gripper Attacher Relationship Specialty Start Date End Date Tor Crews MD [address] [place] [phone] PCP - General Internal Medicine 07/21/14 documented as of this encounter
--- OUTSIDE RECORDS SUMMARY | 2024-12-01 11:01 | XMS_ITS | Encounter Summary ---
Author Organization [employer] Address [address] [facility] 7t [place] [address] Care Team Providers Care Production Designer Name Role Phone Tor Crews MD Primary Care Provide r Encounter Details Date Type Department Care Team (Late Contact Info) Description 11/28/2022 Abstract [facility] MEDICINE [address] [place] [phone] Tor Crews MD [address] [place] [phone] Social History Tobacco Use Types Packs/Day Years [...] Description 12/02/2024 1:30 PM EST Medication Management [address] [address] 12/07/2024 11:15 AM EST Office Visit [facility] MEDICINE [address] [place] [address] Tor Crews MD [address] [place] [address] 06/01/2025 10:00 AM EDT Office Visit [facility] ADULT DENTAL [address] [place] [address] Kristen Perez documented as of this encounter Visit Diagnoses Not on filedocumented in this encounter Care Teams Production Designer Relationship Specialty Start Date End Date Tor Crews MD [address] [place] [address] PCP - General Internal Medicine 07/21/14 documented as of this encounter
--- OUTSIDE RECORDS SUMMARY | 2024-12-01 11:01 | XMS_ITS | Encounter Summary ---
Author Organization [employer] Address [address] [facility] [address] 7t [place] [address] Care Team Providers Care Die Maker Stamping Name Role Phone Tor Crews MD Primary Care Provide r Reason for Visit * Reason Onset Date Comments triage 01/13/2023 Encounter Details Date Type Department Care Team ([facility] st Contact Info) Description 01/13/2023 Telephone [facility] MEDICINE [address] [place], [place] [phone] Tor Crews MD [address] [place], [place] [phone] triage Social History Tobacco Use Types Packs/Day [...] 01/13/2023 1:24 PM EDT Triage call with [place] Senior Program Manager ID [id number] Pt reports upper abdominal pain since last [...] light yellow/clear. Advised Pt to come to [facility] today and Pt agreed. Home care reviewed. [...] 1:30 PM EST Medication Management [facility] MEDICINE [address] [place] [phone] 12/07/2024 11:15 AM EST Office Visit [facility] MEDICINE [address] [place] [phone] Tor Crews MD [address] [place] [address] 06/01/2025 10:00 AM EDT Office Visit [facility] ADULT DENTAL [address] [place] [phone] Kristen Perez documented as of this encounter Visit Diagnoses Not on filedocumented in this encounter Care Teams Die Maker Stamping Relationship Specialty Start Date End Date Tor Crews MD [address] [place] [phone] PCP - General Internal Medicine 07/21/14 documented as of this encounter
--- OUTSIDE RECORDS SUMMARY | 2024-12-01 11:01 | XMS_ITS | Clinical Summary ---
Author Organization [facility] Address [address] [place] [address] Phone Care Team Providers Care Bindery Technician Name Role Phone Tor Villela MD Primary Care Provi pepe Social History Tobacco Use Types Packs/Day Years Used Date Smoking Tobacco: Never Assessed Sex and Gender Information Value Date Recorded Sex Assigned at Not on file Gender Identity Not on file Sexual Orientation Not on file Plan of Treatment Upcoming Encounters Date Type Department Care Team ([facility] Contact Info) Description 02/01/2025 9:45 AM EDT Consult Orthopedic Surgery - [place] [id number] [phone] Tod Little, DPM [address] [address] Health Maintenance Due Date Last Done Comments DTaP,Tdap,and Td Vaccines (1 - Tdap) 1990 Hepatitis B Vaccines (1 of 3 - 19+ 3-dose series) 1990 Zoster Vaccines (1 of 2) 2021 COVID-19 Vaccine (1 - 2023-2 5 season) 2024 Influenza Vaccine (#1) 2024 Cholesterol Screening (Lipid Panel) 11/26/2024 Colorectal Cancer Screening: Colonoscopy 11/26/2024 Depression Screening 11/26/2024 HIV Screening 11/26/2024 Hepatitis C Screening 11/26/2024 Medicare Annual Wellness Visit 11/26/2024 Social Influencers of Health Screening 11/26/2024 HIB Vaccines Aged Out No longer eligi [...] on patient's age to complete this topic MMR Vaccines Aged Out No longer eligi ble based on patient's age to complete this topic Meningococcal ACWY Vaccine Aged Out N o longer eligible based on patient's age to complete this topic Pneumococcal Vaccine: Pediat rics (0 to 5 Years) and At-Risk Patients (6 to 64 Years) Aged Out No longer eligible b ased on patient's age to complete this topic RSV Immunization Patients Un pepe 20 months Aged Out No longer eligible b ased on patient's age to complete this topic Varicella Vaccines Aged Out No longer eligible based on patient's age to complete this topic Care Teams Bindery Technician Relationship Specialty Start Date End Date Tor Villela MD [address] [place] [address] [place] [address] PCP - General 07/29/24
--- OUTSIDE RECORDS SUMMARY | 2024-12-01 11:01 | XMS_ITS | Encounter Summary ---
Author Organization [employer] Address 75 [facility] 7t [place] [address] Care Team Providers Care Shearing Shed Worker Name Role Phone Tor Crews MD Primary Care Provide r Reason for Visit * Reason Onset Date Comments Chart Prep 11/29/2024 Encounter Details Date Type Department Care Team ([facility] st Contact Info) Description 11/29/2024 Telephone [facility] [address] [place], [place] [phone] Tor Crews MD [address] [place], [place] [phone] Chart Prep Social History Tobacco Use Types [...] Telephone Encounter - Beverley Hollis MA - 11/29/2024 4:02 PM EST Chart Prep Labs: not done Images: not applicable Vaccines due: Covid Due and Hep B Due Referrals: Podiatry faxed a request in case pt kept an appt Screenings: HIV screening Overdue care gaps: A1C, Glucose, Sbirt, and Oral Health Chart prep for upcoming appt with Dr.Esparza campbell. LB documented in this encounter Plan of Treatment Upcoming Encounters Date Type Department Care Team (Late st Contact Info) Description 12/02/2024 1:30 PM EST Medication Management [facility] [address] [place] [address] 12/07/2024 11:15 AM EST Office Visit [facility] [address] [place] [address] Tor Crews MD [address] [place] [address] 06/01/2025 10:00 AM EDT Office Visit [facility] ADULT DENTAL [address] [place] [address] Kristen Perez documented as of this encounter Visit Diagnoses Not on filedocumented in this encounter Additional Health Concerns Assessment Noted Time PHQ-9 Depression Total Score: 4 03/04/20 23 2:58 PM EDT documented as of this encounter Care Teams Shearing Shed Worker Relationship Specialty Start Date End Date Tor Crews MD [address] [place] [address] PCP - General Internal Medicine 07/21/14 documented as of this encounter
== END 2024-12-01 10:57 | disposition home or self-care (01) ==
PROVIDERS: PCP Internal Medicine; Visit Provider Internal Medicine Nephrology
DX: N18.32 Chronic kidney disease, stage 3b (principal); I10 Essential (primary) hypertension
CPT/HCPCS: 99214

== ENCOUNTER → 2024-12-01 10:06 | Outpatient (BNVA) | payer OTHER, SELFPAY | PROVIDERS: PCP Internal Medicine; Visit Provider Internal Medicine Nephrology | DX: I12.9 Hypertensive chronic kidney disease with stage 1 through stage 4 chronic kidney disease, or unspecified chronic kidney disease (principal); N18.32 Chronic kidney disease, stage 3b | CPT/HCPCS: 99212 ==

== ENCOUNTER 2024-12-28 07:53 | Outpatient (AMB) | payer OTHER, SELFPAY ==
--- OUTSIDE RECORDS SUMMARY | 2024-12-28 07:55 | XMS_ITS | Encounter Summary ---
Author Organization [employer] Address 75 [facility] 7t [place] [address] Care Team Providers Care System Manager Name Role Phone Tor Crews MD Primary Care Provide r Encounter Details Date Type Department Care Team (Latest Contact Info) Description 04/26/2021 Abstract [facility] CONVERSIONS Dental, Provider, DDS Social History Tobacco [...] Upcoming Encounters Date Type Department Care Team ( st Contact Info) Description 01/20/2025 11:00 AM EDT Office Visit [facility] ADULT DENTAL [address] [place] [address] Kristen Perez 02/10/2025 1:00 PM EDT Office Visit [facility] MEDICINE [address] [place] [address] Tor Crews MD [address] [place] [address] 06/01/2025 10:00 AM EDT Office Visit [facility] ADULT DENTAL [address] [place] [address] Kristen Perez documented as of this encounter Visit Diagnoses Not on filedocumented in this encounter Care Teams System Manager Relationship Specialty Start Date End Date Tor Crews MD [address] [place] [address] PCP - General Internal Medicine 07/21/14 documented as of this encounter
--- OUTSIDE RECORDS SUMMARY | 2024-12-28 07:55 | XMS_ITS | Encounter Summary ---
Author Organization [employer] Address [address] [facility] [address] 7t [place] [address] Care Team Providers Care Wire Taper Name Role Phone Tor Crews MD Primary Care Provide r Reason for Visit * Reason Comments Med Refill Encounter Details Date Type Department Care Team (Late st Contact Info) Description 12/19/2023 Refill [facility] [address] [place], [place] [phone] Sinai Sesay MD [address] [place] [address] Social History Tobacco Use Types Packs/Day Years [...] Care Team (Late st Contact Info) Description 01/20/2025 11:00 AM EDT Office Visit [facility] [address] [place] [address] Kristen Perez 02/10/2025 1:00 PM EDT Office Visit [facility] [address] [place] [address] Tor Crews MD [address] [place] [address] 06/01/2025 10:00 AM EDT Office Visit [facility] [address] [place] [address] Kristen Perez documented as of this encounter Visit Diagnoses Not on filedocumented in this encounter Additional Health Concerns Assessment Noted Time PHQ-9 Depression Total Score: 4 03/04/20 23 2:58 PM EDT documented as of this encounter Care Teams Wire Taper Relationship Specialty Start Date End Date Tor Crews MD [address] [place] [address] PCP - General Internal Medicine 07/21/14 documented as of this encounter
--- OUTSIDE RECORDS SUMMARY | 2024-12-28 07:55 | XMS_ITS | Clinical Summary ---
Author Organization [facility] Address [address] [place] [address] [facility] [place] [address] Phone Care Team Providers Care Curtain Feller Blindstitch Name Role Phone Tor Guzman MD Primary [...] to 64 Years) Completed 04/17/2023 [place] [address] [facility] ([id number]) [facility] ([id number]) Care Teams Curtain Feller Blindstitch Relationship Specialty Start Date End Date Tor Guzman MD PCP - General 11/06/20
--- OUTSIDE RECORDS SUMMARY | 2024-12-28 07:55 | XMS_ITS | Encounter Summary ---
Author Organization [employer] Address [address] [facility] [address] 7t [place] [address] Care Team Providers Care Laborer Wrecking And Salvaging Name Role Phone Tor Crews MD Primary Care Provide r Encounter Details Date Type Department Care Team (Late st Contact Info) Description 11/28/2022 Abstract [facility] MEDIC[facility] [address] [place] [address] Tor Crews MD [address] [place], [place] [phone] Social History Tobacco Use Types Packs/Day Years [...] Description 01/20/2025 11:00 AM EDT Office Visit [facility] ADULT DENTAL [address] [place], [place] [phone] Kristen Perez 02/10/2025 1:00 PM EDT Office Visit [facility] [address] [place], [place] [phone] Tor Crews MD [address] [place] [address] 06/01/2025 10:00 AM EDT Office Visit [facility] ADULT DENTAL [address] [place], [place] [phone] Kristen Perez documented as of this encounter Visit Diagnoses Not on filedocumented in this encounter Care Teams Laborer Wrecking And Salvaging Relationship Specialty Start Date End Date Tor Crews MD [address] [place] [address] PCP - General Internal Medicine 07/21/14 documented as of this encounter
--- OUTSIDE RECORDS SUMMARY | 2024-12-28 07:55 | XMS_ITS | Encounter Summary ---
Author Organization [employer] Address [address] [facility] [address] 7t [place] [address] Care Team Providers Care Law Firm Partner Name Role Phone Tor Crews MD Primary Care Provide r Reason for Visit * Reason Comments Med Refill Encounter Details Date Type Department Care Team ([facility] st Contact Info) Description 08/07/2023 Refill [facility] [address] [place], [place] [phone] Tor Crews MD [address] [place], [place] [phone] Hypertriglyceridemia Social History Tobacco Use Types Packs/Day [...] Description 01/20/2025 11:00 AM EDT Office Visit [facility] ADULT DENTAL [address] [place] [address] Kristen Perez 02/10/2025 1:00 PM EDT Office Visit [facility] [address] [place] [address] Tro Crews MD [address] [place] [address] 06/01/2025 10:00 AM EDT Office Visit [facility] ADULT DENTAL [address] [place] [address] Kristen Perez documented as of this encounter Visit Diagnoses Diagnosis Hypertriglyceridemia Pure hyperglyceridemia documented in this encounter Additional Health Concerns Assessment Noted Time PHQ-9 Depression Total Score: 4 03/04/20 23 2:58 PM EDT documented as of this encounter Care Teams Law Firm Partner Relationship Specialty Start Date End Date Tor Crews MD [address] [place] [address] PCP - General Internal Medicine 07/21/14 documented as of this encounter
--- OUTSIDE RECORDS SUMMARY | 2024-12-28 07:55 | XMS_ITS | Encounter Summary ---
Author Organization [employer] Address 75 [facility] 7t [place] [address] Care Team Providers Care Junior Software Developer Name Role Phone Tor Crews MD Primary Care Provide r Reason for Visit * Reason Comments Med Refill Encounter Details Date Type Department Care Team (Late st Contact Info) Description 05/23/2023 Refill [facility] MEDICINE [address] [place] [phone] Tor Crews MD 230 [place], [place] [phone] Acute pain of right knee Social History [...] Description 01/20/2025 11:00 AM EDT Office Visit [facility] ADULT DENTAL [address] [place], [place] [phone] Kristen Perez 02/10/2025 1:00 PM EDT Office Visit [facility] MEDICINE [address] [place] [address] Tor [facility]s MD [facility] [place] [address] 06/01/2025 10:00 AM EDT Office Visit [facility] ADULT DENTAL [address] [facility] [address] Kristen Perez documented as of this encounter Visit Diagnoses Diagnosis Acute pain of right knee documented in this encounter Additional Health Concerns Assessment Noted Time PHQ-9 Depression Total Score: 4 03/04/20 23 2:58 PM EDT documented as of this encounter Care Teams Junior Software Developer Relationship Specialty Start Date End Date Tor Crews MD [address] [facility] [address] PCP - General Internal Medicine 07/21/14 documented as of this encounter
--- OUTSIDE RECORDS SUMMARY | 2024-12-28 07:55 | XMS_ITS | Encounter Summary ---
Author Organization [employer] Address [address] [facility] [address] 7t [place] [address] Care Team Providers Care Colorist Dyer Name Role Phone Tor Crews MD Primary Care Provide r Reason for Visit * Reason Onset Date Comments Hospital Follow-up 10/26/2024 Encounter Details Date Type Department Care Team ([facility] st Contact Info) Description 10/26/2024 Telephone [facility] MEDICINE [address] [place], [place] [phone] Tor Crews MD [address] [place], [place] [phone] Hospital Follow-up Social History Tobacco Use Types [...] Miscellaneous Notes * Telephone Encounter - Harsha Duncan - 10/26/2024 9:32 AM EST Tc from pt requesting a HDF appt. Hospital: [facility] Date of admission: 10/20/2024 Discharge date: 10/25/2024 Diagnosed: Asthma *Send message to [place] Clinical Care Coordinators documented in this encounter Plan of Treatment Upcoming Encounters Date Type Department Care Team (Late st Contact Info) Description 01/20/2025 11:00 AM EDT Office Visit [facility] ADULT DENTAL [address] [place] [address] Kristen Perez 02/10/2025 1:00 PM EDT Office Visit [facility] MEDICINE [address] [place] [address] Tor Crews MD [address] [place] [address] 06/01/2025 10:00 AM EDT Office Visit [facility] ADULT DENTAL [address] [place] [address] Kristen Perez documented as of this encounter Visit Diagnoses Not on filedocumented in this encounter Additional Health Concerns Assessment Noted Time PHQ-9 Depression Total Score: 4 03/04/20 23 2:58 PM EDT documented as of this encounter Care Teams Colorist Dyer Relationship Specialty Start Date End Date Tor Crews MD [address] [place] [address] PCP - General Internal Medicine 07/21/14 documented as of this encounter
--- OUTSIDE RECORDS SUMMARY | 2024-12-28 07:55 | XMS_ITS | Encounter Summary ---
Author Organization [employer] Address [address] [facility] [address] 7t [place] [address] Care Team Providers Care Hedge Fund Manager Name Role Phone Tor Crews MD Primary Care Provide r Reason for Visit * Reason Comments Routine Cleaning Dental Exam Encounter Details Date Type Department Care Team (Late st Contact Info) Description 11/29/2024 10:00 AM EST Office Visit [facility] ADULT DENTAL [address] [place] [address] Kristen Perez Dental calculus (Primary Dx); Dental [...] t he electric, gas, oil or water [employer] (Inspect Manager) threatened to shut off services in your [...] Timeout Time: 1016 (Dental Prophy Adult) Location: [facility] Tooth: Maxilla and Mandible Procedure: Exam, X-rays, and Prophylaxis Verified the above with patient, assistant branch operations manager, and provider. Confirmed via patient's chart, intraorally and by radiographs. Goat Driver: not applicable Medical Hx: Vitals: Blood pressure [...] patient including brushing technique and flossing. Recommendations: Alvada two times daily, modified kendrick technique, Floss daily, Electric toothbrush, Soft bristle toothbrush, [place] Tongue, Anti-sensitivity toothpaste Recall Frequency: 6 mo [...] Timeout Time: 1016 (Dental Prophy Adult) Location: [facility] Tooth: Maxilla and Mandible Procedure: Exam, X-rays, and Prophylaxis Verified the above with patient, assistant branch operations manager, and provider. Confirmed via patient's chart, intraorally and by radiographs. Goat Driver: not applicable Chief Complaint Patient presents with Routine Cleaning Dental Exam Medical Hx: Vitals: Blood pressure (!) 148/84. Past Medical History: Diagnosis Date Chronic systolic heart failure (CMS/HCC) Hypertension Ingrowing nail, right great toe 10/06/2017 Mixed hyperlipidemia Type 2 diabetes mellitus with stage 3a chronic kidney disease, with long-term current use of insulin ([facility]) Medications: Outpatient Encounter Medications as of 11/29/2024 [...] 90 tablet 3 Blood Glucose Monitoring Suppl ([employer]idelity[employer] [place] Lite) w/Device kit Use to test blood [...] Cancer Risk: Low Risk Oral Hygiene Instructions: Alvada two times daily, modified kendrick technique, Floss daily, Soft bristle toothbrush, [place]vada Tongue Caries Risk Assessment: Low- no risk factor Assessment/Plan SRPs Add tooth upper RPD Patient tolerated procedure well, all questions answered and expressed understanding. Dismissed in good condition. NV: Earline Wad Lubricator: Kristen Perez Dentist: Socorro Marinelli DDS documented in this encounter Plan of Treatment Upcoming Encounters Date Type Department Care Team (Late st Contact Info) Description 01/20/2025 11:00 AM EDT Office Visit [facility] ADULT DENTAL [address] [place] [address] Kristen Perez 02/10/2025 1:00 PM EDT Office Visit [facility] MEDICINE [address] [place] [address] Tor Crews MD 230 [place] [address] 06/01/2025 10:00 AM EDT Office Visit [facility] ADULT DENTAL [address] [place] [address] Kristen Perez Scheduled Orders Name Type Priority Associated Diagnoses Orde r Schedule UL UL PERIODONTAL SCALING AND ROOT PLANING - 1 TO 3 TEETH PER QUADRANT Dental Routine 1 Occurrences [facility] 11/29/2024 LL LL PERIODONTAL SCALING AND ROOT PLANING - 1 TO 3 TEETH PER QUADRANT Dental Routine 1 Occurrences [facility] 11/29/2024 UR UR PERIODONTAL SCALING AND ROOT PLANING - 1 TO 3 TEETH PER QUADRANT Dental Routine 1 Occurrences [facility] 11/29/2024 LR LR PERIODONTAL SCALING AND ROOT PLANING - 1 TO 3 TEETH PER QUADRANT Dental Routine 1 Occurrences [facility] 11/29/2024 documented as of this encounter Procedures [...] Tartar deposits on teeth Subgingival dental calculus INTRAORAL - COMPLETE SERIES OF RADIOGRAPHIC IMAGES Routine 11/29/2024 10:00 AM EST COMPREHENSIVE PERIODONTAL EVALUATION - NEW OR ESTABLISHED PATIENT Routine 11/29/2024 10:00 AM EST Dental calculus Dental plaque Tartar deposits on teeth Subgingival dental calculus Periodontal disease Encounter for dental examination CASE PRESENTATION, DETAILED AND EXTENSIVE TREATMENT PLANNING Routine 11/29/2024 [...] documented as of this encounter Care Teams Hedge Fund Manager Relationship Specialty Start Date End Date Tor Crews MD [address] [place] [address] PCP - General Internal Medicine 07/21/14 documented as of this encounter
--- OUTSIDE RECORDS SUMMARY | 2024-12-28 07:55 | XMS_ITS | Encounter Summary ---
Author Organization [employer] Address 75 [facility] 7t [place] [address] Care Team Providers Care Pelletizer Tender Name Role Phone Tor Crews MD Primary Care Provide r Encounter Details Date Type Department Care Team (Late st Contact Info) Description 10/30/2022 Orders Only [facility] [address] [place] [address] Mahsa Bustillos LPN Social History Tobacco Use [...] Office Visit [facility] ADULT [facility] [address] [place] [address] Kristen Perez 02/10/2025 1:00 PM EDT Office Visit [facility] [address] [place] [address] Tor Crews MD [address] [place] [address] 06/01/2025 10:00 AM EDT Office Visit [facility] ADULT D[facility] [address] [place] [address] Kristen Perez documented as of this encounter Visit Diagnoses Not on filedocumented in this encounter Care Teams Pelletizer Tender Relationship Specialty Start Date End Date Tor Crews MD [address] [place] [address] PCP - General Internal Medicine 07/21/14 documented as of this encounter
--- OUTSIDE RECORDS SUMMARY | 2024-12-28 07:55 | XMS_ITS | Encounter Summary ---
Author Organization [employer] Address [address] [facility] [address] [place] [address] Care Team Providers Care Bandmill Operator Name Role Phone Tor Crews MD Primary Care Provide r Encounter Details Date Type Department Care Team (Late st Contact Info) Description 02/27/2023 Abstract [facility] MEDICINE [address] [place] [address] Tor Crews MD [address] [place], [place] [phone] Social History Tobacco Use Types Packs/Day Years [...] Description 01/20/2025 11:00 AM EDT Office Visit [facility] ADULT DENTAL [address] [place] [phone] Kristen Perez 02/10/2025 1:00 PM EDT Office Visit [facility] MEDICINE [address] [place], [place] [phone] Tor Crews MD [address] [place] [address] 06/01/2025 10:00 AM EDT Office Visit [facility] ADULT DENTAL [address] [place] [address] Kristen Perez documented as of this encounter Procedures Procedure Name Priority Date/Time Associated Diagnosis Comments HM COLONOSCOPY Routine 01/25/2022 documented in this encounter Results * Hm Colonoscopy (01/25/2022) Colonoscopy Normal Normal 01/25/2022 Narrative Radha Alves - 01/25/2022 2:56 PM EDT Recommended 10 year follow up ( see scanned notes) Historical Provider [facility] Edited Result - Final documented in this encounter Visit Diagnoses Not on filedocumented in this encounter Care Teams Bandmill Operator Relationship Specialty Start Date End Date Tor Crews MD [place] [phone] PCP - General Internal Medicine 07/21/14 documented as of this encounter
--- OUTSIDE RECORDS SUMMARY | 2024-12-28 07:55 | XMS_ITS | Encounter Summary ---
Author Organization [employer] Address [address] [place] [address] Care Team Providers Care Director Records Management Name Role Phone Tor Crews MD Primary Care Provide r Encounter Details Date Type Department Care Team ([facility] st Contact Info) Description 10/15/2024 Orders Only [facility] [address] [place], [place] [phone] Arcelia Watkins ANP [address] [place], [place] [phone] Social History Tobacco Use Types Packs/Day Years [...] Description 01/20/2025 11:00 AM EDT Office Visit [facility] [address] [place] [address] Kirsten Perez 02/10/2025 1:00 PM EDT Office Visit [facility] [address] [place] [address] Tor Crews MD [address] [place] [address] 06/01/2025 10:00 AM EDT Office Visit [facility] [address] [place] [address] Kristen Perez documented as of this encounter Visit Diagnoses Not on filedocumented in this encounter Additional Health Concerns Assessment Noted Time PHQ-9 Depression Total Score: 4 03/04/20 23 2:58 PM EDT documented as of this encounter Care Teams Director Records Management Relationship Specialty Start Date End Date Tor Crews MD [address] [place] [address] PCP - General Internal Medicine 07/21/14 documented as of this encounter
--- OUTSIDE RECORDS SUMMARY | 2024-12-28 07:55 | XMS_ITS | Encounter Summary ---
Author Organization [employer] Address [address] [place] [address] Care Team Providers Care Coremaker Apprentice Name Role Phone Tor Crews MD Primary Care Provide r Reason for Visit * Reason Onset Date Comments triage 01/13/2023 Encounter Details Date Type Department Care Team ([facility] st Contact Info) Description 01/13/2023 Telephone [facility] [address] [place], [place] [phone] Tor Crews MD [address] [place], [place] [phone] triage Social History Tobacco Use Types Packs/Day [...] 01/13/2023 1:24 PM EDT Triage call with [place] [place] [id number] Pt reports upper abdominal pain since last [...] light yellow/clear. Advised Pt to come to [facility] today and Pt agreed. Home [...] Description 01/20/2025 11:00 AM EDT Office Visit [facility] [address] [place] [address] Kristen Perez 02/10/2025 1:00 PM EDT Office Visit [facility] [address] [place] [address] Tor Crews MD [address] [place] [address] 06/01/2025 10:00 AM EDT Office Visit [facility] [address] [place] [address] Kristen Perez documented as of this encounter Visit Diagnoses Not on filedocumented in this encounter Care Teams Coremaker Apprentice Relationship Specialty Start Date End Date Tor Crews MD [address] [place] [address] PCP - General Internal Medicine 07/21/14 documented as of this encounter
--- OUTSIDE RECORDS SUMMARY | 2024-12-28 07:55 | XMS_ITS | Patient Health Record ---
Author Organization [facility] Address [address] [place] [address] Care Team Providers Care Director Of Email Marketing Name Role Phone Megan Bañuelos MD, Tor Primary Care Provide r Unavailable Juan M Morel Unavailable [phone] ALLERGIES No Known Allergies REASON FOR REFERRAL [...] W/U Status Risk SNOMED Code Notes Problem Encounter for screening for malignant neoplasm of colon (Z12.11) Active confirmed 007313150 Problem Gastritis (K29.70) Active confirmed Gas tritis (3306008) Problem Gastroesophageal reflux (K21.9) Active confirmed Esophageal reflux finding (230613872) Problem Diverticulosis of colon (K57.30) Active confirmed Diverticulosi s of colon (590767493) Problem Gastroesophageal reflux disease, unspecified whether esophagitis present (K21.9) Active confirmed [id number] PLAN OF TREATMENT Pending Test Test Name Order Date Pathology 01/25/2022 Future Test Test Name Order Date UPPER GI ENDOSCOPY 10/09/2021 COLONOSCOPY 10/09/2021 Insurance Providers Payer Name Payer Address Payer Phone Subscriber Number Group Number Insured Name Patient Relationship to Insured Coverage Start Date Coverage End Date [facility] [address] [facility] [place] [address] [id number] CARMINA LOMAX Self - patient is the insured MEDICAL (GENERAL) HISTORY Medical History History ICD Code GERD IDDM Hypertension Nonischemic cardiomyopathy-Johnny Nielson---seen at [facility] in [place] for ? cardiac transplant, but not on active list Sleep apnea- cpap machine Depression CHF Hyperlipidemia CKD stage 3 Asthma Pacemaker Denies [place],CVA Surgical History Surgery Date(Month/Year) Pacemaker 2009
--- OUTSIDE RECORDS SUMMARY | 2024-12-28 07:55 | XMS_ITS | Clinical Summary ---
Author Organization [address] [facility] Address [address] [place] [address] Phone Care Team Providers Care Shoer Name Role Phone Tor Villela MD Primary Care Provi pepe Social History Tobacco Use Types Packs/Day Years Used Date Smoking Tobacco: Never Assessed Sex and Gender Information Value Date Recorded Sex Assigned at Not on file Legal Sex Male 4:33 AM EST Gender Identity Not on file Sexual Orientation Not on file Plan of Treatment Upcoming Encounters Date Type Department Care Team ([facility] Contact Info) Description 02/01/2025 9:45 AM EDT Consult Orthopedic Surgery - [place] [phone] [address] Tod Little, DPM [address] [address] Health Maintenance Due Date Last Done Comments DTaP,Tdap,and Td Vaccines (1 - Tdap) 1990 Hepatitis B Vaccines (1 of 3 - 19+ 3-dose series) 1990 Pneumococcal Vaccine: 50+ Ye ars (1 of 1 - PCV) 2021 Zoster Vaccines (1 of 2) 2021 COVID-19 Vaccine ( - 2023-2 5 season) 2024 Influenza Vaccine [...] patient's age to complete this topic Meningococcal B Vacine Aged Out No lo nger eligible based on patient's age to complete [...] on patient's age to complete this topic Insurance MEDICAID - [place] [facility] MEDICARE Member Subscriber Plan / Payer (Ef fective 2019-Present) Name:Ian Godinez Relation to Subscriber:Self Name:Ian Godinez Payer ID:[id number] Group ID:[id number] Type:Not on file Address: [address] [place] [address] Care Teams Shoer Relationship Specialty Start Date End Date Tor Villela MD [address] [place] [address] [place] [address] PCP - General 07/29/24
--- OUTSIDE RECORDS SUMMARY | 2024-12-28 07:55 | XMS_ITS | Encounter Summary ---
Author Organization [facility] Address [address] [place] [address] Phone Care Team Providers Care Meat Cooler Name Role Phone Tor Guzman MD Primary Care Provider Unarohit ailable Encounter Details Date Type Department Care Team (Late st Contact Info) Description 11/10/2023 Office Communication [facility] [address] [place] [address] Ko Gorman MD [address] [facility] [address] [place] [address] Social History Tobacco Use Types [...] He stated he is not coming to [facility] * Telephone Encounter - Ko Gorman MD - 11/10/2023 8:42 PM EST Cathy appt with me in 4-6 wks documented in this encounter Plan of Treatment Not on file documented as of this encounter Visit Diagnoses Not on filedocumented in this encounter Care Teams Meat Cooler Relationship Specialty Start Date End Date Tor Guzman MD PCP - General 11/06/20 documented as of this encounter
--- OUTSIDE RECORDS SUMMARY | 2024-12-28 07:55 | XMS_ITS | Encounter Summary ---
Author Organization [employer] Address [address] [facility] [address] [place] [address] Care Team Providers Care Soft Boarder Name Role Phone Tor Crews MD Primary Care Provide r Reason for Visit * Reason Onset Date Comments FYI 12/01/2024 Encounter Details Date Type Department Care Team ([place] [facility] st Contact Info) Description 12/01/2024 Telephone [facility] [address] [place], [place] [phone] Tor Crews MD [address] [place], [place] [phone] FYI Social History Tobacco Use Types Packs/Day Years [...] encounter Miscellaneous Notes * Telephone Encounter - Maria Luisa Cabezas RN - 12/01/2024 4:30 PM EST Noted * Telephone Encounter - Gilberto Srinivasan - 12/01/2024 4:26 PM EST TC from [facility] reports will be discharging patient from home nursing services as of 12/06/24 documented in this encounter Plan of Treatment Upcoming Encounters Date Type Department Care Team (Late st Contact Info) Description 01/20/2025 11:00 AM EDT Office Visit [facility] [address] [place] [address] Kristen Perez 02/10/2025 1:00 PM EDT Office Visit [facility] [address] [place] [address] Tor Crews MD [address] [place] [address] 06/01/2025 10:00 AM EDT Office Visit [facility] [address] [place] [address] Kristen Perez documented as of this encounter Visit Diagnoses Not on filedocumented in this encounter Additional Health Concerns Assessment Noted Time PHQ-9 Depression Total Score: 4 03/04/20 23 2:58 PM EDT documented as of this encounter Care Teams Soft Boarder Relationship Specialty Start Date End Date Tor Crews MD [address] [place] [address] PCP - General Internal Medicine 07/21/14 documented as of this encounter
--- OUTSIDE RECORDS SUMMARY | 2024-12-28 07:55 | XMS_ITS | Clinical Summary ---
Author Organization [email or web address] Address [address] [place] [address] Care Team Providers Care Reptile Farmer Name Role Phone Tor Crews MD Primary [...] 500 mg by mouth 2 times daily. 021 Active mirtazapine (Remeron) 45 MG tablet Take 45 mg by mouth at bedtime. 023 Active sertraline (Zoloft) 100 MG tablet TAKE 2 TABLETS BY MOUTH EVERY DAY AT BEDTIME Diagnosis Unavailable 021 Active SM All Day Allergy Relief 10 MG tabletIndication s:Mixed hyperlipidemia TAKE 1 TABLET BY MOUTH EVERY DAY 90 tablet 023 Active empagliflozin (Jardiance) 25 MGIndications:Ty pe 2 diabetes mellitus without complication, unspecified whether babbitter insulin use (CMS/HCC) take 1 tablet by oral route every [...] 250 mcg by mouth in the morning. Active omeprazole (PriLOSEC) [address] capsuleIndicatio ns:Gastroesophag eal reflux disease without esophagitis TAKE 1 CAPSULE BY MOUTH EVERY DAY BEFORE MEALS 90 capsule 2 024 Active metoprolol succinate XL (Toprol-XL) 25 MG 24 hr tablet Take 25 mg by mouth Once per day. 1/2 tab daily Active furosemide (Lasix) 40 MG tablet Take 40 mg by mouth in the morning. Active FREESTYLE LITE test stripIndications :Type 2 diabetes mellitus with stage 3b chronic kidney disease, with long-term current use of insulin ([facility]) Use to test blood sugar 3 times daily 100 each 12 024 2024 Active Lancets miscIndications: Type 2 diabetes mellitus with stage 3b chronic kidney disease, with long-term current use of insulin ([facility]) Use to test blood sugar 3 times daily 100 each 024 Active Blood Glucose Monitoring Suppl (FreeStyle Munger Lite) w/Device kitIndications:T ype 2 diabetes mellitus with stage 3b chronic kidney disease, with long-term current use of insulin ([facility]) Use to test blood sugar 3 times daily 1 kit Active predniSONE (Deltasone) 20 MG tabletIndication s:Viral [...] complication, with long-term current use of insulin (CMS/[facility]) INJECT 46 UNITS SUBCUTANEOUSLY AT BEDTIME 15 mL 3 025 Active Entresto 24-26 MG tablet Take 1 tablet by mouth 2 times daily. 025 Active triamcinolone (Kenalog) 0.1 % cream Apply topically if needed in the morning and at bedtime (affected area). 30 g 2 025 Active omega-3 (Fish Oil) 1000 MG capsuleIndicatio ns:Mixed hyperlipidemia TAKE 1 CAPSULE BY MOUTH THREE TIMES DAILY 90 capsule 5 025 Active NovoLOG FLEXPEN 100 UNIT/ML penIndications:T ype 2 diabetes mellitus without complication, with long-term current use of insulin (CMS/[facility]) INJECT PER SLIDING SCALE FOR BLOOD SUGAR < 150 = DO NOT USE, 151-200 = 3 UNITS, 201-250 = 5U, 251-300 = 8U, 301-350 = 10U, 351-400 = 12U, > 400 = 15U AND CALL DOCTOR 15 mL 3 025 Active amoxicillin (Amoxil) 500 MG capsule Take 4 capsules of amoxicillin 500 mg 1 hour prior dental procedure 12 capsule 025 Active glyBURIDE (Diabeta) 5 MG tabletIndication s:Type 2 diabetes mellitus with stage 3b chronic kidney disease, with long-term current use of insulin (CMS/HCC) Take 1 tablet (5 mg) by mouth with breakfast. 60 tablet 1 02/11/2 025 Active semaglutide (Ozempic) 2 MG/1.5ML solution pen-injectorIndi cations:Type 2 diabetes mellitus with stage 3b chronic kidney disease, with long-term current use of insulin (CMS/HCC) Inject 2 mg under the skin 1 (one) time per week. 2 each 6 025 Active fluticasone (Flonase) 50 MCG/ACT nasal sprayIndications :Seasonal allergies INSTILL 2 SPRAYS IN EACH NOSTRIL ONCE DAILY 16 g 3 025 Active oxyCODONE (Roxicodone) 5 MG immediate release tablet Take 1 tablet by mouth every 8 (eight) hours. 022 2024 Discontinued(T herapy completed) fluticasone (Flonase) 50 MCG/ACT nasal sprayIndications :Seasonal allergies INSTILL 2 SPRAYS IN EACH NOSTRIL ONCE DAILY. SHAKE GENTLY. PRIME BEFORE FIRST USE. CLEAN DIRECTED 16 g 3 024 2024 Discontinued semaglutide (Ozempic) 2 MG/1.5ML solution pen-injectorIndi cations:Type 2 diabetes mellitus with stage 3b chronic kidney disease, with long-term current use of insulin (CMS/HCC) Inject 1 mg under the skin 1 (one) time per week. 2 each 12 025 2024 Discontinued(R eorder (will not trigger notification to Pharmacy)) glyBURIDE (Diabeta) 5 MG tabletIndication s:Type 2 diabetes mellitus with stage 3b chronic kidney disease, with long-term current use of insulin (CMS/HCC) Take 1 tablet (5 mg) by mouth 2 times daily. 60 tablet 1 025 2024 Discontinued(R eorder (will not trigger notification to Pharmacy)) Active Problems Problem Noted Date Diagnosed Date Hospital discharge follow-up 11/18/2024 Assessment & Plan (11/18/2024 1:37 PM EST): Patient is here for a HDF He was admitted to [facility] from 10/21-10/25/2024 After he presented with worsening [...] See image in chart. -Cleaned and used [place] cary to close laceration. -ER precautions discussed. [...] a HDF after a recent admission to [facility] for a syncopal episode. Pt presented to [...] of Carvedilol, Enteresto and Spironoloactone. Followed by electrical mechanic who recommended to keep all his medications [...] systolic heart failure 07/31/2017 Assessment & Plan (12/07/2024 11:25 AM EST): Patient is here for a f/u He has non-ischemic cardiomyopathy diagnosed in 2008 (etiology ? NANO ? ETOH relate ? Pt gives a Hx of over 20 years of very heavy drinking. Basic blood work to r/o other etiologies: TSH 06/09/2013 was wnl, , Lyme titers were negative, HIV (neg 12/2012 at [facility]) , SAMEER (neg 01/03/2013 at [facility] ) , ADRIÁN level was normal. Pt is s/p ICD placement in 2008 ([place]) Follows at the HF clinic , last seen 07/2022 Dr. Nielson recommended to Continue current neurohormonal modulation with Entresto, Daily weight monitoring and avoidance of salt loading . Continue aggressive blood pressure control. Encouraged to continue to participate in physical activity as tolerated and participate in weight loss program. He has done extremely well with medical management despite no [employer]. He was advised to continue to follow at [facility] for heart transplant evaluation.on annual basis. Last seen 07/14/2024 He was last seen by Dr Nielson 12/01/2024 He is on: Toprol X: 12.5 mg One tablet Daily Entresto 24-26 mg BID And Lasix 40 mg once Daily Had stress test at [facility] 09/14/[address] Layla VILLASENOR 08/05/2024 showed a normal EF improved from previous one. Assessment & Plan (09/21/2024 1:02 PM EST): Patient is here for a f/u He has non-ischemic cardiomyopathy diagnosed in 2008 (etiology ? NANO ? ETOH relate ? Pt gives a Hx of over 20 years of very heavy drinking. Basic blood work to r/o other etiologies: TSH 06/09/2013 was wnl, , Lyme titers were negative, HIV (neg 12/2012 at [facility]) , SAMEER (neg 01/03/2013 at [facility] ) , ADRIÁN level was normal. Pt is s/p ICD placement in 2008 ([place]) Follows at the HF clinic , last seen 07/2022 Dr. Nielson recommended to Continue current neurohormonal modulation with Entresto, Daily weight monitoring and avoidance of salt loading . Continue aggressive blood pressure control. Encouraged to continue to participate in physical activity as tolerated and participate in weight loss program. He has done extremely well with medical management despite no [employer]. He was advised to continue to follow at [facility] for heart transplant evaluation.on annual basis. Last seen 07/14/2024 He was last seen by Dr Nielson 02/25/2024 He is on: Toprol X: 12.5 mg One tablet Daily Entresto 24-26 mg BID And Lasix 40 mg once Daily Had stress test at [facility] 09/14/[address] Layla VILLASENOR 08/05/2024 showed a normal EF improved from [...] titers were negative, HIV (neg 12/2012 at [facility]) , SAMEER (neg 01/03/2013 at [facility] ) , ADRIÁN level was normal. Pt is s/p ICD placement in 2008 ([place] [employer]) Follows at the HF clinic , [...] extremely well with medical management despite no [employer]. He was advised to continue to follow at [facility] for heart transplant evaluation.on annual basis. Last seen 07/14/2024 He was last seen by Dr Nielson 02/25/2024 His Carvedilol was replaced with Toprol X: 12.5 mg One tablet Daily His Entresto was lowered to 24-26 mg BID His Lasix was lowered to 40 mg once Daily by Dr Rich at [facility] Assessment & Plan (03/23/2024 11:09 AM EDT): Patient is here for a f/u He has non-ischemic cardiomyopathy diagnosed in 2008 (etiology ? NANO ? ETOH relate ? Pt gives a Hx of over 20 years of very heavy drinking. Basic blood work to r/o other etiologies: TSH 06/09/2013 was wnl, , Lyme titers were negative, HIV (neg 12/2012 at [facility]) , SAMEER (neg 01/03/2013 at [facility] ) , ADRIÁN level was normal. Pt is s/p ICD placement in 2008 ([place] [employer]) Follows at the HF clinic , [...] extremely well with medical management despite no [employer]. He was advised to continue to follow with Dr Rivas at [facility] for heart transplant evaluation.on annual basis. He [...] titers were negative, HIV (neg 12/2012 at [facility]) , SAMEER (neg 01/03/2013 at [facility] ) , ADRIÁN level was normal. Pt is s/p ICD placement in 2008 ([place]) Follows at the HF clinic , last [...] extremely well with medical management despite no [employer]. Dr Nielson recommended Follow-up echocardiogram in 1 month's time. He was advised to continue to follow with Dr Rivas at [facility] for heart transplant evaluation.on annual basis. He [...] titers were negative, HIV (neg 12/2012 at [facility]) , SAMEER (neg 01/03/2013 at [facility] ) , ADRIÁN level was normal. Pt is s/p ICD placement in 2008 ([place]) Follows at the HF clinic , last seen 07/2022 Heart failure with reduced ejection fraction with much improved LV ejection fraction 40-45% with much improved symptoms with NYHA class 1 symptoms. Last seen by Dr. Nielson 05/12/2023 He was advised to continue to follow with Dr Rivas at [facility] for heart transplant evaluation.on annual basis. Dr. [...] extremely well with medical management despite no [employer]. Dr Nielson recommended Follow-up echocardiogram in 1 [...] titers were negative, HIV (neg 12/2012 at [facility]) , SAMEER (neg 01/03/2013 at [facility] ) , ADRIÁN level was normal. last EF 20-25% 2017 Pt is s/p ICD placement in 2008 ([place]) Follows at the HF clinic , last seen 07/2022 Pt tells me he has a f/u with Dr. Nielson as well He was advised to continue to keep appointment with Dr Rivas at [facility] for heart transplant evaluation. CKD stage 3 secondary to diabetes 12/26/2015 Assessment & Plan (12/07/2024 11:25 AM EST): Under the care of Nephrology, last seen 12/01/2024 Dr. Bonilla his heavy threader Lab Results Component Value Date GLUCOSE 340 (H) 10/16/2024 NA 140 11/23/2024 K 4.3 11/23/2024 CO2 24 11/23/2024 CL 110 (H) 11/23/2024 BUN 17 (H) 11/23/2024 CREATININE 1.56 (H) 11/23/2024 Assessment & Plan (11/18/2024 1:39 PM EST): Under the care of Nephrology, last seen 09/03/2024 Dr. Bonilla his heavy threader Lab Results Component Value Date GLUCOSE 340 (H) 10/16/2024 NA 137 10/16/2024 K 3.8 10/16/2024 CO2 20 (L) 10/16/2024 CL 107 10/16/2024 BUN 30 (H) 10/16/2024 CREATININE 1.65 (H) 10/16/2024 Will repeat Assessment & Plan (09/21/2024 12:58 PM EST): Under the care of Nephrology, last seen 09/03/2024 Dr. Bonilla his heavy threader Assessment & Plan (07/27/2024 11:47 AM EDT): Under the care of Nephrology, last seen 03/05/2024 Dr. Bonilla his heavy threader Assessment & Plan (03/23/2024 11:01 AM EDT): Under the care of Nephrology, last seen 03/05/2024 Dr. Bonilla his heavy threader Assessment & Plan (11/25/2023 12:08 PM EST): Under the care of Nephrology, last seen 07/16/2023. Dr. Bonilla his heavy threader Assessment & Plan (06/10/2023 9:25 AM EDT): Under the care of Nephrology, last seen 12/2022. I sent a message via [email or web address] to Dr. Bonilla his heavy threader letting him know I am starting patient [...] low fat low cholesterol diet, Referred to [facility]. RENITA Atorvastatin . Start Fenofibrate Follow up [...] use of insulin 04/13/2014 Assessment & Plan (12/07/2024 11:27 AM EST): Pt here for a f/u Blood glucose log shows BG ranging between 99 296 Hgb A1c 12/07/2024: 8.7 from 9.2 from 9.7 Microalbumin level 12/25/2021 was 5 Eye exam: 01/23/2022 Currently on a regimen of: Lantus 46 units sc qpm, Humalog sliding scale, Jardiance 25 mg, Ozempic 0.5 once a week His Metformin was restarted by [employer] in [place] 500 mg po BID once a day he stopped taking the Trulicity due to c/o nausea and vomiting. While in the hospital he was started on a sulfonylurea Glyburide 10 mg po BID Plan: Increase Ozempic 2 mg once a week, Lower Glyburide to 5 mg po daily and I have instructed patient to STOP if Blood sugar starts dropping below 80 2 month follow up Foot check risk of zero Pt reports compliance with Asa 81 mg po daily Pt advised to: adhere to diabetic diet check your blood sugars regularly check your feet on a daily basis Assessment & Plan (11/18/2024 1:54 PM EST): Pt here for a f/u Blood glucose log shows BG ranging between 99 296 Hgb A1c 09/21/2024 was: 9.2 from 9.7 Microalbumin level 12/25/2021 was 5 Eye exam: 01/23/2022 Currently on a regimen of: Lantus 46 units sc qpm, Humalog sliding scale, Jardiance 25 mg, Ozempic 0.5 once a week His Metformin was restarted by [employer] in [place] 500 mg po BID once a day [...] 25 mg, His Metformin was restarted by [employer] in [place] 500 mg po BID once a day [...] 25 mg, His Metformin was restarted by [employer] in [place] 500 mg po BID once a day [...] 1.5 mg His Metformin was restarted by [employer] in [place] 500 mg po BID Plan: No changes [...] a psychotherapist her name is Aj at [facility] . He used to see Dr. Colon but stopped due to lack of transportation His biggest complaint was lack of sleep. I have agreed to prescribe trazodone 100 mg po q hs prn. Obstructive sleep apnea syndrome 01/21/2013 Assessment & Plan (03/23/2024 10:59 AM EDT): Under the care of manufacturing specialist (Dr Rucker). [facility] 01/27/2024 Awaiting Cpap Assessment & Plan (11/25/2023 11:58 AM EST): Sleep study done on 03/08/2013 confirmed the diagnosis of moderately severe NANO. Pt reported compliance with Cpap machine And is now under the care of manufacturing specialist (Dr Rucker). Awaiting Cpap Assessment & Plan (05/13/2023 8:57 AM EDT): Sleep study done on 03/08/2013 confirmed the diagnosis of moderately severe NANO. Pt reported compliance with Cpap machine And is now under the care of manufacturing specialist (Dr Rucker). He told me his Cpap was no longer working and needed a new one He was referred back for Sleep study, to sleep clinic. Appointment scheduled for 05/16/2023 Assessment & Plan (03/04/2023 3:01 PM EDT): Sleep study done on 03/08/2013 confirmed the diagnosis of moderately severe NANO. Pt reported compliance with Cpap machine And is now under the care of manufacturing specialist (Dr Rucker). He tells me his Cpap is no longer working and needs a new one Plan: Sleep study, will refer to sleep clinic Cardiomyopathy 01/11/2013 Gastroesophageal reflux disease 01/11/2013 Resolved Problems Problem Noted Date Diagnosed Date Resolved Date Ingrowing nail, right great toe 10/06/2017 11/25/2023 Assessment & Plan (07/15/2023 3:25 PM EDT): Pt tells me the directional bore operator requested authorization from PCP to take care of his ingrown toe nail Plan: Podiatry referral Congestive heart failure 01/21/2013 Encounters Date Type Department Care Team Description 12/19/2024 Refill [facility] [address] [place] [address] Tor Crews MD Seasonal allergies 12/10/2024 1:30 PM EST Office Visit [facility] [address] [place] [address] Socorro Marinelli DDS Tooth missing (Primary Dx) 12/07/2024 11:15 AM EST Office Visit [facility] [place] [place] [address] Tor Crews MD Chronic systolic heart failure (CMS/HCC) (Primary Dx); Type 2 diabetes mellitus with stage 3b chronic kidney disease, with long-term current use of insulin (CMS/HCC); CKD stage 3 secondary to diabetes (CMS/HCC) 12/07/2024 Travel 12/01/2024 Telephone [facility] [address] [place] [address] Tor Crews MD FYI 11/29/2024 10:00 AM EST Office Visit [facility] [address] [place] [address] Kristen Perez Dental calculus (Primary Dx); Dental plaque; Tartar deposits on teeth; Subgingival dental calculus; Periodontal disease; Encounter for dental examination 11/29/2024 Telephone [facility] [address] [place] [address] Tor Crews MD Chart Prep 11/23/2024 Orders Only GENERIC EXTERNAL DATA DEPARTMENT Provider, Generic External Data 11/20/2024 Refill [facility] [address] [facility] [place] [address] Tor Crews MD Mixed hyperlipidemia; Type 2 diabetes mellitus without complication, with long-term current use of insulin ([facility]) 11/18/2024 1:30 PM EST Office Visit [facility] [place] [address] Tor Crews MD Hospital discharge follow-up (Primary Dx); Mild intermittent asthma without complication; Essential hypertension; CKD stage 3 secondary to diabetes (CMS/[facility]); Type 2 diabetes mellitus with stage 3b chronic kidney disease, with long-term current use of insulin (CMS/[facility]); Class 1 obesity due to excess calories with serious comorbidity and body mass index (BMI) of 30.0 to 30.9 in adult; Dietary counseling; Exercise counseling 11/18/2024 Travel 11/18/2024 Refill [facility] [address] [place] [address] Tor Crews MD Type 2 diabetes mellitus without complications ([facility]/HCC) 11/12/2024 Refill [facility] [address] [facility] [place] [address] Brooke Meraz MD Type 2 diabetes mellitus without complication, with long-term current use of insulin ([facility]) 11/11/2024 Telephone [facility] [address] [facility] [place] [address] Tor Crews MD Chart Prep 10/26/2024 Patient Outreach [facility] [address] [facility] [place] [address] Tor Crews MD Transition Of Care (Tcm) (HDF- scheduled and SDOH screening completed on 03/23/2024) 10/26/2024 Telephone [facility] [address] [place] [phone] Tor Crews MD Hospital Follow-up 10/21/2024 Orders Only [facility] External Provider, [facility] 10/20/2024 Refill [facility] [address] [place] [address] Tor Crews MD 10/18/2024 Refill [facility] [address] [place] [address] Tor Crews MD 10/16/2024 Orders Only GENERIC EXTERNAL DATA DEPARTMENT Provider, Generic External Data 10/15/2024 Orders Only [address] [address] Arcelia Watkins ANP 10/15/2024 Refill [facility] [address] [place] [address] Tor Crews MD Hypertriglyceridemia 10/14/2024 9:40 AM EST Office Visit [facility] [address] [address] Michelle Sosa MD Viral URI (Primary Dx); Mild intermittent asthma with acute exacerbation; Laceration of left ring finger without foreign body without damage to nail, initial encounter; Laceration of left index finger w/o foreign body w/o damage to nail, initial encounter 10/07/2024 9:20 AM EST [facility] [address] [address] Adebayo Baker MD Arthritis of right knee (Primary Dx) 10/07/2024 Telephone [facility] [address] [place] [phone] Tor Crews MD Nurse Triage from Last 3 Months Immunizations Name Administration [...] Sign Reading Time Taken Comments Blood Pressure 122/69 12/07/2024 11:07 AM EST Pulse 75 12/07/2024 11:07 AM EST Temperature 36.2 ??C (97.1 ??F) 12/07/2024 1 1:07 AM EST Respiratory Rate 20 12/07/2024 11:0 7 AM EST Oxygen Saturation 99% 12/07/2024 11: 07 AM EST Inhaled Oxygen Concentration - - Weight 93.4 kg (205 lb 12.8 oz) 025 11:07 AM EST Height 172.7 cm (5' 8 ) 12/07/2024 11:0 7 AM EST Body Mass Index 31.29 12/07/2024 11:07 AM EST Plan of Treatment Upcoming Encounters Date Type Department Care Team (Late st Contact Info) Description 01/20/2025 11:00 AM EDT Office Visit [facility] [address] [place] [address] Kristen Perez 02/10/2025 1:00 PM EDT Office Visit [facility] [address] [place] [address] Tor Crews MD [address] [place] [address] 06/01/2025 10:00 AM EDT Office Visit [facility] [address] [place] [address] Kristen Perez Health Maintenance Due Date Last Done Comments CT Colonography 1971 FIT DNA/Cologuard 1971 FIT 1971 FOBT 1971 HIV Screening 1971 Sigmoidoscopy 1971 Diabetes: Foot Exam 1981 Hepatitis C Screening 1989 COVID-19 Vaccine ( season) 2024 11/20/2021, 01/10/2021, 12/20/2020 Lipid Panel 09/09/2024 09/09/2023, 08/27, 06/04/2023, Additional history exists Hepatitis B Vaccines (2 of 3 - 19+ 3-dose series) 10/19/2024 09/21/2024 Diabetes: Hemoglobin A1C 03/06/2025 025, 09/21/2024, 07/27/2024, Additional history exists Depression Screening 03/23/2025 03/23/2024, 03/04/20 SDOH Screening 03/23/2025 03/23/2024 Dental Oral Exam 05/30/2025 11/29/2024, 04/18/2021 Dental Prophylaxis 05/30/2025 11/29/2024 Dental X-Ray: Bitewings 11/30/2025 11/29/19 25, 09/20/2024, 04/18/2021 Alcohol/Substance Use Screening 12/07/2025 12/07/2024 Tobacco Screening 12/10/2025 12/10/2024 Eye Exam 07/02/2026 07/02/2024, 03/2024, 07/02/2024, Additional history exists Dental X-Ray: Full [...] Procedure Name Priority Date/Time Associated Diagnosis Comments NO CHARGE VISIT Routine 12/10/2024 1:30 PM EST Tooth missing POCT GLYCATED HEMOGLOBIN, TOTAL Routine 12/07/2024 11:21 AM EST Type 2 diabetes mellitus with stage 3b chronic kidney disease, with long-term current use of insulin ([facility]) POCT GLUCOSE Routine 12/07/2024 11:15 AM EST Type 2 diabetes mellitus with stage 3b chronic kidney disease, with long-term current use of insulin ([facility]) COMPREHENSIVE PERIODONTAL EVALUATION - NEW OR ESTABLISHED PATIENT Routine 11/29/2024 10:00 AM EST Dental calculus Dental plaque Tartar deposits on teeth Subgingival dental calculus Periodontal disease Encounter for dental examination ORAL HYGIENE INSTRUCTIONS Routine 11/29/2024 10:00 AM EST Dental calculus Dental plaque Tartar deposits on teeth Subgingival dental calculus CASE PRESENTATION, DETAILED AND EXTENSIVE TREATMENT PLANNING [...] Routine 10/14/2024 9:52 AM EST Viral URI LIPID PANEL WITH REFLEX TO DIRECT LDL Routine 09/09/2023 7:57 AM EST Hypertriglyceridemi a HM COLONOSCOPY Routine 01/25/2022 from Last 3 Months or Most Recently Relevant to Health Maintenance Results * (ABNORMAL) POCT HGB A1C (12/07/2024 11:21 AM EST) Hemoglobin A1C 8.7(A) 4.0 - 6.0 % QC Media Lot # [id number] Lot# Expiration Date Blood 12/07/2024 11:2 1 AM EST Tor Bañuelos MD POINT OF CARE TEST EN TER/EDIT ORDERABLES Final Result * (ABNORMAL) POCT Glucose (12/07/2024 11:15 AM EST) Pathologist [facility] Glucose Blood, POC 206(A) 60 - 200 mg/dL QC Media Lot # [id number] Lot# Expiration Date Blood Capillary blood specimen / Unknown 12/07/2024 11:15 AM EST Tor Bañuelos MD POINT OF CARE TEST EN TER/EDIT ORDERABLES Final Result * Vitamin D, 25-Hydroxy, Total, Immunoassay (11/23/2024 10:37 AM EST) Pathologist [facility] Vitamin D 25-OH Total 31.5 >30 ng/mL [facility] Comment:Health Based Referen ce Values*< 20 ng/mL Wrusyacov57-97 ng/mL Insufficient> 30 ng/mL Sufficient*Rosa TIAN. N [...] Provider LAB BLOOD ORDERAB LES Final Result [facility] [address] [place] [address] [phone] * (ABNORMAL) Creatinine, Serum (11/23/2024 10:37 AM EST) Pathologist [facility] Creatinine, Serum 1.56(H) 0.5 - 1.4 mg/dL [facility] Estimated Glomerular Filt Rate 47 [facility] Comment:Chronic Kidney Disea se: Estimated GFR < 60 mL/min/1.73u0Zsonvr Kidney Disease: Estimated GFR < 15 mL/min/1.73m2 11/23/2024 10:3 7 AM EST 11/23/2024 10:37 AM EST us Generic External Data Provider LAB BLOOD ORDERAB LES Final Result [facility] [address] [place] [address] [phone] * (ABNORMAL) CBC auto differential (11/23/2024 10:37 AM EST) Only the most recent of2 resultswithin the time period is included. Pathologist [facility] White Blood Count 7.3 4.8 - 10.8 X10*3/uL [facility] Red Blood Count 5.08 4.60 - 5.80 X10*6/uL [facility] Hemoglobin 14.5 14.0 - 18.0 g/dl [facility] Hematocrit 42.0 42.0 - 52.0 % [facility] Mean Corpuscular Volume 82.7 80.0 - 98.0 fL [facility] Mean Corpuscular Hemoglobin 28.5 27.0 - 33.0 pg [facility] Mean Corpuscular HGB Conc 34.5 31.0 - 36.0 g/dl [facility] Red Cell Distribution Width 13.1 11.0 - 16.0 % [facility] Platelet Count 231 160 - 400 X10*3/uL [facility] Mean Platelet Volume 10.4 9.4 - 12.4 fL [facility] Neutrophils Percent Auto 70.9 45 - 73 % [facility] Imm Gran Pct Auto 0.8(H) 0.0 - 0.4 % [facility] Lymphocytes Percent Auto 20.7 20 - 40 % [facility] Monocytes Percent Auto 5.8 2 - 11 % [facility] Eosinophils Percent Auto 1.5 0 - 4 % [facility] Basophils Percent Auto 0.3 0 - 2 % [facility] NRBC Pct Auto 0.0 0.0 - 0.2 /100WBC [facility] Neutrophils Absolute Auto 5.2 2.0 - 8.3 x10*3/uL [facility] Imm Gran Abs Auto 0.06(H) 0.00 - 0.03 X10*3/uL [facility] Lymphocytes Absolute Auto 1.5 1.2 - 4.9 X10*3/uL [facility] Monocytes Absolute Auto 0.4 0.1 - 1.2 X10*3/uL [facility] Eosinophils Absolute Auto 0.1 0.0 - 0.4 X10*3/uL [facility] Basophils Absolute Auto 0.0 0.0 - 0.2 X10*3/uL [facility] NRBC Abs Auto 0.000 0.0 - 0.012 X10*3/uL [facility] 11/23/2024 10:3 7 AM EST 11/23/2024 10:37 AM EST us Generic External Data Provider LAB BLOOD ORDERAB LES Final Result [facility] [address] [place] [phone] * (ABNORMAL) BUN (Blood Urea Nitrogen) (11/23/2024 10:37 AM EST) Urea Nitrogen (BUN) 17(H) 9 - 16 mg/dL [facility] 11/23/2024 10:3 7 AM EST 11/23/2024 10:37 AM EST Generic External Data Provider LAB BLOOD ORDERAB LES Final Result Performing Organization Address [facility] Co de Phone Number [facility] [address] [place] [phone] * PTH, Intact Without Calcium (11/23/2024 10:37 AM EST) Parathyroid Hormone, Intact 18.6 8.7 - 77.1 pg/mL [facility] 11/23/2024 10:3 7 AM EST 11/23/2024 10:37 AM EST Generic External Data Provider LAB BLOOD ORDERAB LES Final Result Performing Organization Address [facility] Phone Number [facility] [address] [place] [phone] * (ABNORMAL) Calcium (11/23/2024 10:37 AM EST) Calcium 10.3(H) 8.4 - 10.2 mg/dL [facility] 11/23/2024 10:3 7 AM EST 11/23/2024 10:37 AM EST Generic External Data Provider LAB BLOOD ORDERAB LES Final Result Performing Organization Address [facility] de Phone Number [facility] [address] [place] [phone] * (ABNORMAL) Electrolyte Panel (11/23/2024 10:37 AM EST) Sodium 140 135 - 145 mmol/L [facility] Potassium 4.3 3.3 - 5.1 mmol/L [facility] Chloride 110(H) 96 - 108 mmol/L [facility] Carbon Dioxide 24 22 - 29 mmol/L [facility] Anion Gap 10(L) 12 - 20 [facility] 11/23/2024 10:3 7 AM EST 11/23/2024 10:37 AM EST us Generic External Data Provider LAB BLOOD ORDERAB LES Final Result [facility] [address] [place] [address] [phone] * XR Chest 2 Views (10/23/2024 3:13 PM EST) Only the most recent of2 resultswithin the time period is included. Anatomical Region Laterality Modality Chest Radiographic Fabiana ging 10/23/2024 3:13 PM EST Narrative 10/23/2024 3:14 PM EST ? [facility] ?[address] ?[place] [address] ?XRay Report ? Signed ? Patient: Godinez Godinez,Ian ?MR#: [id number] ?? [id number] ? : 1970 ?Acct:[id number] ? Age/Sex: 54 / M ?ADM Date: 10/21/24 ? Loc: HO.S3 ?346-1 ? Attending Dr: Nic Avery DO ? Ordering Physician: Nic Avery DO ?? Date of Service: 10/23/24 ?? Procedure(s): XR chest 2V ?? Accession Number(s): [id number] ? cc: Tor Villela MD; Nic Avery [...] by Kaelyn Leon MD in OV> ? 10/23/244 ? DD/ 1513 ? TD/TT: 10/23/24 1513 ? Chiropractic Neurologist: ? Procedure Note Jessy, Bailey - 10/23/2024 [facility] [address] [place] [address] XRay Report Signed Patient: Ian HernandezMR#: [id number] : 1970Acct:[id number] Age/Sex: 54 / MADM Date: 10/21/24 Loc: HO.S3 346-[address]: Nic Avery DO Ordering Physician: Nic Avery DO Date of Service: 10/23/24 Procedure(s): XR chest 2V Accession Number(s): [id number] cc: Tor Villela MD; Nic Avery DO [...] 10/23/24 1514 DD/ 1513 TD/TT: 10/23/24 1513 Chiropractic Neurologist: [facility] External Provider IMG XR PROCEDURES Edited Result - Final * (ABNORMAL) Glucose, Whole Blood (10/16/2024 1:10 PM EST) [facility] Glucose, Whole Blood 340(H) 60 - 115 mg/dL [facility] Comment:METER #: [id number] 10/16/2024 1:10 PM EST 10/16/2024 1:15 PM EST Generic External Data Provider LAB BLOOD ORDERAB LES Final Result [facility] [address] [place] [phone] * High Sensitivity Troponin I (10/16/2024 12:21 PM EST) [facility] TROPONIN I HIGH SENSITIVITY 5.1 <3.5 - 35.0 ng/L [facility] Comment:The [place] high sens itivity Troponin-I results should beused in conjunction with other diagnostic information suchas ECG, clinical observations and information, and patientsymptoms to aid in the diagnosis of [place]. 10/16/2024 12:2 1 PM EST 10/16/2024 12:24 PM EST Generic External Data Provider LAB BLOOD ORDERAB LES Final Result Performing Organization Address [facility]/ZIP Co de Phone Number [facility] [address] [place] [phone] * SARS-CoV-2 RNA, Influenza A/B, and RSV RNA, Ql NAAT (10/16/2024 12:21 PM EST) [facility] Influenza A PCR NEGATIVE Negative [facility] Influenza B PCR NEGATIVE Negative [facility] Resp Syncy Virus RNA Qual PCR NEGATIVE Negative [facility] SARS COV2 PCR NEGATIVE Negative [facility] Comment:All test results mus t [...] use by authorized laboratories.Testing performed on the [employer] GeneXpert utilizingreal-time RT-PCR.All SARS CoV2 and positive influenza A/B results arereported to [facility]. 10/16/2024 12:2 1 PM EST 10/16/2024 12:24 PM EST Generic External Data Provider LAB MICROBIOLOGY - GENERAL ORDERABLES Final Result Performing Organization Address [facility]/ZIP Co de Phone Number [facility] [address] [place] [phone] * Hepatic Function Panel (10/16/2024 12:21 PM EST) Bilirubin, Total 0.3 0.0 - 1.0 mg/dL [facility] Bilirubin, Direct 0.1 0.0 - 0.5 mg/dL [facility] Aspartate Amino Transferase 19 5 - 37 U/L [facility] Alanine Aminotransferase 23 0 - 40 U/L [facility] Total Protein 7.1 6.5 - 8.0 g/dL [facility] Albumin Level 4.0 3.5 - 5.0 g/dL [facility] Alkaline Phosphatase 73 39 - 117 U/L [facility] 10/16/2024 12:2 1 PM EST 10/16/2024 12:24 PM EST us Generic External Data Provider LAB BLOOD ORDERAB LES Final Result Performing Organization Address City/State/[facility] Co de Phone Number [facility] [address] [place] [phone] * (ABNORMAL) Basic Metabolic Panel (10/16/2024 12:21 PM EST) Pathologist [facility] Sodium 137 135 - 145 mmol/L [facility] Potassium 3.8 3.3 - 5.1 mmol/L [facility] Chloride 107 96 - 108 mmol/L [facility] Carbon Dioxide 20(L) 22 - 29 mmol/L [facility] Anion Gap 14 12 - 20 [facility] Urea Nitrogen (BUN) 30(H) 9 - 16 mg/dL [facility] Creatinine, Serum 1.65(H) 0.5 - 1.4 mg/dL [facility] Creatinine Clr Calc Pharmacy 55.6 [facility] Comment:eGFR (calculated fro m the MDRD study equation) and eCrCl(calculated from the Cockcroft-Gault equation) are based ondifferent parameters and may not yield comparable results.If eCrCl result is absurd, please check patient'sheight/weight. Estimated Glomerular Filt Rate 44 [facility] Comment:Chronic Kidney Disea se: Estimated GFR < 60 mL/min/1.20m5Qqleob Kidney Disease: Estimated GFR < 15 mL/min/1.73m2 Glucose 339(H) 60 - 115 mg/dL [facility] Calcium 8.8 8.4 - 10.2 mg/dL [facility] 10/16/2024 12:2 1 PM EST 10/16/2024 12:24 PM EST us Generic External Data Provider LAB BLOOD ORDERAB LES Final Result [facility] [address] [place], [place] [phone] * Laceration Repair (10/14/2024 10:20 AM EST) Narrative Michelle Sosa MD - 10/14/2024 10:20 AM EST Michelle Sosa MD ? 10/14/2024 11:08 AM Laceration Repair Date/Time: 10/14/2024 10:20 AM Performed by: Michelle Sosa MD Authorized by: Michelle Sosa MD ?? Consent: ??Consent obtained: ??Verbal ??Consent given by: ??Patient ??Risks, benefits, and alternatives were discussed: yes ?Risks discussed: ??Pain ??Alternatives discussed: ??No treatment Kimberly protocol: ??Procedure explained and questions answered to [...] Rapid Molecular) (10/14/2024 9:52 AM EST) [facility] Influenza B Negative Negative, Indeterminate [facility] Swab 10/14/2024 9:52 AM EST Michelle Sosa MD POINT OF CARE TEST ENTER/E DIT ORDERABLES Final Result Performing Organization Address [facility] Co de Phone Number [facility] [address] [place] [phone] * Influenza A (ID NOW Rapid Molecular) (10/14/2024 9:52 AM EST) [facility] Influenza A Negative Negative, Indeterminate [facility] Swab 10/14/2024 9:52 AM EST Michelle Sosa MD POINT OF CARE TEST ENTER/E DIT ORDERABLES Final Result Performing Organization Address [facility] Co de Phone Number [facility] [address] [place] [phone] * POCT Rapid COVID Ag (10/14/2024 9:52 AM EST) Pathologist [facility] Rapid COVID Ag Negative [facility] Swab 10/14/2024 9:52 AM EST Michelle Sosa MD POINT OF CARE TEST ENTER/E DIT ORDERABLES Final Result Performing Organization Address [facility] Co de Phone Number [facility] [address] [place] [phone] * (ABNORMAL) Lipid Panel with Reflex to Direct LDL (09/09/2023 7:57 AM EST) [facility] Triglycerides 448(H) <150 mg/dL [facility] Comment:Desirable Triglyceri de: less than 150 mg/dLBorderline High Triglyceride 150-199 mg/dLHigh Triglyceride: 200-499 mg/dLVery High Triglyceride: greater than or equal to 5OO mg/dL Cholesterol 204(H) <200 mg/dL [facility] Comment:Desirable Cholestero l: less than 200 mg/dLBorderline High Cholesterol: 200-239 mg/dLHigh Cholesterol: greater than 239 mg/dL LDL Cholesterol Calculated TNP <100 mg/dL [facility] Comment:Unable to calculate the LDL. The formula of Friedwald,Shepherd, and Pearl is only valid if the triglycerides areless than 400 mg/dl. HDL Cholesterol 34(L) >40 mg/dL [facility] Comment:Desirable HDL: great er than 40 mg/dL Note: This HDL assay may give artificially low results in patients with liver disease. Blood 09/09/2023 7:57 AM EST 09/09/2023 7:57 AM EST us Tor Bañuelos MD LAB BLOOD ORDERABLES Final Result [facility] [address] [place] [phone] [phone] * Colonoscopy (01/25/2022) Colonoscopy Normal Normal 01/25/2022 Narrative Radha Alves - 01/25/2022 2:56 PM EDT Recommended 10 year follow up ( see scanned notes) us Historical Provider HEALTH MAINTENANCE Edited Result - Final from Last 3 Months or Most Recently Relevant to Health Maintenance Insurance [facility] [place] [id number] [address] [facility] [place] [place] [id number] [place] [id number] Care Teams Reptile Farmer Relationship Specialty Start Date End Date Tor Crews MD [address] [place] [address] [place] [address] PCP - General Internal Medicine 07/21/14
--- OUTSIDE RECORDS SUMMARY | 2024-12-28 07:55 | XMS_ITS | Encounter Summary ---
Author Organization [employer] Address [address] [place] [address] Care Team Providers Care Automotive Brake Technician Name Role Phone Tor Crews MD Primary Care Provide r Encounter Details Date Type Department Care Team (Late st Contact Info) Description 12/17/2022 Orders Only [facility] [address] [place] [phone] Ally Rodríguez LPN Social History Tobacco Use [...] Description 01/20/2025 11:00 AM EDT Office Visit [facility] [address] [place] [address] Kristen Perez 02/10/2025 1:00 PM EDT Office Visit [facility] [address] [place] [address] Tor Crews MD [address] [place] [address] 06/01/2025 10:00 AM EDT Office Visit [facility] [address] [place] [address] Kristen Perez documented as of this encounter Visit Diagnoses Not on filedocumented in this encounter Care Teams Automotive Brake Technician Relationship Specialty Start Date End Date Tor Crews MD [address] [place] [address] PCP - General Internal Medicine 07/21/14 documented as of this encounter
--- OUTSIDE RECORDS SUMMARY | 2024-12-28 07:55 | XMS_ITS | Encounter Summary ---
Author Organization [email or web address] Address [address] [facility] [place] [address] Care Team Providers Care Budder Name Role Phone Tor Crews MD Primary Care Provide r Reason for Visit * Reason Comments Diabetes Encounter Details Date Type Department Care Team ([facility] st Contact Info) Description 12/07/2024 11:15 AM EST Office Visit [facility] MEDICINE [address] [place], [place] [phone] Tor Crews MD [address] [place], [place] [phone] Chronic systolic heart failure (CMS/HCC) (Primary Dx); Type 2 diabetes mellitus with stage 3b chronic kidney disease, with long-term current use of insulin (CMS/HCC); 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 male who presents for Diabetes. Diabetes He presents for his follow-up diabetic visit. He has type 2 diabetes mellitus. Pertinent negatives for hypoglycemia include no headaches. Pertinent negatives for diabetes include no chest pain. Review of Systems Constitutional: Negative for fever. HENT: Negative for sore throat. Respiratory: Negative for cough and shortness of breath. Cardiovascular: Negative for chest pain. Gastrointestinal: Negative for abdominal pain. Neurological: Negative for headaches. No Known Allergies OBJECTIVE Vitals: 12/07/24 1107 BP: 122/69 BP Location: Left arm Patient Position: Sitting BP Cuff Size: Large adult Pulse: 75 Resp: 20 Temp: 97.1 ??F (36.2 ??C) TempSrc: Temporal SpO2: 99% Weight: 205 lb 12.8 oz (93.4 kg) Height: 5' 8 (1.727 m) [...] Assessment/Plan Problem List Items Addressed This Visit Type 2 diabetes mellitus with stage 3b chronic kidney disease, with long-term current use of insulin ([facility]) Pt here for a f/u Blood glucose log shows BG ranging between 99 296 Hgb A1c 12/07/2024: 8.7 from 9.2 from 9.7 Microalbumin level 12/25/2021 was 5 Eye exam: 01/23/2022 Currently on a regimen of: Lantus 46 units sc qpm, Humalog sliding scale, Jardiance 25 mg, Ozempic 0.5 once a week His Metformin was restarted by Retail Assistant Store Manager in [place] 500 mg po BID once a day [...] feet on a daily basis Relevant Medications glyBURIDE (Diabeta) 5 MG tablet semaglutide (Ozempic) 2 MG/1.5ML solution pen-injector Other Relevant Orders POCT Glucose (Completed) POCT HGB A1C (Completed) Chronic systolic heart failure (CMS/HCC) - Primary Patient is here for a f/u He has non-ischemic cardiomyopathy diagnosed in 2008 (etiology ? NANO ? ETOH relate ? Pt gives a Hx of over 20 years of very heavy drinking. Basic blood work to r/o other etiologies: TSH 06/09/2013 was wnl, , Lyme titers were negative, HIV (neg 12/2012 at [facility]) , SAMEER (neg 01/03/2013 at [facility] ) , ADRIÁN level was normal. Pt is s/p ICD placement in 2008 (Jirafe) Follows at the HF clinic , last seen 07/2022 Dr. Nielson recommended to Continue current neurohormonal modulation with Entresto, Daily weight monitoring and avoidance of salt loading . Continue aggressive blood pressure control.Encouraged to continue to participate in physical activity as tolerated and participate in weight loss program. He has done extremely well with medical management despite no SURVEY RODMAN. He was advised to continue to follow at [facility] for heart transplant evaluation.on annual basis. Last seen 07/14/2024 He was last seen by Dr Nielson 12/01/2024 He is on: Toprol X: 12.5 mg One tablet Daily Entresto 24-26 mg BID And Lasix 40 mg once Daily Had stress test at [facility] 09/14/[address] Rich ECHO 08/05/2024 showed a normal EF improved from previous one. 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 Bonilla his reed fixer Lab Results Component Value Date GLUCOSE 340 (H) 10/16/2024 NA 140 11/23/2024 K 4.3 11/23/2024 CO2 24 11/23/2024 CL 110 (H) 11/23/2024 BUN 17 (H) 11/23/2024 CREATININE 1.56 (H) 11/23/2024 * Assessment & Plan Note - Tor Bañuelos MD - 12/07/2024 11:25 AM EST Associated Problem(s): Type 2 diabetes mellitus with stage 3b chronic kidney disease, with long-term current use of insulin ([facility]) Pt here for a f/u Blood glucose log shows BG ranging between 99 296 Hgb A1c 12/07/2024: 8.7 from 9.2 from 9.7 Microalbumin level 12/25/2021 was 5 Eye exam: 01/23/2022 Currently on a regimen of: Lantus 46 units sc qpm, Humalog sliding scale, Jardiance 25 mg, Ozempic 0.5 once a week His Metformin was restarted by Retail Assistant Store Manager in [place] 500 mg po BID once a day [...] Plan Note - Tor Bañuelos MD - 12/07/2024 11:25 AM EST Associated Problem(s): Chronic systolic heart failure (CMS/HCC) Patient is here for a f/u He has non-ischemic cardiomyopathy diagnosed in 2008 (etiology ? NANO ? ETOH relate ? Pt gives a Hx of over 20 years of very heavy drinking. Basic blood work to r/o other etiologies: TSH 06/09/2013 was wnl, , Lyme titers were negative, HIV (neg 12/2012 at [facility]) , SAMEER (neg 01/03/2013 at [facility] ) , ADRIÁN level was normal. Pt is s/p ICD placement in 2008 (Jirafe) Follows at the HF clinic , last seen 07/2022 Dr. Nielson recommended to Continue current neurohormonal modulation with Entresto, Daily weight monitoring and avoidance of salt loading . Continue aggressive blood pressure control.Encouraged to continue to participate in physical activity as tolerated and participate in weight loss program. He has done extremely well with medical management despite no SURVEY RODMAN. He was advised to continue to follow at [facility] for heart transplant evaluation.on annual basis. Last seen 07/14/2024 He was last seen by Dr Nielson 12/01/2024 He is on: Toprol X: 12.5 mg One tablet Daily Entresto 24-26 mg BID And Lasix 40 mg once Daily Had stress test at [facility] 09/14/[address] Rich ECHO 08/05/2024 showed a normal EF improved from previous one. documented in this encounter Plan of Treatment Upcoming Encounters Date Type Department Care Team (Late st Contact Info) Description 01/20/2025 11:00 AM EDT Office Visit [facility] ADULT DENTAL [address] [place] [address] Kristen Perez 02/10/2025 1:00 PM EDT Office Visit [facility] MEDICINE [address] [place] [address] Tor Crews MD [address] [place] [address] 06/01/2025 10:00 AM EDT Office Visit [facility] ADULT DENTAL [address] [place] [address] Kristen Perez documented as of this encounter Procedures Procedure Name Priority Date/Time Associated Diagnosis Comments POCT GLYCATED HEMOGLOBIN, TOTAL Routine 12/07/2024 11:21 AM EST Type 2 diabetes mellitus with stage 3b chronic kidney disease, with long-term current use of insulin (CMS/HCC) POCT GLUCOSE Routine 12/07/2024 11:15 AM EST Type 2 diabetes mellitus with stage 3b chronic kidney disease, with long-term current use of insulin (CMS/HCC) documented in this encounter Results * (ABNORMAL) POCT HGB A1C (12/07/2024 11:21 AM EST) Hemoglobin A1C 8.7(A) 4.0 - 6.0 % QC Media Lot # [id number] Lot# Expiration Date Blood 12/07/2024 11:2 1 AM EST Tor Bañuelos MD POINT OF CARE TEST EN TER/EDIT ORDERABLES Final Result * (ABNORMAL) POCT Glucose (12/07/2024 11:15 AM EST) Glucose Blood, POC 206(A) 60 - 200 mg/dL QC Media Lot # [id number] Lot# Expiration Date ,025 Blood Capillary blood specimen / Unknown 12/07/2024 11:15 AM EST Tor Bañuelos MD POINT OF CARE TEST EN TER/EDIT ORDERABLES Final Result documented in this encounter Visit Diagnoses Diagnosis Chronic systolic heart failure (CMS/HCC)- Primary Chronic systolic heart failure 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
--- OUTSIDE RECORDS SUMMARY | 2024-12-28 07:55 | XMS_ITS | Encounter Summary ---
Author Organization [employer] Address [address] [place] [address] Care Team Providers Care Compliance Representative Name Role Phone Tor Crews MD Primary Care Provide r Encounter Details Date Type Department Care Team (Latest Contact Info) Description 12/07/2024 Travel Social History Tobacco Use Types Packs/Day [...] [facility] [address] [place] [address] Kristen Perez 02/10/2025 1:00 PM EDT Office Visit [facility] MEDICINE [address] [place] [address] Tor Crews MD [address] [place] [address] 06/01/2025 10:00 AM EDT Office Visit [facility] ADULT DENTAL [address] [place] [address] Kristen Perez documented as of this encounter Visit Diagnoses Not on filedocumented in this encounter Additional Health Concerns Assessment Noted Time PHQ-9 Depression Total Score: 4 03/04/20 23 2:58 PM EDT documented as of this encounter Care Teams Compliance Representative Relationship Specialty Start Date End Date Tor Crews MD [address] [place] [address] PCP - General Internal Medicine 07/21/14 documented as of this encounter
--- OUTSIDE RECORDS SUMMARY | 2024-12-28 07:55 | XMS_ITS | Encounter Summary ---
Author Organization [employer] Address [address] [facility] 7t [place] [address] Care Team Providers Care Pattern Chart Writer Name Role Phone Tor Crews MD Primary Care Provide r Reason for Visit * Reason Comments Med Refill Encounter Details Date Type Department Care Team ([facility] st Contact Info) Description 11/18/2024 Refill [facility] MEDICINE [address] [place], [place] [phone] Tor Crews MD [address] [place], [place] [phone] Type 2 diabetes mellitus without complications (CMS/HCC) [...] Description 01/20/2025 11:00 AM EDT Office Visit [facility] ADULT DENTAL [address] [place] [address] Kristen Perez 02/10/2025 1:00 PM EDT Office Visit [facility] MEDICINE [address] [place] [address] Tor Crews MD [address] [place] [address] 06/01/2025 10:00 AM EDT Office Visit [facility] ADULT DENTAL [address] [place] [address] Kristen Perez documented as of this encounter Visit Diagnoses Diagnosis Type 2 diabetes mellitus without complications (CMS/[facility]) documented in this encounter Additional Health Concerns Assessment Noted Time PHQ-9 Depression Total Score: 4 03/04/20 23 2:58 PM EDT documented as of this encounter Care Teams Pattern Chart Writer Relationship Specialty Start Date End Date Tor Crews MD [address] [place] [phone] PCP - General Internal Medicine 07/21/14 documented as of this encounter
--- OUTSIDE RECORDS SUMMARY | 2024-12-28 07:55 | XMS_ITS | Encounter Summary ---
Author Organization [employer] Address [address] [facility] 7t [place] [address] Care Team Providers Care Litigation Docket Manager Name Role Phone Tor Crews MD Primary Care Provide r Reason for Visit * Reason Onset Date Comments Chart Prep 11/29/2024 Encounter Details Date Type Department Care Team ([facility] st Contact Info) Description 11/29/2024 Telephone [facility] MEDICINE [address] [place], [place] [phone] Tor Crews MD [address] [place], [place] [phone] Chart Prep Social History Tobacco Use Types [...] Description 01/20/2025 11:00 AM EDT Office Visit [facility] ADULT DENTAL [address] [place] [address] Kristen Perez 02/10/2025 1:00 PM EDT Office Visit [facility] MEDICINE [address] [place] [address] Tor Crews MD [address] [place] [address] 06/01/2025 10:00 AM EDT Office Visit [facility] ADULT DENTAL [address] [place] [address] Kristen Perez documented as of this encounter Visit Diagnoses Not on filedocumented in this encounter Additional Health Concerns Assessment Noted Time PHQ-9 Depression Total Score: 4 03/04/20 23 2:58 PM EDT documented as of this encounter Care Teams Litigation Docket Manager Relationship Specialty Start Date End Date Tor Crews MD [address] [place] [address] PCP - General Internal Medicine 07/21/14 documented as of this encounter
--- OUTSIDE RECORDS SUMMARY | 2024-12-28 07:56 | XMS_ITS | Encounter Summary ---
Author Organization [employer] Address [address] [facility] [address] [facility] [address] [place] [address] Care Team Providers Care Voice Instructor Name Role Phone Tor Crews MD Primary Care Provide r Reason for Visit * Reason Comments Med Refill Encounter Details Date Type Department Care Team ([facility] st Contact Info) Description 12/19/2024 Refill [facility] MEDICINE [address] [place], [place] [phone] Tor Crews MD [address] [place], [place] [phone] Seasonal allergies Social History Tobacco Use Types Packs/Day Years [...] Description 01/20/2025 11:00 AM EDT Office Visit [facility] ADULT DENTAL [address] [place] [address] Kristen Perez 02/10/2025 1:00 PM EDT Office Visit [facility] MEDICINE [address] [place] [address] Tor Crews MD [address] [place] [address] 06/01/2025 10:00 AM EDT Office Visit [facility] ADULT DENTAL [address] [place] [address] Kristen Perez documented as of this encounter Visit Diagnoses Diagnosis Seasonal allergies Allergic rhinitis, cause unspecified documented in this encounter Additional Health Concerns Assessment Noted Time PHQ-9 Depression Total Score: 4 03/04/20 23 2:58 PM EDT documented as of this encounter Care Teams Voice Instructor Relationship Specialty Start Date End Date Tor Crews MD [address] [place] [phone] PCP - General Internal Medicine 07/21/14 documented as of this encounter
--- OUTSIDE RECORDS SUMMARY | 2024-12-28 07:56 | XMS_ITS | Encounter Summary ---
Author Organization [employer] Address [address] [facility] 7t [place] [address] Care Team Providers Care Linux Developer Name Role Phone Tor Crews MD Primary Care Provide r Reason for Visit * Reason Comments Dentures Impression add tooth # 3 Encounter Details Date Type Department Care Team (Late st Contact Info) Description 12/10/2024 1:30 PM EST Office Visit [facility] ADULT DENTAL [address] [place] [address] Socorro Marinelli DDS [address] [place] [address] Tooth missing (Primary Dx) Social History Tobacco Use Types Packs/Day Years [...] AM EDT documented as of this encounter Progress Notes * Socorro Marinelli DDS - 12/10/2024 1:30 PM EST Patient ID: Ian Godinez is a 54 y.o. male. Time Out: Timeout Date: 12/10/24, Timeout Time: 1337 (add existing tooth to partial - impression) Location: [facility] Tooth: #3 Procedure: Dentures- adding tooth #3 to upper RPD Verified the above with patient, kindergarten assistant, and provider. Confirmed via patient's chart, intraorally and by radiographs. Automatic Trimming Sewer: not applicable Chief Complaint Patient presents with Dentures Impression add tooth # 3 Medical Hx: Vitals: There were no vitals taken for this visit. Medications, Med Hx reviewed with patient and updated in chart. Consent Obtained: The risks, benefits, indications, potential complications, and alternatives were explained to the patient and informed consent was obtained with good understanding. Treatment Provided: Dental procedures in this visit D9999 - NO CHARGE VISIT (Completed) Service provider: Socorro Marinelli DDS Billing provider: Socorro Marinelli DDS Impression taken with [place] of [place] Case sent to lab to add tooth #3 to existing upper RPD. Lab used: [facility] Lab Lab Due Date: 12/14/2024 Patient discharged alert, oriented, and in stable condition. NV: Delviery repaired RPD Professor Of Management: MILES Leiva Dentist: Socorro Marinelli DDS documented in this encounter Plan of Treatment Upcoming Encounters Date Type Department Care Team (Late st Contact Info) Description 01/20/2025 11:00 AM EDT Office Visit [facility] ADULT DENTAL [address] [facility] [place] [address] Kristen Perez 02/10/2025 1:00 PM EDT Office [facility] MEDICINE [address] [facility] [place] [address] Tor Crews MD [facility] [place] [address] 06/01/2025 10:00 AM EDT Office Visit [facility] ADULT D[facility]AL [facility] [place] [address] Kristen Perez Scheduled Orders Name Type Priority Associated Diagnoses Orde r Schedule 3 3 ADD TOOTH TO EXISTING PARTIAL DENTURE Dental Routine [address] arting 12/10/2024 DENTAL LAB DENTURES AND PARTIALS Dental Routine Ordered: 025 documented as of this encounter Procedures Procedure Name Priority Date/Time Associated Diagnosis Comments NO CHARGE VISIT Routine 12/10/2024 1:30 PM EST Tooth missing documented in this encounter Visit Diagnoses Diagnosis Tooth missing- Primary documented in this encounter Additional Health Concerns Assessment Noted Time PHQ-9 Depression Total Score: 4 03/04/20 23 2:58 PM EDT documented as of this encounter Care Teams Linux Developer Relationship Specialty Start Date End Date Tor Crews MD [facility] [place] [address] PCP - General Internal Medicine 07/21/14 documented as of this encounter
--- NOTE | 2024-12-28 08:25 | A.OFFVIS_ITS ---
Vital Signs 12/28/24 08:26 Height 5 ft 8 in Weight 208 lb BMI 31.6 BP 120/70 Blood Pressure Location Lt brachial Position Sitting Pulse 78 Pulse Source Pulse Oximeter Pulse Oximetry (%) 97 Oxygen Delivery Method Room Air Intake Visit Reasons: Follow up Intake Note: Patient presents follow up NANO. No-show PSG, labs in chart Allergies No Known Allergies [No Known Allergies*] Allergy (Verified 12/28/24 08:33) Medication List - Last Reconciled 12/28/24 by DARINEL Castillo acetaminophen (Tylenol Extra Strength) 1,000 mg (2 x 500 mg) PO QID PRN albuterol sulfate 90 mcg/actuation 2 inhalations inhalation Q4-6H PRN aspirin 81 mg PO DAILY blood sugar diagnostic (FreeStyle Lite Strips) As directed four times a day carvedilol (Coreg) 6.25 mg PO BID cholecalciferol (vitamin D3) 25 mcg PO DAILY digoxin 250 mcg PO DAILY doxycycline hyclate 100 mg PO BID empagliflozin (Jardiance) 25 mg PO DAILY fenofibrate 54 mg PO DAILY flash glucose scanning reader ([employer] Garrick 2 Nowata) As directed flash glucose sensor (FreeStyle Garrick 2 Sensor kit) As directed every 2 weeks furosemide 40 mg PO DAILY glyburide 10 mg (2 x 5 mg) PO BIDWM hydroxyzine pamoate 50 mg PO BEDTIME PRN insulin aspart U-100 See Protocol sliding scale doses subcut TIDAC insulin glargine 40 units subcut BEDTIME ivabradine (Corlanor) 7.5 mg PO BID lancets (TRUEplus Lancets) Four times a day metformin 500 mg PO BID metoprolol succinate ER 12.5 mg PO DAILY mirtazapine 45 mg PO BEDTIME nebulizers (AeroEclipse II Nebulizer) As directed omega [id number]-[id number]-fish oil 300 mg (120 mg- 180mg)-1,000 mg 1 cap PO TID omeprazole 40 mg PO DAILY@0630 pen needle, diabetic (Pentips Pen Needle) As directed prednisone 20 mg orally; 3 tabs daily for 3 days, 2 tabs daily for 3 days, 1 tab daily for 3 days sacubitril-valsartan 24-26 mg (Entresto) 1 tab See Protocol PO BID semaglutide (Ozempic) 0.5 mg subcut WE sertraline 200 mg PO DAILY spironolactone 12.5 mg See Protocol PO DAILY HPI Comments Details: Chief Complaint Follow-up on sleep apnea and review of lab results History of Present Illness The patient is a 54-year-old male presenting with follow-up on sleep apnea and review of lab results. The patient experiences obstructive sleep apnea, initially diagnosed requiring a CPAP machine, though adherence is inconsistent. He states he does not tolerate the air pressure or mask. He has lost 45 lbs since previous sleep study. A recent missed sleep study was due to hospitalization. Symptoms of leg cramps and paresthesia have emerged at night, potentially indicating neuropathy. Patient's legs can feel generally weak, but no focal weakness. Denies low back pain. Can feel the ground walking, he has a small area on ball of the right foot with altered sensation due to history of surgical procedure there. Previous recommendations included comprehensive lab workup to assess vitamin deficiencies, but these have not been completed. [facility] Medical History ICD (implantable cardioverter-defibrillator) lead failure Biventricular ICD (implantable cardioverter-defibrillator) in place Nonischemic cardiomyopathy GERD (gastroesophageal reflux disease) Asthma NANO (obstructive sleep apnea) Obesity due to excess calories HLD (hyperlipidemia) Type 2 diabetes mellitus with chronic kidney disease Heart failure with reduced ejection fraction Implantable cardioverter-defibrillator lead failure High cholesterol Diabetes HTN (hypertension) Pacemaker Surgical History S/P ICD (internal cardiac defibrillator) procedure History of tonsillectomy Hx of cardiac cath Hx of transesophageal echocardiography (DAWN) for monitoring History of permanent cardiac pacemaker placement (~2008) History of circumcision Family History Father HTN (hypertension) Diabetes CVD (cardiovascular disease) Hypercholesterolemia Mother Hypercholesterolemia HTN (hypertension) Diabetes Social History Household Members: Spouse Household Members Other:: SO:Thu Housing: Apartment Do you presently have visiting nurse or other home services: No Alcohol intake: current Alcohol intake frequency: 3 or more drinks per day Patient Tobacco Use Status: Never used Tobacco Tobacco use type: Cigarette service: No Physical Exam Vital Signs: Last Vital Signs Pulse 78 12/28/24 08:26 BP 120/70 12/28/24 08:26 Pulse Ox 97 12/28/24 08:26 Oxygen Delivery Method Room Air 12/28/24 08:26 BMI result Body Mass Index 31.6 Const General: no acute distress Orientation/consciousness: patient oriented x3 Resp Effort & Inspection: able to speak in complete sentences Neuro Other: Bilateral lower extremity muscle strength 5/5. Bilateral lower extremity light touch sensation intact General: patient oriented x3 Deep tendon reflexes (DTR's): Right patellar reflex intensity grade: 1+ and Left patellar reflex intensity grade: 1+ Psych Mental Status: mental status grossly normal Speech and movement: Clear speech present Attitude: cooperative Assessment & Plan Assessment & Plan (1) NANO (obstructive sleep apnea): Code(s): G47.33 - Obstructive sleep apnea (adult) (pediatric) Category: Medical (2) Muscle cramps: Code(s): R25.2 - Cramp and spasm Category: Medical (3) Restless legs syndrome (RLS): Code(s): G25.81 - Restless legs syndrome Category: Medical Plan Discussion Notes During the consultation, we discussed the need for comprehensive laboratory work to evaluate potential deficiencies in vitamins and minerals such as B12, B9, D, and magnesium. This could relate to the patient's neuropathic symptoms including leg cramps and paresthesia. We also talked about rescheduling the sleep study to assess current sleep apnea severity considering recent weight loss. I emphasized the importance of consistent CPAP usage pending further results and study. The patient was advised about lab completion post-visit with specific instructions provided. Plan Lab work is advised to evaluate for underlying etiologies BLE paresthesias restless leg symptoms, including vitamins B9, D, Magnesium. Suspected neuropathy or vitamin deficiency may be contributing to symptoms. Sleep apnea re-evaluation with a repeat sleep study is necessary. Consistency in CPAP use was stressed. - Continue to use PAP nightly with a goal of greater than 4 hours nightly, as patient is experiencing good clinical effect from use. - Clean and change PAP supplies routinely, including filters, masks, tubing, and water reservoir. - Use distilled water in PAP water resorvoir. Patient was informed and verbally consented to the use of an ambient scribe for clinic note documentation during this visit. Orders: Orders RT PSG in-lab sleep study Today G25.81 - Restless legs syndrome, G47.33 - Obstructive sleep apnea (adult) (pediatric) Coding Level of Care Code Est Pt Level 4 (09858) Diagnoses NANO (obstructive sleep apnea) G47.33 Muscle cramps R25.2 Restless legs syndrome (RLS) G25.81
[2024-12-28 08:26] VITALS: BP 120/70; PULSE 78; O2SAT 97; BMI 31.6
== END 2024-12-28 09:02 | disposition home or self-care (01) ==
PROVIDERS: PCP Internal Medicine; Visit Provider Nurse Practitioner Family
DX: G47.33 Obstructive sleep apnea (adult) (pediatric) (principal); G25.81 Restless legs syndrome
CPT/HCPCS: 99214

== ENCOUNTER 2024-12-28 07:53 | Outpatient (REF) | payer OTHER, SELFPAY ==
--- OUTSIDE RECORDS SUMMARY | 2024-12-28 10:07 | XMS_ITS | Clinical Summary ---
Author Organization [employer] Address [address] [place] [address] Care Team Providers Care Furnace Worker Name Role Phone Tor Crews MD [...] 2 diabetes mellitus without complication, unspecified whether termite treater helper insulin use (CMS/HCC) take 1 tablet by [...] disease, with long-term current use of insulin ([facility]) Use to test blood sugar 3 times daily 100 each 12 024 2024 Active Lancets miscIndications: Type 2 diabetes mellitus with stage 3b chronic kidney disease, with long-term current use of insulin ([facility]) Use to test blood sugar 3 times daily 100 each 024 Active Blood Glucose Monitoring Suppl (FreeStyle [place] Lite) w/Device kitIndications:T ype 2 diabetes mellitus with stage 3b chronic kidney disease, with long-term current use of insulin ([facility]) Use [...] for a HDF He was admitted to [facility] from 10/21-10/25/2024 After he [...] See image in chart. -Cleaned and used [place] cary to close laceration. -ER precautions discussed. [...] a HDF after a recent admission to [facility] for a syncopal episode. [...] of Carvedilol, Enteresto and Spironoloactone. Followed by hemodialysis rn who recommended to keep all his medications [...] titers were negative, HIV (neg 12/2012 at [facility]) , SAMEER (neg 01/03/2013 at [facility] ) , ADRIÁN level was normal. Pt is s/p ICD placement in 2008 ([employer]) Follows at the HF clinic , last seen 07/2022 Dr. Nielson recommended to Continue current neurohormonal modulation with Entresto, Daily weight monitoring and avoidance of salt loading . Continue aggressive blood pressure control. Encouraged to continue to participate in physical activity as tolerated and participate in weight loss program. He has done extremely well with medical management despite no SQL PROGRAMMER. He was advised to continue to follow at [facility] for heart transplant evaluation.on annual basis. Last seen 07/14/2024 He was last seen by Dr Nielson 12/01/2024 He is on: Toprol X: 12.5 mg One tablet Daily Entresto 24-26 mg BID And Lasix 40 mg once Daily Had stress test at [facility] 09/14/[address] Layla VILLASENOR 08/05/2024 showed [...] titers were negative, HIV (neg 12/2012 at [facility]) , SAMEER (neg 01/03/2013 at [facility] ) , ADRIÁN level was normal. Pt is s/p ICD placement in 2008 ([employer]) Follows at the HF clinic , last seen 07/2022 Dr. Nielson recommended to Continue current neurohormonal modulation with Entresto, Daily weight monitoring and avoidance of salt loading . Continue aggressive blood pressure control. Encouraged to continue to participate in physical activity as tolerated and participate in weight loss program. He has done extremely well with medical management despite no SQL PROGRAMMER. He was advised to continue to follow at [facility] for heart transplant evaluation.on annual basis. Last seen 07/14/2024 He was last seen by Dr Nielson 02/25/2024 He is on: Toprol X: 12.5 mg One tablet Daily Entresto 24-26 mg BID And Lasix 40 mg once Daily Had stress test at [facility] 09/14/[address] Layla VILLASENOR 08/05/2024 showed [...] titers were negative, HIV (neg 12/2012 at [facility]) , SAMEER (neg 01/03/2013 at [facility] ) , ADRIÁN level was normal. Pt is s/p ICD placement in 2008 ([employer]) Follows at the HF clinic , [...] extremely well with medical management despite no SQL PROGRAMMER. He was advised to continue to follow at [facility] for heart transplant evaluation.on annual basis. Last seen 07/14/2024 He was last seen by Dr Nielson 02/25/2024 His Carvedilol was replaced with Toprol X: 12.5 mg One tablet Daily His Entresto was lowered to 24-26 mg BID His Lasix was lowered to 40 mg once Daily by Dr Rich at [facility] Assessment & Plan (03/23/2024 11:09 AM EDT): Patient is here for a f/u He has non-ischemic cardiomyopathy diagnosed in 2008 (etiology ? NANO ? ETOH relate ? Pt gives a Hx of over 20 years of very heavy drinking. Basic blood work to r/o other etiologies: TSH 06/09/2013 was wnl, , Lyme titers were negative, HIV (neg 12/2012 at [facility]) , SAMEER (neg 01/03/2013 at [facility] ) , ADRIÁN level was normal. Pt is s/p ICD placement in 2008 ([employer]) Follows at the HF clinic , [...] extremely well with medical management despite no SQL PROGRAMMER. He was advised to continue to follow with Dr Rivas at [facility] for heart transplant evaluation.on annual basis. [...] titers were negative, HIV (neg 12/2012 at [facility]) , SAMEER (neg 01/03/2013 at [facility] ) , ADRIÁN level was normal. Pt is s/p ICD placement in 2008 ([employer]) Follows at the HF clinic , last [...] extremely well with medical management despite no SQL PROGRAMMER. Dr Nielson recommended Follow-up echocardiogram in 1 month's time. He was advised to continue to follow with Dr Rivas at [facility] for heart transplant evaluation.on annual basis. [...] titers were negative, HIV (neg 12/2012 at [facility]) , SAMEER (neg 01/03/2013 at [facility] ) , ADRIÁN level was normal. Pt is s/p ICD placement in 2008 ([employer]) Follows at the HF clinic , last seen 07/2022 Heart failure with reduced ejection fraction with much improved LV ejection fraction 40-45% with much improved symptoms with NYHA class 1 symptoms. Last seen by Dr. Nielson 05/12/2023 He was advised to continue to follow with Dr Rivas at [facility] for heart transplant evaluation.on annual basis. [...] extremely well with medical management despite no SQL PROGRAMMER. Dr Nielson recommended Follow-up echocardiogram in 1 [...] titers were negative, HIV (neg 12/2012 at [facility]) , SAMEER (neg 01/03/2013 at [facility] ) , ADRIÁN level was normal. last EF 20-25% 2017 Pt is s/p ICD placement in 2008 ([employer]) Follows at the HF clinic , last seen 07/2022 Pt tells me he has a f/u with Dr. Nielson as well He was advised to continue to keep appointment with Dr Rivas at [facility] for heart transplant evaluation. CKD stage 3 secondary to diabetes 12/26/2015 Assessment & Plan (12/07/2024 11:25 AM EST): Under the care of Nephrology, last seen 12/01/2024 Dr. Bonilla his animation camera operator Lab Results Component Value Date GLUCOSE 340 (H) 10/16/2024 NA 140 11/23/2024 K 4.3 11/23/2024 CO2 24 11/23/2024 CL 110 (H) 11/23/2024 BUN 17 (H) 11/23/2024 CREATININE 1.56 (H) 11/23/2024 Assessment & Plan (11/18/2024 1:39 PM EST): Under the care of Nephrology, last seen 09/03/2024 Dr. Bonilla his animation camera operator Lab Results Component Value Date GLUCOSE 340 (H) 10/16/2024 NA 137 10/16/2024 K 3.8 10/16/2024 CO2 20 (L) 10/16/2024 CL 107 10/16/2024 BUN 30 (H) 10/16/2024 CREATININE 1.65 (H) 10/16/2024 Will repeat Assessment & Plan (09/21/2024 12:58 PM EST): Under the care of Nephrology, last seen 09/03/2024 Dr. Bonilla his animation camera operator Assessment & Plan (07/27/2024 11:47 AM EDT): Under the care of Nephrology, last seen 03/05/2024 Dr. Bonilla his animation camera operator Assessment & Plan (03/23/2024 11:01 AM EDT): Under the care of Nephrology, last seen 03/05/2024 Dr. Bonilla his animation camera operator Assessment & Plan (11/25/2023 12:08 PM EST): Under the care of Nephrology, last seen 07/16/2023. Dr. Bonilla his animation camera operator Assessment & Plan (06/10/2023 9:25 AM EDT): Under the care of Nephrology, last seen 12/2022. I sent a message via [employer] to Dr. Bonilla his animation camera operator letting him know I am starting patient [...] low fat low cholesterol diet, Referred to Front End Developer Designer. RENITA Atorvastatin . Start Fenofibrate Follow up [...] a week His Metformin was restarted by Crawler Tractor Operator in [place] 500 mg po BID once a day [...] a week His Metformin was restarted by Crawler Tractor Operator in [place] 500 mg po BID once a day [...] 25 mg, His Metformin was restarted by Crawler Tractor Operator in [place] 500 mg po BID once a day [...] 25 mg, His Metformin was restarted by Crawler Tractor Operator in [place] 500 mg po BID once a day [...] 1.5 mg His Metformin was restarted by Crawler Tractor Operator in [place] 500 mg po BID Plan: No changes [...] a psychotherapist her name is Aj at [facility] . He used to see Dr. Colon but stopped due to lack of transportation His biggest complaint was lack of sleep. I have agreed to prescribe trazodone 100 mg po q hs prn. Obstructive sleep apnea syndrome 01/21/2013 Assessment & Plan (03/23/2024 10:59 AM EDT): Under the care of advanced clinical specialist (Dr Rucker). [facility] 01/27/2024 Awaiting Cpap Assessment & Plan (11/25/2023 11:58 AM EST): Sleep study done on 03/08/2013 confirmed the diagnosis of moderately severe NANO. Pt reported compliance with Cpap machine And is now under the care of advanced clinical specialist (Dr Rucker). Awaiting Cpap Assessment & Plan (05/13/2023 8:57 AM EDT): Sleep study done on 03/08/2013 confirmed the diagnosis of moderately severe NANO. Pt reported compliance with Cpap machine And is now under the care of advanced clinical specialist (Dr Rucker). He told me his Cpap was no longer working and needed a new one He was referred back for Sleep study, to sleep clinic. Appointment scheduled for 05/16/2023 Assessment & Plan (03/04/2023 3:01 PM EDT): Sleep study done on 03/08/2013 confirmed the diagnosis of moderately severe NANO. Pt reported compliance with Cpap machine And is now under the care of advanced clinical specialist (Dr Rucker). He tells me his Cpap is no longer working and needs a new one Plan: Sleep study, will refer to sleep clinic Cardiomyopathy 01/11/2013 Gastroesophageal reflux disease 01/11/2013 Resolved Problems Problem Noted Date Diagnosed Date Resolved Date Ingrowing nail, right great toe 10/06/2017 11/25/2023 Assessment & Plan (07/15/2023 3:25 PM EDT): Pt tells me the inside barrel polisher requested authorization from PCP to take care of his ingrown toe nail Plan: Podiatry referral Congestive heart failure 01/21/2013 Encounters Date Type Department Care Team Description 12/19/2024 Refill [facility] [address] [place] [address] Tor Crews MD Seasonal allergies 12/10/2024 1:30 PM EST Office Visit [facility] [address] [place] [address] Socorro Marinelli DDS Tooth missing (Primary Dx) 12/07/2024 11:15 AM EST Office Visit [facility] [place] [address] Tor Crews MD Chronic systolic heart failure (CMS/HCC) (Primary Dx); Type 2 diabetes mellitus with stage 3b chronic kidney disease, with long-term current use of insulin (CMS/HCC); CKD stage 3 secondary to diabetes (CMS/HCC) 12/07/2024 Travel 12/01/2024 Telephone [facility] [address] [place] [address] Tor Crews MD FYI 11/29/2024 10:00 AM EST Office Visit [facility] [address] [place] [address] Kristen Perez Dental calculus (Primary Dx); Dental plaque; Tartar deposits on teeth; Subgingival dental calculus; Periodontal disease; Encounter for dental examination 11/29/2024 Telephone [facility] [address] [place] [address] Tor Crews MD Chart Prep 11/23/2024 Orders Only GENERIC EXTERNAL DATA DEPARTMENT Provider, Generic External Data 11/20/2024 Refill [facility] [address] [facility] [place] [address] Tor Crews MD Mixed hyperlipidemia; Type 2 diabetes mellitus without complication, with long-term current use of insulin ([facility]) 11/18/2024 1:30 PM EST Office Visit [facility] [address] Tor Crews MD Hospital discharge follow-up (Primary [...] counseling; Exercise counseling 11/18/2024 Travel 11/18/2024 Refill [facility] [address] [place] [address] Tor Crews MD Type 2 diabetes mellitus without complications ([facility]/HCC) 11/12/2024 Refill [facility] [place] [facility] [place] [address] Brooke Meraz MD Type 2 diabetes mellitus without complication, with long-term current use of insulin ([facility]) 11/11/2024 Telephone [facility] [address] [facility] [place] [address] Tor Crews MD Chart Prep 10/26/2024 Patient Outreach [facility] [address] [facility] [place] [address] Tor Crews MD Transition Of Care (Tcm) (HDF- scheduled and SDOH screening completed on 03/23/2024) 10/26/2024 Telephone [facility] [address] [place] [phone] Tor Crews MD Hospital Follow-up 10/21/2024 Orders Only [facility] External Provider, [facility] 10/20/2024 Refill [facility] [address] [place] [address] Tor Crews MD 10/18/2024 Refill [facility] [address] [place] [phone] Tor Crews MD 10/16/2024 Orders Only GENERIC EXTERNAL DATA DEPARTMENT Provider, Generic External Data 10/15/2024 Orders Only [address] [address] Arcelia Watkins ANP 10/15/2024 Refill [facility] [address] [place] [address] Tor Crews MD Hypertriglyceridemia 10/14/2024 9:40 AM EST Office Visit [facility] [address] [address] Michelle Sosa MD Viral URI (Primary Dx); Mild intermittent asthma with acute exacerbation; Laceration of left ring finger without foreign body without damage to nail, initial encounter; Laceration of left index finger w/o foreign body w/o damage to nail, initial encounter 10/07/2024 9:20 AM EST [facility] [address] [address] Adebayo Baker MD Arthritis of right knee (Primary Dx) 10/07/2024 Telephone [facility] [address] [place] [phone] Tor Crews MD Nurse Triage from Last [...] Description 01/20/2025 11:00 AM EDT Office Visit [facility] [address] [place] [address] Kristen Perez 02/10/2025 1:00 PM EDT Office Visit [facility] [address] [place] [address] Tor Crews MD [address] [place] [address] 06/01/2025 10:00 AM EDT Office Visit [facility] [address] [place] [address] Kristen Perez Health Maintenance Due Date Last [...] disease, with long-term current use of insulin ([facility]) POCT GLUCOSE Routine 12/07/2024 11:15 AM EST Type 2 diabetes mellitus with stage 3b chronic kidney disease, with long-term current use of insulin ([facility]) COMPREHENSIVE [...] POCT Glucose (12/07/2024 11:15 AM EST) Pathologist [facility] Glucose Blood, POC 206(A) 60 - 200 mg/dL QC Media Lot # [id number] Lot# Expiration Date Blood Capillary blood specimen / Unknown 12/07/2024 11:15 AM EST Tor Bañuelos MD POINT OF CARE TEST EN TER/EDIT ORDERABLES Final Result * Vitamin D, 25-Hydroxy, Total, Immunoassay (11/23/2024 10:37 AM EST) Pathologist [facility] Vitamin D 25-OH Total 31.5 >30 ng/mL [facility] Comment:Health Based Referen ce Values*< 20 ng/mL [id number] ng/mL Insufficient> 30 ng/mL Sufficient*Rosa TIAN. N [...] Provider LAB BLOOD ORDERAB LES Final Result [facility] [address] [place] [address] [phone] * (ABNORMAL) Creatinine, Serum (11/23/2024 10:37 AM EST) Pathologist [facility] Creatinine, Serum 1.56(H) 0.5 - 1.4 mg/dL [facility] Estimated Glomerular Filt Rate 47 [facility] Comment:Chronic Kidney Disea se: Estimated GFR < 60 mL/min/1.94x1Wokdja Kidney Disease: Estimated GFR < 15 mL/min/1.73m2 11/23/2024 10:3 7 AM EST 11/23/2024 10:37 AM EST us Generic External Data Provider LAB BLOOD ORDERAB LES Final Result [facility] [address] [place] [address] [phone] * (ABNORMAL) CBC auto differential (11/23/2024 10:37 AM EST) Only the most recent of2 resultswithin the time period is included. Pathologist [facility] White Blood Count 7.3 4.8 - 10.8 X10*3/uL [facility] Red Blood Count 5.08 4.60 - 5.80 X10*6/uL [facility] Hemoglobin 14.5 14.0 - 18.0 g/dl [facility] Hematocrit 42.0 42.0 - 52.0 % [facility] Mean Corpuscular Volume 82.7 80.0 - 98.0 fL [facility] Mean Corpuscular Hemoglobin 28.5 27.0 - 33.0 pg [facility] Mean Corpuscular HGB Conc 34.5 31.0 - 36.0 g/dl [facility] Red Cell Distribution Width 13.1 11.0 - 16.0 % [facility] Platelet Count 231 160 - 400 X10*3/uL [facility] Mean Platelet Volume 10.4 9.4 - 12.4 fL [facility] Neutrophils Percent Auto 70.9 45 - 73 % [facility] Imm Gran Pct Auto 0.8(H) 0.0 - 0.4 % [facility] Lymphocytes Percent Auto 20.7 20 - 40 % [facility] Monocytes Percent Auto 5.8 2 - 11 % [facility] Eosinophils Percent Auto 1.5 0 - 4 % [facility] Basophils Percent Auto 0.3 0 - 2 % [facility] NRBC Pct Auto 0.0 0.0 - 0.2 /100WBC [facility] Neutrophils Absolute Auto 5.2 2.0 - 8.3 x10*3/uL [facility] Imm Gran Abs Auto 0.06(H) 0.00 - 0.03 X10*3/uL [facility] Lymphocytes Absolute Auto 1.5 1.2 - 4.9 X10*3/uL [facility] Monocytes Absolute Auto 0.4 0.1 - 1.2 X10*3/uL [facility] Eosinophils Absolute Auto 0.1 0.0 - 0.4 X10*3/uL [facility] Basophils Absolute Auto 0.0 0.0 - 0.2 X10*3/uL [facility] NRBC Abs Auto 0.000 0.0 - 0.012 X10*3/uL [facility] 11/23/2024 10:3 7 AM EST 11/23/2024 10:37 AM EST us Generic External Data Provider LAB BLOOD ORDERAB LES Final Result [facility] [address] [place] [phone] * (ABNORMAL) BUN (Blood Urea Nitrogen) (11/23/2024 10:37 AM EST) Urea Nitrogen (BUN) 17(H) 9 - 16 mg/dL [facility] 11/23/2024 10:3 7 AM EST 11/23/2024 10:37 AM EST Generic External Data Provider LAB BLOOD ORDERAB LES Final Result Performing Organization Address [facility] Co de Phone Number [facility] [address] [place] [phone] * PTH, Intact Without Calcium (11/23/2024 10:37 AM EST) Parathyroid Hormone, Intact 18.6 8.7 - 77.1 pg/mL [facility] 11/23/2024 10:3 7 AM EST 11/23/2024 10:37 AM EST Generic External Data Provider LAB BLOOD ORDERAB LES Final Result Performing Organization Address [facility] Phone Number [facility] [address] [place] [phone] * (ABNORMAL) Calcium (11/23/2024 10:37 AM EST) Calcium 10.3(H) 8.4 - 10.2 mg/dL [facility] 11/23/2024 10:3 7 AM EST 11/23/2024 10:37 AM EST Generic External Data Provider LAB BLOOD ORDERAB LES Final Result Performing Organization Address [facility] de Phone Number [facility] [address] [place] [phone] * (ABNORMAL) Electrolyte Panel (11/23/2024 10:37 AM EST) Sodium 140 135 - 145 mmol/L [facility] Potassium 4.3 3.3 - 5.1 mmol/L [facility] Chloride 110(H) 96 - 108 mmol/L [facility] Carbon Dioxide 24 22 - 29 mmol/L [facility] Anion Gap 10(L) 12 - 20 [facility] 11/23/2024 10:3 7 AM EST 11/23/2024 10:37 AM EST us Generic External Data Provider LAB BLOOD ORDERAB LES Final Result [facility] [address] [place] [address] [phone] * XR Chest 2 Views (10/23/2024 3:13 PM EST) Only the most recent of2 resultswithin the time period is included. Anatomical Region Laterality Modality Chest Radiographic Fabiana ging 10/23/2024 3:13 PM EST Narrative 10/23/2024 3:14 PM EST ? [facility] ?[address] ?[place] [address] ?XRay Report ? Signed ? Patient: Godienz Godinez,Ian ?MR#: [id number] ?? [id number] ? : 1970 ?Acct:[id number] ? Age/Sex: 54 / M ?ADM Date: 10/21/24 ? Loc: HO.S3 ?346-1 ? Attending Dr: Nic Avery DO ? Ordering Physician: Nic Avery DO ?? Date of Service: 10/23/24 ?? Procedure(s): XR chest 2V ?? Accession Number(s): [id number] ? cc: Tor Villela MD; Nic Avery [...] DD/ 1513 ? TD/TT: 10/23/24 1513 ? Paint Crew Supervisor: ? Procedure Note Jessy, Bailey - 10/23/2024 [facility] [address] [place] [address] XRay Report Signed Patient: Ian HernandezMR#: [id number] : 1970Acct:[id number] Age/Sex: 54 / MADM Date: 10/21/24 Loc: HO.S3 346-[address]: Nic Avery DO Ordering Physician: Nic Avery DO Date of Service: 10/23/24 Procedure(s): XR chest 2V Accession Number(s): [id number] cc: Tor Villela MD; Nic Avery DO [...] 10/23/24 1514 DD/ 1513 TD/TT: 10/23/24 1513 Paint Crew Supervisor: [facility] External Provider IMG XR PROCEDURES Edited Result - Final * (ABNORMAL) Glucose, Whole Blood (10/16/2024 1:10 PM EST) [facility] Glucose, Whole Blood 340(H) 60 - 115 mg/dL [facility] Comment:METER #: [id number] 10/16/2024 1:10 PM EST 10/16/2024 1:15 PM EST Generic External Data Provider LAB BLOOD ORDERAB LES Final Result [facility] [address] [place] [address] [phone] * High Sensitivity Troponin I (10/16/2024 12:21 PM EST) [facility] TROPONIN I HIGH SENSITIVITY 5.1 <3.5 - 35.0 ng/L [facility] Comment:The [place] high sens itivity Troponin-I results should beused in conjunction with other diagnostic information suchas ECG, clinical observations and information, and patientsymptoms to aid in the diagnosis of SD. 10/16/2024 12:2 1 PM EST 10/16/2024 12:24 PM EST Generic External Data Provider LAB BLOOD ORDERAB LES Final Result Performing Organization Address [facility]/ZIP Co de Phone Number [facility] [address] [place] [phone] * SARS-CoV-2 RNA, Influenza A/B, and RSV RNA, Ql NAAT (10/16/2024 12:21 PM EST) [facility] Influenza A PCR NEGATIVE Negative [facility] Influenza B PCR NEGATIVE Negative [facility] Resp Syncy Virus RNA Qual PCR NEGATIVE Negative [facility] SARS COV2 PCR NEGATIVE Negative [facility] Comment:All test results mus t [...] use by authorized laboratories.Testing performed on the [employer] GeneXpert utilizingreal-time RT-PCR.All SARS CoV2 and positive influenza A/B results arereported to [facility]. 10/16/2024 12:2 1 PM EST 10/16/2024 12:24 PM EST Generic External Data Provider LAB MICROBIOLOGY - GENERAL ORDERABLES Final Result Performing Organization Address [facility]/ZIP Co de Phone Number [facility] [address] [place] [phone] * Hepatic Function Panel (10/16/2024 12:21 PM EST) Bilirubin, Total 0.3 0.0 - 1.0 mg/dL [facility] Bilirubin, Direct 0.1 0.0 - 0.5 mg/dL [facility] Aspartate Amino Transferase 19 5 - 37 U/L [facility] Alanine Aminotransferase 23 0 - 40 U/L [facility] Total Protein 7.1 6.5 - 8.0 g/dL [facility] Albumin Level 4.0 3.5 - 5.0 g/dL [facility] Alkaline Phosphatase 73 39 - 117 U/L [facility] 10/16/2024 12:2 1 PM EST 10/16/2024 12:24 PM EST us Generic External Data Provider LAB BLOOD ORDERAB LES Final Result Performing Organization Address City/State/[facility] Co de Phone Number [facility] [address] [place] [phone] * (ABNORMAL) Basic Metabolic Panel (10/16/2024 12:21 PM EST) Pathologist [facility] Sodium 137 135 - 145 mmol/L [facility] Potassium 3.8 3.3 - 5.1 mmol/L [facility] Chloride 107 96 - 108 mmol/L [facility] Carbon Dioxide 20(L) 22 - 29 mmol/L [facility] Anion Gap 14 12 - 20 [facility] Urea Nitrogen (BUN) 30(H) 9 - 16 mg/dL [facility] Creatinine, Serum 1.65(H) 0.5 - 1.4 mg/dL [facility] Creatinine Clr Calc Pharmacy 55.6 [facility] Comment:eGFR (calculated fro m the MDRD study equation) and eCrCl(calculated from the Cockcroft-Gault equation) are based ondifferent parameters and may not yield comparable results.If eCrCl result is absurd, please check patient'sheight/weight. Estimated Glomerular Filt Rate 44 [facility] Comment:Chronic Kidney Disea se: Estimated GFR < 60 mL/min/1.09b8Unlenn Kidney Disease: Estimated GFR < 15 mL/min/1.73m2 Glucose 339(H) 60 - 115 mg/dL [facility] Calcium 8.8 8.4 - 10.2 mg/dL [facility] 10/16/2024 12:2 1 PM EST 10/16/2024 12:24 PM EST us Generic External Data Provider LAB BLOOD ORDERAB LES Final Result [facility] [address] [place], [place] [phone] * Laceration Repair (10/14/2024 10:20 AM EST) Narrative Michelle Sosa MD - 10/14/2024 10:20 AM EST Michelle Sosa MD ? 10/14/2024 11:08 AM Laceration Repair Date/Time: 10/14/2024 10:20 AM Performed by: Michelle Sosa MD Authorized by: Michelle Sosa MD ?? Consent: ??Consent obtained: ??Verbal ??Consent given by: ??Patient ??Risks, benefits, and alternatives were discussed: yes ?Risks discussed: ??Pain ??Alternatives discussed: ??No treatment [place] protocol: ??Procedure explained and questions answered to [...] NOW Rapid Molecular) (10/14/2024 9:52 AM EST) [facility] Influenza B Negative Negative, Indeterminate [facility] Swab 10/14/2024 9:52 AM EST Michelle Sosa MD POINT OF CARE TEST ENTER/E DIT ORDERABLES Final Result Performing Organization Address [facility] Co de Phone Number [facility] [address] [place] [phone] * Influenza A (ID NOW Rapid Molecular) (10/14/2024 9:52 AM EST) [facility] Influenza A Negative Negative, Indeterminate [facility] Swab 10/14/2024 9:52 AM EST Michelle Sosa MD POINT OF CARE TEST ENTER/E DIT ORDERABLES Final Result Performing Organization Address [facility] Co de Phone Number [facility] [address] [place] [phone] * POCT Rapid COVID Ag (10/14/2024 9:52 AM EST) Pathologist [facility] Rapid COVID Ag Negative [facility] Swab 10/14/2024 9:52 AM EST Michelle Sosa MD POINT OF CARE TEST ENTER/E DIT ORDERABLES Final Result Performing Organization Address [facility] Co de Phone Number [facility] [address] [place] [phone] * (ABNORMAL) Lipid Panel with Reflex to Direct LDL (09/09/2023 7:57 AM EST) [facility] Triglycerides 448(H) <150 mg/dL [facility] Comment:Desirable Triglyceri de: less than 150 mg/dLBorderline High Triglyceride 150-199 mg/dLHigh Triglyceride: 200-499 mg/dLVery High Triglyceride: greater than or equal to 5OO mg/dL Cholesterol 204(H) <200 mg/dL [facility] Comment:Desirable Cholestero l: less than 200 mg/dLBorderline High Cholesterol: 200-239 mg/dLHigh Cholesterol: greater than 239 mg/dL LDL Cholesterol Calculated TNP <100 mg/dL [facility] Comment:Unable to calculate the LDL. The formula of Friedwald,Shepherd, and Pearl is only valid if the triglycerides areless than 400 mg/dl. HDL Cholesterol 34(L) >40 mg/dL [facility] Comment:Desirable HDL: great er than 40 mg/dL Note: This HDL assay may give artificially low results in patients with liver disease. Blood 09/09/2023 7:57 AM EST 09/09/2023 7:57 AM EST us Tor Bañuelos MD LAB BLOOD ORDERABLES Final Result [facility] [address] [place] [phone] * Colonoscopy (01/25/2022) Colonoscopy Normal Normal 01/25/2022 Narrative Radha Alves - 01/25/2022 2:56 PM EDT Recommended 10 year follow up ( see scanned notes) us Historical Provider HEALTH MAINTENANCE Edited Result - Final from Last 3 Months or Most Recently Relevant to Health Maintenance Insurance [facility] [id number] D[address] [facility] [place] [address] [place] [address] Care Teams Furnace Worker Relationship Specialty Start Date End Date Tor Crews MD [address] [place] [address] [place] [address] PCP - General Internal Medicine 07/21/14
--- OUTSIDE RECORDS SUMMARY | 2024-12-28 10:07 | XMS_ITS | Encounter Summary ---
Author Organization [employer] Address [address] 7t [place] [address] Care Team Providers Care Smoking Pipe Repairer Name Role Phone Tor Crews MD Primary Care Provide r Encounter Details Date Type Department Care Team ([facility] st Contact Info) Description 10/15/2024 Orders Only [facility] [address] [place], [place] [phone] Arcelia Watkins ANP [address] [place], [place] [phone] Social History Tobacco Use Types Packs/Day Years [...] Description 01/20/2025 11:00 AM EDT Office Visit [facility] ADULT DENTAL [address] [place] [address] Kristen Perez 02/10/2025 1:00 PM EDT Office Visit [facility] [address] [place] [address] Tor Crews MD [address] [place] [address] 06/01/2025 10:00 AM EDT Office Visit [facility] ADULT DENTAL [address] [place] [address] Kristen Perez documented as of this encounter Visit Diagnoses Not on filedocumented in this encounter Additional Health Concerns Assessment Noted Time PHQ-9 Depression Total Score: 4 03/04/20 23 2:58 PM EDT documented as of this encounter Care Teams Smoking Pipe Repairer Relationship Specialty Start Date End Date Tor Crews MD [address] [place] [address] PCP - General Internal Medicine 07/21/14 documented as of this encounter
--- OUTSIDE RECORDS SUMMARY | 2024-12-28 10:07 | XMS_ITS | Encounter Summary ---
Author Organization [employer] Address [address] [facility] [address] 7t [place] [address] Care Team Providers Care Photographic Spotter Name Role Phone Tor Crews MD Primary Care Provide r Reason for Visit * Reason Comments Med Refill Encounter Details Date Type Department Care Team ([facility] st Contact Info) Description 08/07/2023 Refill [facility] [address] [place], [place] [phone] Tor Crews MD [address] [place], [place] [phone] Hypertriglyceridemia Social History Tobacco Use Types Packs/Day [...] Description 01/20/2025 11:00 AM EDT Office Visit [facility] ADULT DENTAL [address] [place] [address] Kristen Perez 02/10/2025 1:00 PM EDT Office Visit [facility] [address] [place] [address] Tor Crews MD [address] [place] [address] 06/01/2025 10:00 AM EDT Office Visit [facility] ADULT DENTAL [address] [place] [address] Kristen Perez documented as of this encounter Visit Diagnoses Diagnosis Hypertriglyceridemia Pure hyperglyceridemia documented in this encounter Additional Health Concerns Assessment Noted Time PHQ-9 Depression Total Score: 4 03/04/20 23 2:58 PM EDT documented as of this encounter Care Teams Photographic Spotter Relationship Specialty Start Date End Date Tor Crews MD [address] [place] [address] PCP - General Internal Medicine 07/21/14 documented as of this encounter
--- OUTSIDE RECORDS SUMMARY | 2024-12-28 10:07 | XMS_ITS | Encounter Summary ---
Author Organization [employer] Address [address] [facility] 7t [place] [address] Care Team Providers Care Baffle Mounter Name Role Phone Tor Crews MD Primary Care Provide r Encounter Details Date Type Department Care Team (Latest Contact Info) Description 04/26/2021 Abstract [facility] CONVERSIONS Dental, Provider, DDS Social History [...] Description 01/20/2025 11:00 AM EDT Office Visit [facility] ADULT DENTAL [address] [place] [address] Kristen Perez 02/10/2025 1:00 PM EDT Office Visit [facility] MEDICINE [address] [place] [address] Tor Crews MD [address] [place] [address] 06/01/2025 10:00 AM EDT Office Visit [facility] ADULT DENTAL [address] [place] [address] Kristen Perez documented as of this encounter Visit Diagnoses Not on filedocumented in this encounter Care Teams Baffle Mounter Relationship Specialty Start Date End Date Tor Crews MD [address] [place] [address] PCP - General Internal Medicine 07/21/14 documented as of this encounter
--- OUTSIDE RECORDS SUMMARY | 2024-12-28 10:07 | XMS_ITS | Encounter Summary ---
Author Organization [employer] Address [address] [facility] [address] [address] 7t [place] [address] Care Team Providers Care Last Ironer Name Role Phone Tor Crews MD Primary Care Provide r Reason for Visit * Reason Comments Med Refill Encounter Details Date Type Department Care Team (Late st Contact Info) Description 12/19/2023 Refill [facility] MED & PEDS [address] [place], [place] [phone] Sinai Sesay MD [address] [place] [address] Social History Tobacco Use Types Packs/Day Years [...] Description 01/20/2025 11:00 AM EDT Office Visit [facility] ADULT DENTAL [address] [place] [address] Kristen Perez 02/10/2025 1:00 PM EDT Office Visit [facility]IC[facility] [address] [place] [phone] Tor Crews MD [address] [place] [address] 06/01/2025 10:00 AM EDT Office Visit [facility] ADULT DENTAL [address] [place] [address] Kristen Perez documented as of this encounter Visit Diagnoses Not on filedocumented in this encounter Additional Health Concerns Assessment Noted Time PHQ-9 Depression Total Score: 4 03/04/20 23 2:58 PM EDT documented as of this encounter Care Teams Last Ironer Relationship Specialty Start Date End Date Tor Crews MD [address] [place] [address] PCP - General Internal Medicine 07/21/14 documented as of this encounter
--- OUTSIDE RECORDS SUMMARY | 2024-12-28 10:07 | XMS_ITS | Encounter Summary ---
Author Organization [employer] Address [address] [facility] [address] 7t [place] [address] Care Team Providers Care Cook Mayonnaise Name Role Phone Tor Crews MD Primary Care Provide r Reason for Visit * Reason Onset Date Comments triage 01/13/2023 Encounter Details Date Type Department Care Team ([facility] st Contact Info) Description 01/13/2023 Telephone [facility] [address] [place], [place] [phone] Tor Crews MD [address] [place], [place] [phone] triage Social History Tobacco Use Types Packs/Day [...] 01/13/2023 1:24 PM EDT Triage call with [employer] Valve Grinder [place] [id number] Pt reports upper abdominal pain since last [...] light yellow/clear. Advised Pt to come to [facility] today and Pt agreed. Home care reviewed. [...] Description 01/20/2025 11:00 AM EDT Office Visit [facility] ADULT DENTAL [address] [place] [address] Kristen Perez 02/10/2025 1:00 PM EDT Office Visit [facility] [address] [place] [address] Tor Crews MD [address] [place] [address] 06/01/2025 10:00 AM EDT Office Visit [facility] ADULT DENTAL [address] [place] [address] Kristen Perez documented as of this encounter Visit Diagnoses Not on filedocumented in this encounter Care Teams Cook Mayonnaise Relationship Specialty Start Date End Date Tor Crews MD [address] [place] [address] PCP - General Internal Medicine 07/21/14 documented as of this encounter
--- OUTSIDE RECORDS SUMMARY | 2024-12-28 10:07 | XMS_ITS | Encounter Summary ---
Author Organization [employer] Address [address] [facility] 7t [place] [address] Care Team Providers Care Technical Services Representative Name Role Phone Tor Crews MD Primary Care Provide r Reason for Visit * Reason Onset Date Comments Hospital Follow-up 10/26/2024 Encounter Details Date Type Department Care Team ([facility] st Contact Info) Description 10/26/2024 Telephone [facility] MED[facility]INE [address] [place], [place] [phone] Tor Crews MD [address] [place], [place] [phone] Hospital Follow-up Social History Tobacco Use Types [...] from pt requesting a HDF appt. Hospital: [facility] Date of admission: 10/20/2024 Discharge date: 10/25/2024 Diagnosed: Asthma *Send message to [facility] Co[facility] documented in this encounter Plan of Treatment Upcoming Encounters Date Type Department Care Team (Late st Contact Info) Description 01/20/2025 11:00 AM EDT Office Visit [facility] ADULT DENTAL [address] [place] [address] Kristen Perez 02/10/2025 1:00 PM EDT Office Visit [facility] MEDICINE [address] [place] [address] Tor Crews MD [address] [place] [address] 06/01/2025 10:00 AM EDT Office Visit [facility] ADULT DENTAL [address] [place] [address] Kristen Perez documented as of this encounter Visit Diagnoses Not on filedocumented in this encounter Additional Health Concerns Assessment Noted Time PHQ-9 Depression Total Score: 4 03/04/20 23 2:58 PM EDT documented as of this encounter Care Teams Technical Services Representative Relationship Specialty Start Date End Date Tor Crews MD [address] [place] [address] PCP - General Internal Medicine 07/21/14 documented as of this encounter
--- OUTSIDE RECORDS SUMMARY | 2024-12-28 10:07 | XMS_ITS | Encounter Summary ---
Author Organization [employer] Address [address] [facility] 7t [place] [address] Care Team Providers Care Aircraft Engine Installer Name Role Phone Tor Crews MD Primary Care Provide r Reason for Visit * Reason Comments Med Refill Encounter Details Date Type Department Care Team (Late st Contact Info) Description 05/23/2023 Refill [facility] [address] [place] [address] [phone] Tor Crews MD [address] [place], [place] [phone] Acute pain of right knee Social History [...] Description 01/20/2025 11:00 AM EDT Office Visit [facility] ADULT DENTAL [address] [place], [place] [phone] Kristen Perez 02/10/2025 1:00 PM EDT Office Visit [facility] MED[facility] [address] [place] [address] [facility]s MD [address] [facility] [place] [address] 06/01/2025 10:00 AM EDT Office Visit [facility] [address] [facility] [place] [address] Kristen Perez documented as of this encounter Visit Diagnoses Diagnosis Acute pain of right knee documented in this encounter Additional Health Concerns Assessment Noted Time PHQ-9 Depression Total Score: 4 03/04/20 23 2:58 PM EDT documented as of this encounter Care Teams Aircraft Engine Installer Relationship Specialty Start Date End Date Tor Crews MD [address] [facility] [place] [address] PCP - General Internal Medicine 07/21/14 documented as of this encounter
--- OUTSIDE RECORDS SUMMARY | 2024-12-28 10:07 | XMS_ITS | Clinical Summary ---
Author Organization [facility] Address [address] [place] [address] Phone Care Team Providers Care Macaroni Press Operator Name Role Phone Tor Villela MD Primary Care Provi pepe Social History Tobacco Use Types Packs/Day Years Used Date Smoking Tobacco: Never Assessed Sex and Gender Information Value Date Recorded Sex Assigned at Not on file Legal Sex Male 4:33 AM EST Gender Identity Not on file Sexual Orientation Not on file Plan of Treatment Upcoming Encounters Date Type Department Care Team ([facility] Contact Info) Description 02/01/2025 9:45 AM EDT Consult Orthopedic Surgery - [place] [phone] [phone] Tod Little, DPM [address] [address] Health Maintenance Due Date Last Done Comments [...] complete this topic Insurance [place] - [place] [facility] MEDICARE Member Subscriber Plan / Payer (Ef fective 2019-Present) Name:Ian Godinez Relation to Subscriber:Self Name:Ian Godinez Payer ID:[id number] Group ID:[id number] Type:Not on file Address: [address] [place] [address] Care Teams Macaroni Press Operator Relationship Specialty Start Date End Date Tor Villela MD [address] [place] [address] [place] [address] PCP - General 07/29/24
--- OUTSIDE RECORDS SUMMARY | 2024-12-28 10:07 | XMS_ITS | Encounter Summary ---
Author Organization [employer] Address [address] [facility] 7t [place] [address] Care Team Providers Care Doughmaker Name Role Phone Tor Crews MD Primary Care Provide r Encounter Details Date Type Department Care Team (Late st Contact Info) Description 10/30/2022 Orders Only [facility] MED & PEDS [address] [place] [address] Mahsa Bustillos LPN Social History Tobacco Use [...] Description 01/20/2025 11:00 AM EDT Office Visit [facility] ADULT DENTAL [address] [place] [address] Kristen Perez 02/10/2025 1:00 PM EDT Office Visit [facility] MED[facility]INE [address] [place] [address] Tor Crwes MD [address] [place] [address] 06/01/2025 10:00 AM EDT Office Visit [facility] ADULT DENTAL [address] [place] [address] Kristen Perez documented as of this encounter Visit Diagnoses Not on filedocumented in this encounter Care Teams Doughmaker Relationship Specialty Start Date End Date Tor Crews MD [address] [place] [address] PCP - General Internal Medicine 07/21/14 documented as of this encounter
--- OUTSIDE RECORDS SUMMARY | 2024-12-28 10:07 | XMS_ITS | Encounter Summary ---
Author Organization [employer] Address [address] [facility] [address] 7t [place] [address] Care Team Providers Care Warp Knitter Helper Name Role Phone Tor Crews MD Primary Care Provide r Encounter Details Date Type Department Care Team (Late st Contact Info) Description 12/17/2022 Orders Only [facility] MEDICINE [address] [place] [address] Ally Rodríguez LPN Social History Tobacco Use [...] Description 01/20/2025 11:00 AM EDT Office Visit [facility] ADULT DENTAL [address] [place] [address] Kristen Perez 02/10/2025 1:00 PM EDT Office Visit [facility] MEDICINE [address] [place] [address] Tor Crews MD [address] [place] [address] 06/01/2025 10:00 AM EDT Office Visit [facility] ADULT DENTAL [address] [place] [address] Kristen Perez documented as of this encounter Visit Diagnoses Not on filedocumented in this encounter Care Teams Warp Knitter Helper Relationship Specialty Start Date End Date Tor Crews MD [address] [place] [address] PCP - General Internal Medicine 07/21/14 documented as of this encounter
--- OUTSIDE RECORDS SUMMARY | 2024-12-28 10:07 | XMS_ITS | Encounter Summary ---
Author Organization [email or web address] Address [address] [facility] 7t [place] [address] Care Team Providers Care Cfo Name Role Phone Tor Crews MD Primary Care Provide r Reason for Visit * Reason Comments Med Refill Encounter Details Date Type Department Care Team ([facility] st Contact Info) Description 11/18/2024 Refill [facility] MEDICINE [address] [place], [place] [phone] Tor Crews MD [address] [place], [place] [phone] Type 2 diabetes mellitus without complications (CMS/HCC) [...] Description 01/20/2025 11:00 AM EDT Office Visit [facility] ADULT DENTAL [address] [place] [address] Kristen Perez 02/10/2025 1:00 PM EDT Office Visit [facility] MED[facility]INE [address] [place] [address] Tor Crews MD [address] [place] [address] 06/01/2025 10:00 AM EDT Office Visit [facility] ADULT DENTAL [address] [place] [address] Kristen Perez documented as of this encounter Visit Diagnoses Diagnosis Type 2 diabetes mellitus without complications (CMS/[facility]) documented in this encounter Additional Health Concerns Assessment Noted Time PHQ-9 Depression Total Score: 4 03/04/20 23 2:58 PM EDT documented as of this encounter Care Teams Cfo Relationship Specialty Start Date End Date Tor Crews MD [address] [place] [address] PCP - General Internal Medicine 07/21/14 documented as of this encounter
--- OUTSIDE RECORDS SUMMARY | 2024-12-28 10:08 | XMS_ITS | Encounter Summary ---
Author Organization [employer] Address [address] [facility] [address] 7t [place] [address] Care Team Providers Care Packaging Inspector Name Role Phone Tor Crews MD Primary Care Provide r Reason for Visit * Reason Comments Med Refill Encounter Details Date Type Department Care Team ([facility] st Contact Info) Description 12/19/2024 Refill [facility] [address] [place], [place] [phone] Tor Crews MD [address] [place], [place] [phone] Seasonal allergies Social History Tobacco Use Types [...] Office Visit [facility] ADULT DENTAL [address] [place] [address] Kristen Perez 02/10/2025 1:00 PM EDT Office Visit [facility] MEDICINE [address] [place] [address] Tor Crews MD [address] [place] [address] 06/01/2025 10:00 AM EDT Office Visit [facility] ADULT DENTAL [address] [place] [address] Kristen Perez documented as of this encounter Visit Diagnoses Diagnosis Seasonal allergies Allergic rhinitis, cause unspecified documented in this encounter Additional Health Concerns Assessment Noted Time PHQ-9 Depression Total Score: 4 03/04/20 23 2:58 PM EDT documented as of this encounter Care Teams Packaging Inspector Relationship Specialty Start Date End Date Tor Crews MD [address] [place] [address] PCP - General Internal Medicine 07/21/14 documented as of this encounter
--- OUTSIDE RECORDS SUMMARY | 2024-12-28 10:08 | XMS_ITS | Encounter Summary ---
Author Organization [employer] Address [address] [facility] [address] 7[address] [place] [address] Care Team Providers Care Storeroom Keeper Name Role Phone Tor Crews MD Primary Care Provide r Encounter Details Date Type Department Care Team (Late st Contact Info) Description 02/27/2023 Abstract [facility] MEDICINE [address] [place] [phone] Tor Crews MD [address] [place], [place] [phone] Social History Tobacco Use Types Packs/Day Years [...] 01/20/2025 11:00 AM EDT Office Visit [facility] ADULT DENTAL [address] [place] [address] [phone] Kristen Perez 02/10/2025 1:00 PM EDT Office Visit [facility] MEDICINE 230 [place], [place] [phone] Tor Crews MD [address] [place] [address] 06/01/2025 10:00 AM EDT Office Visit [facility] ADULT DENTAL [address] [place] [address] Kristen Perez documented as of this encounter Procedures Procedure Name Priority Date/Time Associated Diagnosis Comments HM COLONOSCOPY Routine 01/25/2022 documented in this encounter Results * Hm Colonoscopy (01/25/2022) Colonoscopy Normal Normal 01/25/2022 Narrative Radha Alves - 01/25/2022 2:56 PM EDT Recommended 10 year follow up ( see scanned notes) Historical Provider [facility] Edited Result - Final documented in this encounter Visit Diagnoses Not on filedocumented in this encounter Care Teams Storeroom Keeper Relationship Specialty Start Date End Date Tor Crews MD [place] [phone] PCP - General Internal Medicine 07/21/14 documented as of this encounter
--- OUTSIDE RECORDS SUMMARY | 2024-12-28 10:08 | XMS_ITS | Encounter Summary ---
Author Organization [employer] Address [address] [facility] 7t [place] [address] Care Team Providers Care Format Proofreader Name Role Phone Tor Crews MD Primary Care Provide r Reason for Visit * Reason Onset Date Comments FYI 12/01/2024 Encounter Details Date Type Department Care Team ([facility] st Contact Info) Description 12/01/2024 Telephone [facility] MEDICINE [address] [place], [place] [phone] Tor Crews MD 230 [place], [place] [phone] FYI Social History Tobacco Use Types Packs/Day [...] Description 01/20/2025 11:00 AM EDT Office Visit [facility] ADULT DENTAL 230 [place] [address] Kristen Perez 02/10/2025 1:00 PM EDT Office Visit [facility] MEDICINE [address] [place] [address] Tor Crews MD 230 [place] [address] 06/01/2025 10:00 AM EDT Office Visit [facility] ADULT DENTAL [address] [place] [address] Kristen Perez documented as of this encounter Visit Diagnoses Not on filedocumented in this encounter Additional Health Concerns Assessment Noted Time PHQ-9 Depression Total Score: 4 03/04/20 23 2:58 PM EDT documented as of this encounter Care Teams Format Proofreader Relationship Specialty Start Date End Date Tor Crews MD 230 [place] [address] PCP - General Internal Medicine 07/21/14 documented as of this encounter
--- OUTSIDE RECORDS SUMMARY | 2024-12-28 10:08 | XMS_ITS | Encounter Summary ---
Author Organization [facility] Address [address] [facility] [address] [place] [address] Phone Care Team Providers Care Formula Weigher Name Role Phone Tor Guzman MD Primary Care Provider Unarohit ailable Encounter Details Date Type Department Care Team (Late st Contact Info) Description 11/10/2023 Office Communication [facility] [address] [place] [place] [address] Ko Gorman MD [address] [facility] [address] [place] [address] Social History Tobacco Use Types [...] He stated he is not coming to [facility] * Telephone Encounter - Ko Gorman MD - 11/10/2023 8:42 PM EST Cathy appt with me in 4-6 wks documented in this encounter Plan of Treatment Not on file documented as of this encounter Visit Diagnoses Not on filedocumented in this encounter Care Teams Formula Weigher Relationship Specialty Start Date End Date Tor Guzman MD PCP - General 11/06/20 documented as of this encounter
--- OUTSIDE RECORDS SUMMARY | 2024-12-28 10:08 | XMS_ITS | Encounter Summary ---
Author Organization [employer] Address [address] [facility] [facility] [address] 7[address] [place] [address] Care Team Providers Care Psychology Physician Name Role Phone Tor Crews MD Primary [...] Office Visit [facility] ADULT DENTAL [address] [place] [address] Kristen Perez 02/10/2025 1:00 PM EDT Office Visit [facility] MEDICINE [address] [place] [address] Tor Crews MD 230 [place] [address] 06/01/2025 10:00 AM EDT Office Visit [facility] ADULT DENTAL [address] [place] [address] Kristen Perez documented as of this encounter Visit Diagnoses Not on filedocumented in this encounter Additional Health Concerns Assessment Noted Time PHQ-9 Depression Total Score: 4 03/04/20 23 2:58 PM EDT documented as of this encounter Care Teams Psychology Physician Relationship Specialty Start Date End Date Tor Crews MD 230 [place] [address] PCP - General Internal Medicine 07/21/14 documented as of this encounter
--- OUTSIDE RECORDS SUMMARY | 2024-12-28 10:08 | XMS_ITS | Encounter Summary ---
Author Organization [employer] Address [address] 7[address] [place] [address] Care Team Providers Care Account Management Specialist Name Role Phone Tor Crews MD Primary Care Provide r Reason for Visit * Reason Comments Diabetes Encounter Details Date Type Department Care Team ([facility] st Contact Info) Description 12/07/2024 11:15 AM EST Office Visit [facility] MEDICINE 230 [place], [place] [phone] Tor Crews MD 230 [place], [place] [phone] Chronic systolic heart failure (CMS/HCC) (Primary Dx); [...] disease, with long-term current use of insulin ([facility]) Pt here for a f/u Blood glucose log shows BG ranging between 99 296 Hgb A1c 12/07/2024: 8.7 from 9.2 from 9.7 Microalbumin level 12/25/2021 was 5 Eye exam: 01/23/2022 Currently on a regimen of: Lantus 46 units sc qpm, Humalog sliding scale, Jardiance 25 mg, Ozempic 0.5 once a week His Metformin was restarted by Political Reporter in [place] 500 mg po BID once a day [...] titers were negative, HIV (neg 12/2012 at [facility]) , SAMEER (neg 01/03/2013 at [facility] ) , ADRIÁN level was normal. Pt is s/p ICD placement in 2008 ([employer]) Follows at the HF clinic , last seen 07/2022 Dr. Nielson recommended to Continue current neurohormonal modulation with Entresto, Daily weight monitoring and avoidance of salt loading . Continue aggressive blood pressure control.Encouraged to continue to participate in physical activity as tolerated and participate in weight loss program. He has done extremely well with medical management despite no MEDIA PRODUCTION MANAGER. He was advised to continue to follow at [facility] for heart transplant evaluation.on annual basis. Last seen 07/14/2024 He was last seen by Dr Nielson 12/01/2024 He is on: Toprol X: 12.5 mg One tablet Daily Entresto 24-26 mg BID And Lasix 40 mg once Daily Had stress test at [facility] 09/14/[address] Rich ECHO 08/05/2024 showed a normal EF improved from previous one. 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 Bonilla his airframe and powerplant mechanic Lab Results Component Value Date GLUCOSE 340 [...] Nephrology, last seen 12/01/2024 Dr. Bonilla his airframe and powerplant mechanic Lab Results Component Value Date GLUCOSE 340 (H) 10/16/2024 NA 140 11/23/2024 K 4.3 11/23/2024 CO2 24 11/23/2024 CL 110 (H) 11/23/2024 BUN 17 (H) 11/23/2024 CREATININE 1.56 (H) 11/23/2024 * Assessment & Plan Note - Tor Bañuelos MD - 12/07/2024 11:25 AM EST Associated Problem(s): Type 2 diabetes mellitus with stage 3b chronic kidney disease, with long-term current use of insulin ([facility]) Pt here for a f/u Blood glucose log shows BG ranging between 99 296 Hgb A1c 12/07/2024: 8.7 from 9.2 from 9.7 Microalbumin level 12/25/2021 was 5 Eye exam: 01/23/2022 Currently on a regimen of: Lantus 46 units sc qpm, Humalog sliding scale, Jardiance 25 mg, Ozempic 0.5 once a week His Metformin was restarted by Political Reporter in [place] 500 mg po BID once a day [...] titers were negative, HIV (neg 12/2012 at [facility]) , SAMEER (neg 01/03/2013 at [facility] ) , ADRIÁN level was normal. Pt is s/p ICD placement in 2008 ([employer]) Follows at the HF clinic , last seen 07/2022 Dr. Nielson recommended to Continue current neurohormonal modulation with Entresto, Daily weight monitoring and avoidance of salt loading . Continue aggressive blood pressure control.Encouraged to continue to participate in physical activity as tolerated and participate in weight loss program. He has done extremely well with medical management despite no MEDIA PRODUCTION MANAGER. He was advised to continue to follow at [facility] for heart transplant evaluation.on annual basis. Last seen 07/14/2024 He was last seen by Dr Nielson 12/01/2024 He is on: Toprol X: 12.5 mg One tablet Daily Entresto 24-26 mg BID And Lasix 40 mg once Daily Had stress test at [facility] 09/14/[address] Rich ECHO 08/05/2024 showed a normal EF improved from previous one. documented in this encounter Plan of Treatment Upcoming Encounters Date Type Department Care Team (Late st Contact Info) Description 01/20/2025 11:00 AM EDT Office Visit [facility] ADULT DENTAL [address] [place] [address] Kristen Perez 02/10/2025 1:00 PM EDT Office Visit [facility] MEDICINE [address] [place] [address] Tor Crews MD 230 [place] [address] 06/01/2025 10:00 AM EDT Office Visit [facility] ADULT DENTAL [address] [place] [address] Kristen Perez documented as of this encounter [...] documented as of this encounter Care Teams Account Management Specialist Relationship Specialty Start Date End Date Tor Crews MD 230 [place] [address] PCP - General Internal Medicine 07/21/14 documented as of this encounter
--- OUTSIDE RECORDS SUMMARY | 2024-12-28 10:08 | XMS_ITS | Encounter Summary ---
Author Organization [employer] Address [address] [facility] [address] 7t [place] [address] Care Team Providers Care Buzzle Buffer Name Role Phone Tor Crews MD Primary Care Provide r Reason for Visit * Reason Comments Routine Cleaning Dental Exam Encounter Details Date Type Department Care Team (Late st Contact Info) Description 11/29/2024 10:00 AM EST Office Visit [facility] ADULT DENTAL [address] [place] [address] Kristen Perez Dental calculus (Primary Dx); Dental [...] t he electric, gas, oil or water Geeks[employer] threatened to shut off services in your [...] Timeout Time: 1016 (Dental Prophy Adult) Location: [facility] Tooth: Maxilla and Mandible Procedure: Exam, X-rays, and Prophylaxis Verified the above with patient, faculty research assistant, and provider. Confirmed via patient's chart, intraorally and by radiographs. Bridge Operator Slip: not applicable Medical Hx: Vitals: Blood pressure [...] patient including brushing technique and flossing. Recommendations: Glady two times daily, modified kendrick technique, Floss daily, Electric toothbrush, Soft bristle toothbrush, Glady Tongue, Anti-sensitivity toothpaste Recall Frequency: 6 mo [...] Timeout Time: 1016 (Dental Prophy Adult) Location: [facility] Tooth: Maxilla and Mandible Procedure: Exam, X-rays, and Prophylaxis Verified the above with patient, faculty research assistant, and provider. Confirmed via patient's chart, intraorally and by radiographs. Bridge Operator Slip: not applicable Chief Complaint Patient presents with Routine Cleaning Dental Exam Medical Hx: Vitals: Blood pressure (!) 148/84. Past Medical History: Diagnosis Date Chronic systolic heart failure (CMS/HCC) Hypertension Ingrowing nail, right great toe 10/06/2017 Mixed hyperlipidemia Type 2 diabetes mellitus with stage 3a chronic kidney disease, with long-term current use of insulin ([facility]) Medications: Outpatient Encounter Medications as of 11/29/2024 [...] 90 tablet 3 Blood Glucose Monitoring Suppl ([employer]) w/Device kit Use to test blood [...] Cancer Risk: Low Risk Oral Hygiene Instructions: Glady two times daily, modified kendrick technique, Floss daily, Soft bristle toothbrush, Glady Tongue Caries Risk Assessment: Low- no risk factor Assessment/Plan SRPs Add tooth upper RPD Patient tolerated procedure well, all questions answered and expressed understanding. Dismissed in good condition. NV: Earline Junior Network Engineer: Kristen Perez Dentist: Socorro Marinelli DDS documented in this encounter Plan of Treatment Upcoming Encounters Date Type Department Care Team (Late st Contact Info) Description 01/20/2025 11:00 AM EDT Office Visit [facility] ADULT DENTAL [address] [place] [address] Kristen Perez 02/10/2025 1:00 PM EDT Office Visit [facility] MEDICINE [address] [place] [phone] Tor Crews MD 230 [place] [address] 06/01/2025 10:00 AM EDT Office Visit [facility] ADULT DENTAL [address] [place] [address] Kristen Perez Scheduled Orders Name Type Priority Associated Diagnoses Orde r Schedule UL UL PERIODONTAL SCALING AND ROOT PLANING - 1 TO 3 TEETH PER QUADRANT Dental Routine 1 [facility]ur[address] [facility] 11/29/2024 LL LL PERIODONTAL SCALING AND ROOT PLANING - 1 TO 3 TEETH PER QUADRANT Dental Routine 1 Occurrences [facility] 11/29/2024 UR UR PERIODONTAL SCALING AND ROOT PLANING - 1 TO 3 TEETH PER QUADRANT Dental Routine 1 Occurrences [facility] 11/29/2024 LR LR PERIODONTAL SCALING AND ROOT PLANING - 1 TO 3 TEETH PER QUADRANT Dental Routine 1 Occurrences [facility] 11/29/2024 documented as of this encounter Procedures [...] documented as of this encounter Care Teams Buzzle Buffer Relationship Specialty Start Date End Date Tor Crews MD [address] [place] [address] PCP - General Internal Medicine 07/21/14 documented as of this encounter
--- OUTSIDE RECORDS SUMMARY | 2024-12-28 10:08 | XMS_ITS | Clinical Summary ---
Author Organization [facility] Address [address] [address] [place] [address] Phone Care Team Providers Care Icer Air Conditioning Name Role Phone Tor Guzman MD Primary [...] to 64 Years) Completed 04/17/[address] [place] [address] [facility] ([id number]) [facility] ([id number]) Care Teams Icer Air Conditioning Relationship Specialty Start Date End Date Tor Guzman MD PCP - General 11/06/20
--- OUTSIDE RECORDS SUMMARY | 2024-12-28 10:08 | XMS_ITS | Encounter Summary ---
Author Organization [employer] Address [address] [facility] 7t [place] [address] Care Team Providers Care Geospatial Information Scientist Name Role Phone Tor Crews MD Primary Care Provide r Reason for Visit * Reason Comments Dentures Impression add tooth # 3 Encounter Details Date Type Department Care Team (Late st Contact Info) Description 12/10/2024 1:30 PM EST Office Visit [facility] ADULT DENTAL [address] [place] [address] Socorro Marinelli DDS [address] [place] [address] Tooth missing (Primary Dx) Social History Tobacco [...] existing tooth to partial - impression) Location: [facility] Tooth: #3 Procedure: Dentures- adding tooth #3 to upper RPD Verified the above with patient, sales support assistant, and provider. Confirmed via patient's chart, intraorally and by radiographs. Plumbing Service Technician: not applicable Chief Complaint Patient presents with [...] #3 to existing upper RPD. Lab used: [facility] Lab Lab Due Date: 12/14/2024 Patient discharged alert, oriented, and in stable condition. NV: Delviery repaired RPD Track Dresser: MILES Leiva Dentist: Socorro Marinelli DDS documented in this encounter Plan of Treatment Upcoming Encounters Date Type Department Care Team (Late st Contact Info) Description 01/20/2025 11:00 AM EDT Office Visit [facility] ADULT DENTAL [address] [place] [address] Kristen Perez 02/10/2025 1:00 PM EDT Office Visit [facility] MEDICINE [address] [place] [address] Tor Crews MD [facility] [place] [address] 06/01/2025 10:00 AM EDT Office Visit [facility] ADULT DENTAL [place] [address] Kristen Perez Scheduled Orders Name Type Priority [...] documented as of this encounter Care Teams Geospatial Information Scientist Relationship Specialty Start Date End Date Tor Crews MD [facility] [place] [address] PCP - General Internal Medicine 07/21/14 documented as of this encounter
--- OUTSIDE RECORDS SUMMARY | 2024-12-28 10:08 | XMS_ITS | Encounter Summary ---
Author Organization [employer] Address [address] [facility] 7t [place] [address] Care Team Providers Care Proof Clerk Name Role Phone Tor Crews MD Primary Care Provide r Reason for Visit * Reason Onset Date Comments Chart Prep 11/29/2024 Encounter Details Date Type Department Care Team ([facility] st Contact Info) Description 11/29/2024 Telephone [facility] MEDICINE [address] [place], [place] [phone] Tor Crews MD 230 [place], [place] [phone] Chart Prep Social History Tobacco Use Types [...] 11:00 AM EDT Office Visit [facility] ADULT DENTAL [address] [place] [address] Kristen Perez 02/10/2025 1:00 PM EDT Office Visit [facility] MEDICINE [address] [place] [address] Tor Crews MD [address] [place] [address] 06/01/2025 10:00 AM EDT Office Visit [facility] ADULT DENTAL [address] [place] [address] Kristen Perez documented as of this encounter Visit Diagnoses Not on filedocumented in this encounter Additional Health Concerns Assessment Noted Time PHQ-9 Depression Total Score: 4 03/04/20 23 2:58 PM EDT documented as of this encounter Care Teams Proof Clerk Relationship Specialty Start Date End Date Tor Crews MD [address] [place] [address] PCP - General Internal Medicine 07/21/14 documented as of this encounter
--- OUTSIDE RECORDS SUMMARY | 2024-12-28 10:08 | XMS_ITS | Encounter Summary ---
Author Organization [employer] Address [address] 7[address] [place] [address] Care Team Providers Care Supplies Packer Name Role Phone Tor Crews MD Primary Care Provide r Encounter Details Date Type Department Care Team (Late st Contact Info) Description 11/28/2022 Abstract [facility] MEDICINE [address] [place] [address] Tor Crews MD [address] [place], [place] [phone] Social History Tobacco Use Types Packs/Day Years [...] Description 01/20/2025 11:00 AM EDT Office Visit [facility] ADULT DENTAL [address] [place], [place] [phone] Kristen Perez 02/10/2025 1:00 PM EDT Office Visit [facility] MEDICINE [address] [place], [place] [phone] Tor Crews MD [address] [place] [address] 06/01/2025 10:00 AM EDT Office Visit [facility] ADULT DENTAL [address] [place], [place] [phone] Kristen Perez documented as of this encounter Visit Diagnoses Not on filedocumented in this encounter Care Teams Supplies Packer Relationship Specialty Start Date End Date Tor Crews MD [address] [place] [address] PCP - General Internal Medicine 07/21/14 documented as of this encounter
[2024-12-28 18:11] LABS: MANUAL DIFF FLAG NO
[2024-12-28 18:44] LABS: Alanine Aminotransferase 32 U/L (0-40); Albumin Level 4.4 g/dL (3.5-5.0); Alkaline Phosphatase 64 U/L (39-117); Anion Gap 15 (12-20); Aspartate Amino Transferase 29 U/L (5-37); Bilirubin Total 0.5 mg/dL (0.0-1.0); Blood Urea Nitrogen 25 mg/dL (9-16); Calcium 9.5 mg/dL (8.4-10.2); Carbon Dioxide 23 mmol/L (22-29); Chloride 105 mmol/L (96-108); Estimated Glomerular Filt Rate 44; Glucose Random 239 mg/dL (60-115); Magnesium 2.3 mg/dL (1.6-2.6); Potassium 4.2 mmol/L (3.3-5.1); Sodium 139 mmol/L (135-145); Total Protein 7.6 g/dL (6.5-8.0)
[2024-12-28 18:54] LABS: Basophils Percent Auto 0.4 % (0-2); Eosinophils Absolute Auto 0.2 X10*3/uL (0.0-0.4); Eosinophils Percent Auto 2.5 % (0-4); Hematocrit 43.1 % (42.0-52.0); Imm Gran Abs Auto 0.02 X10*3/uL (0.00-0.03); Imm Gran Pct Auto 0.3 % (0.0-0.4); Lymphocytes Absolute Auto 1.5 X10*3/uL (1.2-4.9); Lymphocytes Percent Auto 21.8 % (20-40); Mean Corpuscular HGB Conc 34.8 g/dl (31.0-36.0); Mean Corpuscular Hemoglobin 29.4 pg (27.0-33.0); Mean Corpuscular Volume 84.5 fL (80.0-98.0); Mean Platelet Volume 11.2 fL (9.4-12.4); Monocytes Absolute Auto 0.4 X10*3/uL (0.1-1.2); Monocytes Percent Auto 6.3 % (2-11); Neutrophils Absolute Auto 4.7 x10*3/uL (2.0-8.3); Neutrophils Percent Auto 68.7 % (45-73); Platelet Count 215 X10*3/uL (160-400); Red Cell Distribution Width 13.3 % (11.0-16.0); White Blood Count 6.8 X10*3/uL (4.8-10.8)
[2024-12-28 19:04] LABS: TSH reflex Free T4 1.98 uIU/mL (0.32-4.0)
[2024-12-28 19:09] LABS: Folate 8.8 ng/mL (> or = 4.0); Vitamin B12 500 pg/mL (200-900)
[2024-12-28 19:10] LABS: Erythrocyte Sedimentation Rate 6 MM/HR (0-15)
[2024-12-29 19:58] LABS: CRP High Sensitivity 4.3 mg/L
[2025-01-02 15:39] LABS: Vitamin D 25-OH, D2 <4 ng/mL; Vitamin D 25-OH, D3 29 ng/mL; Vitamin D 25-OH, Total 29 ng/mL (30-100)
== END 2024-12-28 07:54 | disposition home or self-care (01) ==
LOC: HO.HKASLDS 07:53
PROVIDERS: PCP Internal Medicine; Visit Provider Nurse Practitioner Family
DX: G47.33 Obstructive sleep apnea (adult) (pediatric) (principal); I10 Essential (primary) hypertension; I42.8 Other cardiomyopathies; G25.81 Restless legs syndrome
CPT/HCPCS: 36415; 80053; 82306; 82550; 82607; 82746; 83735; 84443; 85025; 85652; 86141; 99212

== ENCOUNTER 2024-12-30 08:54 | Emergency (ER) | payer OTHER, SELFPAY ==
--- NOTE | ~2024-12-30 | CT_ITS ---
EXAMINATION: CT ABDOMEN AND PELVIS WITHOUT CONTRAST CLINICAL INFORMATION: Abdominal pain. Diarrhea. Colitis. COMPARISON: May 27, 2013 is not available on PACS system TECHNIQUE: Multidetector volumetric imaging was performed from the superior aspect of the liver through the pubic symphysis. Sagittal and coronal reformatted images were obtained on the technologist's workstation. This CT examination was performed using dose optimization techniques as appropriate, variously including the following: *Automated exposure control *Adjustment of mA and/or kV according to patient size (this includes techniques or standardized protocols for targeted exams where dose is matched to indication/reason for exam; i.e. extremities or head) *Use of iterative reconstruction technique. DLP: 585 mGy centimeter. FINDINGS: Limited evaluation of the intra-abdominal organs and vascular structures due to lack of IV contrast. LUNG BASES: No acute airspace disease in the included lungs. LIVER, GALLBLADDER, AND BILIARY TREE: Liver measures 16 cm. No intrahepatic biliary ductal dilatation. Punctate calcification right hepatic lobe.. No pericholecystic fluid collection or gallbladder wall thickening. No intrahepatic or extrahepatic biliary ductal dilatation. PANCREAS: No peripancreatic fluid collection. No main pancreatic ductal dilatation. SPLEEN: 13 cm. ADRENAL GLANDS: No nodular lesions. KIDNEYS AND URETERS: The kidneys are in a lower position at the iliac crest level with lateral orientation of the renal hilum bilaterally. No hydronephrosis in either kidney. No gross nephrolithiasis. BLADDER: Fluid-filled nearly collapsed. GASTROINTESTINAL TRACT: Gas and fluid-filled nondistended large intestine. Gas and fluid-filled prominent small bowel loops with questionable wall thickening involving the jejunal loops. No pneumatosis intestinalis. No ascites. No pneumoperitoneum. Appendix is normal. ABDOMINAL WALL: Fat-containing umbilical hernia, small to moderate size. LYMPH NODES: No lymphadenopathy. VASCULAR: No aneurysm, abdominal aorta. PELVIC VISCERA: Nonenlarged prostate gland or seminal vesicles. OSSEOUS STRUCTURES: Lumbar spondylosis from L2-3 to L5-S1. Electrode leads in the right heart chambers. CT/CT abdomen pelvis wo IV con IMPRESSION: Concerning enterocolitis in the correct clinical settings without intestinal obstruction pattern. Fat-containing umbilical hernia. 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 Fleischner guidelines were followed. Electronically signed by: Nikhil Kilpatrick MD 12/30/2024 11:04 AM EST RP
[2024-12-30 09:11] VITALS: BP 132/76; BP 132/78; PULSE 108; PULSE 114; RESP 18; TEMP 36.8; O2SAT 96; BMI 31.2
--- NOTE | 2024-12-30 09:27 | ECG_ITS ---
Test Reason : abdominal pain Blood Pressure : */* mmHG Vent. Rate : 99 BPM Atrial Rate : 99 BPM P-R Int : * ms QRS Dur : 162 ms QT Int : 398 ms P-R-T Axes : * 85 -71 degrees QTcB Int : 510 ms Ventricular-paced rhythm with occasional , and consecutive Premature ventricular complexes Abnormal ECG When compared with ECG of 16-Oct-2024 12:07, Premature ventricular complexes are now Present Vent. rate has increased by 12 bpm Referred By: Abraham Gay Electronically Signed By: GLO HUNTLEY MD
--- NOTE | 2024-12-30 09:36 | ED_ITS ---
HPI - General Adult General Chief complaint: Abdominal Pain Stated complaint: UQ PAIN,VOMITING,DIARREHA,X3+D PER EMS Time Seen by Provider: 12/30/24 09:19 Mode of arrival: ambulatory Limitations: no limitations History of Present Illness ED Provider: Abraham Gay HPI narrative: 54 yold male with pmh of DM, pacem maker, systolic CHF, presents to the ED for abdominal pain, nausea, vomiting, diarrhea the past 3 days. Pain upper abdominal area. Patient denies any chest pain or shortness of breath. Patient denies any blood in stool. Patient denies any recent travel outside the country. Patient denies any genitourinary symptoms Related Data Home Medications ?Medication ?Instructions ?Recorded ?Confirmed cholecalciferol (vitamin D3) 25 25 mcg PO DAILY 08/16/20 12/28/24 mcg (1,000 unit) tablet insulin glargine 100 unit/mL 40 unit subcut BEDTIME 03/13/21 12/28/24 subcutaneous solution sertraline 100 mg tablet 200 mg PO DAILY 03/13/21 12/28/24 hydroxyzine pamoate 50 mg capsule 50 mg PO BEDTIME PRN Anxiety 06/26/21 12/28/24 mirtazapine 45 mg tablet 45 mg PO BEDTIME 06/26/21 12/28/24 omeprazole 40 mg capsule,delayed 40 mg PO DAILY@0630 11/01/21 12/28/24 release pen needle, diabetic 32 gauge x #50 ea 11/01/21 12/28/24 (Pentips Pen Needle) aspirin 81 mg tablet,delayed 81 mg PO DAILY 10/16/22 12/28/24 release fenofibrate 54 mg tablet 54 mg PO DAILY 08/13/23 12/28/24 insulin aspart U-100 100 unit/mL See Protocol subcut TIDAC 08/13/23 12/28/24 (3 mL) subcutaneous pen omega-3 300 mg-dha 120 mg-epa 180 1 cap PO TID 08/13/23 12/28/24 mg-fish oil 1,000 mg capsule empagliflozin 25 mg tablet 25 mg PO DAILY 10/21/24 12/28/24 (Jardiance) furosemide 40 mg tablet 40 mg PO DAILY 10/21/24 12/28/24 metoprolol succinate 25 mg 12.5 mg PO DAILY 10/21/24 12/28/24 tablet,extended release 24 hr semaglutide 0.25 mg or 0.5 mg (2 0.5 mg subcut WE 10/21/24 12/28/24 mg/3 mL) subcutaneous pen injector (Ozempic) Previous Rx's ?Medication ?Instructions ?Recorded albuterol sulfate 90 mcg/actuation 2 inh inhalation Q4-6H PRN 08/01/20 breath activated powder inhaler shortness of breath or wheezing #1 ea lancets 33 gauge (TRUEplus Lancets) #200 ea 03/13/21 flash glucose scanning reader #1 ea 01/31/22 (FreeStyle Garrick 2 [place]) flash glucose sensor (FreeStyle #2 ea 01/31/22 Garrick 2 Sensor kit) metformin 500 mg tablet 500 mg PO BID #60 tabs 02/05/22 blood sugar diagnostic (FreeStyle #150 ea 05/02/22 Lite Strips) acetaminophen 500 mg tablet 1,000 mg (2 x 500 mg) PO QID PRN 05/16/22 (Tylenol Extra Strength) fever or pain #14 tabs sacubitril 24 mg-valsartan 26 mg 1 tab PO BID #30 tabs 08/15/23 tablet (Entresto) spironolactone 25 mg tablet 12.5 mg PO DAILY #30 tabs 08/15/23 carvedilol 6.25 mg tablet (Coreg) 6.25 mg PO BID #60 tabs 06/14/24 ivabradine 7.5 mg tablet (Corlanor) 7.5 mg PO BID #180 tabs 08/23/24 nebulizers (AeroEclipse II #1 ea 10/16/24 Nebulizer) doxycycline hyclate 100 mg tablet 100 mg PO BID #14 tabs 10/25/24 glyburide 5 mg tablet 10 mg (2 x 5 mg) PO BIDWM #60 tabs 10/25/24 prednisone 20 mg tablet See Rx Instructions .Route 10/25/24 .COMPLEX #18 tabs digoxin 250 mcg (0.25 mg) tablet 250 mcg PO DAILY #90 tabs 10/29/24 Allergies Allergy/AdvReac Type Severity Reaction Status Date / Time No Known Allergies Allergy Verified 12/30/24 09:16 [No Known Allergies*] Review of Systems 2 Review of Systems: Abdominal pain nausea vomiting diarrhea Yes all other systems are reviewed and are negative [facility] Past Medical History Medical History ICD (implantable cardioverter-defibrillator) lead failure Biventricular ICD (implantable cardioverter-defibrillator) in place Nonischemic cardiomyopathy GERD (gastroesophageal reflux disease) Asthma NANO (obstructive sleep apnea) Obesity due to excess calories HLD (hyperlipidemia) Type 2 diabetes mellitus with chronic kidney disease Heart failure with reduced ejection fraction Implantable cardioverter-defibrillator lead failure High cholesterol Diabetes HTN (hypertension) Pacemaker Surgical History S/P ICD (internal cardiac defibrillator) procedure History of tonsillectomy Hx of cardiac cath Hx of transesophageal echocardiography (DAWN) for monitoring History of permanent cardiac pacemaker placement (~2008) History of circumcision Family History Family History Father HTN (hypertension) Diabetes CVD (cardiovascular disease) Hypercholesterolemia Mother Hypercholesterolemia HTN (hypertension) Diabetes Social History Social History Household Members: Spouse Household Members Other:: SO:Thu Housing: Apartment Do you presently have visiting nurse or other home services: No Alcohol intake: current Alcohol intake frequency: 3 or more drinks per day Patient Tobacco Use Status: Never used Tobacco Tobacco use type: Cigarette service: No Physical Exam ED Vital Signs: Vital Signs - 24 hr 12/30/24 13:47 12/30/24 14:47 Temperature 99.0 F 98.9 F Pulse Rate 86 88 Respiratory Rate 18 18 Blood Pressure 107/52 L 116/56 L Pulse Oximetry 95 95 Oxygen Delivery Method Room Air Room Air BMI result Body Mass Index 31.2 Const General: cooperative, healthy appearing, comfortable, no acute distress, well developed, alert, awake and Physically active Orientation/consciousness: patient oriented x3 HENMT Head: Yes normal to inspection, Yes No palpable skull fracture present, Yes normocephalic and Yes atraumatic Ears: hearing grossly normal bilaterally, external ears normal, TM's normal bilaterally, TM normal on the right, TM normal on the left and EAC's normal Throat: Yes posterior oropharynx normal, Yes tonsils normal and Yes uvula midline Eyes General: appearance normal, both eyes and all related structures Neck Neck: Yes normal visual inspection, Yes full ROM, Yes no lymphadenopathy, Yes no meningeal signs, Yes trachea midline, Yes supple, No anterior neck swelling and No tender Chest Chest palpation & inspection: normal inspection of the chest and normal palpation of entire chest wall Resp Effort & Inspection: normal respiratory effort and able to speak in complete sentences Auscultation: clear to auscultation bilaterally Cardio Jugular venous distension: no JVD Heart sounds: S1 normal heart sound present and S2 normal heart sound present GI Inspection: Yes normal to inspection Palpation (GI): Soft to palpation, not firm, Tenderness to palpation present (GI) in the epigastrum; not in the LLQ, not in the RLQ, not in the LUQ, not in the RUQ, not at McBurney's point, not periumbilically, not suprapubicly, Victor's sign negative, obturator sign negative, psoas sign negative, with no rebound tenderness and Rovsing's sign negative, no guarding and not rigid General: Yes no CVA tenderness Back/Spine/Pelvis Back: no CVA tenderness and No back tenderness Skin General skin exam: no rashes or lesions noted, elasticity normal and turgor normal Neuro General: patient oriented x3, gait normal, tone normal, moves all extremities, Normal light touch and pain sensation, no meningeal signs, no focal motor deficits and CN's II-XI intact bilaterally Extrem General: Yes normal to inspection, Yes full ROM and Yes capillary refill normal Psych Appearance: grossly normal, well kempt and not disheveled Medications Administered Discontinued Medications Generic Name Dose Route Start Last Admin Trade Name Teddyq PRN Reason Stop Dose Admin Al Hydroxide/Mg Hydroxide 30 ml 12/30/24 09:36 12/30/24 11:00 Magnesium Hydrox/Alum Hydrox 30 Ml Oral.Susp PO 12/30/24 09:37 Not Given ONCE ONE Sodium Chloride 500 mls @ 500 mls/hr 12/30/24 09:32 12/30/24 10:41 Ns IV 12/30/24 10:31 Infused .Q1H STA Infusion Lidocaine HCl 15 ml 12/30/24 09:36 12/30/24 11:00 Lidocaine Hcl Viscous 2 % 15 Ml Solution MUCOUS MEM 12/30/24 09:37 Not Given ONCE ONE Morphine Sulfate 4 mg 12/30/24 09:40 12/30/24 09:44 Morphine Sulfate 4 Mg/Ml Cartridge IVPUSH 12/30/24 09:41 4 mg ONCE ONE Administration Protocol Ondansetron HCl 4 mg 12/30/24 09:28 12/30/24 09:40 Ondansetron Hcl 4 Mg/2 Ml Vial IVPUSH 12/30/24 09:29 4 mg ONCE ONE Administration Medical Decision Making Medical Decision Making MDM Narrative: 54-year-old male history of diabetes, CHF, pacemaker presents to ED for nausea vomiting and diarrhea without any blood in stool. Patient states pain in epigastric area. Patient denies any fever, chills, chest pain, shortness of breath, coughing, or any genitourinary symptoms. Labs ordered to make sure patient is not in DKA. EKG ordered to make sure patient is not have any typical ND. Patient is sent for turning CT scan stick for any abdominal etiology. Not able to do IV contrast to the patient's CK level of 3 G for GFR less than 40. Patient given 500 mL of fluid. Morphine ordered 12:10pm: Patient's CT scan shows enterocolitis. Patient feels better after fluids morphine. Patient states he will wait longer to try to give stool sample and urine. 2:01pm: Urine came back normal. Patient is educated on brat diet and informed for follow up with primary care provider. Patient explained worrisome symptoms and informed to return to the ED immediately. Not suspecting perforation, GI bleed, dissection, small bowel obstruction, ND, pneumonia, hemothorax, mesenteric ischemia, or any other concerning symptoms. 4:00Pm: Patient called and informed of positive Libby Virus Differential Diagnosis Differential Diagnoses: The differential diagnosis associated with the presentation includes (Colitis, COVID,) Admission/Observation Consideration of admission/observation: Escalation of care including admission/observation considered Lab Data 12/30/24 09:34 12/30/24 09:33 Labs: Lab Results 12/30/24 12/30/24 12/30/24 Range/Units 09:33 09:34 11:58 WBC 8.0 (4.8-10.8) X10*3/uL RBC 5.59 (4.60-5.80) X10*6/uL Hgb 16.0 (14.0-18.0) g/dl Hct 45.2 (42.0-52.0) % MCV 80.9 (80.0-98.0) fL MCH 28.6 (27.0-33.0) pg MCHC 35.4 (31.0-36.0) g/dl RDW 12.8 (11.0-16.0) % Plt Count 252 (160-400) X10*3/uL MPV 10.2 (9.4-12.4) fL Immature Gran % (Auto) 0.3 (0.0-0.4) % Neut % (Auto) 85.1 H (45-73) % Lymph % (Auto) 7.0 L (20-40) % [place] % (Auto) 7.2 (2-11) % Eos % (Auto) 0.1 (0-4) % Baso % (Auto) 0.3 (0-2) % Lymph # (Auto) 0.6 L (1.2-4.9) X10*3/uL [place] # (Auto) 0.6 (0.1-1.2) X10*3/uL Eos # (Auto) 0.0 (0.0-0.4) X10*3/uL Baso # (Auto) 0.0 (0.0-0.2) X10*3/uL Abs Immat Gran (auto) 0.02 (0.00-0.03) X10*3/uL Absolute Neuts (auto) 6.8 (2.0-8.3) x10*3/uL Absolute Nucleated RBC 0.000 (0.0-0.012) X10*3/uL Nucleated RBC % (auto) 0.0 (0.0-0.2) /100WBC VBG pH (7.32-7.43) VBG pCO2 mmHg VBG pO2 mmHg VBG HCO3 (22-26) mmol/L VBG O2 Saturation % VBG Base Excess mmol/L Sodium 140 (135-145) mmol/L Potassium 3.8 (3.3-5.1) mmol/L Chloride 109 H (96-108) mmol/L Carbon Dioxide 20 L (22-29) mmol/L Anion Gap 15 (12-20) BUN 22 H (9-16) mg/dL Creatinine 1.82 H (0.5-1.4) mg/dL Estim Creat Clear Calc 50.3 Estimated GFR 39 Random Glucose 200 H (60-115) mg/dL Calcium 9.6 (8.4-10.2) mg/dL Total Bilirubin 0.4 (0.0-1.0) mg/dL AST 19 (5-37) U/L ALT 27 (0-40) U/L Alkaline Phosphatase 74 (39-117) U/L Troponin I High Sens 3.8 4.7 (<3.5-35.0) ng/L B-Natriuretic Peptide 64 (<100) pg/mL Total Protein 8.1 H (6.5-8.0) g/dL Albumin 4.6 (3.5-5.0) g/dL Lipase 17 (8-78) U/L Beta-Hydroxybutyrate 0.12 (0.02-0.27) mmol/L Urine Color Urine Appearance Urine pH (5.0-9.0) Ur Specific [place] (1.005-1.025) Urine Protein (Neg-Trace) mg/dL Urine Glucose (UA) (Negative) mg/dL Urine Ketones (Negative) mg/dL Urine Blood (Negative) Urine Nitrite (Negative) Ur Leukocyte Esterase (Negative) Urine RBC (0-2) /HPF Urine WBC (0-5) /HPF Ur Squamous Epith Cells (0-2) /HPF Urine Bacteria (None Seen) Hyaline Casts (0-2) /LPF Stl C. cayetanensis PCR (Not Detect.) Stool Rotavirus A PCR (Not Detect.) Stl Adenov F 40/41 PCR (Not Detect.) Stool Astrovirus (PCR) (Not Detect.) Stool Campylobacter PCR (Not Detect.) Stool Cryptosporidium PCR (Not Detect.) Stl Sh Tox Pr E STEC PCR (Not Detect.) Stool E coli O157 PCR (Not Detect.) Stl Enterotoxigenic E PCR (Not Detect.) Stool EPEC (PCR) (Not Detect.) Stool EAEC (PCR) (Not Detect.) Stl E. histolytica PCR (Not Detect.) Stool Giardia Lamblia PCR (Not Detect.) Stl P. shigelloides PCR (Not Detect.) Stool Salmonella PCR (Not Detect.) Stool Sapovirus (PCR) (Not Detect.) Stl Shigella/EIEC PCR (Not Detect.) St Y.enterocolitica PCR (Not Detect.) Stool Vibrio (PCR) (Not Detect.) Stl Vibrio cholerae PCR (Not Detect.) Stl Norovirus GI/GII PCR (Not Detect.) C. difficile Tox B Gene (Negative) Influenza Type A (PCR) NEGATIVE (Negative) Influenza Type B (PCR) NEGATIVE (Negative) RSV RNA Qual (PCR) NEGATIVE (Negative) SARS-CoV-2 RNA (RT-PCR) NEGATIVE (Negative) 12/30/24 12/30/24 Range/Units 12:01 12:39 WBC (4.8-10.8) X10*3/uL RBC (4.60-5.80) X10*6/uL Hgb (14.0-18.0) g/dl Hct (42.0-52.0) % MCV (80.0-98.0) fL MCH (27.0-33.0) pg MCHC (31.0-36.0) g/dl RDW (11.0-16.0) % Plt Count (160-400) X10*3/uL MPV (9.4-12.4) fL Immature Gran % (Auto) (0.0-0.4) % Neut % (Auto) (45-73) % Lymph % (Auto) (20-40) % [place] % (Auto) (2-11) % Eos % (Auto) (0-4) % Baso % (Auto) (0-2) % Lymph # (Auto) (1.2-4.9) X10*3/uL [place] # (Auto) (0.1-1.2) X10*3/uL Eos # (Auto) (0.0-0.4) X10*3/uL Baso # (Auto) (0.0-0.2) X10*3/uL Abs Immat Gran (auto) (0.00-0.03) X10*3/uL Absolute Neuts (auto) (2.0-8.3) x10*3/uL Absolute Nucleated RBC (0.0-0.012) X10*3/uL Nucleated RBC % (auto) (0.0-0.2) /100WBC VBG pH 7.40 (7.32-7.43) VBG pCO2 36 mmHg VBG pO2 81 mmHg VBG HCO3 22 (22-26) mmol/L VBG O2 Saturation 99.0 % VBG Base Excess -1.4 mmol/L Sodium (135-145) mmol/L Potassium (3.3-5.1) mmol/L Chloride (96-108) mmol/L Carbon Dioxide (22-29) mmol/L Anion Gap (12-20) BUN (9-16) mg/dL Creatinine (0.5-1.4) mg/dL Estim Creat Clear Calc Estimated GFR Random Glucose (60-115) mg/dL Calcium (8.4-10.2) mg/dL Total Bilirubin (0.0-1.0) mg/dL AST (5-37) U/L ALT (0-40) U/L Alkaline Phosphatase (39-117) U/L Troponin I High Sens (<3.5-35.0) ng/L B-Natriuretic Peptide (<100) pg/mL Total Protein (6.5-8.0) g/dL Albumin (3.5-5.0) g/dL Lipase (8-78) U/L Beta-Hydroxybutyrate (0.02-0.27) mmol/L Urine Color Yellow Urine Appearance Clear Urine pH 5.5 (5.0-9.0) Ur Specific [place] >= 1.030 H (1.005-1.025) Urine Protein Negative (Neg-Trace) mg/dL Urine Glucose (UA) >=1000 H (Negative) mg/dL Urine Ketones Trace (Negative) mg/dL Urine Blood Negative (Negative) Urine Nitrite Negative (Negative) Ur Leukocyte Esterase Negative (Negative) Urine RBC 0-2 (0-2) /HPF Urine WBC 0-5 (0-5) /HPF Ur Squamous Epith Cells 0-2 (0-2) /HPF Urine Bacteria None Seen (None Seen) Hyaline Casts 0-2 (0-2) /LPF Stl C. cayetanensis PCR Not Detected (Not Detect.) Stool Rotavirus A PCR Not Detected (Not Detect.) Stl Adenov F 40/41 PCR Not Detected (Not Detect.) Stool Astrovirus (PCR) Not Detected (Not Detect.) Stool Campylobacter PCR Not Detected (Not Detect.) Stool Cryptosporidium PCR Not Detected (Not Detect.) Stl Sh Tox Pr E STEC PCR Not Detected (Not Detect.) Stool E coli O157 PCR Not applicable (Not Detect.) Stl Enterotoxigenic E PCR Not Detected (Not Detect.) Stool EPEC (PCR) Not Detected (Not Detect.) Stool EAEC (PCR) Not Detected (Not Detect.) Stl E. histolytica PCR Not Detected (Not Detect.) Stool Giardia Lamblia PCR Not Detected (Not Detect.) Stl P. shigelloides PCR Not Detected (Not Detect.) Stool Salmonella PCR Not Detected (Not Detect.) Stool Sapovirus (PCR) Not Detected (Not Detect.) Stl Shigella/EIEC PCR Not Detected (Not Detect.) St Y.enterocolitica PCR Not Detected (Not Detect.) Stool Vibrio (PCR) Not Detected (Not Detect.) Stl Vibrio cholerae PCR Not Detected (Not Detect.) Stl Norovirus GI/GII PCR Detected A (Not Detect.) C. difficile Tox B Gene NEGATIVE (Negative) Influenza Type A (PCR) (Negative) Influenza Type B (PCR) (Negative) RSV RNA Qual (PCR) (Negative) SARS-CoV-2 RNA (RT-PCR) (Negative) Independent Interpretation I performed an independent interpretation of an: EKG (Negative STEMI) Independent Historian Clinical information obtained from an independent historian. History obtained from or confirmed by: Other (Patient) Discharge Plan Discharge Clinical Impression: Gastroenteritis Patient Disposition: Home, Self-Care Instructions: Gastroenteritis (ED) Additional Instructions: Recommend brat diet ( Banna, Rice, Applesuace and ToasT). Recommend follow-up with primary care provider. Return to the ED immediately for any worsening abdominal pain, chest pain, shortness of breath, weakness, dizziness, blood in stool, weakness, or any other concerning symptoms. You will be called with results of does any positive bacteria or virus in his stool. CT/CT abdomen pelvis wo IV con IMPRESSION: Concerning enterocolitis in the correct clinical settings without intestinal obstruction pattern. Fat-containing umbilical hernia. 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 Fleischner guidelines were followed. Electronically signed by: Nikhil Kilpatrick MD 12/30/2024 11:04 AM [facility] [place] Dictated By: Nikhil Dubois MD Signed By: <Electronically signed by Nikhil Mcdonnell MD in [place]> 12/30/24 1104 Prescriptions: No Action metformin 500 mg tablet 500 mg PO BID Qty: 60 6RF (DME) FreeStyle Lite Strips Strip See Rx Instructions .ROUTE .MEDSUPPLY Qty: 150 11RF Rx Instructions: As directed four times a day Corlanor 7.5 mg tablet 7.5 mg PO BID Qty: 180 3RF digoxin 250 mcg (0.25 mg) tablet 250 mcg PO DAILY Qty: 90 3RF albuterol sulfate 90 mcg/actuation aerosol powdr breath activated 2 inh inhalation Q4-6H PRN (Reason: shortness of breath or wheezing) Qty: 1 0RF acetaminophen [Tylenol Extra Strength] 500 mg tablet 1,000 mg PO QID PRN (Reason: fever or pain) Qty: 14 0RF fenofibrate 54 mg tablet 54 mg PO DAILY omega 9-ebn-mne-fish oil 300 mg (120 mg- 180mg)-1,000 mg capsule 1 cap PO TID insulin aspart U-100 100 unit/mL (3 mL) insulin pen See Protocol subcut TIDAC Protocol: Insulin Correction Scale Less than or equal to 110 ---- Give (units): 0 111 to 150 Give (units): 0 151 to 200 Give (units): 2 201 to 250 Give (units): 4 251 to 300 Give (units): 6 301 to 350 Give (units): 8 Greater than 350 Give (units): 10 Call if Blood Glucose > : 350 spironolactone 25 mg Tablet 12.5 mg PO DAILY Qty: 30 0RF Protocol: Hold for SBP< HOLD for SBP < : 90 sacubitril-valsartan [Entresto] 24-26 mg Tablet 1 tab PO BID Qty: 30 0RF Protocol: Hold for SBP< HOLD for SBP < : 90 furosemide 40 mg tablet 40 mg PO DAILY metoprolol succinate 25 mg tablet extended release 24 hr 12.5 mg PO DAILY Ozempic 0.25 mg or 0.5 mg (2 mg/3 mL) pen injector 0.5 mg subcut WE Jardiance 25 mg tablet 25 mg PO DAILY glyburide 5 mg Tablet 10 mg PO BIDWM Qty: 60 0RF doxycycline hyclate 100 mg tablet 100 mg PO BID Qty: 14 0RF prednisone 20 mg tablet See Rx Instructions .Route .COMPLEX Qty: 18 0RF Rx Instructions: 20 mg orally; 3 tabs daily for 3 days, 2 tabs daily for 3 days, 1 tab daily for 3 days (DME) nebulizers [AeroEclipse II Nebulizer[place] [facility] [place] Rx Instructions .Route Qty: 1 0RF Rx Instructions: As directed cholecalciferol (vitamin D3) 25 mcg (1,000 unit) tablet 25 mcg PO DAILY sertraline 100 mg tablet 200 mg PO DAILY insulin glargine 100 unit/mL solution 40 unit subcut BEDTIME (DME) lancets [TRUEplus Lancets] 33 gauge [facility] [place] See Rx Instructions .ROUTE .MEDSUPPLY Qty: 200 11RF Rx Instructions: Four times a day mirtazapine 45 mg tablet 45 mg PO BEDTIME hydroxyzine pamoate 50 mg capsule 50 mg PO BEDTIME PRN (Reason: Anxiety) omeprazole 40 mg capsule,delayed release(DR/EC) 40 mg PO DAILY@0630 (DME) pen needle, diabetic [Pentips Pen Needle] 32 gauge x 5/32 needle See Rx Instructions .ROUTE TID Qty: 50 Rx Instructions: As directed (DME) FreeStyle Gar[place] [facility] [place] See Rx Instructions .ROUTE .MEDSUPPLY Qty: 1 0RF Rx Instructions: As directed (DME) FreeStyle Garrick 2 Sensor Kit See Rx Instructions .ROUTE .MEDSUPPLY Qty: 2 11RF Rx Instructions: As directed every 2 weeks aspirin 81 mg tablet,delayed release (DR/EC) 81 mg PO DAILY carvedilol [Coreg] 6.25 mg tablet 6.25 mg PO BID Qty: 60 5RF Rx Instructions: must administer with a meal/food Interventions: ED Discharge Assessment Last Done: 12/30/24 14:47 Discharge Date/Time: 12/30/24 15:00 Print Language: Estonian
[2024-12-30 09:38] LABS: MANUAL DIFF FLAG NO
[2024-12-30 09:39] LABS: Basophils Percent Auto 0.3 % (0-2); Eosinophils Percent Auto 0.1 % (0-4); Hematocrit 45.2 % (42.0-52.0); Imm Gran Abs Auto 0.02 X10*3/uL (0.00-0.03); Imm Gran Pct Auto 0.3 % (0.0-0.4); Lymphocytes Absolute Auto 0.6 X10*3/uL (1.2-4.9); Mean Corpuscular HGB Conc 35.4 g/dl (31.0-36.0); Mean Corpuscular Hemoglobin 28.6 pg (27.0-33.0); Mean Corpuscular Volume 80.9 fL (80.0-98.0); Mean Platelet Volume 10.2 fL (9.4-12.4); Monocytes Absolute Auto 0.6 X10*3/uL (0.1-1.2); Monocytes Percent Auto 7.2 % (2-11); Neutrophils Absolute Auto 6.8 x10*3/uL (2.0-8.3); Neutrophils Percent Auto 85.1 % (45-73); Platelet Count 252 X10*3/uL (160-400); Red Blood Count 5.59 X10*6/uL (4.60-5.80); Red Cell Distribution Width 12.8 % (11.0-16.0)
[2024-12-30] MEDS: ondansetron HCL 4 MG/2 ML VIAL IVPUSH (09:40)
[2024-12-30] MEDS: 0.9 % Sodium Chloride 500 ML IV (09:41)
[2024-12-30] MEDS: Morphine Sulfate 4 MG/ML CARTRIDGE IVPUSH (09:44)
--- NOTE | 2024-12-30 09:47 | PC.NURSE ---
patient a&ox3, iv inserted, labs drawn, swab obtained, pt medicated per orders, family at bedside, call heranndez within reach, plan of care ongoing
[2024-12-30 10:01] LABS: Troponin-I High Sensitivity 3.8 ng/L (<3.5-35.0)
[2024-12-30 10:07] LABS: Alanine Aminotransferase 27 U/L (0-40); Albumin Level 4.6 g/dL (3.5-5.0); Alkaline Phosphatase 74 U/L (39-117); Anion Gap 15 (12-20); Aspartate Amino Transferase 19 U/L (5-37); Beta-Hydroxybutyrate 0.12 mmol/L (0.02-0.27); Bilirubin Total 0.4 mg/dL (0.0-1.0); Blood Urea Nitrogen 22 mg/dL (9-16); Calcium 9.6 mg/dL (8.4-10.2); Carbon Dioxide 20 mmol/L (22-29); Chloride 109 mmol/L (96-108); Creatinine Clr Calc Pharmacy 50.3; Estimated Glomerular Filt Rate 39; Glucose Random 200 mg/dL (60-115); Lipase 17 U/L (8-78); Potassium 3.8 mmol/L (3.3-5.1); Sodium 140 mmol/L (135-145); Total Protein 8.1 g/dL (6.5-8.0)
[2024-12-30 10:24] LABS: Influenza A PCR NEGATIVE (Negative); Influenza B PCR NEGATIVE (Negative); Resp Syncy Virus RNA Qual PCR NEGATIVE (Negative); SARS COV2 PCR INHOUSE NEGATIVE (Negative)
[2024-12-30 10:48] LABS: B Type Natriuretic Peptide 64 pg/mL (<100)
--- OUTSIDE RECORDS SUMMARY | 2024-12-30 10:56 | XMS_ITS | Encounter Summary ---
Author Organization [employer] Address [address] [place] [address] Care Team Providers Care Solid Plasterer Name Role Phone Tor Crews MD Primary Care Provide r Encounter Details Date Type Department Care Team ([facility] st Contact Info) Description 10/15/2024 Orders Only [facility] MEDICINE [address] [place], [place] [phone] Arcelia Watkins ANP [address] [place], [place] [phone] Social History Tobacco Use Types Packs/Day Years [...] Description 01/20/2025 11:00 AM EDT Office Visit [facility] ADULT DENTAL [address] [place] [address] Kristen Perez 02/10/2025 1:00 PM EDT Office Visit [facility] MEDICINE [address] [place] [address] Tor Crews MD [address] [place] [address] 06/01/2025 10:00 AM EDT Office Visit [facility] ADULT DENTAL [address] [place] [address] Kristen Perez documented as of this encounter Visit Diagnoses Not on filedocumented in this encounter Additional Health Concerns Assessment Noted Time PHQ-9 Depression Total Score: 4 03/04/20 23 2:58 PM EDT documented as of this encounter Care Teams Solid Plasterer Relationship Specialty Start Date End Date Tor Crews MD [address] [place] [address] PCP - General Internal Medicine 07/21/14 documented as of this encounter
--- OUTSIDE RECORDS SUMMARY | 2024-12-30 10:56 | XMS_ITS | Encounter Summary ---
Author Organization [employer] Address [address] [place] [address] Care Team Providers Care Police Sergeant Name Role Phone Tor Crews MD Primary Care Provide r Reason for Visit * Reason Comments Med Refill Encounter Details Date Type Department Care Team ([facility] st Contact Info) Description 11/18/2024 Refill [facility] MEDICINE [address] [place], [place] [phone] Tor Crews MD [address] [place], [place] [phone] Type 2 diabetes mellitus without complications (CMS/HCC) [...] Description 01/20/2025 11:00 AM EDT Office Visit [facility] ADULT DENTAL [address] [place] [address] Kristen Perez 02/10/2025 1:00 PM EDT Office Visit [facility] MEDICINE [address] [place] [address] Tor Crews MD [address] [place] [address] 06/01/2025 10:00 AM EDT Office Visit [facility] ADULT DENTAL [address] [place] [address] Kristen Perez documented as of this encounter Visit Diagnoses Diagnosis Type 2 diabetes mellitus without complications (CMS/[facility]) documented in this encounter Additional Health Concerns Assessment Noted Time PHQ-9 Depression Total Score: 4 03/04/20 23 2:58 PM EDT documented as of this encounter Care Teams Police Sergeant Relationship Specialty Start Date End Date Tor Crews MD [address] [place] [phone] PCP - General Internal Medicine 07/21/14 documented as of this encounter
--- OUTSIDE RECORDS SUMMARY | 2024-12-30 10:56 | XMS_ITS | Encounter Summary ---
Author Organization [employer] Address [address] [facility] 7t [place] [address] Care Team Providers Care Biomedical Electronics Technician Name Role Phone Tor Crews MD Primary Care Provide r Reason for Visit * Reason Comments Med Refill Encounter Details Date Type Department Care Team (Late st Contact Info) Description 05/23/2023 Refill [facility] MEDICINE [address] [place] [address] [phone] Tor Crews MD [address] [place], [place] [phone] Acute pain of right knee Social History [...] Description 01/20/2025 11:00 AM EDT Office Visit [facility] ADULT DENTAL [address] [place], [place] [phone] Kristen Perez 02/10/2025 1:00 PM EDT Office Visit [facility] MEDICINE [address] [place] [address] Tor Crews MD [address] [facility] [place] [address] 06/01/2025 10:00 AM EDT Office Visit [facility] ADULT D[facility]AL [address] [facility] [place] [address] Kristen Perez documented as of this encounter Visit Diagnoses Diagnosis Acute pain of right knee documented in this encounter Additional Health Concerns Assessment Noted Time PHQ-9 Depression Total Score: 4 03/04/20 23 2:58 PM EDT documented as of this encounter Care Teams Biomedical Electronics Technician Relationship Specialty Start Date End Date Tor Crews MD [address] [facility] [place] [address] PCP - General Internal Medicine 07/21/14 documented as of this encounter
--- OUTSIDE RECORDS SUMMARY | 2024-12-30 10:56 | XMS_ITS | Encounter Summary ---
Author Organization [employer] Address [address] [facility] [address] [address] [place] [address] Care Team Providers Care Gui Developer Name Role Phone Tor Crews MD Primary Care Provide r Reason for Visit * Reason Comments Med Refill Encounter Details Date Type Department Care Team ([facility] st Contact Info) Description 08/07/2023 Refill [facility] MEDICINE [address] [place], [place] [phone] Tor Crews MD [address] [place], [place] [phone] Hypertriglyceridemia Social History Tobacco Use Types Packs/Day [...] 01/20/2025 11:00 AM EDT Office Visit [facility] ADULT DENTAL [address] [place] [address] Kristen Perez 02/10/2025 1:00 PM EDT Office Visit [facility] MEDICINE [address] [place] [address] Tor Crews MD [address] [place] [address] 06/01/2025 10:00 AM EDT Office Visit [facility] ADULT DENTAL [address] [place] [address] Kristen Perez documented as of this encounter Visit Diagnoses Diagnosis Hypertriglyceridemia Pure hyperglyceridemia documented in this encounter Additional Health Concerns Assessment Noted Time PHQ-9 Depression Total Score: 4 03/04/20 23 2:58 PM EDT documented as of this encounter Care Teams Gui Developer Relationship Specialty Start Date End Date Tor Crews MD [address] [place] [address] PCP - General Internal Medicine 07/21/14 documented as of this encounter
--- OUTSIDE RECORDS SUMMARY | 2024-12-30 10:56 | XMS_ITS | Encounter Summary ---
Author Organization [employer] Address [address] [facility] 7t [place] [address] Care Team Providers Care Parquetry Floor Layer Name Role Phone Tor Crews MD Primary Care Provide r Encounter Details Date Type Department Care Team (Latest Contact Info) Description 04/26/2021 Abstract [facility] CONVERSIONS Dental, Provider, DDS Social History Tobacco [...] [facility] ADULT DENTAL [address] [place] [address] Kristen Perez 02/10/2025 1:00 PM EDT Office Visit [facility] MEDICINE [address] [place] [address] Tor Crews MD [address] [place] [address] 06/01/2025 10:00 AM EDT Office Visit [facility] ADULT DENTAL [address] [place] [address] Kristen Perez documented as of this encounter Visit Diagnoses Not on filedocumented in this encounter Care Teams Parquetry Floor Layer Relationship Specialty Start Date End Date Tor Crews MD [address] [place] [address] PCP - General Internal Medicine 07/21/14 documented as of this encounter
--- OUTSIDE RECORDS SUMMARY | 2024-12-30 10:56 | XMS_ITS | Encounter Summary ---
Author Organization [employer] Address [address] [facility] 7t [place] [address] Care Team Providers Care Utility Manager Name Role Phone Tor Crews MD Primary Care Provide r Encounter Details Date Type Department Care Team (Late st Contact Info) Description 10/30/2022 Orders Only [facility] [address] [place] [address] Mahsa Bustillos LPN Social History Tobacco Use [...] Description 01/20/2025 11:00 AM EDT Office Visit [facility] ADULT DENTAL 230 [place] [address] Kristen Perez 02/10/2025 1:00 PM EDT Office Visit [facility] [address] [place] [address] Tor Crews MD [address] [place] [address] 06/01/2025 10:00 AM EDT Office Visit [facility]ULT [facility] 230 [place] [address] Kristen Perez documented as of this encounter Visit Diagnoses Not on filedocumented in this encounter Care Teams Utility Manager Relationship Specialty Start Date End Date Tor Crews MD [address] [place] [address] PCP - General Internal Medicine 07/21/14 documented as of this encounter
--- OUTSIDE RECORDS SUMMARY | 2024-12-30 10:56 | XMS_ITS | Encounter Summary ---
Author Organization [employer] Address [address] [facility] [address] 7t [place] [address] Care Team Providers Care Home Inspector Name Role Phone Tor Crews MD Primary Care Provide r Reason for Visit * Reason Comments Med Refill Encounter Details Date Type Department Care Team (Late st Contact Info) Description 12/19/[address] [facility] MED & PEDS [address] [place], [place] [phone] Sinai Sesay MD [address] [place] [address] Social History Tobacco Use Types Packs/Day Years [...] 11:00 AM EDT Office Visit [facility] ADULT DENTAL [address] [place] [address] Kristen Perez 02/10/2025 1:00 PM EDT Office Visit [facility] MEDICINE [address] [place] [address] Tor Crews MD [address] [place] [address] 06/01/2025 10:00 AM EDT Office Visit [facility] ADULT DENTAL [address] [place] [address] Kristen Perez documented as of this encounter Visit Diagnoses Not on filedocumented in this encounter Additional Health Concerns Assessment Noted Time PHQ-9 Depression Total Score: 4 03/04/20 23 2:58 PM EDT documented as of this encounter Care Teams Home Inspector Relationship Specialty Start Date End Date Tor Crews MD [address] [place] [address] PCP - General Internal Medicine 07/21/14 documented as of this encounter
--- OUTSIDE RECORDS SUMMARY | 2024-12-30 10:56 | XMS_ITS | Encounter Summary ---
Author Organization [employer] Address [address] [facility] [address] [place] [address] Care Team Providers Care Traffic Lieutenant Name Role Phone Tor Crews MD Primary Care Provide r Reason for Visit * Reason Onset Date Comments Hospital Follow-up 10/26/2024 Encounter Details Date Type Department Care Team ([facility] st Contact Info) Description 10/26/2024 Telephone [facility] MEDICINE [address] [place], [place] [phone] Tor Crews MD [address] [place], [place] [phone] Hospital Follow-up Social History Tobacco Use Types [...] from pt requesting a HDF appt. Hospital: [facility] Date of admission: 10/20/2024 Discharge date: 10/25/2024 Diagnosed: Asthma *Send message to [facility] Clinical Care Coordinators documented in this encounter Plan of Treatment Upcoming Encounters Date Type Department Care Team (Late st Contact Info) Description 01/20/2025 11:00 AM EDT Office Visit [facility] ADULT DENTAL [address] [place] [address] Kristen Perez 02/10/2025 1:00 PM EDT Office Visit [facility] MEDICINE [address] [place] [address] Tor Crews MD [address] [place] [address] 06/01/2025 10:00 AM EDT Office Visit [facility] ADULT DENTAL [address] [place] [address] Kristen Perez documented as of this encounter Visit Diagnoses Not on filedocumented in this encounter Additional Health Concerns Assessment Noted Time PHQ-9 Depression Total Score: 4 03/04/20 23 2:58 PM EDT documented as of this encounter Care Teams Traffic Lieutenant Relationship Specialty Start Date End Date Tor Crews MD [address] [place] [address] PCP - General Internal Medicine 07/21/14 documented as of this encounter
--- OUTSIDE RECORDS SUMMARY | 2024-12-30 10:56 | XMS_ITS | Patient Health Record ---
Author Organization [facility] Address [address] [place] [address] Care Team Providers Care Court Messenger Name Role Phone Megan Bañuelos MD, Tor Primary Care Provide r Unavailable Juan M Morel Unavailable [phone] Allergies No Known Allergies Reason For Referral No Information Medications Medication SIG (Take, Route, Frequency, Duration) Notes [...] D3 25 MCG TAKE 1 TABLET BY IOAAN TH EVERY MORNING Oral for 90 Active Omeprazole 40 MG Oral for 90 A ctive Immunizations Vaccine Route Administration Date Status Comme nts Influenza Unknown 10/09/2021 Refused Social History Tobacco Use: Social History Observation Description Date Details (start date - stop date) Current Smoker NA - NA Tobacco Use/Smoking Question Answer Notes Patient is [...] drinks (0 point) Points 2 Interpretation Negative Section Notes: Smokes occ. cigs; drinks occ . alcohol Problems Problem Type SNOMED Code ICD Code Onset Dates Problem Status W/U Status Risk Notes Problem 538346462 Encounter for screening for malignant neoplasm of colon (Z12.11) Active confirmed Problem Gastritis (4129290) Gastritis (K29.70) Active confirmed Problem Esophageal reflux finding (587514854) Gastroesophageal reflux (K21.9) Active confirmed Problem Diverticulosis of colon (915861959) Diverticulosis of colon (K57.30) Active confirmed Problem 010386530 Gastroesophageal reflux disease, unspecified whether esophagitis present (K21.9) Active confirmed Plan Of Treatment Pending Test Test Name Order Date Pathology 01/25/2022 Future Test Test Name Order Date UPPER GI ENDOSCOPY 10/09/2021 COLONOSCOPY 10/09/2021 Insurance Providers Payer Name Payer Address Payer Phone Subscriber Number Group Number Insured Name Patient Relationship to Insured Coverage Start Date Coverage End Date [facility] [address] [place] [phone] [id number] CARMINA LOMAX Self - patient is the insured Medical (General) History Medical History History ICD Code GERD IDDM Hypertension Nonischemic cardiomyopathy-Johnny Nielson---seen at [facility] in [place] for ? cardiac transplant, but not on active list Sleep apnea- cpap machine Depression CHF Hyperlipidemia CKD stage 3 Asthma Pacemaker Denies OR,CVA Surgical History Surgery Date(Month/Year) Pacemaker 2008
--- OUTSIDE RECORDS SUMMARY | 2024-12-30 10:56 | XMS_ITS | Clinical Summary ---
Author Organization [facility] [employer] Address [address] [place] [address] Care Team Providers Care Outdoor Advertising Leasing Agent Name Role Phone Tor Crews MD Primary [...] mellitus without complication, unspecified whether termite treater insulin use (CMS/HCC) take 1 tablet by [...] disease, with long-term current use of insulin ([facility]) Use to test blood sugar 3 times daily 100 each 12 024 2024 Active Lancets miscIndications: Type 2 diabetes mellitus with stage 3b chronic kidney disease, with long-term current use of insulin ([facility]) Use to test blood sugar 3 times daily 100 each 024 Active Blood Glucose Monitoring Suppl (FreeStyle [place] Lite) w/Device kitIndications:T ype 2 diabetes mellitus with stage 3b chronic kidney disease, with long-term current use of insulin ([facility]) Use to test blood sugar [...] complication, with long-term current use of insulin (CMS/[facility]) INJECT 46 UNITS SUBCUTANEOUSLY AT [...] complication, with long-term current use of insulin (CMS/[facility]) INJECT PER SLIDING SCALE FOR BLOOD SUGAR [...] for a HDF He was admitted to [facility] from 10/21-10/25/2024 After he presented with worsening [...] See image in chart. -Cleaned and used [place] cary to close laceration. -ER precautions discussed. [...] a HDF after a recent admission to [facility] for a syncopal episode. Pt presented to [...] of Carvedilol, Enteresto and Spironoloactone. Followed by liquid chlorine operator who recommended to keep all his [...] titers were negative, HIV (neg 12/2012 at [facility]) , SAMEER (neg 01/03/2013 at [facility] ) , ADRIÁN level was normal. Pt is s/p ICD placement in 2008 ([employer]) Follows at the HF clinic , last seen 07/2022 Dr. Nielson recommended to Continue current neurohormonal modulation with Entresto, Daily weight monitoring and avoidance of salt loading . Continue aggressive blood pressure control. Encouraged to continue to participate in physical activity as tolerated and participate in weight loss program. He has done extremely well with medical management despite no OPERATIONS ENGINEER. He was advised to continue to follow at [facility] for heart transplant evaluation.on annual basis. Last seen 07/14/2024 He was last seen by Dr Nielson 12/01/2024 He is on: Toprol X: 12.5 mg One tablet Daily Entresto 24-26 mg BID And Lasix 40 mg once Daily Had stress test at [facility] 09/14/[address] Layla VILLASENOR [...] titers were negative, HIV (neg 12/2012 at [facility]) , SAMEER (neg 01/03/2013 at [facility] ) , ADRIÁN level was normal. Pt is s/p ICD placement in 2008 ([employer]) Follows at the HF clinic , last seen 07/2022 Dr. Nielson recommended to Continue current neurohormonal modulation with Entresto, Daily weight monitoring and avoidance of salt loading . Continue aggressive blood pressure control. Encouraged to continue to participate in physical activity as tolerated and participate in weight loss program. He has done extremely well with medical management despite no OPERATIONS ENGINEER. He was advised to continue to follow at [facility] for heart transplant evaluation.on annual basis. Last seen 07/14/2024 He was last seen by Dr Nielson 02/25/2024 He is on: Toprol X: 12.5 mg One tablet Daily Entresto 24-26 mg BID And Lasix 40 mg once Daily Had stress test at [facility] 09/14/[address] Layla VILLASENOR [...] titers were negative, HIV (neg 12/2012 at [facility]) , SAMEER (neg 01/03/2013 at [facility] ) , ADRIÁN level was normal. Pt is s/p ICD placement in 2008 ([employer]) Follows at the HF clinic , [...] extremely well with medical management despite no OPERATIONS ENGINEER. He was advised to continue to follow at [facility] for heart transplant evaluation.on annual basis. Last seen 07/14/2024 He was last seen by Dr Nielson 02/25/2024 His Carvedilol was replaced with Toprol X: 12.5 mg One tablet Daily His Entresto was lowered to 24-26 mg BID His Lasix was lowered to 40 mg once Daily by Dr Rich at [facility] Assessment & Plan (03/23/2024 11:09 AM EDT): Patient is here for a f/u He has non-ischemic cardiomyopathy diagnosed in 2008 (etiology ? NANO ? ETOH relate ? Pt gives a Hx of over 20 years of very heavy drinking. Basic blood work to r/o other etiologies: TSH 06/09/2013 was wnl, , Lyme titers were negative, HIV (neg 12/2012 at [facility]) , SAMEER (neg 01/03/2013 at [facility] ) , ADRIÁN level was normal. Pt is s/p ICD placement in 2008 ([employer]) Follows at the HF clinic , [...] extremely well with medical management despite no OPERATIONS ENGINEER. He was advised to continue to follow with Dr Rivas at [facility] for heart transplant evaluation.on annual basis. He [...] titers were negative, HIV (neg 12/2012 at [facility]) , SAMEER (neg 01/03/2013 at [facility] ) , ADRIÁN level was normal. Pt is s/p ICD placement in 2008 ([employer]) Follows at the HF clinic , last [...] extremely well with medical management despite no OPERATIONS ENGINEER. Dr Nielson recommended Follow-up echocardiogram in 1 month's time. He was advised to continue to follow with Dr Rivas at [facility] for heart transplant evaluation.on annual basis. He [...] titers were negative, HIV (neg 12/2012 at [facility]) , SAMEER (neg 01/03/2013 at [facility] ) , ADRIÁN level was normal. Pt is s/p ICD placement in 2008 ([employer]) Follows at the HF clinic , last seen 07/2022 Heart failure with reduced ejection fraction with much improved LV ejection fraction 40-45% with much improved symptoms with NYHA class 1 symptoms. Last seen by Dr. Nielson 05/12/2023 He was advised to continue to follow with Dr Rivas at [facility] for heart transplant evaluation.on annual basis. Dr. [...] extremely well with medical management despite no OPERATIONS ENGINEER. Dr Nielson recommended Follow-up echocardiogram in 1 [...] titers were negative, HIV (neg 12/2012 at [facility]) , SAMEER (neg 01/03/2013 at [facility] ) , ADRIÁN level was normal. last EF 20-25% 2017 Pt is s/p ICD placement in 2008 ([employer]) Follows at the HF clinic , last seen 07/2022 Pt tells me he has a f/u with Dr. Nielson as well He was advised to continue to keep appointment with Dr Rivas at [facility] for heart transplant evaluation. CKD stage 3 secondary to diabetes 12/26/2015 Assessment & Plan (12/07/2024 11:25 AM EST): Under the care of Nephrology, last seen 12/01/2024 Dr. Bonilla his work order sorting clerk Lab Results Component Value Date GLUCOSE 340 (H) 10/16/2024 NA 140 11/23/2024 K 4.3 11/23/2024 CO2 24 11/23/2024 CL 110 (H) 11/23/2024 BUN 17 (H) 11/23/2024 CREATININE 1.56 (H) 11/23/2024 Assessment & Plan (11/18/2024 1:39 PM EST): Under the care of Nephrology, last seen 09/03/2024 Dr. Bonilla his work order sorting clerk Lab Results Component Value Date GLUCOSE 340 (H) 10/16/2024 NA 137 10/16/2024 K 3.8 10/16/2024 CO2 20 (L) 10/16/2024 CL 107 10/16/2024 BUN 30 (H) 10/16/2024 CREATININE 1.65 (H) 10/16/2024 Will repeat Assessment & Plan (09/21/2024 12:58 PM EST): Under the care of Nephrology, last seen 09/03/2024 Dr. Bonilla his work order sorting clerk Assessment & Plan (07/27/2024 11:47 AM EDT): Under the care of Nephrology, last seen 03/05/2024 Dr. Bonilla his work order sorting clerk Assessment & Plan (03/23/2024 11:01 AM EDT): Under the care of Nephrology, last seen 03/05/2024 Dr. Bonilla his work order sorting clerk Assessment & Plan (11/25/2023 12:08 PM EST): Under the care of Nephrology, last seen 07/16/2023. Dr. Bonilla his work order sorting clerk Assessment & Plan (06/10/2023 9:25 AM EDT): Under the care of Nephrology, last seen 12/2022. I sent a message via [employer] to Dr. Bonilla his work order sorting clerk letting him know I am starting patient [...] low fat low cholesterol diet, Referred to Electrical Contacts Adjuster. RENITA Atorvastatin . Start Fenofibrate Follow up [...] a week His Metformin was restarted by Disease Management Nurse in [place] 500 mg po BID once a day [...] a week His Metformin was restarted by Disease Management Nurse in [place] 500 mg po BID once a day [...] 25 mg, His Metformin was restarted by Disease Management Nurse in [place] 500 mg po BID once a day [...] 25 mg, His Metformin was restarted by Disease Management Nurse in [place] 500 mg po BID once a day [...] 1.5 mg His Metformin was restarted by Disease Management Nurse in [place] 500 mg po BID Plan: No changes [...] a psychotherapist her name is Aj at [facility] . He used to see Dr. Colon but stopped due to lack of transportation His biggest complaint was lack of sleep. I have agreed to prescribe trazodone 100 mg po q hs prn. Obstructive sleep apnea syndrome 01/21/2013 Assessment & Plan (03/23/2024 10:59 AM EDT): Under the care of foreign broadcast specialist (Dr Rucker). [facility] 01/27/2024 Awaiting Cpap Assessment & Plan (11/25/2023 11:58 AM EST): Sleep study done on 03/08/2013 confirmed the diagnosis of moderately severe NANO. Pt reported compliance with Cpap machine And is now under the care of foreign broadcast specialist (Dr Rucker). Awaiting Cpap Assessment & Plan (05/13/2023 8:57 AM EDT): Sleep study done on 03/08/2013 confirmed the diagnosis of moderately severe NANO. Pt reported compliance with Cpap machine And is now under the care of foreign broadcast specialist (Dr Rucker). He told me his Cpap was no longer working and needed a new one He was referred back for Sleep study, to sleep clinic. Appointment scheduled for 05/16/2023 Assessment & Plan (03/04/2023 3:01 PM EDT): Sleep study done on 03/08/2013 confirmed the diagnosis of moderately severe NANO. Pt reported compliance with Cpap machine And is now under the care of foreign broadcast specialist (Dr Rucker). He tells me his Cpap is no longer working and needs a new one Plan: Sleep study, will refer to sleep clinic Cardiomyopathy 01/11/2013 Gastroesophageal reflux disease 01/11/2013 Resolved Problems Problem Noted Date Diagnosed Date Resolved Date Ingrowing nail, right great toe 10/06/2017 11/25/2023 Assessment & Plan (07/15/2023 3:25 PM EDT): Pt tells me the nurse practitioner physician assistant requested authorization from PCP to take care of his ingrown toe nail Plan: Podiatry referral Congestive heart failure 01/21/2013 Encounters Date Type Department Care Team Description 12/28/2024 Orders Only GENERIC EXTERNAL DATA DEPARTMENT Provider, Generic External Data 12/19/2024 Refill [facility] MED[facility] [address] [place] [address] Tor Crews MD Seasonal allergies 12/10/2024 1:30 PM EST Office Visit [facility] ADULT DENTAL [address] [place] [address] Navarro-Wilhelm, [place], DDS Tooth missing (Primary Dx) 12/07/2024 11:15 AM EST Office Visit [facility] MEDICINE [address] [place] [phone] Tor Crews MD Chronic systolic heart failure (CMS/HCC) (Primary Dx); Type 2 diabetes mellitus with stage 3b chronic kidney disease, with long-term current use of insulin (CMS/HCC); CKD stage 3 secondary to diabetes (CMS/HCC) 12/07/2024 Travel 12/01/2024 Telephone [facility] [address] [place] [address] Tor Crews MD FYI 11/29/2024 10:00 AM EST Office Visit [facility] ADULT DENTAL [address] [place] [address] Kristen Perez Dental calculus (Primary Dx); Dental plaque; Tartar deposits on teeth; Subgingival dental calculus; Periodontal disease; Encounter for dental examination 11/29/2024 Telephone [facility] [place] [address] Tor Crews MD Chart Prep 11/23/2024 Orders Only GENERIC EXTERNAL DATA DEPARTMENT Provider, Generic External Data 11/20/2024 Refill [facility] [place] [address] Tor Crews MD Mixed hyperlipidemia; Type 2 diabetes mellitus without complication, with long-term current use of insulin ([facility]) 11/18/2024 1:30 PM EST Office Visit [facility] [place] [address] Tor Crews MD Hospital discharge follow-up (Primary Dx); Mild intermittent asthma without complication; Essential hypertension; CKD stage 3 secondary to diabetes (CMS/HCC); Type 2 diabetes mellitus with stage 3b chronic kidney disease, with long-term current use of insulin (CMS/[facility]); Class 1 obesity due to excess calories with serious comorbidity and body mass index (BMI) of 30.0 to 30.9 in adult; Dietary counseling; Exercise counseling 11/18/2024 Travel 11/18/2024 Refill [facility] [place] [address] Tor Crews MD Type 2 diabetes mellitus without complications ([facility]/HCC) 11/12/2024 Refill [facility] [place] [address] Brooke Meraz MD Type 2 diabetes mellitus without complication, with long-term current use of insulin ([facility]/HCC) 11/11/2024 Telephone [facility] [place], [place] [phone] Tor Crews MD Chart Prep 10/26/2024 Patient Outreach [address] [address] Tor Crews MD Transition Of Care (Tcm) (HDF- scheduled and SDOH screening completed on 03/23/2024) 10/26/2024 Telephone [facility] [address] [place] [phone] Tor Crews MD Hospital Follow-up 10/21/2024 Orders Only [facility] External Provider, [facility] 10/20/2024 Refill [facility] PEDS [address] [place] [address] Tor Crews MD 10/18/[address] [address] Tor Crews MD 10/16/2024 Orders Only GENERIC EXTERNAL DATA DEPARTMENT Provider, Generic External Data 10/15/2024 Orders Only [address] [address] Arcelia Watkins ANP 10/15/2024 Refill [facility] [address] [place] [address] Tor Cerws MD Hypertriglyceridemia 10/14/2024 9:40 AM EST [facility] [address] [phone] Michelle Sosa MD Viral URI (Primary Dx); Mild intermittent asthma with acute exacerbation; Laceration of left ring finger without foreign body without damage to nail, initial encounter; Laceration of left index finger w/o foreign body w/o damage to nail, initial encounter 10/07/2024 9:20 AM EST [facility] [address] [address] Adebayo Baker MD Arthritis of right knee (Primary Dx) 10/07/[address] [address] Tor Crews MD Nurse Triage from Last [...] Description 01/20/2025 11:00 AM EDT Office Visit [facility] ADULT DENTAL [address] [place] [address] Kristen Perez 02/10/2025 1:00 PM EDT Office Visit [facility] MEDICINE [address] [place] [address] Tor Crews MD [address] [place] [address] 06/01/2025 10:00 AM EDT Office Visit [facility] ADULT DENTAL [address] [place] [address] Kristen Perez Health Maintenance Due Date Last [...] Screening 12/10/2025 12/10/2024 Eye Exam 07/02/2026 07/02/2024, 0903/2024, 07/02/2024, Additional [...] Procedure Name Priority Date/Time Associated Diagnosis Comments CRP, HIGH SENSITIVITY Routine 12/28/2024 9:13 AM EST SED RATE BY MODIFIED WESTERGREN Routine 12/28/2024 9:13 AM EST VITAMIN B12/FOLATE, SERUM PANEL Routine 12/28/2024 9:13 AM EST TSH W/REFLEX TO FT4 Routine 12/28/2024 9 :13 AM EST CBC WITH AUTO DIFFERENTIAL Routine 12/28/2024 9:13 AM EST CREATINE KINASE, TOTAL Routine 9:13 AM EST MAGNESIUM Routine 12/28/2024 9:13 AM EST COMPREHENSIVE METABOLIC PANEL Routine 12/28/2024 9:13 AM EST NO CHARGE VISIT Routine 12/10/2024 1:30 PM EST Tooth missing POCT GLYCATED HEMOGLOBIN, TOTAL Routine 12/07/2024 11:21 AM EST Type 2 diabetes mellitus with stage 3b chronic kidney disease, with long-term current use of insulin ([facility]) POCT GLUCOSE Routine 12/07/2024 11:15 AM EST Type 2 diabetes mellitus with stage 3b chronic kidney disease, with long-term current use of insulin ([facility]) COMPREHENSIVE PERIODONTAL EVALUATION - NEW OR ESTABLISHED [...] Relevant to Health Maintenance Results * Vitamin B12 (Cobalamin) and Folate Panel, Serum (12/28/2024 9:13 AM EST) Vitamin B12 500 200 - 900 pg/mL [facility] Comment:NORMAL 200-900 PG/ML INDETERMINATE 160-199 PG/ML DEFICIENT < 160 PG/ML Folate 8.8 > or = 4.0 ng/mL [facility] Comment:Reference Values:> o r = 4.0 ng/mL< 4.0 ng/mL suggests folate deficiency Methotrexate, aminopterin and folinic acid(leucovorin) are chemotherapeutic agents whose molecularstructures are similar to folate; therefore, the Architectfolate assay cannot be used for patients using these drugs. 12/28/2024 9:13 AM EST 12/28/2024 6:09 PM EST us Generic External Data Provider LAB BLOOD ORDERAB LES Final Result [facility] [address] [place] [phone] * TSH with Reflex to Free T4 (12/28/2024 9:13 AM EST) TSH reflex Free T4 1.98 0.32 - 4.0 uIU/mL [facility] 12/28/2024 9:13 AM EST 12/28/2024 6:09 PM EST us Generic External Data Provider LAB BLOOD ORDERAB LES Final Result [facility] [address] [place] [address] [phone] * CBC auto differential (12/28/2024 9:13 AM EST) Only the most recent of3 resultswithin the time period is included. White Blood Count 6.8 4.8 - 10.8 X10*3/uL [facility] Red Blood Count 5.10 4.60 - 5.80 X10*6/uL [facility] Hemoglobin 15.0 14.0 - 18.0 g/dl [facility] Hematocrit 43.1 42.0 - 52.0 % [facility] Mean Corpuscular Volume 84.5 80.0 - 98.0 fL [facility] Mean Corpuscular Hemoglobin 29.4 27.0 - 33.0 pg [facility] Mean Corpuscular HGB Conc 34.8 31.0 - 36.0 g/dl [facility] Red Cell Distribution Width 13.3 11.0 - 16.0 % [facility] Platelet Count 215 160 - 400 X10*3/uL [facility] Mean Platelet Volume 11.2 9.4 - 12.4 fL [facility] Neutrophils Percent Auto 68.7 45 - 73 % [facility] Imm Gran Pct Auto 0.3 0.0 - 0.4 % [facility] Lymphocytes Percent Auto 21.8 20 - 40 % [facility] Monocytes Percent Auto 6.3 2 - 11 % [facility] Eosinophils Percent Auto 2.5 0 - 4 % [facility] Basophils Percent Auto 0.4 0 - 2 % [facility] NRBC Pct Auto 0.0 0.0 - 0.2 /100WBC [facility] Neutrophils Absolute Auto 4.7 2.0 - 8.3 x10*3/uL [facility] Imm Gran Abs Auto 0.02 0.00 - 0.03 X10*3/uL [facility] Lymphocytes Absolute Auto 1.5 1.2 - 4.9 X10*3/uL [facility] Monocytes Absolute Auto 0.4 0.1 - 1.2 X10*3/uL [facility] Eosinophils Absolute Auto 0.2 0.0 - 0.4 X10*3/uL [facility] Basophils Absolute Auto 0.0 0.0 - 0.2 X10*3/uL [facility] NRBC Abs Auto 0.000 0.0 - 0.012 X10*3/uL [facility] 12/28/2024 9:13 AM EST 12/28/2024 6:09 PM EST Generic External Data Provider LAB BLOOD ORDERAB LES Final Result Performing Organization Address City/[facility] Co de Phone Number [facility] [address] [place] [phone] * Sed Rate by Modified Westergren (12/28/2024 9:13 AM EST) Erythrocyte Sedimentation Rate 6 0 - 15 MM/HR [facility] Comment:Patients with polycy themia and many hemoglobin abnormalitiesmay have depressed sed rates whereas patients with anemiamay have elevated sed rates. 12/28/2024 9:13 AM EST 12/28/2024 6:09 PM EST Generic External Data Provider LAB BLOOD ORDERAB LES Final Result Performing Organization Address [facility] Co de Phone Number [facility] [address] [place] [phone] * Magnesium (12/28/2024 9:13 AM EST) Magnesium 2.3 1.6 - 2.6 mg/dL [facility] 12/28/2024 9:13 AM EST 12/28/2024 6:09 PM EST us Generic External Data Provider LAB BLOOD ORDERAB LES Final Result Performing Organization Address City/[facility] Co de Phone Number [facility] [address] [place] [address] [phone] * Creatine Kinase, Total (12/28/2024 9:13 AM EST) Creatine Kinase Total 171 38 - 174 U/L [facility] 12/28/2024 9:13 AM EST 12/28/2024 6:09 PM EST [email or web address] External Data Provider LAB BLOOD ORDERAB LES Final Result Performing Organization Address [facility] Phone Number [facility] [address] [place] [address] [phone] * (ABNORMAL) Comprehensive Metabolic Panel (12/28/2024 9:13 AM EST) Pathologist [facility] Sodium 139 135 - 145 mmol/L [facility] Potassium 4.2 3.3 - 5.1 mmol/L [facility] Chloride 105 96 - 108 mmol/L [facility] Carbon Dioxide 23 22 - 29 mmol/L [facility] Anion Gap 15 12 - 20 [facility] Urea Nitrogen (BUN) 25(H) 9 - 16 mg/dL [facility] Creatinine, Serum 1.63(H) 0.5 - 1.4 mg/dL [facility] Estimated Glomerular Filt Rate 44 [facility] Comment:Chronic Kidney Disea se: Estimated GFR < 60 mL/min/1.88l2Vylkch Kidney Disease: Estimated GFR < 15 mL/min/1.73m2 Glucose 239(H) 60 - 115 mg/dL [facility] Calcium 9.5 8.4 - 10.2 mg/dL [facility] Bilirubin, Total 0.5 0.0 - 1.0 mg/dL [facility] Aspartate Amino Transferase 29 5 - 37 U/L [facility] Alanine Aminotransferase 32 0 - 40 U/L [facility] Total Protein 7.6 6.5 - 8.0 g/dL [facility] Albumin Level 4.4 3.5 - 5.0 g/dL [facility] Alkaline Phosphatase 64 39 - 117 U/L [facility] 12/28/2024 9:13 AM EST 12/28/2024 6:09 PM EST Generic External Data Provider LAB BLOOD ORDERAB LES Final Result [facility] [address] [place] [phone] * (ABNORMAL) POCT HGB A1C (12/07/2024 11:21 [...] Vitamin D 25-OH Total 31.5 >30 ng/mL [facility] Comment:Health Based Referen ce Values*< 20 ng/mL [id number] ng/mL Insufficient> 30 ng/mL Sufficient*Rosa TIAN. N [...] ORDERAB LES Final Result Performing Organization Address [facility] Co de Phone Number [facility] [address] [place] [phone] * (ABNORMAL) Creatinine, Serum (11/23/2024 10:37 AM EST) Creatinine, Serum 1.56(H) 0.5 - 1.4 mg/dL [facility] Estimated Glomerular Filt Rate 47 [facility] Comment:Chronic Kidney Disea se: Estimated GFR < 60 mL/min/1.23z7Faetzn Kidney Disease: Estimated GFR < 15 mL/min/1.73m2 11/23/2024 10:3 7 AM EST 11/23/2024 10:37 AM EST Generic External Data Provider LAB BLOOD ORDERAB LES Final Result Performing Organization Address [facility] Co de Phone Number [facility] [address] [place] [phone] * (ABNORMAL) BUN (Blood Urea Nitrogen) (11/23/2024 10:37 AM EST) Urea Nitrogen (BUN) 17(H) 9 - 16 mg/dL [facility] 11/23/2024 10:3 7 AM EST 11/23/2024 10:37 AM EST Generic External Data Provider LAB BLOOD ORDERAB LES Final Result Performing Organization Address [facility] de Phone Number [facility] [address] [place] [address] [phone] * PTH, Intact Without Calcium (11/23/2024 10:37 AM EST) Parathyroid Hormone, Intact 18.6 8.7 - 77.1 pg/mL [facility] 11/23/2024 10:3 7 AM EST 11/23/2024 10:37 AM EST Generic External Data Provider LAB BLOOD ORDERAB LES Final Result Performing Organization Address [facility] Phone Number [facility] [address] [place] [address] [phone] * (ABNORMAL) Calcium (11/23/2024 10:37 AM EST) Calcium 10.3(H) 8.4 - 10.2 mg/dL [facility] 11/23/2024 10:3 7 AM EST 11/23/2024 10:37 AM EST Generic External Data Provider LAB BLOOD ORDERAB LES Final Result Performing Organization Address [facility] de Phone Number [facility] [address] [place] [address] [phone] * (ABNORMAL) Electrolyte Panel (11/23/2024 10:37 AM EST) Sodium 140 135 - 145 mmol/L [facility] Potassium 4.3 3.3 - 5.1 mmol/L [facility] Chloride 110(H) 96 - 108 mmol/L [facility] Carbon Dioxide 24 22 - 29 mmol/L [facility] Anion Gap 10(L) 12 - 20 [facility] 11/23/2024 10:3 7 AM EST 11/23/2024 10:37 AM EST us Generic External Data Provider LAB BLOOD ORDERAB LES Final Result [facility] [address] [facility] [place] [address] [phone] * XR Chest 2 Views (10/23/2024 3:13 PM EST) Only the most recent of2 resultswithin the time period is included. Anatomical Region Laterality Modality Chest Radiographic Fabiana ging 10/23/2024 3:13 PM EST Narrative 10/23/2024 3:14 PM EST ? [facility] ?[address] ?[place] [address] ?XRay Report ? Signed ? Patient: Godinez Godinez,Ian ?MR#: [id number] ?? [id number] ? : 1970 ?Acct:[id number] ? Age/Sex: 54 / M ?ADM Date: 10/21/24 ? Loc: HO.S3 ?346-1 ? Attending Dr: Nic Avery DO ? Ordering Physician: Nic Avery DO ?? Date of Service: 10/23/24 ?? Procedure(s): XR chest 2V ?? Accession Number(s): [id number] ? cc: Tor Villela MD; Nic Avery [...] MD in OV> ? 10/23/24 1514 ? DD/DT: 10/23/ 1513 ? TD/TT: 10/23/ 1513 ? Seat Joiner Chainstitch: ? Procedure Note Donotuseinterpreter, Image - 10/23/[address] [address] XRay Report Signed Patient: Ian HernandezMR#: [id number] : 1970Acct:[id number] Age/Sex: 54 / MADM Date: 10/21/24 [facility]: [facility] 346-[address]: Nic Avery DO Ordering Physician: Nic Avery DO Date of Service: 10/23/24 Procedure(s): XR chest 2V Accession Number(s): [id number] cc: Tor Villela MD; Nic Avery DO [...] 10/23/24 1514 DD/ 1513 TD/TT: 10/23/24 1513 Seat Joiner Chainstitch: us [facility] External Provider IMG XR PROCEDURES Edited Result - Final * (ABNORMAL) Glucose, Whole Blood (10/16/2024 1:10 PM EST) Glucose, Whole Blood 340(H) 60 - 115 mg/dL [facility] Comment:METER #: [id number] 10/16/2024 1:10 PM EST 10/16/2024 1:15 PM EST Generic External Data Provider LAB BLOOD ORDERAB LES Final Result [facility] [address] [place] [phone] * High Sensitivity Troponin I (10/16/2024 12:21 PM EST) Pathologist [facility] TROPONIN I HIGH SENSITIVITY 5.1 <3.5 - 35.0 ng/L [facility] Comment:The [place] high sens itivity Troponin-I results should beused in conjunction with other diagnostic information suchas ECG, clinical observations and information, and patientsymptoms to aid in the diagnosis of [place]. 10/16/2024 12:2 1 PM EST 10/16/2024 12:24 PM EST us Generic External Data Provider LAB BLOOD ORDERAB LES Final Result [facility] [address] [place] [address] [phone] * SARS-CoV-2 RNA, Influenza A/B, and RSV RNA, Ql NAAT (10/16/2024 12:21 PM EST) [facility] Influenza A PCR NEGATIVE Negative [facility] Influenza B PCR NEGATIVE Negative [facility] Resp Syncy Virus RNA Qual PCR NEGATIVE Negative [facility] SARS COV2 PCR NEGATIVE Negative [facility] Comment:All test results mus t [...] use by authorized laboratories.Testing performed on the [employer] GeneXpert utilizingreal-time RT-PCR.All SARS CoV2 and positive influenza A/B results arereported to [facility]. 10/16/2024 12:2 1 PM EST 10/16/2024 12:24 PM EST us Generic External Data Provider LAB MICROBIOLOGY - GENERAL ORDERABLES Final Result Performing Organization Address [facility]/ZIP Co de Phone Number [facility] [address] [place] [phone] * Hepatic Function Panel (10/16/2024 12:21 PM EST) Pathologist [facility] Bilirubin, Total 0.3 0.0 - 1.0 mg/dL [facility] Bilirubin, Direct 0.1 0.0 - 0.5 mg/dL [facility] Aspartate Amino Transferase 19 5 - 37 U/L [facility] Alanine Aminotransferase 23 0 - 40 U/L [facility] Total Protein 7.1 6.5 - 8.0 g/dL [facility] Albumin Level 4.0 3.5 - 5.0 g/dL [facility] Alkaline Phosphatase 73 39 - 117 U/L [facility] 10/16/2024 12:2 1 PM EST 10/16/2024 12:24 PM EST Generic External Data Provider LAB BLOOD ORDERAB LES Final Result Performing Organization Address [facility] Co de Phone Number [facility] [address] [place] [phone] * (ABNORMAL) Basic Metabolic Panel (10/16/2024 12:21 PM EST) [facility] Sodium 137 135 - 145 mmol/L [facility] Potassium 3.8 3.3 - 5.1 mmol/L [facility] Chloride 107 96 - 108 mmol/L [facility] Carbon Dioxide 20(L) 22 - 29 mmol/L [facility] Anion Gap 14 12 - 20 [facility] Urea Nitrogen (BUN) 30(H) 9 - 16 mg/dL [facility] Creatinine, Serum 1.65(H) 0.5 - 1.4 mg/dL [facility] Creatinine Clr Calc Pharmacy 55.6 [facility] Comment:eGFR (calculated fro m the MDRD study equation) and eCrCl(calculated from the Cockcroft-Gault equation) are based ondifferent parameters and may not yield comparable results.If eCrCl result is absurd, please check patient'sheight/weight. Estimated Glomerular Filt Rate 44 [facility] Comment:Chronic Kidney Disea se: Estimated GFR < 60 mL/min/1.14j5Mlvlvy Kidney Disease: Estimated GFR < 15 mL/min/1.73m2 Glucose 339(H) 60 - 115 mg/dL [facility] Calcium 8.8 8.4 - 10.2 mg/dL [facility] 10/16/2024 12:2 1 PM EST 10/16/2024 12:24 PM EST us Generic External Data Provider LAB BLOOD ORDERAB LES Final Result Performing Organization Address City/State/[facility] Co de Phone Number [facility] [address] [place] [phone] * Laceration Repair (10/14/2024 10:20 AM EST) Narrative Michelle Sosa MD - 10/14/2024 10:20 AM EST Michelle Sosa MD ? 10/14/2024 11:08 AM Laceration Repair Date/Time: 10/14/2024 10:20 AM Performed by: Michelle Sosa MD Authorized by: Michelle Sosa MD ?? Consent: ??Consent obtained: ??Verbal ??Consent given by: ??Patient ??Risks, benefits, and alternatives were discussed: yes ?Risks discussed: ??Pain ??Alternatives discussed: ??No treatment [place] protocol: ??Procedure explained and questions answered to [...] AM EST) Influenza B Negative Negative, Indeterminate [facility] Swab 10/14/2024 9:52 AM EST Michelle Sosa MD POINT OF CARE TEST ENTER/E DIT ORDERABLES Final Result Performing Organization Address [facility]/ZIP Co de Phone Number [facility] [address] [place] [phone] * Influenza A (ID NOW Rapid Molecular) (10/14/2024 9:52 AM EST) Influenza A Negative Negative, Indeterminate [facility] Swab 10/14/2024 9:52 AM EST Result [facility] Michelle Sosa MD POINT OF CARE TEST ENTER/E DIT ORDERABLES Final Result Performing Organization Address [facility]/ZIP Co de Phone Number [facility] [address] [place] [address] [phone] * POCT Rapid COVID Ag (10/14/2024 9:52 AM EST) Rapid COVID Ag Negative [facility] Swab 10/14/2024 9:52 AM EST Michelle Sosa MD POINT OF CARE TEST ENTER/E DIT ORDERABLES Final Result Performing Organization Address [facility]/ZIP Co de Phone Number [facility] [address] [place] [phone] * (ABNORMAL) Lipid Panel with Reflex to Direct LDL (09/09/2023 7:57 AM EST) Triglycerides 448(H) <150 mg/dL [facility] Comment:Desirable Triglyceri de: less than 150 mg/dLBorderline High Triglyceride 150-199 mg/dLHigh Triglyceride: 200-499 mg/dLVery High Triglyceride: greater than or equal to 5OO mg/dL Cholesterol 204(H) <200 mg/dL [facility] Comment:Desirable Cholestero l: less than 200 mg/dLBorderline High Cholesterol: 200-239 mg/dLHigh Cholesterol: greater than 239 mg/dL LDL Cholesterol Calculated TNP <100 mg/dL [facility] Comment:Unable to calculate the LDL. The formula of Friedwald,Shepherd, and Pearl is only valid if the triglycerides areless than 400 mg/dl. HDL Cholesterol 34(L) >40 mg/dL [facility] Comment:Desirable HDL: great er than 40 mg/dL Note: This HDL assay may give artificially low results in patients with liver disease. Blood 09/09/2023 7:57 AM EST 09/09/2023 7:57 AM EST Tor Bañuelos MD LAB BLOOD ORDERABLES Final Result [facility] [address] [place] [address] [phone] * Hm Colonoscopy (01/25/2022) Colonoscopy Normal Normal 01/25/2022 Narrative Radha Alves - 01/25/2022 2:56 PM EDT Recommended 10 year follow up ( see scanned notes) Historical Provider HEALTH MAINTENANCE Edited Result - Final from Last 3 Months or Most Recently Relevant to Health Maintenance Insurance [facility] CARE D[facility]AL - [facility] Care Teams Outdoor Advertising Leasing Agent Relationship Specialty Start Date End Date Tor Crews MD [address] [place] [phone] PCP - General Internal Medicine 07/21/14
--- OUTSIDE RECORDS SUMMARY | 2024-12-30 10:57 | XMS_ITS | Encounter Summary ---
Author Organization [employer] Address [address] [place] [address] Care Team Providers Care Granulator Name Role Phone Tor Crews MD Primary Care Provide r Reason for Visit * Reason Comments Diabetes Encounter Details Date Type Department Care Team ([facility] st Contact Info) Description 12/07/2024 11:15 AM EST Office Visit [facility] [address] [place], [place] [phone] Tor Crews MD [address] [place], [place] [phone] Chronic systolic heart failure (CMS/HCC) (Primary Dx); [...] disease, with long-term current use of insulin ([facility]) Pt here for a f/u Blood glucose log shows BG ranging between 99 296 Hgb A1c 12/07/2024: 8.7 from 9.2 from 9.7 Microalbumin level 12/25/2021 was 5 Eye exam: 01/23/2022 Currently on a regimen of: Lantus 46 units sc qpm, Humalog sliding scale, Jardiance 25 mg, Ozempic 0.5 once a week His Metformin was restarted by Textile Machine Maintenance Mechanic in [place] 500 mg po BID once a day [...] titers were negative, HIV (neg 12/2012 at [facility] , SAMEER (neg 01/03/2013 at [facility] ) , ADRIÁN level was normal. Pt is s/p ICD placement in 2008 ([employer]) Follows at the HF clinic , last seen 07/2022 Dr. Nielson recommended to Continue current neurohormonal modulation with Entresto, Daily weight monitoring and avoidance of salt loading . Continue aggressive blood pressure control.Encouraged to continue to participate in physical activity as tolerated and participate in weight loss program. He has done extremely well with medical management despite no [employer]. He was advised to continue to follow at [facility] for heart transplant evaluation.on annual basis. Last seen 07/14/2024 He was last seen by Dr Nielson 12/01/2024 He is on: Toprol X: 12.5 mg One tablet Daily Entresto 24-26 mg BID And Lasix 40 mg once Daily Had stress test at [facility] 09/14/[address] Rich ECHO 08/05/2024 showed a normal EF improved from previous one. 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 Bonilla his front desk person Lab Results Component Value Date GLUCOSE 340 [...] Nephrology, last seen 12/01/2024 Dr. Bonilla his front desk person Lab Results Component Value Date GLUCOSE 340 (H) 10/16/2024 NA 140 11/23/2024 K 4.3 11/23/2024 CO2 24 11/23/2024 CL 110 (H) 11/23/2024 BUN 17 (H) 11/23/2024 CREATININE 1.56 (H) 11/23/2024 * Assessment & Plan Note - Tor Bañuelos MD - 12/07/2024 11:25 AM EST Associated Problem(s): Type 2 diabetes mellitus with stage 3b chronic kidney disease, with long-term current use of insulin ([facility]) Pt here for a f/u Blood glucose log shows BG ranging between 99 296 Hgb A1c 12/07/2024: 8.7 from 9.2 from 9.7 Microalbumin level 12/25/2021 was 5 Eye exam: 01/23/2022 Currently on a regimen of: Lantus 46 units sc qpm, Humalog sliding scale, Jardiance 25 mg, Ozempic 0.5 once a week His Metformin was restarted by [employer] in [place] 500 mg po BID once a day [...] titers were negative, HIV (neg 12/2012 at [facility] , SAMEER (neg 01/03/2013 at [facility] [place] , ADRIÁN level was normal. Pt is s/p ICD placement in 2008 ([employer]) Follows at the HF clinic , last seen 07/2022 Dr. Nielson recommended to Continue current neurohormonal modulation with Entresto, Daily weight monitoring and avoidance of salt loading . Continue aggressive blood pressure control.Encouraged to continue to participate in physical activity as tolerated and participate in weight loss program. He has done extremely well with medical management despite no SAL[employer]. He was advised to continue to follow at [facility] for heart transplant evaluation.on annual basis. Last seen 07/14/2024 He was last seen by Dr Nielson 12/01/2024 He is on: Toprol X: 12.5 mg One tablet Daily Entresto 24-26 mg BID And Lasix 40 mg once Daily Had stress test at [facility] 09/14/[address] Rich ECHO 08/05/2024 showed a normal EF improved from previous one. documented in this encounter Plan of Treatment Upcoming Encounters Date Type Department Care Team (Late st Contact Info) Description 01/20/2025 11:00 AM EDT Office Visit [facility]ULT D[facility] [address] [place] [address] Kristen Perez 02/10/2025 1:00 PM EDT Office Visit [facility] [address] [place] [address] Tor Crews MD [address] [place] [address] 06/01/2025 10:00 AM EDT Office Visit [facility] [address] [place] [address] Kristen Perez documented as of this encounter [...] documented as of this encounter Care Teams Granulator Relationship Specialty Start Date End Date Tor Crews MD [address] [place] [address] PCP - General Internal Medicine 07/21/14 documented as of this encounter
--- OUTSIDE RECORDS SUMMARY | 2024-12-30 10:57 | XMS_ITS | Encounter Summary ---
Author Organization [employer] Address [address] [facility] [address] [place] [address] Care Team Providers Care Button Sewing Machine Operator Name Role Phone Tor Crews MD Primary Care Provide r Reason for Visit * Reason Onset Date Comments FYI 12/01/2024 Encounter Details Date Type Department Care Team ([facility] st Contact Info) Description 12/01/2024 Telephone [facility] [address] [place], [place] [phone] Tor Crews MD [address] [place], [place] [phone] FYI Social History Tobacco Use Types Packs/Day [...] 11:00 AM EDT Office Visit [facility] ADULT D[facility] [address] [place] [address] Kristen Perez 02/10/2025 1:00 PM EDT Office Visit [facility] [address] [place] [address] Tor Crews MD [address] [place] [address] 06/01/2025 10:00 AM EDT Office Visit [facility] [address] [place] [address] Kristen Perez documented as of this encounter Visit Diagnoses Not on filedocumented in this encounter Additional Health Concerns Assessment Noted Time PHQ-9 Depression Total Score: 4 03/04/20 23 2:58 PM EDT documented as of this encounter Care Teams Button Sewing Machine Operator Relationship Specialty Start Date End Date Tor Crews MD [address] [place] [address] PCP - General Internal Medicine 07/21/14 documented as of this encounter
--- OUTSIDE RECORDS SUMMARY | 2024-12-30 10:57 | XMS_ITS | Clinical Summary ---
Author Organization [facility] Address [address] [place] [id number] Phone Care Team Providers Care Customer Success Director Name Role Phone Tor Guzman MD Primary [...] to 64 Years) Completed 04/17/[address]23 [place] [id number] [facility] ([id number]) [facility] ([id number]) Care Teams Customer Success Director Relationship Specialty Start Date End Date Tor Guzman MD PCP - General 11/06/20
--- OUTSIDE RECORDS SUMMARY | 2024-12-30 10:57 | XMS_ITS | Encounter Summary ---
Author Organization [employer] Address [address] [place] [address] Care Team Providers Care Facilities Planner Name Role Phone Tor Crews MD Primary [...] Description 01/20/2025 11:00 AM EDT Office Visit [facility] [address] [place] [address] Kristen Perez 02/10/2025 1:00 PM EDT Office Visit [facility] [address] [place] [address] Tor Crews MD [address] [place] [address] 06/01/2025 10:00 AM EDT Office Visit [facility] [address] [place] [address] Kristen Perez documented as of this encounter Visit Diagnoses Not on filedocumented in this encounter Additional Health Concerns Assessment Noted Time PHQ-9 Depression Total Score: 4 03/04/20 23 2:58 PM EDT documented as of this encounter Care Teams Facilities Planner Relationship Specialty Start Date End Date Tor Crews MD [address] [place] [address] PCP - General Internal Medicine 07/21/14 documented as of this encounter
--- OUTSIDE RECORDS SUMMARY | 2024-12-30 10:57 | XMS_ITS | Clinical Summary ---
Author Organization [facility] Address [address] [place] [address] Phone Care Team Providers Care Buck Presser Name Role Phone Tor Villela MD Primary Care Provi pepe Social History Tobacco Use Types Packs/Day Years Used Date Smoking Tobacco: Never Assessed Sex and Gender Information Value Date Recorded Sex Assigned at Not on file Legal Sex Male 4:33 AM EST Gender Identity Not on file Sexual Orientation Not on file Plan of Treatment Upcoming Encounters Date Type Department Care Team ([facility] Contact Info) Description 02/01/2025 9:45 AM EDT Consult Orthopedic Surgery - [place] [phone] [phone] Tod Little, DPM [address] [address] Health Maintenance Due Date Last Done Comments [...] [facility] MEDICARE Member Subscriber Plan / Payer (Ef fective 2019-Present) Name:Ian Godinez Relation to Subscriber:Self Name:Ian Godinez Payer ID:[id number] Group ID:[id number] Type:Not on file Address: [address] [place] [address] Care Teams Buck Presser Relationship Specialty Start Date End Date Tor Villela MD [address] [place] [address] [place] [phone] PCP - General 07/29/24
--- OUTSIDE RECORDS SUMMARY | 2024-12-30 10:57 | XMS_ITS | Encounter Summary ---
Author Organization [facility] Address [address] [place] [address] Care Team Providers Care Veterans Rehabilitation Counselor Name Role Phone Tor Crews MD Primary Care Provide r Encounter Details Date Type Department Care Team (Late st Contact Info) Description 11/28/2022 Abstract [facility] MED[facility]INE [address] [place] [phone] Tor Crews MD [address] [place], [place] [phone] Social History Tobacco Use Types Packs/Day Years [...] Description 01/20/2025 11:00 AM EDT Office Visit [facility] ADULT DENTAL [address] [place], [place] [phone] Kristen Perez 02/10/2025 1:00 PM EDT Office Visit [facility] [address] [place], [place] [phone] Tor Crews MD [address] [place] [address] 06/01/2025 10:00 AM EDT Office Visit [facility] ADULT DENT[facility] [address] [place], [place] [phone] Kristen Perez documented as of this encounter Visit Diagnoses Not on filedocumented in this encounter Care Teams Veterans Rehabilitation Counselor Relationship Specialty Start Date End Date Tor Crews MD [address] [place] [address] PCP - General Internal Medicine 07/21/14 documented as of this encounter
--- OUTSIDE RECORDS SUMMARY | 2024-12-30 10:57 | XMS_ITS | Encounter Summary ---
Author Organization [employer] Address [address] [facility] [address] [place] [address] Care Team Providers Care Suture Winder Hand Name Role Phone Tor Crews MD Primary Care Provide r Encounter Details Date Type Department Care Team (Late st Contact Info) Description 12/28/2024 Orders Only GENERIC EXTERNAL DATA [...] Description 01/20/2025 11:00 AM EDT Office Visit [facility] ADULT DENTAL [address] [place] [address] Kristen Perez 02/10/2025 1:00 PM EDT Office Visit [facility] MEDICINE [address] [place], [place] [phone] Tor Crews MD [address] [place] [address] 06/01/2025 10:00 AM EDT Office Visit [facility] ADULT DENTAL [address] [place] [address] Kristen Perez Pending Results Name Type Priority Associated Diagnoses Date /Time CRP, HIGH SENSITIVITY Lab Routine 01/2025 9:13 AM EST documented as of this encounter Procedures Procedure Name Priority Date/Time Associated Diagnosis Comments CRP, HIGH SENSITIVITY Routine 12/28/2024 9:13 AM EST VITAMIN B12/FOLATE, SERUM PANEL Routine 12/28/2024 9:13 AM EST TSH W/REFLEX TO FT4 Routine 12/28/2024 9 :13 AM EST CBC WITH AUTO DIFFERENTIAL Routine 12/28/2024 9:13 AM EST SED RATE BY MODIFIED WESTERGREN Routine 12/28/2024 9:13 AM EST MAGNESIUM Routine 12/28/2024 9:13 AM EST CREATINE KINASE, TOTAL Routine 9:13 AM EST COMPREHENSIVE METABOLIC PANEL Routine 12/28/2024 9:13 AM EST documented in this encounter Results * Sed Rate by Modified Jessica (12/28/2024 9:13 AM EST) Erythrocyte Sedimentation Rate 6 0 - 15 MM/HR [facility] Comment:Patients with polycy themia and many hemoglobin abnormalitiesmay have depressed sed rates whereas patients with anemiamay have elevated sed rates. 12/28/2024 9:13 AM EST 12/28/2024 6:09 PM EST Generic External Data Provider LAB BLOOD ORDERAB LES Final Result Performing Organization Address [facility] Co de Phone Number [facility] [address] [place] [phone] * Vitamin B12 (Cobalamin) and Folate Panel, Serum (12/28/2024 9:13 AM EST) Vitamin B12 500 200 - 900 pg/mL [facility] Comment:NORMAL 200-900 PG/ML INDETERMINATE 160-199 PG/ML DEFICIENT < 160 PG/ML Folate 8.8 > or = 4.0 ng/mL [facility] Comment:Reference Values:> o r = 4.0 ng/mL< 4.0 ng/mL suggests folate deficiency Methotrexate, aminopterin and folinic acid(leucovorin) are chemotherapeutic agents whose molecularstructures are similar to folate; therefore, the Architectfolate assay cannot be used for patients using these drugs. 12/28/2024 9:13 AM EST 12/28/2024 6:09 PM EST Generic External Data Provider LAB BLOOD ORDERAB LES Final Result Performing Organization Address [facility] Co de Phone Number [facility] [address] [place] [phone] * TSH with Reflex to Free T4 (12/28/2024 9:13 AM EST) TSH reflex Free T4 1.98 0.32 - 4.0 uIU/mL [facility] 12/28/2024 9:13 AM EST 12/28/2024 6:09 PM EST us Generic External Data Provider LAB BLOOD ORDERAB LES Final Result [facility] [address] [place] [address] [phone] * CBC auto differential (12/28/2024 9:13 AM EST) White Blood Count 6.8 4.8 - 10.8 X10*3/uL [facility] Red Blood Count 5.10 4.60 - 5.80 X10*6/uL [facility] Hemoglobin 15.0 14.0 - 18.0 g/dl [facility] Hematocrit 43.1 42.0 - 52.0 % [facility] Mean Corpuscular Volume 84.5 80.0 - 98.0 fL [facility] Mean Corpuscular Hemoglobin 29.4 27.0 - 33.0 pg [facility] Mean Corpuscular HGB Conc 34.8 31.0 - 36.0 g/dl [facility] Red Cell Distribution Width 13.3 11.0 - 16.0 % [facility] Platelet Count 215 160 - 400 X10*3/uL [facility] Mean Platelet Volume 11.2 9.4 - 12.4 fL [facility] Neutrophils Percent Auto 68.7 45 - 73 % [facility] Imm Gran Pct Auto 0.3 0.0 - 0.4 % [facility] Lymphocytes Percent Auto 21.8 20 - 40 % [facility] Monocytes Percent Auto 6.3 2 - 11 % [facility] Eosinophils Percent Auto 2.5 0 - 4 % [facility] Basophils Percent Auto 0.4 0 - 2 % [facility] NRBC Pct Auto 0.0 0.0 - 0.2 /100WBC [facility] Neutrophils Absolute Auto 4.7 2.0 - 8.3 x10*3/uL [facility] Imm Gran Abs Auto 0.02 0.00 - 0.03 X10*3/uL [facility] Lymphocytes Absolute Auto 1.5 1.2 - 4.9 X10*3/uL [facility] Monocytes Absolute Auto 0.4 0.1 - 1.2 X10*3/uL [facility] Eosinophils Absolute Auto 0.2 0.0 - 0.4 X10*3/uL [facility] Basophils Absolute Auto 0.0 0.0 - 0.2 X10*3/uL [facility] NRBC Abs Auto 0.000 0.0 - 0.012 X10*3/uL [facility] 12/28/2024 9:13 AM EST 12/28/2024 6:09 PM EST us Generic External Data Provider LAB BLOOD ORDERAB LES Final Result Performing Organization Address [facility] Co ia Phone Number [facility] [address] [place] [phone] * Creatine Kinase, Total (12/28/2024 9:13 AM EST) Creatine Kinase Total 171 38 - 174 U/L [facility] 12/28/2024 9:13 AM EST 12/28/2024 6:09 PM EST us Generic External Data Provider LAB BLOOD ORDERAB LES Final Result Performing Organization Address [facility] Co de Phone Number [facility] [address] [place] [phone] * Magnesium (12/28/2024 9:13 AM EST) Magnesium 2.3 1.6 - 2.6 mg/dL [facility] 12/28/2024 9:13 AM EST 12/28/2024 6:09 PM EST us Generic External Data Provider LAB BLOOD ORDERAB LES Final Result Performing Organization Address [facility]/State/ZIP Co de Phone Number [facility] [address] [place] [address] [phone] * (ABNORMAL) Comprehensive Metabolic Panel (12/28/2024 9:13 AM EST) Sodium 139 135 - 145 mmol/L [facility] Potassium 4.2 3.3 - 5.1 mmol/L [facility] Chloride 105 96 - 108 mmol/L [facility] Carbon Dioxide 23 22 - 29 mmol/L [facility] Anion Gap 15 12 - 20 [facility] Urea Nitrogen (BUN) 25(H) 9 - 16 mg/dL [facility] Creatinine, Serum 1.63(H) 0.5 - 1.4 mg/dL [facility] Estimated Glomerular Filt Rate 44 [facility] Comment:Chronic Kidney Disea se: Estimated GFR < 60 mL/min/1.82s2Gordeu Kidney Disease: Estimated GFR < 15 mL/min/1.73m2 Glucose 239(H) 60 - 115 mg/dL [facility] Calcium 9.5 8.4 - 10.2 mg/dL [facility] Bilirubin, Total 0.5 0.0 - 1.0 mg/dL [facility] Aspartate Amino Transferase 29 5 - 37 U/L [facility] Alanine Aminotransferase 32 0 - 40 U/L [facility] Total Protein 7.6 6.5 - 8.0 g/dL [facility] Albumin Level 4.4 3.5 - 5.0 g/dL [facility] Alkaline Phosphatase 64 39 - 117 U/L [facility] 12/28/2024 9:13 AM EST 12/28/2024 6:09 PM EST us Generic External Data Provider LAB BLOOD ORDERAB LES Final Result [facility] [address] [place] [phone] [phone] documented in this encounter Visit Diagnoses Not on filedocumented in this encounter Additional Health Concerns Assessment Noted Time PHQ-9 Depression Total Score: 4 03/04/20 23 2:58 PM EDT documented as of this encounter Care Teams Suture Winder Hand Relationship Specialty Start Date End Date Tor Crews MD [address] [place] [address] PCP - General Internal Medicine 07/21/14 documented as of this encounter
--- OUTSIDE RECORDS SUMMARY | 2024-12-30 10:57 | XMS_ITS | Encounter Summary ---
Author Organization [employer] Address [address] [facility] 7t [place] [address] Care Team Providers Care Clipper Counters Name Role Phone Tor Crews MD Primary Care Provide r Reason for Visit * Reason Comments Dentures Impression add tooth # 3 Encounter Details Date Type Department Care Team (Late st Contact Info) Description 12/10/2024 1:30 PM EST Office Visit [facility] ADULT DENTAL [address] [place] [address] Socorro Marinelli DDS [address] [place] [address] Tooth missing (Primary Dx) Social History Tobacco [...] existing tooth to partial - impression) Location: [facility] Tooth: #3 Procedure: Dentures- adding tooth #3 to upper RPD Verified the above with patient, surgeon assistant, and provider. Confirmed via patient's chart, intraorally and by radiographs. Java Oracle Developer: not applicable Chief Complaint Patient presents with [...] #3 to existing upper RPD. Lab used: [facility] Lab Due Date: 12/14/2024 Patient discharged alert, oriented, and in stable condition. NV: Delviery repaired RPD Assistant Nurse Manager: MILES Leiva Dentist: Socorro Marinelli DDS documented in this encounter Plan of Treatment Upcoming Encounters Date Type Department Care Team (Late st Contact Info) Description 01/20/2025 11:00 AM EDT Office Visit [facility] [address] [facility] [place] [address] Kristen Perez 02/10/2025 1:00 PM EDT Office Visit [facility] [address] [facility] [place] [place] [address] Tor Crews MD [facility] [place] [address] 06/01/2025 10:00 AM EDT Office Visit [facility] [place] [address] Kristen Perez Scheduled Orders Name Type Priority [...] documented as of this encounter Care Teams Clipper Counters Relationship Specialty Start Date End Date Tor Crews MD [facility] [place] [address] PCP - General Internal Medicine 07/21/14 documented as of this encounter
--- OUTSIDE RECORDS SUMMARY | 2024-12-30 10:57 | XMS_ITS | Encounter Summary ---
Author Organization [employer] Address [address] [facility] [address] [place] [address] Care Team Providers Care Gas Welding Machine Operator Name Role Phone Tor Crews MD Primary Care Provide r Reason for Visit * Reason Comments Med Refill Encounter Details Date Type Department Care Team ([facility] st Contact Info) Description 12/19/2024 Refill [facility] [address] [place], [place] [phone] Tor Crews MD [address] [place], [place] [phone] Seasonal allergies Social History Tobacco Use Types [...] Description 01/20/2025 11:00 AM EDT Office Visit [facility] ADULT DENTAL [address] [place] [address] Kristen Perez 02/10/2025 1:00 PM EDT Office Visit [facility] MED[facility] [address] [place] [phone] Tor Crews MD [address] [place] [address] 06/01/2025 10:00 AM EDT Office Visit [facility] ADULT D[facility] [address] [place] [address] Kristen Perez documented as of this encounter Visit Diagnoses Diagnosis Seasonal allergies Allergic rhinitis, cause unspecified documented in this encounter Additional Health Concerns Assessment Noted Time PHQ-9 Depression Total Score: 4 03/04/20 23 2:58 PM EDT documented as of this encounter Care Teams Gas Welding Machine Operator Relationship Specialty Start Date End Date Tor Crews MD [address] [place] [phone] PCP - General Internal Medicine 07/21/14 documented as of this encounter
--- OUTSIDE RECORDS SUMMARY | 2024-12-30 10:57 | XMS_ITS | Encounter Summary ---
Author Organization [employer] Address [address] [facility] [address] 7[address] [place] [address] Care Team Providers Care Arts And Sciences Dean Name Role Phone Tor Crews MD Primary Care Provide r Encounter Details Date Type Department Care Team (Late st Contact Info) Description 02/27/2023 Abstract [facility] MED[facility]INE [address] [place] [phone] Tor Crews MD [address] [place], [place] [phone] Social History Tobacco Use Types Packs/Day Years [...] 11:00 AM EDT Office Visit [facility] ADULT DENTAL [address] [place] [phone] Kristen Perez 02/10/2025 1:00 PM EDT Office Visit [facility] MEDICINE [address] [place], [place] [phone] Tor Crews MD [address] [place] [address] 06/01/2025 10:00 AM EDT Office Visit [facility] ADULT DENTAL [address] [place] [address] Kristen Perez documented as of this encounter [...] on filedocumented in this encounter Care Teams Arts And Sciences Dean Relationship Specialty Start Date End Date Tor Crews MD [place] [phone] PCP - General Internal Medicine 07/21/14 documented as of this encounter
--- OUTSIDE RECORDS SUMMARY | 2024-12-30 10:57 | XMS_ITS | Encounter Summary ---
Author Organization [employer] Address [address] [facility] [address] [place] [address] Care Team Providers Care Stucco Laborer Name Role Phone Tor Crews MD Primary Care Provide r Encounter Details Date Type Department Care Team (Late st Contact Info) Description 12/17/2022 Orders Only [facility] MEDICINE [address] [place] [phone] Ally Rodríguez LPN Social History Tobacco Use [...] Description 01/20/2025 11:00 AM EDT Office Visit [facility] ADULT DENTAL [address] [place] [address] Kristen Perez 02/10/2025 1:00 PM EDT Office Visit [facility] MEDICINE [address] [place] [address] Tor Crews MD [address] [place] [address] 06/01/2025 10:00 AM EDT Office Visit [facility] ADULT DENTAL [address] [place] [address] Kristen Perez documented as of this encounter Visit Diagnoses Not on filedocumented in this encounter Care Teams Stucco Laborer Relationship Specialty Start Date End Date Tor Crews MD [address] [place] [address] PCP - General Internal Medicine 07/21/14 documented as of this encounter
--- OUTSIDE RECORDS SUMMARY | 2024-12-30 10:57 | XMS_ITS | Encounter Summary ---
Author Organization [facility] Address [address] [facility] [address] [place] [phone] Phone Care Team Providers Care Car Scrubber Name Role Phone Tor Guzman MD Primary Care Provider Unarohit ailable Encounter Details Date Type Department Care Team (Late st Contact Info) Description 11/10/2023 Office Communication [facility] [address] [place] [address] Ko Gorman MD [address] [facility] [address] [place] [address] Social History Tobacco Use Types [...] He stated he is not coming to [facility] * Telephone Encounter - Ko Gorman MD - 11/10/2023 8:42 PM EST Cathy appt with me in 4-6 wks documented in this encounter Plan of Treatment Not on file documented as of this encounter Visit Diagnoses Not on filedocumented in this encounter Care Teams Car Scrubber Relationship Specialty Start Date End Date Tor Guzman MD PCP - General 11/06/20 documented as of this encounter
--- OUTSIDE RECORDS SUMMARY | 2024-12-30 10:57 | XMS_ITS | Encounter Summary ---
Author Organization [employer] Address [address] [facility] [address] [place] [address] Care Team Providers Care Second Baller Name Role Phone Tor Crews MD Primary Care Provide r Reason for Visit * Reason Onset Date Comments triage 01/13/2023 Encounter Details Date Type Department Care Team ([facility] st Contact Info) Description 01/13/2023 Telephone [facility] MEDICINE [address] [place], [place] [phone] Tor Crews MD [address] [place], [place] [phone] triage Social History Tobacco Use Types Packs/Day [...] 01/13/2023 1:24 PM EDT Triage call with [employer] [employer] [place] [id number] Pt reports upper abdominal pain since last [...] light yellow/clear. Advised Pt to come to [facility] today and Pt agreed. Home care [...] Description 01/20/2025 11:00 AM EDT Office Visit [facility] ADULT DENTAL [address] [place] [address] Kristen Perez 02/10/2025 1:00 PM EDT Office Visit [facility] MEDICINE [address] [place] [address] Tor Crews MD [address] [place] [address] 06/01/2025 10:00 AM EDT Office Visit [facility] ADULT DENTAL [address] [place] [address] Kristen Perez documented as of this encounter Visit Diagnoses Not on filedocumented in this encounter Care Teams Second Baller Relationship Specialty Start Date End Date Tor Crews MD [address] [place] [address] PCP - General Internal Medicine 07/21/14 documented as of this encounter
[2024-12-30 11:46] VITALS: BP 114/66; PULSE 91; RESP 18; TEMP 37.2; O2SAT 95
[2024-12-30 12:04] LABS: Venous Blood Gas Refer to POC result
[2024-12-30 12:05] LABS: VBG Base Excess -1.4 mmol/L; VBG HCO3 22 mmol/L (22-26); VBG pCO2 36 mmHg; VBG pO2 81 mmHg
[2024-12-30 12:26] LABS: Troponin-I High Sensitivity 4.7 ng/L (<3.5-35.0)
[2024-12-30 12:46] LABS: Appearance Urine Clear; Color Urine Yellow; Glucose Urine UA >=1000 mg/dL (Negative); Leukocyte Esterase Urine Negative (Negative); Nitrite Urine Negative (Negative); PH 5.5 (5.0-9.0); Specific Gravity - Urine >= 1.030 (1.005-1.025); UMIC TRIGGER UACC YES; Urine Blood Negative (Negative); Urine Ketones Trace mg/dL (Negative); Urine Protein Negative (Neg-Trace)
[2024-12-30 12:55] LABS: Bacteria Urine None Seen (None Seen); Hyaline Casts Urine 0-2 /LPF (0-2); RBC Urine 0-2 /HPF (0-2); Squamous Epithelial Cell Urine 0-2 /HPF (0-2); WBC Urine 0-5 /HPF (0-5)
[2024-12-30 13:47] VITALS: BP 107/52; PULSE 86; RESP 18; TEMP 37.2; O2SAT 95
[2024-12-30 13:49] LABS: CDiff Gene PCR NEGATIVE (Negative)
[2024-12-30 14:33] LABS: Adenovirus F 40/41 Not Detected (Not Detect.); Astrovirus Not Detected (Not Detect.); Campylobacter Not Detected (Not Detect.); Cryptosporidium Not Detected (Not Detect.); Cyclospora cayetanensis Not Detected (Not Detect.); E. coli EAEC Not Detected (Not Detect.); E. coli EPEC Not Detected (Not Detect.); E. coli ETEC Not Detected (Not Detect.); E. coli STEC Not Detected (Not Detect.); Entamoeba histolytica Not Detected (Not Detect.); Giardia lamblia Not Detected (Not Detect.); Plesiomonas shigelloides Not Detected (Not Detect.); Rotavirus A Not Detected (Not Detect.); Salmonella Not Detected (Not Detect.); Sapovirus Not Detected (Not Detect.); Shigella sp./EIEC Not Detected (Not Detect.); Vibrio Not Detected (Not Detect.); Vibrio Cholerae Not Detected (Not Detect.); Yersinia enterocolitica Not Detected (Not Detect.)
[2024-12-30 14:47] VITALS: BP 116/56; PULSE 88; RESP 18; TEMP 37.2; O2SAT 95
[2024-12-30 15:26] LABS: Norovirus GI/GII Detected (Not Detect.)
== END 2024-12-30 15:00 | disposition home or self-care (01) ==
PROVIDERS: Physician Assistant; Emergency Provider Emergency Medicine; PCP Internal Medicine
DX: K52.9 Noninfective gastroenteritis and colitis, unspecified (principal); R10.10 Upper abdominal pain, unspecified; R11.2 Nausea with vomiting, unspecified; E11.9 Type 2 diabetes mellitus without complications; R10.2 Pelvic and perineal pain; I10 Essential (primary) hypertension; Z03.818 Encounter for observation for suspected exposure to other biological agents ruled out; Z79.4 Long term (current) use of insulin; Z79.899 Other long term (current) drug therapy; Z79.85 Long-term (current) use of injectable non-insulin antidiabetic drugs; Z79.84 Long term (current) use of oral hypoglycemic drugs
CPT/HCPCS: 0241U; 36415; 74176; 80053; 81001; 82010; 82803; 83690; 83880; 84484; 85025; 87493; 87507; 93005; 96361; 96374; 96375; 99284; J2270; J2405

== ENCOUNTER → 2024-12-30 09:27 | Outpatient (BNV) | payer OTHER, SELFPAY | PROVIDERS: Emergency Provider Emergency Medicine; PCP Internal Medicine; Visit Provider Internal Medicine Cardiovascular Disease | DX: I49.3 Ventricular premature depolarization (principal); Z95.0 Presence of cardiac pacemaker | CPT/HCPCS: 93010 ==

== ENCOUNTER → 2024-12-30 10:20 | Outpatient (BNV) | payer OTHER, SELFPAY | PROVIDERS: Emergency Provider Emergency Medicine; PCP Internal Medicine; Visit Provider Radiology Diagnostic Radiology | DX: A04.9 Bacterial intestinal infection, unspecified (principal); K42.9 Umbilical hernia without obstruction or gangrene; R10.9 Unspecified abdominal pain | CPT/HCPCS: 74176 ==

== ENCOUNTER → 2025-02-22 23:59 | Outpatient (BNV) | payer OTHER, SELFPAY ==
--- NOTE | 2025-02-22 15:20 | A.OFFVIS_ITS ---
Intake Visit Reasons: Remote HF monitoring- [employer] Allergies No Known Allergies [No Known Allergies*] Allergy (Verified 01/27/25 12:00) PFSH Medical History ICD (implantable cardioverter-defibrillator) lead failure Biventricular ICD (implantable cardioverter-defibrillator) in place Nonischemic cardiomyopathy GERD (gastroesophageal reflux disease) Asthma NANO (obstructive sleep apnea) Obesity due to excess calories HLD (hyperlipidemia) Type 2 diabetes mellitus with chronic kidney disease Heart failure with reduced ejection fraction Implantable cardioverter-defibrillator lead failure High cholesterol Diabetes HTN (hypertension) Pacemaker Surgical History S/P ICD (internal cardiac defibrillator) procedure History of tonsillectomy Hx of cardiac cath Hx of transesophageal echocardiography (DAWN) for monitoring History of permanent cardiac pacemaker placement (~2008) History of circumcision Family History Father HTN (hypertension) Diabetes CVD (cardiovascular disease) Hypercholesterolemia Mother Hypercholesterolemia HTN (hypertension) Diabetes Social History (System 01/27/25 @ 12:00 by Elo Duong) Household Members: Spouse Household Members Other:: SO:Thu Housing: Apartment Do you presently have visiting nurse or other home services: No Alcohol intake: current Alcohol intake frequency: 3 or more drinks per day Patient Tobacco Use Status: Never used Tobacco Tobacco use type: Cigarette service: No Office Procedures Cardiac Device Check Cardiac Device Check Details: Remote heart failure report generated 02/22/2025. Heart failure parameters are stable [id number] Cardiac Device Interrogation, cardio physiologic monitor Procedure code (CPT) selection complete Assessment & Plan Assessment & Plan (1) S/P ICD (internal cardiac defibrillator) procedure: Comment: [employer]. Implant date 04/26/[address] Cota. Device [employer] INTERNAL MEDICINE PHYSICIAN-D [id number] Code(s): Z95.810 - Presence of automatic (implantable) cardiac defibrillator Category: Surgical Plan: See above Coding Level of Care Code Procedure Only Diagnoses S/P ICD (internal cardiac defibrillator) procedure Z95.810 CPT Codes Cardiac Device Check - Cardiac Device 15: [id number] Cardiac Device Interrogation, cardio physiologic monitor ([id number])
== END ==
PROVIDERS: PCP Internal Medicine; Visit Provider Internal Medicine Cardiovascular Disease
DX: Z45.02 Encounter for adjustment and management of automatic implantable cardiac defibrillator (principal)
CPT/HCPCS: 93297

== ENCOUNTER → 2025-02-22 23:59 | Outpatient (BNV) | payer OTHER, SELFPAY ==
--- NOTE | 2025-02-22 15:21 | A.OFFVIS_ITS ---
Intake Visit Reasons: Remote ICD check- [employer] Allergies No Known Allergies [No Known Allergies*] Allergy (Verified 01/27/25 12:00) [facility] Medical History ICD (implantable cardioverter-defibrillator) lead failure Biventricular ICD (implantable cardioverter-defibrillator) in place Nonischemic cardiomyopathy GERD (gastroesophageal reflux disease) Asthma NANO (obstructive sleep apnea) Obesity due to excess calories HLD (hyperlipidemia) Type 2 diabetes mellitus with chronic kidney disease Heart failure with reduced ejection fraction Implantable cardioverter-defibrillator lead failure High cholesterol Diabetes HTN (hypertension) Pacemaker Surgical History S/P ICD (internal cardiac defibrillator) procedure History of tonsillectomy Hx of cardiac cath Hx of transesophageal echocardiography (DAWN) for monitoring History of permanent cardiac pacemaker placement (~2008) History of circumcision Family History Father HTN (hypertension) Diabetes CVD (cardiovascular disease) Hypercholesterolemia Mother Hypercholesterolemia HTN (hypertension) Diabetes Social History (System 01/27/25 @ 12:00 by Elo Duong) Household Members: Spouse Household Members Other:: SO:Thu Housing: Apartment Do you presently have visiting nurse or other home services: No Alcohol intake: current Alcohol intake frequency: 3 or more drinks per day Patient Tobacco Use Status: Never used Tobacco Tobacco use type: Cigarette service: No Office Procedures Cardiac Device Check Cardiac Device Check Details: Remote ICD report generated 02/22/2025. ICD function is adequate. Bi V pacing 96% of the time [id number] Cardiac Interrogation, implant defibrillator w/interim Procedure code (CPT) selection complete Assessment & Plan Assessment & Plan (1) S/P ICD (internal cardiac defibrillator) procedure: Comment: [employer]. Implant date 04/26/[address] Cota. Device [employer] METHOD CONSULTANT-D [id number] Code(s): Z95.810 - Presence of automatic (implantable) cardiac defibrillator Category: Surgical Plan: See above Coding Level of Care Code Procedure Only Diagnoses S/P ICD (internal cardiac defibrillator) procedure Z95.810 CPT Codes Cardiac Device Check - Cardiac Device 13: [id number] Cardiac Interrogation, implant defibrillator w/interim ([id number])
== END ==
PROVIDERS: PCP Internal Medicine; Visit Provider Internal Medicine Cardiovascular Disease
DX: Z45.02 Encounter for adjustment and management of automatic implantable cardiac defibrillator (principal)
CPT/HCPCS: 93295

== ENCOUNTER → 2025-02-24 19:30 | Outpatient (REF) | payer OTHER, SELFPAY ==
--- OUTSIDE RECORDS SUMMARY | 2025-02-24 20:47 | XMS_ITS | Encounter Summary ---
Author Organization [employer] Address [address] [facility]t [place] [address] Care Team Providers Care Ethnoarchaeologist Name Role Phone Tor Crews MD Primary Care Provide r Encounter Details Date Type Department Care Team ([facility] st Contact Info) Description 01/19/2025 Telephone [facility] MEDICINE [address] [place], [place] [phone] Tor Crews MD [address] [place], [place] [phone] Social History Tobacco Use Types Packs/Day Years [...] Care Team (Late st Contact Info) Description 04/04/2025 11:00 AM EDT Office Visit [facility] ADULT DENTAL [address] [place] [address] Kristen Perez 05/17/2025 11:30 AM EDT Office Visit [facility] MEDICINE [address] [place] [address] Tor Crews MD [address] [place] [address] 06/01/2025 10:00 AM EDT Office Visit [facility] ADULT DENTAL [address] [place] [address] Juliann Johnson [address] [place] [phone] documented as of this encounter Visit Diagnoses Not on filedocumented in this encounter Additional Health Concerns Assessment Noted Time PHQ-9 Depression Total Score: 4 03/04/20 23 2:58 PM EDT documented as of this encounter Care Teams Ethnoarchaeologist Relationship Specialty Start Date End Date Tor Crews MD [address] [place] [phone] PCP - General Internal Medicine 07/21/14 documented as of this encounter
--- OUTSIDE RECORDS SUMMARY | 2025-02-24 20:47 | XMS_ITS | Encounter Summary ---
Author Organization [employer] Address 75 [facility] 7t [place] [address] Care Team Providers Care Behavioral Psychologist Name Role Phone Tor Crews MD Primary Care Provide r Reason for Visit * Reason Comments Hatch Encounter Details Date Type Department Care Team ([facility] st Contact Info) Description 02/22/2025 2:30 PM EDT Office Visit [facility] ADULT DENTAL 230 [place] [address] Socorro Marinelli DDS [address] [place] [address] Social History Tobacco Use Types Packs/Day Years [...] t he electric, gas, oil or water Trove threatened to shut off services in your [...] Sign Reading Time Taken Comments Blood Pressure 116/68 02/22/2025 2:37 PM EDT Pulse - - Temperature - - Respiratory Rate - - Oxygen Saturation - - Inhaled Oxygen Concentration - - Weight - - Height - - Body Mass Index - - documented in this encounter Progress Notes * Socorro Marinelli DDS - 02/22/2025 2:30 PM EDT New impresion provided to lab as requested. Patient ID: Ian Godinez is a 54 y.o. male. Time Out: Timeout Date: 02/22/25, Timeout Time: 1436 Location: [facility] Tooth: Maxilla Procedure: new impression per lab request Verified the above with patient, hearing aid assistant, and provider. Confirmed via patient's chart, intraorally and by radiographs. Timber Appraiser: not applicable Chief Complaint Patient presents with [facility]atch Medical Hx: Vitals: Blood pressure 116/68. Medications, Med Hx reviewed with patient and updated in chart. Consent Obtained: The risks, benefits, indications, potential complications, and alternatives were explained to the patient and informed consent was obtained with good understanding. Treatment Provided: Dental procedures in this visit D5750 - DENTURE IMPRESSION (Completed) Service provider: Socorro Marinelli DDS Billing provider: Socorro Marinelli DDS Impression taken with [place] of Maxilla Case sent to lab to fabricate record base and wax rims. Lab used: [facility] Lab Lab Due Date: 02/23/2025 Patient discharged alert, oriented, and in stable condition. NV: Delivery repaired [employer] Planer Stone: MILES Leiva Dentist: Socorro Marinelli DDS documented in this encounter Plan of Treatment Upcoming Encounters Date Type Department Care Team (Late st Contact Info) Description 04/04/2025 11:00 AM EDT Office Visit [facility] ADULT DENTAL [address] [place], [place] [phone] Kristen Perez 05/17/2025 11:30 AM EDT Office Visit [facility] MEDICINE [address] [place] [address] Tor Crews MD [address] [place] [phone] 06/01/2025 10:00 AM EDT Office Visit [facility] ADULT DENTAL [address] [place], [place] [phone] Juliann Johnson [address] [place] [address] [phone] Scheduled Orders Name Type Priority Associated Diagnoses Orde r Schedule DENTAL LAB DENTURES AND PARTIALS Dental Routine Ordered: 025 documented as of this encounter Procedures Procedure Name Priority Date/Time Associated Diagnosis Comments DENTURE IMPRESSION Routine 02/22/2025 2:30 PM EDT documented in this encounter Visit Diagnoses Not on filedocumented in this encounter Additional Health Concerns Assessment Noted Time PHQ-9 Depression Total Score: 4 03/04/20 23 2:58 PM EDT documented as of this encounter Care Teams Behavioral Psychologist Relationship Specialty Start Date End Date Tor Crews MD [address] [place] [address] [phone] PCP - General Internal Medicine 07/21/14 documented as of this encounter
--- OUTSIDE RECORDS SUMMARY | 2025-02-24 20:47 | XMS_ITS | Encounter Summary ---
Author Organization [employer] Address [address] [facility] [address] 7t [place] [address] Care Team Providers Care Industrial Illuminating Engineer Name Role Phone Tor Crews MD Primary Care Provide r Encounter Details Date Type Department Care Team ([facility] st Contact Info) Description 10/15/2024 Orders Only [facility] MEDICINE [address] [place], [place] [phone] Arcelia Watkins ANP [address] [place], [place] [phone] Social History Tobacco Use Types Packs/Day Years [...] Description 04/04/2025 11:00 AM EDT Office Visit [facility] ADULT DENTAL [address] [place] [address] Kristen Perez 05/17/2025 11:30 AM EDT Office Visit [facility] MEDICINE [address] [place] [address] Tor Crews MD [address] [place] [phone] 06/01/2025 10:00 AM EDT Office Visit [facility] ADULT DENTAL [address] [place] [address] Juliann Johnson [address] [place] [address] [phone] documented as of this encounter Visit Diagnoses Not on filedocumented in this encounter Additional Health Concerns Assessment Noted Time PHQ-9 Depression Total Score: 4 03/04/20 23 2:58 PM EDT documented as of this encounter Care Teams Industrial Illuminating Engineer Relationship Specialty Start Date End Date Tor Crews MD [address] [place] [phone] PCP - General Internal Medicine 07/21/14 documented as of this encounter
--- OUTSIDE RECORDS SUMMARY | 2025-02-24 20:47 | XMS_ITS | Encounter Summary ---
Author Organization [employer] Address [address] [facility] [address] 7t [place] [address] Care Team Providers Care Product Managent Intern Name Role Phone Tor Crews MD Primary Care Provide r Reason for Visit * Reason Comments Med Refill Encounter Details Date Type Department Care Team ([facility] st Contact Info) Description 08/07/2023 Refill [facility] MEDICINE 230 [place], [place] [phone] Tor Crews MD 230 [place], [place] [phone] Hypertriglyceridemia Social History Tobacco Use Types Packs/Day [...] Description 04/04/2025 11:00 AM EDT Office Visit [facility] ADULT DENTAL [address] [place] [phone] Kristen Perez 05/17/2025 11:30 AM EDT Office Visit [facility] MEDICINE [address] [place] [phone] Tor Crews MD [address] [place] [phone] 06/01/2025 10:00 AM EDT Office Visit [facility] ADULT DENTAL [address] [place] [address] Juliann Johnson [address] [place] [address] [phone] documented as of this encounter Visit Diagnoses Diagnosis Hypertriglyceridemia Pure hyperglyceridemia documented in this encounter Additional Health Concerns Assessment Noted Time PHQ-9 Depression Total Score: 4 03/04/20 23 2:58 PM EDT documented as of this encounter Care Teams Product Managent Intern Relationship Specialty Start Date End Date Tor Crews MD [address] [place] [phone] PCP - General Internal Medicine 07/21/14 documented as of this encounter
--- OUTSIDE RECORDS SUMMARY | 2025-02-24 20:47 | XMS_ITS | Encounter Summary ---
Author Organization [employer] Address 75 [facility] 7t [place] [address] Care Team Providers Care Drawing Operator Name Role Phone Tor Crews MD Primary Care Provide r Encounter Details Date Type Department Care Team (Latest Contact Info) Description 04/26/2021 Abstract [facility] CONVERSIONS Dental, Provider, DDS Social History [...] Description 04/04/2025 11:00 AM EDT Office Visit [facility] ADULT DENTAL [address] [place] [address] Kristen Perez 05/17/2025 11:30 AM EDT Office Visit [facility] MEDICINE [address] [place] [address] Tor Crews MD [address] [place] [address] 06/01/2025 10:00 AM EDT Office Visit [facility] ADULT DENTAL [address] [place] [address] Juliann Johnson [address] [place] [address] [phone] documented as of this encounter Visit Diagnoses Not on filedocumented in this encounter Care Teams Drawing Operator Relationship Specialty Start Date End Date Tor Crews MD [address] [place] [phone] PCP - General Internal Medicine 07/21/14 documented as of this encounter
--- OUTSIDE RECORDS SUMMARY | 2025-02-24 20:47 | XMS_ITS | Encounter Summary ---
Author Organization [employer] Address 75 [facility] 7t [place] [address] Care Team Providers Care Sales Process Manager Name Role Phone Tor Crews MD Primary Care Provide r Reason for Visit * Reason Comments Med Refill Encounter Details Date Type Department Care Team ([facility] st Contact Info) Description 11/18/2024 Refill [facility] MEDICINE [address] [place], [place] [phone] Tor Crews MD 230 [place], [place] [phone] Type 2 diabetes mellitus without complications (CMS/HCC) [...] Description 04/04/2025 11:00 AM EDT Office Visit [facility] ADULT DENTAL [address] [place] [phone] Kristen Perez 05/17/2025 11:30 AM EDT Office Visit [facility] MEDICINE [address] [place] [address] Tor Crews MD [address] [place] [address] 06/01/2025 10:00 AM EDT Office Visit [facility] ADULT DENTAL [address] [place] [address] Juliann Johnson [address] [place] [address] [phone] documented as of this encounter Visit Diagnoses Diagnosis Type 2 diabetes mellitus without complications (CMS/HCC) documented in this encounter Additional Health Concerns Assessment Noted Time PHQ-9 Depression Total Score: 4 03/04/20 23 2:58 PM EDT documented as of this encounter Care Teams Sales Process Manager Relationship Specialty Start Date End Date Tro Crews MD [address] [place] [phone] PCP - General Internal Medicine 07/21/14 documented as of this encounter
--- OUTSIDE RECORDS SUMMARY | 2025-02-24 20:47 | XMS_ITS | Encounter Summary ---
Author Organization [employer] Address [address] [facility] [address] 7t [place] [address] Care Team Providers Care Casino Slot Supervisor Name Role Phone Tor Crews MD Primary Care Provide r Reason for Visit * Reason Onset Date Comments triage 01/13/2023 Encounter Details Date Type Department Care Team ([facility] st Contact Info) Description 01/13/2023 Telephone [facility] MEDICINE [address] [place], [place] [phone] Tor Crews MD 230 [place], [place] [phone] triage Social History Tobacco Use Types Packs/Day [...] 01/13/2023 1:24 PM EDT Triage call with [employer] Practitioner ID [id number] Pt reports upper abdominal pain since last [...] light yellow/clear. Advised Pt to come to [facility] today and Pt agreed. Home care reviewed. [...] Description 04/04/2025 11:00 AM EDT Office Visit [facility] ADULT DENTAL [address] [place] [address] Kristen Perez 05/17/2025 11:30 AM EDT Office Visit [facility] MEDICINE [address] [place] [address] Tor Crews MD [address] [place] [address] 06/01/2025 10:00 AM EDT Office Visit [facility] ADULT DENTAL [address] [place] [address] Juliann Johnson [address] [place] [address] [phone] documented as of this encounter Visit Diagnoses Not on filedocumented in this encounter Care Teams Casino Slot Supervisor Relationship Specialty Start Date End Date Tor Crews MD 230 [place] [address] PCP - General Internal Medicine 07/21/14 documented as of this encounter
--- OUTSIDE RECORDS SUMMARY | 2025-02-24 20:47 | XMS_ITS | Encounter Summary ---
Author Organization [employer] Address [address] [facility] [address] [place] [address] Care Team Providers Care Firmware Test Engineer Name Role Phone Tor Crews MD Primary Care Provide r Encounter Details Date Type Department Care Team (Late st Contact Info) Description 12/17/2022 Orders Only [facility] MEDICINE [address] [place] [phone] Ally Rodríguez LPN Social History Tobacco Use [...] Description 04/04/2025 11:00 AM EDT Office Visit [facility] ADULT DENTAL 230 [place] [address] Kristen Perez 05/17/2025 11:30 AM EDT Office Visit [facility] MEDICINE [address] [place] [address] Tor Crews MD 230 [place] [address] 06/01/2025 10:00 AM EDT Office Visit [facility] ADULT DENTAL [address] [place] [address] Juliann Johnson [address] [place] [phone] documented as of this encounter Visit Diagnoses Not on filedocumented in this encounter Care Teams Firmware Test Engineer Relationship Specialty Start Date End Date Tor Crews MD [address] [place] [phone] PCP - General Internal Medicine 07/21/14 documented as of this encounter
--- OUTSIDE RECORDS SUMMARY | 2025-02-24 20:47 | XMS_ITS | Clinical Summary ---
Author Organization [employer] Address [address] [place] [address] Care Team Providers Care Repairer Hairspring Name Role Phone Tor Crews MD Primary Care Provide r Allergies No known active allergies Medications cholecalciferol (Vitamin D-3) 25 MCG tabletIndications :Low vitamin D level Take 1 tablet (25 [...] SM All Day Allergy Relief 10 MG tabletIndications :Mixed hyperlipidemia TAKE 1 TABLET BY MOUTH EVERY DAY 90 tablet 023 Active empagliflozin (Jardiance) 25 MGIndications:Typ e 2 diabetes mellitus without complication, unspecified whether remote computer terminal operator insulin use (CMS/HCC) take 1 tablet by oral route every day in the morning 90 tablet 1 023 Active atorvastatin (Lipitor) 40 MG tablet TAKE 1 TABLET BY MOUTH AT BEDTIME 90 tablet 3 023 Active Alcohol Swabs (Alcohol Prep) 70 % pads USE TWICE DAILY 100 each 11 023 Active aspirin (Aspirin Low Dose) 81 MG EC tabletIndications :Cardiomyopathy, unspecified type ([facility]/HCC) TAKE 1 TABLET BY MOUTH EVERY EVENING 90 tablet 3 024 Active digoxin (Lanoxin) 250 MCG tab;et Take 250 mcg by mouth in the morning. 024 Active omeprazole (PriLOSEC) [address] capsuleIndication s:Gastroesophagea l reflux disease without esophagitis TAKE 1 CAPSULE BY MOUTH EVERY DAY BEFORE MEALS 90 capsule 2 024 Active metoprolol succinate XL (Toprol-XL) 25 MG 24 hr tablet Take 25 mg by mouth Once per day. 1/2 tab daily Active furosemide (Lasix) 40 MG tablet Take 40 mg by mouth in the morning. 024 Active FREESTYLE LITE test stripIndications: Type 2 diabetes mellitus with stage 3b chronic kidney disease, with long-term current use of insulin ([facility]) Use to test blood sugar 3 times daily 100 each 12 024 2024 Active Blood Glucose Monitoring Suppl (FreeStyle [place] Lite) w/Device kitIndications:Ty pe 2 diabetes mellitus with stage 3b chronic kidney disease, with long-term current use of insulin ([facility]) Use to test blood sugar 3 times daily 1 kit Active predniSONE (Deltasone) 20 MG tabletIndications :Viral URI,Mild intermittent asthma with acute exacerbation 2 tabs po daily for 5 days 10 tablet 024 Active Vaporizer miscIndications:V iral URI,Mild intermittent asthma with acute exacerbation Dx asthma, viral uri 1 each 024 Active fenofibrate (Tricor) 54 MG tabletIndications :Hypertriglycerid emia TAKE 1 TABLET BY MOUTH EVERY MORNING 90 tablet 1 024 Active albuterol (2.5 MG/3ML) 0.083% nebulizer solution Take 3 mL (2.5 mg) by nebulization every 8 (eight) hours if needed for wheezing. 75 mL 2 024 Active Lantus 100 UNIT/ML injectionIndicati ons:Type 2 diabetes mellitus without complication, with long-term current use of insulin (CMS/HCC) INJECT 46 UNITS SUBCUTANEOUSLY AT BEDTIME 15 mL 3 025 Active Entresto 24-26 MG tablet Take 1 tablet by mouth 2 times daily. 025 Active triamcinolone (Kenalog) 0.1 % cream Apply topically if needed in the morning and at bedtime (affected area). 30 g 2 025 Active omega-3 (Fish Oil) 1000 MG capsuleIndication s:Mixed hyperlipidemia TAKE 1 CAPSULE BY MOUTH THREE TIMES DAILY 90 capsule 5 025 Active NovoLOG FLEXPEN 100 UNIT/ML penIndications:Ty pe 2 diabetes mellitus without complication, with long-term [...] capsule 025 Active glyBURIDE (Diabeta) 5 MG tabletIndications :Type 2 diabetes mellitus with stage 3b chronic kidney disease, with long-term current use of insulin (CMS/HCC) Take 1 tablet (5 mg) by mouth with breakfast. 60 tablet 1 025 Active semaglutide (Ozempic) 2 MG/1.5ML solution pen-injectorIndic ations:Type 2 diabetes mellitus with stage 3b chronic kidney disease, with long-term current use of insulin (CMS/[facility]) Inject 2 mg under the skin 1 (one) time per week. 2 each 6 025 Active fluticasone (Flonase) 50 MCG/ACT nasal sprayIndications: Seasonal allergies INSTILL 2 SPRAYS IN EACH NOSTRIL ONCE DAILY 16 g 3 025 Active TRUEplus Lancets 33G miscIndications:T ype 2 diabetes mellitus with stage 3b chronic kidney disease, with long-term current use of insulin (CMS/HCC) USE DIRECTED TO TEST BLOOD SUGAR THREE TIMES DAILY 100 each 11 025 Active Pentips Generic Pen Cypress 32G X 4 MM misc USE DIRECTED WITH novolog 100 each 5 025 Active UltiCare Insulin Syringe 30G X 1/2 0.5 ML misc USE ONCE DAILY DIRECTED 90 each 3 025 Active spironolactone (Aldactone) 25 MG tablet TAKE 1/2 TABLET BY MOUTH EVERY MORNING 45 tablet 3 025 Active loperamide (Imodium) 2 MG capsule PLEASE SEE ATTACHED FOR DETAILED DIRECTIONS Active cholecalciferol (Vitamin D-3) 1.25 MG (06087 UT) capsule Take 1 capsule by mouth every 7 (seven) days. 025 Active Ozempic, 2 MG/DOSE, 8 MG/3ML solution pen-injector 025 Active azithromycin (Zithromax) 250 MG tablet TAKE 2 TABLETS BY MOUTH TODAY, THEN TAKE 1 TABLET DAILY FOR 4 DAYS DIRECTED 024 Active UltiCare Insulin Syringe 30G X 1/2 0.5 ML misc USE DIRECTED ONCE DAILY 90 each 3 023 2024 Discontinued Pentips 32G X 4 MM misc USE DIRECTED WITH NOVOLOG FLEXPEN 100 each 3 024 2024 Discontinued spironolactone (Aldactone) 25 MG tablet Take 0.5 tablets (12.5 mg) by mouth Once per day. 45 tablet 025 2024 Discontinued Active Problems Problem Noted Date Diagnosed Date Hospital discharge follow-up 11/18/2024 Assessment & Plan (11/18/2024 1:37 PM EST): Patient is here for a HDF He was admitted to [facility] from 10/21-10/25/2024 After he presented with worsening [...] See image in chart. -Cleaned and used [place] cary to close laceration. -ER precautions discussed. [...] a HDF after a recent admission to [facility] for a syncopal episode. Pt presented to [...] of Carvedilol, Enteresto and Spironoloactone. Followed by education director who recommended to keep all his medications [...] AM EDT): Pt was seen by Dr Stlalings 07/27/2013 and underwent a lateral sphincterotomy Class [...] titers were negative, HIV (neg 12/[address] [facility]) , SAMEER (neg 01/03/[address] [facility] ) , ADRIÁN level was normal. Pt is s/p ICD placement in 2008 ([employer]) Follows at the HF clinic , last seen 07/2022 Dr. Nielson recommended to Continue current neurohormonal modulation with Entresto, Daily weight monitoring and avoidance of salt loading . Continue aggressive blood pressure control. Encouraged to continue to participate in physical activity as tolerated and participate in weight loss program. He has done extremely well with medical management despite no INVERTED BLOCK OPERATOR. He was advised to continue to follow at [facility] for heart transplant evaluation.on annual basis. Last seen 07/14/2024 He was last seen by Dr Nielson 12/01/2024 He is on: Toprol X: 12.5 mg One tablet Daily Entresto 24-26 mg BID And Lasix 40 mg once Daily Had stress test at [facility] 09/14/[address] Rich ECHO 08/05/2024 showed [...] titers were negative, HIV (neg 12/[address] [facility]) , SAMEER (neg 01/03/[address] [facility] ) , ADRIÁN level was normal. Pt is s/p ICD placement in 2008 ([place]) Follows at the HF clinic , last seen 07/2022 Dr. Nielson recommended to Continue current neurohormonal modulation with Entresto, Daily weight monitoring and avoidance of salt loading . Continue aggressive blood pressure control. Encouraged to continue to participate in physical activity as tolerated and participate in weight loss program. He has done extremely well with medical management despite no INVERTED BLOCK OPERATOR. He was advised to continue to follow at [facility] for heart transplant evaluation.on annual basis. Last seen 07/14/2024 He was last seen by Dr Nielson 02/25/2024 He is on: Toprol X: 12.5 mg One tablet Daily Entresto 24-26 mg BID And Lasix 40 mg once Daily Had stress test at [facility] 09/14/[address] Rich ECHO 08/05/2024 showed [...] titers were negative, HIV (neg 12/[address] [facility]) , SAMEER (neg 01/03/[address] [facility] ) , ADRIÁN level was normal. Pt is s/p ICD placement in 2008 ([place] [employer]) Follows at the HF clinic , [...] extremely well with medical management despite no INVERTED BLOCK OPERATOR. He was advised to continue to follow at [facility] for heart transplant evaluation.on annual basis. Last seen 07/14/2024 He was last seen by Dr Nielson 02/25/2024 His Carvedilol was replaced with Toprol X: 12.5 mg One tablet Daily His Entresto was lowered to 24-26 mg BID His Lasix was lowered to 40 mg once Daily by Dr Rich at [facility] Assessment & Plan (03/23/2024 11:09 AM EDT): Patient is here for a f/u He has non-ischemic cardiomyopathy diagnosed in 2008 (etiology ? NANO ? ETOH relate ? Pt gives a Hx of over 20 years of very heavy drinking. Basic blood work to r/o other etiologies: TSH 06/09/2013 was wnl, , Lyme titers were negative, HIV (neg 12/[address] [facility]) , SAMEER (neg 01/03/[address] [facility] ) , ADRIÁN level was normal. Pt is s/p ICD placement in 2008 ([place]) Follows at the HF clinic , last [...] extremely well with medical management despite no INVERTED BLOCK OPERATOR. He was advised to continue to follow with Dr Rivas at [facility] for heart transplant evaluation.on annual basis. He [...] titers were negative, HIV (neg 12/[address] [facility]) , SAMEER (neg 01/03/[address] [facility] ) , ADRIÁN level was normal. Pt is s/p ICD placement in 2008 ([place] [employer]) Follows at the HF clinic , [...] extremely well with medical management despite no INVERTED BLOCK OPERATOR. Dr Nielson recommended Follow-up echocardiogram in 1 month's time. He was advised to continue to follow with Dr Rivas at [facility] for heart transplant evaluation.on annual basis. He [...] titers were negative, HIV (neg 12/[address] [facility]) , SAMEER (neg 01/03/[address] [facility] ) , ADRIÁN level was normal. Pt is s/p ICD placement in 2008 ([place] [employer]) Follows at the HF clinic , last seen 07/2022 Heart failure with reduced ejection fraction with much improved LV ejection fraction 40-45% with much improved symptoms with NYHA class 1 symptoms. Last seen by Dr. Nielson 05/12/2023 He was advised to continue to follow with Dr Rivas at [facility] for heart transplant evaluation.on annual basis. Dr. [...] extremely well with medical management despite no INVERTED BLOCK OPERATOR. Dr Nielson recommended Follow-up echocardiogram in 1 [...] titers were negative, HIV (neg 12/[address] [facility]) , SAMEER (neg 01/03/[address] [facility] ) , ADRIÁN level was normal. last EF 20-25% 2017 Pt is s/p ICD placement in 2008 ([place]) Follows at the HF clinic , last seen 07/2022 Pt tells me he has a f/u with Dr. Nielson as well He was advised to continue to keep appointment with Dr Rivas at [facility] for heart transplant evaluation. CKD stage 3 secondary to diabetes 12/26/2015 Assessment & Plan (12/07/2024 11:25 AM EST): Under the care of Nephrology, last seen 12/01/2024 Dr. Bonilla his english teacher Lab Results Component Value Date GLUCOSE 340 (H) 10/16/2024 NA 140 11/23/2024 K 4.3 11/23/2024 CO2 24 11/23/2024 CL 110 (H) 11/23/2024 BUN 17 (H) 11/23/2024 CREATININE 1.56 (H) 11/23/2024 Assessment & Plan (11/18/2024 1:39 PM EST): Under the care of Nephrology, last seen 09/03/2024 Dr. Bonilla his english teacher Lab Results Component Value Date GLUCOSE 340 (H) 10/16/2024 NA 137 10/16/2024 K 3.8 10/16/2024 CO2 20 (L) 10/16/2024 CL 107 10/16/2024 BUN 30 (H) 10/16/2024 CREATININE 1.65 (H) 10/16/2024 Will repeat Assessment & Plan (09/21/2024 12:58 PM EST): Under the care of Nephrology, last seen 09/03/2024 Dr. Bonilla his english teacher Assessment & Plan (07/27/2024 11:47 AM EDT): Under the care of Nephrology, last seen 03/05/2024 Dr. Bonilla his english teacher Assessment & Plan (03/23/2024 11:01 AM EDT): Under the care of Nephrology, last seen 03/05/2024 Dr. Chad campbell english teacher Assessment & Plan (11/25/2023 12:08 PM EST): Under the care of Nephrology, last seen 07/16/2023. Dr. Bonilla his english teacher Assessment & Plan (06/10/2023 9:25 AM EDT): Under the care of Nephrology, last seen 12/2022. I sent a message via [employer] to Dr. Bonilla his english teacher letting him know I am starting patient [...] low fat low cholesterol diet, Referred to Behaviorist. RENITA Atorvastatin . Start Fenofibrate Follow up [...] use of insulin 04/13/2014 Assessment & Plan (02/10/2025 1:19 PM EDT): Pt here for a f/u Blood glucose log shows BG ranging between 70-174 Hgb A1c 12/07/2024: 8.7 from 9.2 from 9.7 Microalbumin level 12/25/2021 was 5 Eye exam: 01/23/2022 Currently on a regimen of: Lantus 46 units sc qpm, Humalog sliding scale, Glyburide 5 mg po daily, Jardiance 25 mg, Ozempic 2mg once a week, Metformin 500 mg po BID ( was restarted by [facility] in [place]). He stopped taking the Trulicity due to c/o nausea and vomiting. Plan: Continue current regimen 3 month follow up Foot check risk of zero Pt reports compliance with Asa 81 mg po daily Pt advised to: adhere to diabetic diet check your blood sugars regularly check your feet on a daily basis Assessment & Plan (12/07/2024 11:27 AM EST): Pt here for a f/u Blood glucose log shows BG ranging between 99 296 Hgb A1c 12/07/2024: 8.7 from 9.2 from 9.7 Microalbumin level 12/25/2021 was 5 Eye exam: 01/23/2022 Currently on a regimen of: Lantus 46 units sc qpm, Humalog sliding scale, Jardiance 25 mg, Ozempic 0.5 once a week His Metformin was restarted by [facility] in [place] 500 mg po BID once a day [...] a week His Metformin was restarted by [facility] in [place] 500 mg po BID once a day [...] 25 mg, His Metformin was restarted by [facility] in [place] 500 mg po BID once a day [...] 25 mg, His Metformin was restarted by [facility] in [place] 500 mg po BID once a day [...] 1.5 mg His Metformin was restarted by [facility] in [place] 500 mg po BID Plan: No changes [...] a psychotherapist her name is Aj at [facility] . He used to see Dr. Colon but stopped due to lack of transportation His biggest complaint was lack of sleep. I have agreed to prescribe trazodone 100 mg po q hs prn. Obstructive sleep apnea syndrome 01/21/2013 Assessment & Plan (03/23/2024 10:59 AM EDT): Under the care of diagnostic sales specialist (Dr Rucker). [facility] 01/27/2024 Awaiting Cpap Assessment & Plan (11/25/2023 11:58 AM EST): Sleep study done on 03/08/2013 confirmed the diagnosis of moderately severe NANO. Pt reported compliance with Cpap machine And is now under the care of diagnostic sales specialist (Dr Rucker). Awaiting Cpap Assessment & Plan (05/13/2023 8:57 AM EDT): Sleep study done on 03/08/2013 confirmed the diagnosis of moderately severe NANO. Pt reported compliance with Cpap machine And is now under the care of diagnostic sales specialist (Dr Rucker). He told me his Cpap was no longer working and needed a new one He was referred back for Sleep study, to sleep clinic. Appointment scheduled for 05/16/2023 Assessment & Plan (03/04/2023 3:01 PM EDT): Sleep study done on 03/08/2013 confirmed the diagnosis of moderately severe NANO. Pt reported compliance with Cpap machine And is now under the care of diagnostic sales specialist (Dr Rucker). He tells me his Cpap is no longer working and needs a new one Plan: Sleep study, will refer to sleep clinic Cardiomyopathy 01/11/2013 Gastroesophageal reflux disease 01/11/2013 Resolved Problems Problem Noted Date Diagnosed Date Resolved Date Ingrowing nail, right great toe 10/06/2017 11/25/2023 Assessment & Plan (07/15/2023 3:25 PM EDT): Pt tells me the master technician requested authorization from PCP to take care of his ingrown toe nail Plan: Podiatry referral Congestive heart failure 01/21/2013 Encounters Date Type Department Care Team Description 02/22/2025 2:30 PM EDT Office Visit [facility] [address] [place] [phone] Socorro Marinelli DDS 02/17/2025 Refill [facility] [address] [place] [address] Tor Crews MD 02/17/2025 Refill [facility] [address] [place] [address] Sinai Sesay MD 02/10/2025 1:00 PM EDT Office Visit [facility] [address] [place] [address] Tor Crews MD Type 2 diabetes mellitus with stage 3b chronic kidney disease, with long-term current use of insulin (CMS/[facility]) (Primary Dx) 02/10/2025 Travel 02/10/[address] [address] Tor Crews MD Durable Medical Equipment 01/28/[address] [address] Tor Crews MD [employer] (Cardinal heavy xlg, Incontinence supply, glove, exam vnyl lg, reusable jaylene pad.) 01/25/2025 Telephone [facility] [address] [place] [address] Socorro Marinelli DDS 01/25/2025 Telephone [facility] [address] [place] [address] Tor Crews MD Chart Prep 01/20/2025 11:00 AM EDT Office Visit [facility] [address] [place] [phone] Kristen Perez Subgingival dental calculus (Primary Dx); Dental plaque 01/19/[address] [address] Tor Crews MD 01/19/2025 Refill [facility] [address] [place] [address] Tor Crews MD Type 2 diabetes mellitus with stage 3b chronic kidney disease, with long-term current use of insulin (CMS/HCC) 01/19/2025 Refill [facility] [address], [place] [phone] Ashley Matute MD 01/06/[address] [address] Tor Crews MD 01/05/2025 Telephone [facility] [address] [place] [phone] Tor Crews MD Chart Prep 01/01/2025 9:40 AM EST Office Visit [facility] [place] [address] Remy Coughlin MD Norovirus (Primary Dx); Vomiting and diarrhea 01/01/2025 Travel 12/31/[address] [address] Gloria Mcdonnell, LIGHTING SPECIALIST Follow-up 12/30/2024 Orders Only GENERIC EXTERNAL DATA DEPARTMENT Provider, Generic External Data 12/28/2024 Orders Only GENERIC EXTERNAL DATA DEPARTMENT Provider, Generic External Data 12/19/[address] [address] Tor Crews MD Seasonal allergies 12/10/2024 1:30 PM EST Office Visit [facility] [address] [place] [phone] Socorro Marinelli DDS Tooth missing (Primary Dx) 12/07/2024 11:15 AM EST Office Visit [address] [place] [address] Tor Crews MD Chronic systolic heart failure ([facility]/HCC) (Primary Dx); Type 2 diabetes mellitus with stage 3b chronic kidney disease, with long-term current use of insulin (CMS/HCC); CKD stage 3 secondary to diabetes ([facility]/HCC) 12/07/2024 Travel 12/01/[address] [address] Tor Crews MD FYI 11/29/2024 10:00 AM EST Office Visit [facility] [address] [place] [phone] Kristen Perez Dental calculus (Primary Dx); Dental plaque; Tartar deposits on teeth; Subgingival dental calculus; Periodontal disease; Encounter for dental examination 11/29/2024 [address] [place] [address] Tor Crews MD Chart Prep from Last [...] Pressure 116/68 02/22/2025 2:37 PM EDT Pulse 79 02/10/2025 1:05 PM EDT Temperature 36.1 ??C (96.9 ??F) 02/10/2025 1:05 PM ED T Respiratory Rate 20 02/10/2025 1:05 PM EDT Oxygen Saturation 97% 01/01/2025 8:51 AM EST Inhaled Oxygen Concentration - - Weight 94.8 kg (209 lb) 02/10/2025 1:05 PM EDT Height 171.2 cm (5' 7.4 ) 02/10/2025 1:05 PM EDT Body Mass Index 32.34 02/10/2025 1:05 PM EDT Plan of Treatment Upcoming Encounters Date Type Department Care Team (Late st Contact Info) Description 04/04/2025 11:00 AM EDT Office Visit [facility] [address] [place] [address] Kristen Perez 05/17/2025 11:30 AM EDT Office Visit [facility] [address] [place] [address] Tor Crews MD [address] [place] [address] 06/01/2025 10:00 AM EDT Office Visit [facility] [address] [place] [address] Juliann Johnson [address] [place] [phone] Health Maintenance Due Date Last Done Comments [...] Prophylaxis 05/30/2025 11/29/2024 Dental X-Ray: Bitewings 11/30/2025 11/29/19, 09/20/2024, 04/18/2021 Alcohol/Substance Use Screening 12/07/2025 12/07/2024 Tobacco Screening 02/22/2026 02/22/2025 Eye Exam 07/02/2026 07/02/2024, 0903/2024, 07/02/2024, Additional [...] Associated Diagnosis Comments DENTURE IMPRESSION Routine 02/22/2025 2: 30 PM EDT POCT GLUCOSE Routine 02/10/2025 1:15 PM EDT Type 2 diabetes mellitus with stage 3b chronic kidney disease, with long-term current use of insulin ([facility]) CASE PRESENTATION, DETAILED AND EXTENSIVE TREATMENT PLANNING Routine 01/20/2025 11:00 AM EDT ORAL HYGIENE INSTRUCTIONS Routine 01/20/2025 11:00 AM EDT Subgingival dental calculus Dental plaque LL PERIODONTAL SCALING AND ROOT PLANING - 1 TO 3 TEETH PER QUADRANT Routine 01/20/2025 11:00 AM EDT Subgingival dental calculus Dental plaque UL PERIODONTAL SCALING AND ROOT PLANING - 1 TO 3 TEETH PER QUADRANT Routine 01/20/2025 11:00 AM EDT Subgingival dental calculus Dental plaque POCT INFLUENZA B (ID NOW RAPID MOLECULAR) Routine 01/01/2025 9:10 AM EST Vomiting and diarrhea POCT INFLUENZA A (ID NOW RAPID MOLECULAR) Routine 01/01/2025 9:10 AM EST Vomiting and diarrhea POC HENRY ID NOW STREP A Routine 01/01/2025 9:08 AM EST Vomiting and diarrhea POCT RAPID COVID ANTIGEN Routine 025 9:08 AM EST Vomiting and diarrhea CDIFF GENE PCR Routine 12/30/2024 12:39 PM EST URINALYSIS, COMPLETE, WITH REFLEX TO CULTURE Routine 12/30/2024 12:39 PM EST GASTROINTESTINAL PANEL Routine 12:39 PM EST VENOUS BLOOD GAS Routine 12/30/2024 12:0 1 PM EST HIGH SENSITIVITY TROPONIN I Routine 12/30/2024 11:[address] ABDOMEN PELVIS WO CONTRAST Routine 12/30/2024 10:26 AM EST VITAMIN D 25-OH (D2 AND D3) Routine 12/28/2024 9:13 AM EST CRP, HIGH SENSITIVITY Routine 12/28/2024 9:13 AM [...] disease, with long-term current use of insulin ([facility]) POCT GLUCOSE Routine 12/07/2024 11:15 AM EST Type 2 diabetes mellitus with stage 3b chronic kidney disease, with long-term current use of insulin ([facility]) COMPREHENSIVE PERIODONTAL EVALUATION - NEW OR ESTABLISHED [...] calculus Periodontal disease Encounter for dental examination LIPID PANEL WITH REFLEX TO DIRECT LDL Routine 09/09/2023 7:57 AM EST Hypertriglyceridem ia HM COLONOSCOPY Routine 01/25/2022 from Last 3 Months or Most Recently Relevant to Health Maintenance Results * (ABNORMAL) POCT glucose manually resulted (02/10/2025 1:15 PM EDT) Only the most recent of2 resultswithin the time period is included. Pathologist [facility] Glucose Blood, POC 224(A) 60 - 200 mg/dL QC Media Lot # [id number] Lot# Expiration Date 7515,[id number] Blood Capillary blood specimen / Unknown 02/10/2025 1:15 PM EDT us Tor Bañuelos MD POINT OF CARE TEST EN TER/EDIT ORDERABLES Final Result * POCT Rapid Influenza B HENRY ID NOW (01/01/2025 9:10 AM EST) [facility] Influenza B Negative Negative, Indeterminate [facility] QC Media Lot # [id number] [facility] Lot# Expiration Date 826 [facility] Swab 01/01/2025 9:10 AM EST us Remy Coughlin MD POINT OF CARE TEST ENTER/EDIT OR DERABLES Final Result Performing Organization Address [facility] Co de Phone Number [facility] [facility] [address] [place] [phone] * POCT Rapid Influenza A HENRY ID NOW (01/01/2025 9:10 AM EST) Pathologist [facility] Influenza A Negative Negative, Indeterminate [facility] QC Media Lot # [id number] [facility] Lot# Expiration Date [facility] Swab 01/01/2025 9:10 AM EST Result [facility] Remy Coughlin MD POINT OF CARE TEST ENTER/EDIT OR DERABLES Final Result Performing Organization Address [facility] de Phone Number [facility] [address] [place] [phone] * POCT Rapid Strep A HENRY ID NOW (01/01/2025 9:08 AM EST) Pathologist [facility] Rapid Strep A Screen Negative Negative, None Detected QC Media Lot # [id number] Lot# Expiration Date 526 Swab 01/01/2025 9:08 AM EST Result [facility] Remy Coughlin MD POINT OF CARE TEST ENTER/EDIT OR DERABLES Final Result * POCT Rapid Covid-19 BinaxNOW (01/01/2025 9:08 AM EST) Pathologist [facility] Rapid COVID Ag Negative QC Media Lot # [id number] Lot# Expiration Date 82 Swab 01/01/2025 9:08 AM EST Result [facility] us Remy Coughlin MD POINT OF CARE TEST ENTER/EDIT OR DERABLES Final Result * CDiff Gene PCR (12/30/2024 12:39 PM EST) Pathologist [facility] CDiff Gene PCR NEGATIVE Negative [facility] Comment:If C. difficile stro ngly suspected despite one negativetest, a second test may be sent vs. empiric treatment forC. difficile infection. 12/30/2024 12:3 9 PM EST 12/30/2024 12:43 PM EST us Generic External Data Provider LAB BODY FLUIDS A ND STOOLS ORDERABLES Final Result [facility] [address] [place] [phone] [phone] * (ABNORMAL) Gastrointestinal panel (12/30/2024 12:39 PM EST) Pathologist [facility] Campylobacter Not Detected Not Detect. [facility] Plesiomonas shigelloides Not Detected Not Detect. [facility] Salmonella Not Detected Not Detect. [facility] Vibrio Not Detected Not Detect. [facility] Vibrio cholerae Not Detected Not Detect. [facility] YERSINIA ENTEROCOLITICA Not Detected Not Detect. [facility] Enteroaggregative E. coli (EAEC) Not Detected Not Detect. [facility] Enteropathogenic E. coli (EPEC) Not Detected Not Detect. [facility] Enterotoxigenic E. coli (ETEC) lt/st Not Detected Not Detect. [facility] Shiga-like toxin-producing E. coli (STEC) stx1/stx2 Not Detected Not Detect. [facility] E coli O157 Not applicable Not Detect. [facility] Comment:E. coli containing t he O157 antigen are a subset ofShiga-like toxin- producing E. coli (STEC). Shigella/Enteroinvasive E. coli (EIEC) Not Detected Not Detect. [facility] Cryptosporidium Not Detected Not Detect. [facility] Cyclospora cayetanensis Not Detected Not Detect. [facility] Entamoeba histolytica Not Detected Not Detect. [facility] Giardia lamblia Not Detected Not Detect. [facility] Adenovirus F 40/41 Not Detected Not Detect. [facility] Astrovirus Not Detected Not Detect. [facility] Norovirus GI/GII Detected(A) Not Detect. [facility] Comment:Results of GI PANEL called to and read back by JEANE on 12/30/24 at 1523 by BRANT. Rotavirus A Not Detected Not Detect. [facility] Sapovirus Not Detected Not Detect. [facility] Comment: All results must be correlated with clinical findings.Negative results do not exclude the possibility ofgastrointestinal infection and should not be used as thesole basis for diagnosis, treatment, or other managementdecisions. Virus, bacteria, and parasite nucleic acid maypersist in vivo independently of organism viability.Additionally, some organisms may be carriedasymptomatically.Detection of organism targets does not imply that thecorresponding organisms are infectious or are the causativeagents for clinical symptoms. There is a risk of falsenegative values due to the presence of sequence variants inthe gene targets of the assay, amplification inhibitors inspecimens, or inadequate numbers of organisms foramplification.The identification of several diarrheagenic E. colipathotypes has historically relied upon phenotypiccharacteristics. This panel targets genetic determinantscharacteristic of most pathogenic strains, but may notdetect all strains having phenotypic characteristics of apathotype.The performance of this test has not been established formonitoring treatment of infection with any of the panelorganisms.This assay is performed by Multiplexed PCR, utilizing Pops Array. 12/30/2024 12:3 9 PM EST 12/30/2024 12:43 PM EST us Generic External Data Provider LAB MICROBIOLOGY - GENERAL ORDERABLES Final Result [facility] [address] [place] [phone] [phone] * (ABNORMAL) Urinalysis, Complete, with Reflex to Culture (12/30/2024 12:39 PM EST) Color Urine Yellow [facility] Appearance Urine Clear [facility] PH 5.5 5.0 - 9.0 [facility] Glucose Urine UA >=1000(A) Negative mg/dL [facility] Urine Blood Negative Negative [facility] Specific [place] - Urine >=1.030(H) 1.005 - 1.025 [facility] Urine Protein Negative Neg-Trace mg/dL [facility] Urine Ketones Trace Negative mg/dL [facility] Nitrite Urine Negative Negative [facility] Leukocyte Esterase Urine Negative Negative [facility] RBC Urine 0-2 0 - 2 /HPF [facility] Urine WBC 0-5 0 - 5 /HPF [facility] Urine Squamous Epithelial Cell 0-2 0 - 2 /HPF [facility] Urine Bacteria None Seen None Seen [facility] Hyaline Casts, Urine 0-2 0 - 2 /LPF [facility] 12/30/2024 12:3 9 PM EST 12/30/2024 12:43 PM EST Narrative [facility] - 12/30/2024 12:56 PM EST [id number], [employer] us Generic External Data Provider LAB URINE ORDERAB LES Final Result Performing Organization Address City/State/[facility] Co de Phone Number [facility] [address] [place] [phone] * VENOUS BLOOD GAS (12/30/2024 12:01 PM EST) VBG pH 7.40 7.32 - 7.43 [facility] Comment:METER #: [id number] additional_comment: Cullen olivo VBG PCO2 36 mmHg [facility] Comment:METER #: [id number] additional_comment: Cullen MCCANNG PO2 81 mmHg [facility] Comment:METER #: [id number] additional_comment: Cullen MCCANNG Base Excess -1.4 mmol/L [facility] Comment:METER #: [id number] additional_comment: Cb daleyjo VBG HCO3 22 22 - 26 mmol/L [facility] Comment:METER #: [id number] additional_comment: Cullen olivo O2 Sat, Leoncio 99.0 % [facility] Comment:METER #: [id number] additional_comment: Cullen olivo 12/30/2024 12:0 1 PM EST 12/30/2024 12:05 PM EST Generic External Data Provider LAB BLOOD ORDERAB LES Final Result Performing Organization Address [facility] Phone Number [facility] [address] [place] [phone] * High Sensitivity Troponin I (12/30/2024 11:58 AM EST) Pathologist [facility] TROPONIN I HIGH SENSITIVITY 4.7 <3.5 - 35.0 ng/L [facility] Comment:The Henry high sens itivity Troponin-I results should beused in conjunction with other diagnostic information suchas ECG, clinical observations and information, and patientsymptoms to aid in the diagnosis of [place]. 12/30/2024 11:5 8 AM EST 12/30/2024 12:00 PM EST Generic External Data Provider LAB BLOOD ORDERAB LES Final Result Performing Organization Address [facility] Phone Number [facility] [address] [place] [phone] * CT Abdomen Pelvis w/o Contrast (12/30/2024 10:26 AM EST) Anatomical Region Laterality Modality Body, Pelvis, Abdomen Computed T omography 12/30/2024 10:2 6 AM EST Narrative 12/30/2024 11:07 AM EST ? [facility] ?[address] ?[place] [address] ? CT Scan Report ? Signed ? Patient: Godinez Godinez,Ian ?MR#: MM ?? [id number] ? : 1970 ?Acct:[id number] ? Age/Sex: 54 / M ?ADM Date: 03/06/25 ? Loc: HO.ED ? Attending Dr: ? Ordering Physician: Abraham Gay ?? Date of Service: 12/30/24 ?? Procedure(s): CT abdomen pelvis wo IV con ?? Accession Number(s): [id number] ? cc: Abraham Gay; Tor Villela MD ? Report Number: ?? [id number]: Total DLP = ??585.00 mGy-cm ?? EXAMINATION: ?? CT ABDOMEN AND PELVIS WITHOUT CONTRAST ? CLINICAL INFORMATION: ?? Abdominal pain. Diarrhea. Colitis. ? COMPARISON: ?? May 27, 2013 is not available on PACS system ? TECHNIQUE: ?? Multidetector volumetric imaging was performed from the superior aspect ?? of the liver through the pubic symphysis. Sagittal and coronal ?? reformatted images were obtained on the technologist's workstation. ? This CT examination was performed using dose optimization techniques as ?? appropriate, variously including the following: ?? *Automated exposure control ?? *Adjustment of mA and/or kV according to patient size (this includes ?? techniques or standardized protocols for targeted exams where dose is ?? matched to indication/reason for exam; i.e. extremities or head) ?? *Use of iterative reconstruction technique. ?? DLP: 585 mGy centimeter. ? FINDINGS: ? Limited evaluation of the intra-abdominal organs and vascular ?? structures due to lack of IV contrast. ? LUNG BASES: No acute airspace disease in the included lungs. ? LIVER, GALLBLADDER, AND BILIARY TREE: Liver measures 16 cm. No ?? intrahepatic biliary ductal dilatation. Punctate calcification right ?? hepatic lobe.. No pericholecystic fluid collection or gallbladder wall ?? thickening. No intrahepatic or extrahepatic biliary ductal dilatation. ? PANCREAS: No peripancreatic fluid collection. No main pancreatic ductal ?? dilatation. ? SPLEEN: 13 cm. ? ADRENAL GLANDS: No nodular lesions. ? KIDNEYS AND URETERS: ? The kidneys are in a lower position at the iliac crest level with ?? lateral orientation of the renal hilum bilaterally. ?? No hydronephrosis in either kidney. ?? No gross nephrolithiasis. ? BLADDER: Fluid-filled nearly collapsed. ? GASTROINTESTINAL TRACT: ? Gas and fluid-filled nondistended large intestine. ?? Gas and fluid-filled prominent small bowel loops with questionable wall ?? thickening involving the jejunal loops. ?? No pneumatosis intestinalis. ?? No ascites. ?? No pneumoperitoneum. ?? Appendix is normal. ? ABDOMINAL WALL: Fat-containing umbilical hernia, small to moderate ?? size. ? LYMPH NODES: No lymphadenopathy. ? VASCULAR: No aneurysm, abdominal aorta. ? PELVIC VISCERA: Nonenlarged prostate gland or seminal vesicles. ? OSSEOUS STRUCTURES: Lumbar spondylosis from L2-3 to L5-S1. ? Electrode leads in the right heart chambers. ? CT/CT abdomen pelvis wo IV con ?? IMPRESSION: ?? Concerning enterocolitis in the correct clinical settings without ?? intestinal obstruction pattern. ?? Fat-containing umbilical hernia. ?? 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 ? Fleischner guidelines were followed. ? Electronically signed by: ??Nikhil Kilpatrick MD ??12/30/2024 11:04 AM ?? EST ? Dictated By: ?Nikhil Dubois MD ? Signed By: ?<Electronically signed by Nikhil Mcdonnell MD in OV> ? 12/30/24 1104 ? DD/ 1026 ? TD/TT: 12/30/24 1039 ? Sales Promoter: ? Procedure Note Jessy, Image - 12/30/[address] [address] [address] Scan Report Signed Patient: Ian Hernandez#: MM [id number] : 1970Acct:[id number] Age/Sex: 54 / MADM Date: 12/30/24 Loc: HO.ED Attending Dr: Ordering Physician: Abraham Gay Date of Service: 12/30/24 Procedure(s): CT abdomen pelvis wo IV con Accession Number(s): [id number] cc: Abraham Gay; Tor Villela MD Report Number: [id number]: Total DLP = 585.00 mGy-cm EXAMINATION: CT ABDOMEN AND PELVIS WITHOUT CONTRAST CLINICAL INFORMATION: Abdominal pain. Diarrhea. Colitis. COMPARISON: May 27, 2013 is not available on PACS system TECHNIQUE: Multidetector volumetric imaging was performed from the superior aspect of the liver through the pubic symphysis. Sagittal and coronal reformatted images were obtained on the technologist's workstation. This CT examination was performed using dose optimization techniques as appropriate, variously including the following: *Automated exposure control *Adjustment of mA and/or kV according to patient size (this includes techniques or standardized protocols for targeted exams where dose is matched to indication/reason for exam; i.e. extremities or head) *Use of iterative reconstruction technique. DLP: 585 mGy centimeter. FINDINGS: Limited evaluation of the intra-abdominal organs and vascular structures due to lack of IV contrast. LUNG BASES: No acute airspace disease in the included lungs. LIVER, GALLBLADDER, AND BILIARY TREE: Liver measures 16 cm. No intrahepatic biliary ductal dilatation. Punctate calcification right hepatic lobe.. No pericholecystic fluid collection or gallbladder wall thickening. No intrahepatic or extrahepatic biliary ductal dilatation. PANCREAS: No peripancreatic fluid collection. No main pancreatic ductal dilatation. SPLEEN: 13 cm. ADRENAL GLANDS: No nodular lesions. KIDNEYS AND URETERS: The kidneys are in a lower position at the iliac crest level with lateral orientation of the renal hilum bilaterally. No hydronephrosis in either kidney. No gross nephrolithiasis. BLADDER: Fluid-filled nearly collapsed. GASTROINTESTINAL TRACT: Gas and fluid-filled nondistended large intestine. Gas and fluid-filled prominent small bowel loops with questionable wall thickening involving the jejunal loops. No pneumatosis intestinalis. No ascites. No pneumoperitoneum. Appendix is normal. ABDOMINAL WALL: Fat-containing umbilical hernia, small to moderate size. LYMPH NODES: No lymphadenopathy. VASCULAR: No aneurysm, abdominal aorta. PELVIC VISCERA: Nonenlarged prostate gland or seminal vesicles. OSSEOUS STRUCTURES: Lumbar spondylosis from L2-3 to L5-S1. Electrode leads in the right heart chambers. CT/CT abdomen pelvis wo IV con IMPRESSION: Concerning enterocolitis in the correct clinical settings without intestinal obstruction pattern. Fat-containing umbilical hernia. 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 Fleischner guidelines were followed. Electronically signed by: Nikhil Kilpatrick MD 12/30/2024 11:04 AM EST RP Dictated By: Nikhil Dubois MD Signed By: <Electronically signed by Nikhil Mcdonnell MDin OV> 12/30/24 1104 DD/ 1026 TD/TT: 12/30/24 1039 Sales Promoter: [facility] External Provider IMG CT PROCEDURES Final Result * (ABNORMAL) VITAMIN D 25-OH (D2 AND D3) (12/28/2024 9:13 AM EST) Vitamin D, 25-OH, D2 <4 ng/mL [facility] Comment:This test was develo ped and its analytical performancecharacteristics have been determined by [place] It hasnot been cleared or approved by the U.S. Food and DrugAdministration. This assay has been validated pursuantto the CLIA regulations and is used for clinicalpurposes.THIS TEST WAS PERFORMED AT:[email or web address] [id number] [place] [address]VADUNEUNICKY VELASQUEZ MD,PHD Vitamin D, 25-OH, D3 29 ng/mL [facility] Comment:This test was develo ped and its analytical performancecharacteristics have been determined by [place] [facility]. It hasnot been cleared or approved by the U.S. Food and DrugAdministration. This assay has been validated pursuantto the CLIA regulations and is used for clinicalpurposes. Vitamin D, 25-OH, Total 29(A) 30 - 100 ng/mL [facility] Comment:Vitamin D, 25-Hydrox y reports concentrations of twocommon forms, 25-OHD2 and 25-OHD3. 25-OHD3 indicatesboth endogenous production and supplementation.25-OHD2 is an indicator of exogenous sources such asdiet or supplementation. Therapy is based onmeasurement of Total 25-OHD, with levels <20 ng/mLindicative of Vitamin D deficiency, while levelsbetween 20 ng/mL and 30 ng/mL suggest insufficiency.Optimal levels are > or = 30 ng/mL.For additional information, please refer [email or web address](This link is being provided for informational/educational purposes only.) 12/28/2024 9:13 AM EST 12/28/2024 6:11 PM EST us Generic External Data Provider LAB BLOOD ORDERAB LES Final Result Performing Organization Address City/State/[facility] Co de Phone Number [facility] [address] [place] [phone] * (ABNORMAL) CRP, HIGH SENSITIVITY (12/28/2024 9:13 AM EST) CRP, High Sensitivity 4.3(A) mg/L [facility] Comment: Reference RangeOptimal <1.0Jeedwige SMALLWOOD et al. Endocr Pract.2017;23(Suppl 2):1- 87.For ages >17 Years:hs-CRP mg/L ??Risk According to AHA/CDC Guidelines<1.0 ? Lower relative cardiovascular risk.1.0-3.0 ?Average relative cardiovascular risk.3.1-10.0 ? Higher relative cardiovascular risk. ? Consider retesting in 1 to 2 weeks to ? exclude a benign transient elevation ? in the baseline CRP value secondary ? to infection or inflammation.>10.0 ?Persistent elevation, upon retesting, ? may be associated with infection and ? inflammation.Janeth TA, Maurisio GA, Gigi RW, et al. Markersof inflammation and cardiovascular disease:application to clinical and public health practice:A statement for healthcare professionals from the[facility] for Disease Control and Prevention and theAmerican Heart Association. Circulation 2003; 107(3):499-511.THIS TEST WAS PERFORMED AT:[employer] [place] [address] ?? [id number] MORAN MD 12/28/2024 9:13 AM EST 12/28/2024 6:11 PM EST Generic External Data Provider LAB BLOOD ORDERAB LES Final Result Performing Organization Address [facility] Co de Phone Number [facility] [address] [place] [phone] * Vitamin B12 (Cobalamin) and Folate Panel, Serum (12/28/2024 9:13 AM EST) Vitamin B12 500 200 - 900 pg/mL [facility] Comment:NORMAL 200-900 PG/ML INDETERMINATE 160-199 PG/ML DEFICIENT < 160 PG/ML Folate 8.8 > or = 4.0 ng/mL [facility] Comment:Reference Values:> o r = 4.0 ng/mL< 4.0 ng/mL suggests folate deficiency Methotrexate, aminopterin and folinic acid(leucovorin) are chemotherapeutic agents whose molecularstructures are similar to folate; therefore, the Architectfolate assay cannot be used for patients using these drugs. 12/28/2024 9:13 AM EST 12/28/2024 6:09 PM EST Generic External Data Provider LAB BLOOD ORDERAB LES Final Result Performing Organization Address [facility] Co de Phone Number [facility] [address] [place] [phone] * TSH with Reflex to Free T4 (12/28/2024 9:13 AM EST) TSH reflex Free T4 1.98 0.32 - 4.0 uIU/mL [facility] 12/28/2024 9:13 AM EST 12/28/2024 6:09 PM EST us Generic External Data Provider LAB BLOOD ORDERAB LES Final Result [facility] [address] [place] [phone] * CBC auto differential (12/28/2024 9:13 AM EST) White Blood Count 6.8 4.8 - 10.8 X10*3/uL [facility] Red Blood Count 5.10 4.60 - 5.80 X10*6/uL [facility] Hemoglobin 15.0 14.0 - 18.0 g/dl [facility] Hematocrit 43.1 42.0 - 52.0 % [facility] Mean Corpuscular Volume 84.5 80.0 - 98.0 fL [facility] Mean Corpuscular Hemoglobin 29.4 27.0 - 33.0 pg [facility] Mean Corpuscular HGB Conc 34.8 31.0 - 36.0 g/dl [facility] Red Cell Distribution Width 13.3 11.0 - 16.0 % [facility] Platelet Count 215 160 - 400 X10*3/uL [facility] Mean Platelet Volume 11.2 9.4 - 12.4 fL [facility] Neutrophils Percent Auto 68.7 45 - 73 % [facility] Imm Gran Pct Auto 0.3 0.0 - 0.4 % [facility] Lymphocytes Percent Auto 21.8 20 - 40 % [facility] Monocytes Percent Auto 6.3 2 - 11 % [facility] Eosinophils Percent Auto 2.5 0 - 4 % [facility] Basophils Percent Auto 0.4 0 - 2 % [facility] NRBC Pct Auto 0.0 0.0 - 0.2 /100WBC [facility] Neutrophils Absolute Auto 4.7 2.0 - 8.3 x10*3/uL [facility] Imm Gran Abs Auto 0.02 0.00 - 0.03 X10*3/uL [facility] Lymphocytes Absolute Auto 1.5 1.2 - 4.9 X10*3/uL [facility] Monocytes Absolute Auto 0.4 0.1 - 1.2 X10*3/uL [facility] Eosinophils Absolute Auto 0.2 0.0 - 0.4 X10*3/uL [facility] Basophils Absolute Auto 0.0 0.0 - 0.2 X10*3/uL [facility] NRBC Abs Auto 0.000 0.0 - 0.012 X10*3/uL [facility] 12/28/2024 9:13 AM EST 12/28/2024 6:09 PM EST Generic External Data Provider LAB BLOOD ORDERAB LES Final Result Performing Organization Address [facility] de Phone Number [facility] [address] [place] [phone] * Sed Rate by Modified Westergren (12/28/2024 9:13 AM EST) Erythrocyte Sedimentation Rate 6 0 - 15 MM/HR [facility] Comment:Patients with polycy themia and many hemoglobin abnormalitiesmay have depressed sed rates whereas patients with anemiamay have elevated sed rates. 12/28/2024 9:13 AM EST 12/28/2024 6:09 PM EST us Generic External Data Provider LAB BLOOD ORDERAB LES Final Result Performing Organization Address [facility] Co de Phone Number [facility] [address] [place] [phone] * Magnesium (12/28/2024 9:13 AM EST) Magnesium 2.3 1.6 - 2.6 mg/dL [facility] 12/28/2024 9:13 AM EST 12/28/2024 6:09 PM EST us Generic External Data Provider LAB BLOOD ORDERAB LES Final Result Performing Organization Address City/[facility]/ZIP Co de Phone Number [facility] [address] [place] [phone] * Creatine Kinase, Total (12/28/2024 9:13 AM EST) Pathologist [facility] Creatine Kinase Total 171 38 - 174 U/L [facility] 12/28/2024 9:13 AM EST 12/28/2024 6:09 PM EST Generic External Data Provider LAB BLOOD ORDERAB LES Final Result Performing Organization Address [facility] Co de Phone Number [facility] [address] [place] [address] [phone] * (ABNORMAL) Comprehensive Metabolic Panel (12/28/2024 9:13 AM EST) Pathologist [facility] Sodium 139 135 - 145 mmol/L [facility] Potassium 4.2 3.3 - 5.1 mmol/L [facility] Chloride 105 96 - 108 mmol/L [facility] Carbon Dioxide 23 22 - 29 mmol/L [facility] Anion Gap 15 12 - 20 [facility] Urea Nitrogen (BUN) 25(H) 9 - 16 mg/dL [facility] Creatinine, Serum 1.63(H) 0.5 - 1.4 mg/dL [facility] Estimated Glomerular Filt Rate 44 [facility] Comment:Chronic Kidney Disea se: Estimated GFR < 60 mL/min/1.75u9Yokbyz Kidney Disease: Estimated GFR < 15 mL/min/1.73m2 Glucose 239(H) 60 - 115 mg/dL [facility] Calcium 9.5 8.4 - 10.2 mg/dL [facility] Bilirubin, Total 0.5 0.0 - 1.0 mg/dL [facility] Aspartate Amino Transferase 29 5 - 37 U/L [facility] Alanine Aminotransferase 32 0 - 40 U/L [facility] Total Protein 7.6 6.5 - 8.0 g/dL [facility] Albumin Level 4.4 3.5 - 5.0 g/dL [facility] Alkaline Phosphatase 64 39 - 117 U/L [facility] 12/28/2024 9:13 AM EST 12/28/2024 6:09 PM EST us Generic External Data Provider LAB BLOOD ORDERAB LES Final Result [facility] [address] [place] [phone] * (ABNORMAL) POCT HGB A1C (12/07/2024 11:21 AM EST) Hemoglobin A1C 8.7(A) 4.0 - 6.0 % QC Media Lot # [id number] Lot# Expiration Date Blood 12/07/2024 11:2 1 AM EST us Tor Bañuelos MD POINT OF CARE TEST EN TER/EDIT ORDERABLES Final Result * (ABNORMAL) Lipid Panel with Reflex to Direct LDL (09/09/2023 7:57 AM EST) Triglycerides 448(H) <150 mg/dL [facility] Comment:Desirable Triglyceri de: less than 150 mg/dLBorderline High Triglyceride 150-199 mg/dLHigh Triglyceride: 200-499 mg/dLVery High Triglyceride: greater than or equal to 5OO mg/dL Cholesterol 204(H) <200 mg/dL [facility] Comment:Desirable Cholestero l: less than 200 mg/dLBorderline High Cholesterol: 200-239 mg/dLHigh Cholesterol: greater than 239 mg/dL LDL Cholesterol Calculated TNP <100 mg/dL [facility] Comment:Unable to calculate the LDL. The formula of Friedwald,Shepherd, and Pearl is only valid if the triglycerides areless than 400 mg/dl. HDL Cholesterol 34(L) >40 mg/dL [facility] Comment:Desirable HDL: great er than 40 mg/dL Note: This HDL assay may give artificially low results in patients with liver disease. Blood 09/09/2023 7:57 AM EST 09/09/2023 7:57 AM EST us Tor Bañuelos MD LAB BLOOD ORDERABLES Final Result [facility] [address] [place] [address] [phone] * Colonoscopy (01/25/2022) Colonoscopy Normal Normal 01/25/2022 Narrative Radha Alves - 01/25/2022 2:56 PM EDT Recommended 10 year follow up ( see scanned notes) us Historical Provider HEALTH MAINTENANCE Edited Result - Final from Last 3 Months or Most Recently Relevant to Health Maintenance Insurance [facility] < [address] [place] [phone] DENTAL [facility] Care Teams Repairer Hairspring Relationship Specialty Start Date End Date Tor Crews MD [address] [place] [address] PCP - General Internal Medicine 07/21/14
--- OUTSIDE RECORDS SUMMARY | 2025-02-24 20:47 | XMS_ITS | Encounter Summary ---
Author Organization [employer] Address [address] 7t [place] [address] Care Team Providers Care Net Web Application Developer Name Role Phone Tor Crews MD Primary Care Provide r Encounter Details Date Type Department Care Team (Late Contact Info) Description 02/27/2023 Abstract [facility] [address] [place] [phone] Tor Crews MD 230 [place], [place] [phone] Social History Tobacco Use Types Packs/Day Years [...] Description 04/04/2025 11:00 AM EDT Office Visit [facility] ADULT DENT[facility] [address] [place] [address] [phone] Kristen Perez 05/17/2025 11:30 AM EDT Office Visit [facility] 230 [place], [place] [phone] Tor Crews MD 230 [place], [place] [phone] 06/01/2025 10:00 AM EDT Office Visit [facility]ULT [facility] [address] [place] [phone] ElizabethJuliann [address] [place] [address] documented as of this encounter Procedures Procedure Name Priority Date/Time Associated Diagnosis Comments COLONOSCOPY Routine 01/25/2022 documented in this encounter Results * Colonoscopy (01/25/2022) Colonoscopy Normal Normal 01/25/2022 Vanesa Radha Alves - 01/25/2022 2:56 PM EDT Recommended 10 year follow up ( see scanned notes) us Historical Provider Plaid [facility] Edited Result - Final documented in this encounter Visit Diagnoses Not on filedocumented in this encounter Care Teams Net Web Application Developer Relationship Specialty Start Date End Date Tor Crews MD [address] [place], [place] [phone] PCP - General Internal Medicine 07/21/14 documented as of this encounter
--- OUTSIDE RECORDS SUMMARY | 2025-02-24 20:47 | XMS_ITS | Encounter Summary ---
Author Organization [employer] Address [address] [facility] [address] 7t [place] [address] Care Team Providers Care Solid Waste Facility Operator Name Role Phone Tor Crews MD Primary Care Provide r Encounter Details Date Type Department Care Team (Late st Contact Info) Description 10/30/2022 Orders Only [facility] PEDS [address] [place], [place] [phone] Mahsa Bustillos LPN Social History Tobacco Use [...] Description 04/04/2025 11:00 AM EDT Office Visit [facility] ADULT DENTAL 230 [place] [address] Kristen Perez 05/17/2025 11:30 AM EDT Office Visit [facility] [address] [place] [address] Tor Crews MD 230 [place] [address] 06/01/2025 10:00 AM EDT Office Visit [facility] ADULT DENTAL 230 [place] [address] Juliann Johnson [address] [place] [address] [phone] documented as of this encounter Visit Diagnoses Not on filedocumented in this encounter Care Teams Solid Waste Facility Operator Relationship Specialty Start Date End Date Tor Crews MD 230 [place] [address] PCP - General Internal Medicine 07/21/14 documented as of this encounter
--- OUTSIDE RECORDS SUMMARY | 2025-02-24 20:47 | XMS_ITS | Encounter Summary ---
Author Organization [employer] Address [address] [facility] 7[address] [place] [address] Care Team Providers Care Medical Detailist Name Role Phone Tor Crews MD Primary Care Provide r Encounter Details Date Type Department Care Team (Late st Contact Info) Description 11/28/2022 Abstract [facility] [address] [place] [address] Tor Crews MD 230 [place], [place] [phone] Social History Tobacco Use Types Packs/Day Years [...] 04/04/2025 11:00 AM EDT Office Visit [facility] ADULT DENTAL 230 [place], [place] [phone] Kristen Perez 05/17/2025 11:30 AM EDT Office Visit [facility] 230 [place], [place] [phone] Tor Crews MD 230 [place] [address] 06/01/2025 10:00 AM EDT Office Visit [facility] ADULT DENT[facility] 230 [place], [place] [phone] Juliann Johnson [address] [place] [address] [phone] documented as of this encounter Visit Diagnoses Not on filedocumented in this encounter Care Teams Medical Detailist Relationship Specialty Start Date End Date Tor Crews MD 230 [place] [address] PCP - General Internal Medicine 07/21/14 documented as of this encounter
--- OUTSIDE RECORDS SUMMARY | 2025-02-24 20:47 | XMS_ITS | Encounter Summary ---
Author Organization [employer] Address [address] [facility] [address] 7t [place] [address] Care Team Providers Care Nursery Attendant Name Role Phone Tor Crews MD Primary Care Provide r Reason for Visit * Reason Onset Date Comments Hospital Follow-up 10/26/2024 Encounter Details Date Type Department Care Team ([facility] st Contact Info) Description 10/26/2024 Telephone [facility] 230 [place], [place] [phone] Tor Crews MD 230 [place], [place] [phone] Hospital Follow-up Social History Tobacco Use Types [...] from pt requesting a HDF appt. Hospital: [facility] Date of admission: 10/20/2024 Discharge date: 10/25/2024 Diagnosed: Asthma *Send message to [place] Clinical Care Coordinators documented in this encounter Plan of Treatment Upcoming Encounters Date Type Department Care Team (Late st Contact Info) Description 04/04/2025 11:00 AM EDT Office Visit [facility] [address] [place] [address] Kristen Perez 05/17/2025 11:30 AM EDT Office Visit [facility] 230 [place] [address] Tor Crews MD 230 [place] [address] 06/01/2025 10:00 AM EDT Office Visit [facility] 230 [place] [address] Juliann Johnson [address] [place] [phone] documented as of this encounter Visit Diagnoses Not on filedocumented in this encounter Additional Health Concerns Assessment Noted Time PHQ-9 Depression Total Score: 4 03/04/20 23 2:58 PM EDT documented as of this encounter Care Teams Nursery Attendant Relationship Specialty Start Date End Date Tor Crews MD [address] [place] [address] PCP - General Internal Medicine 07/21/14 documented as of this encounter
--- OUTSIDE RECORDS SUMMARY | 2025-02-24 20:47 | XMS_ITS | Encounter Summary ---
Author Organization [employer] Address [address] [facility] 7t [place] [address] Care Team Providers Care Truss Builder Name Role Phone Tor Cresw MD Primary Care Provide r Reason for Visit * Reason Comments Med Refill Encounter Details Date Type Department Care Team (Late st Contact Info) Description 05/23/2023 Refill [facility] 230 [place], [place] [phone] Tor Crews MD 230 [place], [place] [phone] Acute pain of right knee Social History [...] Description 04/04/2025 11:00 AM EDT Office Visit [facility] ADULT DENTAL 230 [place], [place] [phone] Kristen Perez 05/17/2025 11:30 AM EDT Office Visit [facility] 230 [place] [address] Tor Crews MD 230 [place] [address] 06/01/2025 10:00 AM EDT Office Visit [facility] ADULT DENTAL 230 [place], [place] [phone] Juliann Johnson [address] [place] [address] [phone] documented as of this encounter Visit Diagnoses Diagnosis Acute pain of right knee documented in this encounter Additional Health Concerns Assessment Noted Time PHQ-9 Depression Total Score: 4 03/04/20 23 2:58 PM EDT documented as of this encounter Care Teams Truss Builder Relationship Specialty Start Date End Date Tor Crews MD 230 [place] [address] PCP - General Internal Medicine 07/21/14 documented as of this encounter
--- OUTSIDE RECORDS SUMMARY | 2025-02-24 20:47 | XMS_ITS | Clinical Summary ---
Author Organization [facility] Address [address] [place] [address] Phone Care Team Providers Care Deputy Fire Chief Name Role Phone Tor Guzman MD Primary [...] Gastroesophageal reflux disease 01/11/2013 Cardiomyopathy 01/11/2013 Immunizations Immunization Administration Dates Next Due Influenza Split 08/25/2013 [...] A1C 10/14/2023 023, 05/13/2023, 02/05/2023 Influenza Vaccine (Season Ended) 2025 10/26/20 15, 08/25/2013 Colorectal Cancer Screening: Colonoscopy 01/26/2032 01/25/2022 Pneumococcal Vaccine: 50+ Years Completed Pneumococcal Vaccine: Peds ( 0 to 5 Years) and At-Risk Patients (6 to 49 Years) Discontinued 04/17/2023 Insurance [facility] ([id number]) [place] [address] [facility] MCR ([id number]) Care Teams Deputy Fire Chief Relationship Specialty Start Date End Date Tor Guzman MD PCP - General 11/06/20
--- OUTSIDE RECORDS SUMMARY | 2025-02-24 20:47 | XMS_ITS | Clinical Summary ---
Author Organization [facility] Address [address] [place] [address] Phone Care Team Providers Care National Stormwater Leader Name Role Phone Tor Villela MD Primary Care Provi pepe Allergies No known active allergies Medications No known medications Encounters Date Type Department Care Team Description 02/01/2025 9:45 AM EDT Consult Orthopedic [facility] [address] [phone] Tod Little DPM Metatarsalgia of right foot (Primary Dx); Pain in right foot from Last 3 Months Social History Tobacco Use Types Packs/Day Years Used Date Smoking Tobacco: Never Assessed Sex and Gender Information Value Date Recorded Sex Assigned at Not on file Legal Sex Male 4:33 AM EST Gender Identity Not on file Sexual Orientation Not on file Last Filed Vital Signs Vital Sign Reading Time Taken Comments Blood Pressure - - Pulse - - Temperature - - Respiratory Rate - - Oxygen Saturation - - Inhaled Oxygen Concentration - - Weight 90.7 kg (200 lb) 02/01/2025 10:14 AM EDT Height 170.2 cm (5' 7 ) 02/01/2025 10:14 AM EDT Body Mass Index 31.32 02/01/2025 10:14 AM EDT Plan of Treatment Upcoming Encounters Date Type Department Care Team (Late st Contact Info) Description 03/03/2025 10:15 AM EDT Office Visit [facility] [address] [phone] Tod Little DPM [address] [phone] Health Maintenance Due Date Last Done Comments Diabetes: Annual Foot Exam 1981 Diabetes: Annual Retina Eye Exam 1981 COVID-19 Vaccine ( season) 2024 11/20/2021, 01/10/2021, 12/20/2020 Hepatitis B Vaccines (2 of 3 - 19+ 3-dose series) 10/19/2024 09/21/2024 Cholesterol Screening (Lipid Panel) 11/26/2024 Colorectal Cancer Screening: Colonoscopy 11/26/2024 Depression Screening 11/26/2024 03/04/2023 HIV Screening 11/26/2024 Hepatitis C Screening 11/26/2024 Medicare Annual Wellness Visit 11/26/2024 Social Influencers of Health Screening 11/26/2024 Diabetes: Annual Urine Albumin-Creatinine Ratio (uACR) 02/01/2025 Diabetes: Blood Sugar Control Test (HGBA1C) 06/06/2025 12/07/2024, 07/01/2024 Diabetes: Annual GFR (Glomerular Filtration Rate) 12/28/2025 12/28/2024, 11/03/2024 Hypertension/CHF/CAD Annual BMP Blood Test 12/28/2025 12/28/2024, 11/03/2024 DTaP,Tdap,and Td Vaccines (3 - Td or Tdap) 10/16/2034 10/16/2024, 10/26/2015 Pneumococcal Vaccine: 50+ Years Completed 04/17/2023, 02/03/2012 Pneumococcal Vaccine: Pediatrics (0 to 5 Years) [...] age to complete this topic Meningococcal B Vaccine Aged Out No l onger eligible based on patient's age to complete this topic RSV Immunization Patients Under 20 months Aged Out No longer eligible based on patient's age to complete this topic Varicella Vaccines Aged Out No longer eligible based on patient's age to complete this topic Insurance MEDICAID - [place] [employer] MEDICARE Member Subscriber Plan / Payer (Ef fective 2019-Present) Name:Ian Godinez Relation to Subscriber:Self Name:Ian Godinez Payer ID:[id number] Group ID:[id number] Type:Not on file Address: [address] [place] [address] Care Teams National Stormwater Leader Relationship Specialty Start Date End Date Tor Villela MD [address] [place] [address] [place] [address] PCP - General 07/29/24
== END ==
LOC: HO.SL 19:30
PROVIDERS: PCP Internal Medicine; Visit Provider Nurse Practitioner Family
DX: G47.33 Obstructive sleep apnea (adult) (pediatric) (principal); G25.81 Restless legs syndrome
CPT/HCPCS: 95810

== ENCOUNTER → 2025-02-24 22:30 | Outpatient (BNV) | payer OTHER, SELFPAY | PROVIDERS: PCP Internal Medicine; Visit Provider Psychiatry & Neurology Neurology | DX: G47.33 Obstructive sleep apnea (adult) (pediatric) (principal); G47.61 Periodic limb movement disorder | CPT/HCPCS: 95810 ==

== ENCOUNTER 2025-03-14 08:39 | Outpatient (REF) | payer OTHER, SELFPAY ==
--- OUTSIDE RECORDS SUMMARY | 2025-03-14 08:45 | XMS_ITS | Encounter Summary ---
Author Organization [employer] Address 75 [facility] 7t [place] [address] Care Team Providers Care Director Of Logistics Name Role Phone Tor Crews MD Primary Care Provide r Reason for Visit * Reason Comments Med Refill Encounter Details Date Type Department Care Team ([facility] st Contact Info) Description 11/18/2024 Refill [facility] 230 [place], [place] [phone] Tor Crews MD 230 [place], [place] [phone] Type 2 diabetes mellitus without complications (CMS/HCC) [...] Description 04/04/2025 11:00 AM EDT Office Visit [facility] ADULT D[facility] [address] [place] [address] Kristen Perez 05/17/2025 11:30 AM EDT Office Visit [facility] 230 [place] [address] Tor Crews MD [address] [place] [address] 06/01/2025 10:00 AM EDT Office Visit [facility] 230 [place] [address] Juliann Johnson [address] [place] [address] [phone] documented as of this encounter Visit Diagnoses Diagnosis Type 2 diabetes mellitus without complications (CMS/HCC) documented in this encounter Additional Health Concerns Assessment Noted Time PHQ-9 Depression Total Score: 4 03/04/20 23 2:58 PM EDT documented as of this encounter Care Teams Director Of Logistics Relationship Specialty Start Date End Date Tor Crews MD [address] [place] [address] PCP - General Internal Medicine 07/21/14 documented as of this encounter
--- OUTSIDE RECORDS SUMMARY | 2025-03-14 08:45 | XMS_ITS | Encounter Summary ---
Author Organization [email or web address] Address 75 [facility] 7t [place] [address] Care Team Providers Care Emu Farmer Name Role Phone Tor Crews MD Primary Care Provide r Reason for Visit * Reason Comments Med Refill Encounter Details Date Type Department Care Team (Late st Contact Info) Description 05/23/2023 Refill [facility] 230 [place], [place] [phone] Tor Crews MD 230 [place], [place] [phone] Acute pain of right knee Social History [...] Description 04/04/2025 11:00 AM EDT Office Visit [facility] ADULT DENTAL 230 [place], [place] [phone] Kristen Perez 05/17/2025 11:30 AM EDT Office Visit [facility] 230 [place] [address] Tor Crews MD 230 [place] [address] 06/01/2025 10:00 AM EDT Office Visit [facility] ADULT DENTAL 230 [place], [place] [phone] Juliann Johnson [address] [place] [address] [phone] documented as of this encounter Visit Diagnoses Diagnosis Acute pain of right knee documented in this encounter Additional Health Concerns Assessment Noted Time PHQ-9 Depression Total Score: 4 03/04/20 23 2:58 PM EDT documented as of this encounter Care Teams Emu Farmer Relationship Specialty Start Date End Date Tor Crews MD 230 [place] [address] PCP - General Internal Medicine 07/21/14 documented as of this encounter
--- OUTSIDE RECORDS SUMMARY | 2025-03-14 08:45 | XMS_ITS | Encounter Summary ---
Author Organization [employer] Address [address] [facility] [address] 7t [place] [address] Care Team Providers Care Radio Performer Name Role Phone Tor Cerws MD Primary Care Provide r Encounter Details Date Type Department Care Team (Late st Contact Info) Description 12/17/2022 Orders Only [facility] [address] [place] [address] Ally Rodríguez LPN Social History Tobacco Use [...] Description 04/04/2025 11:00 AM EDT Office Visit [facility] ADULT DENTAL 230 [place] [address] Kristen Perez 05/17/2025 11:30 AM EDT Office Visit [facility] [address] [place] [address] Tor Crews MD 230 [place] [address] 06/01/2025 10:00 AM EDT Office Visit [facility] ADULT DENT[facility] 230 [place] [address] Juliann Johnson [address] [place] [phone] documented as of this encounter Visit Diagnoses Not on filedocumented in this encounter Care Teams Radio Performer Relationship Specialty Start Date End Date Tor Crews MD [address] [place] [address] PCP - General Internal Medicine 07/21/14 documented as of this encounter
--- OUTSIDE RECORDS SUMMARY | 2025-03-14 08:45 | XMS_ITS | Encounter Summary ---
Author Organization [employer] Address [address] [facility] [address] [address] 7t [place] [address] Care Team Providers Care Wool Hat Forming Machine Tender Name Role Phone Tor Crews MD Primary Care Provide r Reason for Visit * Reason Comments Med Refill Encounter Details Date Type Department Care Team (Late st Contact Info) Description 12/19/2023 Refill [facility] & PEDS [address] [place], [place] [phone] Sinai Sesay MD 230 [place] [address] Social History Tobacco Use Types Packs/Day Years [...] Description 04/04/2025 11:00 AM EDT Office Visit [facility] ADULT DENTAL [address] [place] [address] Kristen Perez 05/17/2025 11:30 AM EDT Office Visit [facility] MEDICINE [address] [place] [address] Tor Crews MD [address] [place] [address] 06/01/2025 10:00 AM EDT Office Visit [facility] ADULT DENTAL 230 [place] [address] Juliann Johnson [address] [place] [address] [phone] documented as of this encounter Visit Diagnoses Not on filedocumented in this encounter Additional Health Concerns Assessment Noted Time PHQ-9 Depression Total Score: 4 03/04/20 23 2:58 PM EDT documented as of this encounter Care Teams Wool Hat Forming Machine Tender Relationship Specialty Start Date End Date Tor Crews MD [address] [place] [address] PCP - General Internal Medicine 07/21/14 documented as of this encounter
--- OUTSIDE RECORDS SUMMARY | 2025-03-14 08:45 | XMS_ITS | Encounter Summary ---
Author Organization [employer] Address [address] [facility] [address] 7t [place] [address] Care Team Providers Care Associate Sales Name Role Phone Tor Crews MD Primary Care Provide r Reason for Visit * Reason Comments Med Refill Encounter Details Date Type Department Care Team ([facility] st Contact Info) Description 08/07/[address] [facility] 230 [place], [place] [phone] Tor Crews MD 230 [place], [place] [phone] Hypertriglyceridemia Social History Tobacco Use Types Packs/Day [...] Description 04/04/2025 11:00 AM EDT Office Visit [facility] ADULT DENTAL [address] [place] [address] Kristen Perez 05/17/2025 11:30 AM EDT Office Visit [facility] [address] [place] [address] Tor Crews MD [address] [place] [address] 06/01/2025 10:00 AM EDT Office Visit [facility] ADULT DENTAL 230 [place] [address] Juliann Johnson [address] [place] [address] [phone] documented as of this encounter Visit Diagnoses Diagnosis Hypertriglyceridemia Pure hyperglyceridemia documented in this encounter Additional Health Concerns Assessment Noted Time PHQ-9 Depression Total Score: 4 03/04/20 23 2:58 PM EDT documented as of this encounter Care Teams Associate Sales Relationship Specialty Start Date End Date Tor Crews MD [address] [place] [address] PCP - General Internal Medicine 07/21/14 documented as of this encounter
--- OUTSIDE RECORDS SUMMARY | 2025-03-14 08:45 | XMS_ITS | Patient Health Record ---
Author Organization [facility] Address [address] [place] [address] Care Team Providers Care Zyglo Inspector Name Role Phone Megan Bañuelos MD, Tor Primary Care Provide r Unavailable Juan M Morel Unavailable [phone] Allergies No Known Allergies Reason For Referral [...] D3 25 MCG TAKE 1 TABLET BY IONAA TH EVERY MORNING Oral for 90 Active [...] Problem Status W/U Status Risk Notes Problem [id number] Encounter for screening for malignant neoplasm of colon (Z12.11) Active confirmed Problem Gastritis (9908745) Gastritis (K29.70) Active confirmed Problem Gastroesophageal reflux (K21.9) Active confirmed Problem Diverticulosis of colon (918888240) Diverticulosis of colon (K57.30) Active confirmed Problem [id number] Gastroesophageal reflux disease, unspecified whether esophagitis present (K21.9) Active confirmed Plan Of Treatment Pending Test Test Name Order Date Pathology 01/25/2022 Future Test Test Name Order Date UPPER GI ENDOSCOPY 10/09/2021 COLONOSCOPY 10/09/2021 Insurance Providers Payer Name Payer Address Payer Phone Subscriber Number Group Number Insured Name Patient Relationship to Insured Coverage Start Date Coverage End Date [facility] [address] [place] [address] [id number] CARMINA LOMAX Self - patient is the insured Medical (General) History Medical History History ICD Code GERD IDDM Hypertension Nonischemic cardiomyopathy-Johnny Nielson---seen at [facility] in [place] for ? cardiac transplant, but not on active list Sleep apnea- cpap machine Depression CHF Hyperlipidemia CKD stage 3 Asthma Pacemaker Denies [place],CVA Surgical History Surgery Date(Month/Year) Pacemaker 2008
--- OUTSIDE RECORDS SUMMARY | 2025-03-14 08:45 | XMS_ITS | Clinical Summary ---
Author Organization [employer] Address [address] [facility] [address] [place] [address] Care Team Providers Care Workforce Management Coordinator Name Role Phone Tor Crews MD Primary [...] 2 diabetes mellitus without complication, unspecified whether shelter insulin use (CMS/HCC) take 1 tablet by oral route every day in the morning 90 tablet 1 023 Active atorvastatin (Lipitor) 40 MG tablet TAKE 1 TABLET BY MOUTH AT BEDTIME 90 tablet 3 023 Active Alcohol Swabs (Alcohol Prep) 70 % pads USE TWICE DAILY 100 each 11 023 Active aspirin (Aspirin Low Dose) 81 MG EC tabletIndications :Cardiomyopathy, unspecified type ([facility]/HCC) TAKE 1 TABLET BY MOUTH EVERY EVENING [...] disease, with long-term current use of insulin ([facility]) Use to test blood sugar 3 times daily 100 each 12 024 2024 Active Blood Glucose Monitoring Suppl (FreeStyle [place] Lite) w/Device kitIndications:Ty pe 2 diabetes mellitus with stage 3b chronic kidney disease, with long-term current use of insulin ([facility]) Use to test blood sugar 3 [...] disease, with long-term current use of insulin (CMS/[facility]) Inject 2 mg under the skin [...] each 11 025 Active Pentips Generic Pen [place] 32G X 4 MM misc USE DIRECTED [...] DIRECTIONS Active cholecalciferol (Vitamin D-3) 1.25 MG (46783 UT) capsule Take 1 capsule by mouth [...] for a HDF He was admitted to [facility] from 10/21-10/25/2024 After he presented with worsening [...] See image in chart. -Cleaned and used [place] cary to close laceration. -ER precautions discussed. [...] a HDF after a recent admission to [facility] for a syncopal episode. Pt presented to [...] of Carvedilol, Enteresto and Spironoloactone. Followed by card grinder helper who recommended to keep all his medications [...] titers were negative, HIV (neg 12/[address] [facility]) , SAMEER (neg 01/03/[address] [facility] ) , ADRIÁN level was normal. Pt is s/p ICD placement in 2008 ([employer]) Follows at the HF clinic , last seen 07/2022 Dr. Nielson recommended to Continue current neurohormonal modulation with Entresto, Daily weight monitoring and avoidance of salt loading . Continue aggressive blood pressure control. Encouraged to continue to participate in physical activity as tolerated and participate in weight loss program. He has done extremely well with medical management despite no CORPORATE COMPLIANCE OFFICER. He was advised to continue to follow at [facility] for heart transplant evaluation.on annual [...] titers were negative, HIV (neg 12/[address] [facility]) , SAMEER (neg 01/03/[address] [facility] ) , ADRIÁN level was normal. Pt is s/p ICD placement in 2008 ([employer]) Follows at the HF clinic , last seen 07/2022 Dr. Nielson recommended to Continue current neurohormonal modulation with Entresto, Daily weight monitoring and avoidance of salt loading . Continue aggressive blood pressure control. Encouraged to continue to participate in physical activity as tolerated and participate in weight loss program. He has done extremely well with medical management despite no CORPORATE COMPLIANCE OFFICER. He was advised to continue to follow at [facility] for heart transplant evaluation.on annual [...] titers were negative, HIV (neg 12/[address] [facility]) , SAMEER (neg 01/03/[address] [facility] ) , ADRIÁN level was normal. Pt is s/p ICD placement in 2008 ([place] [employer]) Follows at the HF clinic , [...] extremely well with medical management despite no CORPORATE COMPLIANCE OFFICER. He was advised to continue to follow at [facility] for heart transplant evaluation.on annual basis. Last seen 07/14/2024 He was last seen by Dr Nielson 02/25/2024 His Carvedilol was replaced with Toprol X: 12.5 mg One tablet Daily His Entresto was lowered to 24-26 mg BID His Lasix was lowered to 40 mg once Daily by Dr Rich at [facility] Assessment & Plan (03/23/2024 11:09 AM EDT): Patient is here for a f/u He has non-ischemic cardiomyopathy diagnosed in 2008 (etiology ? NANO ? ETOH relate ? Pt gives a Hx of over 20 years of very heavy drinking. Basic blood work to r/o other etiologies: TSH 06/09/2013 was wnl, , Lyme titers were negative, HIV (neg 12/[address] [facility]) , SAMEER (neg 01/03/[address] [facility] ) , ADRIÁN level was normal. Pt is s/p ICD placement in 2008 ([employer]) Follows at the HF clinic , last [...] extremely well with medical management despite no CORPORATE COMPLIANCE OFFICER. He was advised to continue to follow with Dr Rivas at [facility] for heart transplant evaluation.on annual [...] titers were negative, HIV (neg 12/[address] [facility]) , SAMEER (neg 01/03/[address] [facility] ) , ADRIÁN level was normal. Pt is s/p ICD placement in 2008 ([place] [employer]) Follows at the HF clinic , [...] extremely well with medical management despite no CORPORATE COMPLIANCE OFFICER. Dr Nielson recommended Follow-up echocardiogram in 1 month's time. He was advised to continue to follow with Dr Rivas at [facility] for heart transplant evaluation.on annual [...] titers were negative, HIV (neg 12/[address] [facility]) , SAMEER (neg 01/03/[address] [facility] ) , ADRIÁN level was normal. Pt is s/p ICD placement in 2008 ([place] [employer]) Follows at the HF clinic , last seen 07/2022 Heart failure with reduced ejection fraction with much improved LV ejection fraction 40-45% with much improved symptoms with NYHA class 1 symptoms. Last seen by Dr. Nielson 05/12/2023 He was advised to continue to follow with Dr Rivas at [facility] for heart transplant evaluation.on annual [...] extremely well with medical management despite no CORPORATE COMPLIANCE OFFICER. Dr Nielson recommended Follow-up echocardiogram in 1 [...] titers were negative, HIV (neg 12/[address] [facility]) , SAMEER (neg 01/03/[address] [facility] ) , ADRIÁN level was normal. last EF 20-25% 2017 Pt is s/p ICD placement in 2008 ([employer]) Follows at the HF clinic , last seen 07/2022 Pt tells me he has a f/u with Dr. Nielson as well He was advised to continue to keep appointment with Dr Rivas at [facility] for heart transplant evaluation. CKD stage 3 secondary to diabetes 12/26/2015 Assessment & Plan (12/07/2024 11:25 AM EST): Under the care of Nephrology, last seen 12/01/2024 Dr. Bonilla his garage construction equipment mechanic Lab Results Component Value Date GLUCOSE 340 (H) 10/16/2024 NA 140 11/23/2024 K 4.3 11/23/2024 CO2 24 11/23/2024 CL 110 (H) 11/23/2024 BUN 17 (H) 11/23/2024 CREATININE 1.56 (H) 11/23/2024 Assessment & Plan (11/18/2024 1:39 PM EST): Under the care of Nephrology, last seen 09/03/2024 Dr. Bonilla his garage construction equipment mechanic Lab Results Component Value Date GLUCOSE 340 (H) 10/16/2024 NA 137 10/16/2024 K 3.8 10/16/2024 CO2 20 (L) 10/16/2024 CL 107 10/16/2024 BUN 30 (H) 10/16/2024 CREATININE 1.65 (H) 10/16/2024 Will repeat Assessment & Plan (09/21/2024 12:58 PM EST): Under the care of Nephrology, last seen 09/03/2024 Dr. Bonilla his garage construction equipment mechanic Assessment & Plan (07/27/2024 11:47 AM EDT): Under the care of Nephrology, last seen 03/05/2024 Dr. Bonilla his garage construction equipment mechanic Assessment & Plan (03/23/2024 11:01 AM EDT): Under the care of Nephrology, last seen 03/05/2024 Dr. Chad campbell garage construction equipment mechanic Assessment & Plan (11/25/2023 12:08 PM EST): Under the care of Nephrology, last seen 07/16/2023. Dr. Bonilla his garage construction equipment mechanic Assessment & Plan (06/10/2023 9:25 AM EDT): Under the care of Nephrology, last seen 12/2022. I sent a message via [employer] to Dr. Bonilla his garage construction equipment mechanic letting him know I am starting patient [...] low fat low cholesterol diet, Referred to Head Of Training And Development. RENITA Atorvastatin . Start Fenofibrate Follow up [...] mg po BID ( was restarted by [employer] in [place]). He stopped taking the Trulicity due to [...] a week His Metformin was restarted by [employer] in [place] 500 mg po BID once a day [...] a week His Metformin was restarted by [employer] in [place] 500 mg po BID once a day [...] 25 mg, His Metformin was restarted by [employer] in [place] 500 mg po BID once a day [...] 25 mg, His Metformin was restarted by [employer] in [place] 500 mg po BID once a day [...] 1.5 mg His Metformin was restarted by [employer] in [place] 500 mg po BID Plan: No changes [...] a psychotherapist her name is Aj at [facility] . He used to see Dr. Colon but stopped due to lack of transportation His biggest complaint was lack of sleep. I have agreed to prescribe trazodone 100 mg po q hs prn. Obstructive sleep apnea syndrome 01/21/2013 Assessment & Plan (03/23/2024 10:59 AM EDT): Under the care of bankruptcy law specialist (Dr Rucker). [facility] 01/27/2024 Awaiting Cpap Assessment & Plan (11/25/2023 11:58 AM EST): Sleep study done on 03/08/2013 confirmed the diagnosis of moderately severe NANO. Pt reported compliance with Cpap machine And is now under the care of bankruptcy law specialist (Dr Rucker). Awaiting Cpap Assessment & Plan (05/13/2023 8:57 AM EDT): Sleep study done on 03/08/2013 confirmed the diagnosis of moderately severe NANO. Pt reported compliance with Cpap machine And is now under the care of bankruptcy law specialist (Dr Rucker). He told me his Cpap was no longer working and needed a new one He was referred back for Sleep study, to sleep clinic. Appointment scheduled for 05/16/2023 Assessment & Plan (03/04/2023 3:01 PM EDT): Sleep study done on 03/08/2013 confirmed the diagnosis of moderately severe NANO. Pt reported compliance with Cpap machine And is now under the care of bankruptcy law specialist (Dr Rucker). He tells me his Cpap is no longer working and needs a new one Plan: Sleep study, will refer to sleep clinic Cardiomyopathy 01/11/2013 Gastroesophageal reflux disease 01/11/2013 Resolved Problems Problem Noted Date Diagnosed Date Resolved Date Ingrowing nail, right great toe 10/06/2017 11/25/2023 Assessment & Plan (07/15/2023 3:25 PM EDT): Pt tells me the bi tri operator requested authorization from PCP to take care of his ingrown toe nail Plan: Podiatry referral Congestive heart failure 01/21/2013 Encounters Date Type Department Care Team Description 03/12/2025 Refill [facility] [address] [place] [address] Tor Crews MD Type 2 diabetes mellitus without complication, with long-term current use of insulin ([facility]) 03/09/2025 Refill [facility] [address] [place] [address] Tor Crews MD Type 2 diabetes mellitus with stage 3b chronic kidney disease, with long-term current use of insulin (CMS/HCC) 03/07/2025 1:00 PM EDT Office Visit [facility] [address] [facility] [place] [address] Socorro Marinelli, DDS Tooth missing (Primary Dx) 02/22/2025 2:30 PM EDT Office Visit [facility] [address] [facility] [place] [address] Socorro Marinelli DDS 02/17/2025 Refill [facility] [address] [facility] [place] [address] Tor Crews MD 02/17/2025 Refill [facility] [address] [facility] [place] [address] Sinai Sesay MD 02/10/2025 1:00 PM EDT Office Visit [facility] [address] [facility] [place] [address] Tor Crews MD Type 2 diabetes mellitus with stage 3b chronic kidney disease, with long-term current use of insulin (CMS/[facility]) (Primary Dx) 02/10/2025 Travel 02/10/2025 Telephone [facility] [address] [facility] [place] [address] Tor Crews MD Durable Medical Equipment 01/28/2025 Telephone [facility] [address] [facility] [place] [address] Tor Crews MD [employer] [facility] [employer] (Cardinal heavy xlg, Incontinence supply, glove, exam vnyl lg, reusable jaylene pad.) 01/25/2025 Telephone [facility] [address] [facility] [place] [address] Socorro Marinelli DDS 01/25/2025 Telephone [facility] [address] [place] [address] Tor Crews MD Chart Prep 01/20/2025 11:00 AM EDT Office Visit [facility] [address] [place] [address] Perez, Kristen Subgingival dental calculus (Primary Dx); Dental plaque 01/19/2025 Telephone [facility] [address] [place] [phone] Tor Crews MD 01/19/2025 Refill [facility] [address] [place] [phone] Tor Crews MD Type 2 diabetes mellitus with stage 3b chronic kidney disease, with long-term current use of insulin ([facility]) 01/19/2025 Refill [facility] [address] [place], [place] [phone] Ashley Matute MD 01/06/2025 Telephone [facility] [address] [place] [phone] Tor Crews MD 01/05/2025 Telephone [facility] [address] [place] [phone] Tor Crews MD Chart Prep 01/01/2025 9:40 AM EST Office Visit [facility] [address] [place] [phone] Name, MD Remy Norovirus (Primary Dx); Vomiting and diarrhea 01/01/2025 Travel 12/31/2024 Telephone [facility] [address] [place] [phone] Gloria Mcdonnell, SITE SAFETY MANAGER Follow-up 12/30/2024 Orders Only GENERIC EXTERNAL DATA DEPARTMENT Provider, Generic External Data 12/28/2024 Orders Only GENERIC EXTERNAL DATA DEPARTMENT Provider, Generic External Data 12/19/2024 Refill [facility] [address] [place] [phone] Tor Crews MD Seasonal allergies from Last 3 Months Immunizations Immunization Administration Dates Next Due Hep B, adult [...] 04/04/2025 11:00 AM EDT Office Visit [facility] [address] [place] [phone] Kristen Perez 05/17/2025 11:30 AM EDT Office Visit [facility] [address] [place] [address] Tor Crews MD [address] [place] [address] 06/01/2025 10:00 AM EDT Office Visit [facility] [address] [place] [address] Juliann Johnson [address] [place] [address] [id number] Health Maintenance Due Date Last Done Comments [...] Alcohol/Substance Use Screening 12/07/2025 12/07/2024 Tobacco Screening 03/07/2026 03/07/2025 Eye Exam 07/02/2026 07/02/2024, 03/2024, 07/02/2024, Additional [...] Procedure Name Priority Date/Time Associated Diagnosis Comments CASE PRESENTATION, DETAILED AND EXTENSIVE TREATMENT PLANNING Routine 03/07/2025 1:00 PM EDT Tooth missing 3 ADD TOOTH TO EXISTING PARTIAL DENTURE Routine 03/07/2025 1:00 PM EDT Tooth missing DENTURE IMPRESSION Routine 02/22/2025 2: 30 PM EDT POCT GLUCOSE Routine 02/10/2025 1:15 PM EDT Type 2 diabetes mellitus with stage 3b chronic kidney disease, with long-term current use of insulin ([facility]) CASE PRESENTATION, DETAILED AND EXTENSIVE TREATMENT [...] METABOLIC PANEL Routine 12/28/2024 9:13 AM EST POCT GLYCATED HEMOGLOBIN, TOTAL Routine 12/07/2024 11:21 AM EST Type 2 diabetes mellitus with stage 3b chronic kidney disease, with long-term current use of insulin ([facility]) PROPHYLAXIS - ADULT Routine 11/29/2024 1 0:00 [...] glucose manually resulted (02/10/2025 1:15 PM EDT) Glucose Blood, POC 224(A) 60 - 200 mg/dL QC Media Lot # [id number] Lot# Expiration Date [id number] Blood Capillary blood specimen / Unknown 02/10/2025 1:15 PM EDT us Tor Bañuelos MD POINT OF CARE TEST EN TER/EDIT ORDERABLES Final Result * POCT Rapid Influenza B HENRY ID NOW (01/01/2025 9:10 AM EST) Influenza B Negative Negative, Indeterminate [facility] QC Media Lot # [id number] [facility] Lot# Expiration Date [facility] Swab 01/01/2025 9:10 AM EST us Remy Coughlin MD POINT OF CARE TEST ENTER/EDIT OR DERABLES Final Result Performing Organization Address [facility] de Phone Number [facility] [address] [place] [address] [phone] * POCT Rapid Influenza A HENRY ID NOW (01/01/2025 9:10 AM EST) Influenza A Negative Negative, Indeterminate [facility] QC Media Lot # [id number] [facility] Lot# Expiration Date [facility] Swab 01/01/2025 9:10 AM EST us Remy Coughlin MD POINT OF CARE TEST ENTER/EDIT OR DERABLES Final Result Performing Organization Address [facility] Co de Phone Number [facility] [address] [place] [address] [phone] * POCT Rapid Strep A HENRY ID NOW (01/01/2025 9:08 AM EST) [facility] Rapid Strep A Screen Negative Negative, None Detected QC Media Lot # [id number] Lot# Expiration Date 526 Swab 01/01/2025 9:08 AM EST Remy Name POINT OF CARE TEST ENTER/EDIT OR DERABLES Final Result * POCT Rapid Covid-19 BinaxNOW (01/01/2025 9:08 AM EST) [facility] Rapid COVID Ag Negative QC Media Lot # [id number] Lot# Expiration Date [id number] Swab 01/01/2025 9:08 AM EST Remy Coughlin MD POINT OF CARE TEST ENTER/EDIT OR DERABLES Final Result * CDiff Gene PCR (12/30/2024 12:39 PM EST) [facility] CDiff Gene PCR NEGATIVE Negative [facility] Comment:If C. difficile stro ngly suspected despite one negativetest, a second test may be sent vs. empiric treatment forC. difficile infection. 12/30/2024 12:3 9 PM EST 12/30/2024 12:43 PM EST Generic External Data Provider LAB BODY FLUIDS A ND STOOLS ORDERABLES Final Result [facility] [address] [place] [address] [phone] * (ABNORMAL) Gastrointestinal panel (12/30/2024 12:39 PM EST) [facility] Campylobacter Not Detected Not Detect. [facility] Plesiomonas shigelloides Not Detected Not Detect. [facility] Salmonella Not Detected Not Detect. [facility] Vibrio Not Detected Not Detect. [facility] Vibrio cholerae Not Detected Not Detect. [facility] YERSINIA ENTEROCOLITICA Not Detected Not Detect. [facility] Enteroaggregative E. coli (EAEC) Not Detected Not Detect. [facility] Enteropathogenic E. coli (EPEC) Not Detected Not Detect. [facility] Enterotoxigenic E. coli (ETEC) lt/st Not Detected Not Detect. [facility] Shiga-like toxin-producing E. coli (STEC) stx1/stx2 Not Detected Not Detect. [facility] E coli O157 Not applicable Not Detect. [facility] Comment:E. coli containing t he O157 antigen are a subset ofShiga-like toxin- producing E. coli (STEC). Shigella/Enteroinvasive E. coli (EIEC) Not Detected Not Detect. [facility] Cryptosporidium Not Detected Not Detect. [facility] Cyclospora cayetanensis Not Detected Not Detect. [facility] Entamoeba histolytica Not Detected Not Detect. [facility] Giardia lamblia Not Detected Not Detect. [facility] Adenovirus F 40/41 Not Detected Not Detect. [facility] Astrovirus Not Detected Not Detect. [facility] Norovirus GI/GII Detected(A) Not Detect. [facility] Comment:Results of GI PANEL called to and read back by JEANE on 12/30/24 at 1523 by BRANT. Rotavirus A Not Detected Not Detect. [facility] Sapovirus Not Detected Not Detect. [facility] Comment: All results must be correlated [...] assay is performed by Multiplexed PCR, utilizing [employer] Array. 12/30/2024 12:3 9 PM EST 12/30/2024 12:43 PM EST us Generic External Data Provider LAB MICROBIOLOGY - GENERAL ORDERABLES Final Result [facility] [address] [place] [phone] * (ABNORMAL) Urinalysis, Complete, with Reflex to Culture (12/30/2024 12:39 PM EST) Color Urine Yellow [facility] Appearance Urine Clear [facility] PH 5.5 5.0 - 9.0 [facility] Glucose Urine UA >=1000(A) Negative mg/dL [facility] Urine Blood Negative Negative [facility] Specific Beatty - Urine >=1.030(H) 1.005 - 1.025 [facility] Urine Protein Negative Neg-Trace mg/dL [facility] Urine Ketones Trace Negative mg/dL [facility] Nitrite Urine Negative Negative [facility] Leukocyte Esterase Urine Negative Negative [facility] RBC Urine 0-2 0 - 2 /HPF [facility] Urine WBC 0-5 0 - 5 /HPF [facility] Urine Squamous Epithelial Cell 0-2 0 - 2 /HPF [facility] Urine Bacteria None Seen None Seen [facility] Hyaline Casts, Urine 0-2 0 - 2 /LPF [facility] 12/30/2024 12:3 9 PM EST 12/30/2024 12:43 PM EST Narrative [facility] - 12/30/2024 12:56 PM EST [id number], Clean Catch Generic External Data Provider LAB URINE ORDERAB LES Final Result Performing Organization Address [facility] Co de Phone Number [facility] [address] [place] [address] [phone] * VENOUS BLOOD GAS (12/30/2024 12:01 PM EST) Pathologist [facility] VBG pH 7.40 7.32 - 7.43 [facility] Comment:METER #: [id number] additional_comment: Cullen olivo VBG PCO2 36 mmHg [facility] Comment:METER #: [id number] additional_comment: Cullen olivo VBG PO2 81 mmHg [facility] Comment:METER #: [id number] additional_comment: Cullen MCCANNG Base Excess -1.4 mmol/L [facility] Comment:METER #: [id number] additional_comment: Cullen MCCANNG HCO3 22 22 - 26 mmol/L [facility] Comment:METER #: [id number] additional_comment: Cullen olivo O2 Sat, Leoncio 99.0 % [facility] Comment:METER #: [id number] additional_comment: Cullen olivo 12/30/2024 12:0 1 PM EST 12/30/2024 12:05 PM EST us Generic External Data Provider LAB BLOOD ORDERAB LES Final Result Performing Organization Address [facility]/ZIP Co de Phone Number [facility] [address] [place] [address] [phone] * High Sensitivity Troponin I (12/30/2024 11:58 AM EST) [facility] TROPONIN I HIGH SENSITIVITY 4.7 <3.5 - 35.0 ng/L [facility] Comment:The Henry high sens itivity Troponin-I results should beused in conjunction with other diagnostic information suchas ECG, clinical observations and information, and patientsymptoms to aid in the diagnosis of PA. 12/30/2024 11:5 8 AM EST 12/30/2024 12:00 PM EST us Generic External Data Provider LAB BLOOD ORDERAB LES Final Result [facility] [address] [place] [address] [phone] * CT Abdomen Pelvis w/o Contrast (12/30/2024 10:26 AM EST) Anatomical Region Laterality Modality Body, Pelvis, Abdomen Computed T omography 12/30/2024 10:2 6 AM EST Narrative 12/30/2024 11:07 AM EST ? [facility] ?[address] ?[place] [address] ? CT Scan Report ? Signed ? Patient: Godinez Godinez,Ian ?MR#: [id number] ?? [id number] ? : 1970 ?Acct:[id number] ? Age/Sex: 54 / M ?ADM Date: 12/30/24 ? Loc: HO.ED ? Attending Dr: ? Ordering Physician: Abraham Gay ?? Date of Service: 12/30/24 ?? Procedure(s): CT abdomen pelvis wo IV con ?? Accession Number(s): [id number] ? cc: Abraham Gay; Tor Villela MD ? Report Number: ?? [id number]: Total DLP = ??585.00 mGy-cm ?? EXAMINATION: [...] Kilpatrick MD ??12/30/2024 11:04 AM ?? EST RP ? Dictated By: ?Nikhil Dubois MD ? Signed By: ?<Electronically signed by Nikhil Mcdonnell MD in OV> ? 12/30/244 ? DD/ 1026 ? TD/TT: 12/30/24 1039 ? Communications Lead: ? Procedure Note Donotuseinterpreter, Image - 12/30/[address] [place] [address] [address] Scan Report Signed Patient: Ian HernandezMR#: [id number] : 1970Acct:[id number] Age/Sex: 54 / MADM Date: 12/30/24 Loc: HO.ED Attending Dr: Ordering Physician: Abraham Gay Date of Service: 12/30/24 Procedure(s): CT abdomen pelvis wo IV con Accession Number(s): [id number] cc: Abraham Gay; Tor Villela MD Report Number: [id number]: Total DLP = 585.00 mGy-cm EXAMINATION: CT [...] Nikhil Kilpatrick MD 12/30/2024 11:04 AM EST Dictated By: Nikhil Dubois MD Signed By: <Electronically signed by Nikhil Mcdonnell MDin OV> 12/30/24 1104 DD/ 1026 TD/TT: 12/30/24 1039 Communications Lead: us [facility] External Provider IMG CT PROCEDURES Final Result * (ABNORMAL) VITAMIN D 25-OH (D2 AND D3) (12/28/2024 9:13 AM EST) Vitamin D, 25-OH, D2 <4 ng/mL [facility] Comment:This test was devnatalio ped and its analytical performancecharacteristics have been determined by [employer]. It hasnot been cleared or approved by the U.S. Food and DrugAdministration. This assay has been validated pursuantto the CLIA regulations and is used for clinicalpurposes.THIS TEST WAS PERFORMED AT:[employer]/V[address] [id number] [place] [address]HTJSBZANICKY VELASQUEZ MD,PHD Vitamin D, 25-OH, D3 29 ng/mL [facility] Comment:This test was develo ped and its analytical performancecharacteristics have been determined by [employer] [place], [place]. It hasnot been cleared or approved by the U.S. Food and DrugAdministration. This assay has been validated pursuantto the CLIA regulations and is used for clinicalpurposes. Vitamin D, 25-OH, Total 29(A) 30 - 100 ng/mL [facility] Comment:Vitamin D, 25-Hydrox y reports concentrations [...] = 30 ng/mL.For additional information, please refer tohttp://[email or web address]/faq/UEB879(This link is being provided for informational/educational purposes only.) 12/28/2024 9:13 AM EST 12/28/2024 6:11 PM EST us Generic External Data Provider LAB BLOOD ORDERAB LES Final Result [facility] [address] [place] [phone] * (ABNORMAL) CRP, HIGH SENSITIVITY (12/28/2024 9:13 AM EST) CRP, High Sensitivity 4.3(A) mg/L [facility] Comment: Reference RangeOptimal <1.0Gee SMALLWOOD et al. Endocr Pract.2017;23(Suppl 2):1- 87.For [...] health practice:A statement for healthcare professionals from theCenters for Disease Control and Prevention and theAmerican Heart Association. Circulation 2003; 107(3):499-511.THIS TEST WAS PERFORMED AT:[email or web address] [place] [address] ?? [id number] MORAN MD 12/28/2024 9:13 AM EST 12/28/2024 6:11 PM EST us Generic External Data Provider LAB BLOOD ORDERAB LES Final Result [facility] [address] [place], [place] [phone] * Vitamin B12 (Cobalamin) and Folate Panel, Serum (12/28/2024 9:13 AM EST) Vitamin B12 500 200 - 900 pg/mL [facility] Comment:NORMAL 200-900 PG/ML INDETERMINATE 160-199 PG/ML DEFICIENT < 160 PG/ML Folate 8.8 > or = 4.0 ng/mL [facility] Comment:Reference Values:> o r = 4.0 ng/mL< 4.0 ng/mL suggests folate deficiency Methotrexate, aminopterin and folinic acid(leucovorin) are chemotherapeutic agents whose molecularstructures are similar to folate; therefore, the Architectfolate assay cannot be used for patients using these drugs. 12/28/2024 9:13 AM EST 12/28/2024 6:09 PM EST Generic External Data Provider LAB BLOOD ORDERAB LES Final Result Performing Organization Address [facility]/ZIP Co de Phone Number [facility] [address] [place] [phone] * TSH with Reflex to Free T4 (12/28/2024 9:13 AM EST) TSH reflex Free T4 1.98 0.32 - 4.0 uIU/mL [facility] 12/28/2024 9:1 3 AM EST 12/28/2024 6:09 PM EST Generic External Data Provider LAB BLOOD ORDERAB LES Final Result Performing Organization Address [facility] Co de Phone Number [facility] [address] [place] [address] [phone] * CBC auto differential (12/28/2024 9:13 AM EST) White Blood Count 6.8 4.8 - 10.8 X10*3/uL [facility] Red Blood Count 5.10 4.60 - 5.80 X10*6/uL [facility] Hemoglobin 15.0 14.0 - 18.0 g/dl [facility] Hematocrit 43.1 42.0 - 52.0 % [facility] Mean Corpuscular Volume 84.5 80.0 - 98.0 fL [facility] Mean Corpuscular Hemoglobin 29.4 27.0 - 33.0 pg [facility] Mean Corpuscular HGB Conc 34.8 31.0 - 36.0 g/dl [facility] Red Cell Distribution Width 13.3 11.0 - 16.0 % [facility] Platelet Count 215 160 - 400 X10*3/uL [facility] Mean Platelet Volume 11.2 9.4 - 12.4 fL [facility] Neutrophils Percent Auto 68.7 45 - 73 % [facility] Imm Gran Pct Auto 0.3 0.0 - 0.4 % [facility] Lymphocytes Percent Auto 21.8 20 - 40 % [facility] Monocytes Percent Auto 6.3 2 - 11 % [facility] Eosinophils Percent Auto 2.5 0 - 4 % [facility] Basophils Percent Auto 0.4 0 - 2 % [facility] NRBC Pct Auto 0.0 0.0 - 0.2 /100WBC [facility] Neutrophils Absolute Auto 4.7 2.0 - 8.3 x10*3/uL [facility] Imm Gran Abs Auto 0.02 0.00 - 0.03 X10*3/uL [facility] Lymphocytes Absolute Auto 1.5 1.2 - 4.9 X10*3/uL [facility] Monocytes Absolute Auto 0.4 0.1 - 1.2 X10*3/uL [facility] Eosinophils Absolute Auto 0.2 0.0 - 0.4 X10*3/uL [facility] Basophils Absolute Auto 0.0 0.0 - 0.2 X10*3/uL [facility] NRBC Abs Auto 0.000 0.0 - 0.012 X10*3/uL [facility] 12/28/2024 9:13 AM EST 12/28/2024 6:09 PM EST us Generic External Data Provider LAB BLOOD ORDERAB LES Final Result [facility] [address] [place] [phone] * Sed Rate by Modified Jessica (12/28/2024 9:13 AM EST) Erythrocyte Sedimentation Rate 6 0 - 15 MM/HR [facility] Comment:Patients with polycy themia and many hemoglobin abnormalitiesmay have depressed sed rates whereas patients with anemiamay have elevated sed rates. 12/28/2024 9:13 AM EST 12/28/2024 6:09 PM EST us Generic External Data Provider LAB BLOOD ORDERAB LES Final Result Performing Organization Address [facility] Co de Phone Number [facility] [address] [place] [phone] * Magnesium (12/28/2024 9:13 AM EST) Pathologist [facility] Magnesium 2.3 1.6 - 2.6 mg/dL [facility] 12/28/2024 9:13 AM EST 12/28/2024 6:09 PM EST Generic External Data Provider LAB BLOOD ORDERAB LES Final Result Performing Organization Address [facility] Co de Phone Number [facility] [address] [place] [phone] * Creatine Kinase, Total (12/28/2024 9:13 AM EST) Creatine Kinase Total 171 38 - 174 U/L [facility] 12/28/2024 9:13 AM EST 12/28/2024 6:09 PM EST Generic External Data Provider LAB BLOOD ORDERAB LES Final Result Performing Organization Address [facility] Co de Phone Number [facility] [address] [place] [address] [phone] * (ABNORMAL) Comprehensive Metabolic Panel (12/28/2024 9:13 AM EST) Sodium 139 135 - 145 mmol/L [facility] Potassium 4.2 3.3 - 5.1 mmol/L [facility] Chloride 105 96 - 108 mmol/L [facility] Carbon Dioxide 23 22 - 29 mmol/L [facility] Anion Gap 15 12 - 20 [facility] Urea Nitrogen (BUN) 25(H) 9 - 16 mg/dL [facility] Creatinine, Serum 1.63(H) 0.5 - 1.4 mg/dL [facility] Estimated Glomerular Filt Rate 44 [facility] Comment:Chronic Kidney Disea se: Estimated GFR < 60 mL/min/1.41c3Vsigam Kidney Disease: Estimated GFR < 15 mL/min/1.73m2 Glucose 239(H) 60 - 115 mg/dL [facility] Calcium 9.5 8.4 - 10.2 mg/dL [facility] Bilirubin, Total 0.5 0.0 - 1.0 mg/dL [facility] Aspartate Amino Transferase 29 5 - 37 U/L [facility] Alanine Aminotransferase 32 0 - 40 U/L [facility] Total Protein 7.6 6.5 - 8.0 g/dL [facility] Albumin Level 4.4 3.5 - 5.0 g/dL [facility] Alkaline Phosphatase 64 39 - 117 U/L [facility] 12/28/2024 9:13 AM EST 12/28/2024 6:09 PM EST us Generic External Data Provider LAB BLOOD ORDERAB LES Final Result [facility] [address] [place] [phone] * (ABNORMAL) POCT HGB A1C (12/07/2024 11:21 AM EST) Hemoglobin A1C 8.7(A) 4.0 - 6.0 % QC Media Lot # [id number] Lot# Expiration Date Blood 12/07/2024 11:2 1 AM EST Tor Bañuelos MD POINT OF CARE TEST EN TER/EDIT ORDERABLES Final Result * (ABNORMAL) Lipid Panel with Reflex to Direct LDL (09/09/2023 7:57 AM EST) Triglycerides 448(H) <150 mg/dL [facility] Comment:Desirable Triglyceri de: less than 150 mg/dLBorderline High Triglyceride 150-199 mg/dLHigh Triglyceride: 200-499 mg/dLVery High Triglyceride: greater than or equal to 5OO mg/dL Cholesterol 204(H) <200 mg/dL [facility] Comment:Desirable Cholestero l: less than 200 mg/dLBorderline High Cholesterol: 200-239 mg/dLHigh Cholesterol: greater than 239 mg/dL LDL Cholesterol Calculated TNP <100 mg/dL [facility] Comment:Unable to calculate the LDL. The formula of Friedwald,Shepherd, and Pearl is only valid if the triglycerides areless than 400 mg/dl. HDL Cholesterol 34(L) >40 mg/dL [facility] Comment:Desirable HDL: great er than 40 mg/dL Note: This HDL assay may give artificially low results in patients with liver disease. Blood 09/09/2023 7:57 AM EST 09/09/2023 7:57 AM EST Tor Bañuelos MD LAB BLOOD ORDERABLES Final Result [facility] [address] [place] [address] [phone] * Hm Colonoscopy (01/25/2022) Colonoscopy Normal Normal 01/25/2022 Narrative Radha Alves - 01/25/2022 2:56 PM EDT Recommended 10 year follow up ( see scanned notes) Historical Provider HEALTH MAINTENANCE Edited Result - Final from Last 3 Months or Most Recently [place] [id number] Care Teams Workforce Management Coordinator Relationship Specialty Start Date End Date Tor Crews MD [address] [place] [address] [place] PCP - General Internal Medicine 07/21/14
--- OUTSIDE RECORDS SUMMARY | 2025-03-14 08:45 | XMS_ITS | Encounter Summary ---
Author Organization [employer] Address [address] [place] [address] Care Team Providers Care Hose Inspector And Patcher Name Role Phone Tor Crews MD Primary Care Provide r Reason for Visit * Reason Onset Date Comments Hospital Follow-up 10/26/2024 Encounter Details Date Type Department Care Team ([facility] st Contact Info) Description 10/26/2024 Telephone [facility] MEDICINE [address] [place], [place] [phone] Tor Crews MD [address] [place], [place] [phone] Hospital Follow-up Social History Tobacco Use Types [...] from pt requesting a HDF appt. Hospital: [facility] Date of admission: 10/20/2024 Discharge date: 10/25/2024 Diagnosed: Asthma *Send message to [place] Clinical Care Coordinators documented in this encounter Plan of Treatment Upcoming Encounters Date Type Department Care Team (Late st Contact Info) Description 04/04/2025 11:00 AM EDT Office Visit [facility] ADULT DENTAL [address] [place] [phone] Kristen Perez 05/17/2025 11:30 AM EDT Office Visit [facility] MEDICINE [address] [place] [address] Tor Crews MD [address] [place] [address] 06/01/2025 10:00 AM EDT Office Visit [facility] ADULT DENTAL [address] [place] [address] Juliann Johnson [address] [place] [phone] documented as of this encounter Visit Diagnoses Not on filedocumented in this encounter Additional Health Concerns Assessment Noted Time PHQ-9 Depression Total Score: 4 03/04/20 23 2:58 PM EDT documented as of this encounter Care Teams Hose Inspector And Patcher Relationship Specialty Start Date End Date Tor Crews MD [address] [place] [phone] PCP - General Internal Medicine 07/21/14 documented as of this encounter
--- OUTSIDE RECORDS SUMMARY | 2025-03-14 08:45 | XMS_ITS | Encounter Summary ---
Author Organization [employer] Address [address] 7[address] [place] [address] Care Team Providers Care Senior Administrative Assistant Name Role Phone Tor Crews MD Primary Care Provide r Encounter Details Date Type Department Care Team (Late st Contact Info) Description 10/30/2022 Orders Only [facility] [address] [place], [place] [phone] Mahsa Bustillos LPN Social History Tobacco Use [...] Description 04/04/2025 11:00 AM EDT Office Visit [facility] ADULT DENTAL [address] [place] [address] Kristen Perez 05/17/2025 11:30 AM EDT Office Visit [facility] MEDICINE [address] [place] [phone] Tor Crews MD [address] [place] [address] 06/01/2025 10:00 AM EDT Office Visit [facility] ADULT DENTAL [address] [place] [address] Juliann Johnson [address] [place] [address] [phone] documented as of this encounter Visit Diagnoses Not on filedocumented in this encounter Care Teams Senior Administrative Assistant Relationship Specialty Start Date End Date Tor Crews MD [address] [place] [address] PCP - General Internal Medicine 07/21/14 documented as of this encounter
--- OUTSIDE RECORDS SUMMARY | 2025-03-14 08:45 | XMS_ITS | Encounter Summary ---
Author Organization [employer] Address [address] 7[address] [place] [address] Care Team Providers Care Actuarial Analyst Name Role Phone Tor Crews MD Primary Care Provide r Encounter Details Date Type Department Care Team ([facility] st Contact Info) Description 10/15/2024 Orders Only [facility] MEDICINE [address] [place], [place] [phone] Arcelia Watkins ANP [address] [place], [place] [phone] Social History Tobacco Use Types Packs/Day Years [...] Description 04/04/2025 11:00 AM EDT Office Visit [facility] ADULT DENTAL [address] [place] [address] Kristen Perez 05/17/2025 11:30 AM EDT Office Visit [facility] MEDICINE [address] [place] [address] Tor Crews MD [address] [place] [phone] 06/01/2025 10:00 AM EDT Office Visit [facility] ADULT DENTAL [address] [place] [address] Juliann Johnson [address] [place] [address] [phone] documented as of this encounter Visit Diagnoses Not on filedocumented in this encounter Additional Health Concerns Assessment Noted Time PHQ-9 Depression Total Score: 4 03/04/20 23 2:58 PM EDT documented as of this encounter Care Teams Actuarial Analyst Relationship Specialty Start Date End Date Tor Crews MD [address] [place] [phone] PCP - General Internal Medicine 07/21/14 documented as of this encounter
--- OUTSIDE RECORDS SUMMARY | 2025-03-14 08:45 | XMS_ITS | Clinical Summary ---
Author Organization [address] [facility] Address [address] [place] [address] Phone Care Team Providers Care Field Installer Name Role Phone Tor Villela MD Primary Care Provi pepe Allergies No known active allergies Medications methylPREDNISo lone (MEDROL DOSPAK) 4 mg tablet Take 1 tablet (4 mg total) by mouth See administration instructions for 6 days. Use as directed by package instructions 21 tablet 03/03/20 25 025 Encounters Date Type Department Care Team Description 03/03/2025 10:15 AM EDT Office Visit Orthopedic Surgery [place] [phone] [phone] Tod Little DPM Metatarsalgia of right foot (Primary Dx); Follow-up exam 02/01/2025 9:45 AM EDT Consult Orthopedic [place] [address] [phone] Tod Little DPM Metatarsalgia of right foot [...] - - Weight 90.7 kg (200 lb) 03/03/2025 10:08 AM EDT Height 170.2 cm (5' 7.01 ) 03/03/2025 10:08 AM E DT Body Mass Index 31.32 03/03/2025 10:08 AM EDT Plan of Treatment Upcoming Encounters Date Type Department Care Team (Late st Contact Info) Description 04/07/2025 10:30 AM EDT Office Visit [facility] - [place] [address] [phone] Tod Little, DPM [address] [phone] Health Maintenance Due Date Last Done Comments [...] Procedure Name Priority Date/Time Associated Diagnosis Comments XR FOOT 3+ VIEWS RIGHT Routine 03/03/2025 10:09 AM EDT Follow-up exam from Last 3 Months Results * XR Foot 3+ Views Right (03/03/2025 10:09 AM EDT) Anatomical Region Laterality Modality Lower Extremities, Foot Right Computed Radiography Narrative 03/03/2025 12:19 PM EDT Right foot ??3 views No fracture. No radiopaque foreign slight bunion deviation with increased hallux adductovalgus and hallux interphalangeus joint spaces normal Foot position rectus Normal talus navicular position normal calcaneal inclination normal symes line talus navicular joint to calcaneal cuboid joint Tod Little DPHimanshu IMG XR PROCEDURES Final R esult from Last 3 Months Insurance [place] - [place] [facility] MEDICARE Member Subscriber Plan / Payer (Ef fective 2019-Present) Name:Ian Godinez Relation to Subscriber:Self Name:Ian Godinez Payer ID:[id number] Group ID:[id number] Type:Not on file Address: [address] [place] [address] Care Teams Field Installer Relationship Specialty Start Date End Date Tor Villela MD [address] [place] [phone] PCP - General 07/29/24
--- OUTSIDE RECORDS SUMMARY | 2025-03-14 08:45 | XMS_ITS | Encounter Summary ---
Author Organization [employer] Address [address] [address] 7[address] [place] [address] Care Team Providers Care In Store Representative Name Role Phone Tor Crews MD Primary Care Provide r Encounter Details Date Type Department Care Team ([facility] st Contact Info) Description 01/19/2025 Telephone [facility] MEDICINE [address] [place], [place] [phone] Tor Crews MD [address] [place], [place] [phone] Social History Tobacco Use Types Packs/Day Years [...] [facility] [address] [place] [address] Kristen Perez 05/17/2025 11:30 AM EDT Office Visit [facility] MEDICINE [address] [place] [address] Tor Crews MD [address] [place] [phone] 06/01/2025 10:00 AM EDT Office Visit [facility] ADULT DENTAL [address] [place] [address] Juliann Johnson [address] [place] [phone] documented as of this encounter Visit Diagnoses Not on filedocumented in this encounter Additional Health Concerns Assessment Noted Time PHQ-9 Depression Total Score: 4 03/04/20 23 2:58 PM EDT documented as of this encounter Care Teams In Store Representative Relationship Specialty Start Date End Date Tor Crews MD [address] [place] [phone] PCP - General Internal Medicine 07/21/14 documented as of this encounter
--- OUTSIDE RECORDS SUMMARY | 2025-03-14 08:45 | XMS_ITS | Encounter Summary ---
Author Organization [employer] Address [address] [facility] 7t [place] [address] Care Team Providers Care Christian Science Practitioner Name Role Phone Tor Crews MD Primary Care Provide r Encounter Details Date Type Department Care Team (Latest Contact Info) Description 04/26/2021 Abstract [facility] Dental, Provider, DDS Social History [...] Description 04/04/2025 11:00 AM EDT Office Visit [facility] ADULT DENTAL [address] [place] [address] Kristen Perez 05/17/2025 11:30 AM EDT Office Visit [facility] [address] [place] [address] Tor Crews MD [address] [place] [address] 06/01/2025 10:00 AM EDT Office Visit [facility] ADULT DENTAL [address] [place] [address] Juliann Johnson [address] [place] [address] [phone] documented as of this encounter Visit Diagnoses Not on filedocumented in this encounter Care Teams Christian Science Practitioner Relationship Specialty Start Date End Date Tor Crews MD [address] [place] [address] PCP - General Internal Medicine 07/21/14 documented as of this encounter
--- OUTSIDE RECORDS SUMMARY | 2025-03-14 08:46 | XMS_ITS | Encounter Summary ---
Author Organization [employer] Address [address] [place] [address] Care Team Providers Care Supervisor Central Supply Name Role Phone Tor Crews MD Primary Care Provide r Reason for Visit * Reason Onset Date Comments Med Refill 03/09/2025 Encounter Details Date Type Department Care Team (Late st Contact Info) Description 03/09/2025 Refill [facility] MEDICINE [address] [place], [place] [phone] Tor Crews MD [address] [place], [place] [phone] Type 2 diabetes mellitus with stage 3b chronic kidney disease, with long-term current use of insulin ([facility]) Social History Tobacco Use Types [...] encounter Miscellaneous Notes * Telephone Encounter - Mahsa Bustillos LPN - 03/09/2025 4:13 PM EDT Last seen 02/10/25. * Telephone Encounter - Little Delarosa - 03/09/2025 4:08 PM EDT TC from pt requesting medication refill. Medications needing refill : glyBURIDE (Diabeta) 5 MG tablet To be sent to: [facility] pharmacy documented in this encounter Plan of Treatment Upcoming Encounters Date Type Department Care Team (Late st Contact Info) Description 04/04/2025 11:00 AM EDT Office Visit [facility] ADULT DENTAL [address] [place] [address] Kristen Perez 05/17/2025 11:30 AM EDT Office Visit [facility] MEDICINE [address] [place] [address] Tor Crews MD [address] [place] [address] 06/01/2025 10:00 AM EDT Office Visit [facility] ADULT DENTAL [address] [place] [address] Juliann Johnson [address] [place] [address] [phone] documented as of this encounter Visit Diagnoses Diagnosis Type 2 diabetes mellitus with stage 3b chronic kidney disease, with long-term current use of insulin ([facility]) documented in this encounter Additional Health Concerns Assessment Noted Time PHQ-9 Depression Total Score: 4 03/04/20 23 2:58 PM EDT documented as of this encounter Care Teams Supervisor Central Supply Relationship Specialty Start Date End Date Tor Crews MD [address] [place] [address] PCP - General Internal Medicine 07/21/14 documented as of this encounter
--- OUTSIDE RECORDS SUMMARY | 2025-03-14 08:46 | XMS_ITS | Encounter Summary ---
Author Organization [employer] Address [address] [facility] [address] [place] [address] Care Team Providers Care Gas Main Fitter Helper Name Role Phone Tor Crews MD Primary Care Provide r Encounter Details Date Type Department Care Team (Late Contact Info) Description 02/27/2023 Abstract [facility] MEDICINE [address] [place] [phone] Tor Crews MD 230 [place], [place] [phone] Social History Tobacco Use Types Packs/Day Years [...] Description 04/04/2025 11:00 AM EDT Office Visit [facility] ADULT DENTAL [address] [place] [address] [phone] Kristen Perez 05/17/2025 11:30 AM EDT Office Visit [facility] MEDICINE 230 [place], [place] [phone] Tor Crews MD 230 [place], [place] [phone] 06/01/2025 10:00 AM EDT Office Visit [facility] [address] [facility] [place] [phone] ElizabethJuliann [address] [place] [phone] documented as of this encounter Procedures Procedure Name Priority Date/Time Associated Diagnosis Comments COLONOSCOPY Routine 01/25/2022 documented in this encounter Results * Colonoscopy (01/25/2022) Colonoscopy Normal Normal 01/25/2022 Vaneas Radha Alves - 01/25/2022 2:56 PM EDT Recommended 10 year follow up ( see scanned notes) us Historical Provider [employer] [facility] Edited Result - Final documented in this encounter Visit Diagnoses Not on filedocumented in this encounter Care Teams Gas Main Fitter Helper Relationship Specialty Start Date End Date Tor Crews MD [address] [facility] [place], [place] [phone] PCP - General Internal Medicine 07/21/14 documented as of this encounter
--- OUTSIDE RECORDS SUMMARY | 2025-03-14 08:46 | XMS_ITS | Encounter Summary ---
Author Organization [employer] Address [address] [facility] [address] 7[address] [place] [address] Care Team Providers Care Correctional Lieutenant Name Role Phone Tor Crews MD Primary Care Provide r Reason for Visit * Reason Onset Date Comments triage 01/13/2023 Encounter Details Date Type Department Care Team ([facility] st Contact Info) Description 01/13/2023 Telephone [facility] MEDICINE 230 [place], [place] [phone] Tor Crews MD 230 [place], [place] [phone] triage Social History Tobacco Use Types Packs/Day [...] 01/13/2023 1:24 PM EDT Triage call with [facility] Specialist ID [id number] Pt reports upper abdominal pain since last night. Pt has had diarrhea, watery, >5x and vomiting >7x today. Pt is unable to eat but, is drinking liquids which causes more vomiting. Advised to drink liquids in small sips constantly and Pt agreed. Pt reports headache neg for fever. Pt abdominalpain comes and goes with the diarrhea. Pt urine is light yellow/clear. Advised Pt to come to [facility] today and Pt agreed. Home [...] Visit [facility] ADULT DENTAL 230 [place] [address] Kristen Perez 05/17/2025 11:30 AM EDT Office Visit [facility] MEDICINE [address] [place] [address] Tor Crews MD 230 [place] [address] 06/01/2025 10:00 AM EDT Office Visit [facility] ADULT DENTAL 230 [place] [address] Juliann Johnson [address] [place] [address] [phone] documented as of this encounter Visit Diagnoses Not on filedocumented in this encounter Care Teams Correctional Lieutenant Relationship Specialty Start Date End Date Tor Crews MD 230 [place] [address] PCP - General Internal Medicine 07/21/14 documented as of this encounter
--- OUTSIDE RECORDS SUMMARY | 2025-03-14 08:46 | XMS_ITS | Encounter Summary ---
Author Organization [employer] Address [address] [facility] [address] 7[address] [place] [address] Care Team Providers Care Textile Artist Name Role Phone Tor Crews MD Primary Care Provide r Reason for Visit * Reason Comments Med Refill Encounter Details Date Type Department Care Team ([facility] st Contact Info) Description 03/12/2025 Refill [facility] MEDICINE 230 [place], [place] [phone] Tor Crews MD 230 [place], [place] [phone] Type 2 diabetes mellitus without complication, with long-term current use of insulin ([facility]) Social History Tobacco Use Types [...] Description 04/04/2025 11:00 AM EDT Office Visit [facility] ADULT DENTAL 230 [place] [address] Kristen Perez 05/17/2025 11:30 AM EDT Office Visit [facility] MEDICINE 230 [place] [address] Tor Crews MD [address] [place] [phone] 06/01/2025 10:00 AM EDT Office Visit [facility] ADULT DENTAL 230 [place] [address] Juliann Johnson [address] [place] [address] [phone] documented as of this encounter Visit Diagnoses Diagnosis Type 2 diabetes mellitus without complication, with long-term current use of insulin ([facility]) documented in this encounter Additional Health Concerns Assessment Noted Time PHQ-9 Depression Total Score: 4 03/04/20 23 2:58 PM EDT documented as of this encounter Care Teams Textile Artist Relationship Specialty Start Date End Date Tor Crews MD [address] [place] [phone] PCP - General Internal Medicine 07/21/14 documented as of this encounter
--- OUTSIDE RECORDS SUMMARY | 2025-03-14 08:46 | XMS_ITS | Encounter Summary ---
Author Organization [employer] Address [address] [facility] [address] 7[address] [place] [address] Care Team Providers Care Livestock Dealer Name Role Phone Tor Crews MD Primary Care Provide r Encounter Details Date Type Department Care Team (Late st Contact Info) Description 11/28/2022 Abstract [facility] MEDICINE [address] [place] [phone] Tor Crews MD 230 [place], [place] [phone] Social History Tobacco Use Types Packs/Day Years [...] Description 04/04/2025 11:00 AM EDT Office Visit [facility] ADULT DENTAL 230 [place], [place] [phone] Kristen Perez 05/17/2025 11:30 AM EDT Office Visit [facility] MEDICINE [address] [place], [place] [phone] Tor Crews MD 230 [place] [address] 06/01/2025 10:00 AM EDT Office Visit [facility] ADULT DENTAL 230 [place], [place] [phone] Juliann Johnson [address] [place] [address] [phone] documented as of this encounter Visit Diagnoses Not on filedocumented in this encounter Care Teams Livestock Dealer Relationship Specialty Start Date End Date Tor Crews MD 230 [place] [address] PCP - General Internal Medicine 07/21/14 documented as of this encounter
--- OUTSIDE RECORDS SUMMARY | 2025-03-14 08:46 | XMS_ITS | Clinical Summary ---
Author Organization [facility] Address [address] [facility] [address] [place] [address] Phone Care Team Providers Care Repair Order Clerk Name Role Phone Tor Guzman MD Primary [...] (6 to 49 Years) Discontinued 04/17/2023 Insurance [facility] ([id number]) , [place] [address] [facility] MCR ([id number]) Care Teams Repair Order Clerk Relationship Specialty Start Date End Date Tor Guzman MD PCP - General 11/06/20
[2025-03-14 09:50] LABS: Anion Gap 16 (12-20); Blood Urea Nitrogen 28 mg/dL (9-16); Carbon Dioxide 25 mmol/L (22-29); Chloride 104 mmol/L (96-108); Estimated Glomerular Filt Rate 47; Potassium 4.1 mmol/L (3.3-5.1); Sodium 141 mmol/L (135-145)
[2025-03-18 14:04] LABS: Vitamin D 25-OH, D2 <4 ng/mL; Vitamin D 25-OH, D3 69 ng/mL; Vitamin D 25-OH, Total 69 ng/mL (30-100)
== END 2025-03-14 08:40 | disposition home or self-care (01) ==
LOC: HO.LAB 08:39
PROVIDERS: Nurse Practitioner Family; PCP Internal Medicine; Visit Provider Internal Medicine Nephrology
DX: I42.8 Other cardiomyopathies (principal); G47.33 Obstructive sleep apnea (adult) (pediatric); I12.9 Hypertensive chronic kidney disease with stage 1 through stage 4 chronic kidney disease, or unspecified chronic kidney disease; N18.32 Chronic kidney disease, stage 3b; E55.9 Vitamin D deficiency, unspecified; Z45.018 Encounter for adjustment and management of other part of cardiac pacemaker; Z99.89 Dependence on other enabling machines and devices
CPT/HCPCS: 36415; 80051; 82306; 82565; 84520; 99212

== ENCOUNTER 2025-03-14 12:33 | Outpatient (AMB) | payer OTHER, SELFPAY ==
--- OUTSIDE RECORDS SUMMARY | 2025-03-14 12:54 | XMS_ITS | Clinical Summary ---
Author Organization [facility] Address 175 [place] [address] Phone Care Team Providers Care Director Child Name Role Phone Tor Villela MD Primary Care Provi pepe Allergies No known active allergies Medications methylPREDNISo lone (MEDROL DOSPAK) 4 mg tablet Take 1 tablet (4 mg total) by mouth See administration instructions for 6 days. Use as directed by package instructions 21 tablet 03/03/20 25 025 Encounters Date Type Department Care Team Description 03/03/2025 10:15 AM EDT Office Visit [facility]opedic [facility] [place] [address] [phone] Tod Little DPM Metatarsalgia of right foot (Primary Dx); Follow-up exam 02/01/2025 9:45 AM EDT Consult Orthopedic [place] [address] [phone] Tod Little DPM Metatarsalgia of right foot [...] AM EDT Office Visit [facility] - [place] [address] [phone] Tod Little, DPM [address] [address] Health Maintenance Due Date Last Done Comments [...] from Last 3 Months Insurance [place] - [place] [facility] MEDIC[facility] Member Subscriber Plan / Payer (Ef fective 2019-Present) Name:Ian Godinez Relation to Subscriber:Self Name:Ian Godinez Payer ID:[id number] Group ID:[id number] Type:Not on file Address: [address] [place] [address] Care Teams Director Child Relationship Specialty Start Date End Date Tor Villela MD [address] [place] [address] PCP - General 07/29/24
--- OUTSIDE RECORDS SUMMARY | 2025-03-14 12:54 | XMS_ITS | Clinical Summary ---
Author Organization [facility] Address [address] [facility] [address] [place] [address] Phone Care Team Providers Care Music Writer Name Role Phone Tro Guzman MD Primary Care Provider Unav ailable [...] (6 to 49 Years) Discontinued 04/17/2023 Insurance [facility] ([id number]) , [place] [address] [facility] MCR ([id number]) Care Teams Music Writer Relationship Specialty Start Date End Date Tor Guzman MD PCP - General 11/06/20
--- NOTE | 2025-03-14 13:19 | A.OFFVIS_ITS ---
Vital Signs 03/14/25 13:20 Height 5 ft 7 in Weight 200 lb BMI 31.3 BP 90/62 Blood Pressure Location Lt brachial Position Sitting Pulse 68 Pulse Source Pulse Oximeter Intake Visit Reasons: follow up rs from 12/14/ device ck Designer/Writer Required: Yes Designer/Writer Language: Director Of Financial Planning Name: voice urban [phone] Cigarette Examiner: Cigarette Examiner Present Allergies No Known Allergies [No Known Allergies*] Allergy (Verified 03/14/25 13:21) Medication List - Last Reconciled 03/14/25 by CONCHITA Davies acetaminophen (Tylenol Extra Strength) 1,000 mg (2 x 500 mg) PO QID PRN albuterol sulfate 90 mcg/actuation 2 inhalations inhalation Q4-6H PRN aspirin 81 mg PO DAILY blood sugar diagnostic (FreeStyle Lite Strips) As directed four times a day carvedilol (Coreg) 6.25 mg PO BID cholecalciferol (vitamin D3) 1,250 mcg PO QWEEK 12 days digoxin 250 mcg PO DAILY doxycycline hyclate 100 mg PO BID empagliflozin (Jardiance) 25 mg PO DAILY fenofibrate 54 mg PO DAILY flash glucose scanning reader (Job App PlusStyle Garrick 2 [place]) As directed flash glucose sensor (FreeStyle Garrick 2 Sensor kit) As directed every 2 weeks furosemide 40 mg PO DAILY glyburide 10 mg (2 x 5 mg) PO BIDWM hydroxyzine pamoate 50 mg PO BEDTIME PRN insulin aspart U-100 See Protocol sliding scale doses subcut TIDAC insulin glargine 40 units subcut BEDTIME ivabradine (Corlanor) 7.5 mg PO BID lancets (TRUEplus Lancets) Four times a day metformin 500 mg PO BID metoprolol succinate ER 12.5 mg PO DAILY mirtazapine 45 mg PO BEDTIME nebulizers (AeroEclipse II Nebulizer) As directed omega 2-dtj-hyw-fish oil 300 mg (120 mg- 180mg)-1,000 mg 1 cap PO TID omeprazole 40 mg PO DAILY@0630 pen needle, diabetic (Pentips Pen Needle) As directed prednisone 20 mg orally; 3 tabs daily for 3 days, 2 tabs daily for 3 days, 1 tab daily for 3 days sacubitril-valsartan 24-26 mg (Entresto) 1 tab See Protocol PO BID semaglutide (Ozempic) 0.5 mg subcut WE sertraline 200 mg PO DAILY spironolactone 12.5 mg See Protocol PO DAILY HPI HPI follow up rs from ck: Details: Oliver is a 54-year-old male with past medical history of obesity, hypertension, hyperlipidemia, diabetes, chronic kidney disease, obstructive sleep apnea with CPAP use, nonischemic cardiomyopathy, Bi V ICD who presents for follow-up. Today he reports he has been doing well since his last visit in May. He has not had any recent hospitalizations. He has an upcoming visit at [facility] for follow-up. No concerning shortness of breath, no PND, orthopnea or edema. No heart palpitations, lightheadedness, presyncope, syncope. No chest discomfort at rest or with activity. Compliant with all meds. Certified ocular care technician used. [facility] Medical History ICD (implantable cardioverter-defibrillator) lead failure Biventricular ICD (implantable cardioverter-defibrillator) in place Nonischemic cardiomyopathy GERD (gastroesophageal reflux disease) Asthma NANO (obstructive sleep apnea) Obesity due to excess calories HLD (hyperlipidemia) Type 2 diabetes mellitus with chronic kidney disease Heart failure with reduced ejection fraction Implantable cardioverter-defibrillator lead failure High cholesterol Diabetes HTN (hypertension) Pacemaker Surgical History S/P ICD (internal cardiac defibrillator) procedure History of tonsillectomy Hx of cardiac cath Hx of transesophageal echocardiography (DAWN) for monitoring History of permanent cardiac pacemaker placement (~2008) History of circumcision Family History Father HTN (hypertension) Diabetes CVD (cardiovascular disease) Hypercholesterolemia Mother Hypercholesterolemia HTN (hypertension) Diabetes Social History Household Members: Spouse Household Members Other:: SO:Thu Housing: Apartment Do you presently have visiting nurse or other home services: No Alcohol intake: current Alcohol intake frequency: 3 or more drinks per day Patient Tobacco Use Status: Never used Tobacco Tobacco use type: Cigarette service: No Review of Systems Const All systems reviewed & are unremarkable except as noted in HPI and below ENT Denies dizziness Card Denies chest pain, Denies chest pain at rest, Denies chest pain with activity, Denies rapid heart rate, Denies pedal edema, Denies edema, Denies leg edema, Denies lightheadedness, Denies palpitations, Denies dyspnea, Denies dyspnea on exertion and Denies orthopnea Resp Denies cough, Denies dyspnea and Denies dyspnea on exertion GI Denies hematochezia and Denies change in stool character Musc Denies abnormal gait, Denies limited range of motion, Denies muscle cramps, Denies muscle weakness, Denies numbness, Denies radiating pain into limb, Denies stiffness and Denies tingling Neuro Denies abnormal gait, Denies dizziness, Denies numbness and Denies tingling Endo Denies palpitations Physical Exam Vital Signs: Last Vital Signs Pulse 68 03/14/25 13:20 BP 90/62 03/14/25 13:20 BMI result Body Mass Index 31.3 Const General: cooperative, healthy appearing, comfortable and no acute distress Orientation/consciousness: patient oriented x3 Neck Neck: Yes normal visual inspection and Yes no JVD Resp Effort & Inspection: normal respiratory effort Auscultation: clear to auscultation bilaterally, no crackles, no rales, no rhonchi and no wheezes Cardio Jugular venous distension: no JVD Rate: regular rate Rhythm: regular rhythm Heart sounds: S1 normal heart sound present, S2 normal heart sound present, no gallops, no murmurs and no rubs Neuro General: patient oriented x3 Extrem General: Yes normal to inspection, No no pedal edema and No calf tenderness Psych Appearance: grossly normal Mental Status: mental status grossly normal Speech and movement: Normal speech and movement present Office Procedures Cardiac Device Check Cardiac Device Check Details: Tap.Me Bi V ICD battery 10 years, DDD mode, RV and LV pacing 96%, right atrial threshold 0.7 volts at 0.4 milliseconds, RV threshold 1 volt at 0.4 milliseconds, LV threshold 0.7 volts at 0.4 milliseconds episodes of PMT very brief episode of atrial flutter 12/30/2024, brief episode of NSVT 10/13/2024 76230-AD Cardiac Device Check, multi lead implantable defibrillator Procedure code (CPT) selection complete Assessment & Plan Assessment & Plan (1) Nonischemic cardiomyopathy: Comment: Follows with Dr Nielson and at [facility] Code(s): I42.8 - Other cardiomyopathies Category: Medical Plan: History of nonischemic cardiomyopathy with prior cardiac catheterizations showed normal coronary arteries. He had done well on GDMT and most recent echocardiogram 07/26/2024 showed EF 45-50%. He follows with [facility] heart failure clinic and says he has a follow-up visit in March. His medication list today does include both carvedilol and metoprolol. He says he has a pill pack and these are both in it. Meds reviewed with Dr. Nielson. Will have him stop metoprolol. Increase carvedilol to 12.5 mg b.i.d.. Continue Entresto, Corlanor, Jardiance, digoxin, Lasix. Will have him stop spironolactone as his blood pressure is low at 90/62. Signs and symptoms of heart failure reviewed with him. Cardiology follow-up 6 months, sooner if needed. (2) Biventricular ICD (implantable cardioverter-defibrillator) in place: Code(s): Z95.810 - Presence of automatic (implantable) cardiac defibrillator Category: Medical Plan: Listar Bi V ICD in place and functioning normally on interrogation today. Remote monitoring in use. (3) NANO (obstructive sleep apnea): Code(s): G47.33 - Obstructive sleep apnea (adult) (pediatric) Category: Medical Plan: He reports compliance with his CPAP (4) HTN (hypertension): Code(s): I10 - Essential (primary) hypertension Category: Medical Qualifiers: Hypertension type: primary hypertension Qualified Code(s): I10 - Essential (primary) hypertension Plan: Blood pressure on low side, asymptomatic. Med changes made as above. Plan Time spent on chart review, documentation, interview and assesment Medications: Changed From carvedilol (Coreg) must administer with a meal/food 6.25 mg PO BID 60 tabs 5RF To carvedilol (Coreg) must administer with a meal/food dose increase 12.5 mg (2 x 6.25 mg) PO BID 60 tabs 5RF Discontinued spironolactone Discontinued Reason: Doctor's Order 12.5 mg See Protocol PO DAILY 30 tabs 0RF Patient Instructions: -Medication changes as discussed. - Exercise regularly, and report any new symptoms such as dizziness or increased fatigue. - Monitor blood pressure and report if symptoms arise. - Ensure compliance with all directed therapies and lifestyle modifications. - Seek immediate care if experiencing severe symptoms like chest pain or shortness of breath. Coding Level of Care Code Est Pt Level 4 (28599) Diagnoses Nonischemic cardiomyopathy I42.8 Biventricular ICD (implantable cardioverter-defibrillator) in place Z95.810 NANO (obstructive sleep apnea) G47.33 Primary hypertension I10 Hypertension type: primary hypertension CPT Codes Cardiac Device Check - Cardiac Device 6: 28082-FU Cardiac Device Check, multi lead implantable defibrillator ([id number]) Time Spent (min) 34
[2025-03-14 13:20] VITALS: BP 90/62; PULSE 68; BMI 31.3
== END 2025-03-14 13:46 | disposition home or self-care (01) ==
LOC: HO.HCS 12:34
PROVIDERS: PCP Internal Medicine; Visit Provider Nurse Practitioner Family
DX: I42.8 Other cardiomyopathies (principal); Z95.810 Presence of automatic (implantable) cardiac defibrillator; G47.33 Obstructive sleep apnea (adult) (pediatric); I10 Essential (primary) hypertension
CPT/HCPCS: 93284; 99214

== ENCOUNTER 2025-03-23 11:14 | Outpatient (AMB) | payer OTHER, SELFPAY ==
[2025-03-23 11:29] VITALS: BP 82/58; PULSE 80; O2SAT 95; BMI 31.3
--- NOTE | 2025-03-23 11:29 | HO.NEPHOV ---
Vital Signs 03/23/25 11:29 Height 5 ft 7 in Weight 200 lb BMI 31.3 BP 82/58 L Blood Pressure Location Lt brachial Position Sitting Pulse 80 Pulse Source Pulse Oximeter Pulse Oximetry (%) 95 Oxygen Delivery Method Room Air Intake Visit Reasons: CKD-Conf Sisal Operator Required: No Sisal Operator Services: Sisal Operator Offered & Declined Accompanied by: Spouse Allergies Seasonal Allergies Allergy (Unknown, Verified 03/23/25 11:32) Unknown HPI Comments Details: Ian was seen in follow-up his chronic kidney disease. He has cardiomyopathy. He is followed up in [place] for his heart issues. His diabetic control is better. He is now compliant with medications. His was physically present during the encounter. He denies any chest pain, shortness of breath, nausea, vomiting, diarrhea, pedal edema or dizziness. He denies taking nonsteroidal anti-inflammatory medications. His recent serum creatinine is close to baseline [facility] Medical History ICD (implantable cardioverter-defibrillator) lead failure Biventricular ICD (implantable cardioverter-defibrillator) in place Nonischemic cardiomyopathy GERD (gastroesophageal reflux disease) Asthma NANO (obstructive sleep apnea) Obesity due to excess calories HLD (hyperlipidemia) Type 2 diabetes mellitus with chronic kidney disease Heart failure with reduced ejection fraction Implantable cardioverter-defibrillator lead failure High cholesterol Diabetes HTN (hypertension) Pacemaker Surgical History S/P ICD (internal cardiac defibrillator) procedure History of tonsillectomy Hx of cardiac cath Hx of transesophageal echocardiography (DAWN) for monitoring History of permanent cardiac pacemaker placement (~2008) History of circumcision Family History Father HTN (hypertension) Diabetes CVD (cardiovascular disease) Hypercholesterolemia Mother Hypercholesterolemia HTN (hypertension) Diabetes Social History Household Members: Spouse Household Members Other:: SO:Thu Housing: Apartment Do you presently have visiting nurse or other home services: No Alcohol intake: current Alcohol intake frequency: 3 or more drinks per day Patient Tobacco Use Status: Never used Tobacco Tobacco use type: Cigarette service: No Review of Systems Const All systems reviewed & are unremarkable except as noted in HPI and below Physical Exam Vital Signs: Last Vital Signs Pulse 80 03/23/25 11:29 BP 82/58 L 03/23/25 11:29 Pulse Ox 95 03/23/25 11:29 Oxygen Delivery Method Room Air 03/23/25 11:29 BMI result Body Mass Index 31.3 Const General: comfortable and no acute distress Orientation/consciousness: patient oriented x3 HEENT Head: Yes normocephalic Mouth: Normal oral and palatal mucosa present Eyes EOM: EOMs intact bilaterally Neck Neck: Yes supple Resp Auscultation: clear to auscultation bilaterally Cardio Jugular venous distension: no JVD Rate: regular rate GI Palpation (GI): Soft to palpation Auscultation: normal bowel sounds General: Yes no CVA tenderness Back/Spine/Pelvis Back: no CVA tenderness Skin General skin exam: no rashes or lesions noted Neuro General: patient oriented x3 and moves all extremities Extrem General: Yes no pedal edema Results Reviewed Nephrology Results: Hgb 16.0 g/dl (14.0-18.0) 12/30/24 WBC 8.0 X10*3/uL (4.8-10.8) 12/30/24 Plt Count 252 X10*3/uL (160-400) 12/30/24 Sodium 141 mmol/L (135-145) 03/14/25 Potassium 4.1 mmol/L (3.3-5.1) 03/14/25 Chloride 104 mmol/L (96-108) 03/14/25 Carbon Dioxide 25 mmol/L (22-29) 03/14/25 BUN 28 mg/dL (9-16) H 03/14/25 Creatinine 1.55 mg/dL (0.5-1.4) H 03/14/25 Calcium 9.6 mg/dL (8.4-10.2) 12/30/24 Urine Protein Negative mg/dL (Neg-Trace) 12/30/24 Assessment & Plan Assessment & Plan (1) CKD stage G3b/A1, GFR 30-44 and albumin creatinine ratio <30 mg/g: Code(s): N18.32 - Chronic kidney disease, stage 3b Category: Medical (2) HTN (hypertension): Code(s): I10 - Essential (primary) hypertension Category: Medical Qualifiers: Hypertension type: primary hypertension Qualified Code(s): I10 - Essential (primary) hypertension Plan Ian has chronic kidney disease & the serum creatinine is close to baseline now. His blood sugar control is better. He is on Jardiance as well as Entresto. He is followed up closely in [place] for his cardiomyopathy. If his cardiac function and renal function decline he will need evaluation for heart and kidney transplantation. I reiterated the need for compliance with medications and keeping his blood sugar at goal. He is also on spironolactone as well with serum K being normal . His volume status is optimal. He should avoid nonsteroidal anti-inflammatory medications. All his and his 's questions were answered. Follow-up blood work was ordered. Follow-up appointment was given Orders: Orders Blood Urea Nitrogen 3 Months N18.32 - Chronic kidney disease, stage 3b Creatinine 3 Months N18.32 - Chronic kidney disease, stage 3b Electrolytes 3 Months N18.32 - Chronic kidney disease, stage 3b Coding Level of Care Code Est Pt Level 4 (75487) Diagnoses CKD stage G3b/A1, GFR 30-44 and albumin creatinine ratio <30 mg/g N18.32 Primary hypertension I10 Hypertension type: primary hypertension
--- OUTSIDE RECORDS SUMMARY | 2025-03-23 12:15 | XMS_ITS | Encounter Summary ---
Author Organization [employer] Address [address] [facility] [address] [place] [address] Care Team Providers Care Gas Plant Worker Name Role Phone Tor Crews MD Primary Care Provide r Reason for Visit * Reason Comments Med Refill Encounter Details Date Type Department Care Team (Late st Contact Info) Description 12/19/2023 Refill [facility] MED & PEDS [address] [place], [place] [phone] Sinai Sesay MD [address] [place] [address] Social History Tobacco Use Types Packs/Day Years [...] Description 04/04/2025 11:00 AM EDT Office Visit [facility] ADULT DENTAL [address] [place] [address] Kristen Perez 05/17/2025 11:30 AM EDT Office Visit [facility] MEDICINE [address] [place] [address] Tor Crews MD [address] [place] [phone] 06/01/2025 10:00 AM EDT Office Visit [facility] ADULT DENTAL [address] [place] [address] Juliann Johnson [address] [place] [address] [phone] documented as of this encounter Visit Diagnoses Not on filedocumented in this encounter Additional Health Concerns Assessment Noted Time PHQ-9 Depression Total Score: 4 03/04/20 23 2:58 PM EDT documented as of this encounter Care Teams Gas Plant Worker Relationship Specialty Start Date End Date Tor Crews MD [address] [place] [address] PCP - General Internal Medicine 07/21/14 documented as of this encounter
== END 2025-03-23 11:40 | disposition home or self-care (01) ==
LOC: HO.HKA 11:15
PROVIDERS: PCP Internal Medicine; Visit Provider Internal Medicine Nephrology
DX: N18.32 Chronic kidney disease, stage 3b (principal); I10 Essential (primary) hypertension
CPT/HCPCS: 99214

== ENCOUNTER → 2025-03-23 11:14 | Outpatient (BNVA) | payer OTHER, SELFPAY | PROVIDERS: PCP Internal Medicine; Visit Provider Internal Medicine Nephrology | DX: I42.9 Cardiomyopathy, unspecified (principal); I12.9 Hypertensive chronic kidney disease with stage 1 through stage 4 chronic kidney disease, or unspecified chronic kidney disease; N18.32 Chronic kidney disease, stage 3b | CPT/HCPCS: 99212 ==

== ENCOUNTER → 2025-04-17 20:30 | Outpatient (BNV) | payer OTHER, SELFPAY | PROVIDERS: PCP Internal Medicine; Visit Provider Psychiatry & Neurology Neurology | DX: G47.33 Obstructive sleep apnea (adult) (pediatric) (principal) | CPT/HCPCS: 95811 ==

== ENCOUNTER → 2025-04-17 20:30 | Outpatient (REF) | payer OTHER, SELFPAY ==
--- OUTSIDE RECORDS SUMMARY | 2025-04-17 21:49 | XMS_ITS | Encounter Summary ---
Author Organization [employer] Address [address] [facility] [address] 7[address] [place] [address] Care Team Providers Care Food And Beverage Server Name Role Phone Tor Crews MD Primary Care Provide r Reason for Visit * Reason Comments Med Refill Encounter Details Date Type Department Care Team (Late st Contact Info) Description 12/19/[address] [facility] MED & PEDS [address] [place], [place] [phone] Sinai Sesay MD [address] [place] [address] Social History Tobacco Use Types Packs/Day Years [...] Care Team (Late st Contact Info) Description 05/17/2025 11:30 AM EDT Office [address] [facility] MEDICINE [address] [place] [address] Tor Crews MD [address] [place] [address] 06/01/2025 10:00 AM EDT Office Visit [facility] ADULT DENTAL [address] [place] [address] Juliann Johnson [address] [place], [place] [phone] documented as of this encounter Visit Diagnoses Not on filedocumented in this encounter Additional Health Concerns Assessment Noted Time PHQ-9 Depression Total Score: 4 03/04/20 23 2:58 PM EDT documented as of this encounter Care Teams Food And Beverage Server Relationship Specialty Start Date End Date Tor Crews MD [address] [place] [id number] PCP - General Internal Medicine 07/21/14 documented as of this encounter
== END ==
LOC: HO.SL 20:30
PROVIDERS: PCP Internal Medicine; Visit Provider Nurse Practitioner Family
DX: G47.33 Obstructive sleep apnea (adult) (pediatric) (principal); G47.34 Idiopathic sleep related nonobstructive alveolar hypoventilation
CPT/HCPCS: 95811

== ENCOUNTER → 2025-05-24 23:59 | Outpatient (BNV) | payer OTHER, SELFPAY ==
--- NOTE | 2025-05-27 14:23 | A.OFFVIS_ITS ---
Intake Visit Reasons: Remote ICD check- [employer] Allergies Seasonal Allergies Allergy (Unknown, Verified 03/23/25 11:32) Unknown [facility] Medical History ICD (implantable cardioverter-defibrillator) lead failure Biventricular ICD (implantable cardioverter-defibrillator) in place Nonischemic cardiomyopathy GERD (gastroesophageal reflux disease) Asthma NANO (obstructive sleep apnea) Obesity due to excess calories HLD (hyperlipidemia) Type 2 diabetes mellitus with chronic kidney disease Heart failure with reduced ejection fraction Implantable cardioverter-defibrillator lead failure High cholesterol Diabetes HTN (hypertension) Pacemaker Surgical History S/P ICD (internal cardiac defibrillator) procedure History of tonsillectomy Hx of cardiac cath Hx of transesophageal echocardiography (DAWN) for monitoring History of permanent cardiac pacemaker placement (~2008) History of circumcision Family History Father HTN (hypertension) Diabetes CVD (cardiovascular disease) Hypercholesterolemia Mother Hypercholesterolemia HTN (hypertension) Diabetes Social History Household Members: Spouse Household Members Other:: SO:Thu Housing: Apartment Do you presently have visiting nurse or other home services: No Alcohol intake: current Alcohol intake frequency: 3 or more drinks per day Patient Tobacco Use Status: Never used Tobacco Tobacco use type: Cigarette service: No Office Procedures Cardiac Device Check Cardiac Device Check Details: Remote ICD report generated 05/22/2025. ICD function is adequate. Bi V pacing 97% of the time [id number] Cardiac Interrogation, implant defibrillator w/interim Procedure code (CPT) selection complete Assessment & Plan Assessment & Plan (1) Biventricular ICD (implantable cardioverter-defibrillator) in place: Code(s): Z95.810 - Presence of automatic (implantable) cardiac defibrillator Category: Medical Plan: See above Coding Level of Care Code Procedure Only Diagnoses Biventricular ICD (implantable cardioverter-defibrillator) in place Z95.810 CPT Codes Cardiac Device Check - Cardiac Device 13: [id number] Cardiac Interrogation, implant defibrillator w/interim ([id number])
== END ==
PROVIDERS: PCP Internal Medicine; Visit Provider Internal Medicine Cardiovascular Disease
DX: Z45.02 Encounter for adjustment and management of automatic implantable cardiac defibrillator (principal)
CPT/HCPCS: 93295

== ENCOUNTER 2025-06-17 13:04 | Outpatient (REF) | payer OTHER, SELFPAY ==
--- OUTSIDE RECORDS SUMMARY | 2025-06-17 13:07 | XMS_ITS | Clinical Summary ---
Author Organization [address] [place] [address] Address [address] [place] [address] Phone Care Team Providers Care Printer Technician Name Role Phone Tor Villela MD Primary Care Provi pepe Allergies No known active allergies Medications No known medications Encounters Date Type Department Care Team Description 04/07/2025 10:30 AM EDT Office Visit Orthopedic [facility] [address] [phone] Tod Little DPM Metatarsalgia of right foot (Primary Dx); Neuroma from Last 3 Months Social History Tobacco [...] Oxygen Concentration - - Weight 90.7 kg (199 lb 15.3 oz) 025 10:20 AM EDT Height 170.2 cm (5' 7.01 ) 04/07/2025 1 0:20 AM EDT Body Mass Index 31.31 04/07/2025 10:20 AM EDT Plan of Treatment Upcoming Encounters Date Type Department Care Team (Late st Contact Info) Description 07/18/2025 9:15 AM EDT Office Visit Orthopedic [facility] [address] [phone] Tod Little DPM [address] [address] Health Maintenance Due Date Last Done Comments Diabetes: Annual Foot Exam 1981 Diabetes: Annual Retina Eye Exam 1981 COVID-19 Vaccine ( season) 2024 11/20/2021, 01/10/2021, 12/20/2020 Hepatitis B Vaccines (2 of 3 - 19+ 3-dose series) 10/19/2024 09/21/2024 Depression Screening 10/27/2024 Cholesterol Screening (Lipid Panel) 11/26/2024 Colorectal Cancer Screening: Colonoscopy 11/26/2024 HIV Screening 11/26/2024 Hepatitis C Screening 11/26/2024 Medicare Annual Wellness Visit 11/26/2024 Social Influencers of Health Screening 11/26/2024 Diabetes: Annual Urine Albumin-Creatinine Ratio (uACR) 02/01/2025 Diabetes: Blood Sugar Control Test (HGBA1C) 06/06/2025 12/07/2024, 07/01/2024 Influenza Vaccine (#1) 2025 , 08/21/2023, 10/26/2015, Additional history exists Diabetes: Annual GFR (Glomerular Filtration Rate) 12/28/2025 12/28/2024, 11/03/2024 Hypertension/CHF/CAD Annual BMP Blood Test 12/28/2025 12/28/2024, 11/03/2024 DTaP,Tdap,and Td Vaccines (3 - Td or Tdap) 10/16/2034 10/16/2024, 10/26/2015 Pneumococcal Vaccine: 50+ Years Completed 04/17/2023, 02/03/2012 Zoster Vaccines Completed 04/17/2023, 02/13/2023 HIB Vaccines Aged Out No longer eligi [...] Procedure Name Priority Date/Time Associated Diagnosis Comments INJECTION TENDON OR LIGAMENT Routine 04/07/2025 10:30 AM EDT Neuroma from Last 3 Months Results * Injection tendon or ligament (04/07/2025 10:30 AM EDT) Tod Cifuentes DPM - 04/07/2025 10:30 AM EDT Tod Little DPM 04/07/2025 12:27 PM Injection tendon or ligament Indications: pain Details: 25 G needle Medications: 0.5 mL lidocaine (PF) 1 %; 20 mg triamcinolone acetonide 40 mg/mL Informed Consent: Site: Foot ligament tendon Tod Little DPM IN CLINIC/BEDSIDE ORDERAB LES Final Result from Last 3 Months Insurance [place] - [place] [facility] MEDIC[facility] Member Subscriber Plan / Payer (Ef fective 2019-Present) Name:GODINEZ CARMINA Relation to Subscriber:Self Name:Carmina Godinez Payer ID:[id number] Group ID:[id number] Type:Not on file Address: [address] [place] [address] Care Teams Printer Technician Relationship Specialty Start Date End Date Tor Villela MD [address] [place] [address] [place] [phone] PCP - General 07/29/24
--- OUTSIDE RECORDS SUMMARY | 2025-06-17 13:07 | XMS_ITS | Encounter Summary ---
Author Organization [employer] Address [address] [facility] [address] 7[address] [place] [address] Care Team Providers Care Head Boys Golf Coach Name Role Phone Tor Crews MD Primary Care Provide r Reason for Visit * Reason Comments Med Refill Encounter Details Date Type Department Care Team (Late st Contact Info) Description 12/19/2023 Refill [facility] CHC MED & PEDS [address] [place], [place] [phone] Sinai Sesay MD [address] [place] [address] Social History Tobacco Use Types Packs/Day Years [...] Care Team (Late st Contact Info) Description 09/14/2025 9:00 AM EST Office Visit [facility] OPTOM[facility] [address] [place], [place] [phone] Nohemi Canseco, OD [address] [place] [address] documented as of this encounter Visit Diagnoses Not on filedocumented in this encounter Additional Health Concerns Assessment Noted Time PHQ-9 Depression Total Score: 4 03/04/20 23 2:58 PM EDT documented as of this encounter Care Teams Head Boys Golf Coach Relationship Specialty Start Date End Date Tor Crews MD [address] [place] [address] PCP - General Internal Medicine 07/21/14 documented as of this encounter
--- OUTSIDE RECORDS SUMMARY | 2025-06-17 13:07 | XMS_ITS | Patient Health Record ---
Author Organization [facility] Address [address] [place] [address] Care Team Providers Care Manager Consumer Name Role Phone Megan Bañuelos MD, Tor Primary Care Provide r Unavailable Juan M Morel Unavailable [phone] Allergies No Known Allergies Reason For Referral [...] Problem Status W/U Status Risk Notes Problem [id number] Encounter for screening for malignant neoplasm of colon (Z12.11) Active confirmed Problem Gastritis (4666159) Gastritis (K29.70) Active confirmed Problem Gastroesophageal reflux (K21.9) Active confirmed Problem Diverticulosis of colon (379625393) Diverticulosis of colon (K57.30) Active confirmed Problem 822879708 Gastroesophageal reflux disease, unspecified whether esophagitis present (K21.9) Active confirmed Plan Of Treatment Pending Test Test Name Order Date Pathology 01/25/2022 Future Test Test Name Order Date UPPER GI ENDOSCOPY 10/09/2021 COLONOSCOPY 10/09/2021 Insurance Providers Payer Name Payer Address Payer Phone Subscriber Number Group Number Insured Name Patient Relationship to Insured Coverage Start Date Coverage End Date [facility] [address] [place] [address] [id number] CARMINA LOMAX Self - patient is the insured Medical (General) History Medical History History ICD Code GERD IDDM Hypertension Nonischemic cardiomyopathy-Johnny Nielson---seen at [facility] in [place] for ? cardiac transplant, but not on active list Sleep apnea- cpap machine Depression CHF Hyperlipidemia CKD stage 3 Asthma Pacemaker Denies [place],CVA Surgical History Surgery Date(Month/Year) Pacemaker 2008
--- OUTSIDE RECORDS SUMMARY | 2025-06-17 13:08 | XMS_ITS | Clinical Summary ---
Author Organization [facility] Address [address] [address] [place] [address] Phone Care Team Providers Care Handle Attacher Name Role Phone Tor Guzman MD Primary [...] at ortho on 02/27 for for injection of methylPREDNISolone acetate [DEPO-MedroL] 40 mg. They stated, he patient had a cortisone injection on 09/26/2022. He states the injection gave him relief. Pt was referred to PT by Destini [...] 10/14/2023 023, 05/13/2023, 02/05/2023 Influenza Vaccine (#1) 2025 10/26/2015, 2012 Colorectal Cancer Screening: Colonoscopy 01/26/2032 01/25/2022 Pneumococcal Vaccine: 50+ Years Completed Pneumococcal Vaccine: Peds ( 0 to 5 Years) and At-Risk Patients (6 to 49 Years) Discontinued 04/17/2023 Insurance [facility] ([id number]) [facility] ([id number]) Care Teams Handle Attacher Relationship Specialty Start Date End Date Tor Guzman MD PCP - General 11/06/20
[2025-06-17 14:27] LABS: Anion Gap 17 (12-20); Blood Urea Nitrogen 23 mg/dL (9-16); Carbon Dioxide 23 mmol/L (22-29); Chloride 104 mmol/L (96-108); Estimated Glomerular Filt Rate 41; Potassium 3.9 mmol/L (3.3-5.1); Sodium 140 mmol/L (135-145)
== END 2025-06-17 13:05 | disposition home or self-care (01) ==
LOC: HO.LAB 13:04
PROVIDERS: PCP Internal Medicine; Visit Provider Internal Medicine Nephrology
DX: N18.32 Chronic kidney disease, stage 3b (principal)
CPT/HCPCS: 36415; 80051; 82565; 84520

== ENCOUNTER 2025-06-22 09:40 | Outpatient (AMB) | payer OTHER, SELFPAY ==
--- NOTE | 2025-06-22 09:43 | HO.NEPHOV_ITS ---
Vital Signs 06/22/25 09:45 Height 5 ft 7 in Weight 199 lb 6 oz BMI 31.2 BP 106/70 Blood Pressure Location Lt brachial Position Sitting Pulse 78 Pulse Source Pulse Oximeter Pulse Oximetry (%) 97 Oxygen Delivery Method Room Air Intake Visit Reasons: 3 MO FU-Conf Varnishing Machine Operator Required: Yes Varnishing Machine Operator Language: Mica Patcher Services: Varnishing Machine Operator Offered & Declined ([facility] field appraiser services refused. ) Accompanied by: Self / Same As Patient Allergies Seasonal Allergies Allergy (Unknown, Verified 06/22/25 09:44) Unknown HPI Comments Details: Ian was seen in follow-up his chronic kidney disease. He has cardiomyopathy. He is followed up in [place] for his heart issues. His diabetic control is better. He is now compliant with medications. His was physically present during the encounter. He denies any chest pain, shortness of breath, nausea, vomiting, diarrhea, pedal edema or dizziness. He denies taking nonsteroidal anti-inflammatory medications. His recent serum creatinine is close to baseline [facility] Medical History ICD (implantable cardioverter-defibrillator) lead failure Biventricular ICD (implantable cardioverter-defibrillator) in place Nonischemic cardiomyopathy GERD (gastroesophageal reflux disease) Asthma NANO (obstructive sleep apnea) Obesity due to excess calories HLD (hyperlipidemia) Type 2 diabetes mellitus with chronic kidney disease Heart failure with reduced ejection fraction Implantable cardioverter-defibrillator lead failure High cholesterol Diabetes HTN (hypertension) Pacemaker Surgical History S/P ICD (internal cardiac defibrillator) procedure History of tonsillectomy Hx of cardiac cath Hx of transesophageal echocardiography (DAWN) for monitoring History of permanent cardiac pacemaker placement (~2008) History of circumcision Family History Father HTN (hypertension) Diabetes CVD (cardiovascular disease) Hypercholesterolemia Mother Hypercholesterolemia HTN (hypertension) Diabetes Social History Household Members: Spouse Household Members Other:: SO:Thu Housing: Apartment Do you presently have visiting nurse or other home services: No Alcohol intake: current Alcohol intake frequency: 3 or more drinks per day Patient Tobacco Use Status: Never used Tobacco Tobacco use type: Cigarette service: No Review of Systems Const All systems reviewed & are unremarkable except as noted in HPI and below Physical Exam Vital Signs: Last Vital Signs Pulse 78 06/22/25 09:45 BP 106/70 06/22/25 09:45 Pulse Ox 97 06/22/25 09:45 Oxygen Delivery Method Room Air 06/22/25 09:45 BMI result Body Mass Index 31.2 Const General: comfortable and no acute distress Orientation/consciousness: patient oriented x3 HEENT Head: Yes normocephalic Mouth: Normal oral and palatal mucosa present Eyes EOM: EOMs intact bilaterally Neck Neck: Yes supple Resp Auscultation: clear to auscultation bilaterally Cardio Jugular venous distension: no JVD Rate: regular rate GI Palpation (GI): Soft to palpation Auscultation: normal bowel sounds General: Yes no CVA tenderness Back/Spine/Pelvis Back: no CVA tenderness Skin General skin exam: no rashes or lesions noted Neuro General: patient oriented x3 and moves all extremities Extrem General: Yes no pedal edema Results Reviewed Nephrology Results: Sodium, (135-145) 140 mmol/L 06/17/25 Potassium, (3.3-5.1) 3.9 mmol/L 06/17/25 Chloride, (96-108) 104 mmol/L 06/17/25 Carbon Dioxide, (22-29) 23 mmol/L 06/17/25 BUN, (9-16) 23 mg/dL H 06/17/25 Creatinine, (0.5-1.4) 1.75 mg/dL H 06/17/25 Assessment & Plan Assessment & Plan (1) HTN (hypertension): Code(s): I10 - Essential (primary) hypertension Category: Medical Qualifiers: Hypertension type: primary hypertension Qualified Code(s): I10 - Essential (primary) hypertension (2) CKD stage G3b/A1, GFR 30-44 and albumin creatinine ratio <30 mg/g: Code(s): N18.32 - Chronic kidney disease, stage 3b Category: Medical Plan Ian has chronic kidney disease & the serum creatinine is close to baseline now. His blood sugar control is better. He is on Jardiance as well as Entresto. He is followed up closely in [place] for his cardiomyopathy. If his cardiac function and renal function decline he will need evaluation for heart and kidney transplantation. I reiterated the need for compliance with medications and keeping his blood sugar at goal. He is also on spironolactone as well with serum K being normal . His volume status is optimal. He should avoid nonsteroidal anti-inflammatory medications. All his and his 's questions were answered. Follow-up blood work was ordered. Follow-up appointment was given Orders: Orders Creatinine 3 Months I10 - Essential (primary) hypertension, N18.32 - Chronic kidney disease, stage 3b Blood Urea Nitrogen 3 Months I10 - Essential (primary) hypertension, N18.32 - Chronic kidney disease, stage 3b Electrolytes 3 Months I10 - Essential (primary) hypertension, N18.32 - Chronic kidney disease, stage 3b Coding Level of Care Code Est Pt Level 4 (86604) Diagnoses Primary hypertension I10 Hypertension type: primary hypertension CKD stage G3b/A1, GFR 30-44 and albumin creatinine ratio <30 mg/g N18.32
[2025-06-22 09:45] VITALS: BP 106/70; PULSE 78; O2SAT 97; BMI 31.2
--- OUTSIDE RECORDS SUMMARY | 2025-06-22 10:20 | XMS_ITS | Clinical Summary ---
Author Organization [address] [place] [address] Address [address] [place] [address] Phone Care Team Providers Care Imcu Specialist Name Role Phone Tor Villela MD Primary Care Provi pepe Allergies No known active allergies Medications No known medications Encounters Date Type Department Care Team Description 04/07/2025 10:30 AM EDT Office Visit Orthopedic [facility] [address] [phone] Tod Little DPM Metatarsalgia of [...] 07/18/2025 9:15 AM EDT Office Visit Orthopedic [facility] [address] [address] Tod Little DPM [address] [place] [address] Health Maintenance Due Date Last Done Comments [...] mg/mL Informed Consent: Site: Foot ligament tendon us Tod Little DPM IN CLINIC/BEDSIDE ORDERAB LES Final Result from Last 3 Months Insurance [place]ICAID - [place] [facility] MEDICARE Member Subscriber Plan / Payer (Ef fective 2019-Present) Name:CARMINA GOIDNEZ Relation to Subscriber:Self Name:Carmina Godinez Payer ID:[id number] Group ID:[id number] Type:Not on file Address: [address] [place] [address] Care Teams Imcu Specialist Relationship Specialty Start Date End Date Tor Villela MD [facility] [place] [address] PCP - General 07/29/24
--- OUTSIDE RECORDS SUMMARY | 2025-06-22 10:20 | XMS_ITS | Clinical Summary ---
Author Organization [facility] Address [address] [place] [address] Phone Care Team Providers Care Finisher Special Stocks Name Role Phone Tor Guzmna MD Primary Care Provider Unav ailable Allergies [...] (6 to 49 Years) Discontinued 04/17/2023 Insurance [facility] ([id number]) [facility] ([id number]) Care Teams Finisher Special Stocks Relationship Specialty Start Date End Date Tor Guzman MD PCP - General 11/06/20
--- OUTSIDE RECORDS SUMMARY | 2025-06-22 10:20 | XMS_ITS | Patient Health Record ---
Author Organization [facility] Address [address] [place] [address] Care Team Providers Care Intelligence Operations Name Role Phone Megan Bañuelos MD, Tor Primary Care Provide r Unavailable Juan M Morel Unavailable [phone] Allergies No Known Allergies Reason For Referral [...] Problem Status W/U Status Risk Notes Problem [id number] Encounter for screening for malignant neoplasm of colon (Z12.11) Active confirmed Problem Gastritis (8453743) Gastritis (K29.70) Active confirmed Problem Gastroesophageal reflux (K21.9) Active confirmed Problem Diverticulosis of colon (230953588) Diverticulosis of colon (K57.30) Active confirmed Problem 150807316 Gastroesophageal reflux disease, unspecified whether esophagitis present (K21.9) Active confirmed Plan Of Treatment Pending Test Test Name Order Date Pathology 01/25/2022 Future Test Test Name Order Date UPPER GI ENDOSCOPY 10/09/2021 COLONOSCOPY 10/09/2021 Insurance Providers Payer Name Payer Address Payer Phone Subscriber Number Group Number Insured Name Patient Relationship to Insured Coverage Start Date Coverage End Date [facility] [address] [place] [address] [id number] CARMINA LOMAX Self - patient is the insured Medical (General) History Medical History History ICD Code GERD IDDM Hypertension Nonischemic cardiomyopathy-Johnny Nielson---seen at [facility] in [place] for ? cardiac transplant, but not on active list Sleep apnea- cpap machine Depression CHF Hyperlipidemia CKD stage 3 Asthma Pacemaker Denies [place],CVA Surgical History Surgery Date(Month/Year) Pacemaker 2008
== END 2025-06-22 09:55 | disposition home or self-care (01) ==
LOC: HO.HKA 09:41
PROVIDERS: PCP Internal Medicine; Visit Provider Internal Medicine Nephrology
DX: I10 Essential (primary) hypertension (principal); N18.32 Chronic kidney disease, stage 3b
CPT/HCPCS: 99214

== ENCOUNTER → 2025-06-22 09:40 | Outpatient (BNVA) | payer OTHER, SELFPAY | PROVIDERS: PCP Internal Medicine; Visit Provider Internal Medicine Nephrology | DX: N18.32 Chronic kidney disease, stage 3b (principal); I10 Essential (primary) hypertension | CPT/HCPCS: 99212 ==

== ENCOUNTER 2025-07-01 09:50 | Outpatient (AMB) | payer OTHER, SELFPAY ==
--- NOTE | 2025-07-01 09:57 | MHC.OFFVIS ---
Vital Signs 07/01/25 09:58 Height 5 ft 7 in Weight 190 lb BMI 29.8 BP 80/60 L Blood Pressure Location Lt brachial Position Sitting Pulse 83 Pulse Source Pulse Oximeter Pulse Oximetry (%) 97 Oxygen Delivery Method Room Air Intake Visit Reasons: 6 mo follow up Intake Note: Patient presents follow up NANO. No-show PSG, labs in chart Rail Project Engineer Required: Yes Rail Project Engineer Services: Rail Project Engineer Offered & Declined Allergies Seasonal Allergies Allergy (Unknown, Verified 07/01/25 10:08) Unknown Medication List - Last Reconciled 07/01/25 by DARINEL Castillo acetaminophen (Tylenol Extra Strength) 1,000 mg (2 x 500 mg) PO QID PRN albuterol sulfate 90 mcg/actuation 2 inhalations inhalation Q4-6H PRN aspirin 81 mg PO DAILY blood sugar diagnostic (FreeStyle Lite Strips) As directed four times a day cholecalciferol (vitamin D3) 1,250 mcg PO QWEEK 12 weeks digoxin 250 mcg PO DAILY doxycycline hyclate 100 mg PO BID empagliflozin (Jardiance) 25 mg PO DAILY fenofibrate 54 mg PO DAILY flash glucose scanning reader ([employer] Gar[place] 2 [place]) As directed flash glucose sensor (FreeStyle Garrick 2 Sensor kit) As directed every 2 weeks furosemide 40 mg PO DAILY glyburide 10 mg (2 x 5 mg) PO BIDWM hydroxyzine pamoate 50 mg PO BEDTIME PRN insulin aspart U-100 See Protocol sliding scale doses subcut TIDAC insulin glargine 40 units subcut BEDTIME ivabradine (Corlanor) 7.5 mg PO BID lancets (TRUEplus Lancets) Four times a day metformin 500 mg PO BID metoprolol succinate ER 25 mg PO DAILY mirtazapine 45 mg PO BEDTIME nebulizers (AeroEclipse II Nebulizer) As directed omega 3-yiv-suw-fish oil 300 mg (120 mg- 180mg)-1,000 mg 1 cap PO TID omeprazole 40 mg PO DAILY@0630 pen needle, diabetic (Pentips Pen Needle) As directed prednisone 20 mg orally; 3 tabs daily for 3 days, 2 tabs daily for 3 days, 1 tab daily for 3 days sacubitril-valsartan 24-26 mg (Entresto) 1 tab See Protocol PO BID semaglutide (Ozempic) 0.5 mg subcut WE sertraline 200 mg PO DAILY HPI Comments Details: 54-year-old male patient presenting for follow-up of sleep apnea, who is accompanied by his . 02/24/2025, In-lab PSG: ?AHI 24 per hour, REM AHI 44 per hour, O2 naeem 76%, with SpO2 under 88% times 65 minutes, and average SpO2 91%.? PLM S 36 per hour, PLMS arousal index 14 per hour. 04/17/2025 in-lab PAP titration PSG:? Patient is breathing and oxygenation stabilized on CPAP 11 cm H2O, on CPAP 11 cm H2O there was a notable decrease in periodic limb movement of sleep. Since the last visit, ?Labs were reassuring, other than a low vitamin-D level, which has been repleted with prescribed vitamin-D supplement. He has not yet received the new CPAP machine, however he is interested in retrying PAP therapy. His notes, that he continues to experience snoring, frequent limb movements and restless sleep, and leg cramps. [facility] Medical History ICD (implantable cardioverter-defibrillator) lead failure Biventricular ICD (implantable cardioverter-defibrillator) in place Nonischemic cardiomyopathy GERD (gastroesophageal reflux disease) Asthma NANO (obstructive sleep apnea) Obesity due to excess calories HLD (hyperlipidemia) Type 2 diabetes mellitus with chronic kidney disease Heart failure with reduced ejection fraction Implantable cardioverter-defibrillator lead failure High cholesterol Diabetes HTN (hypertension) Pacemaker Surgical History S/P ICD (internal cardiac defibrillator) procedure History of tonsillectomy Hx of cardiac cath Hx of transesophageal echocardiography (DAWN) for monitoring History of permanent cardiac pacemaker placement (~2008) History of circumcision Family History Father HTN (hypertension) Diabetes CVD (cardiovascular disease) Hypercholesterolemia Mother Hypercholesterolemia HTN (hypertension) Diabetes Social History Household Members: Spouse Household Members Other:: SO:Thu Housing: Apartment Do you presently have visiting nurse or other home services: No Alcohol intake: current Alcohol intake frequency: 3 or more drinks per day Patient Tobacco Use Status: Never used Tobacco Tobacco use type: Cigarette service: No Physical Exam Vital Signs: Last Vital Signs Pulse 83 07/01/25 09:58 BP 80/60 L 07/01/25 09:58 Pulse Ox 97 07/01/25 09:58 Oxygen Delivery Method Room Air 07/01/25 09:58 BMI result Body Mass Index 29.8 Const General: no acute distress Orientation/consciousness: patient oriented x3 Resp Effort & Inspection: able to speak in complete sentences Neuro Other: Bilateral lower extremity muscle strength 5/5. Bilateral lower extremity light touch sensation intact General: patient oriented x3 Deep tendon reflexes (DTR's): Right patellar reflex intensity grade: 1+ and Left patellar reflex intensity grade: 1+ Psych Mental Status: mental status grossly normal Speech and movement: Clear speech present Attitude: cooperative Assessment & Plan Assessment & Plan (1) NANO (obstructive sleep apnea): Code(s): G47.33 - Obstructive sleep apnea (adult) (pediatric) Category: Medical (2) Muscle cramps: Code(s): R25.2 - Cramp and spasm Category: Medical (3) Restless legs syndrome (RLS): Code(s): G25.81 - Restless legs syndrome Category: Medical Plan Reviewed interval in-lab PSG and PAP titration study results, which were consistent with moderate to severe obstructive sleep apnea with frequent periodic limb movements of sleep. Patient advised to start CPAP 11 cm H2O nightly greater than 4 hours. We will check on status of previously sent CPAP order Sleep with head elevated when using CPAP, such as with a sleep apnea wedge pillow Clean and change PAP supplies routinely, including filters, masks, tubing, and water reservoir. Use distilled water in PAP water reservoir. For vitamin-D deficiency: Hold vitamin-D supplement for now Recheck vitamin-D level before follow-up appointment For periodic limb movements of sleep: Start magnesium 400 mg daily at bedtime Will follow-up upon review of above and patient to follow-up in clinic in 6 months or sooner prn. Orders: Orders Vitamin D 25-OH (D2 and D3) 3 Months E55.9 - Vitamin D deficiency, unspecified Medications: New magnesium oxide may hold for loose stools 400 mg PO BEDTIME 90 tabs 3RF 90 days Coding Level of Care Code Est Pt Level 3 (78832) Diagnoses NANO (obstructive sleep apnea) G47.33 Muscle cramps R25.2 Restless legs syndrome (RLS) G25.81
[2025-07-01 09:58] VITALS: BP 80/60; PULSE 83; O2SAT 97; BMI 29.8
--- OUTSIDE RECORDS SUMMARY | 2025-07-01 10:37 | XMS_ITS | Encounter Summary ---
Author Organization [employer] Address [address] [place] [address] Care Team Providers Care Enamel Burner Name Role Phone Tor Crews MD Primary Care Provide r Encounter Details Date Type Department Care Team (Latest Contact Info) Description 04/26/2021 Abstract [facility] CONVERSIONS Dental, Provider, DDS Social [...] Care Team (Late st Contact Info) Description 09/01/2025 2:15 PM EST Office Visit [facility] MEDICINE [address] [place] [address] Tor Crews MD [address] [place] [address] 09/14/2025 9:00 AM EST Office Visit [facility] OPTOMETRY [address] [place] [address] Nohemi Canseco, OD [address] [place] [address] documented as of this encounter Visit Diagnoses Not on filedocumented in this encounter Care Teams Enamel Burner Relationship Specialty Start Date End Date Tor Crews MD [address] [place] [address] PCP - General Internal Medicine 07/21/14 documented as of this encounter
--- OUTSIDE RECORDS SUMMARY | 2025-07-01 10:37 | XMS_ITS | Encounter Summary ---
Author Organization [employer] Address [address] [place] [address] Care Team Providers Care Mixer Lever Operator Name Role Phone Tor Crews MD Primary Care Provide r Encounter Details Date Type Department Care Team ([facility] st Contact Info) Description 01/19/2025 Telephone [facility] MEDICINE [address] [place], [place] [phone] Tor Crews MD [address] [place], [place] [phone] Social History Tobacco Use Types Packs/Day Years [...] Description 09/01/2025 2:15 PM EST Office Visit [facility] MEDICINE [address] [place] [address] Tor Crews MD [address] [place] [address] 09/14/2025 9:00 AM EST Office Visit [facility] OPTOMETRY [address] [place] [address] Ajith, Nohemi, OD [address] [place] [address] documented as of this encounter Visit Diagnoses Not on filedocumented in this encounter Additional Health Concerns Assessment Noted Time PHQ-9 Depression Total Score: 4 03/04/20 23 2:58 PM EDT documented as of this encounter Care Teams Mixer Lever Operator Relationship Specialty Start Date End Date Tor Crews MD [address] [place] [address] PCP - General Internal Medicine 07/21/14 documented as of this encounter
--- OUTSIDE RECORDS SUMMARY | 2025-07-01 10:37 | XMS_ITS | Clinical Summary ---
Author Organization [address] [place] [address] Address [address] [place] [address] Phone Care Team Providers Care Faculty Head Name Role Phone Tor Villela MD Primary Care Provi pepe Allergies No known active allergies Medications No known medications Encounters Date Type Department Care Team Description 04/07/2025 10:30 AM EDT Office Visit [facility] [address] [phone] Tod Little DPM Metatarsalgia of [...] 07/18/2025 9:15 AM EDT Office Visit [facility] [address] [phone] Tod Little DPM [address] [address] Health Maintenance Due Date Last Done Comments Diabetes: Annual Foot Exam 1981 Diabetes: Annual Retina Eye Exam 1981 Hepatitis B Vaccines (2 of 3 - 19+ 3-dose series) 10/19/2024 09/21/2024 Depression Screening 10/27/2024 Cholesterol Screening (Lipid Panel) 11/26/2024 Colorectal Cancer Screening: Colonoscopy 11/26/2024 HIV Screening 11/26/2024 Hepatitis C Screening 11/26/2024 Medicare Annual Wellness Visit 11/26/2024 Social Influencers of Health Screening 11/26/2024 Diabetes: Annual Urine Albumin-Creatinine Ratio (uACR) 02/01/2025 Diabetes: Blood Sugar Control Test (HGBA1C) 06/06/2025 12/07/2024, 07/01/2024 COVID-19 Vaccine ( season) 2025 11/20/2021, 01/10/2021, 12/20/2020 Influenza Vaccine (#1) 2025 , 08/21/2023, 10/26/2015, [...] Last 3 Months Insurance MEDICAID - [place] [facility] MEDICARE Member Subscriber Plan / Payer (Ef fective 2019-Present) Name:CARMINA GODINEZ Relation to Subscriber:Self Name:Godinez Carmina Payer ID:[id number] Group ID:[id number] Type:Not on file Address: [address] [place] [address] Care Teams Faculty Head Relationship Specialty Start Date End Date Tor Villela MD [address] [place] [address] [place] [address] PCP - General 07/29/24
--- OUTSIDE RECORDS SUMMARY | 2025-07-01 10:37 | XMS_ITS | Patient Health Record ---
Author Organization [facility] Address [address] [place] [address] Care Team Providers Care Ux Engineer Name Role Phone Megan Bañuelos MD, Tor Primary Care Provide r Unavailable Juan M Morel Unavailable [phone] Allergies No Known Allergies Reason For Referral [...] Problem Status W/U Status Risk Notes Problem [id number] Encounter for screening for malignant neoplasm of colon (Z12.11) Active confirmed Problem Gastritis (7522482) Gastritis (K29.70) Active confirmed Problem Esophageal reflux finding (428177228) Gastroesophageal reflux (K21.9) Active confirmed Problem Diverticulosis of colon (558728043) Diverticulosis of colon (K57.30) Active confirmed Problem 680892126 Gastroesophageal reflux disease, unspecified whether esophagitis present (K21.9) Active confirmed Plan Of Treatment Pending Test Test Name Order Date Pathology 01/25/2022 Future Test Test Name Order Date UPPER GI ENDOSCOPY 10/09/2021 COLONOSCOPY 10/09/2021 Insurance Providers Payer Name Payer Address Payer Phone Subscriber Number Group Number Insured Name Patient Relationship to Insured Coverage Start Date Coverage End Date [facility] [address] [place] [address] [id number] CARMINA LOMAX Self - patient is the insured Medical (General) History Medical History History ICD Code GERD IDDM Hypertension Nonischemic cardiomyopathy-Johnny Nielson---seen at [facility] in [place] for ? cardiac transplant, but not on active list Sleep apnea- cpap machine Depression CHF Hyperlipidemia CKD stage 3 Asthma Pacemaker Denies [place],CVA Surgical History Surgery Date(Month/Year) Pacemaker 2008
--- OUTSIDE RECORDS SUMMARY | 2025-07-01 10:37 | XMS_ITS | Clinical Summary ---
Author Organization [employer] Address [address] [place] [address] Care Team Providers Care Glass Cylinder Flanger Name Role Phone Tor Crews MD Primary [...] 2 diabetes mellitus without complication, unspecified whether terminal supervisor insulin use (CMS/HCC) take 1 tablet by oral route every day in the morning 90 tablet 1 023 Active atorvastatin (Lipitor) 40 MG tablet TAKE 1 TABLET BY MOUTH AT BEDTIME 90 tablet 3 023 Active Alcohol Swabs (Alcohol Prep) 70 % pads USE TWICE DAILY 100 each 11 023 Active digoxin (Lanoxin) 250 MCG tab;et Take 250 mcg by mouth in the morning. 024 Active metoprolol succinate XL (Toprol-XL) 25 MG 24 hr tablet Take 25 mg by mouth Once per day. 1/2 tab daily Active furosemide (Lasix) 40 MG tablet Take 40 mg by mouth in the morning. 024 Active FREESTYLE LITE test stripIndications: Type 2 diabetes mellitus with stage 3b chronic kidney disease, with long-term current use of insulin ([facility]) Use to test blood sugar 3 times daily 100 each 12 024 2024 Active Blood Glucose Monitoring Suppl (FreeStyle [place] Lite) w/Device kitIndications:Ty pe 2 diabetes mellitus with stage 3b chronic kidney disease, with long-term current use of insulin ([facility]) Use to test blood sugar 3 times daily 1 kit 024 Active predniSONE (Deltasone) 20 MG tabletIndications :Viral [...] for wheezing. 75 mL 2 024 Active Entresto 24-26 MG tablet Take 1 tablet by mouth 2 times daily. Active triamcinolone (Kenalog) 0.1 % cream Apply topically if needed in the morning and at bedtime (affected area). 30 g 2 025 Active omega-3 (Fish Oil) 1000 MG capsuleIndication s:Mixed hyperlipidemia TAKE 1 CAPSULE BY MOUTH THREE TIMES DAILY 90 capsule 5 025 Active amoxicillin (Amoxil) 500 MG capsule Take 4 capsules of amoxicillin 500 mg 1 hour prior dental procedure 12 capsule 025 Active semaglutide (Ozempic) 2 MG/1.5ML solution pen-injectorIndic ations:Type 2 diabetes mellitus with stage 3b chronic kidney disease, with long-term current use of insulin ([facility]) Inject 2 mg under the skin 1 (one) time per week. 2 each 6 025 Active TRUEplus Lancets 33G miscIndications:T ype 2 diabetes mellitus with stage 3b chronic kidney disease, with long-term current use of insulin ([facility]) USE DIRECTED TO TEST BLOOD SUGAR THREE TIMES DAILY 100 each 11 025 Active Pentips Generic Pen [place] 32G X 4 MM misc USE DIRECTED WITH novolog 100 each 5 025 Active UltiCare Insulin Syringe 30G X 1/2 0.5 ML misc USE ONCE DAILY DIRECTED 90 each 3 025 Active spironolactone (Aldactone) 25 MG tablet TAKE 1/2 TABLET BY MOUTH EVERY MORNING 45 tablet 3 025 Active loperamide (Imodium) 2 MG capsule PLEASE SEE ATTACHED FOR DETAILED DIRECTIONS 025 Active cholecalciferol (Vitamin D-3) 1.25 MG (59697 UT) capsule Take 1 capsule by mouth every 7 (seven) days. 025 Active Ozempic, 2 MG/DOSE, 8 MG/3ML solution pen-injector 025 Active azithromycin (Zithromax) 250 MG tablet TAKE 2 TABLETS BY MOUTH TODAY, THEN TAKE 1 TABLET DAILY FOR 4 DAYS DIRECTED 024 Active glyBURIDE (Diabeta) 5 MG tabletIndications :Type 2 diabetes mellitus with stage 3b chronic kidney disease, with long-term current use of insulin ([facility]) TAKE 1 TABLET BY MOUTH WITH BREAKFAST 30 tablet 2 025 Active NovoLOG FLEXPEN 100 UNIT/ML penIndications:Ty pe 2 diabetes mellitus without complication, with long-term current use of insulin ([facility]) INJECT PER SLIDING SCALE FOR BLOOD SUGAR < 150 = no USE, 151-200 = 3 UNITS, 201-250 = 5 UNITS, 251-300 = 8 UNITS, 301-350 = 10 UNITS, 351-400 = 12 UNITS, > 400 = 15 UNITS AND CALL DOCTOR 15 mL 3 025 Active Aspirin Low Dose 81 MG EC tabletIndications :Cardiomyopathy, unspecified type ([facility]) TAKE 1 TABLET BY MOUTH EVERY EVENING 90 tablet 3 025 Active Lantus 100 UNIT/ML injectionIndicati ons:Type 2 diabetes mellitus without complication, with long-term current use of insulin ([facility]) INJECT 46 UNITS SUBCUTANEOUSLY ONCE DAILY AT BEDTIME 15 mL 3 025 Active omeprazole (PriLOSEC) [address] capsuleIndication s:Gastroesophagea l reflux disease without esophagitis TAKE 1 CAPSULE BY MOUTH EVERY DAY BEFORE MEALS 90 capsule 2 025 Active fluticasone (Flonase) 50 MCG/ACT nasal sprayIndications: Seasonal allergies INSTILL 2 SPRAYS IN EACH NOSTRIL ONCE DAILY 16 g 3 025 Active fluticasone (Flonase) 50 MCG/ACT nasal sprayIndications: Seasonal allergies INSTILL 2 SPRAYS IN EACH NOSTRIL ONCE DAILY 16 g 3 025 2024 Discontinued Active Problems Problem Noted Date Diagnosed Date Hospital discharge follow-up 11/18/2024 Assessment & Plan (11/18/2024 1:37 PM EST): Patient is here for a HDF He was admitted to [facility] from 10/21-10/25/2024 After [...] See image in chart. -Cleaned and used [place] cary to close laceration. -ER precautions discussed. [...] a HDF after a recent admission to [facility] for a syncopal [...] Carvedilol, Enteresto and Spironoloactone. Followed by electrical electronics technician who recommended to keep all his medications [...] systolic heart failure 07/31/2017 Assessment & Plan (05/17/2025 11:51 AM EDT): Patient is here for a f/u He has non-ischemic cardiomyopathy diagnosed in 2008 (etiology ? NANO ? ETOH relate ? Pt gives a Hx of over 20 years of very heavy drinking. Basic blood work to r/o other etiologies: TSH 06/09/2013 was wnl, , Lyme titers were negative, HIV (neg 12/2012 at [facility]) , SAMEER (neg 01/03/2013 at [facility] ) , ADRIÁN level was normal. Pt is s/p ICD placement in 2008 ([employer] [employer]) Last cardiology note 03/14/2025 recommended to Continue current neurohormonal modulation with Entresto, Daily weight monitoring and avoidance of salt loading . Continue aggressive blood pressure control. Encouraged to continue to participate in physical activity as tolerated and participate in weight loss program. He has done extremely well with medical management despite no ALMOND SORTER. He was advised to continue to follow at [facility] for heart transplant evaluation.on annual basis. Had stress test at [facility] 09/14/[address] Rich ECHO 08/05/2024 showed a normal EF improved from previous one. Assessment & Plan (12/07/2024 11:25 AM EST): Patient is here for a f/u He has non-ischemic cardiomyopathy diagnosed in 2008 (etiology ? NANO ? ETOH relate ? Pt gives a Hx of over 20 years of very heavy drinking. Basic blood work to r/o other etiologies: TSH 06/09/2013 was wnl, , Lyme titers were negative, HIV (neg 12/2012 at [facility]) , SAMEER (neg 01/03/2013 at [facility] ) , ADRIÁN level was normal. Pt is s/p ICD placement in 2008 ([place] [employer]) Follows at the HF clinic , last seen 07/2022 Dr. Nielson recommended to Continue current neurohormonal modulation with Entresto, Daily weight monitoring and avoidance of salt loading . Continue aggressive blood pressure control. Encouraged to continue to participate in physical activity as tolerated and participate in weight loss program. He has done extremely well with medical management despite no ALMOND SORTER. He was advised to continue to follow at [facility] for heart transplant evaluation.on annual basis. Last seen 07/14/2024 He was last seen by Dr Nielson 12/01/2024 He is on: Toprol X: 12.5 mg One tablet Daily Entresto 24-26 mg BID And Lasix 40 mg once Daily Had stress test at [facility] 09/14/[address] Layla VILLASENOR 08/05/2024 [...] titers were negative, HIV (neg 12/2012 at [facility]) , SAMEER (neg 01/03/2013 at [facility] ) , ADRIÁN level was normal. Pt is s/p ICD placement in 2008 ([place] [employer]) Follows at the HF clinic , last seen 07/2022 Dr. Nielson recommended to Continue current neurohormonal modulation with Entresto, Daily weight monitoring and avoidance of salt loading . Continue aggressive blood pressure control. Encouraged to continue to participate in physical activity as tolerated and participate in weight loss program. He has done extremely well with medical management despite no ALMOND SORTER. He was advised to continue to follow at [facility] for heart transplant evaluation.on annual basis. Last seen 07/14/2024 He was last seen by Dr Nielson 02/25/2024 He is on: Toprol X: 12.5 mg One tablet Daily Entresto 24-26 mg BID And Lasix 40 mg once Daily Had stress test at [facility] 09/14/[address] Layla VILLASENOR 08/05/2024 [...] titers were negative, HIV (neg 12/2012 at [facility]) , SAMEER (neg 01/03/2013 at [facility] ) , ADRIÁN level was normal. Pt is s/p ICD placement in 2008 ([employer] [employer]) Follows at the HF clinic , last [...] extremely well with medical management despite no ALMOND SORTER. He was advised to continue to follow at [facility] for heart transplant evaluation.on annual basis. Last seen 07/14/2024 He was last seen by Dr Nielson 02/25/2024 His Carvedilol was replaced with Toprol X: 12.5 mg One tablet Daily His Entresto was lowered to 24-26 mg BID His Lasix was lowered to 40 mg once Daily by Dr Rich at [facility] Assessment & Plan (03/23/2024 11:09 AM EDT): Patient is here for a f/u He has non-ischemic cardiomyopathy diagnosed in 2008 (etiology ? NANO ? ETOH relate ? Pt gives a Hx of over 20 years of very heavy drinking. Basic blood work to r/o other etiologies: TSH 06/09/2013 was wnl, , Lyme titers were negative, HIV (neg 12/2012 at [facility]) , SAMEER (neg 01/03/2013 at [facility] ) , ADRIÁN level was normal. Pt is s/p ICD placement in 2008 ([employer] [employer]) Follows at the HF clinic , [...] extremely well with medical management despite no ALMOND SORTER. He was advised to continue to follow with Dr Rivas at [facility] for heart transplant [...] titers were negative, HIV (neg 12/2012 at [facility]) , SAMEER (neg 01/03/2013 at [facility] ) , ADRIÁN level was normal. Pt is s/p ICD placement in 2008 ([employer]) Follows at the HF clinic , last [...] extremely well with medical management despite no ALMOND SORTER. Dr Nielson recommended Follow-up echocardiogram in 1 month's time. He was advised to continue to follow with Dr Rivas at [facility] for heart transplant [...] titers were negative, HIV (neg 12/2012 at [facility]) , SAMEER (neg 01/03/2013 at [facility] ) , ADRIÁN level was normal. Pt is s/p ICD placement in 2008 ([employer] [employer]) Follows at the HF clinic , last seen 07/2022 Heart failure with reduced ejection fraction with much improved LV ejection fraction 40-45% with much improved symptoms with NYHA class 1 symptoms. Last seen by Dr. Nielson 05/12/2023 He was advised to continue to follow with Dr Rivas at [facility] for heart transplant evaluation.on annual basis. Dr. Neilson recommended to Continue current neurohormonal modulation with Entresto, carvedilol, Jardiance, spironolactone and Corlanor therapy. Continue current diuretic regimen. Daily weight monitoring and avoidance of salt loading . Continue aggressive blood pressure control. Encouraged to continue to participate in physical activity as tolerated and participate in weight loss program. He has done extremely well with medical management despite no ALMOND SORTER. Dr Nielson recommended Follow-up echocardiogram in 1 [...] titers were negative, HIV (neg 12/2012 at [facility]) , SAMEER (neg 01/03/2013 at [facility] ) , ADRIÁN level was normal. last EF 20-25% 2017 Pt is s/p ICD placement in 2008 ([employer] [employer]) Follows at the HF clinic , last seen 07/2022 Pt tells me he has a f/u with Dr. Nielson as well He was advised to continue to keep appointment with Dr Rivas at [facility] for heart transplant evaluation. CKD stage 3 secondary to diabetes 12/26/2015 Assessment & Plan (12/07/2024 11:25 AM EST): Under the care of Nephrology, last seen 12/01/2024 Dr. Bonilla his tar boiler Lab Results Component Value Date GLUCOSE 340 (H) 10/16/2024 NA 140 11/23/2024 K 4.3 11/23/2024 CO2 24 11/23/2024 CL 110 (H) 11/23/2024 BUN 17 (H) 11/23/2024 CREATININE 1.56 (H) 11/23/2024 Assessment & Plan (11/18/2024 1:39 PM EST): Under the care of Nephrology, last seen 09/03/2024 Dr. Bonilla his tar [employer] Lab Results Component Value Date GLUCOSE 340 (H) 10/16/2024 NA 137 10/16/2024 K 3.8 10/16/2024 CO2 20 (L) 10/16/2024 CL 107 10/16/2024 BUN 30 (H) 10/16/2024 CREATININE 1.65 (H) 10/16/2024 Will repeat Assessment & Plan (09/21/2024 12:58 PM EST): Under the care of Nephrology, last seen 09/03/2024 Dr. Bonilla his tar boiler Assessment & Plan (07/27/2024 11:47 AM EDT): Under the care of Nephrology, last seen 03/05/2024 Dr. Bonilla his tar boiler Assessment & Plan (03/23/2024 11:01 AM EDT): Under the care of Nephrology, last seen 03/05/2024 Dr. Bonilla his tar boiler Assessment & Plan (11/25/2023 12:08 PM EST): Under the care of Nephrology, last seen 07/16/2023. Dr. Chad campbell tar boiler Assessment & Plan (06/10/2023 9:25 AM EDT): Under the care of Nephrology, last seen 12/2022. I sent a message via [employer] to Dr. Bonilla his tar boiler letting him know I am starting patient [...] low fat low cholesterol diet, Referred to Rn Angiography. DC Atorvastatin . Start Fenofibrate Follow up [...] use of insulin 04/13/2014 Assessment & Plan (05/17/2025 11:58 AM EDT): Pt here for a f/u Dm improving Hgb A1c 05/17/2025: 8.4 from 8.7 from 9.2 from 9.7 Microalbumin level 12/25/2021 was 5 Eye exam: 07/02/2024 Dr Canseco Currently on a regimen of: Lantus 46 units sc qpm, Humalog sliding scale, Glyburide 5 mg po daily, Jardiance 25 mg, Ozempic 2 mg once a week, Metformin 500 mg po BID ( was restarted by [employer] in [place]). He stopped taking the Trulicity due to c/o nausea and vomiting. Plan: Continue current regimen 3 month follow up Foot check risk of zero Pt reports compliance with Asa 81 mg po daily Pt advised to: adhere to diabetic diet check your blood sugars regularly check your feet on a daily basis Assessment & Plan (02/10/2025 1:19 PM EDT): [...] mg po BID ( was restarted by [employer] in [place]). He stopped taking the Trulicity due to [...] a week His Metformin was restarted by [employer] [facility] [place] 500 mg po BID once a day [...] a week His Metformin was restarted by [employer] in [place] 500 mg po BID once a day [...] 25 mg, His Metformin was restarted by [employer] [facility] [place] 500 mg po BID once a day [...] 25 mg, His Metformin was restarted by [employer] [facility] [place] 500 mg po BID once a day [...] 1.5 mg His Metformin was restarted by [employer] in [place] 500 mg po BID Plan: No changes [...] a psychotherapist her name is Aj at [facility] . He used to see Dr. Colon but stopped due to lack of transportation His biggest complaint was lack of sleep. I have agreed to prescribe trazodone 100 mg po q hs prn. Obstructive sleep apnea syndrome 01/21/2013 Assessment & Plan (03/23/2024 10:59 AM EDT): Under the care of social security specialist (Dr Rucker). [facility] 01/27/2024 Awaiting Cpap Assessment & Plan (11/25/2023 11:58 AM EST): Sleep study done on 03/08/2013 confirmed the diagnosis of moderately severe NANO. Pt reported compliance with Cpap machine And is now under the care of social security specialist (Dr Rucker). Awaiting Cpap Assessment & Plan (05/13/2023 8:57 AM EDT): Sleep study done on 03/08/2013 confirmed the diagnosis of moderately severe NANO. Pt reported compliance with Cpap machine And is now under the care of social security specialist (Dr Rucker). He told me his Cpap was no longer working and needed a new one He was referred back for Sleep study, to sleep clinic. Appointment scheduled for 05/16/2023 Assessment & Plan (03/04/2023 3:01 PM EDT): Sleep study done on 03/08/2013 confirmed the diagnosis of moderately severe NANO. Pt reported compliance with Cpap machine And is now under the care of social security specialist (Dr Rucker). He tells me his Cpap is no longer working and needs a new one Plan: Sleep study, will refer to sleep clinic Cardiomyopathy 01/11/2013 Gastroesophageal reflux disease 01/11/2013 Resolved Problems Problem Noted Date Diagnosed Date Resolved Date Ingrowing nail, right great toe 10/06/2017 11/25/2023 Assessment & Plan (07/15/2023 3:25 PM EDT): Pt tells me the technical implementation lead requested authorization from PCP to take care of his ingrown toe nail Plan: Podiatry referral Congestive heart failure 01/21/2013 Encounters Date Type Department Care Team Description 07/01/2025 Refill [facility] [address] [place] [address] Tor Crews MD Type 2 diabetes mellitus with stage 3b chronic kidney disease, with long-term current use of insulin ([facility]) 06/24/2025 Telephone [facility] [address] [facility] [place] [address] Tor Crews MD July06/20/2025 Telephone [facility] [address] [place] [address] Gloria Mcdonnell, MAN[place]OR Paperwork/Forms 06/17/2025 Orders Only GENERIC EXTERNAL DATA DEPARTMENT Provider, Generic External Data 06/12/2025 Refill [facility] [address] [place] [address] Tor Crews MD Seasonal allergies 06/01/2025 10:00 AM EDT Office Visit [facility] [address] [facility] [place] [address] Juliann Johnson Encounter for dental examination (Primary Dx); Teeth missing; Dental plaque 05/18/2025 Telephone [facility] [address] [facility] [place] [address] Tor Crews MD Durable Medical Equipment 05/17/2025 11:30 AM EDT Office Visit [facility] [address] [facility] [place] [address] Tor Crews MD Type 2 diabetes mellitus with stage 3b chronic kidney disease, with long-term current use of insulin ([facility]) (Primary Dx); Chronic systolic heart failure ([facility]) 05/17/2025 Telephone [facility] [address] [facility] [place] [address] Maria Luisa Cabezas RN Transportation/CCA 05/17/2025 Travel 05/16/2025 Telephone [facility] [address] [facility] [place] [address] Tor Crews MD Chart Prep 05/11/2025 Refill [facility] [address] [facility] [place] [address] Tor Crews MD Gastroesophageal reflux disease without esophagitis 04/27/2025 Refill [facility] [address] [facility] [place] [address] Tor Crews MD Type 2 diabetes mellitus without complication, with long-term current use of insulin ([facility]) 04/12/2025 Refill [facility] [address] [facility] [place] [address] Tor Crews MD Cardiomyopathy, unspecified type ([facility]) 04/04/2025 11:00 AM EDT Office Visit [facility] [address] [facility] [place] [address] Kristen Perez Dental calculus (Primary Dx); Dental plaque from Last 3 Months Immunizations Immunization Administration [...] Sign Reading Time Taken Comments Blood Pressure 126/76 06/01/2025 10:10 AM EDT Pulse 67 06/01/2025 10:10 AM EDT Temperature 36.3 C (97.3 F) 05/17/2025 11:50 AM EDT Respiratory Rate 19 05/17/2025 11:50 AM EDT Oxygen Saturation 97% 01/01/2025 8:51 AM EST Inhaled Oxygen Concentration - - Weight 90.4 kg (199 lb 4 oz) 05/17/2025 11:50 AM EDT Height 170.2 cm (5' 7 ) 05/17/2025 11:50 AM EDT Body Mass Index 31.21 05/17/2025 11:50 AM EDT Plan of Treatment Upcoming Encounters Date Type Department Care Team (Late st Contact Info) Description 09/01/2025 2:15 PM EST Office Visit [facility] [address] [place] [address] Tor Crews MD [address] [place] [address] 09/14/2025 9:00 AM EST Office Visit [facility] [address] [place] [address] Nohemi Canseco, OD [address] [place] [address] Health Maintenance Due Date Last Done Comments CT Colonography 1971 FIT DNA/Cologuard 1971 FIT 1971 FOBT 1971 HIV Screening 1971 Sigmoidoscopy 1971 Diabetes: Foot Exam 1981 Hepatitis C Screening 1989 Lipid Panel 09/09/2024 09/09/2023, 08/27, 06/04/2023, Additional history exists Hepatitis B Vaccines (2 of 3 - 19+ 3-dose series) 10/19/2024 09/21/2024 Depression Screening 03/23/2025 03/23/2024, 03/04/20 23 SDOH Screening 03/23/2025 03/23/2024 COVID-19 Vaccine ( season) 2025 11/20/2021, 01/10/2021, 12/20/2020 Influenza Vaccine (#1) 2025 , 08/21/2023, 10/26/2015, Additional history exists Diabetes: Hemoglobin A1C 08/17/2025 025, 12/07/2024, 09/21/2024, Additional history exists Dental X-Ray: Bitewings 11/30/2025 11/29/19 25, 09/20/2024, 04/18/2021 Dental Oral Exam 12/03/2025 06/01/2025, 12/2024, 04/18/2021 Dental Prophylaxis 12/03/2025 06/01/2025, 11/29/2024 Alcohol/Substance Use Screening 12/07/2025 12/07/2024 Disability Screening 02/10/2026 02/10/2025 Tobacco Screening 06/01/2026 06/01/2025 Eye Exam 07/02/2026 07/02/2024, 09/0 03/2024, 07/02/2024, Additional history exists Dental X-Ray: [...] Procedure Name Priority Date/Time Associated Diagnosis Comments CREATININE, SERUM Routine 06/17/2025 1:1 4 PM EDT UREA NITROGEN (BUN) Routine 06/17/2025 1 :14 PM EDT ELECTROLYTE PANEL Routine 06/17/2025 1:1 4 PM EDT PERIODIC ORAL EVALUATION - ESTABLISHED PATIENT Routine 06/01/2025 10:00 AM EDT Encounter for dental examination Teeth missing Dental plaque CASE PRESENTATION, DETAILED AND EXTENSIVE TREATMENT PLANNING Routine 06/01/2025 10:00 AM EDT ORAL HYGIENE INSTRUCTIONS Routine 06/01/2025 10:00 AM EDT PROPHYLAXIS - ADULT Routine 06/01/2025 1 0:00 AM EDT POCT GLYCATED HEMOGLOBIN, TOTAL Routine 05/17/2025 11:56 AM EDT Type 2 diabetes mellitus with stage 3b chronic kidney disease, with long-term current use of insulin ([facility]) POCT GLUCOSE Routine 05/17/2025 11:55 AM EDT Type 2 diabetes mellitus with stage 3b chronic kidney disease, with long-term current use of insulin ([facility]) ORAL HYGIENE INSTRUCTIONS Routine 04/04/2025 11:00 AM EDT Dental calculus Dental plaque CASE PRESENTATION, DETAILED AND EXTENSIVE TREATMENT PLANNING Routine 04/04/2025 11:00 AM EDT LR PERIODONTAL SCALING AND ROOT PLANING - 1 TO 3 TEETH PER QUADRANT Routine 04/04/2025 11:00 AM EDT Dental calculus Dental plaque UR PERIODONTAL SCALING AND ROOT PLANING - 1 TO 3 TEETH PER QUADRANT Routine 04/04/2025 11:00 AM EDT Dental calculus Dental plaque INTRAORAL - COMPLETE SERIES OF RADIOGRAPHIC IMAGES Routine 11/29/2024 10:00 AM EST LIPID PANEL WITH REFLEX TO DIRECT LDL Routine 09/09/2023 7:57 AM EST Hypertriglyceridemi a HM COLONOSCOPY Routine 01/25/2022 from Last 3 Months or Most Recently Relevant to Health Maintenance Results * (ABNORMAL) Creatinine, Serum (06/17/2025 1:14 PM EDT) Creatinine, Serum 1.75(H) 0.5 - 1.4 mg/dL [facility] Estimated Glomerular Filt Rate 41 [facility] Comment:Chronic Kidney Disea se: Estimated GFR < 60 mL/min/[id number] Kidney Disease: Estimated GFR < 15 mL/min/1.73m2 06/17/2025 1:14 PM EDT 06/17/2025 1:14 PM EDT Generic External Data Provider LAB BLOOD ORDERAB LES Final Result Performing Organization Address [facility] Hospital/[facility] Co de Phone Number [facility] [address] [place] [phone] * (ABNORMAL) BUN (Blood Urea Nitrogen) (06/17/2025 1:14 PM EDT) Urea Nitrogen (BUN) 23(H) 9 - 16 mg/dL [facility] 06/17/2025 1:14 PM EDT 06/17/2025 1:14 PM EDT Generic External Data Provider LAB BLOOD ORDERAB LES Final Result Performing Organization Address City/[facility] Co de Phone Number [facility] [address] [place] [phone] * Electrolyte Panel (06/17/2025 1:14 PM EDT) Sodium 140 135 - 145 mmol/L [facility] Potassium 3.9 3.3 - 5.1 mmol/L [facility] Chloride 104 96 - 108 mmol/L [facility] Carbon Dioxide 23 22 - 29 mmol/L [facility] Anion Gap 17 12 - 20 [facility] 06/17/2025 1:14 PM EDT 06/17/2025 1:14 PM EDT Generic External Data Provider LAB BLOOD ORDERAB LES Final Result [facility] [address] [place] [phone] * (ABNORMAL) POCT HGB A1C (05/17/2025 11:56 AM EDT) Hemoglobin A1C 8.4(A) 4.0 - 5.7 % QC Media Lot # [id number] Lot# Expiration Date Swab 05/17/2025 11:5 6 AM EDT Tor Bañuelos MD POINT OF CARE TEST EN TER/EDIT ORDERABLES Final Result * (ABNORMAL) POCT Glucose (05/17/2025 11:55 AM EDT) Glucose Blood, POC 248(A) 60 - 200 mg/dL QC Media Lot # [id number] Lot# Expiration Date Blood Capillary blood specimen / Unknown 05/17/2025 11:55 AM EDT Tor Bañuelos MD POINT OF CARE TEST EN TER/EDIT ORDERABLES Final Result * (ABNORMAL) Lipid Panel with Reflex to Direct LDL (09/09/2023 7:57 AM EST) Triglycerides 448(H) <150 mg/dL [facility] Comment:Desirable Triglyceri de: less than 150 mg/dLBorderline High Triglyceride 150-199 mg/dLHigh Triglyceride: 200-499 mg/dLVery High Triglyceride: greater than or equal to 5OO mg/dL Cholesterol 204(H) <200 mg/dL [facility] Comment:Desirable Cholestero l: less than 200 mg/dLBorderline High Cholesterol: 200-239 mg/dLHigh Cholesterol: greater than 239 mg/dL LDL Cholesterol Calculated TNP <100 mg/dL [facility] Comment:Unable to calculate the LDL. The formula of Friedwald,Shepherd, and Pearl is only valid if the triglycerides areless than 400 mg/dl. HDL Cholesterol 34(L) >40 mg/dL [facility] Comment:Desirable HDL: great er than 40 mg/dL Note: This HDL assay may give artificially low results in patients with liver disease. Blood 09/09/2023 7:57 AM EST 09/09/2023 7:57 AM EST Tor Bañuelos MD LAB BLOOD ORDERABLES Final Result [facility] [address] [place] [phone] * Colonoscopy (01/25/2022) Colonoscopy Normal Normal 01/25/2022 Narrative Radha Alves - 01/25/2022 2:56 PM EDT Recommended 10 year follow up ( see scanned notes) Historical Provider HEALTH MAINTENANCE Edited Result - Final from Last 3 Months or Most Recently Relevant to Health Maintenance Insurance [facility] ONE CARE < [address] [place] [id number] DENTAL - [facility] Care Teams Glass Cylinder Flanger Relationship Specialty Start Date End Date Tor Crews MD [address] [place] [address] PCP - General Internal Medicine 07/21/14
--- OUTSIDE RECORDS SUMMARY | 2025-07-01 10:37 | XMS_ITS | Encounter Summary ---
Author Organization [employer] Address [address] 7t [place] [address] Care Team Providers Care Bilingual Elementary School Teacher Name Role Phone Tor Crews MD Primary Care Provide r Encounter Details Date Type Department Care Team ([facility] st Contact Info) Description 10/15/2024 Orders Only [facility] MEDICINE 230 [place], [place] [phone] Arcelia Watkins ANP 230 [place], [place] [phone] Social History Tobacco Use Types Packs/Day Years [...] Description 09/01/2025 2:15 PM EST Office Visit [facility] MEDICINE [address] [place] [address] Tor Crews MD 230 [place] [address] 09/14/2025 9:00 AM EST Office Visit [facility] OPTOMETRY [address] [place], [place] [phone] Ajith, Nohemi, OD 230 [place] [address] documented as of this encounter Visit Diagnoses Not on filedocumented in this encounter Additional Health Concerns Assessment Noted Time PHQ-9 Depression Total Score: 4 03/04/20 23 2:58 PM EDT documented as of this encounter Care Teams Bilingual Elementary School Teacher Relationship Specialty Start Date End Date Tor Crews MD 230 [place] [address] PCP - General Internal Medicine 07/21/14 documented as of this encounter
--- OUTSIDE RECORDS SUMMARY | 2025-07-01 10:37 | XMS_ITS | Encounter Summary ---
Author Organization [employer] Address [address] 7t [place] [address] Care Team Providers Care Soap Drier Tender Name Role Phone Tor Crews MD Primary Care Provide r Reason for Visit * Reason Comments Med Refill Encounter Details Date Type Department Care Team ([facility] st Contact Info) Description 08/07/[address] [facility] MEDICINE 230 [place], [place] [phone] Tor Crews MD 230 [place], [place] [phone] Hypertriglyceridemia Social History Tobacco Use Types Packs/Day [...] Description 09/01/2025 2:15 PM EST Office Visit [facility] MEDICINE 230 [place] [address] Tor Crews MD 230 [place] [address] 09/14/2025 9:00 AM EST Office Visit [facility] OPTOMETRY [address] [place] [address] Ajith, Nohemi, OD 230 [place] [address] documented as of this encounter Visit Diagnoses Diagnosis Hypertriglyceridemia Pure hyperglyceridemia documented in this encounter Additional Health Concerns Assessment Noted Time PHQ-9 Depression Total Score: 4 03/04/20 23 2:58 PM EDT documented as of this encounter Care Teams Soap Drier Tender Relationship Specialty Start Date End Date Tor Crews MD 230 [place] [address] PCP - General Internal Medicine 07/21/14 documented as of this encounter
--- OUTSIDE RECORDS SUMMARY | 2025-07-01 10:37 | XMS_ITS | Encounter Summary ---
Author Organization [employer] Address [address] [facility] [address] 7t [place] [address] Care Team Providers Care Coffee Sampler Name Role Phone Tor Crews MD Primary Care Provide r Reason for Visit * Reason Comments Med Refill Encounter Details Date Type Department Care Team (Late st Contact Info) Description 12/19/[address] [facility] MED & PEDS [address] [place], [place] [phone] Sinai Sesay MD 230 [place] [address] Social History Tobacco Use Types Packs/Day Years [...] Description 09/01/2025 2:15 PM EST Office Visit [facility] MEDICINE 230 [place] [address] Tor Crews MD [address] [place] [address] 09/14/2025 9:00 AM EST Office Visit [facility] OPTOMETRY [address] [place] [address] Ajith, Nohemi, OD 230 [place] [address] documented as of this encounter Visit Diagnoses Not on filedocumented in this encounter Additional Health Concerns Assessment Noted Time PHQ-9 Depression Total Score: 4 03/04/20 23 2:58 PM EDT documented as of this encounter Care Teams Coffee Sampler Relationship Specialty Start Date End Date Tor Crews MD [address] [place] [address] PCP - General Internal Medicine 07/21/14 documented as of this encounter
--- OUTSIDE RECORDS SUMMARY | 2025-07-01 10:37 | XMS_ITS | Encounter Summary ---
Author Organization [employer] Address [address] [facility] 7t [place] [address] Care Team Providers Care Rope Coiling Machine Operator Name Role Phone Tor Crews MD Primary Care Provide r Reason for Visit * Reason Onset Date Comments Hospital Follow-up 10/26/2024 Encounter Details Date Type Department Care Team ([facility] st Contact Info) Description 10/26/2024 Telephone [facility] MEDICINE 230 [place], [place] [phone] Tor Crews MD 230 [place], [place] [phone] Hospital Follow-up Social History Tobacco Use Types [...] from pt requesting a HDF appt. Hospital: [facility] Date of admission: 10/20/2024 Discharge date: 10/25/2024 Diagnosed: Asthma *Send message to [place] Clinical Care Coordinators documented in this encounter Plan of Treatment Upcoming Encounters Date Type Department Care Team (Late st Contact Info) Description 09/01/2025 2:15 PM EST Office Visit [facility] MEDICINE 230 [place] [address] Tor Crews MD 230 [place] [address] 09/14/2025 9:00 AM EST Office Visit [facility] OPTOMETRY [address] [place] [address] Ajith, Nohemi, OD 230 [place] [address] documented as of this encounter Visit Diagnoses Not on filedocumented in this encounter Additional Health Concerns Assessment Noted Time PHQ-9 Depression Total Score: 4 03/04/20 23 2:58 PM EDT documented as of this encounter Care Teams Rope Coiling Machine Operator Relationship Specialty Start Date End Date Tor Crews MD [address] [place] [address] PCP - General Internal Medicine 07/21/14 documented as of this encounter
--- OUTSIDE RECORDS SUMMARY | 2025-07-01 10:37 | XMS_ITS | Encounter Summary ---
Author Organization [employer] Address [address] [facility] 7t [place] [address] Care Team Providers Care Career Based Intervention Coordinator Name Role Phone Tor Crews MD Primary Care Provide r Reason for Visit * Reason Comments Med Refill Encounter Details Date Type Department Care Team ([facility] st Contact Info) Description 11/18/2024 Refill [facility] MEDICINE 230 [place], [place] [phone] Tor Crews MD 230 [place], [place] [phone] Type 2 diabetes mellitus without complications (CMS/HCC) [...] Description 09/01/2025 2:15 PM EST Office Visit [facility] MEDICINE 230 [place] [address] Tor Crews MD 230 [place] [address] 09/14/2025 9:00 AM EST Office Visit [facility] OPTOMETRY [address] [place] [address] Ajith, Nohemi, OD 230 [place] [address] documented as of this encounter Visit Diagnoses Diagnosis Type 2 diabetes mellitus without complications (CMS/HCC) documented in this encounter Additional Health Concerns Assessment Noted Time PHQ-9 Depression Total Score: 4 03/04/20 23 2:58 PM EDT documented as of this encounter Care Teams Career Based Intervention Coordinator Relationship Specialty Start Date End Date Tor Crews MD [address] [place] [address] PCP - General Internal Medicine 07/21/14 documented as of this encounter
--- OUTSIDE RECORDS SUMMARY | 2025-07-01 10:37 | XMS_ITS | Encounter Summary ---
Author Organization [employer] Address [address] [facility] 7t [place] [address] Care Team Providers Care Production Cell Leader Name Role Phone Tor Crews MD Primary Care Provide r Encounter Details Date Type Department Care Team (Late st Contact Info) Description 10/30/2022 Orders Only [facility] CHC MED & PEDS 505 [place], [place] [phone] Mahsa Bustillos LPN Social History Tobacco Use [...] 2:15 PM EST Office Visit [facility] MEDICINE 230 [place] [address] Tor Crews MD 230 [place] [address] 09/14/2025 9:00 AM EST Office Visit [facility] OPTOMETRY [address] [place] [address] Nohemi Canseco OD 230 [place] [address] documented as of this encounter Visit Diagnoses Not on filedocumented in this encounter Care Teams Production Cell Leader Relationship Specialty Start Date End Date Tor Crews MD [address] [place] [address] PCP - General Internal Medicine 07/21/14 documented as of this encounter
--- OUTSIDE RECORDS SUMMARY | 2025-07-01 10:37 | XMS_ITS | Encounter Summary ---
Author Organization [employer] Address [address] [facility] 7t [place] [address] Care Team Providers Care Food Prep Worker Name Role Phone Tor Crews MD Primary Care Provide r Reason for Visit * Reason Comments Med Refill Encounter Details Date Type Department Care Team (Late st Contact Info) Description 05/23/2023 Refill [facility] MEDICINE 230 [place], [place] [phone] Tor Crews MD 230 [place], [place] [phone] Acute pain of right knee Social History [...] Department Care Team (Late Contact Info) Description 09/01/2025 2:15 PM EST Office Visit [facility] MEDICINE 230 [place], [place] [phone] Tor Crews MD 230 [place], [place] [phone] 09/14/2025 9:00 AM EST Office Visit [facility] OPTOMETRY [address] [place], [place] [phone] Nohemi Canseco, OD 230 [place] [address] documented as of this encounter Visit Diagnoses Diagnosis Acute pain of right knee documented in this encounter Additional Health Concerns Assessment Noted Time PHQ-9 Depression Total Score: 4 03/04/20 23 2:58 PM EDT documented as of this encounter Care Teams Food Prep Worker Relationship Specialty Start Date End Date Tor Crews MD 230 [place], [place] [phone] PCP - General Internal Medicine 07/21/14 documented as of this encounter
--- OUTSIDE RECORDS SUMMARY | 2025-07-01 10:38 | XMS_ITS | Encounter Summary ---
Author Organization [employer] Address [address] [facility] 7t [place] [address] Care Team Providers Care Cone Trucker Name Role Phone Tor Crews MD Primary Care Provide r Encounter Details Date Type Department Care Team (Late Contact Info) Description 11/28/2022 Abstract [facility] MEDICINE [address] [place] [address] [phone] Tor Crews MD 230 [place], [place] [phone] Social History Tobacco Use Types Packs/Day Years [...] PM EST Office Visit [facility] MEDICINE [address] [place] [address] [phone] Tor Crews MD 230 [place], [place] [phone] 09/14/2025 9:00 AM EST Office Visit [facility] OPTOMETRY [address] [place], [place] [phone] Nohemi Canseco, SIXTO 230 [place] [address] documented as of this encounter Visit Diagnoses Not on filedocumented in this encounter Care Teams Cone Trucker Relationship Specialty Start Date End Date Tor Crews MD 230 [place], [place] [phone] PCP - General Internal Medicine 07/21/14 documented as of this encounter
--- OUTSIDE RECORDS SUMMARY | 2025-07-01 10:38 | XMS_ITS | Encounter Summary ---
Author Organization [employer] Address [address] [facility] 7t [place] [address] Care Team Providers Care Um Rn Name Role Phone Tor Crews MD Primary Care Provide r Encounter Details Date Type Department Care Team (Late Contact Info) Description 02/27/2023 Abstract [facility] MEDICINE [address] [place] [address] [phone] Tor Crews MD 230 [place], [place] [phone] Social History Tobacco Use Types Packs/Day Years [...] Description 09/01/2025 2:15 PM EST Office Visit [facility] MEDICINE 230 [place], [place] [phone] Tor Crews MD 230 [place], [place] [phone] 09/14/2025 9:00 AM EST Office Visit [facility] OPTOMETRY [address] [place], [place] [phone] Nohemi Canseco, OD 230 [place] [address] documented as of this encounter Procedures Procedure Name Priority Date/Time Associated Diagnosis Comments COLONOSCOPY Routine 01/25/2022 documented in this encounter Results * Hm Colonoscopy (01/25/2022) Colonoscopy Normal Normal 01/25/2022 Narrative Radha Alves - 01/25/2022 2:56 PM EDT Recommended 10 year follow up ( see scanned notes) us Historical Provider [employer] [facility] Edited Result - Final documented in this encounter Visit Diagnoses Not on filedocumented in this encounter Care Teams Um Rn Relationship Specialty Start Date End Date Tor Crews MD 230 [place] [address] PCP - General Internal Medicine 07/21/14 documented as of this encounter
--- OUTSIDE RECORDS SUMMARY | 2025-07-01 10:38 | XMS_ITS | Encounter Summary ---
Author Organization [employer] Address [address] [facility] 7t [place] [address] Care Team Providers Care Planishing Hammer Operator Name Role Phone Tor Crews MD Primary Care Provide r Reason for Visit * Reason Comments Med Refill Encounter Details Date Type Department Care Team ([facility] st Contact Info) Description 03/17/2025 Refill [facility] MEDICINE 230 [place], [place] [phone] Sinai Sesay MD 230 [place], [place] [phone] Social History Tobacco Use Types Packs/Day Years [...] [facility] 230 [place] [address] Tor Crews MD 230 [place] [address] 09/14/2025 9:00 AM EST Office Visit [facility] OPTOMETRY [address] [place] [address] Ajith, Nohemi, OD 230 [place] [address] documented as of this encounter Visit Diagnoses Not on filedocumented in this encounter Additional Health Concerns Assessment Noted Time PHQ-9 Depression Total Score: 4 03/04/20 23 2:58 PM EDT documented as of this encounter Care Teams Planishing Hammer Operator Relationship Specialty Start Date End Date Tor Crews MD 230 [place] [address] PCP - General Internal Medicine 07/21/14 documented as of this encounter
--- OUTSIDE RECORDS SUMMARY | 2025-07-01 10:38 | XMS_ITS | Clinical Summary ---
Author Organization [facility] Address [address] [place] [address] [place] [address] Phone Care Team Providers Care Erp Project Manager Name Role Phone Tor Guzman MD Primary [...] (6 to 49 Years) Discontinued 04/17/2023 Insurance [facility] ([id number]) [facility] ([id number]) Care Teams Erp Project Manager Relationship Specialty Start Date End Date Tor Guzman MD PCP - General 11/06/20
--- OUTSIDE RECORDS SUMMARY | 2025-07-01 10:38 | XMS_ITS | Encounter Summary ---
Author Organization [employer] Address [address] [facility] 7t [place] [address] Care Team Providers Care Fire And Safety Helper Name Role Phone Tor Crews MD Primary Care Provide r Encounter Details Date Type Department Care Team (Late st Contact Info) Description 12/17/2022 Orders Only [facility] MEDICINE 230 [place] [address] Ally Rodríguez LPN Social History Tobacco Use [...] Description 09/01/2025 2:15 PM EST Office Visit [facility] MEDICINE 230 [place] [address] Tor Crews MD 230 [place] [address] 09/14/2025 9:00 AM EST Office Visit [facility] OPTOMETRY [address] [place] [address] Ajith, Nohemi, OD 230 [place] [address] documented as of this encounter Visit Diagnoses Not on filedocumented in this encounter Care Teams Fire And Safety Helper Relationship Specialty Start Date End Date Tor Crews MD [address] [place] [address] PCP - General Internal Medicine 07/21/14 documented as of this encounter
--- OUTSIDE RECORDS SUMMARY | 2025-07-01 10:38 | XMS_ITS | Encounter Summary ---
Author Organization [employer] Address [address] [facility] [address] 7t [place] [address] Care Team Providers Care Director Of Home Economics Name Role Phone Tor Crews MD Primary Care Provide r Reason for Visit * Reason Onset Date Comments Paperwork/Forms 06/20/2025 Encounter Details Date Type Department Care Team ([facility] st Contact Info) Description 06/20/2025 Telephone [facility] MEDICINE 230 [place] [address] Gloria Mcdonnell RN 230 [place] [address] Paperwork/Forms Social History Tobacco Use Types Packs/Day Years [...] encounter Miscellaneous Notes * Telephone Encounter - Sierra Rawls RN - 06/28/2025 4:29 PM EDT Received duplicate request, per note below, already faxed 06/23/25 with notes. Pt also not prescribed CGM by PCP. * Telephone Encounter - Maria Luisa Cabezas RN - 06/23/2025 9:34 AM EDT CGM form from [employer] [facility] signed by PCP and faxed to [phone]. Will send to scan * Telephone Encounter - Gloria Mcdonnell RN - 06/20/2025 3:10 PM EDT Received form from [facility] for CGM. Filled out, attached requesting documentation, and placed on PCP's desk. Pending signature. documented in this encounter Plan of Treatment Upcoming Encounters Date Type Department Care Team (Late st Contact Info) Description 09/01/2025 2:15 PM EST Office Visit [facility] MEDICINE [address] [place] [address] [phone] Tor Crews MD 230 [place], [place] [phone] 09/14/2025 9:00 AM EST Office Visit [facility] OPTOMETRY [address] [place], [place] [phone] Ajith, Nohemi, OD 230 [place], [place] [phone] documented as of this encounter Visit Diagnoses Not on filedocumented in this encounter Additional Health Concerns Assessment Noted Time PHQ-9 Depression Total Score: 4 03/04/20 23 2:58 PM EDT documented as of this encounter Care Teams Director Of Home Economics Relationship Specialty Start Date End Date Tor Crews MD 230 [place], [place] [phone] PCP - General Internal Medicine 07/21/14 documented as of this encounter
--- OUTSIDE RECORDS SUMMARY | 2025-07-01 10:38 | XMS_ITS | Encounter Summary ---
Author Organization [employer] Address [address] [facility] 7t [place] [address] Care Team Providers Care Sanitation Director Name Role Phone Tor Crews MD Primary Care Provide r Reason for Visit * Reason Comments Med Refill Encounter Details Date Type Department Care Team ([facility] st Contact Info) Description 07/01/2025 Refill [facility] MEDICINE 230 [place], [place] [phone] Tor Crews MD 230 [place], [place] [phone] Type 2 diabetes mellitus with stage 3b chronic kidney disease, with long-term current use of insulin ([facility]) Social History Tobacco Use Types Packs/Day Years [...] Description 09/01/2025 2:15 PM EST Office Visit [facility] MEDICINE 230 [place] [address] Tor Crews MD 230 [place] [address] 09/14/2025 9:00 AM EST Office Visit [facility] OPTOMETRY [address] [place], [place] [phone] Nohemi Canseco, OD 230 [place] [address] documented as of this encounter Visit Diagnoses Diagnosis Type 2 diabetes mellitus with stage 3b chronic kidney disease, with long-term current use of insulin ([facility]) documented in this encounter Additional Health Concerns Assessment Noted Time PHQ-9 Depression Total Score: 4 03/04/20 23 2:58 PM EDT documented as of this encounter Care Teams Sanitation Director Relationship Specialty Start Date End Date Tor Crews MD [address] [place] [address] PCP - General Internal Medicine 07/21/14 documented as of this encounter
--- OUTSIDE RECORDS SUMMARY | 2025-07-01 10:38 | XMS_ITS | Encounter Summary ---
Author Organization [employer] Address [address] [place] [address] Care Team Providers Care Thin Film Technician Name Role Phone Tor Crews MD Primary Care Provide r Reason for Visit * Reason Onset Date Comments triage 01/13/2023 Encounter Details Date Type Department Care Team ([facility] st Contact Info) Description 01/13/2023 Telephone [facility] MEDICINE 230 [place], [place] [phone] Tor Crews MD 230 [place], [place] [phone] triage Social History Tobacco Use Types Packs/Day [...] 01/13/2023 1:24 PM EDT Triage call with [place] Operator ID [id number] Pt reports upper abdominal pain since last [...] light yellow/clear. Advised Pt to come to [facility] today and Pt agreed. Home care reviewed. [...] Description 09/01/2025 2:15 PM EST Office Visit [facility] MEDICINE 230 [place] [address] Tor Crews MD 230 [place] [address] 09/14/2025 9:00 AM EST Office Visit [facility] OPTOMETRY [address] [place] [address] Nohemi Canseco, OD 230 [place] [address] documented as of this encounter Visit Diagnoses Not on filedocumented in this encounter Care Teams Thin Film Technician Relationship Specialty Start Date End Date Tor Crwes MD 230 [place] [address] PCP - General Internal Medicine 07/21/14 documented as of this encounter
== END 2025-07-01 11:01 | disposition home or self-care (01) ==
LOC: HO.HSMS 09:51
PROVIDERS: PCP Internal Medicine; Visit Provider Nurse Practitioner Family
DX: G47.33 Obstructive sleep apnea (adult) (pediatric) (principal); G25.81 Restless legs syndrome; R25.2 Cramp and spasm
CPT/HCPCS: 99213

== ENCOUNTER → 2025-07-01 09:50 | Outpatient (BNVA) | payer OTHER, SELFPAY | PROVIDERS: PCP Internal Medicine; Visit Provider Nurse Practitioner Family | DX: G25.81 Restless legs syndrome (principal); G47.33 Obstructive sleep apnea (adult) (pediatric); E55.9 Vitamin D deficiency, unspecified | CPT/HCPCS: 99212 ==

== ENCOUNTER → 2025-08-23 23:59 | Outpatient (BNV) | payer OTHER, SELFPAY ==
--- NOTE | 2025-08-24 12:59 | A.OFFVIS_ITS ---
Intake Visit Reasons: Remote ICD check- [employer] [employer] Allergies Seasonal Allergies Allergy (Unknown, Verified 07/01/25 10:08) Unknown [facility] Medical History ICD (implantable cardioverter-defibrillator) lead failure Biventricular ICD (implantable cardioverter-defibrillator) in place Nonischemic cardiomyopathy GERD (gastroesophageal reflux disease) Asthma NANO (obstructive sleep apnea) Obesity due to excess calories HLD (hyperlipidemia) Type 2 diabetes mellitus with chronic kidney disease Heart failure with reduced ejection fraction Implantable cardioverter-defibrillator lead failure High cholesterol Diabetes HTN (hypertension) Pacemaker Surgical History S/P ICD (internal cardiac defibrillator) procedure History of tonsillectomy Hx of cardiac cath Hx of transesophageal echocardiography (DAWN) for monitoring History of permanent cardiac pacemaker placement (~2008) History of circumcision Family History Father HTN (hypertension) Diabetes CVD (cardiovascular disease) Hypercholesterolemia Mother Hypercholesterolemia HTN (hypertension) Diabetes Social History Household Members: Spouse Household Members Other:: SO:Thu Housing: Apartment Do you presently have visiting nurse or other home services: No Alcohol intake: current Alcohol intake frequency: 3 or more drinks per day Patient Tobacco Use Status: Never used Tobacco Tobacco use type: Cigarette service: No Office Procedures Cardiac Device Check Cardiac Device Check Details: Remote ICD report generated 08/15/2025. ICD function is adequate. Bi V pacing 97% of the time [id number] Cardiac Interrogation, implant defibrillator w/interim Procedure code (CPT) selection complete Assessment & Plan Assessment & Plan (1) Biventricular ICD (implantable cardioverter-defibrillator) in place: Code(s): Z95.810 - Presence of automatic (implantable) cardiac defibrillator Category: Medical Plan: See above Coding Level of Care Code Procedure Only Diagnoses Biventricular ICD (implantable cardioverter-defibrillator) in place Z95.810 CPT Codes Cardiac Device Check - Cardiac Device 13: [id number] Cardiac Interrogation, implant defibrillator w/interim ([id number])
== END ==
PROVIDERS: PCP Internal Medicine; Visit Provider Internal Medicine Cardiovascular Disease
DX: Z45.02 Encounter for adjustment and management of automatic implantable cardiac defibrillator (principal)
CPT/HCPCS: 93295

== ENCOUNTER 2025-09-30 12:41 | Emergency (ER) | payer OTHER, SELFPAY ==
--- NOTE | ~2025-09-30 | XR_ITS ---
EXAMINATION: XR CHEST CLINICAL INFORMATION: cough COMPARISON: Previous chest x-ray most recently September 2024 TECHNIQUE: Frontal view of the chest was obtained. FINDINGS: Left subclavian pacemaker/AICD leads appear unchanged. The lungs are clear. No consolidation or pulmonary edema. No pleural effusion or pneumothorax. Cardiac and mediastinal contours are stable. Degenerative changes of the spine. XR/XR chest 1V IMPRESSION: No evidence for acute disease in the chest. Electronically signed by: Era Valerio MD 09/30/2025 01:46 PM EST
--- OUTSIDE RECORDS SUMMARY | 2025-09-30 11:00 | XMS_ITS | Encounter Summary ---
Author Organization [employer] Address [address] [place] [address] Care Team Providers Care Activity Coordinator Name Role Phone Tor Crews MD Primary Care Provide r Reason for Visit * Reason Comments sick visit Encounter Details Date Type Department Care Team ([facility] st Contact Info) Description 09/30/2025 11:00 AM EST Office Visit [facility] [address], [place] [phone] Mahsa Johnson DO [address] [place], [place] [phone] COVID-19 (Primary Dx); Sore throat; Seasonal allergies Social History Tobacco Use Types Packs/Day Years Used Date Smoking Tobacco: Some Days Cigarettes Passive Smoke Exposure: Current Smokeless Tobacco: Current Tobacco Cessation:Ready to Q uit: Not Asked; Counseling Given: Not Answered Alcohol Use Standard Drinks/Week Comments Yes 0 (1 standard drink = 0.6 oz pur e alcohol) Depression Answer Date Recorded Patient Health Questionnaire-9 Score 21 09/01/2025 Patient Health Questionnaire-9 Score 21 09/01/2025 Last PHQ-9: Questionnaire Data Not on file 1 11/01/2024 Housing Stability Answer Date Recorded What is your housing situation today? I have jess su 08/25/[address] you li ve. Do you have problems with any of the following? None of the above 08/25/2025 Food Insecurity Answer Date Recorded Within the past 12 months, y ou worried that your food would run out before you got money to buy more: Never True 08/25/2025 Within the past 12 months,th e food you bought just didn't last and you didn't have enough money to get more: Never True Transportation Answer Date Recorded In the past 12 months, has l ack of transportation kept you from medical appts, meetings, work or from getting things needed for daily living? No 08/25/2025 Utilities Answer Date Recorded In the past 12 months, has t he electric, gas, oil or water company threatened to shut off services in your home? No 08/25/2025 Depression Answer Date Recorded Patient Health Questionnaire-2 Score 6 09/01/2025 Internet Access Answer Date Recorded Internet Access [...] Sign Reading Time Taken Comments Blood Pressure 96/60 09/30/2025 12:07 PM EST Pulse 81 09/30/2025 11:10 AM EST Temperature 37.1 C (98.7 F) 09/30/2025 11:10 AM EST Respiratory Rate 20 09/30/2025 11:10 AM EST Oxygen Saturation 97% 09/30/2025 11:10 AM EST Inhaled Oxygen Concentration - - Weight 89.8 kg (198 lb) 09/30/2025 11:10 AM EST Height 170.2 cm (5' 7 ) 09/30/2025 11:10 AM EST Body Mass Index 31.01 09/30/2025 11:10 AM EST documented in this encounter Plan of Treatment Upcoming Encounters Date Type Department Care Team (Late st Contact Info) Description 12/13/2025 10:30 AM EST Office Visit [facility] [address] [place] [address] Tor Crews MD [address] [place] [address] Scheduled Orders Name Type Priority Associated Diagnoses Orde r Schedule XR Chest 2 Views Imaging STAT COVID-19 Expected: 09/30/2025, Expires: 09/30/2026 documented as of this encounter Goals Goal Patient Goal Type Associated Problems Recent Progress Patient-Stated? Author Help patients manage their type 2 diabetes Care Plan Help patients manage their type 2 diabetes No HobsonItalo peters [place] Weekly blood pressure task Care Plan Weekly blood pressure task No HobsonItalo peters [place] Help patients manage their type 2 diabetes Care Plan Help patients manage their type 2 diabetes No HobsonGurinder petersomy [place] Patient has chronic kidney disease Care Plan Patient has chronic kidney disease No HobsonItalo peters [place] Weekly blood pressure task Care Plan Weekly blood pressure task No HobsonElvia petersuyomy, [place] Patient has chronic kidney disease Care Plan Patient has chronic kidney disease No HobsonGurinder petersomy [place] Weekly blood pressure task Care Plan Weekly blood pressure task No Hilario Smith Weekly blood pressure task Care Plan Weekly blood pressure task No Tomanthony Hilario Patient has chronic kidney disease Care Plan Patient has chronic kidney disease No Tomanthony Hilario Patient has chronic kidney disease Care Plan Patient has chronic kidney disease No Hilario Smith Weekly blood pressure task Care Plan Weekly blood pressure task No Ferrer Haas, [place], [place] Weekly blood pressure task Care Plan Weekly blood pressure task No Ferrer Haas [place], [place] Patient has chronic kidney disease Care Plan Patient has chronic kidney disease [facility] [place] Patient has chronic kidney disease Care Plan Patient has chronic kidney disease [facility] [place] Weekly blood pressure task Care Plan Weekly blood pressure task No Anne Glass RN Weekly blood pressure task Care Plan Weekly blood pressure task No Anne Glass RN Patient has chronic kidney disease Care Plan Patient has chronic kidney disease No Anne Glass RN Patient has chronic kidney disease Care Plan Patient has chronic kidney disease No Anne Glass RN Weekly blood pressure task Care Plan Weekly blood pressure task No Anne Glass RN Weekly blood pressure task Care Plan Weekly blood pressure task No Anne Glass RN Patient has chronic kidney disease Care Plan Patient has chronic kidney disease No Anne Glass RN Patient has chronic kidney disease Care Plan Patient has chronic kidney disease No Anne Glass RN Weekly blood pressure task Care Plan Weekly blood pressure task No Juan A Moran Weekly blood pressure task Care Plan Weekly blood pressure task No Isidra Moranjalen Patient has chronic kidney disease Care Plan Patient has chronic kidney disease No Linda wellington Isidrajalen Patient has chronic kidney disease Care Plan Patient has chronic kidney disease No Linda wellington Juan A Weekly blood pressure task Care Plan Weekly blood pressure task No Porsche Spencer [place] Weekly blood pressure task Care Plan Weekly blood pressure task No Porsche Spencer [place] Patient has chronic kidney disease Care Plan Patient has chronic kidney disease No Porsche Spencer [place] Patient has chronic kidney disease Care Plan Patient has chronic kidney disease No Porsche Spencer [place] Weekly blood pressure task Care Plan Weekly blood pressure task No Martine Tavera RN Weekly blood pressure task Care Plan Weekly blood pressure task No Martine Tavera RN Patient has chronic kidney disease Care Plan Patient has chronic kidney disease No Martine Tavera RN Patient has chronic kidney disease Care Plan Patient has chronic kidney disease No Martine Tavera, [place] documented as of this encounter Procedures Procedure Name Priority Date/Time Associated Diagnosis Comments POCT INFLUENZA B (ID NOW RAPID MOLECULAR) Routine 09/30/2025 11:29 AM EST COVID-19 POCT INFLUENZA A (ID NOW RAPID MOLECULAR) Routine 09/30/2025 11:29 AM EST COVID-19 POC HENRY ID NOW STREP A Routine 09/30/2025 11:29 AM EST Sore throat POCT RAPID COVID ANTIGEN Routine 09/30/2025 11:28 AM EST COVID-19 documented in this encounter Results * POCT Rapid Strep A HENRY ID NOW (09/30/2025 11:29 AM EST) Pathologist [facility] Rapid Strep A Screen Negative Negative, None Detected Swab 09/30/2025 11:2 9 AM EST Mahsa Johnson DO POINT OF CARE TEST ENTER/JAQUELINE T ORDERABLES Final Result * POCT Rapid Influenza A HENRY ID NOW (09/30/2025 11:29 AM EST) Pathologist [facility] Influenza A Negative Negative, Indeterminate [facility] Swab 09/30/2025 11:2 9 AM EST us Mahsa Johnson DO POINT OF CARE TEST ENTER/JAQUELINE T ORDERABLES Final Result Performing Organization Address [facility]/ZIP Co de Phone Number [facility] [address] [place] [phone] * POCT Rapid Influenza B HENRY ID NOW (09/30/2025 11:29 AM EST) [facility] Influenza B Negative Negative, Indeterminate [facility] Swab 09/30/2025 11:2 9 AM EST us Mahsa Johnson DO POINT OF CARE TEST ENTER/JAQUELINE T ORDERABLES Final Result Performing Organization Address [facility] Co de Phone Number [facility] [address] [place] [phone] * (ABNORMAL) POCT Rapid Covid-19 BinaxNOW (09/30/2025 11:28 AM EST) [facility] Rapid COVID Ag Positive Swab 09/30/2025 11:2 8 AM EST us Mahsa Johnson DO POINT OF CARE TEST ENTER/JAQUELINE T ORDERABLES Final Result documented in this encounter Visit Diagnoses Diagnosis COVID-19- Primary Sore throat Acute pharyngitis Seasonal allergies Allergic rhinitis, cause unspecified documented in this encounter Additional Health Concerns Active Problems Noted Date Diagnosed Date Help patients manage their type 2 diabetes 09/13 Weekly blood pressure task 09/13/2025 Help patients manage their type 2 diabetes 09/13 Patient has chronic kidney disease 09/13/2025 Weekly blood pressure task 09/13/2025 Patient has chronic kidney disease 09/13/2025 Weekly blood pressure task 09/14/2025 Weekly blood pressure task 09/14/2025 Patient has chronic kidney disease 09/14/2025 Patient has chronic kidney disease 09/14/2025 Weekly blood pressure task 09/15/2025 Weekly blood pressure task 09/15/2025 Patient has chronic kidney disease 09/15/2025 Patient has chronic kidney disease 09/15/2025 Weekly blood pressure task 09/16/2025 Weekly blood pressure task 09/16/2025 Patient has chronic kidney disease 09/16/2025 Patient has chronic kidney disease 09/16/2025 Weekly blood pressure task 09/16/2025 Weekly blood pressure task 09/16/2025 Patient has chronic kidney disease 09/16/2025 Patient has chronic kidney disease 09/16/2025 Weekly blood pressure task 09/29/2025 Weekly blood pressure task 09/29/2025 Patient has chronic kidney disease 09/29/2025 Patient has chronic kidney disease 09/29/2025 Weekly blood pressure task 09/29/2025 Weekly blood pressure task 09/29/2025 Patient has chronic kidney disease 09/29/2025 Patient has chronic kidney disease 09/29/2025 Weekly blood pressure task 09/30/2025 Weekly blood pressure task 09/30/2025 Patient has chronic kidney disease 09/30/2025 Patient has chronic kidney disease 09/30/2025 Assessment Noted Time PHQ-9 Depression Total Score: 21 025 2:25 PM EST documented as of this encounter Care Teams Activity Coordinator Relationship Specialty Start Date End Date Tor Crews MD [address] [place] [id number] PCP - General Internal Medicine 07/21/14 documented as of this encounter
[2025-09-30 12:49] VITALS: BP 146/86; PULSE 78
--- NOTE | 2025-09-30 13:06 | ECG_ITS ---
Test Reason : weakness Blood Pressure : */* mmHG Vent. Rate : 68 BPM Atrial Rate : 68 BPM P-R Int : 110 ms QRS Dur : 128 ms QT Int : 406 ms P-R-T Axes : 89 80 -3 degrees QTcB Int : 431 ms Atrial-sensed ventricular-paced rhythm Abnormal ECG When compared with ECG of 30-Dec-2024 10:18, Premature ventricular complexes are no longer Present Vent. rate has decreased by 31 bpm Referred By: Jennifer Sneed Electronically Signed By: JOZEF WORLEY
[2025-09-30 13:14] VITALS: BP 106/66; PULSE 72; RESP 16; TEMP 36.9; O2SAT 98
--- NOTE | 2025-09-30 13:17 | ED.URI ---
HPI - URI/Sore Throat General Chief Complaint: Upper Respiratory Symptoms Stated Complaint: +Covid, hypotension from UC Time Seen by Provider: 09/30/25 13:08 Source: patient History of Present Illness HPI Narrative: This is a 55 years old male was referred to us from urgent care because of cough congestion he was diagnosed positive COVID. He has a history of nonischemic cardiomyopathy, he has a an implantable defibrillator/ICD Onset (ago): day(s) (5) Consistency: constant Severity: moderate Description of mucous: clear Exacerbating factors: nothing Relieving factors: nothing Related Data Home Medications ?Medication ?Instructions ?Recorded ?Confirmed insulin glargine 100 unit/mL 40 unit subcut BEDTIME 03/13/21 07/01/25 subcutaneous solution sertraline 100 mg tablet 200 mg PO DAILY 03/13/21 07/01/25 hydroxyzine pamoate 50 mg capsule 50 mg PO BEDTIME PRN Anxiety 06/26/21 07/01/25 mirtazapine 45 mg tablet 45 mg PO BEDTIME 06/26/21 07/01/25 omeprazole 40 mg capsule,delayed 40 mg PO DAILY@0630 11/01/21 07/01/25 release pen needle, diabetic 32 gauge x #50 ea 11/01/21 07/01/25 (Pentips Pen Needle) aspirin 81 mg tablet,delayed 81 mg PO DAILY 10/16/22 07/01/25 release fenofibrate 54 mg tablet 54 mg PO DAILY 08/13/23 07/01/25 insulin aspart U-100 100 unit/mL See Protocol subcut TIDAC 08/13/23 07/01/25 (3 mL) subcutaneous pen omega-3 300 mg-dha 120 mg-epa 180 1 cap PO TID 08/13/23 07/01/25 mg-fish oil 1,000 mg capsule empagliflozin 25 mg tablet 25 mg PO DAILY 10/21/24 07/01/25 (Jardiance) furosemide 40 mg tablet 40 mg PO DAILY 10/21/24 07/01/25 semaglutide 0.25 mg or 0.5 mg (2 0.5 mg subcut WE 10/21/24 07/01/25 mg/3 mL) subcutaneous pen injector (Ozempic) Previous Rx's ?Medication ?Instructions ?Recorded albuterol sulfate 90 mcg/actuation 2 inh inhalation Q4-6H PRN 08/01/20 breath activated powder inhaler shortness of breath or wheezing #1 ea lancets 33 gauge (TRUEplus Lancets) #200 ea 03/13/21 flash glucose scanning reader #1 ea 01/31/22 (FreeStyle Garrick 2 [place]) flash glucose sensor (FreeStyle #2 ea 01/31/22 Garrick 2 Sensor kit) metformin 500 mg tablet 500 mg PO BID #60 tabs 02/05/22 blood sugar diagnostic (FreeStyle #150 ea 05/02/22 Lite Strips) acetaminophen 500 mg tablet 1,000 mg (2 x 500 mg) PO QID PRN 05/16/22 (Tylenol Extra Strength) fever or pain #14 tabs sacubitril 24 mg-valsartan 26 mg 1 tab PO BID #30 tabs 08/15/23 tablet (Entresto) nebulizers (AeroEclipse II #1 ea 10/16/24 Nebulizer) doxycycline hyclate 100 mg tablet 100 mg PO BID #14 tabs 10/25/24 glyburide 5 mg tablet 10 mg (2 x 5 mg) PO BIDWM #60 tabs 10/25/24 prednisone 20 mg tablet See Rx Instructions .Route 10/25/24 .COMPLEX #18 tabs digoxin 250 mcg (0.25 mg) tablet 250 mcg PO DAILY #90 tabs 10/29/24 magnesium oxide 400 mg (241.3 mg 400 mg PO BEDTIME 90 days #90 tabs 07/01/25 magnesium) tablet cholecalciferol (vitamin D3) 1,250 1,250 mcg PO QWEEK 12 weeks #12 07/29/25 mcg (50,000 unit) capsule caps metoprolol succinate 25 mg 25 mg PO QAM #90 tabs 09/01/25 tablet,extended release 24 hr ivabradine 7.5 mg tablet (Corlanor) 7.5 mg PO BID #180 tabs 09/05/25 doxycycline monohydrate 100 mg 100 mg PO BID #14 caps 09/30/25 capsule prednisone 20 mg tablet 40 mg (2 x 20 mg) PO DAILY 5 days 09/30/25 #10 tabs Allergies Allergy/AdvReac Type Severity Reaction Status Date / Time Seasonal Allergies Allergy Unknown Unknown Verified 09/30/25 14:14 Review of Systems Constitutional: Constitutional: Reports no additional constitutional complaints ENT: Reports system reviewed and no additional complaints, except as documented Musculoskeletal: Musculoskeletal: Reports no additional musculoskeletal complaints [facility] Past Medical History Attestation statement: The following information was validated with the patient. [facility] Narrative: Nonischemic cardiomyopathy implantable defibrillator Medical History ICD (implantable cardioverter-defibrillator) lead failure Biventricular ICD (implantable cardioverter-defibrillator) in place Nonischemic cardiomyopathy GERD (gastroesophageal reflux disease) Asthma NANO (obstructive sleep apnea) Obesity due to excess calories HLD (hyperlipidemia) Type 2 diabetes mellitus with chronic kidney disease Heart failure with reduced ejection fraction Implantable cardioverter-defibrillator lead failure High cholesterol Diabetes HTN (hypertension) Pacemaker Surgical History S/P ICD (internal cardiac defibrillator) procedure History of tonsillectomy Hx of cardiac cath Hx of transesophageal echocardiography (DAWN) for monitoring History of permanent cardiac pacemaker placement (~2008) History of circumcision Family History Family History Father HTN (hypertension) Diabetes CVD (cardiovascular disease) Hypercholesterolemia Mother Hypercholesterolemia HTN (hypertension) Diabetes Social History Social History Household Members: Spouse Household Members Other:: SO:Thu Housing: Apartment Do you presently have visiting nurse or other home services: No Alcohol intake: current Alcohol intake frequency: 3 or more drinks per day Patient Tobacco Use Status: Never used Tobacco Tobacco use type: Cigarette Smoked in Last 30 Days: No Use of substances other than those prescribed or required for medical reasons: No Advance Directives: No Advance Directives Information Provided: No Do you have a plan to hurt others: No Plan service: No Physical Exam Exam: Exam: Looks well is not toxic-appearing he has no fever or chills to sat is 98% Vital Signs: Vital Signs: Last Vital Signs Temp 98.4 F 09/30/25 14:12 Pulse 70 09/30/25 14:12 Resp 16 09/30/25 14:12 BP 106/66 09/30/25 14:12 Pulse Ox 99 09/30/25 14:23 O2 Del Method Room Air 09/30/25 14:23 BMI result Body Mass Index 31.3 I reviewed the vital signs he is afebrile normotensive Const: General: cooperative Nutritional Appearance: well nourished Orientation/consciousness: patient oriented x3 HEENT: Head: Yes normal to inspection General nose exam: Normal external nose present Neck: Neck: Yes normal visual inspection Resp: Effort & Inspection: normal respiratory effort Auscultation: rhonchi Cardio: Jugular venous distension: no JVD Rate: regular rate Rhythm: regular rhythm GI: Inspection: Yes normal to inspection Palpation (GI): Soft to palpation, not firm and nontender Auscultation: normal bowel sounds Skin: General skin exam: no rashes or lesions noted, elasticity normal and turgor normal Rashes: no rashes Neuro: General: patient oriented x3 Medical Decision Making Medical Decision Making [facility] Narrative: Patient is here with cough congestion we will obtain a chest x-ray labs and reassessed 15:49 patient remained stable he is afebrile normotensive his sat is 99% he is not tachypneic his respirations 16 chest x-ray negative labs normal I think he can be discharged home. I will send him home with prednisone and also give him an antibiotic. too late for Paxlovid with a because the symptoms have been ongoing for few days Differential Diagnosis Differential Diagnoses: The differential diagnosis associated with the presentation includes COVID pneumonia/call with the/flu Lab Data [facility] Lab Attestation statement: I reviewed the patient's lab results. 09/30/25 13:21 09/30/25 13:45 Labs: Lab Results 09/30/25 09/30/25 Range/Units 13:21 13:45 WBC 5.0 (4.8-10.8) X10*3/uL RBC 5.14 (4.60-5.80) X10*6/uL Hgb 14.5 (14.0-18.0) g/dl Hct 42.2 (42.0-52.0) % MCV 82.1 (80.0-98.0) fL MCH 28.2 (27.0-33.0) pg MCHC 34.4 (31.0-36.0) g/dl RDW 12.5 (11.0-16.0) % Plt Count 211 (160-400) X10*3/uL MPV 9.8 (9.4-12.4) fL Immature Gran % (Auto) 0.2 (0.0-0.4) % Neut % (Auto) 53.3 (45-73) % Lymph % (Auto) 36.5 (20-40) % [place] % (Auto) 6.2 (2-11) % Eos % (Auto) 3.4 (0-4) % Baso % (Auto) 0.4 (0-2) % Lymph # (Auto) 1.8 (1.2-4.9) X10*3/uL [place] # (Auto) 0.3 (0.1-1.2) X10*3/uL Eos # (Auto) 0.2 (0.0-0.4) X10*3/uL Baso # (Auto) 0.0 (0.0-0.2) X10*3/uL Abs Immat Gran (auto) 0.01 (0.00-0.03) X10*3/uL Absolute Neuts (auto) 2.7 (2.0-8.3) x10*3/uL Absolute Nucleated RBC 0.000 (0.0-0.012) X10*3/uL Nucleated RBC % (auto) 0.0 (0.0-0.2) /100WBC Sodium 141 (135-145) mmol/L Potassium 3.7 (3.3-5.1) mmol/L Chloride 109 H (96-108) mmol/L Carbon Dioxide 23 (22-29) mmol/L Anion Gap 13 (12-20) BUN 17 H (9-16) mg/dL Creatinine 1.28 (0.5-1.4) mg/dL Estim Creat Clear Calc 70.8 Estimated GFR 59 Random Glucose 144 H (60-115) mg/dL Calcium 9.5 (8.4-10.2) mg/dL Magnesium 2.1 (1.6-2.6) mg/dL Total Bilirubin 0.3 (0.0-1.0) mg/dL AST 22 (5-37) U/L ALT 22 (0-40) U/L Alkaline Phosphatase 78 (39-117) U/L Troponin I High Sens < 2.7 (<3.5-35.0) ng/L NT-Pro-B Natriuret Pep 105.6 (<300) pg/mL Total Protein 7.4 (6.5-8.0) g/dL Albumin 4.6 (3.5-5.0) g/dL Independent Interpretation I performed an independent interpretation of an: EKG and Plain X-Ray Interpretation: Paced rhythm Radiology Impression Discussion of test interpretation with radiology: I have reviewed the radiologist's reading. Radiologist Impression: COMPARISON: Previous chest x-ray most recently September 2024 TECHNIQUE: Frontal view of the chest was obtained. FINDINGS: Left subclavian pacemaker/AICD leads appear unchanged. The lungs are clear. No consolidation or pulmonary edema. No pleural effusion or pneumothorax. Cardiac and mediastinal contours are stable. Degenerative changes of the spine. XR/XR chest 1V IMPRESSION: No evidence for acute disease in the chest. Electronically signed by: Era Valerio MD 09/30/2025 01:46 PM EST Dictated By: Era Valerio MD Signed By: <Electronically signed by Era Valerio MD in OV> 09/30/25 1346 Discharge Plan Discharge Clinical Impression: COVID-19, Bronchitis Patient Disposition: Home, Self-Care Instructions: COVID-19 (Coronavirus Disease 2019) (ED) Additional Instructions: Follow-up with your primary care physician, and a prescription for prednisone and an antibiotic just in case Prescriptions: New prednisone 20 mg tablet 40 mg PO DAILY 5 Days Qty: 10 0RF doxycycline monohydrate 100 mg capsule 100 mg PO BID Qty: 14 0RF No Action metformin 500 mg tablet 500 mg PO BID Qty: 60 6RF (DME) FreeStyle Lite Strips Strip See Rx Instructions .ROUTE .MEDSUPPLY Qty: 150 11RF Rx Instructions: As directed four times a day digoxin 250 mcg (0.25 mg) tablet 250 mcg PO DAILY Qty: 90 3RF cholecalciferol (vitamin D3) 1,250 mcg (50,000 unit) capsule 1,250 mcg PO QWEEK 84 Days Qty: 12 0RF metoprolol succinate 25 mg tablet extended release 24 hr 25 mg PO QAM Qty: 90 3RF Corlanor 7.5 mg tablet 7.5 mg PO BID Qty: 180 3RF albuterol sulfate 90 mcg/actuation aerosol powdr breath activated 2 inh inhalation Q4-6H PRN (Reason: shortness of breath or wheezing) Qty: 1 0RF acetaminophen [Tylenol Extra Strength] 500 mg tablet 1,000 mg PO QID PRN (Reason: fever or pain) Qty: 14 0RF fenofibrate 54 mg tablet 54 mg PO DAILY omega 1-znb-sgl-fish oil 300 mg (120 mg- 180mg)-1,000 mg capsule 1 cap PO TID insulin aspart U-100 100 unit/mL (3 mL) insulin pen See Protocol subcut TIDAC Protocol: Insulin Correction Scale Less than or equal to 110 ---- Give (units): 0 111 to 150 Give (units): 0 151 to 200 Give (units): 2 201 to 250 Give (units): 4 251 to 300 Give (units): 6 301 to 350 Give (units): 8 Greater than 350 Give (units): 10 Call MD if Blood Glucose > : 350 sacubitril-valsartan [Entresto] 24-26 mg Tablet 1 tab PO BID Qty: 30 0RF Protocol: Hold for SBP< HOLD for SBP < : 90 furosemide 40 mg tablet 40 mg PO DAILY Ozempic 0.25 mg or 0.5 mg (2 mg/3 mL) pen injector 0.5 mg subcut WE Jardiance 25 mg tablet 25 mg PO DAILY glyburide 5 mg Tablet 10 mg PO BIDWM Qty: 60 0RF doxycycline hyclate 100 mg tablet 100 mg PO BID Qty: 14 0RF prednisone 20 mg tablet See Rx Instructions .Route .COMPLEX Qty: 18 0RF Rx Instructions: 20 mg orally; 3 tabs daily for 3 days, 2 tabs daily for 3 days, 1 tab daily for 3 days (DME) nebulizers [AeroEclipse II Nebulizer] [facility] See Rx Instructions .Route Qty: 1 0RF Rx Instructions: As directed sertraline 100 mg tablet 200 mg PO DAILY insulin glargine 100 unit/mL solution 40 unit subcut BEDTIME (DME) lancets [TRUEplus Lancets] 33 gauge misc See Rx Instructions .ROUTE .MEDSUPPLY Qty: 200 11RF Rx Instructions: Four times a day mirtazapine 45 mg tablet 45 mg PO BEDTIME hydroxyzine pamoate 50 mg capsule 50 mg PO BEDTIME PRN (Reason: Anxiety) omeprazole 40 mg capsule,delayed release(DR/EC) 40 mg PO DAILY@0630 (DME) pen needle, diabetic [Pentips Pen Needle] 32 gauge x needle See Rx Instructions .ROUTE TID Qty: 50 Rx Instructions: As directed (DME) FreeStyle Garrick 2 [place] [facility] See Rx Instructions .ROUTE .MEDSUPPLY Qty: 1 0RF Rx Instructions: As directed (DME) FreeStyle Garrick 2 Sensor Kit See Rx Instructions .ROUTE .MEDSUPPLY Qty: 2 11RF Rx Instructions: As directed every 2 weeks aspirin 81 mg tablet,delayed release (DR/EC) 81 mg PO DAILY magnesium oxide 400 mg (241.3 mg magnesium) tablet 400 mg PO BEDTIME 90 Days Qty: 90 3RF Rx Instructions: may hold for loose stools Print Language: Luxembourgish
[2025-09-30 13:26] LABS: MANUAL DIFF FLAG NO
[2025-09-30 13:27] LABS: Hematocrit 42.2 % (42.0-52.0); Hemoglobin 14.5 g/dl (14.0-18.0); Imm Gran Abs Auto 0.01 X10*3/uL (0.00-0.03); Imm Gran Pct Auto 0.2 % (0.0-0.4); Lymphocytes Absolute Auto 1.8 X10*3/uL (1.2-4.9); Mean Corpuscular HGB Conc 34.4 g/dl (31.0-36.0); Mean Corpuscular Hemoglobin 28.2 pg (27.0-33.0); Mean Corpuscular Volume 82.1 fL (80.0-98.0); NRBC Abs Auto 0.000 X10*3/uL (0.0-0.012); NRBC Pct Auto 0.0 /100WBC (0.0-0.2); Platelet Count 211 X10*3/uL (160-400); Red Blood Count 5.14 X10*6/uL (4.60-5.80); White Blood Count 5.0 X10*3/uL (4.8-10.8)
[2025-09-30 14:12] VITALS: BP 106/66; PULSE 70; RESP 16; TEMP 36.9; O2SAT 99; BMI 31.3
[2025-09-30 14:19] LABS: Alanine Aminotransferase 22 U/L (0-40); Albumin Level 4.6 g/dL (3.5-5.0); Alkaline Phosphatase 78 U/L (39-117); Anion Gap 13 (12-20); Aspartate Amino Transferase 22 U/L (5-37); Blood Urea Nitrogen 17 mg/dL (9-16); Calcium 9.5 mg/dL (8.4-10.2); Carbon Dioxide 23 mmol/L (22-29); Chloride 109 mmol/L (96-108); Creatinine Clr Calc Pharmacy 70.8; Estimated Glomerular Filt Rate 59; Magnesium 2.1 mg/dL (1.6-2.6); Potassium 3.7 mmol/L (3.3-5.1); Sodium 141 mmol/L (135-145); Total Protein 7.4 g/dL (6.5-8.0)
[2025-09-30 14:23] VITALS: O2SAT 99
[2025-09-30 14:39] LABS: NT Pro B Type Natriuretic Pept 105.6 pg/mL (<300)
[2025-09-30 14:41] LABS: Troponin-I High Sensitivity < 2.7 ng/L (<3.5-35.0)
[2025-09-30 15:59] VITALS: BP 106/66; PULSE 70; RESP 14; TEMP 36.9; O2SAT 99
--- OUTSIDE RECORDS SUMMARY | 2025-09-30 18:56 | XMS_ITS | Encounter Summary ---
Author Organization [employer] Address [address] [place] [address] Care Team Providers Care Brake Operator Helper Name Role Phone Tor Crews MD Primary Care Provide r Reason for Visit * Reason Onset Date Comments Nurse Triage 09/29/2025 Encounter Details Date Type Department Care Team ([facility] st Contact Info) Description 09/29/2025 Telephone [facility] [address] [place], [place] [phone] Tor Crews MD [address] [place] [address] Nurse Triage Social History Tobacco Use Types Packs/Day Years Used Date Smoking Tobacco: Some Days Cigarettes Passive Smoke Exposure: Current Smokeless Tobacco: Current Alcohol Use Standard Drinks/Week Comments Yes 0 [...] encounter Miscellaneous Notes * Telephone Encounter - Verona Elizabeth RN - 09/29/2025 3:50 PM EST called pt to triage, spoke to pt through [employer]. pt states seen walk in on 09/15 and treated for strep throat. pt completed the antibiotics but states no effect. pt states congestion, harsh cough, sore throat, chills, sweats, and fatigue. pt has not taken temperature recently but thinkshe has had some fevers. advised home care: rest, fluids, warm saltwater gargles, lozenges, OTC as needed and call back if worsening or new concerns. given appt tomorrow with red team provider at 11:00 for exam. pt understands and agrees with plan. Protocol Used: Sore Throat (Adult) Protocol-Based Disposition: Strep Test Only Visit Today or Tomorrow Positive Triage Question: * Sore throat with cough/cold symptoms present > 5 days * All higher-acuity triage questions were negative. Care Advice Discussed: * Reassurance and Education - Sore Throat * Sore Throat * Soft Diet * Drink Plenty of Liquids * Pain and Fever Medicines * Pain and Fever Medicines - Extra Notes and Warnings * Contagiousness * Reasons To Call Back - Sore throat is the main symptom and it lasts longer than 48 hours - Sore throat is mild but lasts longer than 4 days - Fever lasts longer than 3 days - You become worse * Telephone Encounter - Juan A Boland - 09/29/2025 2:59 PM EST Symptoms: Swallowing Difficulty, Cough Outcome: Schedule an urgent appointment (within 1 hour) or talk to a nurse or provider soon Reason: Trouble drinking The caller accepted this outcome. Contact pt at [phone] documented in this encounter Plan of Treatment Upcoming Encounters Date Type Department Care Team (Late st Contact Info) Description 12/13/2025 10:30 AM EST Office Visit [facility] [address] [place] [phone] Tor Crews MD [address] [place] [address] documented as of this encounter Goals Goal Patient Goal Type Associated Problems Recent Progress Patient-Stated? Author Help patients manage their type 2 diabetes Care Plan Help patients manage their type 2 diabetes No Italo Hobson MA Weekly blood pressure task Care Plan Weekly blood pressure task No HobsonItalo peters MA Help patients manage their type 2 diabetes Care Plan Help patients manage their type 2 diabetes No HobsonItalo peters [place] Patient has chronic kidney disease Care Plan Patient has chronic kidney disease No HobsonItalo peters MA Weekly blood pressure task Care Plan Weekly blood pressure task No HobsonElviauyomy, [place] Patient has chronic kidney disease Care Plan Patient has chronic kidney disease No HobsonElvia petersuyomy, [place] Weekly blood pressure task Care Plan Weekly blood pressure task No Hilario Smith Weekly blood pressure task Care Plan Weekly blood pressure task No Hilario Smith Patient has chronic kidney disease Care Plan Patient has chronic kidney disease No Hilario Smith Patient has chronic kidney disease Care Plan Patient has chronic kidney disease No Hilario Smith Weekly blood pressure task Care Plan Weekly blood pressure task No Leon Wallis MA Weekly blood pressure task Care Plan Weekly blood pressure task No Leon Wallis MA Patient has chronic kidney disease Care Plan Patient has chronic kidney disease No Leon Wallis [place] Patient has chronic kidney disease Care Plan Patient has chronic kidney disease No Leon Wallis MA Weekly blood pressure task Care Plan [...] blood pressure task No Juan A Moran Patient has chronic kidney disease Care Plan Patient has chronic kidney disease No Juan A Moran Patient has chronic kidney disease Care Plan Patient has chronic kidney disease No Juan A Moran Weekly blood pressure [...] chronic kidney disease No Porsche Spencer MA documented as of this encounter Visit Diagnoses Not on filedocumented in this encounter Additional Health Concerns Active [...] 09/29/2025 Patient has chronic kidney disease 09/29/2025 Assessment Noted Time PHQ-9 Depression Total Score: 21 025 2:25 PM EST documented as of this encounter Care Teams Brake Operator Helper Relationship Specialty Start Date End Date Tor Crews MD [address] [place] [phone] PCP - General Internal Medicine 07/21/14 documented as of this encounter
--- OUTSIDE RECORDS SUMMARY | 2025-09-30 18:56 | XMS_ITS | Encounter Summary ---
Author Organization [email or web address] Address [address] [place] [address] Care Team Providers Care Financial Rep Name Role Phone Tor Crews MD Primary Care Provide r Reason for Visit * Reason Comments Med Refill Encounter Details Date Type Department Care Team ([facility] st Contact Info) Description 12/19/2023 Refill [facility] [address] [place], [place] [phone] Sinai Sesay MD [address] [place] [address] Social History Tobacco Use Types Packs/Day Years [...] Description 12/13/2025 10:30 AM EST Office Visit [facility] [address] [place] [address] Tor Crews MD [address] [place] [id number] documented as of this encounter Visit Diagnoses Not on filedocumented in this encounter Additional Health Concerns Assessment Noted Time PHQ-9 Depression Total Score: 4 03/04/20 23 2:58 PM EDT documented as of this encounter Care Teams Financial Rep Relationship Specialty Start Date End Date Tor Crews MD [address] [place] [id number] PCP - General Internal Medicine 07/21/14 documented as of this encounter
--- OUTSIDE RECORDS SUMMARY | 2025-09-30 18:57 | XMS_ITS | Clinical Summary ---
Author Organization [employer] Address [address] [place] [address] Care Team Providers Care Operator Electronic Warfare Name Role Phone Tor Crews MD Primary [...] 2 diabetes mellitus without complication, unspecified whether mcc insulin use take 1 tablet by oral route every [...] disease, with long-term current use of insulin (HCC) Use to test blood sugar 3 times daily 100 each 12 09/12/20 25 12:58 PM EST 024 2024 Active Blood Glucose Monitoring Suppl (FreeStyle Weston Lite) w/Device kitIndications:T ype 2 diabetes mellitus with stage 3b chronic kidney disease, with long-term current use of insulin (HCC) Use to test blood sugar 3 times daily 1 kit Active Vaporizer miscIndications: Viral URI,Mild intermittent asthma with acute exacerbation Dx asthma, viral uri 1 each 024 Active albuterol (2.5 MG/3ML) 0.083% nebulizer [...] prior dental procedure 12 capsule 025 Active TRUEplus Lancets 33G miscIndications: Type 2 diabetes mellitus with stage 3b chronic kidney disease, with long-term current use of insulin ([facility]) USE DIRECTED TO TEST BLOOD SUGAR THREE TIMES DAILY 100 each 11 09/12/20 25 12:58 PM EST Active Pentips Generic Pen [place] 32G X 4 MM misc USE DIRECTED WITH novolog 100 each 5 Active UltiCare Insulin Syringe 30G X 1/2 0.5 ML misc USE ONCE DAILY DIRECTED 90 each 3 Active spironolactone (Aldactone) 25 MG tablet TAKE 1/2 TABLET BY MOUTH EVERY MORNING 45 tablet 3 Active loperamide (Imodium) 2 MG capsule PLEASE SEE ATTACHED FOR DETAILED DIRECTIONS Active cholecalciferol (Vitamin D-3) 1.25 MG (10633 UT) capsule Take 1 capsule by mouth every 7 (seven) days. Active Aspirin Low Dose 81 MG EC tabletIndication s:Cardiomyopathy , unspecified type (CMS/HCC) ([facility]) TAKE 1 TABLET BY MOUTH EVERY EVENING 90 tablet 3 09/12/20 12:58 PM EST 025 Active Lantus 100 UNIT/ML injectionIndicat ions:Type 2 diabetes mellitus without complication, with long-term current use of insulin ([facility]) INJECT 46 UNITS SUBCUTANEOUSLY ONCE DAILY AT BEDTIME 15 mL 3 09/12/20 12:58 PM EST 025 Active omeprazole (PriLOSEC) [address] capsuleIndicatio ns:Gastroesophag eal reflux disease without esophagitis TAKE 1 CAPSULE BY MOUTH EVERY DAY BEFORE MEALS 90 capsule 2 025 Active Ozempic, 2 MG/DOSE, 8 MG/3ML solution pen-injectorIndi cations:Type 2 diabetes mellitus with stage 3b chronic kidney disease, with long-term current use of insulin ([facility]) Inject 2 MG SUBCUTANEOUSLY EVERY 7 DAYS IN THE ABDOMEN, THIGHS OR UPPER ARM. ROTATE INJECTION SITES. 3 mL 6 09/12/20 12:58 PM EST 025 Active fenofibrate (Tricor) 54 MG tabletIndication s:Hypertriglycer idemia TAKE 1 TABLET BY MOUTH EVERY MORNING 90 tablet 1 09/12/20 12:58 PM EST 09/09/2 025 Active NovoLOG FLEXPEN 100 UNIT/ML penIndications:T ype 2 diabetes mellitus without complication, with long-term current use of insulin (HCC) INJECT PER SLIDING SCALE FOR BLOOD SUGAR < 150 = no USE, 151-200 = 3 UNITS, 201-250 = 5 UNITS, 251-300 = 8 UNITS, 301-350 = 10 UNITS, 351-400 = 12 UNITS, > 400 = 15 UNITS AND CALL DOCTOR 15 mL 3 Active predniSONE (Deltasone) 20 MG tablet Take 3 tabs PO daily x 3 days then take 2 tabs PO daily x 3 days then take 1 tab PO daily x 3 days 18 tablet Active guaiFENesin (Mucinex) 600 MG 12 hr tablet Take 1 tablet (600 mg) by mouth if needed in the morning and at bedtime for cough or congestion. Do not crush, chew, or split. 30 tablet 025 2025 Active benzonatate (Tessalon) 100 MG capsule Take 1 capsule (100 mg) by mouth if needed in the morning, at noon, and at bedtime for cough for up to 7 days. Do not crush or chew. 20 capsule 025 2024 Active cetirizine (ZyrTEC) 10 MG tablet Take 1 tablet (10 mg) by mouth if needed each day for rhinitis. 30 tablet 1 025 2025 Active fluticasone (Flonase) 50 MCG/ACT nasal sprayIndications :Seasonal allergies Administer 2 sprays into each nostril if needed each day for rhinitis. Shake gently. Before first use, prime pump. After use, clean tip and replace cap. 16 g 1 Active pseudoephedrine (Sudafed) 30 MG tablet Take 1 tablet (30 mg) by mouth every 8 (eight) hours if needed for congestion. 30 tablet 025 2025 Active predniSONE (Deltasone) 20 MG tabletIndication s:Viral URI,Mild intermittent asthma with acute exacerbation 2 tabs po daily for 5 days 10 tablet 024 2024 Discontinued(T herapy completed) azithromycin (Zithromax) 250 MG tablet TAKE 2 TABLETS BY MOUTH TODAY, THEN TAKE 1 TABLET DAILY FOR 4 DAYS DIRECTED 024 2024 Discontinued(T herapy completed) glyBURIDE (Diabeta) 5 MG tabletIndication s:Type 2 diabetes mellitus with stage 3b chronic kidney disease, with long-term current use of insulin (HCC) TAKE 1 TABLET BY MOUTH WITH BREAKFAST 30 tablet 2 025 2024 Discontinued(T herapy completed) NovoLOG FLEXPEN 100 UNIT/ML penIndications:T ype 2 diabetes mellitus without complication, with long-term current use of insulin (HCC) INJECT PER SLIDING SCALE FOR BLOOD SUGAR < 150 = no USE, 151-200 = 3 UNITS, 201-250 = 5 UNITS, 251-300 = 8 UNITS, 301-350 = 10 UNITS, 351-400 = 12 UNITS, > 400 = 15 UNITS AND CALL DOCTOR 15 mL 3 025 2024 Discontinued fluticasone (Flonase) 50 MCG/ACT nasal sprayIndications :Seasonal allergies INSTILL 2 SPRAYS IN EACH NOSTRIL ONCE DAILY 16 g 3 025 2024 Discontinued(R eorder (will not trigger notification to Pharmacy)) acetaminophen (Tylenol Extra Strength) 500 MG tabletIndication s:Strep pharyngitis Take 2 tablets (1,000 mg) by mouth every 6 (six) hours if needed for mild pain for up to 10 days. 30 tablet 09/21/20 25 10:42 AM EST 025 2024 amoxicillin (Amoxil) 500 MG capsuleIndicatio ns:Strep pharyngitis Take 1 capsule (500 mg) by mouth 2 times daily for 10 days. 20 capsule 09/16/20 25 1:11 PM EST 025 2024 Discontinued(T herapy completed) Active Problems Problem Noted Date Diagnosed Date Elevated blood pressure read ing in office with diagnosis of hypertension 09/16/2025 Strep pharyngitis 09/16/2025 Flu-like symptoms 09/16/2025 Laryngitis, acute 09/16/2025 Hospital discharge follow-up 11/18/2024 Assessment & Plan (11/18/2024 1:37 PM EST): Patient is here for a HDF He was admitted to [facility] from 10/21-10/25/2024 After [...] See image in chart. -Cleaned and used Enola cary to close laceration. -ER precautions discussed. [...] lead fail ure 03/23/2024 Assessment & Plan (09/01/2025 2:27 PM EST): Patient under the care of Dr. Nielson, last seen 08/24/2025 Assessment & Plan (03/23/2024 11:08 AM EDT): [...] a HDF after a recent admission to [facility] for a syncopal [...] of Carvedilol, Enteresto and Spironoloactone. Followed by sales executive who recommended to keep all his medications [...] of right knee 05/13/2023 Assessment & Plan (09/01/2025 2:36 PM EST): Pt here for a follow [...] by Ortho 09/13/2024 received a steroid injection. Will refer back for injection Assessment & Plan (09/21/2024 12:59 PM EST): [...] titers were negative, HIV (neg 12/2012 at [facility]) , SAMEER (neg 01/03/2013 at [facility] ) , ADRIÁN level was normal. Pt is s/p ICD placement in 2008 ([place] [employer]) Last cardiology note 03/14/2025 recommended to Continue current neurohormonal modulation with Entresto, Daily weight monitoring and avoidance of salt loading . Continue aggressive blood pressure control. Encouraged to continue to participate in physical activity as tolerated and participate in weight loss program. He has done extremely well with medical management despite no CLIP BOLTER AND WRAPPER. He was advised to continue to follow at [facility] for heart transplant evaluation.on annual basis. Had stress test at [facility] 09/14/[address] Rich ECHO [...] titers were negative, HIV (neg 12/2012 at [facility]) , SAMEER (neg 01/03/2013 at [facility] ) , ADRIÁN level was normal. Pt is s/p ICD placement in 2008 ([place] [employer]) Follows at the HF clinic , last seen 07/2022 Dr. Nielson recommended to Continue current neurohormonal modulation with Entresto, Daily weight monitoring and avoidance of salt loading . Continue aggressive blood pressure control. Encouraged to continue to participate in physical activity as tolerated and participate in weight loss program. He has done extremely well with medical management despite no CLIP BOLTER AND WRAPPER. He was advised to continue to follow at [facility] for heart transplant evaluation.on annual basis. Last seen 07/14/2024 He was last seen by Dr Nielson 12/01/2024 He is on: Toprol X: 12.5 mg One tablet Daily Entresto 24-26 mg BID And Lasix 40 mg once Daily Had stress test at [facility] 09/14/[address] Layla VILLASENOR 08/05/2024 [...] titers were negative, HIV (neg 12/2012 at [facility]) , SAMEER (neg 01/03/2013 at [facility] ) , ADRIÁN level was normal. Pt is s/p ICD placement in 2008 ([place]) Follows at the HF clinic , last seen 07/2022 Dr. Nielson recommended to Continue current neurohormonal modulation with Entresto, Daily weight monitoring and avoidance of salt loading . Continue aggressive blood pressure control. Encouraged to continue to participate in physical activity as tolerated and participate in weight loss program. He has done extremely well with medical management despite no CLIP BOLTER [employer] WRAPPER. He was advised to continue to follow at [facility] for heart transplant evaluation.on annual basis. Last seen 07/14/2024 He was last seen by Dr Nielson 02/25/2024 He is on: Toprol X: 12.5 mg One tablet Daily Entresto 24-26 mg BID And Lasix 40 mg once Daily Had stress test at [facility] 09/14/[address] Layla VILLASENOR 08/05/2024 [...] titers were negative, HIV (neg 12/2012 at [facility]) , SAMEER (neg 01/03/2013 at [facility] ) , ADRIÁN level was normal. Pt is s/p ICD placement in 2008 ([place] [employer]) Follows at the HF clinic , [...] extremely well with medical management despite no CLIP [employer]OLTER [employer] WRAPPER. He was advised to continue to follow at [facility] for heart transplant evaluation.on annual basis. Last seen 07/14/2024 He was last seen by Dr Nielson 02/25/2024 His Carvedilol was replaced with Toprol X: 12.5 mg One tablet Daily His Entresto was lowered to 24-26 mg BID His Lasix was lowered to 40 mg once Daily by Dr Rich at [facility] Assessment & Plan (03/23/2024 11:09 AM EDT): Patient is here for a f/u He has non-ischemic cardiomyopathy diagnosed in 2008 (etiology ? NANO ? ETOH relate ? Pt gives a Hx of over 20 years of very heavy drinking. Basic blood work to r/o other etiologies: TSH 06/09/2013 was wnl, , Lyme titers were negative, HIV (neg 12/2012 at [facility]) , SAMEER (neg 01/03/2013 at [facility] ) , ADRIÁN level was normal. Pt is s/p ICD placement in 2008 ([place] [employer]) Follows at the HF clinic , [...] extremely well with medical management despite no [employer]IP [employer]OL[employer] WR[employer]PER. He was advised to continue to follow with Dr Rivas at [facility] for heart transplant evaluation.on annual [...] titers were negative, HIV (neg 12/2012 at [facility]) , SAMEER (neg 01/03/2013 at [facility] ) , ADRIÁN level was normal. Pt is s/p ICD placement in 2008 ([place]) Follows at the HF clinic , last [...] extremely well with medical management despite no CLIP BOLTER AND WRAPPER. Dr Nielson recommended Follow-up echocardiogram in 1 month's time. He was advised to continue to follow with Dr Rivas at [facility] for heart transplant evaluation.on annual [...] titers were negative, HIV (neg 12/2012 at [facility]) , SAMEER (neg 01/03/2013 at [facility] ) , ADRIÁN level was normal. Pt is s/p ICD placement in 2008 ([place]) Follows at the HF clinic , last seen 07/2022 Heart failure with reduced ejection fraction with much improved LV ejection fraction 40-45% with much improved symptoms with NYHA class 1 symptoms. Last seen by Dr. Nielson 05/12/2023 He was advised to continue to follow with Dr Rivas at [facility] for heart transplant evaluation.on annual [...] extremely well with medical management despite no CLIP BOLTER AND WRAPPER. Dr Nielson recommended Follow-up echocardiogram in 1 [...] titers were negative, HIV (neg 12/2012 at [facility]) , SAMEER (neg 01/03/2013 at [facility] ) , ADRIÁN level was normal. last EF 20-25% 2017 Pt is s/p ICD placement in 2008 ([place]) Follows at the HF clinic , last seen 07/2022 Pt tells me he has a f/u with Dr. Nielson as well He was advised to continue to keep appointment with Dr Rivas at [facility] for heart transplant evaluation. CKD stage 3 secondary to diabetes 12/26/2015 Assessment & Plan (09/01/2025 2:29 PM EST): Under the care of Nephrology, last seen 06/22/2025 Dr. Bonilla his news analyst Lab Results Component Value Date GLUCOSE 239 (H) 12/28/2024 NA 140 06/17/2025 K 3.9 06/17/2025 CO2 23 06/17/2025 CL 104 06/17/2025 BUN 23 (H) 06/17/2025 CREATININE 1.75 (H) 06/17/2025 Assessment & Plan (12/07/2024 11:25 AM EST): Under the care of Nephrology, last seen 12/01/2024 Dr. Bonilla his news analyst Lab Results Component Value Date GLUCOSE 340 (H) 10/16/2024 NA 140 11/23/2024 K 4.3 11/23/2024 CO2 24 11/23/2024 CL 110 (H) 11/23/2024 BUN 17 (H) 11/23/2024 CREATININE 1.56 (H) 11/23/2024 Assessment & Plan (11/18/2024 1:39 PM EST): Under the care of Nephrology, last seen 09/03/2024 Dr. Bonilla his news analyst Lab Results Component Value Date GLUCOSE 340 (H) 10/16/2024 NA 137 10/16/2024 K 3.8 10/16/2024 CO2 20 (L) 10/16/2024 CL 107 10/16/2024 BUN 30 (H) 10/16/2024 CREATININE 1.65 (H) 10/16/2024 Will repeat Assessment & Plan (09/21/2024 12:58 PM EST): Under the care of Nephrology, last seen 09/03/2024 Dr. Chad campbell news analyst Assessment & Plan (07/27/2024 11:47 AM EDT): Under the care of Nephrology, last seen 03/05/2024 Dr. Chad campbell news analyst Assessment & Plan (03/23/2024 11:01 AM EDT): Under the care of Nephrology, last seen 03/05/2024 Dr. Chad campbell news analyst Assessment & Plan (11/25/2023 12:08 PM EST): Under the care of Nephrology, last seen 07/16/2023. Dr. Chad campbell news analyst Assessment & Plan (06/10/2023 9:25 AM EDT): Under the care of Nephrology, last seen 12/2022. I sent a message via [employer] to Dr. Bonilla his news analyst letting him know I am starting [...] low fat low cholesterol diet, Referred to [facility]. DC Atorvastatin . Start Fenofibrate Follow up [...] use of insulin 04/13/2014 Assessment & Plan (09/01/2025 2:40 PM EST): Pt here for a f/u DM unchanged Hgb A1c 09/01/2025: 8.5 from 8.7 Pt did not bring his glucometer Microalbumin level 12/25/2021 was 5 Eye exam: 07/02/2024 Dr Canseco Currently on a regimen of: Lantus 46 units sc qpm, Humalog sliding scale, Jardiance 25 mg, Ozempic 2 mg once a week, Metformin 500 mg po BID ( was restarted by Tree Trimming Line Technician in [place]). (Trulicity stopped due to c/o nausea and vomiting.) Plan: Continue current regimen, no changes until he brings his glucometer 3 month follow up Foot check risk of zero Pt reports compliance with Asa 81 mg po daily Pt advised to: adhere to diabetic diet check your blood sugars regularly check your feet on a daily basis Assessment & Plan (05/17/2025 11:58 AM EDT): [...] mg po BID ( was restarted by Tree Tr[employer] Line Technician in [place]). He stopped taking the Trulicity due to [...] mg po BID ( was restarted by Tree Trimming Line Technician in [place]). He stopped taking the Trulicity due to [...] a week His Metformin was restarted by Tree Tr[employer] Line Technician in [place] 500 mg po BID once a day [...] a week His Metformin was restarted by Tree Trimming Line Technician in [place] 500 mg po BID once a day [...] 25 mg, His Metformin was restarted by Tree Trimming Line Technician in [place] 500 mg po BID once a day [...] 25 mg, His Metformin was restarted by Tree Trimming Line Technician in [place] 500 mg po BID once a day [...] 1.5 mg His Metformin was restarted by Tree Tr[employer] Line Technician in [place] 500 mg po BID Plan: No changes [...] basis Depressive disorder 08/25/2013 Assessment & Plan (09/01/2025 2:41 PM EST): Pt currently seeing a psychotherapist her name is Jamari Yousif and Dr Stahl at [facility] He used to see Dr. Colon but stopped due to lack of transportation His biggest complaint was lack of sleep. I have agreed to prescribe trazodone 100 mg po q hs prn. Assessment & Plan (05/13/2023 8:57 AM EDT): Pt currently seeing a psychotherapist her name is Aj at [facility] . He used to see Dr. Colon but stopped due to lack of transportation His biggest complaint was lack of sleep. I have agreed to prescribe trazodone 100 mg po q hs prn. Obstructive sleep apnea syndrome 01/21/2013 Assessment & Plan (09/01/2025 2:28 PM EST): Diagnosis with mod severe NANO Under the care of evidence specialist [facility] at [facility] 07/01/2025 Recommended Cpap Assessment & Plan (03/23/2024 10:59 AM EDT): Under the care of evidence specialist (Dr Rucker). Seen at the Sleep Center 01/27/2024 Awaiting Cpap Assessment & Plan (11/25/2023 11:58 AM EST): Sleep study done on 03/08/2013 confirmed the diagnosis of moderately severe NANO. Pt reported compliance with Cpap machine And is now under the care of evidence specialist (Dr Rucker). Awaiting Cpap Assessment & Plan (05/13/2023 8:57 AM EDT): Sleep study done on 03/08/2013 confirmed the diagnosis of moderately severe NANO. Pt reported compliance with Cpap machine And is now under the care of evidence specialist (Dr Rucker). He told me his Cpap was no longer working and needed a new one He was referred back for Sleep study, to sleep clinic. Appointment scheduled for 05/16/2023 Assessment & Plan (03/04/2023 3:01 PM EDT): Sleep study done on 03/08/2013 confirmed the diagnosis of moderately severe NANO. Pt reported compliance with Cpap machine And is now under the care of evidence specialist (Dr Rucker). He tells me his Cpap is no longer working and needs a new one Plan: Sleep study, will refer to sleep clinic Cardiomyopathy 01/11/2013 Gastroesophageal reflux disease 01/11/2013 Resolved Problems Problem Noted Date Diagnosed Date Resolved Date Ingrowing nail, right great toe 10/06/2017 11/25/2023 Assessment & Plan (07/15/2023 3:25 PM EDT): Pt tells me the wind turbine service technician requested authorization from PCP to take care of his ingrown toe nail Plan: Podiatry referral Congestive heart failure 01/21/2013 Encounters Date Type Department Care Team Description 09/30/2025 11:00 AM EST Office Visit [facility] MEDICINE [address] [place] [phone] Mahsa Johnson DO COVID-19 (Primary Dx); Sore throat; Seasonal allergies 09/30/2025 Telephone [facility] MEDICINE [address] [place] [phone] Tor Crews MD Ambulance Transport 09/30/2025 Travel 09/29/2025 Telephone [facility] MEDICINE [address] [place] [address] Tor Crews MD Nurse Triage 09/28/2025 Refill [facility] [address] [place] [address] Tor Crews MD Type 2 diabetes mellitus without complication, with long-term current use of insulin ([facility]) 09/16/2025 Telephone [facility] MEDICINE [address] [place] [address] Anne Glass, MANSOOR 09/16/2025 Telephone [facility] MEDICINE [address] [place] [address] Anne Glass, RN 09/15/2025 2:00 PM EST Office Visit [facility] WALK[facility]IN CENTER [address] [place] [address] Senia Silver FNP Strep pharyngitis (Primary Dx); Flu-like symptoms; Elevated blood pressure reading in office with diagnosis of hypertension; Laryngitis, acute 09/15/2025 Travel 09/14/2025 9:00 AM EST Office Visit [facility] OPTOMETRY [address] [place] [address] Ajith, Nohemi, OD Diabetes type 2, no ocular involvement (HCC) (Primary Dx); Chorioretinal scar, right; Tortuous retinal veins; Dry eyes; Presbyopia 09/14/2025 Travel 09/13/2025 Telephone [facility] MEDICINE [address] [place] [phone] Tor Crews MD November09/01/2025 2:15 PM EST Office Visit [facility] MEDICINE [address] [place] [phone] Tor Crews MD Type 2 diabetes mellitus with stage 3b chronic kidney disease, with long-term current use of insulin (HCC) (Primary Dx); Failure of implantable cardioverter-defibrillator (ICD) lead, subsequent encounter; Obstructive sleep apnea syndrome; CKD stage 3 secondary to diabetes (HCC); Depressive disorder; Primary osteoarthritis of right knee; Erectile dysfunction, unspecified erectile dysfunction type; Encounter for immunization 09/01/2025 Travel 08/31/2025 Telephone [facility] WALK[facility] [address] [place] [phone] Saundra Wong MA 08/25/2025 Patient Outreach [facility] [address] [place], [place] [phone] Tor Crews MD Pre-visit Planning (SDOH negative, Tobacco screening negative. ) 08/21/2025 Refill [facility] MEDICINE [address] [place] [phone] Tor Crews MD Type 2 diabetes mellitus with stage 3b chronic kidney disease, with long-term current use of insulin (HCC) 08/10/2025 Orders Only [facility] MEDICINE [address] [place] [phone] Tor Crews MD Type 2 diabetes mellitus with stage 3b chronic kidney disease, with long-term current use of insulin (HCC) (Primary Dx) 08/04/2025 Telephone [facility] MEDICINE [address] [place] [phone] Tor Crews MD Referral 07/03/2025 Refill [facility] MED & PEDS [address] [place], [place] [phone] Arcelia Watkins ANP Hypertriglyceridemia 07/01/2025 Refill [facility] MEDICINE [address] [place] [address] Tor Crews MD Type 2 diabetes mellitus with stage 3b chronic kidney disease, with long-term current use of insulin ([facility]) from Last 3 Months Immunizations Immunization Administration Dates Next Due Hep B, adult 09/21/2024 Influenza injectable quadriv alent IIV4 with preservative 10/26/2015 Influenza injectable quadrivalent preservative f ree 08/21/2023 Influenza, Split (incl. purified surface antigen ) 09/06/2014,08/25/2013 Influenza, seasonal, injectable, preservative fr ee 09/01/2025,09/21/2024 Pneumococcal Conjugate PCV 20 04/17/2023 Pneumococcal Polysaccharide [...] Mass Index 31.01 09/30/2025 11:10 AM EST Plan of Treatment Upcoming Encounters Date Type Department Care Team (Late st Contact Info) Description 12/13/2025 10:30 AM EST Office Visit [facility] MEDICINE [address] [place] [phone] Tor Crews MD [address] [place] [address] Health Maintenance Due Date Last Done Comments CT Colonography 1971 FIT DNA/Cologuard 1971 FIT 1971 FOBT 1971 HIV Screening 1971 Sigmoidoscopy 1971 Diabetes: Foot Exam 1981 Hepatitis C Screening 1989 RSV Patients and Patients Aged 60 years or older (1 - Risk 50-74 years 1-dose series) 2021 Lipid Panel 09/09/2024 09/09/2023, 08/27, 06/04/2023, Additional history exists Hepatitis B Vaccines (2 of 3 - 19+ 3-dose series) 10/19/2024 09/21/2024 COVID-19 Vaccine ( - 2024- season) 2025 11/20/2021, 01/10/2021, 12/20/2020 Dental X-Ray: Bitewings 11/30/2025 11/29/19, 09/20/2024, 04/18/2021 Diabetes: Hemoglobin A1C 12/02/2025 025, 05/17/2025, 12/07/2024, Additional history exists Dental Oral Exam 12/03/2025 06/01/2025, 12/2024, 04/18/2021 Dental Prophylaxis 12/03/2025 06/01/2025, 11/29/2024 Alcohol/Substance Use Screening 12/07/2025 12/07/2024 Disability Screening 02/10/2026 02/10/2025 Depression Monitoring 03/01/2026 09/01/2025, 025 SDOH Screening 08/25/2026 08/25/2025 Tobacco Screening 09/30/2026 09/30/2025 Eye Exam 09/14/2027 09/14/2025, 08/27, 09/14/2025, Additional history exists Dental X-Ray: Full Mouth 11/30/2027 025, 07/10/2023, 04/18/2021 Colonoscopy 01/26/2032 01/25/2022 Colorectal Cancer Screening 01/26/2032 DTaP/Tdap/Td Vaccines (3 - Td or Tdap) 10/16/2034 10/16/2024, 10/26/2015 Pneumococcal Vaccine: 50+ Years Completed 04/17/2023, 02/03/2012 Zoster Vaccines Completed 04/17/2023, 02/13/2023 Influenza Vaccine Completed 09/01/2025, , 08/21/2023, Additional history exists HIB Vaccines Aged Out [...] on patient's age to complete this topic Goals Goal Patient Goal Type Associated Problems Recent Progress Patient-Stated? Author Help patients manage their type 2 diabetes Care Plan Help patients manage their type 2 diabetes No Italo Hobson MA Weekly blood pressure task Care Plan Weekly blood pressure task No Italo Hobson MA Help patients manage their type 2 diabetes Care Plan Help patients manage their type 2 diabetes No Italo Hobson MA Patient has chronic kidney disease Care Plan Patient has chronic kidney disease No Italo Hobson MA Weekly blood pressure task Care Plan Weekly blood pressure task No HobsonElvia petersuyomy [place] Patient has chronic kidney disease Care Plan Patient has chronic kidney disease No Italo Hobson MA Weekly blood pressure [...] Care Plan Weekly blood pressure task No Nabil FrancoisparMaris mongeo MA Weekly blood pressure task Care Plan Weekly blood pressure task No Ferrer Haas [place], [place] Patient has chronic kidney disease Care Plan Patient has chronic kidney disease No Nabil Francoisparsaleem [place], [place] Patient has chronic kidney disease Care Plan Patient has chronic kidney disease No Nabil FrancoisparMaris mongeo, [place] Weekly blood pressure task Care Plan [...] chronic kidney disease No Martine Tavera RN Procedures Procedure Name Priority Date/Time Associated Diagnosis Comments POC HENRY ID NOW STREP A Routine 09/30/2025 11:29 AM EST Sore throat POCT INFLUENZA A (ID NOW RAPID MOLECULAR) Routine 09/30/2025 11:29 AM EST COVID-19 POCT INFLUENZA B (ID NOW RAPID MOLECULAR) Routine 09/30/2025 11:29 AM EST COVID-19 POCT RAPID COVID ANTIGEN Routine 09/30/2025 11:28 AM EST COVID-19 POC HENRY ID NOW STREP A Routine 09/15/2025 2:52 PM EST Flu-like symptoms POCT RAPID COVID ANTIGEN Routine 09/15/2025 2:51 PM EST Flu-like symptoms POCT INFLUENZA A (ID NOW RAPID MOLECULAR) Routine 09/15/2025 2:51 PM EST Flu-like symptoms POCT INFLUENZA B (ID NOW RAPID MOLECULAR) Routine 09/15/2025 2:51 PM EST Flu-like symptoms POCT GLYCATED HEMOGLOBIN, TOTAL Routine 09/01/2025 2:23 PM EST Type 2 diabetes mellitus with stage 3b chronic kidney disease, with long-term current use of insulin (HCC) POCT GLUCOSE Routine 09/01/2025 2:23 PM EST Type 2 diabetes mellitus with stage 3b chronic kidney disease, with long-term current use of insulin (HCC) PROPHYLAXIS - ADULT Routine 06/01/2025 1 0:00 AM EDT PERIODIC ORAL EVALUATION - ESTABLISHED PATIENT Routine 06/01/2025 10:00 AM EDT Encounter for dental examination Teeth missing Dental plaque INTRAORAL - COMPLETE SERIES OF RADIOGRAPHIC IMAGES Routine 11/29/2024 10:00 AM EST LIPID PANEL WITH REFLEX TO DIRECT LDL Routine 09/09/2023 7:57 AM EST Hypertriglyceridemi a HM COLONOSCOPY Routine 01/25/2022 from Last 3 Months or Most Recently Relevant to Health Maintenance Results * POCT Rapid Influenza B HENRY ID NOW (09/30/2025 11:29 AM EST) Only the most recent of2 resultswithin the time period is included. Influenza B Negative Negative, Indeterminate [facility] Swab 09/30/2025 11:2 9 AM EST Mahsa Johnson DO POINT OF CARE TEST ENTER/JAQUELINE T ORDERABLES Final Result Performing Organization Address [facility]/ZIP Co de Phone Number [facility] [address] [place] [phone] * POCT Rapid Influenza A HENRY ID NOW (09/30/2025 11:29 AM EST) Only the most recent of2 resultswithin the time period is included. Influenza A Negative Negative, Indeterminate [facility] Swab 09/30/2025 11:2 9 AM EST Mahsa Kingnancy DO POINT OF CARE TEST ENTER/JAQUELINE T ORDERABLES Final Result Performing Organization Address [facility] de Phone Number [facility] [address] [place] [phone] * POCT Rapid Strep A HENRY ID NOW (09/30/2025 11:29 AM EST) Only the most recent of2 resultswithin the time period is included. [facility] Rapid Strep A Screen Negative Negative, None Detected Swab 09/30/2025 11:2 9 AM EST Mahsa Alex DO POINT OF CARE TEST ENTER/JAQUELINE T ORDERABLES Final Result * (ABNORMAL) POCT Rapid Covid-19 BinaxNOW (09/30/2025 11:28 AM EST) Only the most recent of2 resultswithin the time period is included. [facility] Rapid COVID Ag Positive Swab 09/30/2025 11:2 8 AM EST us Mahsa Kingnancy DO POINT OF CARE TEST ENTER/JAQUELINE T ORDERABLES Final Result * (ABNORMAL) POCT Hgb A1c (09/01/2025 2:23 PM EST) [facility] Hemoglobin A1C 8.5(A) 4.0 - 5.7 % QC Media Lot # [id number] Lot# Expiration Date 512, Blood 09/01/2025 2:23 PM EST us Tor Bañuelos MD POINT OF CARE TEST EN TER/EDIT ORDERABLES Final Result * POCT Glucose (09/01/2025 2:23 PM EST) Glucose Blood, POC 193 60 - 200 mg/dL QC Media Lot # [id number] Lot# Expiration Date 3,026 Blood Capillary blood specimen / Unknown 09/01/2025 2:23 PM EST us Tor Bañuelos MD POINT OF CARE TEST EN TER/EDIT ORDERABLES Final Result * (ABNORMAL) Lipid Panel with Reflex to Direct LDL (09/09/2023 7:57 AM EST) Triglycerides 448(H) <150 mg/dL [facility] Comment:Desirable Triglyceri de: less than 150 mg/dLBorderline High Triglyceride 150-199 mg/dLHigh Triglyceride: 200-499 mg/dLVery High Triglyceride: greater than or equal to 5OO mg/dL Cholesterol 204(H) <200 mg/dL [facility] Comment:Desirable Cholestero l: less than 200 mg/dLBorderline High Cholesterol: 200-239 mg/dLHigh Cholesterol: greater than 239 mg/dL LDL Cholesterol Calculated TNP <100 mg/dL [facility] Comment:Unable to calculate the LDL. The formula of Friedwald,Shepherd, and Pearl is only valid if the triglycerides areless than 400 mg/dl. HDL Cholesterol 34(L) >40 mg/dL [facility] Comment:Desirable HDL: great er than 40 mg/dL Note: This HDL assay may give artificially low results in patients with liver disease. Blood 09/09/2023 7:57 AM EST 09/09/2023 7:57 AM EST us Tor Bañuelos MD LAB BLOOD ORDERABLES Final Result [facility] [address] [place] [address] [phone] * Hm Colonoscopy (01/25/2022) Colonoscopy Normal Normal 01/25/2022 Narrative Radha Alves - 01/25/2022 2:56 PM EDT Recommended 10 year follow up ( see scanned notes) us Historical Provider HEALTH MAINTENANCE Edited Result - Final from Last 3 Months or Most Recently Relevant to Health Maintenance Additional Health Concerns Active Problems Noted Date [...] 09/30/2025 Patient has chronic kidney disease 09/30/2025 Insurance [facility] < [address] [place] [id number] Care Teams Operator Electronic Warfare Relationship Specialty Start Date End Date Tor Crews MD [address] [place] [phone] PCP - General Internal Medicine 07/21/14
--- OUTSIDE RECORDS SUMMARY | 2025-09-30 18:57 | XMS_ITS | Encounter Summary ---
Author Organization [employer] Address [address] [place] [address] Care Team Providers Care Gasoline Truck Operator Name Role Phone Tor Crews MD Primary Care Provide r Encounter Details Date Type Department Care Team (Late st Contact Info) Description 10/30/2022 Orders Only [facility] [address] [place], [place] [phone] Mahsa Bustillos LPN Social History Tobacco Use [...] Description 12/13/2025 10:30 AM EST Office Visit [facility] [address] [place] [phone] Tor Crews MD [address] [place] [address] documented as of this encounter Visit Diagnoses Not on filedocumented in this encounter Care Teams Gasoline Truck Operator Relationship Specialty Start Date End Date Tor Crews MD [address] [place] [phone] PCP - General Internal Medicine 07/21/14 documented as of this encounter
--- OUTSIDE RECORDS SUMMARY | 2025-09-30 18:57 | XMS_ITS | Encounter Summary ---
Author Organization [employer] Address [address] [place] [address] Care Team Providers Care Bike Technician Name Role Phone Tor Crews MD Primary Care Provide r Reason for Visit * Reason Comments Med Refill Encounter Details Date Type Department Care Team ([facility] st Contact Info) Description 11/18/2024 Refill [facility] [address] [place], [place] [phone] Tor Crews MD [address] [place], [place] [phone] Type 2 diabetes mellitus without complications (CMS/HCC) [...] 10:30 AM EST Office Visit [facility] [address] [place] [address] Tor Crews MD [address] [place] [address] documented as of this encounter Visit Diagnoses Diagnosis Type 2 diabetes mellitus without complications (HCC) documented in this encounter Additional Health Concerns Assessment Noted Time PHQ-9 Depression Total Score: 4 03/04/20 23 2:58 PM EDT documented as of this encounter Care Teams Bike Technician Relationship Specialty Start Date End Date Tor Crews MD [address] [place] [address] PCP - General Internal Medicine 07/21/14 documented as of this encounter
--- OUTSIDE RECORDS SUMMARY | 2025-09-30 18:57 | XMS_ITS | Encounter Summary ---
Author Organization [employer] Address [address] [place] [address] Care Team Providers Care Director Software Name Role Phone Tor Crews MD Primary Care Provide r Encounter Details Date Type Department Care Team (Latest Contact Info) Description 04/26/2021 Abstract [facility] Dental, Provider, DDS Social History [...] Description 12/13/2025 10:30 AM EST Office Visit [facility] [address] [place] [address] Tor Crews MD [address] [place] [phone] documented as of this encounter Visit Diagnoses Not on filedocumented in this encounter Care Teams Director Software Relationship Specialty Start Date End Date Tor Crews MD [address] [place] [address] [phone] PCP - General Internal Medicine 07/21/14 documented as of this encounter
--- OUTSIDE RECORDS SUMMARY | 2025-09-30 18:57 | XMS_ITS | Clinical Summary ---
Author Organization [facility] Address [address] [place] [address] [facility] [place] [phone] Phone Care Team Providers Care Emt Dispatcher Name Role Phone Tor Guzman MD Primary [...] (6 to 49 Years) Discontinued 04/17/2023 Insurance [facility] ([id number]) [facility] ([id number]) Care Teams Emt Dispatcher Relationship Specialty Start Date End Date Tor Guzman MD PCP - General 11/06/20
--- OUTSIDE RECORDS SUMMARY | 2025-09-30 18:57 | XMS_ITS | Encounter Summary ---
Author Organization [employer] Address [address] 7[address] [place] [address] Care Team Providers Care Sexer Name Role Phone Tor Crews MD Primary Care Provide r Encounter Details Date Type Department Care Team ([facility] Contact Info) Description 11/28/2022 Abstract [facility] [address] [place] [phone] Tor Crews MD [address] [place] [address] [phone] Social History Tobacco Use Types Packs/Day Years [...] Upcoming Encounters Date Type Department Care Team ([facility] Contact Info) Description 12/13/2025 10:30 AM EST Office Visit [facility] [address] [place] [phone] Tor Crews MD [address] [place], [place] [phone] documented as of this encounter Visit Diagnoses Not on filedocumented in this encounter Care Teams Sexer Relationship Specialty Start Date End Date Tor Crews MD [address] [place] [address] PCP - General Internal Medicine 07/21/14 documented as of this encounter
--- OUTSIDE RECORDS SUMMARY | 2025-09-30 18:57 | XMS_ITS | Encounter Summary ---
Author Organization [employer] Address [address] [facility] [address] 7t [place] [address] Care Team Providers Care Manager Account Management Name Role Phone Tor Crews MD Primary Care Provide r Encounter Details Date Type Department Care Team (Late Contact Info) Description 12/17/2022 Orders Only [facility] [address] [place], [place] [phone] Ally Rodríguez LPN Social History Tobacco Use [...] Description 12/13/2025 10:30 AM EST Office Visit [facility] [address] [place] [address] Tor Crews MD [address] [place] [address] documented as of this encounter Visit Diagnoses Not on filedocumented in this encounter Care Teams Manager Account Management Relationship Specialty Start Date End Date Tor Crews MD [address] [place] [address] [phone] PCP - General Internal Medicine 07/21/14 documented as of this encounter
--- OUTSIDE RECORDS SUMMARY | 2025-09-30 18:57 | XMS_ITS | Encounter Summary ---
Author Organization [employer] Address [address] [place] [address] Care Team Providers Care Engine Buildup Mechanic Name Role Phone Tor Crews MD Primary Care Provide r Reason for Visit * Reason Comments Med Refill Encounter Details Date Type Department Care Team ([facility] st Contact Info) Description 03/17/2025 Refill [facility] [address] [place], [place] [phone] Sinai Sesay MD [address] [place] [address] Social History Tobacco Use Types Packs/Day Years [...] Description 12/13/2025 10:30 AM EST Office Visit [facility] [address] [place] [address] Tor Crews MD [address] [place] [phone] documented as of this encounter Visit Diagnoses Not on filedocumented in this encounter Additional Health Concerns Assessment Noted Time PHQ-9 Depression Total Score: 4 03/04/20 23 2:58 PM EDT documented as of this encounter Care Teams Engine Buildup Mechanic Relationship Specialty Start Date End Date Tor Crews MD [address] [place] [phone] PCP - General Internal Medicine 07/21/14 documented as of this encounter
--- OUTSIDE RECORDS SUMMARY | 2025-09-30 18:57 | XMS_ITS | Encounter Summary ---
Author Organization [employer] Address [address] [place] [address] Care Team Providers Care Mold Forms Builder Name Role Phone Tor Crews MD Primary Care Provide r Encounter Details Date Type Department Care Team ([facility] st Contact Info) Description 01/19/2025 Telephone [facility] [address] [place], [place] [phone] Tor Crews MD [address] [place], [place] [phone] Social History Tobacco Use Types Packs/Day Years Used Date Smoking Tobacco: Former Cigarettes Passive Smoke Exposure: Past Smokeless Tobacco: Never Alcohol Use Standard Drinks/Week Comments Yes 0 (1 standard drink = 0.6 oz pur e alcohol) Depression Answer Date Recorded Patient Health Questionnaire-9 Score 4 03/04/2023 Housing Stability Answer Date Recorded What is your housing situation today? I have jessbrandon su 03/23/[address] you [...] t he electric, gas, oil or water [employer] threatened to shut off services in your [...] Description 12/13/2025 10:30 AM EST Office Visit [facility] [address] [place] [address] Tor Crews MD [address] [place] [address] documented as of this encounter Visit Diagnoses Not on filedocumented in this encounter Additional Health Concerns Assessment Noted Time PHQ-9 Depression Total Score: 4 03/04/20 23 2:58 PM EDT documented as of this encounter Care Teams Mold Forms Builder Relationship Specialty Start Date End Date Tor Crews MD [address] [place] [phone] PCP - General Internal Medicine 07/21/14 documented as of this encounter
--- OUTSIDE RECORDS SUMMARY | 2025-09-30 18:57 | XMS_ITS | Encounter Summary ---
Author Organization [employer] Address [address] [place] [address] Care Team Providers Care Arborist Name Role Phone Tor Crews MD Primary Care Provide r Reason for Visit * Reason Onset Date Comments Hospital Follow-up 10/26/2024 Encounter Details Date Type Department Care Team ([facility] st Contact Info) Description 10/26/2024 Telephone [facility] [address] [place], [place] [phone] Tor Crews MD [address] [place], [place] [phone] Hospital Follow-up Social History Tobacco Use Types [...] from pt requesting a HDF appt. Hospital: [facility] Date of admission: 10/20/2024 Discharge date: 10/25/2024 Diagnosed: Asthma *Send message to [place] Clinical Care Coordinators documented in this encounter Plan of Treatment Upcoming Encounters Date Type Department Care Team (Late st Contact Info) Description 12/13/2025 10:30 AM EST Office Visit [facility] [address] [place] [address] Tor Crews MD [address] [place] [address] documented as of this encounter Visit Diagnoses Not on filedocumented in this encounter Additional Health Concerns Assessment Noted Time PHQ-9 Depression Total Score: 4 03/04/20 23 2:58 PM EDT documented as of this encounter Care Teams Arborist Relationship Specialty Start Date End Date Tor Crews MD [address] [place] [address] PCP - General Internal Medicine 07/21/14 documented as of this encounter
--- OUTSIDE RECORDS SUMMARY | 2025-09-30 18:57 | XMS_ITS | Encounter Summary ---
Author Organization [employer] Address [address] [place] [address] Care Team Providers Care Coating Operator Name Role Phone Tor Crews MD Primary Care Provide r Reason for Visit * Reason Onset Date Comments triage 01/13/2023 Encounter Details Date Type Department Care Team ([facility] st Contact Info) Description 01/13/2023 Telephone [facility] [address] [place], [place] [phone] Tor Crews MD [address] [place], [place] [phone] triage Social History Tobacco Use Types Packs/Day [...] 01/13/2023 1:24 PM EDT Triage call with [employer] ID [id number] Pt reports upper abdominal pain since last [...] light yellow/clear. Advised Pt to come to [facility] today and Pt agreed. Home [...] Description 12/13/2025 10:30 AM EST Office Visit [facility] [address] [place] [address] Tor Crews MD [address] [place] [address] documented as of this encounter Visit Diagnoses Not on filedocumented in this encounter Care Teams Coating Operator Relationship Specialty Start Date End Date Tor Crews MD [address] [place] [address] PCP - General Internal Medicine 07/21/14 documented as of this encounter
--- OUTSIDE RECORDS SUMMARY | 2025-09-30 18:57 | XMS_ITS | Encounter Summary ---
Author Organization [employer] Address [address] [facility] [address] [place] [address] Care Team Providers Care Chartered Accountant Name Role Phone Tor Crews MD Primary Care Provide r Reason for Visit * Reason Onset Date Comments Referral 08/04/2025 Encounter Details Date Type Department Care Team ([facility] st Contact Info) Description 08/04/2025 Telephone [facility] [address] [place], [place] [phone] Tor Crews MD [address] [place], [place] [phone] Referral Social History Tobacco Use Types Packs/Day Years [...] AM EDT documented as of this encounter Functional Status * Over the past 2 weeks, how often have you been bothered by any of the following problems? Question Answer Date of Assessment Author Patient Health Questionnaire -2 Score 6 09/01/2025 2:25 PM Carissa Presley MA * Little interest or pleasure in doing things Answer Date of Assessment Author Nearly every day 09/01/2025 2:25 PM Carissa Hernandez [place], [place] * Feeling down, depressed, or hopeless Answer Date of Assessment Author Nearly every day 09/01/2025 2:25 PM Carissa Hernandez [place], [place] * Trouble falling or staying asleep, or sleeping too much Answer Date of Assessment Author Nearly every day 09/01/2025 2:25 PM Carisas Hernandez [place], [place] * Feeling tired or having little energy Answer Date of Assessment Author Nearly every day 09/01/2025 2:25 PM Carissa Hernandez [place], [place] * Poor appetite or overeating Answer Date of Assessment Author Not at all 09/01/2025 2:25 PM Carissa Gilbert MA * Feeling bad about yourself - or that you are a failure or have let yourself or your family down Answer Date of Assessment Author Nearly every day 09/01/2025 2:25 PM Carissa Hernandez [place], [place] * Trouble concentrating on things, such as reading the newspaper or watching television Answer Date of Assessment Author Nearly every day 09/01/2025 2:25 PM Carissa Hernandez [place], [place] * Moving or speaking so slowly that other people could have noticed? Or the opposite - being so fidgety or restless that you have been moving around a lot more than usual. Answer Date of Assessment Author Nearly every day 09/01/2025 2:25 PM Carissa Hernandez [place], [place] * Thoughts that you would be better off or hurting yourself in some way Answer Date of Assessment Author Not at all 09/01/2025 2:25 PM Carissa Gilbert MA * Patient Health Questionnaire-9 Score Answer Date of Assessment Author 21 09/01/2025 2:25 PM Carissa Gilbert MA * How difficult have these problems made it for you to do your work, take care of things at home, or get along with other people? Answer Date of Assessment Author Extremely difficult 09/01/2025 2:25 PM Carissa Presley MA * Over the last 2 weeks, how often have you been bothered by any of the following problems? Question Answer Date of Assessment Author Feeling nervous, anxious, or on edge 3 09/01/2025 2:25 PM Carissa Presley MA Not being able to stop or control worrying 3 09/01/2025 2:25 PM Carissa Presley MA Worrying too much about different things 3 09/01/2025 2:25 PM Carissa Presley MA Trouble relaxing 3 09/01/2025 2:25 PM Carissa Toth MA Being so restless that it is hard to sit still 3 09/01/2025 2:25 PM Carissa Presley MA Becoming easily annoyed or irritable 3 09/01/2025 2:25 PM Carissa Presley MA Feeling afraid as if somethi ng awful might happen 3 09/01/2025 2:25 PM Carissa Presley MA MARGUERITE-7 Total Score 21 09/01/2025 2:25 PM Carissa Presley MA documented as of this encounter Miscellaneous Notes * Telephone Encounter - Maria Luisa Cabezas RN - 08/09/2025 4:25 PM EDT TC placed back to the pt who would like to be referred to Martín Prince DPM, at [address] [place] [address] in [place]. This is the [facility] for [facility] * Telephone Encounter - Maria Luisa Cabezas RN - 08/09/2025 11:23 AM EDT TC placed to the pt with [facility] parts interpreter #[id number] in regard to request for referral to podiatry. The pt states that he has been seen by a inside steward/stewardess, Dr. Little back in January for ongoing pain of the right foot. The pt confirms that the ball of his right foot is still present and the pain is around a 6/10. Pt was given treatment options by Dr. Little including stretching exercises and insoles. Pt did follow up several times with this inside steward/stewardess and had further treatment including kenalog injections. The pt declined physical therapy. Pt does not feel satisfied with the POC presented by Dr. Little and was hoping that he might be referred elsewhere. RN informed the pt that there is a limited number of p odiatrist's in the area but the request will be sent to PCP for review. * Telephone Encounter - Anatoly Badillo - 08/04/2025 3:22 PM EDT Tc from pt calling in regards to message prior also requesting a referral for [facility],[address] [place] [address] [address] [facility] [id number]. * Telephone Encounter - Juan A Boland - 08/04/2025 2:50 PM EDT Tc from pt requesting a referral to orthopedic surgeon at [address] [facility] [id number] Contact pt at [phone] (japanese) documented in this encounter Plan of Treatment Upcoming Encounters Date Type Department Care Team (Late st Contact Info) Description 12/13/2025 10:30 AM EST Office Visit [facility] [address] [place] [address] Tor Crews MD [address] [place] [address] documented as of this encounter Visit Diagnoses Not on filedocumented in this encounter Additional Health Concerns Assessment Noted Time PHQ-9 Depression Total Score: 4 03/04/20 23 2:58 PM EDT documented as of this encounter Care Teams Chartered Accountant Relationship Specialty Start Date End Date Tor Cresw MD [address] [place] [address] PCP - General Internal Medicine 07/21/14 documented as of this encounter
--- OUTSIDE RECORDS SUMMARY | 2025-09-30 18:57 | XMS_ITS | Encounter Summary ---
Author Organization [email or web address] Address [address] [facility] [address] 7[address] [place] [address] Care Team Providers Care Peer Educator Name Role Phone Tor Crews MD Primary Care Provide r Reason for Visit * Reason Comments Med Refill Encounter Details Date Type Department Care Team ([facility] st Contact Info) Description 08/07/2023 Refill [facility] [address] [place], [place] [phone] Tor Crews MD 230 [place], [place] [phone] Hypertriglyceridemia Social History Tobacco Use Types Packs/Day Years Used Date Smoking Tobacco: Some Days Cigarettes Passive Smoke Exposure: Current Smokeless Tobacco: Never Alcohol Use Standard Drinks/Week Comments Yes 0 (1 standard drink = 0.6 oz pur e alcohol) Depression Answer Date Recorded Patient Health Questionnaire-9 Score 4 03/04/2023 Housing Stability Answer Date Recorded What is your housing situation today? I have jess su 08/11/[address] you [...] Description 12/13/2025 10:30 AM EST Office Visit [facility] [address] [place] [address] Tor Crews MD [address] [place] [phone] documented as of this encounter Visit Diagnoses Diagnosis Hypertriglyceridemia Pure hyperglyceridemia documented in this encounter Additional Health Concerns Assessment Noted Time PHQ-9 Depression Total Score: 4 03/04/20 23 2:58 PM EDT documented as of this encounter Care Teams Peer Educator Relationship Specialty Start Date End Date Tor Crews MD [address] [place] [id number] PCP - General Internal Medicine 07/21/14 documented as of this encounter
--- OUTSIDE RECORDS SUMMARY | 2025-09-30 18:57 | XMS_ITS | Encounter Summary ---
Author Organization [employer] Address [address] [facility] [address] 7t [place] [address] Care Team Providers Care Assistant Bookkeeper Name Role Phone Tor Crews MD Primary Care Provide r Encounter Details Date Type Department Care Team (Late st Contact Info) Description 10/15/2024 Orders Only [facility] [address] [place], [place] [phone] Arcelia Watkins ANP 230 [place], [place] [phone] Social History Tobacco Use Types Packs/Day Years [...] Description 12/13/2025 10:30 AM EST Office Visit [facility] [address] [place] [address] Tor Crews MD 230 [place] [address] documented as of this encounter Visit Diagnoses Not on filedocumented in this encounter Additional Health Concerns Assessment Noted Time PHQ-9 Depression Total Score: 4 03/04/20 23 2:58 PM EDT documented as of this encounter Care Teams Assistant Bookkeeper Relationship Specialty Start Date End Date Tor Crews MD 230 [place] [address] PCP - General Internal Medicine 07/21/14 documented as of this encounter
--- OUTSIDE RECORDS SUMMARY | 2025-09-30 18:57 | XMS_ITS | Clinical Summary ---
Author Organization [address] [place] [address] Address [address] [place] [address] Phone Care Team Providers Care Tour Bus Driver/Guide Name Role Phone Tor Villela MD Primary Care Provi pepe Allergies No known active allergies Medications No known medications Social History Tobacco Use Types Packs/Day Years [...] 04/07/2025 10:20 AM EDT Plan of Treatment Health Maintenance Due Date Last Done Comments Colorectal Cancer Screening: Colonoscopy 1971 Diabetes: Annual Foot Exam 1981 Diabetes: Annual Retina Eye Exam 1981 RSV Immunization Adult Patients (1 - Risk 50-74 years 1-dose series) 2021 Hepatitis B Vaccines (2 of 3 - 19+ 3-dose series) 10/19/2024 09/21/2024 Depression Screening 10/27/2024 Cholesterol Screening (Lipid Panel) 11/26/2024 HIV Screening 11/26/2024 Hepatitis C Screening [...] fective 2019-Present) Name:CARMINA GODINEZ Relation to Subscriber:Self Name:Camrina Godinez Payer ID:[id number] Group ID:[id number] Type:Not on file Address: [address] [place] [address] Care Teams Tour Bus Driver/Guide Relationship Specialty Start Date End Date Tor Villela MD [address] [place] [address] [place] [address] PCP - General 07/29/24
--- OUTSIDE RECORDS SUMMARY | 2025-09-30 18:57 | XMS_ITS | Encounter Summary ---
Author Organization [employer] Address [address] [facility] [address] 7[address] [place] [address] Care Team Providers Care Electric Motor Tester Assembler Name Role Phone Tor Crews MD Primary Care Provide r Encounter Details Date Type Department Care Team (Latest Contact Info) Description 09/30/2025 Travel Social History Tobacco Use Types Packs/Day [...] Description 12/13/2025 10:30 AM EST Office Visit [facility] 230 [place] [address] Tor Crews MD 230 [place] [address] documented as of this encounter Goals Goal Patient Goal Type Associated Problems Recent Progress Patient-Stated? Author Help patients manage their type 2 diabetes Care Plan Help patients manage their type 2 diabetes No HobsonItalo peters [place] Weekly blood pressure task Care Plan Weekly blood pressure task No Hobson [place], [place] Help patients manage their type 2 diabetes Care Plan Help patients manage their type 2 diabetes No HobsonItalo peters [place] Patient has chronic kidney disease Care Plan Patient has chronic kidney disease No HobsonElviauyomy [place] Weekly blood pressure task Care Plan Weekly blood pressure task No Hobson [place] Patient has chronic kidney disease Care Plan Patient has chronic kidney disease No HobsonGurinder petersomy [place] Weekly blood pressure task Care Plan Weekly blood pressure task No Hilario Smith Weekly blood pressure task Care Plan Weekly blood pressure task No Tomasic Hilario Patient has chronic kidney disease Care Plan Patient has chronic kidney disease No Tomanthony Hilario Patient has chronic kidney disease Care Plan Patient has chronic kidney disease No Hilario Smith Weekly blood pressure task Care Plan Weekly blood pressure task No Ferrer HaasMariso [place] Weekly blood pressure task Care Plan Weekly blood pressure task No Ferrer HaasMariso [place] Patient has chronic kidney disease Care Plan Patient has chronic kidney disease No Ferrer HaasLeon [place] Patient has chronic kidney disease Care Plan Patient has chronic kidney disease No Ferrer Haas [place], [place] Weekly blood pressure task Care Plan [...] chronic kidney disease No Martine Tavera RN documented as of this encounter Visit Diagnoses [...] documented as of this encounter Care Teams Electric Motor Tester Assembler Relationship Specialty Start Date End Date Tor Crews MD [address] [place] [id number] PCP - General Internal Medicine 07/21/14 documented as of this encounter
--- OUTSIDE RECORDS SUMMARY | 2025-09-30 18:57 | XMS_ITS | Encounter Summary ---
Author Organization [employer] Address [address] [facility] [address] 7t [place] [address] Care Team Providers Care Retail Support Manager Name Role Phone Tor Crews MD Primary Care Provide r Reason for Visit * Reason Onset Date Comments Ambulance Transport 09/30/2025 Encounter Details Date Type Department Care Team ([facility] st Contact Info) Description 09/30/2025 Telephone [facility] [address] [place], [place] [phone] Tor Crews MD 230 [place] [address] Ambulance Transport Social History Tobacco Use Types Packs/Day Years [...] encounter Miscellaneous Notes * Telephone Encounter - Martine Tavera RN - 09/30/2025 12:22 PM EST EMT's arrived, patient being transported to [facility]. * Telephone Encounter - Martine Tavera RN - 09/30/2025 12:[address] Johnson requested an ambulance to be called to transport patient to [facility]. Patient positive for COVID, experiencing dizziness, headache and is hypotensive (90/60). Patient had strep x2 weeks agoand did not improve with treatment. Patient returned to clinic today and is now COVID positive. to call in expect to [facility] RN called ambulance who is in route. RN printed facesheet, medication list and notified FD and security. documented in this encounter Plan of Treatment Upcoming Encounters Date Type Department Care Team (Late st Contact Info) Description 12/13/2025 10:30 AM EST Office Visit [facility] [address] [place] [address] Tor Crews MD [address] [place], [place] [phone] documented as of this encounter Goals Goal Patient Goal Type Associated Problems Recent Progress Patient-Stated? Author Help patients manage their type 2 diabetes Care Plan Help patients manage their type 2 diabetes No HobsonItalo peters [place] Weekly blood pressure task Care Plan Weekly blood pressure task No Hobson, [facility], [place] Help patients manage their type 2 diabetes Care Plan Help patients manage their type 2 diabetes No HobsonGurinder petersomy [place] Patient has chronic kidney disease Care Plan Patient has chronic kidney disease No HobsonElvia petersuyomy [place] Weekly blood pressure task Care Plan Weekly blood pressure task No HobsonElvia[place], [place] Patient has chronic kidney disease Care Plan Patient has chronic kidney disease No HobsonGurinder [place], [place] Weekly blood pressure task Care Plan Weekly [...] Care Plan Weekly blood pressure task No Badger, [place] Weekly blood pressure task Care Plan Weekly blood pressure task No [place], [place] Patient has chronic kidney disease Care Plan Patient has chronic kidney disease No [place], [place] Patient has chronic kidney disease Care Plan Patient has chronic kidney disease No [place], [place] Weekly blood pressure task Care Plan [...] documented as of this encounter Care Teams Retail Support Manager Relationship Specialty Start Date End Date Tor Crews MD [address] [place] [id number] PCP - General Internal Medicine 07/21/14 documented as of this encounter
--- OUTSIDE RECORDS SUMMARY | 2025-09-30 18:57 | XMS_ITS | Encounter Summary ---
Author Organization [employer] Address [address] [facility] [facility] [address] 7[address] [place] [address] Care Team Providers Care Rayon Coner Name Role Phone Tor Crews MD Primary Care Provide r Encounter Details Date Type Department Care Team ([facility] Contact Info) Description 02/27/2023 Abstract [facility] [address] [place] [phone] Tor Crews MD [address] [place], [place] [phone] Social History Tobacco Use Types Packs/Day Years [...] Upcoming Encounters Date Type Department Care Team ([facility] Contact Info) Description 12/13/2025 10:30 AM EST Office Visit [facility] 230 [place] [address] Tor Crews MD [address] [place], [place] [phone] documented as of this encounter Procedures Procedure Name Priority Date/Time Associated Diagnosis Comments COLONOSCOPY Routine 01/25/2022 documented in this encounter Results * Colonoscopy (01/25/2022) Colonoscopy Normal Normal 01/25/2022 Narrative Joselyn Radha - 01/25/2022 2:56 PM EDT Recommended 10 year follow up ( see scanned notes) us Historical Provider [employer]IN[employer] Edited Result - Final documented in this encounter Visit Diagnoses Not on filedocumented in this encounter Care Teams Rayon Coner Relationship Specialty Start Date End Date Tor Crews MD [address] [place] [id number] PCP - General Internal Medicine 07/21/14 documented as of this encounter
--- OUTSIDE RECORDS SUMMARY | 2025-09-30 18:57 | XMS_ITS | Encounter Summary ---
Author Organization [employer] Address [address] [facility] 7t [place] [address] Care Team Providers Care Condenser Setter Name Role Phone Tor Crews MD Primary Care Provide r Reason for Visit * Reason Comments Med Refill Encounter Details Date Type Department Care Team (Late Contact Info) Description 05/23/2023 Refill [facility] [address] [place] [phone] Tor Crews MD [address] [place], [place] [phone] Acute pain of right knee Social History [...] Department Care Team (Late Contact Info) Description 12/13/2025 10:30 AM EST Office Visit [facility] 230 [place], [place] [phone] Tor Crews MD [address] [place], [place] [phone] documented as of this encounter Visit Diagnoses Diagnosis Acute pain of right knee documented in this encounter Additional Health Concerns Assessment Noted Time PHQ-9 Depression Total Score: 4 03/04/20 23 2:58 PM EDT documented as of this encounter Care Teams Condenser Setter Relationship Specialty Start Date End Date Tor Crews MD [address] [place] [address] PCP - General Internal Medicine 07/21/14 documented as of this encounter
--- OUTSIDE RECORDS SUMMARY | 2025-09-30 18:57 | XMS_ITS | Encounter Summary ---
Author Organization [employer] Address [address] [facility] [address] [place] [address] Care Team Providers Care Forensic Investigator Name Role Phone Tor Crews MD Primary Care Provide r Reason for Visit * Reason Comments Med Refill Encounter Details Date Type Department Care Team ([facility] st Contact Info) Description 09/28/2025 Refill [facility] [address] [place], [place] [phone] Tor Crews MD 230 [place], [place] [phone] Type 2 diabetes mellitus without complication, with long-term current use of insulin (HCC) Social History Tobacco Use Types Packs/Day Years [...] Description 12/13/2025 10:30 AM EST Office Visit [facility] [address] [place] [address] Tor Crews MD [address] [place] [address] documented as of this encounter Goals Goal Patient Goal Type Associated Problems Recent Progress Patient-Stated? Author Help patients manage their type 2 diabetes Care Plan Help patients manage their type 2 diabetes No tIalo Hobson [place] Weekly blood pressure task Care [...] Plan Patient has chronic kidney disease No Elvia Hobsonuysharyn [place] Weekly blood pressure task Care Plan [...] Plan Weekly blood pressure task No Nabil Haas [place], [place] Weekly blood pressure task Care Plan Weekly blood pressure task No Nabil Haas [place], [place] Patient has chronic kidney disease Care Plan Patient has chronic kidney disease No Nabil Haas [place], [place] Patient has chronic kidney disease Care Plan Patient has chronic kidney disease No Nabil Haas [place], [place] Weekly blood pressure task Care Plan [...] chronic kidney disease No Anne Glass RN documented as of this encounter Visit Diagnoses Diagnosis Type 2 diabetes mellitus without complication, with long-term current use of insulin (HCC) documented in this encounter Additional Health [...] 09/16/2025 Patient has chronic kidney disease 09/16/2025 Assessment Noted Time PHQ-9 Depression Total Score: 21 025 2:25 PM EST documented as of this encounter Care Teams Forensic Investigator Relationship Specialty Start Date End Date Tor Crews MD [address] [place] [id number] PCP - General Internal Medicine 07/21/14 documented as of this encounter
== END 2025-09-30 16:01 | disposition home or self-care (01) ==
PROVIDERS: Physician Assistant Medical; Emergency Provider Emergency Medicine; PCP Internal Medicine
DX: U07.1 COVID-19 (principal); J40 Bronchitis, not specified as acute or chronic; R09.89 Other specified symptoms and signs involving the circulatory and respiratory systems; R05.9 Cough, unspecified; Z79.899 Other long term (current) drug therapy
CPT/HCPCS: 36415; 71045; 80053; 83735; 83880; 84484; 85025; 93005; 99285

== ENCOUNTER → 2025-09-30 13:06 | Outpatient (BNV) | payer OTHER, SELFPAY | PROVIDERS: Emergency Provider Emergency Medicine; PCP Internal Medicine; Visit Provider Internal Medicine | DX: R94.31 Abnormal electrocardiogram [ECG] [EKG] (principal); Z95.0 Presence of cardiac pacemaker | CPT/HCPCS: 93010 ==

== ENCOUNTER → 2025-09-30 13:14 | Outpatient (BNV) | payer OTHER, SELFPAY | PROVIDERS: Emergency Provider Emergency Medicine; Visit Provider Radiology Diagnostic Radiology | DX: R05.9 Cough, unspecified (principal) | CPT/HCPCS: 71045 ==

== ENCOUNTER 2025-10-03 09:04 | Outpatient (REF) | payer OTHER, SELFPAY ==
[2025-10-03 10:24] LABS: Anion Gap 17 (12-20); Blood Urea Nitrogen 26 mg/dL (9-16); Carbon Dioxide 22 mmol/L (22-29); Chloride 104 mmol/L (96-108); Estimated Glomerular Filt Rate 48; Potassium 3.7 mmol/L (3.3-5.1); Sodium 139 mmol/L (135-145)
== END 2025-10-03 09:05 | disposition home or self-care (01) ==
LOC: HO.LAB 09:04
PROVIDERS: PCP Internal Medicine; Visit Provider Internal Medicine Nephrology
DX: I12.9 Hypertensive chronic kidney disease with stage 1 through stage 4 chronic kidney disease, or unspecified chronic kidney disease (principal); N18.32 Chronic kidney disease, stage 3b
CPT/HCPCS: 36415; 80051; 82565; 84520

== ENCOUNTER 2025-10-05 09:37 | Outpatient (AMB) | payer OTHER, SELFPAY ==
--- NOTE | 2025-10-05 09:53 | HO.NEPHOV_ITS ---
Vital Signs 10/05/25 09:55 Height 5 ft 7 in Weight 193 lb 6 oz BMI 30.3 BP 90/60 Blood Pressure Location Lt brachial Position Sitting Pulse 79 Pulse Source Pulse Oximeter Pulse Oximetry (%) 96 Oxygen Delivery Method Room Air Intake Visit Reasons: 3mon f/u w/labs-Conf Clinical Research Director Required: Yes Clinical Research Director Language: Home Office Claims Examiner Services: Clinical Research Director Offered & Declined ([facility] Clinical Research Director services refused ) Accompanied by: Significant Other Allergies Seasonal Allergies Allergy (Unknown, Verified 10/05/25 09:54) Unknown HPI Comments Details: Ian was seen in follow-up his chronic kidney disease. He has cardiomyopathy. He is followed up in [place] for his heart issues. His diabetic control is better. He is now compliant with medications. His was physically present during the encounter. He denies any chest pain, shortness of breath, nausea, vomiting, diarrhea, pedal edema or dizziness. He denies taking nonsteroidal anti-inflammatory medications. His recent serum creatinine is close to baseline [facility] Medical History ICD (implantable cardioverter-defibrillator) lead failure Biventricular ICD (implantable cardioverter-defibrillator) in place Nonischemic cardiomyopathy GERD (gastroesophageal reflux disease) Asthma NANO (obstructive sleep apnea) Obesity due to excess calories HLD (hyperlipidemia) Type 2 diabetes mellitus with chronic kidney disease Heart failure with reduced ejection fraction Implantable cardioverter-defibrillator lead failure High cholesterol Diabetes HTN (hypertension) Pacemaker Surgical History S/P ICD (internal cardiac defibrillator) procedure History of tonsillectomy Hx of cardiac cath Hx of transesophageal echocardiography (DAWN) for monitoring History of permanent cardiac pacemaker placement (~2008) History of circumcision Family History Father HTN (hypertension) Diabetes CVD (cardiovascular disease) Hypercholesterolemia Mother Hypercholesterolemia HTN (hypertension) Diabetes Social History Household Members: Spouse Household Members Other:: SO:Thu Housing: Apartment Do you presently have visiting nurse or other home services: No Alcohol intake: current Alcohol intake frequency: 3 or more drinks per day Patient Tobacco Use Status: Never used Tobacco Tobacco use type: Cigarette service: No Review of Systems Const All systems reviewed & are unremarkable except as noted in HPI and below Physical Exam Vital Signs: Last Vital Signs Pulse 79 10/05/25 09:55 BP 90/60 10/05/25 09:55 Pulse Ox 96 10/05/25 09:55 Oxygen Delivery Method Room Air 10/05/25 09:55 BMI result Body Mass Index 30.3 Const General: comfortable and no acute distress Orientation/consciousness: patient oriented x3 HEENT Head: Yes normocephalic Mouth: Normal oral and palatal mucosa present Eyes EOM: EOMs intact bilaterally Neck Neck: Yes supple Resp Auscultation: clear to auscultation bilaterally Cardio Jugular venous distension: no JVD Rate: regular rate GI Palpation (GI): Soft to palpation Auscultation: normal bowel sounds General: Yes no CVA tenderness Back/Spine/Pelvis Back: no CVA tenderness Skin General skin exam: no rashes or lesions noted Neuro General: patient oriented x3 and moves all extremities Extrem General: Yes no pedal edema Results Reviewed Nephrology Results: Hgb, (14.0-18.0) 14.5 g/dl 09/30/25 WBC, (4.8-10.8) 5.0 X10*3/uL 09/30/25 Plt Count, (160-400) 211 X10*3/uL 09/30/25 Sodium, (135-145) 139 mmol/L 10/03/25 Potassium, (3.3-5.1) 3.7 mmol/L 10/03/25 Chloride, (96-108) 104 mmol/L 10/03/25 Carbon Dioxide, (22-29) 22 mmol/L 10/03/25 BUN, (9-16) 26 mg/dL H 10/03/25 Creatinine, (0.5-1.4) 1.51 mg/dL H 10/03/25 Calcium, (8.4-10.2) 9.5 mg/dL 09/30/25 Assessment & Plan Assessment & Plan (1) CKD stage G3b/A1, GFR 30-44 and albumin creatinine ratio <30 mg/g: Code(s): N18.32 - Chronic kidney disease, stage 3b Category: Medical (2) HTN (hypertension): Code(s): I10 - Essential (primary) hypertension Category: Medical Qualifiers: Hypertension type: primary hypertension Qualified Code(s): I10 - Essential (primary) hypertension Plan Ian has chronic kidney disease & the serum creatinine is close to baseline now. His blood sugar control is better. He is on Jardiance as well as Entresto. He is followed up closely in [place] for his cardiomyopathy. If his cardiac function and renal function decline he will need evaluation for heart and kidney transplantation. I reiterated the need for compliance with me dications and keeping his blood sugar at goal. He is also on spironolactone as well with serum K being normal . His volume status is optimal. He should avoid nonsteroidal anti-inflammatory medications. All his and his 's questions were answered. Follow-up blood work was ordered. Follow-up appointment was given Orders: Orders Creatinine 3 Months N18.32 - Chronic kidney disease, stage 3b Protein Creatinine Ratio, Ur 3 Months N18.32 - Chronic kidney disease, stage 3b Electrolytes 3 Months N18.32 - Chronic kidney disease, stage 3b Blood Urea Nitrogen 3 Months N18.32 - Chronic kidney disease, stage 3b Coding Level of Care Code Est Pt Level 4 (96596) Diagnoses CKD stage G3b/A1, GFR 30-44 and albumin creatinine ratio <30 mg/g N18.32 Primary hypertension I10 Hypertension type: primary hypertension
[2025-10-05 09:55] VITALS: BP 90/60; PULSE 79; O2SAT 96; BMI 30.3
== END 2025-10-05 10:09 | disposition home or self-care (01) ==
LOC: HO.HKA 09:37
PROVIDERS: PCP Internal Medicine; Visit Provider Internal Medicine Nephrology
DX: N18.32 Chronic kidney disease, stage 3b (principal); I10 Essential (primary) hypertension
CPT/HCPCS: 99214

== ENCOUNTER → 2025-10-05 09:37 | Outpatient (BNVA) | payer OTHER, SELFPAY | PROVIDERS: PCP Internal Medicine; Visit Provider Internal Medicine Nephrology | DX: I12.9 Hypertensive chronic kidney disease with stage 1 through stage 4 chronic kidney disease, or unspecified chronic kidney disease (principal); N18.32 Chronic kidney disease, stage 3b | CPT/HCPCS: 99212 ==

== ENCOUNTER 2025-10-17 13:45 | Outpatient (AMB) | payer OTHER, SELFPAY ==
[2025-10-17 13:51] VITALS: BP 108/62; PULSE 74; BMI 30.5
--- NOTE | 2025-10-17 13:51 | A.OFFVIS_ITS ---
Vital Signs 10/17/25 13:51 Height 5 ft 7 in Weight 194 lb 14.218 oz BMI 30.5 BP 108/62 Pulse 74 Pulse Source Pulse Oximeter Intake Visit Reasons: 6 mth f/up & [facility] Trade Specialist Required: Yes Trade Specialist Language: Department Helper Name: arin espinoza [phone] Ballet Professor: Ballet Professor Present Allergies Seasonal Allergies Allergy (Unknown, Verified 10/17/25 13:53) Unknown Medication List - Last Reconciled 10/17/25 by CONCHITA Davies acetaminophen (Tylenol Extra Strength) 1,000 mg (2 x 500 mg) PO QID PRN albuterol sulfate 90 mcg/actuation 2 inhalations inhalation Q4-6H PRN aspirin 81 mg PO DAILY blood sugar diagnostic (FreeStyle Lite Strips) As directed four times a day cholecalciferol (vitamin D3) 1,250 mcg PO QWEEK 12 weeks digoxin 250 mcg PO DAILY doxycycline monohydrate 100 mg PO BID empagliflozin (Jardiance) 25 mg PO DAILY fenofibrate 54 mg PO DAILY flash glucose scanning reader ([employer] Garrick 2 Pandora) As directed flash glucose sensor (FreeStyle Garrick 2 Sensor kit) As directed every 2 weeks furosemide 40 mg PO DAILY glyburide 10 mg (2 x 5 mg) PO BIDWM hydroxyzine pamoate 50 mg PO BEDTIME PRN insulin aspart U-100 See Protocol sliding scale doses subcut TIDAC insulin glargine 40 units subcut BEDTIME ivabradine (Corlanor) 7.5 mg PO BID lancets (TRUEplus Lancets) Four times a day magnesium oxide 400 mg PO BEDTIME 90 days metformin 500 mg PO BID metoprolol succinate ER 25 mg PO QAM mirtazapine 45 mg PO BEDTIME nebulizers (AeroEclipse II Nebulizer) As directed omega 4-qbb-xzf-fish oil 300 mg (120 mg- 180mg)-1,000 mg 1 cap PO TID omeprazole 40 mg PO DAILY@0630 pen needle, diabetic (P[employer]ips Pen Needle) As directed prednisone 20 mg orally; 3 tabs daily for 3 days, 2 tabs daily for 3 days, 1 tab daily for 3 days prednisone 40 mg (2 x 20 mg) PO DAILY 5 days sacubitril-valsartan 24-26 mg (Entresto) 1 tab See Protocol PO BID semaglutide (Ozempic) 0.5 mg subcut WE sertraline 200 mg PO DAILY HPI HPI 6 mth f/up & [facility]: Details: Oliver is a 55-year-old male with past medical history of obesity, hypertension, hyperlipidemia, diabetes, chronic kidney disease, obstructive sleep apnea with CPAP use, nonischemic cardiomyopathy, Bi V ICD who presents for follow-up. Today he reports he has been doing well since his last visit in February. He has not had any recent hospitalizations. He has an upcoming visit at [facility] for follow- up in Oct. No concerning shortness of breath, no PND, orthopnea or edema. No heart palpitations, lightheadedness, presyncope, syncope. No chest discomfort at rest or with activity. He has been going to the gym for exercise. Compliant with all meds. Certified environmental marketing representative used. HPI Comments Details: Oliver is a 55-year-old male with past medical history of obesity, hypertension, hyperlipidemia, diabetes, chronic kidney disease, obstructive sleep apnea with CPAP use, nonischemic cardiomyopathy, Bi V ICD who presents for follow-up. Today he reports he has been doing well since his last visit in February. He has not had any recent hospitalizations. He has an upcoming visit at [facility] for follow- up. No concerning shortness of breath, no PND, orthopnea or edema. No heart palpitations, lightheadedness, presyncope, syncope. No chest discomfort at rest or with activity. Compliant with all meds. Certified environmental marketing representative used. [facility] Medical History ICD (implantable cardioverter-defibrillator) lead failure Biventricular ICD (implantable cardioverter-defibrillator) in place Nonischemic cardiomyopathy GERD (gastroesophageal reflux disease) Asthma NANO (obstructive sleep apnea) Obesity due to excess calories HLD (hyperlipidemia) Type 2 diabetes mellitus with chronic kidney disease Heart failure with reduced ejection fraction Implantable cardioverter-defibrillator lead failure High cholesterol Diabetes HTN (hypertension) Pacemaker Surgical History S/P ICD (internal cardiac defibrillator) procedure History of tonsillectomy Hx of cardiac cath Hx of transesophageal echocardiography (DAWN) for monitoring History of permanent cardiac pacemaker placement (~2008) History of circumcision Family History Father HTN (hypertension) Diabetes CVD (cardiovascular disease) Hypercholesterolemia Mother Hypercholesterolemia HTN (hypertension) Diabetes Social History Household Members: Spouse Household Members Other:: SO:Thu Housing: Apartment Do you presently have visiting nurse or other home services: No Alcohol intake: current Alcohol intake frequency: 3 or more drinks per day Patient Tobacco Use Status: Never used Tobacco Tobacco use type: Cigarette service: No Review of Systems Const All systems reviewed & are unremarkable except as noted in HPI and below ENT Denies dizziness Card Denies chest pain, Denies chest pain at rest, Denies chest pain with activity, Denies rapid heart rate, Denies pedal edema, Denies edema, Denies leg edema, Denies lightheadedness, Denies palpitations, Denies dyspnea, Denies dyspnea on exertion and Denies orthopnea Resp Denies cough, Denies dyspnea and Denies dyspnea on exertion GI Denies hematochezia and Denies change in stool character Musc Denies abnormal gait, Denies limited range of motion, Denies muscle cramps, Denies muscle weakness, Denies numbness, Denies radiating pain into limb, Denies stiffness and Denies tingling Neuro Denies abnormal gait, Denies dizziness, Denies numbness and Denies tingling Endo Denies palpitations Physical Exam Const General: cooperative, healthy appearing, comfortable and no acute distress Orientation/consciousness: patient oriented x3 Neck Neck: Yes normal visual inspection Resp Effort & Inspection: normal respiratory effort Auscultation: clear to auscultation bilaterally, no rales, no rhonchi and no wheezes Cardio Rate: regular rate Rhythm: regular rhythm Heart sounds: S1 normal heart sound present, S2 normal heart sound present, no gallops, no murmurs and no rubs Peripheral pulses: Peripheral pulses 2+ throughout Neuro General: patient oriented x3 Extrem General: Yes normal to inspection, No no pedal edema and No calf tenderness Psych Appearance: grossly normal Mental Status: mental status grossly normal Speech and movement: Normal speech and movement present Assessment & Plan Assessment & Plan (1) Nonischemic cardiomyopathy: Comment: Follows with Dr Nielson and at [facility] Code(s): I42.8 - Other cardiomyopathies Category: Medical Plan: History of nonischemic cardiomyopathy with prior cardiac catheterizations showed normal coronary arteries. He had done well on GDMT and most recent echocardiogr am 07/26/2024 showed EF 45-50%. He follows with [facility] heart failure clinic and has reported follow up in October. No clinical signs of heart failure on exam. Continue Metoprolol, Entresto, Corlanor, Jardiance, digoxin, Lasix. Will check Digoxin level. Signs and symptoms of heart failure reviewed with him. Cardiology follow-up 7 months, sooner if needed. (2) Biventricular ICD (implantable cardioverter-defibrillator) in place: Code(s): Z95.810 - Presence of automatic (implantable) cardiac defibrillator Category: Medical Plan: [employer] Bi V ICD in place. Remote monitoring in use. Due for office check next month - then will arrange a 6 mo recheck. (3) NANO (obstructive sleep apnea): Code(s): G47.33 - Obstructive sleep apnea (adult) (pediatric) Category: Medical Plan: He reports compliance with his CPAP (4) HTN (hypertension): Code(s): I10 - Essential (primary) hypertension Category: Medical Qualifiers: Hypertension type: primary hypertension Qualified Code(s): I10 - Essential (primary) hypertension Plan: Blood pressure on low side, asymptomatic. Med changes made as above. Plan I discussed with the patient that his non-ischemic cardiomyopathy is well-rachel ged, with his last known ejection fraction of 45-50% being just below the normal range. I reviewed the warning signs of worsening heart failure, including increased shortness of breath, difficulty breathing while lying down, and swelling in his body or legs. We discussed his biventricular ICD, noting it has been monitoring his heart without needing to deliver any shocks, which is a positive sign. I informed him that a digoxin level was missing from his recent labs. I explained that there was a scheduling error, and his ICD check will now occur in October. I instructed him to get the blood test for the digoxin level on the same day as his rescheduled ICD check, and to not take his digoxin pill that morning. We scheduled his next full follow-up for seven months from now. Orders: Orders Digoxin 3 Weeks I50.20 - Unspecified systolic (congestive) heart failure Patient Instructions: - Continue to take your medicines every day as prescribed. - Watch for symptoms of a weak heart, such as increased shortness of breath, trouble breathing when lying down, and swelling in your body or legs. - Please let us know if you develop any of these symptoms. - We will have you come back in about a month, in October, to get your heart device (ICD) checked. - On the day of your device check, you will also get a blood test to check your digoxin level. - Do not take your digoxin pill on the morning of this test. - Your next full follow-up appointment after that will be in seven months. Patient was informed and verbally consented to the use of an ambient scribe for clinic note documentation during this visit. Visit time spent on chart review, interview, assessment, orders, documentation. Coding Level of Care Code Est Pt Level 4 (13627) Add On Problem Visit Only Diagnoses Nonischemic cardiomyopathy I42.8 Biventricular ICD (implantable cardioverter-defibrillator) in place Z95.810 NANO (obstructive sleep apnea) G47.33 Primary hypertension I10 Hypertension type: primary hypertension Time Spent (min) 28
--- OUTSIDE RECORDS SUMMARY | 2025-10-17 17:12 | XMS_ITS | Encounter Summary ---
Author Organization [employer] Address [address] [place] [address] Care Team Providers Care Motorized Squad Sergeant Name Role Phone Tor Crews MD Primary Care Provide r Encounter Details Date Type Department Care Team (Late st Contact Info) Description 10/30/2022 Orders Only [facility] [address] [place], [place] [phone] Mahsa Bustillos LPN Social History Tobacco Use [...] Description 12/13/2025 10:30 AM EST Office Visit [facility] MEDICINE [address] [place] [address] Tor Crews MD [address] [place] [address] documented as of this encounter Visit Diagnoses Not on filedocumented in this encounter Care Teams Motorized Squad Sergeant Relationship Specialty Start Date End Date Tor Crews MD [address] [place] [id number] PCP - General Internal Medicine 07/21/14 documented as of this encounter
--- OUTSIDE RECORDS SUMMARY | 2025-10-17 17:12 | XMS_ITS | Encounter Summary ---
Author Organization [employer] Address [address] [place] [address] Care Team Providers Care Building Components Designer Name Role Phone Tor rCews MD Primary Care Provide r Reason for Visit * Reason Comments Med Refill Encounter Details Date Type Department Care Team ([facility] st Contact Info) Description 12/19/2023 Refill [facility] MED & PEDS [address] [place], [place] [phone] Sinai Sesay MD [address] [place] [address] Social History Tobacco Use Types Packs/Day Years [...] Description 12/13/2025 10:30 AM EST Office Visit [facility] MED[facility]INE [address] [place] [address] Tor Crews MD [address] [place] [phone] documented as of this encounter Visit Diagnoses Not on filedocumented in this encounter Additional Health Concerns Assessment Noted Time PHQ-9 Depression Total Score: 4 03/04/20 23 2:58 PM EDT documented as of this encounter Care Teams Building Components Designer Relationship Specialty Start Date End Date Tor Crews MD [address] [place] [id number] PCP - General Internal Medicine 07/21/14 documented as of this encounter
--- OUTSIDE RECORDS SUMMARY | 2025-10-17 17:12 | XMS_ITS | Patient Health Record ---
Author Organization [facility] Address [address] [place] [address] Care Team Providers Care Assistant Business Manager Name Role Phone Megan Bañuelos MD, Tor Primary Care Provide r Unavailable Juan M Morel Unavailable [phone] Allergies No Known Allergies Reason For Referral No Information Medications Medication SIG (Take, Route, Frequency, Duration) Notes Start Date End Date Status Furosemide 80 MG Tablet TAKE 1 TABLET BY MOUTH EVERY MORNING Oral; Duration: 30 Active Trulicity 0.75 MG/0.5ML Solution Pen-injector Subcutaneous; Duration: 28 Active Entresto 97-103 MG Tablet Oral; Duration: 30 Active Lantus 100 UNIT/ML Solution INJECT 40 UNITS SUBCUTANEOUSLY AT BEDTIME Subcutaneous; Duration: 24 Activ e Digoxin 250 MCG Tablet Oral; Duration: 30 Active Corlanor 7.5 MG Tablet Oral; Duration: 30 Active Atorvastatin Calcium 20 MG Tablet TAKE 1 TABLET BY MOUTH EVERY EVENING Oral; Duration: 90 Active Loratadine 10 MG Tablet Oral; Duration: 30 Active glipiZIDE XL 10 MG Tablet Extended Release 24 Hour Oral; Duration: 30 Active metFORMIN HCl 500 MG Tablet Oral; Duration: 30 Active Sertraline HCl 100 MG Tablet TAKE 2 TABLETS BY MOUTH EVERY DAY AT BEDTIME Diagnosis Unavailable Oral; Duration: 30 Active Jardiance 10 MG Tablet TAKE 1 TABLET BY MOUTH EVERY MORNING Diagnosis Unavailable Oral; Duration: 30 Active NovoLOG FlexPen 100 UNIT/ML Solution Pen-injector Subcutaneous; Duration: 30 A ctive Albuterol Sulfate (2.5 MG/3ML) 0.083% Nebulization Solution INHALE 1 AMPULE USING A NEBULIZER THREE TIMES DAILY Inhalation; Duration: 10 Active Aspirin Low Dose 81 MG Tablet Delayed Release Oral; Duration: 90 Active Spironolactone 25 MG Tablet Oral; Duration: 90 Active Carvedilol 25 MG Tablet TAKE 2 TABLETS B Y MOUTH TWICE DAILY IN THE MORNING AND EVENING Oral; Duration: 30 Active Vitamin D3 25 MCG Tablet TAKE 1 TABLET B Y MOUTH EVERY MORNING Oral; Duration: 90 Active Omeprazole 40 MG Capsule Delayed Release Oral; Duration: 90 Active Immunizations Vaccine Route Administration Date Status Comme nts Influenza Unknown 10/09/2021 Refused Social History Tobacco Use: Social History Observation Description Date Details (start date - stop date) Current Smoker NA - NA Social History Drugs/Alcohol: Social Info Question Answer Notes Alcohol Screen Did you have a drink containing alcohol in the past year? Yes How often did you have a drink containing alcohol in the past year? 2 to 4 times a month (2 points) How many drinks did you have on a typical day when you were drinking in the past year? 1 or 2 drinks (0 point) Points 2 Interpretation Negative Tobacco Use: Social Info Question Answer Notes Tobacco Use/Smoking Patient is a current smoker How often do you smoke cigarettes? some days, but not every day How many cigarettes a day do you smoke? 5 or less Additional Details Category Social Info Options Details Miscellaneous: Marital status: Marrried Occupation: unemployed Section Notes: Smokes occ. cigs; drinks occ . alcohol Problems Problem Type SNOMED Code ICD Code Onset Dates Problem Status W/U Status Risk Notes Problem Screening for malignant neoplasm of colon (798302644) Encounter for screening for malignant neoplasm of colon (Z12.11) Active confirmed Problem Gastritis (6878157) Gastritis (K29.70) Active c onfirmed Problem Esophageal reflux finding (492117381) Gastroesophageal reflux (K21.9) Active confirmed Problem Diverticulosis of colon (817799748) Diverticulosis of colon (K57.30) Active confirmed Problem Gastroesophageal reflux disease (630816986) Gastroesophageal reflux disease, unspecified whether esophagitis present (K21.9) Active confirmed Plan Of Treatment Pending Test Test Name Order Date Pathology 01/25/2022 Future Test Test Name Order Date UPPER GI ENDOSCOPY 10/09/2021 COLONOSCOPY 10/09/2021 Insurance Providers Payer Name Payer Address Payer Phone Subscriber Number Group Number Insured Name Patient Relationship to Insured Coverage Start Date Coverage End Date [facility] [address] [place] [address] [id number] CARMINA LOMAX Self - patient is the insured Medical (General) History Medical History History ICD Code GERD IDDM Hypertension Nonischemic cardiomyopathy-Johnny Nielson---seen at [facility] in [place] for ? cardiac transplant, but not on active list Sleep apnea- cpap machine Depression CHF Hyperlipidemia CKD stage 3 Asthma Pacemaker Denies NE,CVA Surgical History Surgery Date(Month/Year) Pacemaker 2008
--- OUTSIDE RECORDS SUMMARY | 2025-10-17 17:12 | XMS_ITS | Encounter Summary ---
Author Organization [employer] Address [address] [place] [address] Care Team Providers Care Precision Lathe Operator Name Role Phone Tor Crews MD Primary Care Provide r Encounter Details Date Type Department Care Team (Latest Contact Info) Description 04/26/2021 Abstract [facility] CONVERSIONS Dental, Provider, DDS Social History Tobacco [...] Description 12/13/2025 10:30 AM EST Office Visit [facility] MEDICINE [address] [place] [address] Tor Crews MD [address] [place] [phone] documented as of this encounter Visit Diagnoses Not on filedocumented in this encounter Care Teams Precision Lathe Operator Relationship Specialty Start Date End Date Tor Crews MD [address] [place] [address] [phone] PCP - General Internal Medicine 07/21/14 documented as of this encounter
--- OUTSIDE RECORDS SUMMARY | 2025-10-17 17:12 | XMS_ITS | Encounter Summary ---
Author Organization [employer] Address [address] [place] [address] Care Team Providers Care Earth Science Professor Name Role Phone Tor Crews MD Primary Care Provide r Reason for Visit * Reason Onset Date Comments Hospital Follow-up 10/26/2024 Encounter Details Date Type Department Care Team ([facility] st Contact Info) Description 10/26/2024 Telephone [facility] [address] [place], [place] [phone] Tor Crews MD [address] [place], [place] [phone] Hospital Follow-up Social History Tobacco Use Types [...] from pt requesting a HDF appt. Hospital: [facility] Date of admission: 10/20/2024 Discharge date: 10/25/2024 Diagnosed: Asthma *Send message to [facility] Clinical Care Coordinators documented in this encounter Plan of Treatment Upcoming Encounters Date Type Department Care Team (Late st Contact Info) Description 12/13/2025 10:30 AM EST Office Visit [facility] [address] [place] [address] Tor Crews MD [address] [place] [address] documented as of this encounter Visit Diagnoses Not on filedocumented in this encounter Additional Health Concerns Assessment Noted Time PHQ-9 Depression Total Score: 4 03/04/20 23 2:58 PM EDT documented as of this encounter Care Teams Earth Science Professor Relationship Specialty Start Date End Date Tor Crews MD [address] [place] [address] PCP - General Internal Medicine 07/21/14 documented as of this encounter
--- OUTSIDE RECORDS SUMMARY | 2025-10-17 17:12 | XMS_ITS | Encounter Summary ---
Author Organization [employer] Address [address] [place] [address] Care Team Providers Care Repertoire Manager Name Role Phone Tor Crews MD Primary Care Provide r Reason for Visit * Reason Comments Med Refill Encounter Details Date Type Department Care Team ([facility] st Contact Info) Description 08/07/2023 Refill [facility] [address] [place], [place] [phone] Tor Crews MD [address] [place], [place] [phone] Hypertriglyceridemia Social History Tobacco Use Types Packs/Day [...] Description 12/13/2025 10:30 AM EST Office Visit [facility] [address] [place] [address] Tor Crews MD [address] [place] [phone] documented as of this encounter Visit Diagnoses Diagnosis Hypertriglyceridemia Pure hyperglyceridemia documented in this encounter Additional Health Concerns Assessment Noted Time PHQ-9 Depression Total Score: 4 03/04/20 23 2:58 PM EDT documented as of this encounter Care Teams Repertoire Manager Relationship Specialty Start Date End Date Tor Crews MD [address] [place] [id number] PCP - General Internal Medicine 07/21/14 documented as of this encounter
--- OUTSIDE RECORDS SUMMARY | 2025-10-17 17:12 | XMS_ITS | Encounter Summary ---
Author Organization [employer] Address [address] [place] [address] Care Team Providers Care Biodiesel Plant Superintendent Name Role Phone Tor Crews MD Primary Care Provide r Encounter Details Date Type Department Care Team ([facility] st Contact Info) Description 01/19/2025 Telephone [facility] [address] [place], [place] [phone] Tor Crews MD [address] [place], [place] [phone] Social History Tobacco Use Types Packs/Day Years [...] t he electric, gas, oil or water [employer] threatened to shut off services in your [...] Description 12/13/2025 10:30 AM EST Office Visit [facility] [address] [place] [address] Tor Crews MD [address] [place] [address] documented as of this encounter Visit Diagnoses Not on filedocumented in this encounter Additional Health Concerns Assessment Noted Time PHQ-9 Depression Total Score: 4 03/04/20 23 2:58 PM EDT documented as of this encounter Care Teams Biodiesel Plant Superintendent Relationship Specialty Start Date End Date Tor Crews MD [address] [place] [phone] PCP - General Internal Medicine 07/21/14 documented as of this encounter
--- OUTSIDE RECORDS SUMMARY | 2025-10-17 17:12 | XMS_ITS | Encounter Summary ---
Author Organization [employer] Address [address] [place] [address] Care Team Providers Care Encoding Clerk Name Role Phone Tor Crews MD Primary Care Provide r Encounter Details Date Type Department Care Team (Late st Contact Info) Description 10/15/2024 Orders Only [facility] [address] [place], [place] [phone] Arceila Watkins ANP [address] [place], [place] [phone] Social History Tobacco Use Types Packs/Day Years [...] 12/13/2025 10:30 AM EST Office Visit [facility] [address] [place] [address] Tor Crews MD [address] [place] [address] documented as of this encounter Visit Diagnoses Not on filedocumented in this encounter Additional Health Concerns Assessment Noted Time PHQ-9 Depression Total Score: 4 03/04/20 23 2:58 PM EDT documented as of this encounter Care Teams Encoding Clerk Relationship Specialty Start Date End Date Tor Crews MD [address] [place] [address] PCP - General Internal Medicine 07/21/14 documented as of this encounter
--- OUTSIDE RECORDS SUMMARY | 2025-10-17 17:12 | XMS_ITS | Clinical Summary ---
Author Organization [employer] Address [address] [place] [address] Care Team Providers Care Obiee Consultant Name Role Phone Tor Crews MD Primary [...] 2 diabetes mellitus without complication, unspecified whether watermelon inspector insulin use take 1 tablet by oral [...] 25 mg by mouth Once per day. 1/ tab daily Active furosemide (Lasix) 40 MG tablet Take 40 mg by mouth in the morning. 024 Active Blood Glucose Monitoring Suppl (Relox Medical Lite) w/Device kitIndications:T ype 2 diabetes mellitus with stage 3b chronic kidney disease, with long-term current use of insulin (HCC) Use to test blood sugar 3 times daily 1 kit 024 Active Vaporizer miscIndications: Viral URI,Mild intermittent [...] with long-term current use of insulin (HCC) USE DIRECTED TO TEST BLOOD SUGAR THREE TIMES DAILY 100 each 11 10/06/20 25 4:25 PM EST 025 Active Pentips Generic Pen [place] 32G X 4 MM misc USE DIRECTED [...] 025 Active cholecalciferol (Vitamin D-3) 1.25 MG (68321 UT) capsule Take 1 capsule by mouth every 7 (seven) days. 025 Active Aspirin Low Dose 81 MG EC tabletIndication s:Cardiomyopathy , unspecified type (CMS/HCC) (HCC) TAKE 1 TABLET BY MOUTH EVERY EVENING 90 tablet 3 09/12/20 25 12:58 PM EST 025 Active Lantus 100 UNIT/ML injectionIndicat ions:Type 2 diabetes mellitus without complication, with long-term current use of insulin ([facility]) INJECT 46 UNITS SUBCUTANEOUSLY ONCE DAILY AT BEDTIME 15 mL 3 10/06/20 25 4:24 PM EST 025 Active omeprazole (PriLOSEC) [address] capsuleIndicatio ns:Gastroesophag eal reflux disease without esophagitis TAKE 1 CAPSULE BY MOUTH EVERY DAY BEFORE MEALS 90 capsule 2 025 Active Ozempic, 2 MG/DOSE, 8 MG/3ML solution pen-injectorIndi cations:Type 2 diabetes mellitus with stage 3b chronic kidney disease, with long-term current use of insulin ([facility]) Inject 2 MG SUBCUTANEOUSLY EVERY 7 DAYS IN THE ABDOMEN, THIGHS OR UPPER ARM. ROTATE INJECTION SITES. 3 mL 6 10/06/20 25 4:24 PM EST 025 Active fenofibrate (Tricor) 54 MG tabletIndication s:Hypertriglycer idemia TAKE 1 TABLET BY MOUTH EVERY MORNING 90 tablet 1 10/06/20 25 4:24 PM EST 025 Active NovoLOG FLEXPEN 100 UNIT/ML penIndications:T ype 2 diabetes mellitus without complication, with long-term current use of insulin ([facility]) INJECT PER SLIDING SCALE FOR BLOOD SUGAR [...] or split. 30 tablet 025 2025 Active cetirizine (ZyrTEC) 10 MG tablet Take 1 tablet (10 mg) by mouth if needed each day for rhinitis. 30 tablet 1 2025 Active fluticasone (Flonase) 50 MCG/ACT nasal [...] for congestion. 30 tablet 025 2025 Active FREESTYLE LITE test stripIndications :Type 2 diabetes mellitus with stage 3b chronic kidney disease, with long-term current use of insulin ([facility]) USE DIRECTED TO TEST BLOOD SUGAR THREE TIMES DAILY 100 strip 11 10/06/20 25 4:24 PM EST Active doxycycline (Monodox) 100 MG capsule Active MAGnesium-Oxide 400 (240 Mg) MG tablet TAKE 1 TABLET BY MOUTH AT BEDTIME. HOLD FOR LOOSE STOOL Active FREESTYLE LITE test stripIndications :Type 2 diabetes mellitus with stage 3b chronic kidney disease, with long-term current use of insulin ([facility]) Use to test blood sugar 3 times daily 100 each 12 09/12/20 25 12:58 PM EST 024 2024 Discontinued NovoLOG FLEXPEN 100 UNIT/ML [...] 30 tablet 09/21/20 25 10:42 AM EST 2024 amoxicillin (Amoxil) 500 MG capsuleIndicatio ns:Strep pharyngitis Take 1 capsule (500 mg) by mouth 2 times daily for 10 days. 20 capsule 09/16/20 25 1:11 PM EST 2024 Discontinued(T herapy completed) benzonatate (Tessalon) 100 MG capsule Take 1 capsule (100 mg) by mouth if needed in the morning, at noon, and at bedtime for cough for up to 7 days. Do not crush or chew. 20 capsule 025 2024 Active Problems Problem Noted Date Diagnosed Date Elevated blood pressure read ing in office with diagnosis of hypertension 09/16/2025 Strep pharyngitis 09/16/2025 Flu-like symptoms 09/16/2025 Laryngitis, acute 09/16/2025 Hospital discharge follow-up 11/18/2024 Assessment & Plan (11/18/2024 1:37 PM EST): Patient is here for a HDF He was admitted to [facility] from 10/21-10/25/2024 After he [...] See image in chart. -Cleaned and used [place] cary to close laceration. -ER precautions discussed. [...] EST): Patient under the care of Dr. Nieslon, last seen 08/24/2025 Assessment & Plan (03/23/2024 [...] a HDF after a recent admission to [facility] for a syncopal episode. [...] of Carvedilol, Enteresto and Spironoloactone. Followed by lens assistant who recommended to keep all his medications [...] titers were negative, HIV (neg 12/2012 at [facility]) , SAMEER (neg 01/03/2013 at [facility] ) , ADRIÁN level was normal. Pt is s/p ICD placement in 2008 ([employer]) Last cardiology note 03/14/2025 recommended to Continue current neurohormonal modulation with Entresto, Daily weight monitoring and avoidance of salt loading . Continue aggressive blood pressure control. Encouraged to continue to participate in physical activity as tolerated and participate in weight loss program. He has done extremely well with medical management despite no BRIGADIER. He was advised to continue to follow at [facility] for heart transplant evaluation.on annual basis. Had stress test at [facility] 09/14/[address] Layla VILLASENOR 08/05/2024 showed [...] titers were negative, HIV (neg 12/2012 at [facility]) , SAMEER (neg 01/03/2013 at [facility] ) , ADRIÁN level was normal. Pt is s/p ICD placement in 2008 ([employer]) Follows at the HF clinic , last seen 07/2022 Dr. Nielson recommended to Continue current neurohormonal modulation with Entresto, Daily weight monitoring and avoidance of salt loading . Continue aggressive blood pressure control. Encouraged to continue to participate in physical activity as tolerated and participate in weight loss program. He has done extremely well with medical management despite no BRIGADIER. He was advised to continue to follow at [facility] for heart transplant evaluation.on annual basis. Last seen 07/14/2024 He was last seen by Dr Nielson 12/01/2024 He is on: Toprol X: 12.5 mg One tablet Daily Entresto 24-26 mg BID And Lasix 40 mg once Daily Had stress test at [facility] 09/14/[address] Layla VILLASENOR 08/05/2024 showed [...] titers were negative, HIV (neg 12/2012 at [facility]) , SAMEER (neg 01/03/2013 at [facility] ) , ADRIÁN level was normal. Pt is s/p ICD placement in 2008 ([employer]) Follows at the HF clinic , last seen 07/2022 Dr. Nielson recommended to Continue current neurohormonal modulation with Entresto, Daily weight monitoring and avoidance of salt loading . Continue aggressive blood pressure control. Encouraged to continue to participate in physical activity as tolerated and participate in weight loss program. He has done extremely well with medical management despite no BRIGADIER. He was advised to continue to follow at [facility] for heart transplant evaluation.on annual basis. Last seen 07/14/2024 He was last seen by Dr Nielson 02/25/2024 He is on: Toprol X: 12.5 mg One tablet Daily Entresto 24-26 mg BID And Lasix 40 mg once Daily Had stress test at [facility] 09/14/[address] Rich ECHO 08/05/2024 showed [...] titers were negative, HIV (neg 12/2012 at [facility]) , SAMEER (neg 01/03/2013 at [facility] ) , ADRIÁN level was normal. Pt is s/p ICD placement in 2008 ([employer]) Follows at the HF clinic , [...] extremely well with medical management despite no BRIGADIER. He was advised to continue to follow at [facility] for heart transplant evaluation.on annual basis. Last seen 07/14/2024 He was last seen by Dr Nielson 02/25/2024 His Carvedilol was replaced with Toprol X: 12.5 mg One tablet Daily His Entresto was lowered to 24-26 mg BID His Lasix was lowered to 40 mg once Daily by Dr Rich at [facility] Assessment & Plan (03/23/2024 11:09 AM EDT): Patient is here for a f/u He has non-ischemic cardiomyopathy diagnosed in 2008 (etiology ? NANO ? ETOH relate ? Pt gives a Hx of over 20 years of very heavy drinking. Basic blood work to r/o other etiologies: TSH 06/09/2013 was wnl, , Lyme titers were negative, HIV (neg 12/2012 at [facility]) , SAMEER (neg 01/03/2013 at [facility] ) , ADRIÁN level was normal. Pt is s/p ICD placement in 2008 ([employer]) Follows at the HF clinic , last [...] extremely well with medical management despite no BRIGADIER. He was advised to continue to follow with Dr Rivas at [facility] for heart [...] titers were negative, HIV (neg 12/2012 at [facility]) , SAMEER (neg 01/03/2013 at [facility] ) , ADRIÁN level was normal. Pt is s/p ICD placement in 2008 ([employer]) Follows at the HF clinic , [...] extremely well with medical management despite no BRIGADIER. Dr Nielson recommended Follow-up echocardiogram in 1 month's time. He was advised to continue to follow with Dr Rivas at [facility] for heart [...] titers were negative, HIV (neg 12/2012 at [facility]) , SAMEER (neg 01/03/2013 at [facility] ) , ADRIÁN level was normal. Pt is s/p ICD placement in 2008 ([employer]) Follows at the HF clinic , last seen 07/2022 Heart failure with reduced ejection fraction with much improved LV ejection fraction 40-45% with much improved symptoms with NYHA class [address] symptoms. Last seen by Dr. Nielson 05/12/2023 He was advised to continue to follow with Dr Rivas at [facility] for heart [...] extremely well with medical management despite no BRIGADIER. Dr Nielson recommended Follow-up echocardiogram in 1 [...] titers were negative, HIV (neg 12/2012 at [facility]) , SAMEER (neg 01/03/2013 at [facility] ) , ADRIÁN level was normal. last EF 20-25% 2017 Pt is s/p ICD placement in 2008 ([employer] scientific) Follows at the HF clinic , last seen 07/2022 Pt tells me he has a f/u with Dr. Nielson as well He was advised to continue to keep appointment with Dr Rivas at [facility] for heart transplant evaluation. CKD stage 3 secondary to diabetes 12/26/2015 Assessment & Plan (09/01/2025 2:29 PM EST): Under the care of Nephrology, last seen 06/22/2025 Dr. Bonilla his electromechanical equipment tester Lab Results Component Value Date GLUCOSE 239 (H) 12/28/2024 NA 140 06/17/2025 K 3.9 06/17/2025 CO2 23 06/17/2025 CL 104 06/17/2025 BUN 23 (H) 06/17/2025 CREATININE 1.75 (H) 06/17/2025 Assessment & Plan (12/07/2024 11:25 AM EST): Under the care of Nephrology, last seen 12/01/2024 Dr. Bonilla his electromechanical equipment tester Lab Results Component Value Date GLUCOSE 340 (H) 10/16/2024 NA 140 11/23/2024 K 4.3 11/23/2024 CO2 24 11/23/2024 CL 110 (H) 11/23/2024 BUN 17 (H) 11/23/2024 CREATININE 1.56 (H) 11/23/2024 Assessment & Plan (11/18/2024 1:39 PM EST): Under the care of Nephrology, last seen 09/03/2024 Dr. Chad campbell electromechanical equipment tester Lab Results Component Value Date GLUCOSE 340 (H) 10/16/2024 NA 137 10/16/2024 K 3.8 10/16/2024 CO2 20 (L) 10/16/2024 CL 107 10/16/2024 BUN 30 (H) 10/16/2024 CREATININE 1.65 (H) 10/16/2024 Will repeat Assessment & Plan (09/21/2024 12:58 PM EST): Under the care of Nephrology, last seen 09/03/2024 Dr. Chad campbell electromechanical equipment tester Assessment & Plan (07/27/2024 11:47 AM EDT): Under the care of Nephrology, last seen 03/05/2024 Dr. Chad campbell electromechanical equipment tester Assessment & Plan (03/23/2024 11:01 AM EDT): Under the care of Nephrology, last seen 03/05/2024 Dr. Chad campbell electromechanical equipment tester Assessment & Plan (11/25/2023 12:08 PM EST): Under the care of Nephrology, last seen 07/16/2023. Dr. Chad campbell electromechanical equipment tester Assessment & Plan (06/10/2023 9:25 AM EDT): Under the care of Nephrology, last seen 12/2022. I sent a message via Jacked to Dr. Chad campbell electromechanical equipment tester letting him know I am starting patient [...] low fat low cholesterol diet, Referred to Quality Improvement Consultant. RENITA Atorvastatin . Start Fenofibrate Follow up [...] mg po BID ( was restarted by Air Conditioning Specialist in [place]). (Trulicity stopped due to c/o nausea and [...] mg po BID ( was restarted by Air Conditioning Specialist in [place]). He stopped taking the Trulicity due to [...] mg po BID ( was restarted by Air Conditioning Specialist in [place]). He stopped taking the Trulicity due to [...] a week His Metformin was restarted by Air Conditioning Specialist in [place] 500 mg po BID once a day [...] a week His Metformin was restarted by Air Conditioning Specialist in [place] 500 mg po BID once a day [...] 25 mg, His Metformin was restarted by Air Conditioning Specialist in [place] 500 mg po BID once a day [...] 25 mg, His Metformin was restarted by Air Conditioning Specialist in [place] 500 mg po BID once a day [...] 1.5 mg His Metformin was restarted by Air Conditioning Specialist in [place] 500 mg po BID Plan: No changes [...] is Jamari Yousif and Dr Stahl at [facility] He used to see Dr. Colon but stopped due to lack of transportation His biggest complaint was lack of sleep. I have agreed to prescribe trazodone 100 mg po q hs prn. Assessment & Plan (05/13/2023 8:57 AM EDT): Pt currently seeing a psychotherapist her name is Aj at [facility] . He used to see Dr. Colon but stopped due to lack of transportation His biggest complaint was lack of sleep. I have agreed to prescribe trazodone 100 mg po q hs prn. Obstructive sleep apnea syndrome 01/21/2013 Assessment & Plan (09/01/2025 2:28 PM EST): Diagnosis with mod severe NANO Under the care of nail specialist [facility]en at the [facility] 07/01/2025 Recommended Cpap Assessment & Plan (03/23/2024 10:59 AM EDT): Under the care of nail specialist (Dr Rucker). Seen at the [facility] 01/27/2024 Awaiting Cpap Assessment & Plan (11/25/2023 11:58 AM EST): Sleep study done on 03/08/2013 confirmed the diagnosis of moderately severe NANO. Pt reported compliance with Cpap machine And is now under the care of nail specialist (Dr Rucker). Awaiting Cpap Assessment & Plan (05/13/2023 8:57 AM EDT): Sleep study done on 03/08/2013 confirmed the diagnosis of moderately severe NANO. Pt reported compliance with Cpap machine And is now under the care of nail specialist (Dr Rucker). He told me his Cpap was no longer working and needed a new one He was referred back for Sleep study, to sleep clinic. Appointment scheduled for 05/16/2023 Assessment & Plan (03/04/2023 3:01 PM EDT): Sleep study done on 03/08/2013 confirmed the diagnosis of moderately severe NANO. Pt reported compliance with Cpap machine And is now under the care of nail specialist (Dr Rucker). He tells me his Cpap is no longer working and needs a new one Plan: Sleep study, will refer to sleep clinic Cardiomyopathy 01/11/2013 Gastroesophageal reflux disease 01/11/2013 Resolved Problems Problem Noted Date Diagnosed Date Resolved Date Ingrowing nail, right great toe 10/06/2017 11/25/2023 Assessment & Plan (07/15/2023 3:25 PM EDT): Pt tells me the two needle machine operator requested authorization from PCP to take care of his ingrown toe nail Plan: Podiatry referral Congestive heart failure 01/21/2013 Encounters Date Type Department Care Team Description 10/03/2025 Orders Only GENERIC EXTERNAL DATA DEPARTMENT Provider, Generic External Data 10/01/2025 Refill [facility] [address] [place] [address] Tor Crews MD Type 2 diabetes mellitus with stage 3b chronic kidney disease, with long-term current use of insulin (HCC) 09/30/2025 11:00 AM EST Office Visit [facility] [address] [place] [address] Mahsa Johnson DO COVID-19 (Primary Dx); Sore throat; Seasonal allergies 09/30/2025 Telephone [facility] [address] [place] [address] Tor Crews MD Ambulance Transport 09/30/2025 Travel 09/29/2025 Telephone [facility] [address] [place] [address] Tor Crews MD Nurse Triage 09/28/2025 Refill [facility] [address] [place] [address] Tor Crews MD Type 2 diabetes mellitus without complication, with long-term current use of insulin ([facility]) 09/16/2025 Telephone [facility] [address] [place] [phone] Anne Glass, RN 09/16/2025 Telephone [facility] [address] [place] [address] Anne Glass, RN 09/15/2025 2:00 PM EST Office Visit [facility] [address] [place] [address] Senia Silver FNP Strep pharyngitis (Primary Dx); Flu-like symptoms; Elevated blood pressure reading in office with diagnosis of hypertension; Laryngitis, acute 09/15/2025 Travel 09/14/2025 9:00 AM EST Office Visit [facility] [address] [place] [address], [place] [address] Ajith, Nohemi, OD Diabetes type 2, no ocular involvement (HCC) (Primary Dx); Chorioretinal scar, right; Hypertensive retinopathy of both eyes; Meibomian gland disease of both eyes, unspecified eyelid; Presbyopia 09/14/2025 Travel 09/13/2025 Telephone [facility] [address] [place] [address] Tor Crews MD November09/01/2025 2:15 PM EST Office Visit [facility] [address] [place] [address] Tor Crews MD Type 2 diabetes mellitus with stage 3b chronic kidney disease, with long-term current use of insulin (HCC) (Primary Dx); Failure of implantable cardioverter-defibrill ator (ICD) lead, subsequent encounter; Obstructive sleep apnea syndrome; CKD stage 3 secondary to diabetes (HCC); Depressive disorder; Primary osteoarthritis of right knee; Erectile dysfunction, unspecified erectile dysfunction type; Encounter for immunization 09/01/2025 Travel 08/31/2025 Telephone [facility] [address] [place] [address] Saundra Wong MA 08/25/2025 Patient Outreach [facility] [address] [place], [place] [phone] Tor Crews MD Pre-visit Planning (SDOH negative, Tobacco screening negative. ) 08/21/2025 Refill [facility] [address], [place] [phone] Tor Crews MD Type 2 diabetes mellitus with stage 3b chronic kidney disease, with long-term current use of insulin (HCC) 08/10/2025 Orders Only [facility] [address], [place] [phone] Tor Crews MD Type 2 diabetes mellitus with stage 3b chronic kidney disease, with long-term current use of insulin (HCC) (Primary Dx) 08/04/2025 Telephone [facility] [address], [place] [phone] Tor Crews MD Referral from Last 3 Months Immunizations Immunization Administration [...] Description 12/13/2025 10:30 AM EST Office Visit [facility] [address] [place] [address] Tor Crews MD [address] [place] [address] Health Maintenance Due Date Last Done Comments [...] 3-dose series) 10/19/2024 09/21/2024 COVID-19 Vaccine ( season) 2025 11/20/2021, 01/10/2021, 12/20/2020 Dental X-Ray: Bitewings 11/30/2025 11/29/19, 09/20/2024, 04/18/2021 Diabetes: Hemoglobin A1C 12/02/2025 025, 05/17/2025, 12/07/2024, Additional history exists Dental Oral Exam 12/03/2025 06/01/2025, 12/2024, 04/18/2021 Dental Prophylaxis 12/03/2025 06/01/2025, 11/29/2024 Alcohol/Substance Use Screening 12/07/2025 12/07/2024 Disability Screening 02/10/2026 02/10/2025 Depression Monitoring 03/01/2026 09/01/2025, 025 SDOH Screening 08/25/2026 08/25/2025 Tobacco Screening 10/07/2026 10/07/2025 Eye Exam 09/14/2027 09/14/2025, 08/27, 09/14/2025, Additional [...] manage their type 2 diabetes No HobsonItalo peters, WOLF Weekly blood pressure task Care Plan Weekly blood pressure task No HobsonElvia petersuyomy [place] Help patients manage their type 2 diabetes Care Plan Help patients manage their type 2 diabetes No Italo Hobson MA Patient has chronic kidney disease Care Plan Patient has chronic kidney disease No Italo Hobson MA Weekly blood pressure task Care Plan Weekly blood pressure task No HobsonGurinder petersomy [place] Patient has chronic kidney disease Care [...] Plan Patient has chronic kidney disease No Luis Hilario Weekly blood pressure task Care Plan Weekly blood pressure task No Ferrer Haas, [place], [place] Weekly blood pressure task Care Plan Weekly blood pressure task No Ferrer Haas [place] Patient has chronic kidney disease Care Plan Patient has chronic kidney disease No Ferrer Haas, [place], [place] Patient has chronic kidney disease Care Plan Patient has chronic kidney disease No Ferrer Haas, [place], [place] Weekly blood pressure task Care Plan Weekly [...] Date/Time Associated Diagnosis Comments CREATININE, SERUM Routine 10/03/2025 9:2 3 AM EST UREA NITROGEN (BUN) Routine 10/03/2025 9 :23 AM EST ELECTROLYTE PANEL Routine 10/03/2025 9:2 3 AM EST POC HENRY ID NOW STREP A Routine [...] current use of insulin (HCC) POCT GLUCOSE ([id number]) Routine 09/01/2025 2:23 PM EST Type 2 [...] Health Maintenance Results * (ABNORMAL) Creatinine, Serum (10/03/2025 9:23 AM EST) Creatinine, Serum 1.51(H) 0.5 - 1.4 mg/dL [facility] Estimated Glomerular Filt Rate 48 [facility] Comment:Chronic Kidney Disea se: Estimated GFR < 60 mL/min/1.63k2Dbyabe Kidney Disease: Estimated GFR < 15 mL/min/1.73m2 10/03/2025 9:23 AM EST 10/03/2025 9:23 AM EST us Generic External Data Provider LAB BLOOD ORDERAB LES Final Result Performing Organization Address [facility] Co de Phone Number [facility] [address] [place] [phone] * (ABNORMAL) BUN (Blood Urea Nitrogen) (10/03/2025 9:23 AM EST) Urea Nitrogen (BUN) 26(H) 9 - 16 mg/dL [facility] 10/03/2025 9:23 AM EST 10/03/2025 9:23 AM EST us Generic External Data Provider LAB BLOOD ORDERAB LES Final Result Performing Organization Address [facility] Co de Phone Number [facility] [address] [place] [phone] * Electrolyte Panel (10/03/2025 9:23 AM EST) Sodium 139 135 - 145 mmol/L [facility] Potassium 3.7 3.3 - 5.1 mmol/L [facility] Chloride 104 96 - 108 mmol/L [facility] Carbon Dioxide 22 22 - 29 mmol/L [facility] Anion Gap 17 12 - 20 [facility] 10/03/2025 9:23 AM EST 10/03/2025 9:23 AM EST Generic External Data Provider LAB BLOOD ORDERAB LES Final Result Performing Organization Address [facility] Co de Phone Number [facility] [address] [place] [phone] * POCT Rapid Influenza B HENRY ID NOW (09/30/2025 11:29 AM EST) Only the most recent of2 resultswithin the time period is included. [facility] Influenza B Negative Negative, Indeterminate [facility] Swab 09/30/2025 11:2 9 AM EST Mahsa Johnson DO POINT OF CARE TEST ENTER/JAQUELINE T ORDERABLES Final Result Performing Organization Address [facility] Co de Phone Number [facility] [address] [place] [phone] * POCT Rapid Influenza A HENRY ID NOW (09/30/2025 11:29 AM EST) Only the most recent of2 resultswithin the time period is included. [facility] Influenza A Negative Negative, Indeterminate [facility] Swab 09/30/2025 11:2 9 AM EST Mahsa Johnson DO POINT OF CARE TEST ENTER/JAQUELINE T ORDERABLES Final Result Performing Organization Address [facility] de Phone Number [facility] [address] [place] [phone] * POCT Rapid Strep A HENRY ID NOW (09/30/2025 11:29 AM EST) Only the most recent of2 resultswithin the time period is included. [facility] Rapid Strep A Screen Negative Negative, None Detected Swab 09/30/2025 11:2 9 AM EST Mahsa Johnson DO POINT OF CARE TEST ENTER/JAQUELINE T ORDERABLES Final Result * (ABNORMAL) POCT Rapid Covid-19 BinaxNOW (09/30/2025 11:28 AM EST) Only the most recent of2 resultswithin the time period is included. [facility] Rapid COVID Ag Positive Swab 09/30/2025 11:2 8 AM EST Mahsa Johnson DO POINT OF CARE TEST ENTER/JAQUELINE T ORDERABLES Final Result * (ABNORMAL) POCT Hgb A1c (09/01/2025 2:23 PM EST) Hemoglobin A1C 8.5(A) 4.0 - 5.7 % QC Media Lot # [id number] Lot# Expiration Date [id number] Blood 09/01/2025 2:23 PM EST Tor Bañuelos MD POINT OF CARE TEST EN TER/EDIT ORDERABLES Final Result * POCT Glucose (09/01/2025 2:23 PM EST) Pathologist [facility] Glucose Blood, POC 193 60 - 200 mg/dL QC Media Lot # [id number] Lot# Expiration Date [id number] Blood Capillary blood specimen / Unknown 09/01/2025 2:23 PM EST Tor Bañuelos MD POINT OF CARE TEST EN TER/EDIT ORDERABLES Final Result * (ABNORMAL) Lipid Panel with Reflex to Direct LDL (09/09/2023 7:57 AM EST) Triglycerides 448(H) <150 mg/dL [facility] Comment:Desirable Triglyceri de: less than 150 mg/dLBorderline High Triglyceride 150-199 mg/dLHigh Triglyceride: 200-499 mg/dLVery High Triglyceride: greater than or equal to 5OO mg/dL Cholesterol 204(H) <200 mg/dL [facility] Comment:Desirable Cholestero l: less than 200 mg/dLBorderline High Cholesterol: 200-239 mg/dLHigh Cholesterol: greater than 239 mg/dL LDL Cholesterol Calculated TNP <100 mg/dL [facility] Comment:Unable to calculate the LDL. The formula of Friedwald,Shepherd, and Pearl is only valid if the triglycerides areless than 400 mg/dl. HDL Cholesterol 34(L) >40 mg/dL [facility] Comment:Desirable HDL: great er than 40 mg/dL Note: This HDL assay may give artificially low results in patients with liver disease. Blood 09/09/2023 7:57 AM EST 09/09/2023 7:57 AM EST us Tor Bañuelos MD LAB BLOOD ORDERABLES Final Result [facility] [address] [place] [phone] * Colonoscopy (01/25/2022) Colonoscopy Normal Normal [...] Patient has chronic kidney disease 09/30/2025 Insurance [facility] < [address] [place] [id number] Care Teams Obiee Consultant Relationship Specialty Start Date End Date Tor Crews MD [address] [place] [phone] PCP - General Internal Medicine 07/21/14
--- OUTSIDE RECORDS SUMMARY | 2025-10-17 17:12 | XMS_ITS | Encounter Summary ---
Author Organization [employer] Address [address] [facility] [address] [place] [address] Care Team Providers Care Crinkling Machine Operator Name Role Phone Tor Crews MD Primary Care Provide r Reason for Visit * Reason Comments Med Refill Encounter Details Date Type Department Care Team ([facility] st Contact Info) Description 11/18/2024 Refill [facility] [address] [place], [place] [phone] Tor Crews MD [address] [place], [place] [phone] Type 2 diabetes mellitus without complications (CMS/HCC) [...] 12/13/2025 10:30 AM EST Office Visit [facility] [address] [place] [address] Tor Cresw MD [address] [place] [address] documented as of this encounter Visit Diagnoses Diagnosis Type 2 diabetes mellitus without complications (HCC) documented in this encounter Additional Health Concerns Assessment Noted Time PHQ-9 Depression Total Score: 4 03/04/20 23 2:58 PM EDT documented as of this encounter Care Teams Crinkling Machine Operator Relationship Specialty Start Date End Date Tor Crews MD [address] [place] [address] PCP - General Internal Medicine 07/21/14 documented as of this encounter
--- OUTSIDE RECORDS SUMMARY | 2025-10-17 17:13 | XMS_ITS | Encounter Summary ---
Author Organization [employer] Address [address] [facility] 7t [place] [address] Care Team Providers Care Director Day Care Center Name Role Phone Tor Crews MD Primary Care Provide r Encounter Details Date Type Department Care Team (Late Contact Info) Description 12/17/[address] [facility] [address] [place], [place] [phone] Ally Rodríguez LPN Social History Tobacco Use [...] Description 12/13/2025 10:30 AM EST [address] [facility] [address] [place] [address] Tor Crews MD [address] [place] [address] documented as of this encounter Visit Diagnoses Not on filedocumented in this encounter Care Teams Director Day Care Center Relationship Specialty Start Date End Date Tor Crews MD [address] [place] [address] [phone] PCP - General Internal Medicine 07/21/14 documented as of this encounter
--- OUTSIDE RECORDS SUMMARY | 2025-10-17 17:13 | XMS_ITS | Encounter Summary ---
Author Organization [employer] Address [address] [facility] [address] [place] [address] Care Team Providers Care Communications Station Manager Name Role Phone Tor Crews MD Primary Care Provide r Encounter Details Date Type Department Care Team ([facility] Contact Info) Description 11/28/2022 Abstract [facility] [address] [place] [phone] Tor Crews MD [address] [place] [address] [phone] Social History Tobacco Use Types Packs/Day Years [...] Upcoming Encounters Date Type Department Care Team ([facility] Contact Info) Description 12/13/2025 10:30 AM EST Office Visit [facility] [address] [place] [phone] Tor Crews MD [address] [place], [place] [phone] documented as of this encounter Visit Diagnoses Not on filedocumented in this encounter Care Teams Communications Station Manager Relationship Specialty Start Date End Date Tor Crews MD [address] [place] [address] PCP - General Internal Medicine 07/21/14 documented as of this encounter
--- OUTSIDE RECORDS SUMMARY | 2025-10-17 17:13 | XMS_ITS | Encounter Summary ---
Author Organization [employer] Address [address] [facility] 7t [place] [address] Care Team Providers Care Oracle Developer Name Role Phone Tor Crews MD Primary Care Provide r Reason for Visit * Reason Comments Med Refill Encounter Details Date Type Department Care Team (Late Contact Info) Description 05/23/2023 Refill [facility] [address] [place] [address] [phone] Tor Crews MD [address] [place], [place] [phone] Acute pain of right knee Social History [...] Description 12/13/2025 10:30 AM EST Office Visit [facility] [address] [place], [place] [phone] Tor Crews MD [address] [place], [place] [phone] documented as of this encounter Visit Diagnoses Diagnosis Acute pain of right knee documented in this encounter Additional Health Concerns Assessment Noted Time PHQ-9 Depression Total Score: 4 03/04/20 23 2:58 PM EDT documented as of this encounter Care Teams Oracle Developer Relationship Specialty Start Date End Date Tor Crews MD [address] [place] [address] PCP - General Internal Medicine 07/21/14 documented as of this encounter
--- OUTSIDE RECORDS SUMMARY | 2025-10-17 17:13 | XMS_ITS | Encounter Summary ---
Author Organization [employer] Address [address] [facility] [address] [place] [address] Care Team Providers Care Machine I Engraver Name Role Phone Tor Crews MD Primary Care Provide r Encounter Details Date Type Department Care Team ([facility] Contact Info) Description 02/27/2023 Abstract [facility] [address] [place] [phone] Tor Crews MD [address] [place], [place] [phone] Social History Tobacco Use Types Packs/Day Years [...] Upcoming Encounters Date Type Department Care Team ([facility] Contact Info) Description 12/13/2025 10:30 AM EST Office Visit [facility] [address] [place] [address] Tor Crews MD [address] [place], [place] [phone] documented as of this encounter Procedures Procedure Name Priority Date/Time Associated Diagnosis Comments COLONOSCOPY Routine 01/25/2022 documented in this encounter Results * Colonoscopy (01/25/2022) Colonoscopy Normal Normal 01/25/2022 Narrative Joselyn Radha - 01/25/2022 2:56 PM EDT Recommended 10 year follow up ( see scanned notes) us Historical Provider [employer] MAINTENANCE Edited Result - Final documented in this encounter Visit Diagnoses Not on filedocumented in this encounter Care Teams Machine I Engraver Relationship Specialty Start Date End Date Tor Crews MD [address] [place] [phone] PCP - General Internal Medicine 07/21/14 documented as of this encounter
--- OUTSIDE RECORDS SUMMARY | 2025-10-17 17:13 | XMS_ITS | Clinical Summary ---
Author Organization [address] [place] [address] Address [address] [place] [address] Phone Care Team Providers Care Product Marketing Consultant Name Role Phone Tor Villela MD Primary [...] fective 2019-Present) Name:CARMINA GODINEZ Relation to Subscriber:Self Name:Carmina Godinez Payer ID:[id number] Group ID:[id number] Type:Not on file Address: [address] [place] [phone] Care Teams Product Marketing Consultant Relationship Specialty Start Date End Date Tor Villela MD [address] [place] [address] [place] [phone] PCP - General 07/29/24
--- OUTSIDE RECORDS SUMMARY | 2025-10-17 17:13 | XMS_ITS | Encounter Summary ---
Author Organization [employer] Address [address] [place] [address] Care Team Providers Care Instructional Services Librarian Name Role Phone Tor Crews MD Primary Care Provide r Reason for Visit * Reason Onset Date Comments triage 01/13/2023 Encounter Details Date Type Department Care Team ([facility] st Contact Info) Description 01/13/2023 Telephone [facility] [address] [place], [place] [phone] Tor Crews MD [address] [place], [place] [phone] triage Social History Tobacco Use Types Packs/Day [...] 01/13/2023 1:24 PM EDT Triage call with [employer] Operator ID [id number] Pt reports upper abdominal pain since last [...] light yellow/clear. Advised Pt to come to [facility] today and Pt agreed. Home care [...] Description 12/13/2025 10:30 AM EST Office Visit [facility] [address] [place] [address] Tor Crews MD [address] [place] [address] documented as of this encounter Visit Diagnoses Not on filedocumented in this encounter Care Teams Instructional Services Librarian Relationship Specialty Start Date End Date Tor Crews MD [address] [place] [address] PCP - General Internal Medicine 07/21/14 documented as of this encounter
--- OUTSIDE RECORDS SUMMARY | 2025-10-17 17:13 | XMS_ITS | Encounter Summary ---
Author Organization [employer] Address [address] [facility] [address] [place] [address] Care Team Providers Care Project Geophysicist Name Role Phone Tor Crews MD Primary Care Provide r Reason for Visit * Reason Comments Med Refill Encounter Details Date Type Department Care Team ([facility] st Contact Info) Description 03/17/2025 Refill [facility] [address] [place], [place] [phone] Sinai Sesay MD [address] [place] [address] Social History Tobacco Use Types Packs/Day Years [...] Description 12/13/2025 10:30 AM EST Office Visit [facility] [address] [place] [address] Tor Crews MD [address] [place] [phone] documented as of this encounter Visit Diagnoses Not on filedocumented in this encounter Additional Health Concerns Assessment Noted Time PHQ-9 Depression Total Score: 4 03/04/20 23 2:58 PM EDT documented as of this encounter Care Teams Project Geophysicist Relationship Specialty Start Date End Date Tor Crews MD [address] [place] [phone] PCP - General Internal Medicine 07/21/14 documented as of this encounter
--- OUTSIDE RECORDS SUMMARY | 2025-10-17 17:13 | XMS_ITS | Clinical Summary ---
Author Organization [facility] Address [address] [place] [address] [place] [phone] Phone Care Team Providers Care Vaccine Key Customer Leader Name Role Phone Tor Guzman MD Primary [...] (6 to 49 Years) Discontinued 04/17/2023 Insurance [facility] ([id number]) [facility] ([id number]) Care Teams Vaccine Key Customer Leader Relationship Specialty Start Date End Date Tor Guzman MD PCP - General 11/06/20
== END 2025-10-17 14:17 | disposition home or self-care (01) ==
LOC: HO.HCS 13:45
PROVIDERS: PCP Internal Medicine; Visit Provider Nurse Practitioner Family
DX: I42.8 Other cardiomyopathies (principal); Z95.810 Presence of automatic (implantable) cardiac defibrillator; G47.33 Obstructive sleep apnea (adult) (pediatric); I10 Essential (primary) hypertension
CPT/HCPCS: 99214; G2211

== ENCOUNTER → 2025-10-17 13:45 | Outpatient (BNVA) | payer OTHER, SELFPAY | PROVIDERS: PCP Internal Medicine; Visit Provider Nurse Practitioner Family | DX: I42.8 Other cardiomyopathies (principal); G47.33 Obstructive sleep apnea (adult) (pediatric); I13.0 Hypertensive heart and chronic kidney disease with heart failure and stage 1 through stage 4 chronic kidney disease, or unspecified chronic kidney disease; I50.20 Unspecified systolic (congestive) heart failure; N18.9 Chronic kidney disease, unspecified; Z95.810 Presence of automatic (implantable) cardiac defibrillator | CPT/HCPCS: 99212 ==